=== PATIENT | female | born 1945 | race Caucasian/White ===

== ENCOUNTER 2017-06-26 12:32 | Inpatient (IN) | payer MEDICARE, MEDICAID ==
[2017-06-26 12:32] VITALS: BMI 23.3
--- NOTE | 2017-06-26 12:52 | C.PDOC ---
History Of Present Illness 72 year old female with PMHx of open heart surgery, arthritis, HTN, DM presents to the ED for evaluation of chest pain along with SOB that has been going on for the past 2-3 weeks. Patient reports she took aspirin last night for her CP but did not help and she was not able to sleep all night due to the pain. Patient looks pale and anemic but she denies any prior hx of anemia. Patient denies abdominal pain, diarrhea, blood in the stool, fever, chills, nausea, vomit, headache, weakness, numbness. Time Seen by Provider: 06/26/17 12:37 Chief Complaint (Nursing): Shortness Of Breath History Per: Patient History/Exam Limitations: no limitations Onset/Duration Of Symptoms: Days Current Symptoms Are (Timing): Still Present Quality: "Pain" Exacerbating Factor(s): Exertion Associated Symptoms: Chest Pain, Ankle/Leg Swelling Recent travel outside of the [place]: No Additional History Per: Patient, Family Past Medical History Reviewed: Historical Data, Nursing Documentation, Vital Signs Vital Signs: Last Vital Signs Temp 97.2 F L 06/26/17 16:36 Pulse 70 06/26/17 16:36 Resp 20 06/26/17 16:36 BP 157/97 H 06/26/17 16:36 Pulse Ox 98 06/26/17 16:36 - Medical History PMH: Anemia, Arthritis, Atrial Fibrillation, CAD, Cardia Arrhythmia, CHF, COPD, Dementia, Diabetes, HTN, Hypercholesterolemia, Osteoporosis, Rheumatoid Arthritis (on embril) Denies: Hepatitis, HIV, Chronic Kidney Disease, Seizures, Sexually Transmitted Disease Surgical History: Appendectomy, CABG, Coronary Stent Denies: Pacemaker - [facility] Procedures ASSISTANCE WITH RESPIRATORY VENTILATION, <24 HRS, CPAP (03/24/15) CORONAR ARTERIOGR-2 CATH (04/29/13) ESOPHAGOGASTRODUODENOSCOPY [EGD] W/CLOSED BIOPSY (11/01/14) EXCISION OF SMALL INTESTINE, ENDO, DIAGN (05/20/15) FLUOROSCOPY OF LEFT HEART USING LOW OSMOLAR CONTRAST (06/25/16) FLUOROSCOPY OF MULT COR A GRAFT USING L OSM CONTRAST (06/25/16) FLUOROSCOPY OF MULT COR ART USING L OSM CONTRAST (06/25/16) LEFT HEART CARDIAC CATH (04/29/13) LT HEART ANGIOCARDIOGRAM (04/29/13) MEASURE OF CARDIAC SAMPL & PRESSURE, L HEART, PERC APPROACH (06/25/16) PACKED CELL TRANSFUSION (11/01/14) PERCUTANEOUS TRANSLUMINAL CORONARY ANGIOPLASTY [PTCA] (04/29/13) PLAIN RADIOGRAPHY OF LEFT HEART USING OTHER CONTRAST (03/24/15) PLAIN RADIOGRAPHY OF MULT COR ART USING OTH CONTRAST (03/24/15) PROCEDURE ON SINGLE VESSEL (04/29/13) TRANSFUSE NONAUT RED BLOOD CELLS IN PERIPH VEIN, PERC (05/20/15) Family History: States: Unknown Family Hx - Social History Hx Tobacco Use: Yes Hx Alcohol Use: No Hx Substance Use: No - Immunization History Hx Tetanus Toxoid Vaccination: No Hx Influenza Vaccination: No Hx Pneumococcal Vaccination: No Review Of Systems Constitutional: Negative for: Fever, Chills Cardiovascular: Positive for: Chest Pain. Negative for: Palpitations Respiratory: Positive for: Shortness of Breath. Negative for: Cough Gastrointestinal: Negative for: Nausea, Vomiting, Abdominal Pain, Diarrhea Genitourinary: Negative for: Dysuria, Hematuria Skin: Negative for: Rash Neurological: Negative for: Weakness, Numbness, Headache, Dizziness Physical Exam - Physical Exam Appears: Non-toxic, No Acute Distress Skin: Warm, Dry, Pale (anemic looking) Head: Atraumatic, Normacephalic Eye(s): bilateral: Normal Inspection Nose: No Discharge, No Epistaxis Oral Mucosa: Moist Neck: Normal ROM, Supple Chest: Symmetrical, Other (right chest birthmark, midline scar) Cardiovascular: Rhythm Regular, No Murmur Respiratory: Normal Breath Sounds, No Rales, No Rhonchi, No Wheezing Gastrointestinal/Abdominal: Soft, No Tenderness, No Guarding, No Rebound, Hernia (ventral), Other (midline scar) Extremity: Normal ROM, No Pedal Edema, No Calf Tenderness, Capillary Refill (< 2 seconds), No Deformity, Swelling (B/L pitting edema L > R) Neurological/Psych: Oriented x3, Normal Speech, Normal Cognition ED Course And Treatment - Laboratory Results Result Diagrams: 06/26/17 13:21 06/26/17 13:21 O2 Sat by Pulse Oximetry: 99 (On RA) Pulse Ox Interpretation: Normal - Radiology CXR: Viewed By Me, Read By Radiologist CXR Interpretation: Yes: Other (Interval limited right pleural effusion is in question with borderline right basilar atelectasis or infiltrate. 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 There is borderline pulmonary venous congestion.) Medical Decision Making Medical Decision Making: Impression : Persistent CP for the past 2-3 weeks, along with SOB. Plan: * EKG * Labs * CXR * UA Dr. Cedeno was called multiple times pending call back, ultimately he called back. Spoke with him regarding the patient and accepted the patient to be admitted to his service. Disposition Counseled Patient/Family Regarding: Studies Performed - Disposition Disposition: HOSPITALIZED Disposition Time: 14:47 Condition: GUARDED - POA Present On Arrival: None - Clinical Impression Clinical Impression: ACS (acute coronary syndrome), SOB (shortness of breath) - Scribe Statement The provider has reviewed the documentation as recorded by the Scribe De Tomas All medical record entries made by the Scribe were at my direction and personally dictated by me. I have reviewed the chart and agree that the record accurately reflects my personal performance of the history, physical exam, medical decision making, and the department course for this patient. I have also personally directed, reviewed, and agree with the discharge instructions and disposition. Decision To Admit - Pt Status Changed To: Hospital Disposition Of: Inpatient - Admit Certification Admit to Inpatient:: After my assessment, the patient will require hospitalization for at least two midnights. This is because of the severity of symptoms shown, intensity of services needed, and/or the medical risk in this patient being treated as an outpatient. - InPatient: Physician Admission Certification: I certify that this patient requires 2 or more midnights of care for the following reason:: chest pain, sob, complicated - . Bed Request Type: Telemetry Patient Diagnosis: ACS (acute coronary syndrome), SOB (shortness of breath)
[2017-06-26 13:26] LABS: BASO # 0.1 K/uL (0.0-0.2); BASO % 2.6 % (0.0-2.0); EOS % 0.6 % (0.0-4.0); HEMOGLOBIN 10.7 g/dL (11.0-16.0); LYMPH # 0.3 K/uL (1.0-4.3); LYMPH % 7.7 % (20.0-40.0); MEAN CORPUSCULAR HEMOGLOBIN 28.5 pg (27.0-31.0); MEAN CORPUSCULAR HGB CONC 32.3 g/dL (33.0-37.0); MEAN PLATELET VOLUME 9.2 fL (7.2-11.7); MONO # 0.5 K/uL (0.0-0.8); MONO % 13.2 % (0.0-10.0); NEUT # 2.8 K/uL (1.8-7.0); NEUT % 75.9 % (50.0-75.0); NRBC % 0.1 % (0.0-2.0); PLATELET COUNT 171 K/uL (130-400); RBC 3.76 Mil/uL (3.80-5.20); RED CELL DISTRIBUTION WIDTH 19.4 % (11.5-14.5); WHITE BLOOD COUNT 3.7 K/uL (4.8-10.8)
[2017-06-26 13:27] LABS: MEAN CELL VOLUME 88.3 fL (81.0-99.0)
--- NOTE | 2017-06-26 13:49 | RAD ---
PROCEDURE: CHEST RADIOGRAPH, 1 VIEW HISTORY: chest pain COMPARISON: Portable chest 06/27/2016. FINDINGS: LUNGS: Borderline patchy atelectasis or infiltrate is questioned at the right base. None is seen at the left. PLEURA: No pneumothorax bilaterally. Minimal right pleural effusion is in question. No left pleural effusion. CARDIOVASCULAR: Using sternotomy is now identified as well as prosthetic cardiac valve. Cardiomegaly appears grossly stable. Element of pulmonary venous congestion is questioned. Further clinical correlation is advised. OSSEOUS STRUCTURES: No significant abnormalities. VISUALIZED UPPER ABDOMEN: Normal. OTHER FINDINGS: None. IMPRESSION: Interval limited right pleural effusion is in question with borderline right basilar atelectasis or infiltrate. 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 There is borderline pulmonary venous congestion.
[2017-06-26 13:51] LABS: ALB/GLOB RATIO 0.6 (1.0-2.1); ALBUMIN 3.4 g/dL (3.5-5.0); ALT/SGPT 31 U/L (9-52); AST/SGOT 56 U/L (14-36); BLOOD UREA NITROGEN 17 mg/dL (7-17); CALCIUM 7.8 mg/dl (8.6-10.4); GFR AFRICAN-AMERICAN > 60; GFR NON-AFRICAN AMERICAN > 60
[2017-06-26 13:55] LABS: ANISOCYTOSIS SLIGHT; BANDS 3 % (0-2); EOSINOPHIL 3 % (0-4); HYPOCHROMIC SLIGHT; LYMPHOCYTE 14 % (20-40); MONOCYTE 12 % (0-10); NEUTROPHIL 68 % (50-75); NUCLEATED RED BLOOD CELL 1 % (0-0); PLATELET ESTIMATE NORMAL (NORMAL); POIKILOCYTOSIS SLIGHT; TOTAL CELLS COUNTED 100
[2017-06-26 13:56] LABS: MICROCYTOSIS SLIGHT; OVALOCYTES SLIGHT
[2017-06-26 13:58] LABS: B-TYPE NATRIURETIC PEPTIDE 34600 pg/mL (0-900)
[2017-06-26 15:55] LABS: SQUAMOUS EPITHIAL 1 /hpf (0-5); URINE BACTERIA MANY (<OCC); URINE BILIRUBIN NEGATIVE (NEGATIVE); URINE BLOOD 2+ (NEGATIVE); URINE CLARITY Clear (Clear); URINE COLOR Amber (YELLOW); URINE GLUCOSE (UA) NORMAL (Normal); URINE LEUKOCYTE ESTERASE NEG Leu/uL (Negative); URINE NITRATE NEGATIVE (NEGATIVE); URINE PROTEIN 2+ mg/dL (NEGATIVE)
[2017-06-26] MEDS ORDERED: Home Med 1 UNIT (Potassium Chloride [Potassium Chloride] 20 MEQ) PO SCH (16:30)
[2017-06-26 17:39] LABS: INR 1.4; PROTHROMBIN TIME 15.8 SECONDS (9.7-12.2)
[2017-06-26] MEDS: Rosuvastatin Calcium 2.5 mg Tab PO SCH (22:11)
--- NOTE | 2017-06-26 23:20 | CP.PCM.HP ---
History of Present Illness - History of Present Illness History of Present Illness: 72 year old female with PMHx of open heart surgery, arthritis, HTN, DM presents to the ED for evaluation of chest pain along with SOB that has been going on for the past 2-3 weeks. Patient reports she took aspirin last night for her CP but did not help and she was not able to sleep all night due to the pain. Patient looks pale and anemic but she denies any prior hx of anemia. Patient denies abdominal pain, diarrhea, blood in the stool, fever, chills, nausea, vomit, headache, weakness, numbness. IN ER TNI NEG BNP IS UP 2017 HAD CABG , [facility] SINCE SURGERY FIRST EPISODE OF ADMISSION H/O T2DM ON INSULIN , LV EF IS 35% Present on Admission - Present on Admission Any Indicators Present on Admission: No Review of Systems - Constitutional Constitutional: Lethargy, Malaise. absent: As Per HPI, Anorexia, Chills, Daytime Sleepiness, Excessive Sweating, Fatigue, Fever, Frequent Falls, Headache , Increased Appetite, Night Sweats, Snoring, Sleep Apnea, Weight Gain, Weight Loss, Weakness, Other - EENT Eyes: absent: As Per HPI, Blind Spots, Blurred Vision, Change in Vision, Decreased Night Vision, Diplopia, Discharge, Dry Eye, Exophthalmos, Floaters, Irritation, Itchy Eyes, Loss of Peripheral Vision, Pain, Photophobia, Requires Corrective Lenses, Sees Flashes, Spots in Vision, Tunnel Vision, Other Visual Disturbances, Loss of Vision, Other Ears: absent: As Per HPI, Decreased Hearing, Ear Discharge, Ear Pain, Tinnitus, Abnormal Hearing, Disequilibrium, Dizziness, Other Nose/Mouth/Throat: absent: As Per HPI, Epistaxis, Nasal Congestion, Nasal Discharge, Nasal Obstruction, Nasal Trauma, Nose Pain, Post Nasal Drip, Sinus Pain, Sinus Pressure, Bleeding Gums, Change in Voice, Dental Pain, Dry Mouth, Dysphagia, Halitosis, Hoarsness, Lip Swelling, Mouth Lesions, Mouth Pain, Odynophagia, Sore Throat, Throat Swelling, Tongue Swelling, Facial Pain, Neck Pain, Neck Mass, Other - Breasts Breasts: absent: As Per HPI, Change in Shape, Mass, Pain, Nipple Discharge, Nipple Inversion, Skin Changes, Swelling, Other - Cardiovascular Cardiovascular: Dyspnea, Dyspnea on Exertion, Edema, Orthopnea, Palpitations, Pedal Edema. absent: As Per HPI, Acrocyanosis, Chest Pain, Chest Pain at Rest, Chest Pain with Activity, Claudication, Diaphoresis, Irregular Heart Rhythm, Pain Radiating to Arm/Neck/Jaw, Leg Edema, Leg Ulcers, Lightheadedness, Paroxysmal Nocturnal Dyspnea, Radiating Pain, Rapid Heart Rate, Slow Heart Rate , Syncope, Other - Respiratory Respiratory: absent: As Per HPI, Cough, Dyspnea, Hemoptysis, Dyspnea on Exertion , Wheezing, Snoring, Stridor, Pain on Inspiration, Chest Congestion, Excessive Mucous Production, Change in Mucous Color, Pain with Coughing, Other - Gastrointestinal Gastrointestinal: absent: As Per HPI, Abdominal Pain, Belching, Bloating, Change in Bowel Habits, Change in Stool Character, Coffee Ground Emesis, Constipation, Cramping, Diarrhea, Dyspepsia, Dysphagia, Early Satiety, Excessive Flatus, Fecal Incontinence, Heartburn, Hematemesis, Hematochezia, Loose Stools, Melena, Nausea, Odynophagia, Temesmus, Vomiting, Other - Musculoskeletal Musculoskeletal: Arthralgias, Deformity, Muscle Weakness. absent: As Per HPI, Abnormal Gait, Atrophy, Back Pain, Joint Swelling, Limited Range of Motion, Loss of Height, Muscle Cramps, Myalgias, Neck Pain, Numbness, Radiating Pain into Limb, Stiffness, Tingling, Other - Integumentary Integumentary: absent: As Per HPI, Acne, Alopecia, Bleeding Lesions, Change in Hair, Change in Nails, Change in Pigmentation, Changing Lesions, Dry Skin, Erythema, Furuncle, Hirsutism, Lesions, New Lesions, Non-Healing Lesions, Photosensitivity, Pruritus, Rash, Skin Pain, Skin Ulcer, Sores, Striae, Swelling , Unusual Bruising, Wounds, Jaundice, Other - Neurological Neurological: Abnormal Hearing, Weakness. absent: As Per HPI, Abnormal Gait, Abnormal Movements, Abnormal Speech, Behavioral Changes, Burning Sensations, Confusion, Convulsions, Disequilibrium, Dizziness, Numbness, Focal Weakness, Headaches, Lack of Coordination, Loss of Vision, Memory Loss, Paresthesias, Radicular Pain, Restless Legs, Sensory Deficit, Syncope, Tingling, Tremor, Vertigo, Other Visual Disturbances, Other - Psychiatric Psychiatric: Change in Appetite, Difficulty Concentrating, Memory Loss Past Patient History - Infectious Disease Hx of Infectious Diseases: None - Past Medical History & Family History Past Medical History?: Yes - Past Social History Smoking Status: Former Smoker - CARDIAC Hx Cardiac Disorders: Yes Hx Atrial Fibrillation: Yes Hx Cardia Arrhythmia: Yes Hx Congestive Heart Failure: Yes Hx Hypercholesterolemia: Yes Hx Hypertension: Yes Hx Pacemaker: No - PULMONARY Hx Respiratory Disorders: Yes Hx Chronic Obstructive Pulmonary Disease (COPD): Yes - NEUROLOGICAL Hx Neurological Disorder: Yes Hx Dementia: Yes Hx Seizures: No - HEENT Hx HEENT Problems: No - RENAL Hx Chronic Kidney Disease: No - ENDOCRINE/METABOLIC Hx Endocrine Disorders: Yes Hx Diabetes Mellitus Type 2: Yes - HEMATOLOGICAL/ONCOLOGICAL Hx Blood Disorders: Yes Hx Anemia: Yes Hx Human Immunodeficiency Virus (HIV): No - INTEGUMENTARY Hx Dermatological Problems: No - MUSCULOSKELETAL/RHEUMATOLOGICAL Hx Musculoskeletal Disorders: Yes Hx Arthritis: Yes Hx Falls: No Hx Osteoporosis: Yes Hx Rheumatoid Arthritis: Yes (on embril) - GASTROINTESTINAL Hx Gastrointestinal Disorders: Yes Hx Ulcer: Yes Other/Comment: appendectomy history of endoscopies. ventral hernia - GENITOURINARY/GYNECOLOGICAL Hx Genitourinary Disorders: No Hx Sexually Transmitted Disorders: No - PSYCHIATRIC Hx Psychophysiologic Disorder: No Hx Substance Use: No - SURGICAL HISTORY Hx Surgeries: Yes Hx Appendectomy: Yes Hx Coronary Artery Bypass Graft: Yes Hx Coronary Stent: Yes - ANESTHESIA Hx Anesthesia: Yes Hx Anesthesia Reactions: No Hx Malignant Hyperthermia: No Meds Allergies/Adverse Reactions: Allergies Allergy/AdvReac Type Severity Reaction Status Date / Time No Known Allergies Allergy Verified 06/26/17 12:41 Physical Exam - Head Exam Head Exam: ATRAUMATIC - Eye Exam Eye Exam: EOMI, Normal appearance, PERRL - Neck Exam Neck exam: Positive for: Normal Inspection - Respiratory Exam Respiratory Exam: Decreased Breath Sounds, Rhonchi - Cardiovascular Exam Cardiovascular Exam: REGULAR RHYTHM, +S1, +S2 - GI/Abdominal Exam GI & Abdominal Exam: Normal Bowel Sounds, Soft. absent: Tenderness - Extremities Exam Extremities exam: Positive for: calf tenderness, full ROM, joint swelling, normal capillary refill, normal inspection, pedal edema, tenderness, pedal pulses present - Neurological Exam Neurological exam: Alert, Altered, CN II-XII Intact, Motor Sensory Deficit, Normal Gait, Oriented x3, Reflexes Normal Results - Vital Signs Recent Vital Signs: Last Vital Signs Temp 97.3 F L 06/26/17 20:55 Pulse 65 06/26/17 22:17 Resp 18 06/26/17 20:55 BP 135/85 06/26/17 20:55 Pulse Ox 97 06/26/17 20:55 - Labs Result Diagrams: 06/27/17 06:13 06/27/17 06:13 Labs: Laboratory Results - last 24 hr 06/26/17 06/26/17 06/26/17 12:41 13:21 13:21 WBC 3.7 L RBC 3.76 L Hgb 10.7 L Hct 33.2 L MCV 88.3 D MCH 28.5 MCHC 32.3 L RDW 19.4 H Plt Count 171 MPV 9.2 Neut % (Auto) 75.9 H Lymph % (Auto) 7.7 L [place] % (Auto) 13.2 H Eos % (Auto) 0.6 Baso % (Auto) 2.6 H Neut # 2.8 Lymph # 0.3 L [place] # 0.5 Eos # 0.0 Baso # 0.1 Neutrophils % (Manual) 68 Band Neutrophils % 3 H Lymphocytes % (Manual) 14 L Monocytes % (Manual) 12 H Eosinophils % (Manual) 3 Nucleated RBC % 1 H Platelet Estimate Normal Hypochromasia (manual) Slight Poikilocytosis (manual Slight Anisocytosis (manual) Slight Microcytosis (manual) Slight Macrocytosis (manual) Slight Ovalocytes Slight PT INR APTT Sodium 123 L Potassium 5.3 H Chloride 92 L Carbon Dioxide 23 Anion Gap 14 BUN 17 Creatinine 0.9 Est GFR ( Amer) > 60 Est GFR (Non-Af Amer) > 60 POC Glucose (mg/dL) 117 H Random Glucose 114 H Calcium 7.8 L Total Bilirubin 1.5 H AST 56 H ALT 31 Alkaline Phosphatase 177 H Troponin I 0.0260 NT-Pro-B Natriuret Pep 19261 H Total Protein 8.9 H Albumin 3.4 L Globulin 5.5 H Albumin/Globulin Ratio 0.6 L Urine Color Urine Clarity Urine pH Ur Specific [place] Urine Protein Urine Glucose (UA) Urine Ketones Urine Blood Urine Nitrate Urine Bilirubin Urine Urobilinogen Ur Leukocyte Esterase Urine WBC (Auto) Urine RBC (Auto) Ur Squamous Epith Cells Urine Bacteria Hyaline Casts 06/26/17 06/26/17 15:43 17:12 WBC RBC Hgb Hct MCV MCH MCHC RDW Plt Count MPV Neut % (Auto) Lymph % (Auto) [place] % (Auto) Eos % (Auto) Baso % (Auto) Neut # Lymph # [place] # Eos # Baso # Neutrophils % (Manual) Band Neutrophils % Lymphocytes % (Manual) Monocytes % (Manual) Eosinophils % (Manual) Nucleated RBC % Platelet Estimate Hypochromasia (manual) Poikilocytosis (manual Anisocytosis (manual) Microcytosis (manual) Macrocytosis (manual) Ovalocytes PT 15.8 H INR 1.4 APTT 38 H Sodium Potassium Chloride Carbon Dioxide Anion Gap BUN Creatinine Est GFR ( Amer) Est GFR (Non-Af Amer) POC Glucose (mg/dL) Random Glucose Calcium Total Bilirubin AST ALT Alkaline Phosphatase Troponin I NT-Pro-B Natriuret Pep Total Protein Albumin Globulin Albumin/Globulin Ratio Urine Color Janie Urine Clarity Clear Urine pH 5.0 Ur Specific [place] 1.016 Urine Protein 2+ H Urine Glucose (UA) Normal Urine Ketones Negative Urine Blood 2+ H Urine Nitrate Negative Urine Bilirubin Negative Urine Urobilinogen 4.0 H Ur Leukocyte Esterase Neg Urine WBC (Auto) 2 Urine RBC (Auto) 6 H Ur Squamous Epith Cells 1 Urine Bacteria Many H Hyaline Casts 11-20 H Assessment & Plan (1) CAD (coronary artery disease) Status: Acute Comment: AYLIN. OBTAIN OPERATIVE REPORT OF CABG (2) T2DM (type 2 diabetes mellitus) Status: Chronic (3) CHF (congestive heart failure) Status: Acute Comment: IV LASIX. CHECK NA
--- NOTE | 2017-06-27 00:56 | CARD ---
APPROVED REPORT EKG Measurement Heart [id number] <Conclusion> Normal sinus rhythm Left axis deviation Left ventricular hypertrophy with repolarization abnormality Cannot rule out Septal infarct, age undetermined Abnormal ECG
[2017-06-27 06:45] LABS: BASO % 1.2 % (0.0-2.0); EOS # 0.2 K/uL (0.0-0.7); HEMOGLOBIN 9.7 g/dL (11.0-16.0); LYMPH # 0.5 K/uL (1.0-4.3); LYMPH % 15.3 % (20.0-40.0); MEAN CELL VOLUME 87.6 fL (81.0-99.0); MEAN CORPUSCULAR HEMOGLOBIN 27.6 pg (27.0-31.0); MEAN CORPUSCULAR HGB CONC 31.5 g/dL (33.0-37.0); MEAN PLATELET VOLUME 8.8 fL (7.2-11.7); MONO # 0.5 K/uL (0.0-0.8); MONO % 15.4 % (0.0-10.0); NEUT % 63.1 % (50.0-75.0); NRBC % 0.5 % (0.0-2.0); RBC 3.51 Mil/uL (3.80-5.20); WHITE BLOOD COUNT 3.1 K/uL (4.8-10.8)
[2017-06-27 07:52] LABS: B-TYPE NATRIURETIC PEPTIDE 26200 pg/mL (0-900)
[2017-06-27] MEDS: (Novolin R) Insulin Human Regular 100 units/ml vial SC SCH ×4 (08:09→22:36)
[2017-06-27 08:16] LABS: ALB/GLOB RATIO 0.6 (1.0-2.1); ALBUMIN 2.8 g/dL (3.5-5.0); ALT/SGPT 31 U/L (9-52); AST/SGOT 45 U/L (14-36); BLOOD UREA NITROGEN 17 mg/dL (7-17); CALCIUM 7.3 mg/dl (8.6-10.4); CK-MB 0.49 ng/mL (0.0-3.38); GFR AFRICAN-AMERICAN > 60; GFR NON-AFRICAN AMERICAN > 60
[2017-06-27] MEDS ORDERED: Potassium Chloride 20 mEq ER Tab PO ONE (10:00)
[2017-06-27] MEDS ORDERED: ETANERCEPT 50 MG SC SCH (10:00)
[2017-06-27] MEDS: Pantoprazole 40 mg EC Tab PO SCH (10:11)
[2017-06-27] MEDS: Enoxaparin 40 mg Syringe SC SCH (10:13)
[2017-06-27 12:37] LABS: HDL CHOLESTEROL 20 mg/dL (30-70)
[2017-06-27 12:47] LABS: LDL CHOLESTEROL 105 mg/dL (0-129)
--- NOTE | 2017-06-27 13:55 | CP.PCM.PN ---
Subjective - Date & Time of Evaluation Date of Evaluation: 06/27/17 Time of Evaluation: 13:50 - Subjective Subjective: CHIEF COMPLAINTS TODAY : SOB AND WEAKNESS ROS. HEENT : N. Resp : No cough, wheezing ,pleuritic CP ,or hemoptysis Cardio : No anginal CP, palpitation GI : No abd.pain, n/v ,diarrhea or GI bleeding . 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 Musculoskel : No joint swelling , Derm : No rash Psych : Normal affect. Ext : No swelling ,calf pain PE. Pt. is alert awake in no distress. V.S As noted in the chart Head ,ear nose,throat and eyes : Normal. Neck : Supple with normal carotids. Lungs: RONCHI/RALES Heart : S1 & S2 normal with S4. No murmur. Abd : Soft non tender with normal bowel sounds. Neuro : Moves all ext. with no localized deficit. Ext : No edema with intact pulses.Non tender calves Derm : No rashes or decubitus ulcer. LABS/RADIOLOGY: NA 122 ASSESSMENT/PLAN : CPT NEPHROLOGY, LOW NA , SEC LASIX Objective - Vital Signs/Intake and Output Vital Signs (last 24 hours): Temp Pulse Resp BP Pulse Ox 98.8 F 60 20 140/89 99 06/27/17 07:54 06/27/17 07:54 06/27/17 07:54 06/27/17 10:11 06/27/17 07:54 - Medications Medications: Current Medications Aspirin (Ecotrin) 81 mg PO DAILY [facility] Last Admin: 06/27/17 10:14 Dose: 81 mg Enoxaparin Sodium (Lovenox) 40 mg SC DAILY [facility] Last Admin: 06/27/17 10:13 Dose: 40 mg Escitalopram Oxalate (Lexapro) 20 mg PO DAILY [facility] Last Admin: 06/27/17 10:14 Dose: 20 mg Furosemide (Lasix) 40 mg IVP DAILY [facility] Last Admin: 06/27/17 10:11 Dose: 40 mg Insulin Human Regular (Novolin R) 0 unit SC [facility] PRN Reason: Protocol Last Admin: 06/27/17 12:02 Dose: Not Given Losartan Potassium (Cozaar) 25 mg PO DAILY [facility] Last Admin: 06/27/17 10:10 Dose: 25 mg Metformin HCl (Glucophage) 1,000 mg PO DAILY [facility] Last Admin: 06/27/17 10:24 Dose: Not Given Metoprolol Tartrate (Lopressor) 50 mg PO BID [facility] Last Admin: 06/27/17 10:10 Dose: 50 mg Pantoprazole Sodium (Protonix Ec Tab) 40 mg PO DAILY [facility] Last Admin: 06/27/17 10:11 Dose: 40 mg Pneumococcal Polyvalent Vaccine (Pneumovax 23 Vaccine) 0.5 ml IM .ONCE ONE Stop: 06/28/17 10:01 Rosuvastatin Calcium (Crestor) 2.5 mg PO HS [facility] Last Admin: 06/26/17 22:11 Dose: 2.5 mg Sitagliptin Phosphate (Januvia) 50 mg PO DAILY [facility] Last Admin: 06/27/17 10:24 Dose: Not Given Zolpidem Tartrate (Ambien) 5 mg PO HS [facility] Last Admin: 06/26/17 22:11 Dose: 5 mg - Labs Labs: 06/27/17 06:13 06/27/17 06:13 PT 15.8 SECONDS (9.7-12.2) H 06/26/17 17:12 INR 1.4 06/26/17 17:12 APTT 38 SECONDS (21-34) H 06/26/17 17:12 Assessment and Plan (1) CAD (coronary artery disease) Status: Acute (2) T2DM (type 2 diabetes mellitus) Status: Chronic (3) CHF (congestive heart failure) Status: Acute
--- NOTE | 2017-06-27 14:08 | CP.PCM.CON ---
History of Present Illness - History of Present Illness History of Present Illness: Initial Nephrology Consultation: Assessment: Stable Hypervolemic Hyponatremia likely due to CHF Hypokalemia diabetes Mellitus, hypertension, CAD s/p CABG, chronic systolic CHF (FE 30-35%) , dementia Plan Hypertension control with meds as ordered. Patient on ACEI/ARB as Losartan Monitor Input/Output, daily weights and serum Na no need for hypertonic saline at this time. avoid correction in serum Na >6-8 meq/24 hrs CHF optimization will add evening dose of lasix as well supplement electrolytes oral fluid restriction to 1000 mL/day Check urine sodium, osmol, pro/cr ratio. serum uric acid, TSH, serum osmol, lipid panel further work up depending upon above results Glycemic control Further work up/management as per primary team Thanks for allowing me to participate in care of your patient. Will follow patient with you. Please call if any Qs Dr Angel Benavidez Office: [phone] Chief Complaint; leg swelling Reason for consult: Hyponatremia HPI: Pt is a 72 F with hx of diabetes Mellitus (years), hypertension (years), CAD s/p CABG, chronic systolic CHF (FE 30-35%), dementia presented with complaints of chest pain and SOB. she is being managed for CHF exacerbation. renal consult for hyponatremia. her serum Na has been in 125-130s last year. pt not aware about electrolyte abnormality. Denies OTC/herbal meds or NSAIDs no thiazide diuretic or pscyh meds. pt denies excess water intake hx of Etoh and smoking in past ROS: bedside Cardiovascular: No chest pain now. Pulmonary: improved shortness of breath Gastrointestinal: denies abdominal pain No nausea. No vomiting. Genitourinary: No pain while urinating. Denies blood in urine. All other negative Physical Examination: General Appearance: Comfortable, in no acute respiratory distress, co-operative . Vitals reviewed and noted as below Head; Atraumatic, normocephalic ENT: no ulcers no thrush. Tongue is midline. Oropharynx: no rash or ulcers. EYES: Pupils are equal, round and reactive to light accommodation. Eye muscles and extraocular movement intact. Sclera is anicteric. Neck; supple no lymphadenopathy, no thyromegaly or bruit Lungs: Normal respiratory rate/effort. Breath sounds bilateral decreased at bases with crackles Heart: Normal rate. s1s2 normal. No rub or gallop. Extremities: 1-2+ edema. No varicose veins Neurological: Patient is alert, awake. No focal deficit. Strength bilateral appropriate and equal Skin: Warm and dry. Normal turgor. No rash. Palpitation: Normal elasticity for age Abdomen: Abdomen is soft. Bowel sounds +. There is no abdominal tenderness, no guarding/rigidity no organomegaly Psych: normal insight and normal affect/mood MSK: no joint tenderness or swelling. Digits and nails normal, no deformity : kidney or bladder not palpable Labs/imaging reviewed. Past medical history, past surgical history, family history, social history, allergy reviewed and noted as below Family hx: no hx of CKD. Rest non-contributory Past Patient History - Infectious Disease Hx of Infectious Diseases: None - Past Medical History & Family History Past Medical History?: Yes - Past Social History Smoking Status: Former Smoker - CARDIAC Hx Cardiac Disorders: Yes Hx Atrial Fibrillation: Yes Hx Cardia Arrhythmia: Yes Hx Congestive Heart Failure: Yes Hx Hypercholesterolemia: Yes Hx Hypertension: Yes Hx Pacemaker: No - PULMONARY Hx Respiratory Disorders: Yes Hx Chronic Obstructive Pulmonary Disease (COPD): Yes - NEUROLOGICAL Hx Neurological Disorder: Yes Hx Dementia: Yes Hx Seizures: No - HEENT Hx HEENT Problems: No - RENAL Hx Chronic Kidney Disease: No - ENDOCRINE/METABOLIC Hx Endocrine Disorders: Yes Hx Diabetes Mellitus Type 2: Yes - HEMATOLOGICAL/ONCOLOGICAL Hx Blood Disorders: Yes Hx Anemia: Yes Hx Human Immunodeficiency Virus (HIV): No - INTEGUMENTARY Hx Dermatological Problems: No - MUSCULOSKELETAL/RHEUMATOLOGICAL Hx Musculoskeletal Disorders: Yes Hx Arthritis: Yes Hx Falls: No Hx Osteoporosis: Yes Hx Rheumatoid Arthritis: Yes (on embril) - GASTROINTESTINAL Hx Gastrointestinal Disorders: Yes Hx Ulcer: Yes Other/Comment: appendectomy history of endoscopies. ventral hernia - GENITOURINARY/GYNECOLOGICAL Hx Genitourinary Disorders: No Hx Sexually Transmitted Disorders: No - PSYCHIATRIC Hx Psychophysiologic Disorder: No Hx Substance Use: No - SURGICAL HISTORY Hx Surgeries: Yes Hx Appendectomy: Yes Hx Coronary Artery Bypass Graft: Yes Hx Coronary Stent: Yes - ANESTHESIA Hx Anesthesia: Yes Hx Anesthesia Reactions: No Hx Malignant Hyperthermia: No Meds Allergies/Adverse Reactions: Allergies Allergy/AdvReac Type Severity Reaction Status Date / Time No Known Allergies Allergy Verified 06/26/17 12:41 - Medications Medications: Current Medications Aspirin (Ecotrin) 81 mg PO DAILY [facility] Last Admin: 06/27/17 10:14 Dose: 81 mg Enoxaparin Sodium (Lovenox) 40 mg SC DAILY [facility] Last Admin: 06/27/17 10:13 Dose: 40 mg Escitalopram Oxalate (Lexapro) 20 mg PO DAILY [facility] Last Admin: 06/27/17 10:14 Dose: 20 mg Furosemide (Lasix) 40 mg IVP DAILY [facility] Last Admin: 06/27/17 10:11 Dose: 40 mg Furosemide (Lasix) 20 mg IVP QPM [facility] Insulin Human Regular (Novolin R) 0 unit SC [facility] PRN Reason: Protocol Last Admin: 06/27/17 12:02 Dose: Not Given Losartan Potassium (Cozaar) 25 mg PO DAILY [facility] Last Admin: 06/27/17 10:10 Dose: 25 mg Metformin HCl (Glucophage) 1,000 mg PO DAILY [facility] Last Admin: 06/27/17 10:24 Dose: Not Given Metoprolol Tartrate (Lopressor) 50 mg PO BID [facility] Last Admin: 06/27/17 10:10 Dose: 50 mg Pantoprazole Sodium (Protonix Ec Tab) 40 mg PO DAILY [facility] Last Admin: 06/27/17 10:11 Dose: 40 mg Pneumococcal Polyvalent Vaccine (Pneumovax 23 Vaccine) 0.5 ml IM .ONCE ONE Stop: 06/28/17 10:01 Potassium Chloride (K-Dur 20 Meq Er Tab) 20 meq PO BID [facility] Stop: 06/30/17 18:01 Rosuvastatin Calcium (Crestor) 2.5 mg PO HS [facility] Last Admin: 06/26/17 22:11 Dose: 2.5 mg Sitagliptin Phosphate (Januvia) 50 mg PO DAILY [facility] Last Admin: 06/27/17 10:24 Dose: Not Given Zolpidem Tartrate (Ambien) 5 mg PO HS [facility] Last Admin: 06/26/17 22:11 Dose: 5 mg Results - Vital Signs Recent Vital Signs: Last Vital Signs Temp 98.8 F 06/27/17 07:54 Pulse 60 06/27/17 07:54 Resp 20 06/27/17 07:54 BP 140/89 06/27/17 10:11 Pulse Ox 99 06/27/17 07:54 - Labs Result Diagrams: 06/27/17 06:13 06/27/17 06:13 Labs: Laboratory Results - last 24 hr 06/26/17 06/26/17 06/26/17 13:21 15:43 17:12 WBC RBC Hgb Hct MCV MCH MCHC RDW Plt Count MPV Neut % (Auto) Lymph % (Auto) [place] % (Auto) Eos % (Auto) Baso % (Auto) Neut # Lymph # [place] # Eos # Baso # PT 15.8 H INR 1.4 APTT 38 H Sodium Potassium Chloride Carbon Dioxide Anion Gap BUN Creatinine Est GFR ( Amer) Est GFR (Non-Af Amer) POC Glucose (mg/dL) Random Glucose Serum Osmolality Uric Acid Calcium Total Bilirubin AST ALT Alkaline Phosphatase Total Creatine Kinase CK-MB (Mass) Troponin I 0.0260 NT-Pro-B Natriuret Pep Total Protein Albumin Globulin Albumin/Globulin Ratio Triglycerides Cholesterol LDL Cholesterol Direct HDL Cholesterol TSH 3rd Generation Urine Color Janie Urine Clarity Clear Urine pH 5.0 Ur Specific [place] 1.016 Urine Protein 2+ H Urine Glucose (UA) Normal Urine Ketones Negative Urine Blood 2+ H Urine Nitrate Negative Urine Bilirubin Negative Urine Urobilinogen 4.0 H Ur Leukocyte Esterase Neg Urine WBC (Auto) 2 Urine RBC (Auto) 6 H Ur Squamous Epith Cells 1 Urine Bacteria Many H Hyaline Casts 11-20 H 06/27/17 06/27/17 06/27/17 06:13 06:13 06:41 WBC 3.1 L RBC 3.51 L Hgb 9.7 L Hct 30.8 L MCV 87.6 MCH 27.6 MCHC 31.5 L RDW 19.0 H Plt Count 139 MPV 8.8 Neut % (Auto) 63.1 Lymph % (Auto) 15.3 L [place] % (Auto) 15.4 H Eos % (Auto) 5.0 H Baso % (Auto) 1.2 Neut # 2.0 Lymph # 0.5 L [place] # 0.5 Eos # 0.2 Baso # 0.0 PT INR APTT Sodium 122 L Potassium 3.3 L Chloride 93 L Carbon Dioxide 24 Anion Gap 8 L BUN 17 Creatinine 0.9 Est GFR ( Amer) > 60 Est GFR (Non-Af Amer) > 60 POC Glucose (mg/dL) 59 L Random Glucose 61 L Serum Osmolality Uric Acid 7.0 Calcium 7.3 L Total Bilirubin 0.9 AST 45 H ALT 31 Alkaline Phosphatase 147 H Total Creatine Kinase 27 L CK-MB (Mass) 0.49 Troponin I 0.0330 NT-Pro-B Natriuret Pep 88093 H Total Protein 7.2 Albumin 2.8 L Globulin 4.5 H Albumin/Globulin Ratio 0.6 L Triglycerides 74 Cholesterol 135 LDL Cholesterol Direct 105 HDL Cholesterol 20 L TSH 3rd Generation 4.75 H Urine Color Urine Clarity Urine pH Ur Specific [place] Urine Protein Urine Glucose (UA) Urine Ketones Urine Blood Urine Nitrate Urine Bilirubin Urine Urobilinogen Ur Leukocyte Esterase Urine WBC (Auto) Urine RBC (Auto) Ur Squamous Epith Cells Urine Bacteria Hyaline Casts 06/27/17 06/27/17 06/27/17 06:42 06:58 11:32 WBC RBC Hgb Hct MCV MCH MCHC RDW Plt Count MPV Neut % (Auto) Lymph % (Auto) [place] % (Auto) Eos % (Auto) Baso % (Auto) Neut # Lymph # [place] # Eos # Baso # PT INR APTT Sodium Potassium Chloride Carbon Dioxide Anion Gap BUN Creatinine Est GFR ( Amer) Est GFR (Non-Af Amer) POC Glucose (mg/dL) 56 L 70 Random Glucose Serum Osmolality 270 L Uric Acid Calcium Total Bilirubin AST ALT Alkaline Phosphatase Total Creatine Kinase CK-MB (Mass) Troponin I NT-Pro-B Natriuret Pep Total Protein Albumin Globulin Albumin/Globulin Ratio Triglycerides Cholesterol LDL Cholesterol Direct HDL Cholesterol TSH 3rd Generation Urine Color Urine Clarity Urine pH Ur Specific [place] Urine Protein Urine Glucose (UA) Urine Ketones Urine Blood Urine Nitrate Urine Bilirubin Urine Urobilinogen Ur Leukocyte Esterase Urine WBC (Auto) Urine RBC (Auto) Ur Squamous Epith Cells Urine Bacteria Hyaline Casts 06/27/17 11:54 WBC RBC Hgb Hct MCV MCH MCHC RDW Plt Count MPV Neut % (Auto) Lymph % (Auto) [place] % (Auto) Eos % (Auto) Baso % (Auto) Neut # Lymph # [place] # Eos # Baso # PT INR APTT Sodium Potassium Chloride Carbon Dioxide Anion Gap BUN Creatinine Est GFR ( Amer) Est GFR (Non-Af Amer) POC Glucose (mg/dL) 105 Random Glucose Serum Osmolality Uric Acid Calcium Total Bilirubin AST ALT Alkaline Phosphatase Total Creatine Kinase CK-MB (Mass) Troponin I NT-Pro-B Natriuret Pep Total Protein Albumin Globulin Albumin/Globulin Ratio Triglycerides Cholesterol LDL Cholesterol Direct HDL Cholesterol TSH 3rd Generation Urine Color Urine Clarity Urine pH Ur Specific [place] Urine Protein Urine Glucose (UA) Urine Ketones Urine Blood Urine Nitrate Urine Bilirubin Urine Urobilinogen Ur Leukocyte Esterase Urine WBC (Auto) Urine RBC (Auto) Ur Squamous Epith Cells Urine Bacteria Hyaline Casts
[2017-06-27 15:38] LABS: OSMOLALITY,URINE 287 mosm/kg (300-1000)
[2017-06-27] MEDS: Potassium Chloride 20 mEq ER Tab PO SCH (18:08)
[2017-06-27] MEDS: Rosuvastatin Calcium 2.5 mg Tab PO SCH (21:05)
[2017-06-28 07:41] LABS: HEMOGLOBIN 9.9 g/dL (11.0-16.0); MEAN CELL VOLUME 87.7 fL (81.0-99.0); MEAN CORPUSCULAR HEMOGLOBIN 28.5 pg (27.0-31.0); MEAN CORPUSCULAR HGB CONC 32.5 g/dL (33.0-37.0); RBC 3.46 Mil/uL (3.80-5.20); RED CELL DISTRIBUTION WIDTH 18.7 % (11.5-14.5); WHITE BLOOD COUNT 3.3 K/uL (4.8-10.8)
[2017-06-28] MEDS: (Novolin R) Insulin Human Regular 100 units/ml vial SC SCH ×4 (07:58→21:35)
[2017-06-28 08:33] LABS: ALB/GLOB RATIO 0.6 (1.0-2.1); ALT/SGPT 29 U/L (9-52); AST/SGOT 42 U/L (14-36); BLOOD UREA NITROGEN 15 mg/dL (7-17); CALCIUM 7.4 mg/dl (8.6-10.4); GFR AFRICAN-AMERICAN > 60; GFR NON-AFRICAN AMERICAN > 60
[2017-06-28] MEDS ORDERED: Pneumococcal 23-Valent Vaccine IM ONE (10:00)
[2017-06-28] MEDS ORDERED: Influenza Vaccine 60 mcg/0.5 mL SYR (4YR UP) IM ONE (10:00)
[2017-06-28] MEDS: Potassium Chloride 20 mEq ER Tab PO SCH ×2 (10:09→17:19)
[2017-06-28] MEDS: Pantoprazole 40 mg EC Tab PO SCH (10:11)
[2017-06-28] MEDS: Enoxaparin 40 mg Syringe SC SCH (10:12)
[2017-06-28 11:05] LABS: EOS # 0.2 K/uL (0.0-0.7); LYMPH # 0.6 K/uL (1.0-4.3); MONO # 0.1 K/uL (0.0-0.8); NEUT # 2.4 K/uL (1.8-7.0)
[2017-06-28] MEDS: Magnesium Oxide 400 mg Tab UD PO SCH ×2 (11:25→17:19)
[2017-06-28] MEDS: Magnesium Sulfate 1 gm in D5W 1 GM/100 ML BAG IVPB SCH ×2 (11:26→12:17)
[2017-06-28] MEDS ORDERED: Tolvaptan 15 MG TAB PO ONE (11:30)
--- NOTE | 2017-06-28 14:29 | CP.PCM.PN ---
Subjective - Date & Time of Evaluation Date of Evaluation: 06/28/17 Time of Evaluation: 14:27 - Subjective Subjective: CHIEF COMPLAINTS TODAY : SOB AND WEAKNESS LESS ROS. HEENT : N. Resp : No cough, wheezing ,pleuritic CP ,or hemoptysis Cardio : No anginal CP, palpitation GI : No abd.pain, n/v ,diarrhea or GI bleeding . 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 Musculoskel : No joint swelling , Derm : No rash Psych : Normal affect. Ext : No swelling ,calf pain PE. Pt. is alert awake in no distress. V.S As noted in the chart Head ,ear nose,throat and eyes : Normal. Neck : Supple with normal carotids. Lungs: RONCHI/RALES Heart : S1 & S2 normal with S4. No murmur. Abd : Soft non tender with normal bowel sounds. Neuro : Moves all ext. with no localized deficit. Ext : No edema with intact pulses.Non tender calves Derm : No rashes or decubitus ulcer. LABS/RADIOLOGY: NA [address] [facility] [facility] [place] [facility] [place] NOTED RINALDI TO LAD .SG TO OM AND PDA POST MV REPAIR WILL GET ECHO CONT LASIX Objective - Vital Signs/Intake and Output Vital Signs (last 24 hours): Temp Pulse Resp BP Pulse Ox 98.4 F 112 H 18 113/73 97 06/28/17 13:54 06/28/17 13:54 06/28/17 08:46 06/28/17 13:54 06/28/17 13:54 - Medications Medications: Current Medications Aspirin (Ecotrin) 81 mg PO DAILY [facility] Last Admin: 06/28/17 10:11 Dose: 81 mg Enoxaparin Sodium (Lovenox) 40 mg SC DAILY [facility] Last Admin: 06/28/17 10:12 Dose: 40 mg Escitalopram Oxalate (Lexapro) 20 mg PO DAILY [facility] Last Admin: 06/28/17 10:11 Dose: 20 mg Furosemide (Lasix) 40 mg IVP DAILY [facility] Last Admin: 06/28/17 10:11 Dose: 40 mg Insulin Human Regular (Novolin R) 0 unit SC [facility] PRN Reason: Protocol Last Admin: 06/28/17 12:21 Dose: Not Given Losartan Potassium (Cozaar) 25 mg PO DAILY [facility] Last Admin: 06/28/17 10:11 Dose: 25 mg Magnesium Oxide (Mag-Ox) 400 mg PO BID [facility] Last Admin: 06/28/17 11:25 Dose: 400 mg Metformin HCl (Glucophage) 1,000 mg PO DAILY [facility] Last Admin: 06/28/17 09:43 Dose: Not Given Metoprolol Tartrate (Lopressor) 50 mg PO BID [facility] Last Admin: 06/28/17 10:12 Dose: Not Given Pantoprazole Sodium (Protonix Ec Tab) 40 mg PO DAILY [facility] Last Admin: 06/28/17 10:11 Dose: 40 mg Potassium Chloride (K-Dur 20 Meq Er Tab) 20 meq PO BID [facility] Stop: 06/30/17 18:01 Last Admin: 06/28/17 10:09 Dose: 20 meq Rosuvastatin Calcium (Crestor) 2.5 mg PO [facility] Last Admin: 06/27/17 21:05 Dose: 2.5 mg Sitagliptin Phosphate (Januvia) 50 mg PO DAILY [facility] Last Admin: 06/28/17 09:43 Dose: Not Given Zolpidem Tartrate (Ambien) 5 mg PO [facility] Last Admin: 06/27/17 22:32 Dose: 5 mg - Labs Labs: 06/28/17 07:01 06/28/17 07:01 PT 15.8 SECONDS (9.7-12.2) H 06/26/17 17:12 INR 1.4 06/26/17 17:12 APTT 38 SECONDS (21-34) H 06/26/17 17:12 Assessment and Plan (1) CAD (coronary artery disease) Status: Acute (2) T2DM (type 2 diabetes mellitus) Status: Chronic (3) CHF (congestive heart failure) Status: Acute
--- NOTE | 2017-06-28 15:32 | CP.PCM.PN ---
Subjective - Date & Time of Evaluation Date of Evaluation: 06/28/17 Time of Evaluation: 15:29 - Subjective Subjective: Follow up Nephrology Consultation: Assessment: Stable Hypervolemic Hyponatremia likely due to CHF. high urine Na and osmol suggest elevated ADH ? some contribution from her neuro-psych meds Hypokalemia, hypomagnesemia diabetes Mellitus, hypertension, CAD s/p CABG, chronic systolic CHF (FE 30-35%) , dementia Plan Hypertension control with meds as ordered. Patient on ACEI/ARB as Losartan Monitor Input/Output, daily weights and serum Na no need for hypertonic saline at this time. avoid correction in serum Na >6-8 meq/24 hrs CHF optimization continue with lasix. will also dose of tolvaptan today. monitor serum Na q 6 hr supplement electrolytes as needed. oral fluid restriction to 1000 mL/day dose of Mag given Glycemic control Further work up/management as per primary team Thanks for allowing me to participate in care of your patient. Will follow patient with you. Please call if any Qs. d/w team Dr Angel Benavidez Office: [phone] Chief Complaint; leg swelling Reason for consult: Hyponatremia HPI: Pt is a 72 F with hx of diabetes Mellitus (years), hypertension (years), CAD s/p CABG, chronic systolic CHF (FE 30-35%), dementia presented with complaints of chest pain and SOB. she is being managed for CHF exacerbation. renal consult for hyponatremia. her serum Na has been in 125-130s last year. pt not aware about electrolyte abnormality. Denies OTC/herbal meds or NSAIDs no thiazide diuretic. on SSRI. pt denies excess water intake hx of Etoh and smoking in past ROS: Cardiovascular: No chest pain now. Pulmonary: improved shortness of breath Gastrointestinal: denies abdominal pain No nausea. No vomiting. Genitourinary: No pain while urinating. Denies blood in urine. All other negative Physical Examination: General Appearance: Comfortable, in no acute respiratory distress, co-operative . Vitals reviewed and noted as below Head; Atraumatic, normocephalic ENT: no ulcers no thrush. Tongue is midline. Oropharynx: no rash or ulcers. EYES: Pupils are equal, round and reactive to light accommodation. Eye muscles and extraocular movement intact. Sclera is anicteric. Neck; supple no lymphadenopathy, no thyromegaly or bruit Lungs: Normal respiratory rate/effort. Breath sounds bilateral decreased at bases with crackles Heart: Normal rate. s1s2 normal. No rub or gallop. Extremities: 2+ edema. No varicose veins Neurological: Patient is alert, awake. No focal deficit. Strength bilateral appropriate and equal Skin: Warm and dry. Normal turgor. No rash. Palpitation: Normal elasticity for age Abdomen: Abdomen is soft. Bowel sounds +. There is no abdominal tenderness, no guarding/rigidity no organomegaly Psych: normal insight and normal affect/mood MSK: no joint tenderness or swelling. Digits and nails normal, no deformity : kidney or bladder not palpable Labs/imaging reviewed. Past medical history, past surgical history, family history, social history, allergy reviewed and noted as below Family hx: no hx of CKD. Rest non-contributory Objective - Vital Signs/Intake and Output Vital Signs (last 24 hours): Temp Pulse Resp BP Pulse Ox 98.4 F 112 H 18 113/73 97 06/28/17 13:54 06/28/17 13:54 06/28/17 08:46 06/28/17 13:54 06/28/17 13:54 Intake and Output: 06/28/17 06/28/17 06:59 18:59 Intake Total 760 Output Total 200 Balance 560 - Medications Medications: Current Medications Aspirin (Ecotrin) 81 mg PO DAILY [facility] Last Admin: 06/28/17 10:11 Dose: 81 mg Enoxaparin Sodium (Lovenox) 40 mg SC DAILY [facility] Last Admin: 06/28/17 10:12 Dose: 40 mg Escitalopram Oxalate (Lexapro) 20 mg PO DAILY [facility] Last Admin: 06/28/17 10:11 Dose: 20 mg Furosemide (Lasix) 40 mg IVP DAILY [facility] Last Admin: 06/28/17 10:11 Dose: 40 mg Insulin Human Regular (Novolin R) 0 unit SC [facility] PRN Reason: Protocol Last Admin: 06/28/17 12:21 Dose: Not Given Losartan Potassium (Cozaar) 25 mg PO DAILY [facility] Last Admin: 06/28/17 10:11 Dose: 25 mg Magnesium Oxide (Mag-Ox) 400 mg PO BID [facility] Last Admin: 06/28/17 11:25 Dose: 400 mg Metformin HCl (Glucophage) 1,000 mg PO DAILY [facility] Last Admin: 06/28/17 09:43 Dose: Not Given Metoprolol Tartrate (Lopressor) 50 mg PO BID [facility] Last Admin: 06/28/17 10:12 Dose: Not Given Pantoprazole Sodium (Protonix Ec Tab) 40 mg PO DAILY [facility] Last Admin: 06/28/17 10:11 Dose: 40 mg Potassium Chloride (K-Dur 20 Meq Er Tab) 20 meq PO BID [facility] Stop: 06/30/17 18:01 Last Admin: 06/28/17 10:09 Dose: 20 meq Rosuvastatin Calcium (Crestor) 2.5 mg PO HS [facility] Last Admin: 06/27/17 21:05 Dose: 2.5 mg Sitagliptin Phosphate (Januvia) 50 mg PO DAILY [facility] Last Admin: 06/28/17 09:43 Dose: Not Given Zolpidem Tartrate (Ambien) 5 mg PO HS [facility] Last Admin: 06/27/17 22:32 Dose: 5 mg - Labs Labs: 06/28/17 07:01 06/28/17 07:01 PT 15.8 SECONDS (9.7-12.2) H 06/26/17 17:12 INR 1.4 06/26/17 17:12 APTT 38 SECONDS (21-34) H 06/26/17 17:12
[2017-06-28] MEDS: Rosuvastatin Calcium 2.5 mg Tab PO SCH (22:29)
[2017-06-29 02:17] VITALS: RESP 20
[2017-06-29 06:38] LABS: BLOOD UREA NITROGEN 15 mg/dL (7-17); CALCIUM 7.6 mg/dl (8.6-10.4); GFR AFRICAN-AMERICAN > 60; GFR NON-AFRICAN AMERICAN 55; MAGNESIUM 1.5 mg/dL (1.6-2.3)
[2017-06-29 07:28] LABS: MEAN CELL VOLUME 87.2 fL (81.0-99.0); MEAN CORPUSCULAR HEMOGLOBIN 29.2 pg (27.0-31.0); MEAN CORPUSCULAR HGB CONC 33.5 g/dL (33.0-37.0); MEAN PLATELET VOLUME 9.4 fL (7.2-11.7); RBC 3.42 Mil/uL (3.80-5.20); RED CELL DISTRIBUTION WIDTH 18.4 % (11.5-14.5)
[2017-06-29] MEDS: (Novolin R) Insulin Human Regular 100 units/ml vial SC SCH ×4 (07:41→22:36)
[2017-06-29] MEDS: Magnesium Oxide 400 mg Tab UD PO SCH ×2 (10:24→17:52)
[2017-06-29] MEDS: Pantoprazole 40 mg EC Tab PO SCH (10:25)
[2017-06-29] MEDS: Potassium Chloride 20 mEq ER Tab PO SCH ×2 (10:25→17:52)
[2017-06-29] MEDS: Enoxaparin 40 mg Syringe SC SCH (10:27)
[2017-06-29 11:58] LABS: EOS # 0.6 K/uL (0.0-0.7); LYMPH # 0.2 K/uL (1.0-4.3); MONO # 0.2 K/uL (0.0-0.8); NEUT # 2.3 K/uL (1.8-7.0)
--- NOTE | 2017-06-29 14:23 | CP.PCM.PN ---
Subjective - Date & Time of Evaluation Date of Evaluation: 06/29/17 Time of Evaluation: 14:20 - Subjective Subjective: CHIEF COMPLAINTS TODAY : SOB AND WEAKNESS LESS SWELLING LEGS ROS. HEENT : N. Resp : No cough, wheezing ,pleuritic CP ,or hemoptysis Cardio : No anginal CP, palpitation GI : No abd.pain, n/v ,diarrhea or GI bleeding . 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 Musculoskel : No joint swelling , Derm : No rash Psych : Normal affect. Ext : No swelling ,calf pain PE. Pt. is alert awake in no distress. V.S As noted in the chart Head ,ear nose,throat and eyes : Normal. Neck : Supple with normal carotids. Lungs: RONCHI/RALES Heart : S1 & S2 normal with S4. No murmur. Abd : Soft non tender with normal bowel sounds. Neuro : Moves all ext. with no localized deficit. Ext : POS edema with intact pulses.Non tender calves Derm : No rashes or decubitus ulcer. LABS/RADIOLOGY: NA 123, DOPPLER L EXT PENDING ECHO , LV EF 25-30%, MR.AR, MILD PHT MOD. 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 [place] PLAN [facility] [place] [facility] REPORT NOTED RINALDI TO LAD .SG TO OM AND PDA POST MV REPAIR CONT ISCHEMIC CARDIOMYOPATHY THERAPY MONITOR NA Objective - Vital Signs/Intake and Output Vital Signs (last 24 hours): Temp Pulse Resp BP Pulse Ox 97.4 F L 65 20 140/95 H 96 06/28/17 23:15 06/29/17 10:40 06/28/17 23:15 06/29/17 10:27 06/28/17 23:15 Intake and Output: 06/29/17 06/29/17 11:59 23:59 Intake Total 240 Balance 240 - Medications Medications: Current Medications Aspirin (Ecotrin) 81 mg PO DAILY [facility] Last Admin: 06/29/17 10:24 Dose: 81 mg Enoxaparin Sodium (Lovenox) 40 mg SC DAILY [facility] Last Admin: 06/29/17 10:27 Dose: 40 mg Escitalopram Oxalate (Lexapro) 20 mg PO DAILY [facility] Last Admin: 06/29/17 10:24 Dose: 20 mg Furosemide (Lasix) 40 mg IVP DAILY [facility] Last Admin: 06/29/17 10:27 Dose: 40 mg Insulin Human Regular (Novolin R) [address] [facility] PRN Reason: Protocol Last Admin: 06/29/17 11:41 Dose: Not Given Losartan Potassium (Cozaar) 25 mg PO DAILY [facility] Last Admin: 06/29/17 10:43 Dose: 25 mg Magnesium Oxide (Mag-Ox) 400 mg PO BID [facility] Last Admin: 06/29/17 10:24 Dose: 400 mg Metformin HCl (Glucophage) 1,000 mg PO DAILY [facility] Last Admin: 06/29/17 10:24 Dose: 1,000 mg Metoprolol Tartrate (Lopressor) 50 mg PO BID [facility] Last Admin: 06/29/17 10:39 Dose: 50 mg Pantoprazole Sodium (Protonix Ec Tab) 40 mg PO DAILY [facility] Last Admin: 06/29/17 10:25 Dose: 40 mg Potassium Chloride (K-Dur 20 Meq Er Tab) 20 meq PO BID [facility] Stop: 06/30/17 18:01 Last Admin: 06/29/17 10:25 Dose: 20 meq Rosuvastatin Calcium (Crestor) 2.5 mg PO HS [facility] Last Admin: 06/28/17 22:29 Dose: 2.5 mg Sitagliptin Phosphate (Januvia) 50 mg PO DAILY [facility] Last Admin: 06/29/17 10:24 Dose: 50 mg Zolpidem Tartrate (Ambien) 5 mg PO HS [facility] Last Admin: 06/28/17 22:29 Dose: 5 mg - Labs Labs: 06/29/17 06:12 06/29/17 06:12 PT 15.8 SECONDS (9.7-12.2) H 06/26/17 17:12 INR 1.4 06/26/17 17:12 APTT 38 SECONDS (21-34) H 06/26/17 17:12 Assessment and Plan (1) CAD (coronary artery disease) Status: Acute (2) T2DM (type 2 diabetes mellitus) Status: Chronic (3) CHF (congestive heart failure) Status: Acute
[2017-06-29] MEDS: Rosuvastatin Calcium 2.5 mg Tab PO SCH (21:53)
[2017-06-30 07:41] LABS: HEMOGLOBIN 9.9 g/dL (11.0-16.0); MEAN CELL VOLUME 87.8 fL (81.0-99.0); MEAN CORPUSCULAR HEMOGLOBIN 29.7 pg (27.0-31.0); MEAN CORPUSCULAR HGB CONC 33.8 g/dL (33.0-37.0); MEAN PLATELET VOLUME 9.2 fL (7.2-11.7); RBC 3.35 Mil/uL (3.80-5.20); RED CELL DISTRIBUTION WIDTH 18.8 % (11.5-14.5); WHITE BLOOD COUNT 2.6 K/uL (4.8-10.8)
[2017-06-30] MEDS: (Novolin R) Insulin Human Regular 100 units/ml vial SC SCH ×4 (07:41→22:14)
[2017-06-30 07:59] LABS: BLOOD UREA NITROGEN 16 mg/dL (7-17); CALCIUM 7.6 mg/dl (8.6-10.4); GFR AFRICAN-AMERICAN > 60; GFR NON-AFRICAN AMERICAN > 60
[2017-06-30] MEDS: Enoxaparin 40 mg Syringe SC SCH (09:28)
[2017-06-30] MEDS: Pantoprazole 40 mg EC Tab PO SCH (09:29)
[2017-06-30] MEDS: Magnesium Oxide 400 mg Tab UD PO SCH ×2 (09:30→17:26)
[2017-06-30] MEDS: Potassium Chloride 20 mEq ER Tab PO SCH ×2 (09:30→17:27)
--- NOTE | 2017-06-30 16:02 | CP.PCM.PN ---
Subjective - Date & Time of Evaluation Date of Evaluation: 06/30/17 Time of Evaluation: 16:01 - Subjective Subjective: CHIEF COMPLAINTS TODAY : SOB AND WEAKNESS LESS SWELLING LEGS ROS. HEENT : N. Resp : No cough, wheezing ,pleuritic CP ,or hemoptysis Cardio : No anginal CP, palpitation GI : No abd.pain, n/v ,diarrhea or GI bleeding . 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 Musculoskel : No joint swelling , Derm : No rash Psych : Normal affect. Ext : No swelling ,calf pain PE. Pt. is alert awake in no distress. V.S As noted in the chart Head ,ear nose,throat and eyes : Normal. Neck : Supple with normal carotids. Lungs: RONCHI/RALES Heart : S1 & S2 normal with S4. No murmur. Abd : Soft non tender with normal bowel sounds. Neuro : Moves all ext. with no localized deficit. Ext : POS edema with intact pulses.Non tender calves Derm : No rashes or decubitus ulcer. LABS/RADIOLOGY: NA 123, DOPPLER L EXT PENDING ECHO , LV EF 25-30%, MR.AR, MILD PHT MOD. 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 ,MVREPAIR [place] PLAN [facility] NOTED RINALDI TO LAD .SG TO OM AND PDA POST MV REPAIR CONT ISCHEMIC CARDIOMYOPATHY THERAPY MONITOR NA Objective - Vital Signs/Intake and Output Vital Signs (last 24 hours): Temp Pulse Resp BP Pulse Ox 98.3 F 59 L 20 115/75 97 06/30/17 07:30 06/30/17 07:30 06/30/17 07:30 06/30/17 09:27 06/30/17 07:30 Intake and Output: 06/30/17 06/30/17 11:59 23:59 Intake Total 240 600 Balance 240 600 - Medications Medications: Current Medications Aspirin (Ecotrin) 81 mg PO DAILY [facility] Last Admin: 06/30/17 09:30 Dose: 81 mg Enoxaparin Sodium (Lovenox) 40 mg SC DAILY [facility] Last Admin: 06/30/17 09:28 Dose: 40 mg Escitalopram Oxalate (Lexapro) 20 mg PO DAILY [facility] Last Admin: 06/30/17 09:28 Dose: 20 mg Furosemide (Lasix) 40 mg IVP DAILY [facility] Last Admin: 06/30/17 09:27 Dose: 40 mg Insulin Human Regular (Novolin R) 0 unit SC ACHS [facility] PRN Reason: Protocol Last Admin: 06/30/17 12:16 Dose: Not Given Losartan Potassium (Cozaar) 25 mg PO DAILY [facility] Last Admin: 06/30/17 09:30 Dose: 25 mg Magnesium Oxide (Mag-Ox) 400 mg PO BID [facility] Last Admin: 06/30/17 09:30 Dose: 400 mg Metformin HCl (Glucophage) 1,000 mg PO DAILY [facility] Last Admin: 06/30/17 09:31 Dose: Not Given Metoprolol Tartrate (Lopressor) 50 mg PO BID [facility] Last Admin: 06/30/17 09:31 Dose: Not Given Pantoprazole Sodium (Protonix Ec Tab) 40 mg PO DAILY [facility] Last Admin: 06/30/17 09:29 Dose: 40 mg Potassium Chloride (K-Dur 20 Meq Er Tab) 20 meq PO BID [facility] Stop: 06/30/17 18:01 Last Admin: 06/30/17 09:30 Dose: 20 meq Rosuvastatin Calcium (Crestor) 2.5 mg PO HS [facility] Last Admin: 06/29/17 21:53 Dose: 2.5 mg Sitagliptin Phosphate (Januvia) 50 mg PO DAILY [facility] Last Admin: 06/30/17 09:31 Dose: Not Given Tramadol HCl (Ultram) 50 mg PO Q8 PRN PRN Reason: Pain, moderate (4-7) Last Admin: 06/30/17 09:28 Dose: 50 mg Zolpidem Tartrate (Ambien) 5 mg PO HS [facility] Last Admin: 06/29/17 21:53 Dose: 5 mg - Labs Labs: 06/30/17 07:30 06/30/17 07:30 PT 15.8 SECONDS (9.7-12.2) H 06/26/17 17:12 INR 1.4 06/26/17 17:12 APTT 38 SECONDS (21-34) H 06/26/17 17:12 Assessment and Plan (1) CAD (coronary artery disease) Status: Acute (2) T2DM (type 2 diabetes mellitus) Status: Chronic (3) CHF (congestive heart failure) Status: Acute
--- NOTE | 2017-06-30 17:41 | CP.PCM.PN ---
Subjective - Date & Time of Evaluation Date of Evaluation: 06/30/17 Time of Evaluation: 17:41 - Subjective Subjective: renal follow up note Physical Examination: General Appearance: Comfortable, in no acute respiratory distress, co-operative . Head; Atraumatic, normocephalic ENT: no ulcers EYES: Sclera is anicteric. Neck; supple Lungs: Normal respiratory rate/effort. Breath sounds bilateral decreased at bases with crackles Heart: Normal rate. s1s2 normal. No rub or gallop. Extremities: 2+ edema. No varicose veins Neurological: Patient is alert, awake. No focal deficit. Skin: Warm and dry. Abdomen: Abdomen is soft. Bowel sounds +. There is no abdominal tenderness, no guarding/rigidity no organomegaly Psych: normal insight and normal affect/mood MSK: no joint tenderness or swelling. Assessment: Stable Hypervolemic Hyponatremia likely due to CHF. high urine Na and osmol suggest elevated ADH ? some contribution from her neuro-psych meds Hypokalemia, hypomagnesemia diabetes Mellitus, hypertension, CAD s/p CABG, chronic systolic CHF (FE 30-35%) , dementia Plan sodium stable at 125, can do free water restriction, if drops to less than 125 will give another dose of tolvaptan Monitor Input/Output, daily weights and serum Na CHF optimization continue with lasix. Objective - Vital Signs/Intake and Output Vital Signs (last 24 hours): Temp Pulse Resp BP Pulse Ox 98.3 F 57 L 20 136/73 98 06/30/17 15:04 06/30/17 16:00 06/30/17 15:04 06/30/17 15:04 06/30/17 15:04 Intake and Output: 06/30/17 06/30/17 06:59 18:59 Intake Total 560 600 Balance 560 600 - Medications Medications: Current Medications Aspirin (Ecotrin) 81 mg PO DAILY [facility] Last Admin: 06/30/17 09:30 Dose: 81 mg Enoxaparin Sodium (Lovenox) 40 mg SC DAILY [facility] Last Admin: 06/30/17 09:28 Dose: 40 mg Escitalopram Oxalate (Lexapro) 20 mg PO DAILY [facility] Last Admin: 06/30/17 09:28 Dose: 20 mg Furosemide (Lasix) 40 mg IVP DAILY [facility] Last Admin: 06/30/17 09:27 Dose: 40 mg Insulin Human Regular (Novolin R) 0 unit SC [facility] PRN Reason: Protocol Last Admin: 06/30/17 17:07 Dose: Not Given Losartan Potassium (Cozaar) 25 mg PO DAILY [facility] Last Admin: 06/30/17 09:30 Dose: 25 mg Magnesium Oxide (Mag-Ox) 400 mg PO BID [facility] Last Admin: 06/30/17 17:26 Dose: 400 mg Metformin HCl (Glucophage) 1,000 mg PO DAILY [facility] Last Admin: 06/30/17 09:31 Dose: Not Given Metoprolol Tartrate (Lopressor) 50 mg PO BID [facility] Last Admin: 06/30/17 17:27 Dose: Not Given Pantoprazole Sodium (Protonix Ec Tab) 40 mg PO DAILY [facility] Last Admin: 06/30/17 09:29 Dose: 40 mg Potassium Chloride (K-Dur 20 Meq Er Tab) 20 meq PO BID [facility] Stop: 06/30/17 18:01 Last Admin: 06/30/17 17:27 Dose: 20 meq Rosuvastatin Calcium (Crestor) 2.5 mg PO [facility] Last Admin: 06/29/17 21:53 Dose: 2.5 mg Sitagliptin Phosphate (Januvia) 50 mg PO DAILY [facility] Last Admin: 06/30/17 09:31 Dose: Not Given Tramadol HCl (Ultram) 50 mg PO Q8 PRN PRN Reason: Pain, moderate (4-7) Last Admin: 06/30/17 09:28 Dose: 50 mg Zolpidem Tartrate (Ambien) 5 mg PO HS [facility] Last Admin: 06/29/17 21:53 Dose: 5 mg - Labs Labs: 06/30/17 07:30 06/30/17 07:30 PT 15.8 SECONDS (9.7-12.2) H 06/26/17 17:12 INR 1.4 06/26/17 17:12 APTT 38 SECONDS (21-34) H 06/26/17 17:12
[2017-06-30] MEDS: Rosuvastatin Calcium 2.5 mg Tab PO SCH (21:28)
--- NOTE | 2017-07-01 00:30 | CARD ---
APPROVED REPORT EXAM: Two-dimensional and M-mode echocardiogram with Doppler and color Doppler. Other Information Quality : AverageRhythm : NSR INDICATION Fatigue Hypertension/HCVD CAD Chest Pain Surgery/Intervention Status/Post Mitral Valve Replacement: RISK FACTORS Hypertension Hyperlipidemia Diabetes M-Mode DIMENSIONS RVDd4.06 (2.1-3.2cm)Left Atrium (MM)4.84 (2.5-4.0cm) IVSd1.09 (0.7-1.1cm)Aortic Root3.87 (2.2-3.7cm) LVDd5.51 (4.0-5.6cm)Aortic Cusp Exc.1.91 (1.5-2.0cm) PWd1.09 (0.7-1.1cm)FS (%) 14 % LVDs4.72 (2.0-3.8cm)LVEF (%)30 (>50%) Aortic Valve AoV Peak Jzhihrga356.8cm/Luciano Peak GR.7mmHgAI P 1/2 [id number] Mitral Valve MV E Myfcqdco998.8cm/sMV A Kskutctv22.8cm/sMV [id number] E/A ratio2.2MVA (PHT)2.03cm2 TDI E/Lateral E'0.0E/Medial E'0.0 Tricuspid Valve TR Peak Urfixglt004fn/sTR Peak Gr.[id number] LEFT VENTRICLE The left ventricle is normal size. There is mild concentric left ventricular hypertrophy. The systolic function is severely impaired. Regional wall motion abnormalities noted. THE ANTERIOR AND SEPTAL GUTIERREZ REVEAL DYSKINESIS WITH WALL THINNING (INDICATIVE OF PRIOR TRANSMURAL [place]). THE INFERIOR WALL IS SEVERELY HYPOKINETIC THE LATERAL WALL IS MOD TO SEVERELY HYPOKINETIC There is a flattened septum consistent with right ventricle pressure overload. Transmitral Doppler flow pattern is Grade IV-fixed restrictive diastolic dysfunction. No left ventricle thrombus noted on this study. There is no ventricular septal defect visualized. RIGHT VENTRICLE The right ventricle is normal size. There is normal right ventricular wall thickness. The right ventricular systolic function is normal. ATRIA The left atrium is moderately dilated. The right atrium is moderately dilated. The interatrial septum is intact with no evidence for an atrial septal defect. AORTIC VALVE The aortic valve is mildly sclerotic. There is mild aortic regurgitation. There is no aortic valvular stenosis. There is no aortic valvular vegetation. MITRAL VALVE The mitral valve is calcified and displays decreased opening. There is no evidence of mitral valve prolapse. There is mild mitral valve stenosis. Mitral regurgitation is mild. TRICUSPID VALVE There is moderate tricuspid regurgitation. There is moderate tricuspid regurgitation. RAP > 20, PAP 50-60 PULMONIC VALVE The pulmonary valve is normal in structure. There is mild to moderate pulmonic valvular regurgitation. There is no pulmonic valvular stenosis. GREAT VESSELS The aortic root is normal in size. The ascending aorta is normal in size. There is mild pulmonary artery dilatation. Dilated IVC with poor inspiration collapse is consistent with elevated right atrial pressure. PERICARDIAL EFFUSION There is no pericardial effusion. There is no pleural effusion. <Conclusion> The systolic function is severely impaired. THE ANTERIOR AND SEPTAL GUTIERREZ REVEAL DYSKINESIS WITH WALL THINNING (INDICATIVE OF PRIOR TRANSMURAL TN). THE INFERIOR WALL IS SEVERELY HYPOKINETIC THE LATERAL WALL IS MOD TO SEVERELY HYPOKINETIC There is a flattened septum consistent with right ventricle pressure overload. Transmitral Doppler flow pattern is Grade IV-fixed restrictive diastolic dysfunction. The left atrium is moderately dilated. The right atrium is moderately dilated. There is mild concentric left ventricular hypertrophy. There is mild aortic regurgitation. The mitral valve is calcified and displays decreased opening. There is mild mitral valve stenosis. Mitral regurgitation is mild. There is moderate tricuspid regurgitation. RAP > 20, PAP 50-60 There is mild to moderate pulmonic valvular regurgitation. Dilated IVC with poor inspiration collapse is consistent with elevated right atrial pressure.
[2017-07-01] MEDS: (Novolin R) Insulin Human Regular 100 units/ml vial SC SCH ×4 (07:58→22:00)
[2017-07-01 08:00] LABS: HEMOGLOBIN 9.3 g/dL (11.0-16.0); MEAN CELL VOLUME 87.6 fL (81.0-99.0); MEAN CORPUSCULAR HEMOGLOBIN 29.3 pg (27.0-31.0); MEAN CORPUSCULAR HGB CONC 33.4 g/dL (33.0-37.0); MEAN PLATELET VOLUME 9.3 fL (7.2-11.7); RBC 3.18 Mil/uL (3.80-5.20); RED CELL DISTRIBUTION WIDTH 18.3 % (11.5-14.5)
--- NOTE | 2017-07-01 09:49 | VASCLAB ---
PROCEDURE: Lower Extremity Venous Duplex Exam. HISTORY: Lower extremity edema PRIORS: 06/25/216, normal. TECHNIQUE: Bilateral common femoral, femoral, popliteal and posterior tibial, peroneal and great saphenous veins were evaluated. Flow was assessed with color Doppler, compressibility, assessment of phasic flow and augmentation response. Report prepared by JEFFREY Mata FINDINGS: RIGHT: 1. Common Femoral Vein: 1.1. Compressibility - Fully compressible: Thrombus - None : Flow - Phasic: Augmentation -Normal: Reflux - None. 2. Femoral Vein: 2.1. Compressibility - Fully compressible: Thrombus - None : Flow - Phasic: Augmentation -Normal: Reflux - None. 3. Popliteal Vein: 3.1. Compressibility - Fully compressible: Thrombus - None : Flow - Phasic: Augmentation -Normal: Reflux - None. 4. Posterior Tibial Vein: 4.1. Compressibility - Fully compressible: Thrombus - None: Flow - Phasic: Augmentation -Normal: Reflux - None. 5. Peroneal Vein: 5.1. Compressibility - Fully compressible: Thrombus - None: Flow - Phasic: Augmentation -Normal: Reflux - None. 6. Great Saphenous Vein: 6.1. Compressibility - Fully compressible: Thrombus - None: Flow - Phasic: Augmentation - Normal: Reflux - None. LEFT: 1. Common Femoral Vein: 1.1. Compressibility - Fully compressible: Thrombus - None: Flow - Phasic: Augmentation -Normal: Reflux - None. 2. Femoral Vein: 2.1. Compressibility - Fully compressible: Thrombus - None: Flow - Phasic: Augmentation -Normal: Reflux - None. 3. Popliteal Vein: 3.1. Compressibility - Fully compressible: Thrombus - None : Flow - Phasic: Augmentation -Normal: Reflux - None. 4. Posterior Tibial Vein: 4.1. Compressibility - Fully compressible: Thrombus - None: Flow - Phasic: Augmentation -Normal: Reflux - None. 5. Peroneal Vein: 5.1. Compressibility - Fully compressible: Thrombus - None: Flow - Phasic: Augmentation -Normal: Reflux - None. 6. Great Saphenous Vein: 6.1. Previously harvested. OTHER FINDINGS: Right: None significant. Left: None significant. IMPRESSION: Right: No evidence of deep or superficial vein thrombosis of the right lower extremity. Pulsatile venous flow noted. Left: No evidence of deep or superficial vein thrombosis of the left lower extremity. Pulsatile venous flow noted.
[2017-07-01] MEDS: Pantoprazole 40 mg EC Tab PO SCH (11:03)
[2017-07-01] MEDS: Magnesium Oxide 400 mg Tab UD PO SCH ×2 (11:04→18:00)
[2017-07-01] MEDS: Enoxaparin 40 mg Syringe SC SCH (11:04)
[2017-07-01 11:38] LABS: BLOOD UREA NITROGEN 16 mg/dL (7-17); CALCIUM 7.7 mg/dl (8.6-10.4); GFR AFRICAN-AMERICAN > 60; GFR NON-AFRICAN AMERICAN > 60; MAGNESIUM 1.5 mg/dL (1.6-2.3)
[2017-07-01] MEDS: Magnesium Sulfate 1 gm in D5W 1 GM/100 ML BAG IVPB SCH ×2 (13:28→14:30)
[2017-07-01 13:35] LABS: SQUAMOUS EPITHIAL 2 /hpf (0-5); URINE BACTERIA MANY (<OCC); URINE BILIRUBIN NEGATIVE (NEGATIVE); URINE BLOOD 2+ (NEGATIVE); URINE CLARITY Hazy (Clear); URINE COLOR Amber (YELLOW); URINE GLUCOSE (UA) NORMAL (Normal); URINE HYALINE CAST 0-2 /lpf (0-2); URINE LEUKOCYTE ESTERASE 1+ Leu/uL (Negative); URINE NITRATE NEGATIVE (NEGATIVE); URINE PROTEIN 1+ mg/dL (NEGATIVE)
[2017-07-01 13:36] LABS: OSMOLALITY,URINE 539 mosm/kg (300-1000)
--- NOTE | 2017-07-01 13:43 | CP.PCM.DIS ---
Provider - Provider Date of Admission: 06/26/17 14:48 Attending physician: David Cedeno MD Time Spent in preparation of Discharge (in minutes): 35 Diagnosis - Discharge Diagnosis (1) CAD (coronary artery disease) Status: Acute (2) T2DM (type 2 diabetes mellitus) Status: Chronic (3) CHF (congestive heart failure) Status: Acute Hospital Course - Lab Results Lab Results: Most Recent Lab Values WBC 3.0 K/uL (4.8-10.8) L 07/01/17 07:21 RBC 3.18 Mil/uL (3.80-5.20) L 07/01/17 07:21 Hgb 9.3 g/dL (11.0-16.0) L 07/01/17 07:21 Hct 27.8 % (34.0-47.0) L 07/01/17 07:21 MCV 87.6 fL (81.0-99.0) 07/01/17 07:21 MCH 29.3 pg (27.0-31.0) 07/01/17 07:21 MCHC 33.4 g/dL (33.0-37.0) 07/01/17 07:21 RDW 18.3 % (11.5-14.5) H 07/01/17 07:21 Plt Count 142 K/uL (130-400) 07/01/17 07:21 MPV 9.3 fL (7.2-11.7) 07/01/17 07:21 Neut % (Auto) 75.0 % (50.0-75.0) 06/29/17 06:12 Lymph % (Auto) 15.0 % (20.0-40.0) L 06/29/17 06:12 [place] % (Auto) 8.0 % (0.0-10.0) 06/29/17 06:12 Eos % (Auto) 2.0 % (0.0-4.0) 06/29/17 06:12 Baso % (Auto) 0.0 % (0.0-2.0) 06/29/17 06:12 Neut # 2.3 K/uL (1.8-7.0) 06/29/17 06:12 Lymph # 0.2 K/uL (1.0-4.3) L 06/29/17 06:12 [place] # 0.2 K/uL (0.0-0.8) 06/29/17 06:12 Eos # 0.6 K/uL (0.0-0.7) 06/29/17 06:12 Baso # 0.0 K/uL (0.0-0.2) 06/29/17 06:12 Neutrophils % (Manual) 68 % (50-75) 06/26/17 13:21 Band Neutrophils % 3 % (0-2) H 06/26/17 13:21 Lymphocytes % (Manual) 14 % (20-40) L 06/26/17 13:21 Monocytes % (Manual) 12 % (0-10) H 06/26/17 13:21 Eosinophils % (Manual) 3 % (0-4) 06/26/17 13:21 Nucleated RBC % 1 % (0-0) H 06/26/17 13:21 Differential Comment Cancelled 07/01/17 07:21 Platelet Estimate Normal (NORMAL) 06/26/17 13:21 Hypochromasia (manual) Slight 06/26/17 13:21 Poikilocytosis (manual Slight 06/26/17 13:21 Anisocytosis (manual) Slight 06/26/17 13:21 Microcytosis (manual) Slight 06/26/17 13:21 Macrocytosis (manual) Slight 06/26/17 13:21 Ovalocytes Slight 06/26/17 13:21 PT 15.8 SECONDS (9.7-12.2) H 06/26/17 17:12 INR 1.4 06/26/17 17:12 APTT 38 SECONDS (21-34) H 06/26/17 17:12 Sodium 125 mmol/L (132-148) L 07/01/17 11:22 Potassium 4.1 mmol/L (3.6-5.2) 07/01/17 11:22 Chloride 89 mmol/L (98-107) L 07/01/17 11:22 Carbon Dioxide 32 mmol/L (22-30) H 07/01/17 11:22 Anion Gap 8 (10-20) L 07/01/17 11:22 BUN 16 mg/dL (7-17) 07/01/17 11:22 Creatinine 0.9 mg/dL (0.7-1.2) 07/01/17 11:22 Est GFR ( Amer) > 60 07/01/17 11:22 Est GFR (Non-Af Amer) > 60 07/01/17 11:22 POC Glucose (mg/dL) 130 mg/dL (65-110) H 07/01/17 11:23 Random Glucose 62 mg/dL (65-105) L 07/01/17 11:22 Serum Osmolality 270 mosm/kg (272-300) L 06/27/17 11:32 Uric Acid 7.0 mg/dL (2.2-7.5) 06/27/17 06:13 Calcium 7.7 mg/dl (8.6-10.4) L 07/01/17 11:22 Magnesium 1.5 mg/dL (1.6-2.3) L 07/01/17 11:22 Total Bilirubin 0.9 mg/dL (0.2-1.3) 06/28/17 07:01 AST 42 U/L (14-36) H 06/28/17 07:01 ALT 29 U/L (9-52) 06/28/17 07:01 Alkaline Phosphatase 139 U/L (38-126) H 06/28/17 07:01 Total Creatine Kinase 27 U/L (30-135) L 06/27/17 06:13 CK-MB (Mass) 0.49 ng/mL (0.0-3.38) 06/27/17 06:13 Troponin I 0.0330 ng/mL (0.00-0.120) 06/27/17 06:13 NT-Pro-B Natriuret Pep 91649 pg/mL (0-900) H 06/27/17 06:13 Total Protein 8.0 g/dL (6.3-8.3) 06/28/17 07:01 Albumin 3.0 g/dL (3.5-5.0) L 06/28/17 07:01 Globulin 5.0 gm/dL (2.2-3.9) H 06/28/17 07:01 Albumin/Globulin Ratio 0.6 (1.0-2.1) L 06/28/17 07:01 Triglycerides 74 mg/dL (0-149) 06/27/17 06:13 Cholesterol 135 mg/dL (0-199) 06/27/17 06:13 LDL Cholesterol Direct 105 mg/dL (0-129) 06/27/17 06:13 HDL Cholesterol 20 mg/dL (30-70) L 06/27/17 06:13 TSH 3rd Generation 4.75 mIU/L (0.46-4.68) H 06/27/17 06:13 Urine Color Janie (YELLOW) 07/01/17 13:05 Urine Clarity Hazy (Clear) 07/01/17 13:05 Urine pH 5.0 (5.0-8.0) 07/01/17 13:05 Ur Specific [place] 1.020 (1.003-1.030) 07/01/17 13:05 Urine Protein 1+ mg/dL (NEGATIVE) H 07/01/17 13:05 Urine Glucose (UA) Normal mg/dL (Normal) 07/01/17 13:05 Urine Ketones Negative mg/dL (NEGATIVE) 07/01/17 13:05 Urine Blood 2+ (NEGATIVE) H 07/01/17 13:05 Urine Nitrate Negative (NEGATIVE) 07/01/17 13:05 Urine Bilirubin Negative (NEGATIVE) 07/01/17 13:05 Urine Urobilinogen 2.0 mg/dL (0.2-1.0) H 07/01/17 13:05 Ur Leukocyte Esterase 1+ [place]/uL (Negative) H 07/01/17 13:05 Urine WBC (Auto) 22 /hpf (0-5) H 07/01/17 13:05 Urine RBC (Auto) 4 /hpf (0-3) H 07/01/17 13:05 Ur Squamous Epith Cells 2 /hpf (0-5) 07/01/17 13:05 Urine Bacteria Many (<OCC) H 07/01/17 13:05 Hyaline Casts 0-2 /lpf (0-2) 07/01/17 13:05 Urine Osmolality 539 mosm/kg (300-1000) 07/01/17 13:18 Ur Random Sodium 74 mmol/L 06/27/17 15:24 - Hospital Course Hospital Course: 72 year old female with PMHx of open heart surgery, arthritis, HTN, DM presents to the ED for evaluation of chest pain along with SOB that has been going on for the past 2-3 weeks. Patient reports she took aspirin last night for her CP but did not help and she was not able to sleep all night due to the pain. Patient looks pale and anemic but she denies any prior hx of anemia. Patient denies abdominal pain, diarrhea, blood in the stool, fever, chills, nausea, vomit, headache, weakness, numbness. IN ER TNI NEG BNP IS UP 2017 [place] CABG , [facility] [place] FIRST EPISODE OF ADMISSION H/O T2DM ON INSULIN , LV EF IS 35% PT. RESPONDED TO IV LASIX NA GOT LOW NEPH. CONSULTED ON FLUID RESTRICTION AND TOLVPTAN , NA NORMALISED TNI NEG ECHO EF 30% WITH MILD MR , [employer]IST PT STABLE FOR D/C CONT HOME MEDS PT HAS OWN PMD/CARD 07/02/2017 PT WAS KEPT ONE MORE DAY TO MONITOR NA PER NEPHROLOGY LAST NA 128 Discharge Exam - Head Exam Head Exam: ATRAUMATIC Discharge Plan - Follow Up Plan Condition: GUARDED Disposition: HOME/ ROUTINE
--- NOTE | 2017-07-01 15:06 | CP.PCM.PN ---
Subjective - Date & Time of Evaluation Date of Evaluation: 07/01/17 Time of Evaluation: 15:05 - Subjective Subjective: Follow up Nephrology Consultation: Assessment: Stable Hypervolemic Hyponatremia likely due to CHF. high urine Na and osmol suggest elevated ADH ? some contribution from her neuro-psych meds Hypokalemia, hypomagnesemia diabetes Mellitus, hypertension, CAD s/p CABG, chronic systolic CHF (FE 30-35%) , dementia Plan Hypertension control with meds as ordered. Patient on ACEI/ARB as Losartan Monitor Input/Output, daily weights and serum Na no need for hypertonic saline at this time. avoid correction in serum Na >6-8 meq/24 hrs CHF optimization continue with lasix. will also dose of tolvaptan today. monitor serum Na q 6 hr supplement electrolytes as needed. oral fluid restriction to 1000 mL/day dose of Mag given Glycemic control Further work up/management as per primary team Thanks for allowing me to participate in care of your patient. Will follow patient with you. Please call if any Qs. d/w team Dr Angel Benavidez Office: [phone] Chief Complaint; leg swelling Reason for consult: Hyponatremia HPI: Pt is a 72 F with hx of diabetes Mellitus (years), hypertension (years), CAD s/p CABG, chronic systolic CHF (FE 30-35%), dementia presented with complaints of chest pain and SOB. she is being managed for CHF exacerbation. renal consult for hyponatremia. her serum Na has been in 125-130s last year. pt not aware about electrolyte abnormality. Denies OTC/herbal meds or NSAIDs no thiazide diuretic. on SSRI. pt denies excess water intake hx of Etoh and smoking in past ROS: Cardiovascular: No chest pain now. Pulmonary: improved shortness of breath Gastrointestinal: denies abdominal pain No nausea. No vomiting. Genitourinary: No pain while urinating. Denies blood in urine. All other negative Physical Examination: General Appearance: Comfortable, in no acute respiratory distress, co-operative . Vitals reviewed and noted as below Head; Atraumatic, normocephalic ENT: no ulcers no thrush. Tongue is midline. Oropharynx: no rash or ulcers. EYES: Pupils are equal, round and reactive to light accommodation. Eye muscles and extraocular movement intact. Sclera is anicteric. Neck; supple no lymphadenopathy, no thyromegaly or bruit Lungs: Normal respiratory rate/effort. Breath sounds bilateral improved at bases although with bibasa; crackles Heart: Normal rate. s1s2 normal. No rub or gallop. Extremities: 1+ edema. No varicose veins Neurological: Patient is alert, awake. No focal deficit. Strength bilateral appropriate and equal Skin: Warm and dry. Normal turgor. No rash. Palpitation: Normal elasticity for age Abdomen: Abdomen is soft. Bowel sounds +. There is no abdominal tenderness, no guarding/rigidity no organomegaly Psych: normal insight and normal affect/mood MSK: no joint tenderness or swelling. Digits and nails normal, no deformity : kidney or bladder not palpable Labs/imaging reviewed. Past medical history, past surgical history, family history, social history, allergy reviewed and noted as below Family hx: no hx of CKD. Rest non-contributory Objective - Vital Signs/Intake and Output Vital Signs (last 24 hours): Temp Pulse Resp BP Pulse Ox 98.0 F 61 20 120/70 97 07/01/17 10:03 07/01/17 10:03 07/01/17 10:03 07/01/17 11:04 07/01/17 10:03 Intake and Output: 07/01/17 07/01/17 06:59 18:59 Intake Total 390 Balance 390 - Medications Medications: Current Medications Aspirin (Ecotrin) 81 mg PO DAILY [facility] Last Admin: 07/01/17 11:03 Dose: 81 mg Enoxaparin Sodium (Lovenox) 40 mg SC DAILY [facility] Last Admin: 07/01/17 11:04 Dose: 40 mg Escitalopram Oxalate (Lexapro) 20 mg PO DAILY [facility] Last Admin: 07/01/17 11:00 Dose: 20 mg Furosemide (Lasix) 40 mg IVP DAILY [facility] Last Admin: 07/01/17 11:04 Dose: 40 mg Insulin Human Regular (Novolin R) 0 unit SC ACHS [facility] PRN Reason: Protocol Last Admin: 07/01/17 07:58 Dose: Not Given Losartan Potassium (Cozaar) 25 mg PO DAILY [facility] Last Admin: 06/30/17 09:30 Dose: 25 mg Magnesium Oxide (Mag-Ox) 800 mg PO BID [facility] Metformin HCl (Glucophage) 1,000 mg PO DAILY [facility] Last Admin: 07/01/17 11:03 Dose: 1,000 mg Metoprolol Tartrate (Lopressor) 50 mg PO BID [facility] Last Admin: 07/01/17 11:03 Dose: 50 mg Pantoprazole Sodium (Protonix Ec Tab) 40 mg PO DAILY [facility] Last Admin: 07/01/17 11:03 Dose: 40 mg Rosuvastatin Calcium (Crestor) 2.5 mg PO HS [facility] Last Admin: 06/30/17 21:28 Dose: 2.5 mg Sitagliptin Phosphate (Januvia) 50 mg PO DAILY [facility] Last Admin: 07/01/17 11:03 Dose: 50 mg Tramadol HCl (Ultram) 50 mg PO Q8 PRN PRN Reason: Pain, moderate (4-7) Last Admin: 07/01/17 13:25 Dose: 50 mg Zolpidem Tartrate (Ambien) 5 mg PO HS [facility] Last Admin: 06/30/17 21:28 Dose: 5 mg - Labs Labs: 07/01/17 07:21 07/01/17 11:22 PT 15.8 SECONDS (9.7-12.2) H 06/26/17 17:12 INR 1.4 06/26/17 17:12 APTT 38 SECONDS (21-34) H 06/26/17 17:12
[2017-07-01] MEDS: Rosuvastatin Calcium 2.5 mg Tab PO SCH (22:58)
[2017-07-02 06:58] LABS: BLOOD UREA NITROGEN 19 mg/dL (7-17); GFR AFRICAN-AMERICAN > 60; GFR NON-AFRICAN AMERICAN > 60
[2017-07-02] MEDS: (Novolin R) Insulin Human Regular 100 units/ml vial SC SCH ×2 (07:45→12:30)
[2017-07-02 08:10] VITALS: PULSE 60; TEMP 98.6; O2SAT 97
[2017-07-02] MEDS: Magnesium Oxide 400 mg Tab UD PO SCH (10:09)
[2017-07-02] MEDS: Pantoprazole 40 mg EC Tab PO SCH (10:10)
[2017-07-02] MEDS: Enoxaparin 40 mg Syringe SC SCH (10:11)
[2017-07-02 10:15] VITALS: BP 110/70
--- NOTE | 2017-07-02 19:29 | CP.PCM.PN ---
Subjective - Date & Time of Evaluation Date of Evaluation: 07/02/17 Time of Evaluation: 11:00 - Subjective Subjective: Follow up Nephrology Consultation: Assessment: Stable Hypervolemic Hyponatremia likely due to CHF. high urine Na and osmol suggest elevated ADH ? some contribution from her neuro-psych meds Hypokalemia, hypomagnesemia diabetes Mellitus, hypertension, CAD s/p CABG, chronic systolic CHF (FE 30-35%) , dementia Plan Hypertension control with meds as ordered. Patient on ACEI/ARB as Losartan Monitor Input/Output, daily weights and serum Na no need for hypertonic saline at this time. avoid correction in serum Na >6-8 meq/24 hrs CHF optimization continue with lasix. supplement electrolytes as needed. oral fluid restriction to 1000 mL/day dose of Mag given Glycemic control Further work up/management as per primary team Thanks for allowing me to participate in care of your patient. pt planned for d/ c home. stable from renal perspective Please call if any Qs. d/w team. f/up in office 1-[address] Angel Benavidez Office: [phone] Chief Complaint; leg swelling Reason for consult: Hyponatremia HPI: Pt is a 72 F with hx of diabetes Mellitus (years), hypertension (years), CAD s/p CABG, chronic systolic CHF (FE 30-35%), dementia presented with complaints of chest pain and SOB. she is being managed for CHF exacerbation. renal consult for hyponatremia. her serum Na has been in 125-130s last year. pt not aware about electrolyte abnormality. Denies OTC/herbal meds or NSAIDs no thiazide diuretic. on SSRI. pt denies excess water intake hx of Etoh and smoking in past ROS: Cardiovascular: No chest pain now. Pulmonary: improved shortness of breath Gastrointestinal: denies abdominal pain No nausea. No vomiting. Genitourinary: No pain while urinating. Denies blood in urine. All other negative Physical Examination: General Appearance: Comfortable, in no acute respiratory distress, co-operative . Vitals reviewed and noted as below Head; Atraumatic, normocephalic ENT: no ulcers no thrush. Tongue is midline. Oropharynx: no rash or ulcers. EYES: Pupils are equal, round and reactive to light accommodation. Eye muscles and extraocular movement intact. Sclera is anicteric. Neck; supple no lymphadenopathy, no thyromegaly or bruit Lungs: Normal respiratory rate/effort. Breath sounds bilateral clear Heart: Normal rate. s1s2 normal. No rub or gallop. Extremities: 1+ edema. No varicose veins Neurological: Patient is alert, awake. No focal deficit. Strength bilateral appropriate and equal Skin: Warm and dry. Normal turgor. No rash. Palpitation: Normal elasticity for age Abdomen: Abdomen is soft. Bowel sounds +. There is no abdominal tenderness, no guarding/rigidity no organomegaly Psych: normal insight and normal affect/mood MSK: no joint tenderness or swelling. Digits and nails normal, no deformity : kidney or bladder not palpable Labs/imaging reviewed. Past medical history, past surgical history, family history, social history, allergy reviewed and noted as below Family hx: no hx of CKD. Rest non-contributory Objective - Vital Signs/Intake and Output Vital Signs (last 24 hours): Temp Pulse Resp BP Pulse Ox 98.6 F 60 20 110/70 97 07/02/17 08:09 07/02/17 08:09 07/02/17 08:09 07/02/17 10:13 07/02/17 08:09 - Labs Labs: 07/01/17 07:21 07/02/17 06:32 PT 15.8 SECONDS (9.7-12.2) H 06/26/17 17:12 INR 1.4 06/26/17 17:12 APTT 38 SECONDS (21-34) H 06/26/17 17:12
--- NOTE | 2017-07-03 08:05 | CP.PCM.PN ---
Subjective - Date & Time of Evaluation Date of Evaluation: 07/02/17 Time of Evaluation: 10:50 - Subjective Subjective: Patient seen today, awake, alert, denies any chest pain, sob, abdominal pain, dizziness , N/V/D , NA - improved - 128>124>123 No overnight events reported by RN Objective - Vital Signs/Intake and Output Vital Signs (last 24 hours): Temp Pulse Resp BP Pulse Ox 98.6 F 60 20 110/70 97 07/02/17 08:09 07/02/17 08:09 07/02/17 08:09 07/02/17 10:13 07/02/17 08:09 - Labs Labs: 07/01/17 07:21 07/02/17 06:32 PT 15.8 SECONDS (9.7-12.2) H 06/26/17 17:12 INR 1.4 06/26/17 17:12 APTT 38 SECONDS (21-34) H 06/26/17 17:12 - Constitutional Appears: Well, No Acute Distress - Respiratory Exam Respiratory Exam: Clear to Ausculation Bilateral, NORMAL BREATHING PATTERN - Cardiovascular Exam Cardiovascular Exam: REGULAR RHYTHM, +S1, +S2 - Neurological Exam Neurological Exam: Alert, Awake, Oriented x3 Assessment and Plan - Assessment and Plan (Free Text) Assessment: A/P 72 yr old female with hx of HTN, DM admitted for chest pain and SOB/ hyponatremia troponi x 3- negative Dr. Benavidez consulted for hyonatremia an d pt received samsca and NA improved D/W DR. Benavidez , stable from nephrology standpoint for discharge home and continue magnesium oxide and lasix and fluid restriction D/W Dr. Sood stable for discharge home today and f/u with PMD in 1 weeks Discharge plan discussed with patient via mastic worker , who understands and agrees with plan Patient instructed to returns to ED if symptoms returns
== END 2017-07-02 14:16 | disposition home or self-care (01) | DRG 303 ==
LOC: C.ER 12:32 → C.9E 14:48 → C.6T 19:00
PROVIDERS: ADMIT Internal Medicine Cardiovascular Disease; ATTEND Internal Medicine Cardiovascular Disease
DX: I25.110 Atherosclerotic heart disease of native coronary artery with unstable angina pectoris (principal); I11.0 Hypertensive heart disease with heart failure; I50.22 Chronic systolic (congestive) heart failure; E87.1 Hypo-osmolality and hyponatremia; I48.91 Unspecified atrial fibrillation; I24.9 Acute ischemic heart disease, unspecified; E83.42 Hypomagnesemia; E11.9 Type 2 diabetes mellitus without complications; J44.9 Chronic obstructive pulmonary disease, unspecified; M81.0 Age-related osteoporosis without current pathological fracture; E87.6 Hypokalemia; E78.00 Pure hypercholesterolemia, unspecified; M06.9 Rheumatoid arthritis, unspecified; D64.9 Anemia, unspecified; F03.90 Unspecified dementia, unspecified severity, without behavioral disturbance, psychotic disturbance, mood disturbance, and anxiety; Z95.1 Presence of aortocoronary bypass graft; Z79.4 Long term (current) use of insulin; Z87.891 Personal history of nicotine dependence; Z90.49 Acquired absence of other specified parts of digestive tract; Z95.5 Presence of coronary angioplasty implant and graft

== ENCOUNTER 2017-07-12 17:49 | Inpatient (IN) | payer MEDICARE, MEDICAID ==
[2017-07-12 17:49] VITALS: BMI 23.3
--- NOTE | 2017-07-12 18:39 | C.PDOC ---
History Of Present Illness 72 yr old female with PMHx of CHF, presents to the ER with complaints of left leg pain and swelling, worsening for the past few days. also reports dyspnea and "fluid in the lungs" Patient was recently admitted fro CHF. Denies fever, chest pain, SOB, nausea, vomiting, abdominal pain, weakness or numbness. no known trauma Time Seen by Provider: 07/12/17 18:35 Chief Complaint (Nursing): Lower Extremity Problem/Injury History Per: Patient History/Exam Limitations: no limitations Onset/Duration Of Symptoms: Days (worsening for the past few days) Past Medical History Reviewed: Historical Data, Nursing Documentation, Vital Signs Vital Signs: Last Vital Signs Temp 98.7 F 07/15/17 07:00 Pulse 64 07/15/17 07:00 Resp 18 07/15/17 07:00 BP 131/77 07/15/17 07:00 Pulse Ox 100 07/15/17 07:00 - Medical History PMH: Anemia, Arthritis, Atrial Fibrillation, CAD, Cardia Arrhythmia, CHF, COPD, Dementia, Diabetes, HTN, Hypercholesterolemia, Osteoporosis, Rheumatoid Arthritis Surgical History: Appendectomy, CABG, Coronary Stent - [facility] Procedures ASSISTANCE WITH RESPIRATORY VENTILATION, <24 HRS, CPAP (03/24/15) CORONAR ARTERIOGR-2 CATH (04/29/13) ESOPHAGOGASTRODUODENOSCOPY [EGD] W/CLOSED BIOPSY (11/01/14) EXCISION OF SMALL INTESTINE, ENDO, DIAGN (05/20/15) FLUOROSCOPY OF LEFT HEART USING LOW OSMOLAR CONTRAST (06/25/16) FLUOROSCOPY OF MULT COR A GRAFT USING L OSM CONTRAST (06/25/16) FLUOROSCOPY OF MULT COR ART USING L OSM CONTRAST (06/25/16) LEFT HEART CARDIAC CATH (04/29/13) LT HEART ANGIOCARDIOGRAM (04/29/13) MEASURE OF CARDIAC SAMPL & PRESSURE, L HEART, PERC APPROACH (06/25/16) PACKED CELL TRANSFUSION (11/01/14) PERCUTANEOUS TRANSLUMINAL CORONARY ANGIOPLASTY [PTCA] (04/29/13) PLAIN RADIOGRAPHY OF LEFT HEART USING OTHER CONTRAST (03/24/15) PLAIN RADIOGRAPHY OF MULT COR ART USING OTH CONTRAST (03/24/15) PROCEDURE ON SINGLE VESSEL (04/29/13) TRANSFUSE NONAUT RED BLOOD CELLS IN PERIPH VEIN, PERC (12/04/15) Family History: States: No Known Family Hx - Social History Hx Tobacco Use: Yes Hx Alcohol Use: No Hx Substance Use: No - Immunization History Hx Tetanus Toxoid Vaccination: No Hx Influenza Vaccination: No Hx Pneumococcal Vaccination: No Review Of Systems Except As Marked, All Systems Reviewed And Found Negative. Constitutional: Negative for: Fever Cardiovascular: Negative for: Chest Pain Respiratory: Positive for: Other ((+) dyspnea on exertion). Negative for: Shortness of Breath Gastrointestinal: Negative for: Nausea, Vomiting, Abdominal Pain Musculoskeletal: Positive for: Leg Pain (left leg), Other ((+) left leg swelling ) Neurological: Negative for: Weakness, Numbness Physical Exam - Physical Exam Appears: Non-toxic, No Acute Distress Skin: Warm, Dry, No Rash Oral Mucosa: Moist Throat: Normal, No Erythema, No Exudate, No Drooling Neck: Normal, Normal ROM, Supple Cardiovascular: Rhythm Regular, No Murmur Respiratory: Rales (at the bases), No Stridor, No Wheezing Gastrointestinal/Abdominal: Normal Exam, Soft, No Tenderness, No Guarding, No Rebound Extremity: Normal ROM, Swelling (left leg), Other ((+)pulses present) Neurological/Psych: Oriented x3, Normal Speech, Normal Motor ED Course And Treatment - Laboratory Results Result Diagrams: 07/15/17 07:34 07/12/17 19:18 ECG: Interpreted By Me, Viewed By Ms ECG Rhythm: Sinus Rhythm Interpretation Of ECG: LVH Rate From EC (BPM) O2 Sat by Pulse Oximetry: 99 (RA) Pulse Ox Interpretation: Normal - CT Scan/US CTA Chest Other Rad Studies (CT/US): Interpreted By Me, Read By Radiologist CT/US Interpretation: EXAM: CT Angiography Chest With Intravenous Contrast. EXAM DATE/TIME: 07/12/2017 8:36 PM. CLINICAL HISTORY: 72 years old, female; Signs and symptoms; Shortness of breath; Additional info: SOB elevated dimer. TECHNIQUE: Axial computed tomographic angiography images of the chest with intravenous contrast using. pulmonary embolism protocol. All CT scans at this facility use one or more dose reduction. techniques, viz.: automated exposure control; ma/kV adjustment per patient size (including targeted. exams where dose is matched to indication; i.e. head); or iterative reconstruction technique. MIP reconstructed images were created and reviewed. Coronal and sagittal reformatted images were created and reviewed. CONTRAST: 100 mL of VISIPAQUE 320 administered intravenously. COMPARISON: CR - CHEST ONE VIEW 2014 16:42. FINDINGS: Heart, aorta and Pulmonary arteries: The heart is enlarged. There are coronary artery calcifications. There is prosthetic mitral valve. Ascending aorta is dilated, 4.2 cm in maximal diameter. There is. tapering at the arch.There are vascular calcifications.Distal thoracic aorta is mildly ectatic. There is. reflux of contrast into the inferior vena cava and hepatic veins Main pulmonary artery is mildly dilated. 3.5 cm in diameter. There is prominence of the left and right pulmonary arteries.There are no. pulmonary emboli. Lungs and pleural spaces: Trachea and main bronchi are patent. There is a moderately large right. pleural effusion. The there is a small left pleural effusion. There is partial atelectasis of both lower. lobes. There is compressive atelectasis in the right upper lobe. There is asymmetric groundglass. opacities in the aerated lung zones bilaterally. Mediastinum: The esophagus is unremarkable. There are mildly prominent mediastinal nodes. There are no pathologically enlarged hilar nodes. Thyroid: Thyroid is not optimally demonstrated. Bones/joints: There are postsurgical changes of median sternotomy. There is mild compression. deformity at T11. Soft tissues: unremarkable. Upper abdomen: There are no acute abnormalities in the visualized portion of the abdomen.There. are degenerative changes in the osseus structures. IMPRESSION: Cardiomegaly atherosclerotic disease, 4.2 cm ascending aortic aneurysm; prior. median sternotomy and mitral valve replacement; dilated main pulmonary artery and reflux into the. inferior vena cava suggests pulmonary hypertension, no pulmonary emboli; moderately large right. pleural effusion and small left effusion; atelectatic changes greatest at the lung bases right greater. than left; bilateral asymmetric groundglass opacities atelectasis versus infiltrate Medical Decision Making Medical Decision Making: ro dvt chf, PLAN: * X-Ray - Left Leg, Left Hip w/ Pelvis * CXR * EKG * Troponin * D-Dimer * CBC * CMP * BNP pt seen by dr jordan bedside accepts for admission. request dr bang consult. lasix dosed. pain med dosed. lovenox ordered until am dvt study. Disposition - Disposition Disposition: HOSPITALIZED Disposition Time: 22:58 Condition: GUARDED - Clinical Impression Clinical Impression: CHF (congestive heart failure), Leg pain, Elevated d-dimer - Scribe Statement The provider has reviewed the documentation as recorded by the Ginetteibe Sara Ramirez Decision To Admit - Pt Status Changed To: Hospital Disposition Of: Inpatient - Admit Certification Admit to Inpatient:: After my assessment, the patient will require hospitalization for at least two midnights. This is because of the severity of symptoms shown, intensity of services needed, and/or the medical risk in this patient being treated as an outpatient. - InPatient: Physician Admission Certification: I certify that this patient requires 2 or more midnights of care for the following reason:: needs iv diuresisi - . Bed Request Type: Telemetry Admitting Physician: Kallie Jordan Patient Diagnosis: CHF (congestive heart failure), Leg pain, Elevated d-dimer
[2017-07-12 19:22] LABS: BASO # 0.1 K/uL (0.0-0.2); BASO % 1.1 % (0.0-2.0); EOS % 0.8 % (0.0-4.0); HEMOGLOBIN 9.8 g/dL (11.0-16.0); LYMPH # 0.4 K/uL (1.0-4.3); LYMPH % 7.6 % (20.0-40.0); MEAN CELL VOLUME 87.4 fL (81.0-99.0); MEAN CORPUSCULAR HEMOGLOBIN 29.6 pg (27.0-31.0); MEAN CORPUSCULAR HGB CONC 33.9 g/dL (33.0-37.0); MEAN PLATELET VOLUME 8.8 fL (7.2-11.7); MONO # 0.4 K/uL (0.0-0.8); MONO % 7.6 % (0.0-10.0); NEUT # 4.6 K/uL (1.8-7.0); NEUT % 82.9 % (50.0-75.0); NRBC % 0.1 % (0.0-2.0); PLATELET COUNT 252 K/uL (130-400); RED CELL DISTRIBUTION WIDTH 17.1 % (11.5-14.5); WHITE BLOOD COUNT 5.6 K/uL (4.8-10.8)
[2017-07-12 19:32] LABS: INR 1.3; PARTIAL THROMBOPLASTIN TIME 41 SECONDS (21-34); PROTHROMBIN TIME 14.2 SECONDS (9.7-12.2)
[2017-07-12 19:39] LABS: ALB/GLOB RATIO 0.6 (1.0-2.1); ALBUMIN 2.8 g/dL (3.5-5.0); ALT/SGPT 23 U/L (9-52); AST/SGOT 34 U/L (14-36); BLOOD UREA NITROGEN 27 mg/dL (7-17); CALCIUM 8.3 mg/dl (8.6-10.4); GFR AFRICAN-AMERICAN > 60; GFR NON-AFRICAN AMERICAN > 60
[2017-07-12 20:08] LABS: B-TYPE NATRIURETIC PEPTIDE 48500 pg/mL (0-900)
[2017-07-12 20:31] LABS: D DIMER > 5250 ng/mlDDU (0-243)
[2017-07-12 20:57] LABS: ANISOCYTOSIS SLIGHT; EOSINOPHIL 2 % (0-4); LYMPHOCYTE 8 % (20-40); MONOCYTE 10 % (0-10); NEUTROPHIL 80 % (50-75); TOTAL CELLS COUNTED 100
[2017-07-12 20:58] LABS: PLATELET ESTIMATE NORMAL (NORMAL)
[2017-07-12] MEDS ORDERED: Iodixanol 320 MG/ML 100 ML BOTTLE IV ONE (21:08)
[2017-07-12] MEDS ORDERED: Morphine 4 MG/ML VIAL ONE (22:21)
--- NOTE | 2017-07-12 22:49 | CT ---
EXAM: CT Angiography Chest With Intravenous Contrast EXAM DATE/TIME: 07/12/2017 8:36 PM CLINICAL HISTORY: 72 years old, female; Signs and symptoms; Shortness of breath; Additional info: SOB elevated dimer TECHNIQUE: Axial computed tomographic angiography images of the chest with intravenous contrast using pulmonary embolism protocol. All CT scans at this facility use one or more dose reduction techniques, viz.: automated exposure control; ma/kV adjustment per patient size (including targeted exams where dose is matched to indication; i.e. head); or iterative reconstruction technique. MIP reconstructed images were created and reviewed. Coronal and sagittal reformatted images were created and reviewed. CONTRAST: 100 mL of VISIPAQUE 320 administered intravenously. COMPARISON: CR - CHEST ONE VIEW 2015-05-20 16:42 FINDINGS: Heart, aorta and Pulmonary arteries: The heart is enlarged. There are coronary artery calcifications. There is prosthetic mitral valve. Ascending aorta is dilated, 4.2 cm in maximal diameter. There is tapering at the arch.There are vascular calcifications.Distal thoracic aorta is mildly ectatic. There is reflux of contrast into the inferior vena cava and hepatic veins Main pulmonary artery is mildly dilated 3.5 cm in diameter. There is prominence of the left and right pulmonary arteries.There are no pulmonary emboli. Lungs and pleural spaces: Trachea and main bronchi are patent. There is a moderately large right pleural effusion. The there is a small left pleural effusion. There is partial atelectasis of both lower lobes. There is compressive atelectasis in the right upper lobe. There is asymmetric groundglass opacities in the aerated lung zones bilaterally. Mediastinum: The esophagus is unremarkable. There are mildly prominent mediastinal nodes. There are no pathologically enlarged hilar nodes. Thyroid: Thyroid is not optimally demonstrated. Bones/joints: There are postsurgical changes of median sternotomy. There is mild compression deformity at T11 Soft tissues: unremarkable Upper abdomen: There are no acute abnormalities in the visualized portion of the abdomen.There are degenerative changes in the osseus structures. IMPRESSION: Cardiomegaly atherosclerotic disease, 4.2 cm ascending aortic aneurysm; prior median sternotomy and mitral valve replacement; dilated main pulmonary artery and reflux into the inferior vena cava suggests pulmonary hypertension, no pulmonary emboli; moderately large right pleural effusion and small left effusion; atelectatic changes greatest at the lung bases right greater than left; bilateral asymmetric groundglass opacities atelectasis versus infiltrate
[2017-07-12] MEDS ORDERED: Enoxaparin 150 mg Syringe SC STA (22:51)
--- NOTE | 2017-07-13 06:37 | RAD ---
Chest x-ray single frontal view History: Chest pain. Comparison: 06/26/2017 Findings: Prominent diffuse increased interstitial lung markings. Biapical pleural thickening with upper lobe granulomatous changes. Bibasilar airspace opacities. Enlarged ectatic aorta. Suggestion of possible hiatal hernia. Clinical correlation. Correlation with lateral view and or upper GI series may be helpful if clinically indicated. Cardiomegaly. Status post median sternotomy CABG. Impression: Prominent diffuse increased interstitial lung markings. Biapical pleural thickening with upper lobe granulomatous changes. Bibasilar airspace opacities. Enlarged ectatic aorta. Suggestion of possible hiatal hernia. Clinical correlation. Correlation with lateral view and or upper GI series may be helpful if clinically indicated. Cardiomegaly.
--- NOTE | 2017-07-13 07:08 | RAD ---
Left hip two views History: Hip pain. Comparison: None available. Findings: Left hip: Moderate narrowing of the left hip joint space with subchondral sclerosis. No evidence of acute displaced fracture or dislocation of the left hip. Evaluation of the remainder of the bony pelvis demonstrates some productive change and or mild cortical irregularity at the superior aspect of the pubic symphysis which may represent an osteitis pubis. Clinical correlation. Severe degenerative changes of the right hip joint space with joint space narrowing and subchondral sclerosis. Prominent degenerative changes in the lower lumbar spine. Sacrum is obscured by overlying bowel gas. Vascular calcifications noted. Impression: Moderate narrowing of the left hip joint space with subchondral sclerosis. Evaluation of the remainder of the bony pelvis demonstrates some productive change and or mild cortical irregularity at the superior aspect of the pubic symphysis which may represent an osteitis pubis. Clinical correlation. Severe degenerative changes of the right hip joint space with joint space narrowing and subchondral sclerosis. Prominent degenerative changes in the lower lumbar spine. If pain persists, consider MRI.
--- NOTE | 2017-07-13 07:13 | RAD ---
Left knee three views History: Pain. Comparison: None available. Findings: Large left knee joint effusion. Moderate narrowing of the medial compartment of the femorotibial joint space. Mild narrowing of the patellofemoral compartment. Vascular calcifications. Surgical clips noted. Curvilinear sclerosis seen in the medial proximal tibia extending to the midline. This is of uncertain clinical etiology; however, osseous injury cannot entirely be excluded on the basis of these images. Soft tissue swelling seen within the medial soft tissues. Impression: Large left knee joint effusion. Curvilinear sclerosis seen in the medial proximal tibia extending to the midline. This is of uncertain clinical etiology; however, osseous injury cannot entirely be excluded on the basis of these images. If pain persists, correlation with MRI may be helpful. Moderate narrowing of the medial compartment of the femorotibial joint space. Mild narrowing of the patellofemoral compartment. Vascular calcifications. Surgical clips noted. Soft tissue swelling seen within the medial soft tissues.
[2017-07-13] MEDS: (Novolog) Insulin Aspart, Recombinant 100 u/ml 10 ml vial SC SCH ×4 (07:48→22:52)
--- NOTE | 2017-07-13 09:34 | CP.PCM.PCO ---
Physician Communication Note - Physician Communication Note Physician Communication Note: Consultation changed to Software Engineering Supervisor!
[2017-07-13] MEDS ORDERED: Home Med 1 UNIT (Sitagliptin Phos/Metformin Hcl [Janumet 50-1,000 Mg Tablet] 1 EACH) PO SCH (10:00)
[2017-07-13] MEDS ORDERED: Home Med 1 UNIT (Potassium Chloride [Potassium Chloride] 20 MEQ) PO SCH (10:00)
[2017-07-13] MEDS ORDERED: MEMANTINE HCL 28 MG PO SCH (10:00)
[2017-07-13] MEDS ORDERED: ETANERCEPT 50 MG SC SCH (10:00)
[2017-07-13] MEDS ORDERED: Home Med 1 UNIT (Simvastatin [Simvastatin] 10 MG) PO SCH (10:00)
[2017-07-13] MEDS ORDERED: Home Med 1 UNIT (Omeprazole [Omeprazole] 40 MG) PO SCH (10:00)
[2017-07-13] MEDS: Nitroglycerin 0.2 mg/hr Top Patch TD SCH (10:04)
[2017-07-13] MEDS: Enoxaparin 60 mg Syringe SC SCH (12:30)
--- NOTE | 2017-07-13 13:31 | CP.PCM.CON ---
History of Present Illness - History of Present Illness History of Present Illness: I was asked to evaluate patient for mgmt of CHF. Patient has a history of ischemic cardiomyopathy s/p CABG MVR who presents with dyspnea. The patient states symptoms occurred at rest. She has lower extremity edema. She denies active chest pain. Review of Systems - Constitutional Constitutional: absent: As Per HPI, Anorexia, Chills, Daytime Sleepiness, Excessive Sweating, Fatigue, Fever, Frequent Falls, Headache, Increased Appetite , Lethargy, Malaise, Night Sweats, Snoring, Sleep Apnea, Weight Gain, Weight Loss, Weakness, Other - EENT Eyes: absent: As Per HPI, Blind Spots, Blurred Vision, Change in Vision, Decreased Night Vision, Diplopia, Discharge, Dry Eye, Exophthalmos, Floaters, Irritation, Itchy Eyes, Loss of Peripheral Vision, Pain, Photophobia, Requires Corrective Lenses, Sees Flashes, Spots in Vision, Tunnel Vision, Other Visual Disturbances, Loss of Vision, Other Ears: absent: As Per HPI, Decreased Hearing, Ear Discharge, Ear Pain, Tinnitus, Abnormal Hearing, Disequilibrium, Dizziness, Other Nose/Mouth/Throat: absent: As Per HPI, Epistaxis, Nasal Congestion, Nasal Discharge, Nasal Obstruction, Nasal Trauma, Nose Pain, Post Nasal Drip, Sinus Pain, Sinus Pressure, Bleeding Gums, Change in Voice, Dental Pain, Dry Mouth, Dysphagia, Halitosis, Hoarsness, Lip Swelling, Mouth Lesions, Mouth Pain, Odynophagia, Sore Throat, Throat Swelling, Tongue Swelling, Facial Pain, Neck Pain, Neck Mass, Other - Breasts Breasts: absent: As Per HPI, Change in Shape, Mass, Pain, Nipple Discharge, Nipple Inversion, Skin Changes, Swelling, Other - Cardiovascular Cardiovascular: Dyspnea, Leg Edema - Respiratory Respiratory: Dyspnea - Gastrointestinal Gastrointestinal: absent: As Per HPI, Abdominal Pain, Belching, Bloating, Change in Bowel Habits, Change in Stool Character, Coffee Ground Emesis, Constipation, Cramping, Diarrhea, Dyspepsia, Dysphagia, Early Satiety, Excessive Flatus, Fecal Incontinence, Heartburn, Hematemesis, Hematochezia, Loose Stools, Melena, Nausea, Odynophagia, Temesmus, Vomiting, Other - Genitourinary Genitourinary: absent: As Per HPI, Change in Urinary Stream, Difficulty Urinating, Dysuria, Flank Pain, Hematuria, Pyuria, Nocturia, Urinary Incontinence, Urinary Frequency, Urinary Hesitance, Urinary Urgency, Voiding Freq/Small Amts, Freq UTI, Hx Renal/Bladder Calculi, Hx /Renal Surgery, Bladder Distension, Other - Musculoskeletal Musculoskeletal: absent: As Per HPI, Abnormal Gait, Arthralgias, Atrophy, Back Pain, Deformity, Joint Swelling, Limited Range of Motion, Loss of Height, Muscle Cramps, Muscle Weakness, Myalgias, Neck Pain, Numbness, Radiating Pain into Limb, Stiffness, Tingling, Other - Integumentary Integumentary: absent: As Per HPI, Acne, Alopecia, Bleeding Lesions, Change in Hair, Change in Nails, Change in Pigmentation, Changing Lesions, Dry Skin, Erythema, Furuncle, Hirsutism, Lesions, New Lesions, Non-Healing Lesions, Photosensitivity, Pruritus, Rash, Skin Pain, Skin Ulcer, Sores, Striae, Swelling , Unusual Bruising, Wounds, Jaundice, Other - Neurological Neurological: absent: As Per HPI, Abnormal Gait, Abnormal Hearing, Abnormal Movements, Abnormal Speech, Behavioral Changes, Burning Sensations, Confusion, Convulsions, Disequilibrium, Dizziness, Numbness, Focal Weakness, Frequent Falls , Headaches, Lack of Coordination, Loss of Vision, Memory Loss, Paresthesias, Radicular Pain, Restless Legs, Sensory Deficit, Syncope, Tingling, Tremor, Vertigo, Weakness, Other Visual Disturbances, Other - Psychiatric Psychiatric: absent: As Per HPI, Abnormal Sleep Pattern, Anhedonia, Anxiety, Auditory Hallucinations, Behavioral Changes, Change in Appetite, Change in Libido, Confusion, Depression, Difficulty Concentrating, Hallucinations, Homicidal Ideation, Hopelessness, Irritability, Memory Loss, Mood Swings, Panic Attacks, Paranoia, Suicidal Ideation, Visual Hallucinations, Tactile Hallucinations, Other - Endocrine Endocrine: absent: As Per HPI, Change in Body Appearance, Change in Libido, Cold Intolorance, Deepening of Voice, Excessive Sweating, Fatigue, Flushing, Heat Intolorance, Increase in Ring/Shoe/Hat Size, Palpitations, Polydipsia, Polyphagia, Polyuria, Other - Hematologic/Lymphatic Hematologic: absent: As Per HPI, Easy Bleeding, Easy Bruising, Lymphadenopathy, Other Past Patient History - Infectious Disease Hx of Infectious Diseases: None - Past Medical History & Family History Past Medical History?: Yes - Past Social History Smoking Status: Former Smoker - CARDIAC Hx Atrial Fibrillation: Yes Hx Cardia Arrhythmia: Yes Hx Congestive Heart Failure: Yes Hx Hypercholesterolemia: Yes Hx Hypertension: Yes - PULMONARY Hx Chronic Obstructive Pulmonary Disease (COPD): Yes - NEUROLOGICAL Hx Dementia: Yes - HEENT Hx HEENT Problems: No - RENAL Hx Chronic Kidney Disease: No - ENDOCRINE/METABOLIC Hx Endocrine Disorders: Yes Hx Diabetes Mellitus Type 2: Yes - HEMATOLOGICAL/ONCOLOGICAL Hx Anemia: Yes - INTEGUMENTARY Hx Dermatological Problems: No - MUSCULOSKELETAL/RHEUMATOLOGICAL Hx Arthritis: Yes Hx Osteoporosis: Yes Hx Rheumatoid Arthritis: Yes - GASTROINTESTINAL Hx Gastrointestinal Disorders: Yes Hx Ulcer: Yes Other/Comment: appendectomy history of endoscopies. ventral hernia - GENITOURINARY/GYNECOLOGICAL Hx Sexually Transmitted Disorders: No - PSYCHIATRIC Hx Substance Use: No - SURGICAL HISTORY Hx Appendectomy: Yes Hx Coronary Artery Bypass Graft: Yes Hx Coronary Stent: Yes - ANESTHESIA Hx Anesthesia: Yes Hx Anesthesia Reactions: No Hx Malignant Hyperthermia: No Meds Allergies/Adverse Reactions: Allergies Allergy/AdvReac Type Severity Reaction Status Date / Time No Known Allergies Allergy Verified 07/12/17 18:07 - Medications Medications: Current Medications Enoxaparin Sodium (Lovenox) 69 mg SC DAILY [facility] Escitalopram Oxalate (Lexapro) 20 mg PO DAILY [facility] Last Admin: 07/13/17 10:03 Dose: 20 mg Furosemide (Lasix) 40 mg IVP DAILY [facility] Last Admin: 07/13/17 10:14 Dose: 40 mg Home Med (Etanercept [Enbrel]) 50 mg SC QWK [facility] Last Admin: 07/13/17 10:42 Dose: Not Given Home Med (Memantine Hcl [Namenda Xr]) 28 mg PO DAILY [facility] Last Admin: 07/13/17 10:42 Dose: Not Given Home Med (Omeprazole [Omeprazole]) 40 mg PO DAILY [facility] Last Admin: 07/13/17 10:42 Dose: Not Given Home Med (Potassium Chloride [Potassium Chloride]) 20 meq PO DAILY [facility] Last Admin: 07/13/17 10:41 Dose: Not Given Home Med (Simvastatin [Simvastatin]) 10 mg PO DAILY [facility] Last Admin: 07/13/17 10:41 Dose: Not Given Home Med (Sitagliptin Phos/Metformin Hcl [Janumet 50-1,000 Mg Tablet]) 1 each PO DAILY [facility] Last Admin: 07/13/17 10:41 Dose: Not Given Insulin Aspart (Novolog) 0 unit SC ACHS [facility] PRN Reason: Protocol Last Admin: 07/13/17 12:03 Dose: Not Given Losartan Potassium (Cozaar) 25 mg PO DAILY [facility] Last Admin: 07/13/17 10:01 Dose: 25 mg Metoprolol Succinate (Toprol Xl) 50 mg PO DAILY [facility] Nitroglycerin (Nitrostat Sl Tab) 0.4 mg SL PRN PRN PRN Reason: Pain, moderate (4-7) Nitroglycerin (Nitro-Dur 0.2 Mg/Hr Patch) 1 patch TD DAILY [facility] Last Admin: 07/13/17 10:04 Dose: 1 patch Physical Exam - Constitutional Appears: Non-toxic - Head Exam Head Exam: NORMAL INSPECTION - Eye Exam Eye Exam: Normal appearance - ENT Exam ENT Exam: Mucous Membranes Moist - Neck Exam Neck exam: Positive for: Full Rom - Respiratory Exam Respiratory Exam: Decreased Breath Sounds - Cardiovascular Exam Cardiovascular Exam: REGULAR RHYTHM - GI/Abdominal Exam GI & Abdominal Exam: Normal Bowel Sounds - Rectal Exam Rectal Exam: Deferred - Extremities Exam Extremities exam: Positive for: pedal edema - Back Exam Back exam: NORMAL INSPECTION - Neurological Exam Neurological exam: Alert, Oriented x3 - Psychiatric Exam Psychiatric exam: Normal Affect - Skin Skin Exam: Normal Color Results - Vital Signs Recent Vital Signs: Last Vital Signs Temp 98.5 F 07/13/17 08:00 Pulse 77 07/13/17 10:00 Resp 22 07/13/17 10:00 BP 150/81 07/13/17 10:14 Pulse Ox 99 07/13/17 10:00 - Labs Result Diagrams: 07/12/17 19:18 07/12/17 19:18 Labs: Laboratory Results - last 24 hr 07/12/17 07/12/17 07/12/17 19:18 19:18 19:18 WBC 5.6 D RBC 3.30 L Hgb 9.8 L Hct 28.8 L MCV 87.4 MCH 29.6 MCHC 33.9 RDW 17.1 H Plt Count 252 D MPV 8.8 Neut % (Auto) 82.9 H Lymph % (Auto) 7.6 L Jones % (Auto) 7.6 Eos % (Auto) 0.8 Baso % (Auto) 1.1 Neut # 4.6 Lymph # 0.4 L Jones # 0.4 Eos # 0.0 Baso # 0.1 Neutrophils % (Manual) 80 H Lymphocytes % (Manual) 8 L Monocytes % (Manual) 10 Eosinophils % (Manual) 2 Platelet Estimate Normal Anisocytosis (manual) Slight PT 14.2 H INR 1.3 APTT 41 H D-Dimer, Quantitative > 5250 H Sodium 123 L Potassium 3.8 Chloride 84 L Carbon Dioxide 38 H Anion Gap 5 L BUN 27 H Creatinine 0.7 Est GFR ( Amer) > 60 Est GFR (Non-Af Amer) > 60 POC Glucose (mg/dL) Random Glucose 114 H Calcium 8.3 L Total Bilirubin 0.9 AST 34 ALT 23 Alkaline Phosphatase 148 H Troponin I 0.0340 NT-Pro-B Natriuret Pep 88385 H Total Protein 7.5 Albumin 2.8 L Globulin 4.7 H Albumin/Globulin Ratio 0.6 L 07/13/17 07/13/17 07:48 11:49 WBC RBC Hgb Hct MCV MCH MCHC RDW Plt Count MPV Neut % (Auto) Lymph % (Auto) Jones % (Auto) Eos % (Auto) Baso % (Auto) Neut # Lymph # Jones # Eos # Baso # Neutrophils % (Manual) Lymphocytes % (Manual) Monocytes % (Manual) Eosinophils % (Manual) Platelet Estimate Anisocytosis (manual) PT INR APTT D-Dimer, Quantitative Sodium Potassium Chloride Carbon Dioxide Anion Gap BUN Creatinine Est GFR ( Amer) Est GFR (Non-Af Amer) POC Glucose (mg/dL) 83 149 H Random Glucose Calcium Total Bilirubin AST ALT Alkaline Phosphatase Troponin I NT-Pro-B Natriuret Pep Total Protein Albumin Globulin Albumin/Globulin Ratio - EKG Data EKG Interpreted by: Myself EKG shows normal: Sinus rhythm Assessment & Plan (1) Systolic dysfunction with acute on chronic heart failure Assessment and Plan: severe LV dsyfunction on previus echocardiogram. will start Metoprolol Succinate. diuresis Likely will need Lifevest Status: Acute (2) CAD (coronary artery disease) Assessment and Plan: antiplatelet therapy Status: Acute (3) Hypertension Assessment and Plan: aggressive blood pressure control Status: Chronic
[2017-07-13] MEDS: Metoprolol Succinate 50 mg XL Tab PO SCH (14:39)
[2017-07-13] MEDS: Rosuvastatin Calcium 2.5 mg Tab PO SCH (22:07)
--- NOTE | 2017-07-14 02:40 | PN ---
DATE: 07/13/2017 SUBJECTIVE: Patient was seen and examined at the bedside on 07/13/2017. Looking a little bit comfortable. Still complaining about back pain and knee pain. No nausea, vomiting, or diarrhea. No hematuria, no hematochezia. No headache, no dizziness. No chest pain, no palpitation. PHYSICAL EXAMINATION: VITAL SIGNS: Temperature 97.7, pulse 69, blood pressure 121/77, respiratory rate 20. HEENT: Head: Normocephalic, atraumatic. Eyes: PERRLA. Extraocular movements are intact. Conjunctivae clear. Nose patent. Mucous membranes are moist. NECK: Supple. No carotid bruit. No JVD or thyromegaly. CHEST: Bilaterally symmetrical. HEART: S1, S2 positive. LUNGS: Clear to auscultation. ABDOMEN: Soft. Bowel sounds are present. No organomegaly. EXTREMITIES: Trace edema of the left leg. No cyanosis. NEUROLOGICAL: Patient is awake, alert. Moving all four extremities. No focal deficit. MEDICATIONS: Cozaar, Crestor, Glucophage, Januvia, K-Dur, Lasix, Lexapro, Namenda, Tylenol, Toprol, Protonix, NovoLog, Nitrostat. LABORATORY DATA: We do not have labs today, but I reviewed old labs. We have glucose 99, 149, 83. ASSESSMENT AND PLAN: Ms. Alcira Mobley is a 72-year-old lady with hyponatremia, hypochloremia, renal insufficiency, diabetes mellitus, hyperglycemia, hypocalcemia, congestive heart failure, BNP is very high at 48,500, anemia, seen by Dr. Shilo Rowan, patient's bilingual speech language pathologist. Chest CT reviewed by me. Patient has systolic dysfunction with [id number] heart failure, coronary artery disease, hypertension. Patient has cardiomegaly, atherosclerotic disease, 4.2-cm ascending aortic aneurysm, paramedian sternotomy and the mitral valve replacement, dilated main pulmonary artery reflux into the inferior vena cava suggestive of pulmonary hypertension, pleural effusion, small left effusion, bilateral asymmetrical ground glass opacities, atelectasis versus infiltrates. Concrete Swimming Pool Installer is on the case. Gastrointestinal and deep venous thrombosis prophylaxis. Repeat labs. We will follow. Kallie Jordan MD [facility] # [id number]
[2017-07-14] MEDS: (Novolog) Insulin Aspart, Recombinant 100 u/ml 10 ml vial SC SCH ×4 (08:27→23:00)
[2017-07-14] MEDS: Nitroglycerin 0.2 mg/hr Top Patch TD SCH (09:51)
[2017-07-14] MEDS: Potassium Chloride 20 mEq ER Tab PO SCH (09:51)
[2017-07-14] MEDS: Pantoprazole 40 mg EC Tab PO SCH (09:52)
[2017-07-14] MEDS: Enoxaparin 60 mg Syringe SC SCH (09:56)
[2017-07-14] MEDS ORDERED: Rosuvastatin Calcium 2.5 mg Tab PO SCH (10:00)
[2017-07-14] MEDS: Metoprolol Succinate 50 mg XL Tab PO SCH (10:02)
--- NOTE | 2017-07-14 14:16 | CP.PCM.PN ---
Subjective - Date & Time of Evaluation Date of Evaluation: 07/14/17 Time of Evaluation: 14:10 - Subjective Subjective: patient has no current chest pain or dyspnea. Objective - Vital Signs/Intake and Output Vital Signs (last 24 hours): Temp Pulse Resp BP Pulse Ox 97.5 F L 58 L 20 123/72 95 07/14/17 09:16 07/14/17 09:16 07/14/17 09:16 07/14/17 12:03 07/14/17 09:16 Intake and Output: 07/14/17 07/14/17 06:59 18:59 Intake Total 500 Balance 500 - Medications Medications: Current Medications Acetaminophen (Tylenol 325mg Tab) 650 mg PO Q8H PRN PRN Reason: Pain, Mild (1-3) Last Admin: 07/14/17 13:04 Dose: 650 mg Enoxaparin Sodium (Lovenox) 69 mg SC DAILY [facility] Last Admin: 07/14/17 09:56 Dose: 69 mg Escitalopram Oxalate (Lexapro) 20 mg PO DAILY [facility] Last Admin: 07/14/17 09:57 Dose: 20 mg Furosemide (Lasix) 40 mg IVP DAILY [facility] Last Admin: 07/14/17 12:03 Dose: 40 mg Home Med (Etanercept [Enbrel]) 50 mg SC QWK [facility] Insulin Aspart (Novolog) 0 unit SC ACHS [facility] PRN Reason: Protocol Last Admin: 07/14/17 12:14 Dose: Not Given Losartan Potassium (Cozaar) 25 mg PO DAILY [facility] Last Admin: 07/14/17 10:01 Dose: 25 mg Memantine (Namenda) 10 mg PO BID [facility] Last Admin: 07/14/17 09:51 Dose: 10 mg Metformin HCl (Glucophage) 1,000 mg PO DAILY [facility] Last Admin: 07/14/17 09:51 Dose: 1,000 mg Metoprolol Succinate (Toprol Xl) 50 mg PO DAILY [facility] Last Admin: 07/14/17 10:02 Dose: 50 mg Nitroglycerin (Nitro-Dur 0.2 Mg/Hr Patch) 1 patch TD DAILY [facility] Last Admin: 07/14/17 09:51 Dose: 1 patch Nitroglycerin (Nitrostat Sl Tab) 0.4 mg SL Q5M PRN PRN Reason: chest pain Pantoprazole Sodium (Protonix Ec Tab) 40 mg PO DAILY [facility] Last Admin: 07/14/17 09:52 Dose: 40 mg Potassium Chloride (K-Dur 20 Meq Er Tab) 20 meq PO DAILY [facility] Last Admin: 07/14/17 09:51 Dose: 20 meq Rosuvastatin Calcium (Crestor) 2.5 mg PO HS [facility] Last Admin: 07/13/17 22:07 Dose: 2.5 mg Sitagliptin Phosphate (Januvia) 50 mg PO DAILY [facility] Last Admin: 07/14/17 09:52 Dose: 50 mg - Labs Labs: 07/12/17 19:18 07/12/17 19:18 PT 14.2 SECONDS (9.7-12.2) H 07/12/17 19:18 INR 1.3 07/12/17 19:18 APTT 41 SECONDS (21-34) H 07/12/17 19:18 - Constitutional Appears: Non-toxic - Head Exam Head Exam: NORMAL INSPECTION - Eye Exam Eye Exam: Normal appearance - ENT Exam ENT Exam: Mucous Membranes Moist - Neck Exam Neck Exam: Full ROM - Respiratory Exam Respiratory Exam: Decreased Breath Sounds - Cardiovascular Exam Cardiovascular Exam: REGULAR RHYTHM - GI/Abdominal Exam GI & Abdominal Exam: Normal Bowel Sounds - Rectal Exam Rectal Exam: Deferred - Extremities Exam Extremities Exam: absent: Pedal Edema - Back Exam Back Exam: NORMAL INSPECTION - Neurological Exam Neurological Exam: Alert - Psychiatric Exam Psychiatric exam: Normal Affect - Skin Skin Exam: Normal Color Assessment and Plan (1) Systolic dysfunction with acute on chronic heart failure Assessment & Plan: improved volume status. will continue lasix. on appropriate medical therapy Status: Acute (2) CAD (coronary artery disease) Assessment & Plan: s/p CABG. no ischemia Status: Acute (3) Hypertension Assessment & Plan: better controlled today Status: Chronic
--- NOTE | 2017-07-14 19:33 | CP.PCM.CON ---
History of Present Illness - History of Present Illness History of Present Illness: reason for consultation: shortness of breath and pleural effusion 72 year old female with history of ischemic cardiomyopathy s/p CABG MVR who presented with left leg swelling and dyspnea. CAT scan of the chest consistent with large right pleural effusion. Patient lying comfortably in no distress. No fever chills, no chest pain Review of Systems - Review of Systems All systems: reviewed and no additional remarkable complaints except (shortness of breath) Past Patient History - Infectious Disease Hx of Infectious Diseases: None - Past Medical History & Family History Past Medical History?: Yes - Past Social History Smoking Status: Never Smoked - CARDIAC Hx Atrial Fibrillation: Yes Hx Cardia Arrhythmia: Yes Hx Congestive Heart Failure: Yes Hx Hypercholesterolemia: Yes Hx Hypertension: Yes - PULMONARY Hx Chronic Obstructive Pulmonary Disease (COPD): Yes - NEUROLOGICAL Hx Dementia: Yes - HEENT Hx HEENT Problems: No - RENAL Hx Chronic Kidney Disease: No - ENDOCRINE/METABOLIC Hx Endocrine Disorders: Yes Hx Diabetes Mellitus Type 2: Yes - HEMATOLOGICAL/ONCOLOGICAL Hx Anemia: Yes - INTEGUMENTARY Hx Dermatological Problems: No - MUSCULOSKELETAL/RHEUMATOLOGICAL Hx Arthritis: Yes Hx Falls: No Hx Osteoporosis: Yes Hx Rheumatoid Arthritis: Yes - GASTROINTESTINAL Hx Gastrointestinal Disorders: Yes Hx Ulcer: Yes Other/Comment: appendectomy history of endoscopies. ventral hernia - GENITOURINARY/GYNECOLOGICAL Hx Sexually Transmitted Disorders: No - PSYCHIATRIC Hx Substance Use: No - SURGICAL HISTORY Hx Appendectomy: Yes Hx Coronary Artery Bypass Graft: Yes Hx Coronary Stent: Yes - ANESTHESIA Hx Anesthesia: Yes Hx Anesthesia Reactions: No Hx Malignant Hyperthermia: No Meds Allergies/Adverse Reactions: Allergies Allergy/AdvReac Type Severity Reaction Status Date / Time No Known Allergies Allergy Verified 07/12/17 18:07 - Medications Medications: Current Medications Acetaminophen (Tylenol 325mg Tab) 650 mg PO Q8H PRN PRN Reason: Pain, Mild (1-3) Last Admin: 07/14/17 13:04 Dose: 650 mg Enoxaparin Sodium (Lovenox) 69 mg SC DAILY [facility] Last Admin: 07/14/17 09:56 Dose: 69 mg Escitalopram Oxalate (Lexapro) 20 mg PO DAILY [facility] Last Admin: 07/14/17 09:57 Dose: 20 mg Furosemide (Lasix) 40 mg IVP DAILY [facility] Last Admin: 07/14/17 12:03 Dose: 40 mg Home Med (Etanercept [Enbrel]) 50 mg SC QWK [facility] Insulin Aspart (Novolog) 0 unit SC ACHS [facility] PRN Reason: Protocol Last Admin: 07/14/17 17:46 Dose: Not Given Losartan Potassium (Cozaar) 25 mg PO DAILY [facility] Last Admin: 07/14/17 10:01 Dose: 25 mg Memantine (Namenda) 10 mg PO BID [facility] Last Admin: 07/14/17 17:53 Dose: 10 mg Metformin HCl (Glucophage) 1,000 mg PO DAILY [facility] Last Admin: 07/14/17 09:51 Dose: 1,000 mg Metoprolol Succinate (Toprol Xl) 50 mg PO DAILY [facility] Last Admin: 07/14/17 10:02 Dose: 50 mg Nitroglycerin (Nitro-Dur 0.2 Mg/Hr Patch) 1 patch TD DAILY [facility] Last Admin: 07/14/17 09:51 Dose: 1 patch Nitroglycerin (Nitrostat Sl Tab) 0.4 mg SL Q5M PRN PRN Reason: chest pain Pantoprazole Sodium (Protonix Ec Tab) 40 mg PO DAILY [facility] Last Admin: 07/14/17 09:52 Dose: 40 mg Potassium Chloride (K-Dur 20 Meq Er Tab) 20 meq PO DAILY [facility] Last Admin: 07/14/17 09:51 Dose: 20 meq Rosuvastatin Calcium (Crestor) 2.5 mg PO HS [facility] Last Admin: 07/13/17 22:07 Dose: 2.5 mg Sitagliptin Phosphate (Januvia) 50 mg PO DAILY [facility] Last Admin: 07/14/17 09:52 Dose: 50 mg Tramadol HCl (Ultram) 50 mg PO Q8H PRN PRN Reason: Pain, moderate (4-7) Last Admin: 07/14/17 16:33 Dose: 50 mg Physical Exam - Head Exam Head Exam: ATRAUMATIC, NORMOCEPHALIC - Eye Exam Eye Exam: Normal appearance - ENT Exam ENT Exam: Mucous Membranes Moist - Neck Exam Neck exam: Positive for: Normal Inspection - Respiratory Exam Respiratory Exam: Decreased Breath Sounds - Cardiovascular Exam Cardiovascular Exam: REGULAR RHYTHM Results - Vital Signs Recent Vital Signs: Last Vital Signs Temp 97.5 F L 07/14/17 16:00 Pulse 61 07/14/17 16:00 Resp 20 07/14/17 16:00 BP 135/69 07/14/17 16:00 Pulse Ox 96 01/28/18 16:00 - Labs Result Diagrams: 07/12/17 19:18 07/12/17 19:18 Labs: Laboratory Results - last 24 hr 07/13/17 07/14/17 07/14/17 22:48 07:07 11:30 POC Glucose (mg/dL) 89 82 102 07/14/17 17:42 POC Glucose (mg/dL) 87 Assessment & Plan (1) Pleural effusion Status: Acute Comment: secondary to CHF. Possible thoracentesis. Elevated d-dimer was negative CAT scan for pulmonary embolism. Diuretics. ABG (2) CHF (congestive heart failure) Status: Acute
[2017-07-14] MEDS: Rosuvastatin Calcium 2.5 mg Tab PO SCH (21:21)
--- NOTE | 2017-07-15 05:02 | PN ---
DATE: SUBJECTIVE: Patient is a 72-year-old female. Patient was seen and examined on the bedside. was sitting on the bedside also, having pain in the left knee. Left knee is still swollen, still having shortness of breath with exertion and no nausea, vomiting or diarrhea. No hematuria, no hematochezia. No headache, no dizziness. PHYSICAL EXAMINATION: VITAL SIGNS: Temperature 97.5, pulse 61, blood pressure 135/69, respiratory rate 20. HEENT: Head: Normocephalic, atraumatic. Eyes: PERRLA. Extraocular movements are intact. Conjunctivae clear. Nose patent. Mucous membranes are moist. NECK: Supple. No carotid bruit. No JVD or thyromegaly. CHEST: Bilaterally symmetrical. HEART: S1, S2 positive. LUNGS: Clear to auscultation. ABDOMEN: Soft. Bowel sounds present. No organomegaly. EXTREMITIES: Left knee swollen, otherwise both upper extremities, no edema, no cyanosis. NEUROLOGIC: Patient is awake, alert. Moving all four extremities. No focal deficit. Oriented x3. MEDICATIONS: Cozaar, Crestor, Glucophage, Januvia, K-Dur, Lasix, Lexapro, Lovenox, Namenda, nitroglycerin, NovoLog, Protonix, Tylenol, tramadol. LABORATORY DATA: White blood cells 5.6, hemoglobin 9.8, hematocrit 28.8, platelets 252. Sodium 123, potassium 3.8, BUN 27, creatinine 0.7, glucose 149. ASSESSMENT AND PLAN: Ms. Alcira Mobley is a 72-year-old lady with anemia, hyponatremia, hypochloremia, renal insufficiency, diabetes mellitus, hypocalcemia, congestive heart failure, seen by Dr. Shilo Rowan, patient's carpenter's helper. Reviewed Dr. Shilo Rowan' notes. Patient has systolic dysfunction with [id number] heart failure, we will continue Lasix; coronary artery disease status post coronary artery bypass graft, no ischemia now; hypertension, better controlled today as per carpenter's helper. Seen by Immanuel Alvarez for dyspnea. Patient has ischemic cardiomyopathy. CAT scan of the chest shows large right pleural effusion, may be secondary to congestive heart failure, possible thoracentesis, elevated D-dimer, was negative CAT scan for pulmonary embolism. Dr. Alvarez suggesting ABG. Call Orthopedic consult for left knee swelling. Give pain medication. Lower extremity ultrasound done. Gastrointestinal and deep venous thrombosis prophylaxis. Patient is getting Lovenox. We will follow. Kallie Jordan MD
[2017-07-15] MEDS: (Novolog) Insulin Aspart, Recombinant 100 u/ml 10 ml vial SC SCH ×4 (07:19→21:50)
[2017-07-15 08:05] LABS: HEMOGLOBIN 9.4 g/dL (11.0-16.0); MEAN CELL VOLUME 88.1 fL (81.0-99.0); MEAN CORPUSCULAR HEMOGLOBIN 29.5 pg (27.0-31.0); MEAN CORPUSCULAR HGB CONC 33.5 g/dL (33.0-37.0); MEAN PLATELET VOLUME 9.2 fL (7.2-11.7); RBC 3.18 Mil/uL (3.80-5.20); RED CELL DISTRIBUTION WIDTH 16.6 % (11.5-14.5); WHITE BLOOD COUNT 5.5 K/uL (4.8-10.8)
--- NOTE | 2017-07-15 08:11 | HP ---
CHIEF COMPLAINT: Left leg pain and swelling. The patient was seen and examined on the bedside in the emergency room on 07/12/2017. CHIEF COMPLAINT: :Left leg pain and swelling. HISTORY OF PRESENT ILLNESS: Ms. Alcira Mobley is a 72-year-old lady with a past medical history of congestive heart failure, came to emergency room with complaining of left leg pain and swelling, worsening for the past few days, also reports dyspnea and fluid in the lungs. The patient was recently admitted for congestive heart failure. Denies nausea, vomiting, diarrhea, chest pain, shortness of breath or fatigue. No known trauma. No history of long journey, no history of sick contact. PAST MEDICAL HISTORY: Anemia, arthritis, atrial fibrillation, coronary artery disease, cardiac arrhythmia, congestive heart failure, COPD, dementia, diabetes mellitus, hypertension, hypercholesteremia, osteoporosis, rheumatoid arthritis. PAST SURGICAL HISTORY: Appendectomy, CABG, coronary artery stent. FAMILY HISTORY: Father and mother noncontributory. HABITS: Tobacco yes, alcohol no, substance no. ALLERGIES: THE PATIENT IS NOT ALLERGIC TO ANY MEDICATIONS. HOME MEDICATIONS: Lopressor, Januvia, potassium, omeprazole, nitroglycerine, Namenda, Cozaar, Lasix. REVIEW OF SYSTEMS: The patient is seen and examined at the bedside, looking comfortable. No nausea, vomiting, or diarrhea. No hematuria or hematochezia. No headache or dizziness. No fever, no chills, no shortness of breath. PHYSICAL EXAMINATION: VITAL SIGNS: Temperature 98, pulse 56, respiratory rate 21, blood pressure 142/71. HEENT: Head normocephalic, atraumatic. Eyes, PERRLA. Extraocular movements intact. Conjunctivae clear. Nose patent. Mucous membranes moist. NECK: Supple. No carotid bruits, JVD, or thyromegaly. CHEST: Bilaterally symmetrical. LUNGS: Rales at the bases and no stridor, no wheezing. ABDOMEN: Soft. Bowel sounds are present. No organomegaly. EXTREMITIES: Normal range of motion and left leg swelling, plus pulse is present. NEUROLOGIC: The patient is oriented x3. Normal speech, obeys simple orders. LABORATORY DATA: White blood cell is 5.6, hemoglobin 9.8, hematocrit 28.8, platelet 252. Sodium 123, potassium 3.8, BUN 27, creatinine 0.7, glucose 114. ASSESSMENT AND PLAN: Ms. Alcira Mobley is a 72-year-old lady with anemia, hyponatremia, hypochloremia, renal insufficiency, hyperglycemia, came in with swelling of the legs, exacerbation of congestive heart failure, elevated D-dimer. Chest x-ray done, reviewed by me. X-ray of hip and pelvis done, moderate narrowing of the left hip joint space with subchondral sclerosis, severe degenerative changes of the right hip joint space with joint space narrowing and subchondral sclerosis, permanent degenerative changes in the lower lumbar spine. X-ray of the knee done showed large left knee joint effusion. We will call Orthopedic consult. Doppler of the extremities done, results are pending. The patient has history of ischemic cardiomyopathy, status post coronary artery bypass graft, mitral valve replacement, has dyspnea, systolic dysfunction with acute chronic heart failure. Dr. Shilo Rowan started metoprolol, diuresis, hypertension, excessive blood pressure control. The patient has history of atrial fibrillation, chronic obstructive pulmonary disease, dementia, diabetes mellitus, hypertension, hypercholesterolemia, osteoporosis, rheumatoid arthritis. The patient is seen by the project associate, Dr. Shilo Rowan. We will follow Orthopedic consult. Continue present treatment. Repeat labs. We will follow. Kallie Jordan MD
--- NOTE | 2017-07-15 08:22 | CP.PCM.PN ---
Subjective - Date & Time of Evaluation Date of Evaluation: 07/15/17 Time of Evaluation: 08:10 - Subjective Subjective: william has no new complaints. seen by Dr Alvaerz. Objective - Vital Signs/Intake and Output Vital Signs (last 24 hours): Temp Pulse Resp BP Pulse Ox 98.7 F 64 18 131/77 100 07/15/17 07:00 07/15/17 07:00 07/15/17 07:00 07/15/17 07:00 07/15/17 07:00 Intake and Output: 07/15/17 07/15/17 06:59 18:59 Intake Total 400 Balance 400 - Medications Medications: Current Medications Acetaminophen (Tylenol 325mg Tab) 650 mg PO Q8H PRN PRN Reason: Pain, Mild (1-3) Last Admin: 07/14/17 13:04 Dose: 650 mg Enoxaparin Sodium (Lovenox) 69 mg SC DAILY [facility] Last Admin: 07/14/17 09:56 Dose: 69 mg Escitalopram Oxalate (Lexapro) 20 mg PO DAILY [facility] Last Admin: 07/14/17 09:57 Dose: 20 mg Furosemide (Lasix) 40 mg IVP DAILY [facility] Last Admin: 07/14/17 12:03 Dose: 40 mg Home Med (Etanercept [Enbrel]) 50 mg SC QWK [facility] Insulin Aspart (Novolog) 0 unit SC ACHS [facility] PRN Reason: Protocol Last Admin: 07/15/17 07:19 Dose: Not Given Losartan Potassium (Cozaar) 25 mg PO DAILY [facility] Last Admin: 07/14/17 10:01 Dose: 25 mg Memantine (Namenda) 10 mg PO BID [facility] Last Admin: 07/14/17 17:53 Dose: 10 mg Metformin HCl (Glucophage) 1,000 mg PO DAILY [facility] Last Admin: 07/14/17 09:51 Dose: 1,000 mg Metoprolol Succinate (Toprol Xl) 50 mg PO DAILY [facility] Last Admin: 07/14/17 10:02 Dose: 50 mg Nitroglycerin (Nitro-Dur 0.2 Mg/Hr Patch) 1 patch TD DAILY [facility] Last Admin: 07/14/17 09:51 Dose: 1 patch Nitroglycerin (Nitrostat Sl Tab) 0.4 mg SL Q5M PRN PRN Reason: chest pain Pantoprazole Sodium (Protonix Ec Tab) 40 mg PO DAILY [facility] Last Admin: 07/14/17 09:52 Dose: 40 mg Potassium Chloride (K-Dur 20 Meq Er Tab) 20 meq PO DAILY [facility] Last Admin: 07/14/17 09:51 Dose: 20 meq Rosuvastatin Calcium (Crestor) 2.5 mg PO HS [facility] Last Admin: 07/14/17 21:21 Dose: 2.5 mg Sitagliptin Phosphate (Januvia) 50 mg PO DAILY [facility] Last Admin: 07/14/17 09:52 Dose: 50 mg Tramadol HCl (Ultram) 50 mg PO Q8H PRN PRN Reason: Pain, moderate (4-7) Last Admin: 07/14/17 16:33 Dose: 50 mg - Labs Labs: 07/15/17 07:34 07/12/17 19:18 PT 14.2 SECONDS (9.7-12.2) H 07/12/17 19:18 INR 1.3 07/12/17 19:18 APTT 41 SECONDS (21-34) H 07/12/17 19:18 - Constitutional Appears: Non-toxic - Head Exam Head Exam: NORMAL INSPECTION - Eye Exam Eye Exam: Normal appearance - Neck Exam Neck Exam: Full ROM - Respiratory Exam Respiratory Exam: Decreased Breath Sounds - Cardiovascular Exam Cardiovascular Exam: REGULAR RHYTHM - GI/Abdominal Exam GI & Abdominal Exam: Normal Bowel Sounds - Rectal Exam Rectal Exam: Deferred - Extremities Exam Extremities Exam: absent: Pedal Edema - Back Exam Back Exam: NORMAL INSPECTION - Neurological Exam Neurological Exam: Alert - Psychiatric Exam Psychiatric exam: Normal Affect - Skin Skin Exam: Normal Color Assessment and Plan (1) Systolic dysfunction with acute on chronic heart failure Assessment & Plan: imporved volums status. medical therapy. outpatient evaluation for possible AICD Status: Acute (2) CAD (coronary artery disease) Assessment & Plan: no current angina Status: Acute (3) Hypertension Assessment & Plan: blood pressure control Status: Chronic
[2017-07-15 08:44] LABS: BLOOD UREA NITROGEN 18 mg/dL (7-17); CALCIUM 7.9 mg/dl (8.6-10.4); GFR AFRICAN-AMERICAN > 60; GFR NON-AFRICAN AMERICAN > 60
[2017-07-15 09:19] LABS: ABG ALLEN TEST POS; ARTERIAL BLOOD GAS HCO3 36.6 mmol/L (21-28); ARTERIAL BLOOD GAS HEMOGLOBIN 9.5 g/dL (11.7-17.4); ARTERIAL BLOOD GAS O2 SAT 100.4 % (95-98); ARTERIAL BLOOD GAS PCO2 47 mm/Hg (35-45); ARTERIAL BLOOD GAS PH 7.53 (7.35-7.45); ARTERIAL BLOOD GAS PO2 182 mm/Hg (80-100); ARTERIAL BLOOD GAS TCO2 40.7 mmol/L (22-28)
[2017-07-15] MEDS: Nitroglycerin 0.2 mg/hr Top Patch TD SCH (10:00)
[2017-07-15] MEDS ORDERED: Potassium Chloride 20 mEq ER Tab PO ONE ×2 (10:00)
[2017-07-15] MEDS: Pantoprazole 40 mg EC Tab PO SCH (10:01)
[2017-07-15] MEDS: Potassium Chloride 20 mEq ER Tab PO SCH (10:02)
[2017-07-15] MEDS: Metoprolol Succinate 50 mg XL Tab PO SCH (10:02)
[2017-07-15] MEDS: Enoxaparin 60 mg Syringe SC SCH (10:05)
[2017-07-15 13:07] LABS: FLUID TYPE SYNOVIAL FLUID
--- NOTE | 2017-07-15 13:26 | CP.PCM.CON ---
History of Present Illness - History of Present Illness History of Present Illness: ORthopedic consultation Dr. Olivia 72F complains of 2-3 weeks of left knee pain and swelling. History is from patient's by phone, as patient nods but is not answering questions. denies any recent trauma or falls. Denies known history of gout. He says that since she had open heart she gets swelling in her legs, but she takes the water pill and it improved. Explained that there is swelling inside the knee joint and asked if she ever had injection or aspiration, and denies. states she has history of gout. Knee arthrocentesis: Risks, benefits, alternatives of knee arthrocentesis and aspiration were explained in detail to , as is unable to consent, and verbally consented to procedure with commanding officer motorized squad. The patient's left knee was prepped in the usual sterile fashion with betadyne and chloroprep. A 21 -gauge 1.5 inch needle was inserted into the knee joint from a superior lateral approach. Through this needle 85 cc of sl cloudy yellow synovial fluid was aspirated, and sent for stat cell count, crystals, gram stain, culture and sensitivity. The needle was removed, and sterile dressing, arden bandage, and ice were applied to knee. Patient tolerated the procedure well. There were no complications. Review of Systems - Review of Systems Systems not reviewed;Unavailable: Altered Mental Status Past Patient History - Infectious Disease Hx of Infectious Diseases: None - Past Medical History & Family History Past Medical History?: Yes Past Family History: Reviewed and not pertinent - Past Social History Smoking Status: Never Smoked - CARDIAC Hx Atrial Fibrillation: Yes Hx Cardia Arrhythmia: Yes Hx Congestive Heart Failure: Yes Hx Hypercholesterolemia: Yes Hx Hypertension: Yes - PULMONARY Hx Chronic Obstructive Pulmonary Disease (COPD): Yes - NEUROLOGICAL Hx Dementia: Yes - HEENT Hx HEENT Problems: No - RENAL Hx Chronic Kidney Disease: No - ENDOCRINE/METABOLIC Hx Endocrine Disorders: Yes Hx Diabetes Mellitus Type 2: Yes - HEMATOLOGICAL/ONCOLOGICAL Hx Anemia: Yes - INTEGUMENTARY Hx Dermatological Problems: No - MUSCULOSKELETAL/RHEUMATOLOGICAL Hx Arthritis: Yes Hx Osteoporosis: Yes Hx Rheumatoid Arthritis: Yes - GASTROINTESTINAL Hx Gastrointestinal Disorders: Yes Hx Ulcer: Yes Other/Comment: appendectomy history of endoscopies. ventral hernia - GENITOURINARY/GYNECOLOGICAL Hx Sexually Transmitted Disorders: No - PSYCHIATRIC Hx Substance Use: No - SURGICAL HISTORY Hx Appendectomy: Yes Hx Coronary Artery Bypass Graft: Yes Hx Coronary Stent: Yes - ANESTHESIA Hx Anesthesia: Yes Hx Anesthesia Reactions: No Hx Malignant Hyperthermia: No Meds Allergies/Adverse Reactions: Allergies Allergy/AdvReac Type Severity Reaction Status Date / Time No Known Allergies Allergy Verified 07/12/17 18:07 - Medications Medications: Current Medications Acetaminophen (Tylenol 325mg Tab) 650 mg PO Q8H PRN PRN Reason: Pain, Mild (1-3) Last Admin: 07/14/17 13:04 Dose: 650 mg Enoxaparin Sodium (Lovenox) 69 mg SC DAILY [facility] Last Admin: 07/15/17 10:05 Dose: 69 mg Escitalopram Oxalate (Lexapro) 20 mg PO DAILY [facility] Last Admin: 07/15/17 10:06 Dose: Not Given Home Med (Etanercept [Enbrel]) 50 mg SC QWK [facility] Insulin Aspart (Novolog) 0 unit SC ACHS [facility] PRN Reason: Protocol Last Admin: 07/15/17 12:32 Dose: Not Given Losartan Potassium (Cozaar) 25 mg PO DAILY [facility] Last Admin: 07/15/17 10:02 Dose: 25 mg Memantine (Namenda) 10 mg PO BID [facility] Last Admin: 07/15/17 10:02 Dose: 10 mg Metformin HCl (Glucophage) 1,000 mg PO DAILY [facility] Last Admin: 07/15/17 10:03 Dose: Not Given Metoprolol Succinate (Toprol Xl) 50 mg PO DAILY [facility] Last Admin: 07/15/17 10:02 Dose: 50 mg Nitroglycerin (Nitro-Dur 0.2 Mg/Hr Patch) 1 patch TD DAILY [facility] Last Admin: 07/15/17 10:00 Dose: 1 patch Nitroglycerin (Nitrostat Sl Tab) 0.4 mg SL Q5M PRN PRN Reason: chest pain Pantoprazole Sodium (Protonix Ec Tab) 40 mg PO DAILY [facility] Last Admin: 07/15/17 10:01 Dose: 40 mg Potassium Chloride (K-Dur 20 Meq Er Tab) 20 meq PO DAILY [facility] Last Admin: 07/15/17 10:02 Dose: 20 meq Rosuvastatin Calcium (Crestor) 2.5 mg PO HS [facility] Last Admin: 07/14/17 21:21 Dose: 2.5 mg Sitagliptin Phosphate (Januvia) 50 mg PO DAILY [facility] Last Admin: 07/15/17 10:04 Dose: Not Given Tramadol HCl (Ultram) 50 mg PO Q8H PRN PRN Reason: Pain, moderate (4-7) Last Admin: 07/14/17 16:33 Dose: 50 mg Physical Exam - Constitutional Appears: Well, No Acute Distress - Head Exam Head Exam: ATRAUMATIC - Expanded Lower Extremities Exam Left Hip exam: full ROM, normal inspection Knee exam: effusion (large joint effusion, mildly warm, no erythema, c/o pain with knee ROM, minimal peripheral edema) Neuro vacular tendon exam: no vascular compromise (calves soft NT neg homans) - Neurological Exam Additional comments: sleeping, but easily aroused. nods but does not verbalize answers - Psychiatric Exam Psychiatric exam: Normal Affect, Normal Mood - Skin Skin Exam: Dry, Intact (no erythema to knee), Normal Color, Warm Results - Vital Signs Recent Vital Signs: Last Vital Signs Temp 98.7 F 07/15/17 07:00 Pulse 62 07/15/17 09:59 Resp 18 07/15/17 07:00 BP 134/78 07/15/17 10:04 Pulse Ox 99 07/15/17 08:25 - Labs Result Diagrams: 07/15/17 07:34 07/15/17 07:34 Labs: Laboratory Results - last 24 hr 07/14/17 07/14/17 07/15/17 17:42 21:54 06:52 WBC RBC Hgb Hct MCV MCH MCHC RDW Plt Count MPV Puncture Site pCO2 pO2 HCO3 ABG pH ABG Total CO2 ABG O2 Saturation ABG Base Excess ABG Hemoglobin ABG Carboxyhemoglobin POC ABG HHb (Measured) ABG Methemoglobin Reji Test A-a O2 Difference Respiratory Index Hgb O2 Saturation Liter Flow FiO2 Sodium Potassium Chloride Carbon Dioxide Anion Gap BUN Creatinine Est GFR ( Amer) Est GFR (Non-Af Amer) POC Glucose (mg/dL) 87 74 69 Random Glucose Calcium Fluid Type 07/15/17 07/15/17 07/15/17 06:53 07:25 07:34 WBC 5.5 RBC 3.18 L Hgb 9.4 L Hct 28.0 L MCV 88.1 MCH 29.5 MCHC 33.5 RDW 16.6 H Plt Count 251 MPV 9.2 Puncture Site pCO2 pO2 HCO3 ABG pH ABG Total CO2 ABG O2 Saturation ABG Base Excess ABG Hemoglobin ABG Carboxyhemoglobin POC ABG HHb (Measured) ABG Methemoglobin Reji Test A-a O2 Difference Respiratory Index Hgb O2 Saturation Liter Flow FiO2 Sodium Potassium Chloride Carbon Dioxide Anion Gap BUN Creatinine Est GFR ( Amer) Est GFR (Non-Af Amer) POC Glucose (mg/dL) 64 L 77 Random Glucose Calcium Fluid Type 07/15/17 07/15/17 07/15/17 07:34 08:20 09:16 WBC RBC Hgb Hct MCV MCH MCHC RDW Plt Count MPV Puncture Site Rra pCO2 47 H pO2 182 H HCO3 36.6 H ABG pH 7.53 H ABG Total CO2 40.7 H ABG O2 Saturation 100.4 H ABG Base Excess 15.0 H ABG Hemoglobin 9.5 L ABG Carboxyhemoglobin 2.4 H POC ABG HHb (Measured) -0.4 L ABG Methemoglobin 1.9 Reji Test Pos A-a O2 Difference -13.0 Respiratory Index -0.1 Hgb O2 Saturation 96.2 Liter Flow 3.0 FiO2 32.0 Sodium 124 L Potassium 3.3 L Chloride 84 L Carbon Dioxide 35 H Anion Gap 9 L BUN 18 H Creatinine 0.7 Est GFR ( Amer) > 60 Est GFR (Non-Af Amer) > 60 POC Glucose (mg/dL) 91 Random Glucose 74 Calcium 7.9 L Fluid Type 07/15/17 07/15/17 07/15/17 09:23 11:33 13:05 WBC RBC Hgb Hct MCV MCH MCHC RDW Plt Count MPV Puncture Site pCO2 pO2 HCO3 ABG pH ABG Total CO2 ABG O2 Saturation ABG Base Excess ABG Hemoglobin ABG Carboxyhemoglobin POC ABG HHb (Measured) ABG Methemoglobin Reji Test A-a O2 Difference Respiratory Index Hgb O2 Saturation Liter Flow FiO2 Sodium Potassium Chloride Carbon Dioxide Anion Gap BUN Creatinine Est GFR ( Amer) Est GFR (Non-Af Amer) POC Glucose (mg/dL) 95 131 H Random Glucose Calcium Fluid Type Synovial fluid Assessment & Plan (1) Effusion, left knee Assessment and Plan: s/p aspiration r/o gout, r/o septic arthritis 85cc slightly cloudy yellow fluid aspirated for cx/gram stain, fluid cell count , crystals d/w Dr. Olivia, will follow up results Addendum 4:30pm +CPPD wbc 15k consistent with pseudogout not consistent with septic arthritis medical mgmt PT/OT WBAT doppers neg DVT d/w Dr. Olivia, agrees with abvoe Status: Acute (2) Degenerative joint disease of knee, left Status: Chronic Radiology Interpretation - Radiology Interpretation #2 Interpretation: Patient Name / ID : KAIDEN SAENZ / [id number] Exam Date : 07/12/2017 18:44:05 ( Approved ) Study Comment : Sex / Age : F / 72Y Creator : Scott Rudolph MD Dictator : Scott Rudolph MD Personal Health Coach : Sales Representative [employer] : Scott Rudolph MD Approver2 : Report Date : 07/13/2017 07:11:31 My Comment : Left knee three views History: Pain. Comparison: None available. Findings: Large left knee joint effusion. Moderate narrowing of the medial compartment of the femorotibial joint space. Mild narrowing of the patellofemoral compartment. Vascular calcifications. Surgical clips noted. Curvilinear sclerosis seen in the medial proximal tibia extending to the midline. This is of uncertain clinical etiology; however, osseous injury cannot entirely be excluded on the basis of these images. Soft tissue swelling seen within the medial soft tissues. Impression: Large left knee joint effusion. Curvilinear sclerosis seen in the medial proximal tibia extending to the midline. This is of uncertain clinical etiology; however, osseous injury cannot entirely be excluded on the basis of these images. If pain persists, correlation with MRI may be helpful. Moderate narrowing of the medial compartment of the femorotibial joint space. Mild narrowing of the patellofemoral compartment. Vascular calcifications. Surgical clips noted. Soft tissue swelling seen within the medial soft tissues. Patient Name / ID : KAIDEN SAENZ / [id number] Exam Date : 07/12/2017 18:43:52 ( Approved ) Study Comment : Sex / Age : F / 72Y Creator : Scott Rudolph MD Dictator : Scott Rudolph MD Personal Health Coach : Sales Representative [employer] : Scott Rudolph MD Approver2 : Report Date : 07/13/2017 07:06:22 My Comment : Left hip two views History: Hip pain. Comparison: None available. Findings: Left hip: Moderate narrowing of the left hip joint space with subchondral sclerosis. No evidence of acute displaced fracture or dislocation of the left hip. Evaluation of the remainder of the bony pelvis demonstrates some productive change and or mild cortical irregularity at the superior aspect of the pubic symphysis which may represent an osteitis pubis. Clinical correlation. Severe degenerative changes of the right hip joint space with joint space narrowing and subchondral sclerosis. Prominent degenerative changes in the lower lumbar spine. Sacrum is obscured by overlying bowel gas. Vascular calcifications noted. Impression: Moderate narrowing of the left hip joint space with subchondral sclerosis. Evaluation of the remainder of the bony pelvis demonstrates some productive change and or mild cortical irregularity at the superior aspect of the pubic symphysis which may represent an osteitis pubis. Clinical correlation. Severe degenerative changes of the right hip joint space with joint space narrowing and subchondral sclerosis. Prominent degenerative changes in the lower lumbar spine. If pain persists, consider MRI.
[2017-07-15 14:42] LABS: FLUID CRYSTALS POSITIVE (NEGATIVE)
[2017-07-15 14:44] LABS: CRYSTAL TYPE CalciumPyrophosphate
[2017-07-15 14:52] LABS: SF GROSS APPEARANCE CLOUDY (CLEAR)
[2017-07-15 14:53] LABS: SYNOVIAL FLUID MONO/MACROPHAGE 1 % (0-0)
--- NOTE | 2017-07-15 15:20 | VASCLAB ---
PROCEDURE: Left Lower Extremity Venous Duplex Exam. HISTORY: swelling and pain to left leg PRIORS: None. TECHNIQUE: Left common femoral, femoral, popliteal and posterior tibial, peroneal and great saphenous veins were evaluated. Flow was assessed with color Doppler, compressibility, assessment of phasic flow and augmentation response. Report prepared by AMERICA Flynn, RVT FINDINGS: LEFT: 1. Common Femoral Vein: 1.1. Compressibility - Fully compressible: Thrombus - None : Flow - Phasic: Augmentation -Normal: Reflux - None. 2. Femoral Vein: 2.1. Compressibility - Fully compressible: Thrombus - None: Flow - Phasic: Augmentation -Normal: Reflux - None. 3. Popliteal Vein: 3.1. Compressibility - Fully compressible: Thrombus - None: Flow - Phasic: Augmentation -Normal: Reflux - None. 4. Posterior Tibial Vein: 4.1. Compressibility - Fully compressible: Thrombus - None: Flow - Phasic: Augmentation -Normal: Reflux - None. 5. Peroneal Vein: 5.1. Compressibility - Fully compressible: Thrombus - None: Flow - Phasic: Augmentation -Normal: Reflux - None. OTHER FINDINGS: IMPRESSION: No evidence of deep vein thrombosis of the left lower extremity with excellent venous flow. Normal valve function noted of the left side. Left great saphenous vein has been removed. Normal venous flow noted in the right common femoral vein.
--- NOTE | 2017-07-15 16:34 | CP.PCM.PN ---
Subjective - Date & Time of Evaluation Date of Evaluation: 07/15/17 Time of Evaluation: 08:30 - Subjective Subjective: Patient was seen and examined at bedside today, consulted for shortness of breath and pleural effusion. Patient lying in bed, very lethargic and not responding to verbal questions. As per nursing staff, she did not sleep well last night but has been able to fall asleep this morning. Patient seem dehydrated. Objective - Vital Signs/Intake and Output Vital Signs (last 24 hours): Temp Pulse Resp BP Pulse Ox 98.6 F 74 18 128/77 100 07/15/17 15:03 07/15/17 15:03 07/15/17 15:03 07/15/17 15:03 07/15/17 15:03 Intake and Output: 07/15/17 07/15/17 06:59 18:59 Intake Total 400 270 Output Total 200 Balance 400 70 - Medications Medications: Current Medications Acetaminophen (Tylenol 325mg Tab) 650 mg PO Q8H PRN PRN Reason: Pain, Mild (1-3) Last Admin: 07/14/17 13:04 Dose: 650 mg Enoxaparin Sodium (Lovenox) 69 mg SC DAILY [facility] Home Med (Etanercept [Enbrel]) 50 mg SC QWK [facility] Insulin Aspart (Novolog) 0 unit SC ACHS [facility] PRN Reason: Protocol Last Admin: 07/15/17 12:32 Dose: Not Given Losartan Potassium (Cozaar) 25 mg PO DAILY [facility] Last Admin: 07/15/17 10:02 Dose: 25 mg Memantine (Namenda) 10 mg PO BID [facility] Last Admin: 07/15/17 10:02 Dose: 10 mg Metformin HCl (Glucophage) 1,000 mg PO DAILY [facility] Last Admin: 07/15/17 10:03 Dose: Not Given Metoprolol Succinate (Toprol Xl) 50 mg PO DAILY [facility] Last Admin: 07/15/17 10:02 Dose: 50 mg Nitroglycerin (Nitro-Dur 0.2 Mg/Hr Patch) 1 patch TD DAILY [facility] Last Admin: 07/15/17 10:00 Dose: 1 patch Nitroglycerin (Nitrostat Sl Tab) 0.4 mg SL Q5M PRN PRN Reason: chest pain Pantoprazole Sodium (Protonix Ec Tab) 40 mg PO DAILY [facility] Last Admin: 01/29/18 10:01 Dose: 40 mg Potassium Chloride (K-Dur 20 Meq Er Tab) 20 meq PO DAILY [facility] Last Admin: 07/15/17 10:02 Dose: 20 meq Rosuvastatin Calcium (Crestor) 2.5 mg PO HS [facility] Last Admin: 07/14/17 21:21 Dose: 2.5 mg Sitagliptin Phosphate (Januvia) 50 mg PO DAILY [facility] Last Admin: 07/15/17 10:04 Dose: Not Given Tramadol HCl (Ultram) 50 mg PO Q8H PRN PRN Reason: Pain, moderate (4-7) Last Admin: 07/15/17 16:01 Dose: 50 mg - Labs Labs: 07/15/17 07:34 07/15/17 07:34 PT 14.2 SECONDS (9.7-12.2) H 07/12/17 19:18 INR 1.3 07/12/17 19:18 APTT 41 SECONDS (21-34) H 07/12/17 19:18 - Head Exam Head Exam: ATRAUMATIC, NORMOCEPHALIC - ENT Exam ENT Exam: Mucous Membranes Moist - Respiratory Exam Respiratory Exam: Decreased Breath Sounds - Cardiovascular Exam Cardiovascular Exam: REGULAR RHYTHM - GI/Abdominal Exam GI & Abdominal Exam: Soft, Normal Bowel Sounds Assessment and Plan (1) Pleural effusion Assessment & Plan: Thoracentesis by BON Ortega for metabolic alkalosis Status: Acute (2) CHF (congestive heart failure) Status: Acute
--- NOTE | 2017-07-15 18:54 | PN ---
DATE: SUBJECTIVE: The patient is a 72-year-old female. The patient was seen and examined at the bedside. Lethargic, arousable. Actually, according to nursing staff, the patient cannot sleep last night. The patient slept early in the morning and early in the morning, she was lethargic that they were almost calling rapid response, but later on she woke up. No complaint. No fever. No chills. No headache or dizziness. The patient is not a very good historian. PHYSICAL EXAMINATION: VITAL SIGNS: Temperature 98.6, pulse 74, respiratory rate 18 and blood pressure 120/77, pulse oximetry 100. HEENT: Head normocephalic, atraumatic. Eyes PERRLA. Extraocular muscles intact. Conjunctivae clear. Nose patent. Mucous membrane moist. NECK: Supple. No carotid bruit. No JVD or thyromegaly. CHEST: Bilaterally symmetrical. HEART: S1 and S2 positive. LUNGS: Clear to auscultation. ABDOMEN: Soft. Bowel sounds positive. No organomegaly. EXTREMITIES: No edema. No cyanosis. NEUROLOGICAL: The patient is sleepy, arousable. Moving all 4 extremities. No focal deficits. LABORATORY DATA: Sodium 125, potassium 3.3, BUN 18, creatinine 0.7, glucose 74, chloride 84, carbon dioxide 35. MEDICATIONS: Acetaminophen, Lovenox, Novolog, Cozaar, Namenda, Glucophage, Toprol, potassium, nitroglycerin, Protonix, K-Dur, Januvia, Tramadol. ASSESSMENT AND PLAN: Ms. Alcira Mobley, 72-year-old lady with hyponatremia, hypokalemia, hypochloremia, renal insufficiency, looks dehydrated, pleural effusion, thoracentesis by Interventional Radiology. Hold Lasix for metabolic alkalosis and for dehydration and congestive heart failure. Reviewed Dr. Jayesh Gonzalez's notes. Shortness of breath is better. Still has pleural effusion. Orthopedics saw the patient and a knee arthrocentesis done by Dr. Olivia. Seen by Dr. Shilo Rowan. Gastrointestinal and deep venous thrombosis prophylaxis. Diabetes mellitus. The patient has systolic dysfunction with acute on chronic heart failure. Plan was to continue Lasix, but due to dehydration, hold the Lasix. Coronary artery disease, coronary artery bypass graft, nonischemic cardiomyopathy, hypertension. Dyspnea is improving, though slowly. We will follow up. Kallie Jordan MD
[2017-07-15] MEDS: Rosuvastatin Calcium 2.5 mg Tab PO SCH (21:24)
[2017-07-16] MEDS: (Novolog) Insulin Aspart, Recombinant 100 u/ml 10 ml vial SC SCH ×4 (08:06→22:04)
[2017-07-16 09:36] LABS: HEMOGLOBIN 9.6 g/dL (11.0-16.0); MEAN CORPUSCULAR HGB CONC 33.3 g/dL (33.0-37.0); NRBC % 0.1 % (0.0-2.0)
[2017-07-16 09:40] LABS: ALB/GLOB RATIO 0.6 (1.0-2.1); ALBUMIN 2.6 g/dL (3.5-5.0); ALT/SGPT 17 U/L (9-52); AST/SGOT 33 U/L (14-36); BLOOD UREA NITROGEN 17 mg/dL (7-17); GFR AFRICAN-AMERICAN > 60; GFR NON-AFRICAN AMERICAN > 60
[2017-07-16 09:41] LABS: INR 1.2; PROTHROMBIN TIME 13.1 SECONDS (9.7-12.2)
[2017-07-16 09:44] LABS: BASO % 0.4 % (0.0-2.0); EOS # 0.1 K/uL (0.0-0.7); EOS % 1.3 % (0.0-4.0); LYMPH # 0.4 K/uL (1.0-4.3); LYMPH % 8.8 % (20.0-40.0); MEAN CELL VOLUME 88.1 fL (81.0-99.0); MEAN CORPUSCULAR HEMOGLOBIN 29.4 pg (27.0-31.0); MONO # 0.6 K/uL (0.0-0.8); MONO % 12.6 % (0.0-10.0); NEUT # 3.5 K/uL (1.8-7.0); NEUT % 76.9 % (50.0-75.0); PLATELET COUNT 226 K/uL (130-400); RBC 3.27 Mil/uL (3.80-5.20); RED CELL DISTRIBUTION WIDTH 16.7 % (11.5-14.5); WHITE BLOOD COUNT 4.5 K/uL (4.8-10.8)
[2017-07-16] MEDS: Potassium Chloride 20 mEq ER Tab PO SCH (10:00)
[2017-07-16] MEDS: Enoxaparin 80 mg Syringe SC SCH (10:00)
[2017-07-16] MEDS: Metoprolol Succinate 50 mg XL Tab PO SCH (10:00)
[2017-07-16] MEDS: Nitroglycerin 0.2 mg/hr Top Patch TD SCH (10:00)
[2017-07-16] MEDS: Pantoprazole 40 mg EC Tab PO SCH (10:00)
[2017-07-16 10:34] LABS: EOSINOPHIL 1 % (0-4); LYMPHOCYTE 7 % (20-40); MONOCYTE 7 % (0-10); NEUTROPHIL 85 % (50-75); PLATELET ESTIMATE NORMAL (NORMAL); TOTAL CELLS COUNTED 100
[2017-07-16 10:35] LABS: ANISOCYTOSIS SLIGHT; HYPOCHROMIC SLIGHT; POLYCHROMIC SLIGHT; TARGET CELLS SLIGHT
--- NOTE | 2017-07-16 12:52 | PCM.SURG1 ---
Surgeon's Initial Post Op Note - Surgeon's Notes Surgeon: Jose Martin John MD Rv Body Mechanic: NONE Type of Anesthesia: Local Pre-Operative Diagnosis: Right pleura effusion Operative Findings: US showed a small right effusion Post-Operative Diagnosis: Right pleural effusion Operation Performed: US guided right thoracentesis Specimen/Specimens Removed: 500 cc of straw colored fluid Estimated Blood Loss: EBL {In ML}: 0 Blood Products Given: N/A Drains Used: No Drains Post-Op Condition: Fair Date of Surgery/Procedure: 07/16/17 Time of Surgery/Procedure: 12:45
--- NOTE | 2017-07-16 13:00 | US ---
PROCEDURE: Date of procedure: 07/16/2017 Procedure: 1. Ultrasound-guided Right thoracentesis, CPT 33646 Medications: 6cc 1% Lidocaine HISTORY: Right pleural effusion, shortness of breath TECHNIQUE: Following informed consent ,the Patients' right chest was marked. Procedure time-out was called, and the patient was placed in the sitting position and limited ultrasound showed a large right effusion. The patient's right back was prepped and draped in the usual sterile fashion. After the skin was anesthetized with lidocaine, a drainage catheter was advanced under ultrasound guidance into the pleural space. Ultrasound-guided thoracentesis was performed. A total of 500 cubic centimeters of straw-colored fluid removed without complication. A Xeroform dressing was applied. IMPRESSION: Ultrasound guided Right thoracentesis. There were no immediate complications.
[2017-07-16] MEDS: Lidocaine 5% Patch TD SCH (13:44)
[2017-07-16 14:34] LABS: BODY FLUID TYPE PLEURAL
[2017-07-16 15:21] LABS: BF GROSS APPEARANCE SL CLOUDY (CLEAR); BODY FLUID MONO/MACROPHAGE 6 % (0-0)
--- NOTE | 2017-07-16 16:24 | CP.PCM.PN ---
Subjective - Date & Time of Evaluation Date of Evaluation: 07/16/17 Time of Evaluation: 16:21 - Subjective Subjective: Patient much more awake and alert today. She is answering questions and gives history. She says this is the first time her knee is hurting and swollen like this. Denies swelling in her big toes. She says the jame in knee is severe. Objective - Vital Signs/Intake and Output Vital Signs (last 24 hours): Temp Pulse Resp BP Pulse Ox 98.0 F 60 20 126/77 100 07/16/17 08:14 07/16/17 12:04 07/16/17 08:14 07/16/17 08:14 07/16/17 12:04 Intake and Output: 07/16/17 07/16/17 06:59 18:59 Intake Total 400 Balance 400 - Medications Medications: Current Medications Acetaminophen (Tylenol 325mg Tab) 650 mg PO Q8H PRN PRN Reason: Pain, Mild (1-3) Last Admin: 07/16/17 16:05 Dose: 650 mg Enoxaparin Sodium (Lovenox) 69 mg SC DAILY [facility] Last Admin: 07/16/17 10:00 Dose: 69 mg Home Med (Etanercept [Enbrel]) 50 mg SC QWK [facility] Vancomycin/Sodium Chloride (Vancomycin 1 Gm/Ns 200 Ml) 1 gm in 200 mls @ 133.333 mls/hr IVPB Q12H [facility] Stop: 07/21/17 18:01 Insulin Aspart (Novolog) 0 unit SC ACHS [facility] PRN Reason: Protocol Last Admin: 07/16/17 12:18 Dose: Not Given Ketorolac Tromethamine (Toradol) 30 mg IVP STAT STA Stop: 07/16/17 16:20 Lidocaine (Lidoderm) 1 ea TD DAILY [facility] Last Admin: 07/16/17 13:44 Dose: 1 ea Losartan Potassium (Cozaar) 25 mg PO DAILY [facility] Last Admin: 07/16/17 10:00 Dose: 25 mg Memantine (Namenda) 10 mg PO BID [facility] Last Admin: 07/16/17 10:00 Dose: 10 mg Metformin HCl (Glucophage) 1,000 mg PO DAILY [facility] Last Admin: 07/16/17 09:59 Dose: 1,000 mg Metoprolol Succinate (Toprol Xl) 50 mg PO DAILY [facility] Last Admin: 07/16/17 10:00 Dose: 50 mg Nitroglycerin (Nitro-Dur 0.2 Mg/Hr Patch) 1 patch TD DAILY [facility] Last Admin: 07/16/17 10:00 Dose: 1 patch Nitroglycerin (Nitrostat Sl Tab) 0.4 mg SL Q5M PRN PRN Reason: chest pain Pantoprazole Sodium (Protonix Ec Tab) 40 mg PO DAILY [facility] Last Admin: 07/16/17 10:00 Dose: 40 mg Potassium Chloride (K-Dur 20 Meq Er Tab) 20 meq PO DAILY [facility] Last Admin: 07/16/17 10:00 Dose: 20 meq Rosuvastatin Calcium (Crestor) 2.5 mg PO HS [facility] Last Admin: 07/15/17 21:24 Dose: 2.5 mg Sitagliptin Phosphate (Januvia) 50 mg PO DAILY [facility] Last Admin: 07/16/17 09:59 Dose: 50 mg Tramadol HCl (Ultram) 50 mg PO Q8H PRN PRN Reason: Pain, moderate (4-7) Last Admin: 07/16/17 09:56 Dose: 50 mg - Labs Labs: 07/16/17 09:14 07/16/17 09:14 PT 13.1 SECONDS (9.7-12.2) H 07/16/17 09:14 INR 1.2 07/16/17 09:14 APTT 26 SECONDS (21-34) 07/16/17 09:14 - Extremities Exam Additional comments: Left knee: increased swelling since aspiration yesterday. Still warm, no erythema. Patient cries in pain with any attempts at moving knee (yesterday, she was much more lethargic and only complained of pain at end of aspiration) calves soft NT neg homans. +DP/PT pulses, no foot/ankle or right knee swelling noted Assessment and Plan (1) Pseudogout of left knee Assessment & Plan: case d/w Dr. Olivia, incl physical exam findings today +CPPD today, culture x 1 +S. aureus fluid analysis WBC gout 15k consistent with gout, not consistent with septic arthritis, afeb, no leukocytosis possible contaminant per Dr. Olivia, possible septic arthritis ID consult pending, pt now on vanco recommend NSAIDs, one dose toradol given now as pain not controlled will follow Status: Acute (2) Degenerative joint disease of knee, left Status: Chronic
--- NOTE | 2017-07-16 16:51 | CP.PCM.PN ---
Subjective - Date & Time of Evaluation Date of Evaluation: 07/16/17 Time of Evaluation: 15:00 - Subjective Subjective: Patient is a 72 year old female who was seen and examined at the bedside today. She is awake and alert; her mentation is much more improved from yesterday. She denies shortness of breath, but complains of left knee pain, status post arthrocentesis. She is on ultram for pain control. No fever, no chills, no headache, no dizziness. Patient status post thoracentesis 500 mL of straw-colored fluid removed Objective - Vital Signs/Intake and Output Vital Signs (last 24 hours): Temp Pulse Resp BP Pulse Ox 98.0 F 60 20 119/65 100 07/16/17 08:14 07/16/17 12:04 07/16/17 08:14 07/16/17 09:55 07/16/17 12:04 Intake and Output: 07/16/17 07/16/17 06:59 18:59 Intake Total 400 670 Balance 400 670 - Medications Medications: Current Medications Acetaminophen (Tylenol 325mg Tab) 650 mg PO Q8H PRN PRN Reason: Pain, Mild (1-3) Last Admin: 07/16/17 16:05 Dose: 650 mg Enoxaparin Sodium (Lovenox) 69 mg SC DAILY [facility] Last Admin: 07/16/17 10:00 Dose: 69 mg Home Med (Etanercept [Enbrel]) 50 mg SC QWK [facility] Vancomycin/Sodium Chloride (Vancomycin 1 Gm/Ns 200 Ml) 1 gm in 200 mls @ 133.333 mls/hr IVPB Q12H [facility] Stop: 07/21/17 18:01 Insulin Aspart (Novolog) 0 unit SC ACHS [facility] PRN Reason: Protocol Last Admin: 07/16/17 12:18 Dose: Not Given Lidocaine (Lidoderm) 1 ea TD DAILY [facility] Last Admin: 07/16/17 13:44 Dose: 1 ea Losartan Potassium (Cozaar) 25 mg PO DAILY [facility] Last Admin: 07/16/17 10:00 Dose: 25 mg Memantine (Namenda) 10 mg PO BID [facility] Last Admin: 07/16/17 10:00 Dose: 10 mg Metformin HCl (Glucophage) 1,000 mg PO DAILY [facility] Last Admin: 07/16/17 09:59 Dose: 1,000 mg Metoprolol Succinate (Toprol Xl) 50 mg PO DAILY [facility] Last Admin: 07/16/17 10:00 Dose: 50 mg Nitroglycerin (Nitro-Dur 0.2 Mg/Hr Patch) 1 patch TD DAILY [facility] Last Admin: 07/16/17 10:00 Dose: 1 patch Nitroglycerin (Nitrostat Sl Tab) 0.4 mg SL Q5M PRN PRN Reason: chest pain Pantoprazole Sodium (Protonix Ec Tab) 40 mg PO DAILY [facility] Last Admin: 07/16/17 10:00 Dose: 40 mg Potassium Chloride (K-Dur 20 Meq Er Tab) 20 meq PO DAILY [facility] Last Admin: 07/16/17 10:00 Dose: 20 meq Rosuvastatin Calcium (Crestor) 2.5 mg PO HS [facility] Last Admin: 07/15/17 21:24 Dose: 2.5 mg Sitagliptin Phosphate (Januvia) 50 mg PO DAILY [facility] Last Admin: 07/16/17 09:59 Dose: 50 mg Tramadol HCl (Ultram) 50 mg PO Q8H PRN PRN Reason: Pain, moderate (4-7) Last Admin: 07/16/17 09:56 Dose: 50 mg - Labs Labs: 07/16/17 09:14 07/16/17 09:14 PT 13.1 SECONDS (9.7-12.2) H 07/16/17 09:14 INR 1.2 07/16/17 09:14 APTT 26 SECONDS (21-34) 07/16/17 09:14 - Head Exam Head Exam: ATRAUMATIC, NORMOCEPHALIC - ENT Exam ENT Exam: Mucous Membranes Moist - Neck Exam Neck Exam: Normal Inspection - Respiratory Exam Respiratory Exam: Decreased Breath Sounds - Cardiovascular Exam Cardiovascular Exam: REGULAR RHYTHM - GI/Abdominal Exam GI & Abdominal Exam: Soft, Normal Bowel Sounds Assessment and Plan (1) Pleural effusion Assessment & Plan: status post thoracentesis 500 mL off fluid removed Fluid analysis Continue present treatmen Status: Acute (2) CHF (congestive heart failure) Status: Acute
[2017-07-16] MEDS: Vancomycin 1 gm/NS 200 ml 1 GM/200 ML BAG IVPB SCH (17:05)
--- NOTE | 2017-07-16 19:22 | CP.PCM.CON ---
History of Present Illness - History of Present Illness History of Present Illness: INFECTIOUS DISEASE CONSULTATION; PATIENT SEEN AND CHART REVIEWED. CONSULT DICTATED;07/16/17 DICTATION NUMBER# [id number]. . IMPRESSION; SEPTIC ARTHRITIS LEFT KNEE/WITH PSEUDOGOUT (STAPH.AUREUS +VE+CPPD ) R/O SBE. HX OF CABG /MVR. cONGESTIVE HEART FAILURE. S/P THORACENTESIS. lYMPHOCYTIC EFFUSION aTRIAL FIBRILLATION. DM-2 RHEUMATOID ARTHRITIS/OSTEOPOROSIS BY HISTORY. PLAN PANCULTURES. ESR CRP. START iv VANCOMYCIN 1 G EVERY 12 HOURLY WHILE AWAITING CULTURES PATIENT HAS HISTORY OF MITRAL VALVE REPLACEMENT. NEED TO CHECK 2-d ECHO RULE OUT VEGETATIONS. AWAIT CULTURES AND ADJUST ANTIBIOTICS. TREATMENT OF PSEUDOGOUT PER ORTHOPEDIC. CASE DISCUSSED WITH THE STAFF. Past Patient History - Infectious Disease Hx of Infectious Diseases: None - Past Medical History & Family History Past Medical History?: Yes - Past Social History Smoking Status: Never Smoked - CARDIAC Hx Atrial Fibrillation: Yes Hx Cardia Arrhythmia: Yes Hx Congestive Heart Failure: Yes Hx Hypercholesterolemia: Yes Hx Hypertension: Yes - PULMONARY Hx Chronic Obstructive Pulmonary Disease (COPD): Yes - NEUROLOGICAL Hx Dementia: Yes - HEENT Hx HEENT Problems: No - RENAL Hx Chronic Kidney Disease: No - ENDOCRINE/METABOLIC Hx Endocrine Disorders: Yes Hx Diabetes Mellitus Type 2: Yes - HEMATOLOGICAL/ONCOLOGICAL Hx Anemia: Yes - INTEGUMENTARY Hx Dermatological Problems: No - MUSCULOSKELETAL/RHEUMATOLOGICAL Hx Arthritis: Yes Hx Falls: No Hx Osteoporosis: Yes Hx Rheumatoid Arthritis: Yes - GASTROINTESTINAL Hx Gastrointestinal Disorders: Yes Hx Ulcer: Yes Other/Comment: appendectomy history of endoscopies. ventral hernia - GENITOURINARY/GYNECOLOGICAL Hx Sexually Transmitted Disorders: No - PSYCHIATRIC Hx Substance Use: No - SURGICAL HISTORY Hx Appendectomy: Yes Hx Coronary Artery Bypass Graft: Yes Hx Coronary Stent: Yes - ANESTHESIA Hx Anesthesia: Yes Hx Anesthesia Reactions: No Hx Malignant Hyperthermia: No Meds Allergies/Adverse Reactions: Allergies Allergy/AdvReac Type Severity Reaction Status Date / Time No Known Allergies Allergy Verified 07/12/17 18:07 - Medications Medications: Current Medications Acetaminophen (Tylenol 325mg Tab) 650 mg PO Q8H PRN PRN Reason: Pain, Mild (1-3) Last Admin: 07/16/17 16:05 Dose: 650 mg Enoxaparin Sodium (Lovenox) 69 mg SC DAILY [facility] Last Admin: 07/16/17 10:00 Dose: 69 mg Home Med (Etanercept [Enbrel]) 50 mg SC QWK [facility] Vancomycin/Sodium Chloride (Vancomycin 1 Gm/Ns 200 Ml) 1 gm in 200 mls @ 133.333 mls/hr IVPB Q12H [facility] Stop: 07/21/17 18:01 Last Admin: 07/16/17 17:05 Dose: 133.333 mls/hr Insulin Aspart (Novolog) 0 unit SC ACHS [facility] PRN Reason: Protocol Last Admin: 07/16/17 17:10 Dose: Not Given Lidocaine (Lidoderm) 1 ea TD DAILY [facility] Last Admin: 07/16/17 13:44 Dose: 1 ea Losartan Potassium (Cozaar) 25 mg PO DAILY [facility] Last Admin: 07/16/17 10:00 Dose: 25 mg Memantine (Namenda) 10 mg PO BID [facility] Last Admin: 07/16/17 17:05 Dose: 10 mg Metformin HCl (Glucophage) 1,000 mg PO DAILY [facility] Last Admin: 07/16/17 09:59 Dose: 1,000 mg Metoprolol Succinate (Toprol Xl) 50 mg PO DAILY [facility] Last Admin: 07/16/17 10:00 Dose: 50 mg Nitroglycerin (Nitro-Dur 0.2 Mg/Hr Patch) 1 patch TD DAILY [facility] Last Admin: 07/16/17 10:00 Dose: 1 patch Nitroglycerin (Nitrostat Sl Tab) 0.4 mg SL Q5M PRN PRN Reason: chest pain Pantoprazole Sodium (Protonix Ec Tab) 40 mg PO DAILY [facility] Last Admin: 07/16/17 10:00 Dose: 40 mg Potassium Chloride (K-Dur 20 Meq Er Tab) 20 meq PO DAILY [facility] Last Admin: 07/16/17 10:00 Dose: 20 meq Rosuvastatin Calcium (Crestor) 2.5 mg PO HS [facility] Last Admin: 07/15/17 21:24 Dose: 2.5 mg Sitagliptin Phosphate (Januvia) 50 mg PO DAILY [facility] Last Admin: 07/16/17 09:59 Dose: 50 mg Tramadol HCl (Ultram) 50 mg PO Q8H PRN PRN Reason: Pain, moderate (4-7) Last Admin: 07/16/17 09:56 Dose: 50 mg Results - Vital Signs Recent Vital Signs: Last Vital Signs Temp 97.8 F 07/16/17 16:00 Pulse 69 07/16/17 16:20 Resp 20 07/16/17 16:00 BP 122/77 07/16/17 16:00 Pulse Ox 96 07/16/17 16:00 - Labs Result Diagrams: 07/16/17 09:14 07/16/17 09:14 Labs: Laboratory Results - last 24 hr 07/15/17 07/16/17 07/16/17 21:40 06:36 09:14 WBC 4.5 L RBC 3.27 L Hgb 9.6 L Hct 28.8 L MCV 88.1 MCH 29.4 MCHC 33.3 RDW 16.7 H Plt Count 226 MPV 9.0 Neut % (Auto) 76.9 H Lymph % (Auto) 8.8 L [place] % (Auto) 12.6 H Eos % (Auto) 1.3 Baso % (Auto) 0.4 Neut # 3.5 Lymph # 0.4 L [place] # 0.6 Eos # 0.1 Baso # 0.0 Neutrophils % (Manual) 85 H Lymphocytes % (Manual) 7 L Monocytes % (Manual) 7 Eosinophils % (Manual) 1 Platelet Estimate Normal Polychromasia Slight Hypochromasia (manual) Slight Anisocytosis (manual) Slight Target Cells Slight PT INR APTT Sodium Potassium Chloride Carbon Dioxide Anion Gap BUN Creatinine Est GFR ( Amer) Est GFR (Non-Af Amer) POC Glucose (mg/dL) 101 83 Random Glucose Calcium Total Bilirubin AST ALT Alkaline Phosphatase Total Protein Albumin Globulin Albumin/Globulin Ratio Fluid Source Fluid Appearance Fluid WBC Fluid RBC Fluid Tot Cell Count Fluid Neutrophils Fluid Lymphocytes Fld Monocyte/Macrophag Fluid Comment 07/16/17 07/16/17 07/16/17 09:14 09:14 11:27 WBC RBC Hgb Hct MCV MCH MCHC RDW Plt Count MPV Neut % (Auto) Lymph % (Auto) [place] % (Auto) Eos % (Auto) Baso % (Auto) Neut # Lymph # [place] # Eos # Baso # Neutrophils % (Manual) Lymphocytes % (Manual) Monocytes % (Manual) Eosinophils % (Manual) Platelet Estimate Polychromasia Hypochromasia (manual) Anisocytosis (manual) Target Cells PT 13.1 H INR 1.2 APTT 26 Sodium 124 L Potassium 3.9 Chloride 82 L Carbon Dioxide 38 H Anion Gap 7 L BUN 17 Creatinine 0.6 L Est GFR ( Amer) > 60 Est GFR (Non-Af Amer) > 60 POC Glucose (mg/dL) 93 Random Glucose 83 Calcium 8.0 L Total Bilirubin 0.8 AST 33 ALT 17 Alkaline Phosphatase 121 Total Protein 7.4 Albumin 2.6 L Globulin 4.7 H Albumin/Globulin Ratio 0.6 L Fluid Source Fluid Appearance Fluid WBC Fluid RBC Fluid Tot Cell Count Fluid Neutrophils Fluid Lymphocytes Fld Monocyte/Macrophag Fluid Comment 07/16/17 07/16/17 07/16/17 14:30 16:31 16:33 WBC RBC Hgb Hct MCV MCH MCHC RDW Plt Count MPV Neut % (Auto) Lymph % (Auto) [place] % (Auto) Eos % (Auto) Baso % (Auto) Neut # Lymph # [place] # Eos # Baso # Neutrophils % (Manual) Lymphocytes % (Manual) Monocytes % (Manual) Eosinophils % (Manual) Platelet Estimate Polychromasia Hypochromasia (manual) Anisocytosis (manual) Target Cells PT INR APTT Sodium Potassium Chloride Carbon Dioxide Anion Gap BUN Creatinine Est GFR ( Amer) Est GFR (Non-Af Amer) POC Glucose (mg/dL) 64 L 69 Random Glucose Calcium Total Bilirubin AST ALT Alkaline Phosphatase Total Protein Albumin Globulin Albumin/Globulin Ratio Fluid Source Pleural Fluid Appearance Sl cloudy Fluid WBC 532.0 H Fluid RBC 465.0 H Fluid Tot Cell Count TEST NOT PERFORMED Fluid Neutrophils 7.0 H Fluid Lymphocytes 87.0 H Fld Monocyte/Macrophag 6 H Fluid Comment 07/16/17 07/16/17 16:53 17:37 WBC RBC Hgb Hct MCV MCH MCHC RDW Plt Count MPV Neut % (Auto) Lymph % (Auto) [place] % (Auto) Eos % (Auto) Baso % (Auto) Neut # Lymph # [place] # Eos # Baso # Neutrophils % (Manual) Lymphocytes % (Manual) Monocytes % (Manual) Eosinophils % (Manual) Platelet Estimate Polychromasia Hypochromasia (manual) Anisocytosis (manual) Target Cells PT INR APTT Sodium Potassium Chloride Carbon Dioxide Anion Gap BUN Creatinine Est GFR ( Amer) Est GFR (Non-Af Amer) POC Glucose (mg/dL) 66 94 Random Glucose Calcium Total Bilirubin AST ALT Alkaline Phosphatase Total Protein Albumin Globulin Albumin/Globulin Ratio Fluid Source Fluid Appearance Fluid WBC Fluid RBC Fluid Tot Cell Count Fluid Neutrophils Fluid Lymphocytes Fld Monocyte/Macrophag Fluid Comment
[2017-07-16] MEDS: Rosuvastatin Calcium 2.5 mg Tab PO SCH (21:22)
--- NOTE | 2017-07-17 02:50 | PN ---
DATE: SUBJECTIVE: Patient is 72-year-old female. Patient is seen and examined on bedside. Looking comfortable, much awake and alert as compared to previous days. Shortness of breath is better, no chest pain. But complaining about left knee pain status post thoracentesis, getting pain medication. Shortness of breath is better after thoracentesis. No fever, no chills, no hematuria, no hematochezia. PHYSICAL EXAMINATION: VITAL SIGNS: Temperature 98, pulse 60, respiratory rate 20, blood pressure 119/65, pulse oximetry 100. HEENT: Head: Normocephalic, atraumatic. Eyes: PERRLA. Extraocular movements are intact. Conjunctivae clear. Nose patent. Mucous membrane moist. NECK: Supple. No carotid bruit. No JVD or thyromegaly. CHEST: Bilaterally symmetrical. HEART: S1, S2 positive. LUNGS: Clear to auscultation. ABDOMEN: Soft. Bowel sounds are present. No organomegaly. EXTREMITIES: No edema, no cyanosis except that left knee is tender. NEUROLOGICAL: Patient is more awake and alert. Moving all four extremities. MEDICATIONS: Tylenol, Lovenox, insulin, Lidoderm, Namenda, Glucophage, metoprolol, nitroglycerin, Protonix, K-Dur, Crestor, Januvia, tramadol. LABORATORY DATA: White blood cells 4.5, hemoglobin 9.6, hematocrit 28.8, platelet 236. Sodium 124, potassium 3.6, BUN 17, creatinine 0.6, glucose 83. ASSESSMENT AND PLAN: Ms. Alcira Mobley is a 72-year-old lady with leukopenia, anemia, hyponatremia, hypochloremia, status post thoracentesis, 500 mL of straw-colored fluid removed, status post arthrocentesis, congestive heart failure. Seen by Dr. Immanuel Alvarez - Director [employer], and Dr. Mejia Avina; but I do not know the planning of Dr. Mejia Avina; I tried to see her consultation, but there is no plan. Seen by Dr. Leander Velasquez. Pseudogout of the left knee. Patient's orthopedist is Dr. Olivia. Calcium pyrophosphate dihydrate deposition is positive. Staphylococcus aureus positive. Looks like patient has gouty arthritis, more consistent with a septic arthritis, possibly contamination as per Dr. Corwin, possibly septic arthritis. Waiting for Infectious Disease input. Started nonsteroidal antiinflammatory drug, one dose of Toradol given by the orthopedist. Patient was seen by Dr. Shilo Rowan for congestive heart failure. Physical therapy, out of bed. We will follow. Kallie Jordan MD
[2017-07-17] MEDS: Vancomycin 1 gm/NS 200 ml 1 GM/200 ML BAG IVPB SCH (05:41)
[2017-07-17] MEDS: (Novolog) Insulin Aspart, Recombinant 100 u/ml 10 ml vial SC SCH ×4 (07:51→21:23)
[2017-07-17 08:29] LABS: BASO % 0.8 % (0.0-2.0); EOS # 0.1 K/uL (0.0-0.7); EOS % 1.9 % (0.0-4.0); HEMOGLOBIN 9.5 g/dL (11.0-16.0); LYMPH # 0.2 K/uL (1.0-4.3); LYMPH % 4.6 % (20.0-40.0); MEAN CELL VOLUME 89.6 fL (81.0-99.0); MEAN CORPUSCULAR HEMOGLOBIN 29.7 pg (27.0-31.0); MEAN CORPUSCULAR HGB CONC 33.2 g/dL (33.0-37.0); MEAN PLATELET VOLUME 9.6 fL (7.2-11.7); MONO # 0.4 K/uL (0.0-0.8); MONO % 10.3 % (0.0-10.0); NEUT # 3.6 K/uL (1.8-7.0); NEUT % 82.4 % (50.0-75.0); PLATELET COUNT 218 K/uL (130-400); RBC 3.21 Mil/uL (3.80-5.20); WHITE BLOOD COUNT 4.3 K/uL (4.8-10.8)
[2017-07-17 09:01] LABS: ALB/GLOB RATIO 0.6 (1.0-2.1); ALBUMIN 2.6 g/dL (3.5-5.0); ALT/SGPT 17 U/L (9-52); AST/SGOT 33 U/L (14-36); BLOOD UREA NITROGEN 23 mg/dL (7-17); CALCIUM 7.9 mg/dl (8.6-10.4); GFR AFRICAN-AMERICAN > 60; GFR NON-AFRICAN AMERICAN 55
--- NOTE | 2017-07-17 09:52 | CON ---
DATE: INFECTIOUS DISEASE CONSULTATION LOCATION: The patient is in room 558. REQUESTED BY: Dr. Jordan. DICTATION DONE BY: Mejia Avina MD. REASON FOR CONSULTATION: Positive cultures of the left knee for Staph aureus and septic arthritis with history of CHF, leg pain and elevated D-dimer. HISTORY OF PRESENT ILLNESS: The patient is a 72-year-old female with past medical history of multiple medical problems including CHF; ischemic cardiomyopathy, status post CABG with history of mitral valve replacement, COPD, diabetes mellitus, hypertension, hypercholesterolemia, rheumatoid arthritis, osteoporosis who was admitted on 07/12/2017 with complaints of left leg pain and swelling, worsening for the past few days prior to admission. Also, reported dyspnea and fluid in the lungs. The patient was recently admitted for CHF. The patient presently denies any fever or chills and denies any nausea or vomiting, abdominal pain or weakness. The patient had right thoracentesis performed because of fluid on the right side consistent with lymphocytic effusion, consistent mostly for CHF. The patient also had orthopedic consult for swelling and pain of the left knee. The knee was aspirated and synovial fluid showed 15,816 WBCs with 3800 RBCs, 97% neutrophils, also it was positive for calcium pyrophosphate crystals consistent with pseudogout. Today, cultures of the fluid aspirate from the knee was positive for Staph aureus. Infectious disease consultation, therefore, requested by Dr. Jordan. History obtained mainly from the chart as well as from the staff as the patient is unable to give much details. The patient is able to answer yes and no to simple questions. PAST MEDICAL HISTORY: As above, history of ischemic cardiomyopathy, CHF, cardiac arrhythmias, COPD, diabetes mellitus, hypertension, hypercholesterolemia, osteoporosis, rheumatoid arthritis. PAST SURGICAL HISTORY: Consists of appendicectomy, CABG, history of coronary stent, and history of mitral valve replacement as noted per chart. FAMILY HISTORY: Unremarkable. SOCIAL HISTORY: History of smoking, but the patient unable to give details. Denies history of alcohol use or substance abuse. IMMUNIZATIONS: As noted. The patient is not up to date on influenza or pneumococcal vaccination. REVIEW OF SYSTEMS: As per history and physical. Presently, just complains of left knee pain. Also, complains of some shortness of breath on exertion, but presently comfortably lying in the bed. GI and is unremarkable. INDEXER, difficult to evaluate, the patient forgetful and possibly early dementia. PHYSICAL EXAMINATION GENERAL: The patient is awake, but confused. VITAL SIGNS: Presently afebrile, blood pressure 131/77, respirations 18, pulse of 64, pulse ox was 100% on room air, temperature 98.7. HEENT: Pupils equal, reactive to light and accommodation. Extraocular movements are full. Fundus not well visualized. Sclerae nonicteric. Conjunctivae normal. JVP not elevated. NECK: Appears to be supple. LUNGS: Some diminished breath sounds at the bases, a few rales at the left base. CARDIOVASCULAR SYSTEM: S1, S2. Regular rhythm. No murmur or gallop. ABDOMEN: Soft. Ventral hernia present, reducible; scar of previous surgery noted in mid abdomen. EXTREMITIES: Left knee swollen with normal range of motion. Pulses are present. Left knee with a dressing in place. Warm to touch. Positive effusion. LABORATORY DATA: WBC is 4.5, H&H is 9.6 and 28.8, platelets 226,000, creatinine of 0.6, BUN of 17. Sodium 124. Liver function test normal. Albumin is 2.6. Pleural fluid cloudy. WBC 532, RBC 465, 87% lymphs, 7% neutrophils. Cultures are pending. Synovial fluid as reported; 01993 WBCs, 3800 RBCs, 97% neutrophils, positive crystals for CPDD. Positive for pseudogout. IMPRESSION 1. Pseudogout ,left knee with possible septic arthritis with Staph aureus. Final cultures are pending. 2. History of coronary artery bypass graft and mitral valve replacement with stents. 3. Congestive heart failure and ischemic cardiomyopathy, status post right thoracentesis. Pleural fluid consistent with congestive heart failure. 4. Atrial fibrillation. 6. Ventral hernia. 7. Diabetes mellitus type 2. 8. History of rheumatoid arthritis and osteoporosis. PLAN: Pancultures, start IV vancomycin 1 g q. 12 hourly for now. Did get vancomycin trough levels prior to the fourth dose. Follow up cultures. To adjust antibiotics. Treatment of pseudogout with nonsteroidals and questionably colchicine as per Orthopedics. We will check 2D echo to rule out any vegetations. The patient has history of mitral valve replacement and also stents in place. We will follow the cultures and made recommendations as needed. Thank you very much for allowing me to participate in the care of your patient. We will follow along with you. Mejia Avina MD [facility] # [phone]
[2017-07-17] MEDS: Lidocaine 5% Patch TD SCH (10:13)
[2017-07-17] MEDS: Pantoprazole 40 mg EC Tab PO SCH (10:16)
[2017-07-17] MEDS: Potassium Chloride 20 mEq ER Tab PO SCH (10:16)
[2017-07-17] MEDS: Metoprolol Succinate 50 mg XL Tab PO SCH (10:16)
[2017-07-17] MEDS: Enoxaparin 80 mg Syringe SC SCH (10:17)
[2017-07-17] MEDS: Nitroglycerin 0.2 mg/hr Top Patch TD SCH (10:17)
[2017-07-17 11:04] LABS: BANDS 2 % (0-2); EOSINOPHIL 1 % (0-4); LYMPHOCYTE 8 % (20-40); MONOCYTE 9 % (0-10); MYELOCYTE 2 % (0-0); NEUTROPHIL 78 % (50-75); TOTAL CELLS COUNTED 100
[2017-07-17 11:05] LABS: ANISOCYTOSIS SLIGHT; LARGE PLATELETS PRESENT; PLATELET ESTIMATE NORMAL (NORMAL)
--- NOTE | 2017-07-17 13:24 | CP.PCM.PN ---
Subjective - Date & Time of Evaluation Date of Evaluation: 07/17/17 Time of Evaluation: 13:24 - Subjective Subjective: CHIEF COMPLAINTS TODAY : afebrile, Awake and alert c/o pain left knee ROS. HEENT : N. Resp : No SOB wheezing, cough Cardio : No CP, PND orthopnea GI : No abd. 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 Musculoskel : LEFT KNEE SWOLLEN AND WARM, WITH EFFUSION. Ext. : Pedal pulses intact, no edema or calf pain Derm : N Psych : N. PE. Pt. is alert awake in no distress. V.S As noted in the chart Head ,ear nose,throat and eyes : Normal. Neck : Supple with normal carotids. Lungs: Clear air entry. Heart : S1 & S2 normal . . No murmur. S4 + Abd : Soft non tender with normal bowel sounds. Neuro : Moves all ext. with no localized deficit. Ext : intact pulses. Neg. calf tenderness LEFT KNEE SWOLLEN AND WARM, WITH EFFUSION. TENDERNESS ON PALPATION. Derm : No rashes or decubitus ulcer. Radiology/Labs LEFT KNEE ASPIRATE +VE MSSA.+VE CPPD CRYSTALS.. ESR 127 ,CRP >15 CREAT 1.0/bun 23 LFTS N Asssessment : IMPRESSION; SEPTIC ARTHRITIS LEFT KNEE/WITH PSEUDOGOUT (STAPH.AUREUS +VE+CPPD ) R/O SBE. HX OF CABG /MVR. cONGESTIVE HEART FAILURE. S/P THORACENTESIS. lYMPHOCYTIC EFFUSION aTRIAL FIBRILLATION. DM-2 RHEUMATOID ARTHRITIS/OSTEOPOROSIS BY HISTORY. PLAN DC iv VANCOMYCIN PATIENT ASPIRATES MSSA. sTART iv aNCEF 2 G iv PIGGYBACK EVERY 8 HOURLY. PATIENT HAS HISTORY OF MITRAL VALVE REPLACEMENT. 2-D ECHO RULE OUT VEGETATIONS.- PENDING TREATMENT OF PSEUDOGOUT PER ORTHOPEDIC. Objective - Vital Signs/Intake and Output Vital Signs (last 24 hours): Temp Pulse Resp BP Pulse Ox 97.7 F 57 L 20 105/70 96 07/17/17 08:41 07/17/17 08:41 07/17/17 08:41 07/17/17 08:41 07/17/17 08:41 Intake and Output: 07/17/17 07/17/17 06:59 18:59 Intake Total 850 Balance 850 - Medications Medications: Current Medications Acetaminophen (Tylenol 325mg Tab) 650 mg PO Q8H PRN PRN Reason: Pain, Mild (1-3) Last Admin: 07/17/17 00:55 Dose: 650 mg Enoxaparin Sodium (Lovenox) 69 mg SC DAILY [facility] Last Admin: 07/17/17 10:17 Dose: 69 mg Home Med (Etanercept [Enbrel]) 50 mg SC QWK [facility] Vancomycin/Sodium Chloride (Vancomycin 1 Gm/Ns 200 Ml) 1 gm in 200 mls @ 133.333 mls/hr IVPB Q12H [facility] Stop: 07/21/17 18:01 Last Admin: 07/17/17 05:41 Dose: 133.333 mls/hr Insulin Aspart (Novolog) 0 unit SC ACHS [facility] PRN Reason: Protocol Last Admin: 07/17/17 12:30 Dose: Not Given Lidocaine (Lidoderm) 1 ea TD DAILY [facility] Last Admin: 07/17/17 10:13 Dose: 1 ea Losartan Potassium (Cozaar) 25 mg PO DAILY [facility] Last Admin: 07/17/17 10:16 Dose: 25 mg Memantine (Namenda) 10 mg PO BID [facility] Last Admin: 07/17/17 10:16 Dose: 10 mg Metformin HCl (Glucophage) 1,000 mg PO DAILY [facility] Last Admin: 07/17/17 10:16 Dose: 1,000 mg Metoprolol Succinate (Toprol Xl) 50 mg PO DAILY [facility] Last Admin: 07/17/17 10:16 Dose: 50 mg Nitroglycerin (Nitro-Dur 0.2 Mg/Hr Patch) 1 patch TD DAILY [facility] Last Admin: 07/17/17 10:17 Dose: 1 patch Nitroglycerin (Nitrostat Sl Tab) 0.4 mg SL Q5M PRN PRN Reason: chest pain Pantoprazole Sodium (Protonix Ec Tab) 40 mg PO DAILY [facility] Last Admin: 07/17/17 10:16 Dose: 40 mg Potassium Chloride (K-Dur 20 Meq Er Tab) 20 meq PO DAILY [facility] Last Admin: 07/16/17 10:00 Dose: 20 meq Rosuvastatin Calcium (Crestor) 2.5 mg PO HS [facility] Last Admin: 07/16/17 21:22 Dose: 2.5 mg Sitagliptin Phosphate (Januvia) 50 mg PO DAILY [facility] Last Admin: 07/17/17 10:16 Dose: 50 mg Tramadol HCl (Ultram) 50 mg PO Q8H PRN PRN Reason: Pain, moderate (4-7) Last Admin: 07/17/17 10:13 Dose: 50 mg - Labs Labs: 07/17/17 08:09 07/17/17 08:09 PT 13.1 SECONDS (9.7-12.2) H 07/16/17 09:14 INR 1.2 07/16/17 09:14 APTT 26 SECONDS (21-34) 07/16/17 09:14
[2017-07-17] MEDS ORDERED: ceFAZolin 2 GM in Sodium Chloride 0.9% 100 ML IVPB SCH (14:00)
[2017-07-17] MEDS: ceFAZolin IV 2 gm in Dextrose 2 GM/50 ML BAG IVPB SCH ×2 (14:19→22:08)
[2017-07-17 15:13] LABS: FLUID TYPE SYNOVIAL FLUID
--- NOTE | 2017-07-17 15:53 | CARD ---
APPROVED REPORT EKG Measurement Heart [id number] <Conclusion> Normal sinus rhythm Left axis deviation Left ventricular hypertrophy with repolarization abnormality Anteroseptal infarct, age undetermined Abnormal ECG
--- NOTE | 2017-07-17 16:08 | CP.PCM.PN ---
Subjective - Date & Time of Evaluation Date of Evaluation: 07/17/17 Time of Evaluation: 16:06 - Subjective Subjective: Patient currently comfortable. Per RN, this am patient was in severe pain with her knee. Translation device used. Patient states she has knee swelling at times but this is more painful. Knee arthrocentesis: Risks, benefits, alternatives of knee arthrocentesis and aspiration were explained in detail, patient verbalized understanding and consented to procedure. The patients left knee was prepped in the usual sterile fashion with betadine and chloroprep. A 21-gauge 1.5 inch needle was inserted into the knee joint from a superior lateral approach. Through this needle 45 cc of cloudy red tinged fluid was aspirated, and sent for stat cell count, gram stain, culture and sensitivity x [address] Olivia. The needle was removed, and sterile dressing, arden bandage, and ice were applied to knee. Patient tolerated the procedure well. There were no complications. Objective - Vital Signs/Intake and Output Vital Signs (last 24 hours): Temp Pulse Resp BP Pulse Ox 97.7 F 65 20 105/70 96 07/17/17 08:41 07/17/17 12:00 07/17/17 08:41 07/17/17 08:41 07/17/17 08:41 Intake and Output: 07/17/17 07/17/17 06:59 18:59 Intake Total 850 410 Balance 850 410 - Medications Medications: Current Medications Acetaminophen (Tylenol 325mg Tab) 650 mg PO Q8H PRN PRN Reason: Pain, Mild (1-3) Last Admin: 07/17/17 14:18 Dose: 650 mg Enoxaparin Sodium (Lovenox) 69 mg SC DAILY [facility] Last Admin: 07/17/17 10:17 Dose: 69 mg Home Med (Etanercept [Enbrel]) 50 mg SC QWK [facility] Cefazolin Sodium/Dextrose (Ancef Iv 2 Gm Duplex) 2 gm in 50 mls @ 100 mls/hr IVPB Q8H [facility] Last Admin: 07/17/17 14:19 Dose: 100 mls/hr Insulin Aspart (Novolog) 0 unit SC ACHS [facility] PRN Reason: Protocol Last Admin: 07/17/17 12:30 Dose: Not Given Lidocaine (Lidoderm) 1 ea TD DAILY [facility] Last Admin: 07/17/17 10:13 Dose: 1 ea Losartan Potassium (Cozaar) 25 mg PO DAILY [facility] Last Admin: 07/17/17 10:16 Dose: 25 mg Memantine (Namenda) 10 mg PO BID [facility] Last Admin: 07/17/17 10:16 Dose: 10 mg Metformin HCl (Glucophage) 1,000 mg PO DAILY [facility] Last Admin: 07/17/17 10:16 Dose: 1,000 mg Metoprolol Succinate (Toprol Xl) 50 mg PO DAILY [facility] Last Admin: 07/17/17 10:16 Dose: 50 mg Nitroglycerin (Nitro-Dur 0.2 Mg/Hr Patch) 1 patch TD DAILY [facility] Last Admin: 07/17/17 10:17 Dose: 1 patch Nitroglycerin (Nitrostat Sl Tab) 0.4 mg SL Q5M PRN PRN Reason: chest pain Pantoprazole Sodium (Protonix Ec Tab) 40 mg PO DAILY [facility] Last Admin: 07/17/17 10:16 Dose: 40 mg Potassium Chloride (K-Dur 20 Meq Er Tab) 20 meq PO DAILY [facility] Last Admin: 07/16/17 10:00 Dose: 20 meq Rosuvastatin Calcium (Crestor) 2.5 mg PO HS [facility] Last Admin: 07/16/17 21:22 Dose: 2.5 mg Sitagliptin Phosphate (Januvia) 50 mg PO DAILY [facility] Last Admin: 07/17/17 10:16 Dose: 50 mg Tramadol HCl (Ultram) 50 mg PO Q8H PRN PRN Reason: Pain, moderate (4-7) Last Admin: 07/17/17 10:13 Dose: 50 mg - Labs Labs: 07/17/17 08:09 07/17/17 08:09 PT 13.1 SECONDS (9.7-12.2) H 07/16/17 09:14 INR 1.2 07/16/17 09:14 APTT 26 SECONDS (21-34) 07/16/17 09:14 - Constitutional Appears: Well, No Acute Distress - Head Exam Head Exam: ATRAUMATIC - Extremities Exam Additional comments: patient more comfortable today, doesn't actively move knee due to pain, complains of pain with attempts at passive motion but tolerated much better today. Noted reaccumulation of left knee joint effusion since aspiration. no erythema, same warmth. +ROM ankle/toes, sensation intact +DP/PT pulses - Neurological Exam Neurological Exam: Alert, Awake, Oriented x3 - Psychiatric Exam Psychiatric exam: Normal Affect, Normal Mood - Skin Skin Exam: Dry, Intact, Normal Color, Warm Additional comments: no erythema, knee still warm, no change Assessment and Plan (1) Pseudogout of left knee Assessment & Plan: r/o septic arthritis superinfection per DR. Olivia, possible contamination and requested repeat aspiration with c&S x 3, completed today with patient's consent fluid also sent for repeat cell count again ID consult appreciated antibiotics per ID recommend NSAIDs, patient in pain now after aspiration had good relief with toradol will given another single dose f/u results d/w Dr. Olivia, aware of repeat aspiration fluid, will f/u results Status: Acute (2) Degenerative joint disease of knee, left Status: Chronic
[2017-07-17 16:30] LABS: SF GROSS APPEARANCE CLOUDY (CLEAR); SYNOVIAL FLUID MONO/MACROPHAGE 6 % (0-0)
--- NOTE | 2017-07-17 16:50 | CP.PCM.PN ---
Subjective - Date & Time of Evaluation Date of Evaluation: 07/17/17 Time of Evaluation: 14:35 - Subjective Subjective: Patient seen and examined today while in bed. Patient states she is doing well status post right-sided thoracentesis yesterday, with removal of 500 cc straw- colored fluid. Patient denies any pain at thoracentesis site. Patient is in obvious distress about knee pain due to her arthrocentesis and is requesting IV pain medications. Per nursing, she received 1 dose of 30 mg IVP Toradol yesterday which alleviated her pain. She states ultram and tylenol are not providing sufficient relief. Patient denies shortness of breath, chest pain, palpitations. Objective - Vital Signs/Intake and Output Vital Signs (last 24 hours): Temp Pulse Resp BP Pulse Ox 97.7 F 65 20 105/70 96 07/17/17 08:41 07/17/17 12:00 07/17/17 08:41 07/17/17 08:41 07/17/17 08:41 Intake and Output: 07/17/17 07/17/17 06:59 18:59 Intake Total 850 410 Balance 850 410 - Medications Medications: Current Medications Acetaminophen (Tylenol 325mg Tab) 650 mg PO Q8H PRN PRN Reason: Pain, Mild (1-3) Last Admin: 07/17/17 14:18 Dose: 650 mg Enoxaparin Sodium (Lovenox) 69 mg SC DAILY [facility] Last Admin: 07/17/17 10:17 Dose: 69 mg Home Med (Etanercept [Enbrel]) 50 mg SC QWK [facility] Cefazolin Sodium/Dextrose (Ancef Iv 2 Gm Duplex) 2 gm in 50 mls @ 100 mls/hr IVPB Q8H [facility] Last Admin: 07/17/17 14:19 Dose: 100 mls/hr Insulin Aspart (Novolog) 0 unit SC ACHS [facility] PRN Reason: Protocol Last Admin: 07/17/17 16:45 Dose: Not Given Lidocaine (Lidoderm) 1 ea TD DAILY [facility] Last Admin: 07/17/17 10:13 Dose: 1 ea Losartan Potassium (Cozaar) 25 mg PO DAILY [facility] Last Admin: 07/17/17 10:16 Dose: 25 mg Memantine (Namenda) 10 mg PO BID [facility] Last Admin: 07/17/17 10:16 Dose: 10 mg Metformin HCl (Glucophage) 1,000 mg PO DAILY [facility] Last Admin: 07/17/17 10:16 Dose: 1,000 mg Metoprolol Succinate (Toprol Xl) 50 mg PO DAILY [facility] Last Admin: 07/17/17 10:16 Dose: 50 mg Nitroglycerin (Nitro-Dur 0.2 Mg/Hr Patch) 1 patch TD DAILY [facility] Last Admin: 07/17/17 10:17 Dose: 1 patch Nitroglycerin (Nitrostat Sl Tab) 0.4 mg SL Q5M PRN PRN Reason: chest pain Pantoprazole Sodium (Protonix Ec Tab) 40 mg PO DAILY [facility] Last Admin: 07/17/17 10:16 Dose: 40 mg Potassium Chloride (K-Dur 20 Meq Er Tab) 20 meq PO DAILY [facility] Last Admin: 07/16/17 10:00 Dose: 20 meq Rosuvastatin Calcium (Crestor) 2.5 mg PO HS [facility] Last Admin: 07/16/17 21:22 Dose: 2.5 mg Sitagliptin Phosphate (Januvia) 50 mg PO DAILY [facility] Last Admin: 07/17/17 10:16 Dose: 50 mg Tramadol HCl (Ultram) 50 mg PO Q8H PRN PRN Reason: Pain, moderate (4-7) Last Admin: 07/17/17 10:13 Dose: 50 mg - Labs Labs: 07/17/17 08:09 07/17/17 08:09 PT 13.1 SECONDS (9.7-12.2) H 07/16/17 09:14 INR 1.2 07/16/17 09:14 APTT 26 SECONDS (21-34) 07/16/17 09:14 Assessment and Plan (1) Pleural effusion Assessment & Plan: status post thoracentesis Awaiting fluid analysis Continue present treatment Status: Acute (2) CHF (congestive heart failure) Status: Acute
[2017-07-17] MEDS: Rosuvastatin Calcium 2.5 mg Tab PO SCH (22:09)
--- NOTE | 2017-07-18 03:45 | PN ---
DATE: SUBJECTIVE: The patient is a 72-year-old female. The patient is seen and examined at the bedside. Looking comfortable. No nausea, vomiting or diarrhea. No hematuria, no hematochezia. No swelling of the leg. No chest pain. No palpitations. No fever,. No chills. PHYSICAL EXAMINATION: VITAL SIGNS: Temperature 97.7, pulse 65, respiratory rate 20, blood pressure 105/70, pulse oximetry of 96. HEENT: Head: Normocephalic and atraumatic. Eyes: PERRLA. Extraocular muscles intact. Conjunctivae clear. Nose patent. Mucous membranes moist. NECK: Supple. No carotid bruits, JVD or thyromegaly. CHEST: Bilaterally symmetrical. HEART: S1 and S2, positive. LUNGS: Clear to auscultation. ABDOMEN: Soft. Bowel sounds present. No organomegaly. EXTREMITIES: No edema. No cyanosis. NEUROLOGIC: The patient is awake and alert. Moving all four extremities. No focal deficits. MEDICATIONS: Tylenol, Lovenox, cefazolin, insulin, Lidoderm, Cozaar, Namenda, Glucophage, Toprol, Protonix, potassium, Crestor, Januvia, tramadol. LABORATORY DATA: White blood cells 12.3, hemoglobin 9.5, hematocrit 28.7, platelets 218. Sodium 121, potassium 4.5, BUN 23, creatinine 1.0, glucose 84. ASSESSMENT AND PLAN: Ms. Itz Eli is 72-year-old lady with leukopenia, anemia, hyponatremia, increased BUN, has pseudogout of the left knee, rule out septic arthritis with superinfection, as per Dr. Zapien possibly contamination and requested a repeat aspiration with culture and sensitivity x3. Completed today the patient's 2.18 . Infectious Disease is on the case. Continue antibiotics as per ID, recommended NSAIDs. Degenerative joint disease as per Orthopedic, status post arthrocentesis. Seen by Dr. Immanuel Alvarez, barrel racer, status post thoracentesis, removal of 500 mL of straw-colored fluid. No chest pain after thoracentesis. Left knee pain. Congestive heart failure. Seen by Dr. Mejia Avina, Infectious Disease. History of atrial fibrillation, diabetes mellitus, rheumatoid arthritis/osteoarthritis. Discontinue vancomycin as the patient's aspirate is MSSA; started on Ancef 2 g IV every 8 hours. The patient has history of mitral valve replacement. 2D echo to rule out vegetation. Gastrointestinal and deep venous thrombosis prophylaxis. Discussion done with Infectious Disease. We will call cardiology consult. We will follow. Kallie Jordan MD MTDD
[2017-07-18] MEDS: ceFAZolin IV 2 gm in Dextrose 2 GM/50 ML BAG IVPB SCH ×3 (05:25→21:35)
[2017-07-18 07:40] LABS: BASO % 0.7 % (0.0-2.0); EOS # 0.1 K/uL (0.0-0.7); EOS % 2.8 % (0.0-4.0); LYMPH # 0.2 K/uL (1.0-4.3); LYMPH % 4.8 % (20.0-40.0); MEAN CELL VOLUME 88.1 fL (81.0-99.0); MEAN CORPUSCULAR HEMOGLOBIN 29.6 pg (27.0-31.0); MEAN CORPUSCULAR HGB CONC 33.6 g/dL (33.0-37.0); MEAN PLATELET VOLUME 9.2 fL (7.2-11.7); MONO # 0.4 K/uL (0.0-0.8); MONO % 9.4 % (0.0-10.0); NEUT # 3.7 K/uL (1.8-7.0); NEUT % 82.3 % (50.0-75.0); PLATELET COUNT 239 K/uL (130-400); RBC 3.38 Mil/uL (3.80-5.20); RED CELL DISTRIBUTION WIDTH 16.9 % (11.5-14.5); WHITE BLOOD COUNT 4.5 K/uL (4.8-10.8)
[2017-07-18] MEDS: (Novolog) Insulin Aspart, Recombinant 100 u/ml 10 ml vial SC SCH ×4 (08:10→21:36)
[2017-07-18 08:29] LABS: BLOOD UREA NITROGEN 27 mg/dL (7-17); CALCIUM 7.8 mg/dl (8.6-10.4); GFR AFRICAN-AMERICAN > 60; GFR NON-AFRICAN AMERICAN 55
[2017-07-18 08:31] LABS: GLUCOSE PLEURAL FLUID 96 mg/dL; LDH PLEURAL FLUID 103 U/L; TOTAL PROTEIN PLEURAL FLUID <3.0 g/dL
[2017-07-18] MEDS: Pantoprazole 40 mg EC Tab PO SCH (11:11)
[2017-07-18] MEDS: Enoxaparin 80 mg Syringe SC SCH (11:11)
[2017-07-18] MEDS: Metoprolol Succinate 50 mg XL Tab PO SCH (11:11)
[2017-07-18] MEDS: Nitroglycerin 0.2 mg/hr Top Patch TD SCH (11:12)
[2017-07-18] MEDS: Lidocaine 5% Patch TD SCH (11:12)
[2017-07-18] MEDS: Potassium Chloride 20 mEq ER Tab PO SCH (11:13)
[2017-07-18 11:38] LABS: BANDS 2 % (0-2); EOSINOPHIL 4 % (0-4); LYMPHOCYTE 7 % (20-40); MONOCYTE 12 % (0-10); NEUTROPHIL 75 % (50-75); PLATELET ESTIMATE NORMAL (NORMAL); TOTAL CELLS COUNTED 100
[2017-07-18 11:39] LABS: ANISOCYTOSIS SLIGHT; LARGE PLATELETS PRESENT; OVALOCYTES SLIGHT; TARGET CELLS SLIGHT
--- NOTE | 2017-07-18 12:13 | CP.PCM.PN ---
Subjective - Date & Time of Evaluation Date of Evaluation: 07/18/17 Time of Evaluation: 12:00 - Subjective Subjective: patient has no chest pain or dyspnea. Objective - Vital Signs/Intake and Output Vital Signs (last 24 hours): Temp Pulse Resp BP Pulse Ox 97.4 F L 59 L 20 119/77 96 07/18/17 08:00 07/18/17 08:00 07/18/17 08:00 07/18/17 08:00 07/18/17 08:00 Intake and Output: 07/18/17 07/18/17 06:59 18:59 Intake Total 350 Balance 350 - Medications Medications: Current Medications Acetaminophen (Tylenol 325mg Tab) 650 mg PO Q8H PRN PRN Reason: Pain, Mild (1-3) Last Admin: 07/17/17 14:18 Dose: 650 mg Enoxaparin Sodium (Lovenox) 69 mg SC DAILY [facility] Last Admin: 07/18/17 11:11 Dose: 69 mg Home Med (Etanercept [Enbrel]) 50 mg SC QWK [facility] Cefazolin Sodium/Dextrose (Ancef Iv 2 Gm Duplex) 2 gm in 50 mls @ 100 mls/hr IVPB Q8H [facility] Last Admin: 07/18/17 05:25 Dose: 100 mls/hr Insulin Aspart (Novolog) 0 unit SC ACHS [facility] PRN Reason: Protocol Last Admin: 07/18/17 08:10 Dose: Not Given Lidocaine (Lidoderm) 1 ea TD DAILY [facility] Last Admin: 07/18/17 11:12 Dose: 1 ea Losartan Potassium (Cozaar) 25 mg PO DAILY [facility] Last Admin: 07/18/17 11:10 Dose: 25 mg Memantine (Namenda) 10 mg PO BID [facility] Last Admin: 07/18/17 11:11 Dose: 10 mg Metformin HCl (Glucophage) 1,000 mg PO DAILY [facility] Last Admin: 07/18/17 11:12 Dose: Not Given Metoprolol Succinate (Toprol Xl) 50 mg PO DAILY [facility] Last Admin: 07/18/17 11:11 Dose: 50 mg Nitroglycerin (Nitro-Dur 0.2 Mg/Hr Patch) 1 patch TD DAILY [facility] Last Admin: 07/18/17 11:12 Dose: 1 patch Nitroglycerin (Nitrostat Sl Tab) 0.4 mg SL Q5M PRN PRN Reason: chest pain Pantoprazole Sodium (Protonix Ec Tab) 40 mg PO DAILY [facility] Last Admin: 07/18/17 11:11 Dose: 40 mg Potassium Chloride (K-Dur 20 Meq Er Tab) 20 meq PO DAILY [facility] Last Admin: 07/18/17 11:13 Dose: Not Given Rosuvastatin Calcium (Crestor) 2.5 mg PO HS [facility] Last Admin: 07/17/17 22:09 Dose: 2.5 mg Sitagliptin Phosphate (Januvia) 50 mg PO DAILY [facility] Last Admin: 07/18/17 11:12 Dose: Not Given Tramadol HCl (Ultram) 50 mg PO Q8H PRN PRN Reason: Pain, moderate (4-7) Last Admin: 07/18/17 00:23 Dose: 50 mg - Labs Labs: 07/18/17 07:00 07/18/17 07:00 PT 13.1 SECONDS (9.7-12.2) H 07/16/17 09:14 INR 1.2 07/16/17 09:14 APTT 26 SECONDS (21-34) 07/16/17 09:14 - Constitutional Appears: Chronically Ill - Head Exam Head Exam: NORMAL INSPECTION - Eye Exam Eye Exam: Normal appearance - ENT Exam ENT Exam: Mucous Membranes Moist - Neck Exam Neck Exam: Full ROM - Respiratory Exam Respiratory Exam: Decreased Breath Sounds - Cardiovascular Exam Cardiovascular Exam: REGULAR RHYTHM - GI/Abdominal Exam GI & Abdominal Exam: Normal Bowel Sounds - Rectal Exam Rectal Exam: Deferred - Extremities Exam Extremities Exam: Pedal Edema - Back Exam Back Exam: NORMAL INSPECTION - Neurological Exam Neurological Exam: Alert - Psychiatric Exam Psychiatric exam: Normal Affect - Skin Skin Exam: Normal Color Assessment and Plan (1) Systolic dysfunction with acute on chronic heart failure Assessment & Plan: improved volume status. medical management Status: Acute (2) CAD (coronary artery disease) Assessment & Plan: stable no current angina Status: Acute (3) Hypertension Assessment & Plan: blood pressure mgmt Status: Chronic
[2017-07-18 12:17] LABS: SQUAMOUS EPITHIAL 4 /hpf (0-5); URINE BACTERIA OCC (<OCC)
[2017-07-18 12:27] LABS: URINE BILIRUBIN SMALL (NEGATIVE); URINE BLOOD NEGATIVE (NEGATIVE); URINE CLARITY CLOUDY (Clear); URINE COLOR YELLOW (YELLOW); URINE GLUCOSE (UA) NEGATIVE (Normal); URINE LEUKOCYTE ESTERASE 1+ Leu/uL (Negative); URINE NITRATE NEGATIVE (NEGATIVE); URINE PROTEIN 30 mg/dL (NEGATIVE); URINE UROBILINOGEN 0.2 mg/dL (0.2-1.0)
[2017-07-18 12:30] LABS: CREATININE, RANDOM URINE 146.3 mg/dL
--- NOTE | 2017-07-18 12:38 | CP.PCM.PN ---
Subjective - Date & Time of Evaluation Date of Evaluation: 07/18/17 Time of Evaluation: 12:30 - Subjective Subjective: Patient with left knee pain. Objective - Vital Signs/Intake and Output Vital Signs (last 24 hours): Temp Pulse Resp BP Pulse Ox 97.4 F L 59 L 20 119/77 96 07/18/17 08:00 07/18/17 08:00 07/18/17 08:00 07/18/17 08:00 07/18/17 08:00 Intake and Output: 07/18/17 07/18/17 06:59 18:59 Intake Total 350 Balance 350 - Medications Medications: Current Medications Acetaminophen (Tylenol 325mg Tab) 650 mg PO Q8H PRN PRN Reason: Pain, Mild (1-3) Last Admin: 07/17/17 14:18 Dose: 650 mg Enoxaparin Sodium (Lovenox) 69 mg SC DAILY [facility] Last Admin: 07/18/17 11:11 Dose: 69 mg Home Med (Etanercept [Enbrel]) 50 mg SC QWK [facility] Cefazolin Sodium/Dextrose (Ancef Iv 2 Gm Duplex) 2 gm in 50 mls @ 100 mls/hr IVPB Q8H [facility] Last Admin: 07/18/17 05:25 Dose: 100 mls/hr Insulin Aspart (Novolog) 0 unit SC ACHS [facility] PRN Reason: Protocol Last Admin: 07/18/17 12:13 Dose: Not Given Lidocaine (Lidoderm) 1 ea TD DAILY [facility] Last Admin: 07/18/17 11:12 Dose: 1 ea Losartan Potassium (Cozaar) 25 mg PO DAILY [facility] Last Admin: 07/18/17 11:10 Dose: 25 mg Memantine (Namenda) 10 mg PO BID [facility] Last Admin: 07/18/17 11:11 Dose: 10 mg Metformin HCl (Glucophage) 1,000 mg PO DAILY [facility] Last Admin: 07/18/17 11:12 Dose: Not Given Metoprolol Succinate (Toprol Xl) 50 mg PO DAILY [facility] Last Admin: 07/18/17 11:11 Dose: 50 mg Nitroglycerin (Nitro-Dur 0.2 Mg/Hr Patch) 1 patch TD DAILY [facility] Last Admin: 07/18/17 11:12 Dose: 1 patch Nitroglycerin (Nitrostat Sl Tab) 0.4 mg SL Q5M PRN PRN Reason: chest pain Pantoprazole Sodium (Protonix Ec Tab) 40 mg PO DAILY [facility] Last Admin: 07/18/17 11:11 Dose: 40 mg Potassium Chloride (K-Dur 20 Meq Er Tab) 20 meq PO DAILY [facility] Last Admin: 07/18/17 11:13 Dose: Not Given Rosuvastatin Calcium (Crestor) 2.5 mg PO HS [facility] Last Admin: 07/17/17 22:09 Dose: 2.5 mg Sitagliptin Phosphate (Januvia) 50 mg PO DAILY [facility] Last Admin: 07/18/17 11:12 Dose: Not Given Tramadol HCl (Ultram) 50 mg PO Q8H PRN PRN Reason: Pain, moderate (4-7) Last Admin: 07/18/17 00:23 Dose: 50 mg - Labs Labs: 07/18/17 07:00 07/18/17 07:00 PT 13.1 SECONDS (9.7-12.2) H 07/16/17 09:14 INR 1.2 07/16/17 09:14 APTT 26 SECONDS (21-34) 07/16/17 09:14 - Extremities Exam Additional comments: left knee effusion. +ROM ankle/toes, sesnation inact, calves soft NT neg homans Assessment and Plan (1) Septic arthritis of knee, left Assessment & Plan: Dr. Olivia notified of repeat aspiration at time of aspiration, and notified of repeat cell count and gram stain results this am repeat cell count WBC >200,000, gram + cocci on gram stain repeat d/w Dr. Olivia, will transfer care to Dr. Mcmillan per Dr. Olivia NPO for arthroscopic I&D tomorrow need medical optimization, NA 120 renal consultation pending Status: Acute (2) Pseudogout of left knee Status: Acute (3) Degenerative joint disease of knee, left Status: Chronic
[2017-07-18] MEDS ORDERED: Albumin Human 5% (12.5 gm/250 ml) IV ONE (13:30)
--- NOTE | 2017-07-18 16:23 | CP.PCM.PN ---
Subjective - Date & Time of Evaluation Date of Evaluation: 07/18/17 Time of Evaluation: 10:40 - Subjective Subjective: Patient seen and examined in bed today. Patient asleep and not waking to verbal or physical stimuli. Patient seems to be respiring well. Awaiting thoracentesis culture results. Objective - Vital Signs/Intake and Output Vital Signs (last 24 hours): Temp Pulse Resp BP Pulse Ox 97.4 F L 59 L 20 119/77 96 07/18/17 08:00 07/18/17 08:00 07/18/17 08:00 07/18/17 08:00 07/18/17 08:00 Intake and Output: 07/18/17 07/18/17 06:59 18:59 Intake Total 350 Balance 350 - Medications Medications: Current Medications Acetaminophen (Tylenol 325mg Tab) 650 mg PO Q8H PRN PRN Reason: Pain, Mild (1-3) Last Admin: 07/17/17 14:18 Dose: 650 mg Enoxaparin Sodium (Lovenox) 69 mg SC DAILY [facility] Last Admin: 07/18/17 11:11 Dose: 69 mg Home Med (Etanercept [Enbrel]) 50 mg SC QWK [facility] Cefazolin Sodium/Dextrose (Ancef Iv 2 Gm Duplex) 2 gm in 50 mls @ 100 mls/hr IVPB Q8H [facility] Last Admin: 07/18/17 14:30 Dose: 100 mls/hr Insulin Aspart (Novolog) 0 unit SC ACHS [facility] PRN Reason: Protocol Last Admin: 07/18/17 12:13 Dose: Not Given Lidocaine (Lidoderm) 1 ea TD DAILY [facility] Last Admin: 07/18/17 11:12 Dose: 1 ea Losartan Potassium (Cozaar) 25 mg PO DAILY [facility] Last Admin: 07/18/17 11:10 Dose: 25 mg Memantine (Namenda) 10 mg PO BID [facility] Last Admin: 07/18/17 11:11 Dose: 10 mg Metformin HCl (Glucophage) 1,000 mg PO DAILY [facility] Last Admin: 07/18/17 11:12 Dose: Not Given Metoprolol Succinate (Toprol Xl) 50 mg PO DAILY [facility] Last Admin: 07/18/17 11:11 Dose: 50 mg Nitroglycerin (Nitro-Dur 0.2 Mg/Hr Patch) 1 patch TD DAILY [facility] Last Admin: 07/18/17 11:12 Dose: 1 patch Nitroglycerin (Nitrostat Sl Tab) 0.4 mg SL Q5M PRN PRN Reason: chest pain Pantoprazole Sodium (Protonix Ec Tab) 40 mg PO DAILY [facility] Last Admin: 07/18/17 11:11 Dose: 40 mg Potassium Chloride (K-Dur 20 Meq Er Tab) 20 meq PO DAILY [facility] Last Admin: 07/18/17 11:13 Dose: Not Given Rosuvastatin Calcium (Crestor) 2.5 mg PO HS [facility] Last Admin: 07/17/17 22:09 Dose: 2.5 mg Sitagliptin Phosphate (Januvia) 50 mg PO DAILY [facility] Last Admin: 07/18/17 11:12 Dose: Not Given Tramadol HCl (Ultram) 50 mg PO Q8H PRN PRN Reason: Pain, moderate (4-7) Last Admin: 07/18/17 15:03 Dose: 50 mg - Labs Labs: 07/18/17 07:00 07/18/17 07:00 PT 13.1 SECONDS (9.7-12.2) H 07/16/17 09:14 INR 1.2 07/16/17 09:14 APTT 26 SECONDS (21-34) 07/16/17 09:14 - Head Exam Head Exam: ATRAUMATIC, NORMOCEPHALIC - Eye Exam Eye Exam: Normal appearance - ENT Exam ENT Exam: Mucous Membranes Moist - Respiratory Exam Respiratory Exam: Clear to Ausculation Bilateral - Cardiovascular Exam Cardiovascular Exam: REGULAR RHYTHM Assessment and Plan (1) Pleural effusion Assessment & Plan: 1. Pleural effusion - status-post right-sided thoracentesis. Awaiting fluid culture results. Continue present treatment. Status: Acute (2) CHF (congestive heart failure) Status: Acute
--- NOTE | 2017-07-18 18:17 | CP.PCM.PN ---
Subjective - Date & Time of Evaluation Date of Evaluation: 07/18/17 Time of Evaluation: 18:16 - Subjective Subjective: CHIEF COMPLAINTS TODAY : afebrile, Awake and alert c/o much pain left knee s/p aspiration x 2 by ortho for cultures ROS. HEENT : N. Resp : No SOB wheezing, cough Cardio : No CP, PND orthopnea GI : No abd. Pain, n/v [employer]MENT [employer] SPECIALIST : No headache , focal deficit. Musculoskel : LEFT KNEE SWOLLEN AND WARM, WITH EFFUSION. Ext. : Pedal pulses intact, no edema or calf pain Derm : N Psych : N. PE. Pt. is alert awake in no distress. V.S As noted in the chart Head ,ear nose,throat and eyes : Normal. Neck : Supple with normal carotids. Lungs: Clear air entry. Heart : S1 & S2 normal . . No murmur. S4 + Abd : Soft non tender with normal bowel sounds. Neuro : Moves all ext. with no localized deficit. Ext : intact pulses. Neg. calf tenderness LEFT KNEE SWOLLEN AND WARM, WITH EFFUSION. TENDERNESS ON PALPATION. Derm : No rashes or decubitus ulcer. Radiology/Labs . REPEAT LT.KNEE ASPIRATE 07/17/17 +VE GP COCCI LEFT KNEE ASPIRATE +VE MSSA.+VE CPPD CRYSTALS.. ESR 127 ,CRP >15 CREAT 1.0/bun 23 LFTS N Asssessment : IMPRESSION; SEPTIC ARTHRITIS LEFT KNEE/WITH PSEUDOGOUT (STAPH.AUREUS +VE+CPPD ) R/O SBE. HX OF CABG /MVR. cONGESTIVE HEART FAILURE. S/P THORACENTESIS. lYMPHOCYTIC EFFUSION aTRIAL FIBRILLATION. DM-2 RHEUMATOID ARTHRITIS/OSTEOPOROSIS BY HISTORY. PLAN ADD iv cLEOCIN 300 MG iv PIGGYBACK EVERY 6 HOURLY X 3DAYS.07/18/17. Continue iv ANCEF 2 G iv PIGGYBACK EVERY 8 HOURLY. PATIENT HAS HISTORY OF MITRAL VALVE REPLACEMENT. 2-D ECHO RULE OUT VEGETATIONS.- PENDING TREATMENT OF PSEUDOGOUT PER ORTHOPEDIC. Objective - Vital Signs/Intake and Output Vital Signs (last 24 hours): Temp Pulse Resp BP Pulse Ox 97.8 F 58 L 20 116/71 100 07/18/17 15:10 07/18/17 15:10 07/18/17 15:10 07/18/17 15:10 07/18/17 15:10 Intake and Output: 07/18/17 07/18/17 06:59 18:59 Intake Total 350 650 Output Total 130 Balance 350 520 - Medications Medications: Current Medications Acetaminophen (Tylenol 325mg Tab) 650 mg PO Q8H PRN PRN Reason: Pain, Mild (1-3) Last Admin: 07/17/17 14:18 Dose: 650 mg Enoxaparin Sodium (Lovenox) 69 mg SC DAILY [facility] Last Admin: 07/18/17 11:11 Dose: 69 mg Home Med (Etanercept [Enbrel]) 50 mg SC QWK [facility] Cefazolin Sodium/Dextrose (Ancef Iv 2 Gm Duplex) 2 gm in 50 mls @ 100 mls/hr IVPB Q8H [facility] Last Admin: 07/18/17 14:30 Dose: 100 mls/hr Insulin Aspart (Novolog) 0 unit SC ACHS [facility] PRN Reason: Protocol Last Admin: 07/18/17 17:20 Dose: Not Given Lidocaine (Lidoderm) 1 ea TD DAILY [facility] Last Admin: 07/18/17 11:12 Dose: 1 ea Losartan Potassium (Cozaar) 25 mg PO DAILY [facility] Last Admin: 07/18/17 11:10 Dose: 25 mg Memantine (Namenda) 10 mg PO BID [facility] Last Admin: 07/18/17 17:50 Dose: 10 mg Metformin HCl (Glucophage) 1,000 mg PO DAILY [facility] Last Admin: 07/18/17 11:12 Dose: Not Given Metoprolol Succinate (Toprol Xl) 50 mg PO DAILY [facility] Last Admin: 07/18/17 11:11 Dose: 50 mg Nitroglycerin (Nitro-Dur 0.2 Mg/Hr Patch) 1 patch TD DAILY [facility] Last Admin: 07/18/17 11:12 Dose: 1 patch Nitroglycerin (Nitrostat Sl Tab) 0.4 mg SL Q5M PRN PRN Reason: chest pain Pantoprazole Sodium (Protonix Ec Tab) 40 mg PO DAILY [facility] Last Admin: 07/18/17 11:11 Dose: 40 mg Potassium Chloride (K-Dur 20 Meq Er Tab) 20 meq PO DAILY [facility] Last Admin: 07/18/17 11:13 Dose: Not Given Rosuvastatin Calcium (Crestor) 2.5 mg PO HS [facility] Last Admin: 07/17/17 22:09 Dose: 2.5 mg Sitagliptin Phosphate (Januvia) 50 mg PO DAILY [facility] Last Admin: 07/18/17 11:12 Dose: Not Given Tramadol HCl (Ultram) 50 mg PO Q8H PRN PRN Reason: Pain, moderate (4-7) Last Admin: 07/18/17 15:03 Dose: 50 mg - Labs Labs: 07/18/17 07:00 07/18/17 07:00 PT 13.1 SECONDS (9.7-12.2) H 07/16/17 09:14 INR 1.2 07/16/17 09:14 APTT 26 SECONDS (21-34) 07/16/17 09:14
[2017-07-18 20:09] LABS: BLOOD UREA NITROGEN 25 mg/dL (7-17); CALCIUM 7.7 mg/dl (8.6-10.4); GFR AFRICAN-AMERICAN > 60; GFR NON-AFRICAN AMERICAN > 60
[2017-07-18] MEDS: Tolvaptan 15 MG TAB PO STA (20:34)
--- NOTE | 2017-07-18 20:51 | CP.PCM.PCO ---
Physician Communication Note - Physician Communication Note Physician Communication Note: Na 118, tolvaptan just given, checking BMP@12am; consult dictated earlier
[2017-07-18] MEDS: Rosuvastatin Calcium 2.5 mg Tab PO SCH (21:35)
[2017-07-18] MEDS ORDERED: Clindamycin 300 MG in Sodium Chloride 0.9% 50 ML IVPB SCH (22:30)
[2017-07-18] MEDS: Clindamycin 300 MG in Sodium Chloride 0.9% 100 ML IVPB SCH (22:50)
[2017-07-19 00:49] LABS: BLOOD UREA NITROGEN 22 mg/dL (7-17); CALCIUM 7.9 mg/dl (8.6-10.4); GFR AFRICAN-AMERICAN > 60; GFR NON-AFRICAN AMERICAN > 60
--- NOTE | 2017-07-19 00:53 | CON ---
NEPHROLOGY CONSULTATION HISTORY OF PRESENT ILLNESS: The patient is a 72-year-old female with past medical history of hypertension; diabetes; CHF with severe systolic dysfunction; status post mitral valve replacement; atrial fibrillation; CAD, status post recent stent; COPD; rheumatoid arthritis, who presented to ED last week with left leg pain and worsening dyspnea; found to have septic arthritis; Nephrology is now being consulted for hyponatremia. The patient is status post arthrocentesis of left knee with cultures growing MSSA; the patient subsequently has been on antibiotics, most recently on cefazolin 2 gm q.8 hours. The patient had been on diuretics with Lasix 40 mg IV daily for her CHF with last dose being received on 07/15/2017. The patient currently denies any shortness of breath, chest pain or palpitations. She says her leg swelling is overall much improved. Denies any issues with urination, no frequent urination, has not been getting up at night to urinate. The patient reports her appetite is well and she is eating well; denies drinking excessive amounts of water; the patient otherwise reports her pain has been well controlled lately; has been getting intermittent ketorolac, last received yesterday. PAST MEDICAL HISTORY: As above, recent admission for CHF exacerbation with echo done at the beginning of the month showing severe systolic dysfunction with multiple areas of hypokinesis/dyskinesis; also with significant diastolic dysfunction; also showing flattened septum consistent with RV pressure overload and pulmonary artery pressure estimated at 50 mmHg to 60 mmHg. REVIEW OF SYSTEMS: CONSTITUTIONAL: No fevers or chills. Reports appetite well. HEENT: Vision has been impaired chronically for several years. Denies any difficulty swallowing. No sore throat. RESPIRATORY: Denies any difficulty breathing. Occasional cough. CARDIOVASCULAR: No chest pain or palpitations currently, but does get them intermittently. At baseline, reports being able to walk around without dyspnea, able to do her daily chores without dyspnea. GASTROINTESTINAL: Denies nausea, vomiting, or diarrhea. GENITOURINARY: As per HPI. MUSCULOSKELETAL: As per HPI. Occasional back pain, not currently. EXTREMITIES: Denies any significant edema currently. PSYCHIATRIC: Has been sleeping well. SKIN: Occasional pruritus, not currently. NEUROLOGIC: Denies any numbness in feet, occasional headaches. PHYSICAL EXAMINATION: VITAL SIGNS: This morning, blood pressure 119/77, heart rate 59, respirations 20, temperature 97.4, and O2 saturation 96% on room air. GENERAL: No distress, lying comfortably in bed, able to communicate in full sentences. HEENT: Moist mucous membranes, nonicteric, no cervical lymphadenopathy. RESPIRATORY: Bilateral basilar rales present. No wheezes, no rhonchi. CARDIOVASCULAR: Heart sounds S1 and S2 normal. No murmurs, no gallops, no rubs. GASTROINTESTINAL: Abdomen is soft, nontender, nondistended. Ventral hernia present. GENITOURINARY: No bladder distention. EXTREMITIES: Mild left lower leg edema. NEUROLOGIC: No numbness in feet, not oriented to date. SKIN: Warm. No cyanosis. PSYCHIATRIC: Normal mood, normal affect. LABORATORY DATA: Labs this morning, CBC: WBC 4.5, hemoglobin 10.0, hematocrit 29.8, and platelets 239. Chemistry panel: Sodium 120, down from 123 on admission; potassium 4.5; chloride 81; bicarbonate 33; BUN 27; creatinine 1.0; glucose 74; calcium 7.8. More labs from yesterday, albumin 2.6. Urine studies done today. UA specific gravity 1.015, urine protein 30 mg/dL, 19 wbc's per high power field, 5 rbc's per high power field. Urine chemistry, urine OSM 517, urine sodium 31, potassium 66.3, creatinine 146.3. Chest x-ray directly visualized done on 07/12/2017, not showing any significant pulmonary vascular congestion. ASSESSMENT AND PLAN: 1. Hyponatremia in the setting of severe systolic dysfunction and the patient having been on IV Lasix previously, suspect a component of hypovolemic hyponatremia; should ideally challenge with volume repletion; however, concern for precipitating congestive heart failure exacerbation in light of the patient's severe systolic dysfunction. Therefore, we will for now just give IV albumin 12.5 gm in 250 mL NS to run over 4 hours with a purpose of correcting intravascular volume contraction which is evident by her significant metabolic alkalosis. We will give a dose of tolvaptan 15 mg once. Checking BMP in 5 hours. Goal is to correct serum sodium by no more than 8 to 10 mEq/L over the next 24 hours to avoid BOX MAKER complications. 2. Congestive heart failure with severe systolic dysfunction as mentioned above. We would like to avoid precipitating congestive heart failure exacerbation and so we will give volume repletion very gently. 3. Metabolic alkalosis primary disorder as evident by high bicarb on chemistry panel, pH 7.53 on ABG done on 07/15/2017, needs chloride containing IV fluids to correct this; giving IV volume repletion as mentioned above. 4. Volume contraction, high bicarb and high BUN to creatinine ratio is consistent with volume contraction, giving IV fluids as above. 5. Proteinuria seen on urinalysis with 1+ proteinuria. We will check urine protein to creatinine ratio for evidence of diabetic nephropathy. Thank you for this consult. We will be following up closely. Eugene Eddy MD
[2017-07-19] MEDS: Clindamycin 300 MG in Sodium Chloride 0.9% 100 ML IVPB SCH ×4 (04:45→22:09)
--- NOTE | 2017-07-19 04:51 | PN ---
SUBJECTIVE: The patient is seen and examined at the bedside, awake and alert, still complaining of pain in the left knee. No fever. No chills. No nausea, vomiting, or diarrhea. No hematuria. No hematochezia. No headache. No dizziness. Has aspiration x2 by Ortho and sent for cultures. No shortness of breath. No dizziness. No chest pain. No abdominal pain. No headache. No focal deficit. PHYSICAL EXAMINATION: VITAL SIGNS: Temperature 97.8, pulse 58, respiratory 20, blood pressure is 115/71, and pulse oximetry is 100% HEENT: Head normocephalic, atraumatic. Eyes: PERRLA. Extraocular muscles intact. Conjunctivae clear. Nose patent. Mucous membranes moist. NECK: Supple. No carotid bruits, JVD or thyromegaly. CHEST: Bilaterally symmetrical. HEART: S1 and S2 positive. LUNGS: Clear to auscultation. ABDOMEN: Soft. Bowel sounds present. No organomegaly. EXTREMITIES: No edema, no cyanosis, left knee hurts. NEUROLOGIC: Awake and alert. Moving all four extremities. Obeying simple order. MEDICATIONS: Tylenol, Lovenox, cefazolin, insulin, lidocaine, losartan, Namenda, Glucophage, Toprol, nitro, Protonix, potassium, and Crestor. ASSESSMENT AND PLAN: Ms. Alcira Mobley is a 72-year-old lady with leukopenia, anemia, hyponatremia, hypochloremia, seen by Infectious Disease, Dr. Mejia Avina, has a septic arthritis of left knee with pseudogout, Staph aureus plus calcium pyrophosphate dihydrate deposition, rule out endocarditis, history of coronary artery bypass graft, mitral valve replacement, congestive heart failure, status post thoracentesis, atrial fibrillation, diabetes mellitus type 2, rheumatoid arthritis, osteoporosis. The patient is getting IV piggyback, continue Ancef. The patient has history of mitral valve replacement, 2D echo to rule out vegetation pending, recent surgery Dr. Shilo Huber that is the patient's reagent tender helper. Because her sodium was low, Dr. Eddy's consult called, cellars supervisor. He gave tolvaptan, seen by Dr. Jayesh Gonzalez also. We will continue present treatment, out of bed, physical therapy. We will follow. Kallie Jordan MD MTDJere
[2017-07-19] MEDS: ceFAZolin IV 2 gm in Dextrose 2 GM/50 ML BAG IVPB SCH ×3 (06:18→22:00)
[2017-07-19 07:53] LABS: ALB/GLOB RATIO 0.6 (1.0-2.1); ALBUMIN 2.5 g/dL (3.5-5.0); ALT/SGPT 13 U/L (9-52); AST/SGOT 35 U/L (14-36); BLOOD UREA NITROGEN 19 mg/dL (7-17); GFR AFRICAN-AMERICAN > 60; GFR NON-AFRICAN AMERICAN > 60
[2017-07-19] MEDS: (Novolog) Insulin Aspart, Recombinant 100 u/ml 10 ml vial SC SCH ×4 (07:55→21:26)
[2017-07-19 08:26] LABS: HEMOGLOBIN 9.8 g/dL (11.0-16.0); MEAN CELL VOLUME 87.8 fL (81.0-99.0); MEAN CORPUSCULAR HGB CONC 34.1 g/dL (33.0-37.0); MEAN PLATELET VOLUME 8.8 fL (7.2-11.7); RBC 3.26 Mil/uL (3.80-5.20); RED CELL DISTRIBUTION WIDTH 16.7 % (11.5-14.5); WHITE BLOOD COUNT 3.8 K/uL (4.8-10.8)
[2017-07-19 10:36] LABS: INR 1.2; PROTHROMBIN TIME 13.8 SECONDS (9.7-12.2)
[2017-07-19] MEDS: Nitroglycerin 0.2 mg/hr Top Patch TD SCH (10:39)
[2017-07-19] MEDS: Pantoprazole 40 mg EC Tab PO SCH (10:40)
[2017-07-19] MEDS: Lactobacillus Acidophilus 500 MU Cap PO SCH ×2 (10:40→18:02)
[2017-07-19] MEDS: Metoprolol Succinate 50 mg XL Tab PO SCH (10:40)
[2017-07-19] MEDS: Lidocaine 5% Patch TD SCH (10:40)
[2017-07-19] MEDS: Potassium Chloride 20 mEq ER Tab PO SCH (10:42)
[2017-07-19 11:38] LABS: BASO % 0.2 % (0.0-2.0); EOS # 0.1 K/uL (0.0-0.7); EOS % 1.3 % (0.0-4.0); LYMPH # 0.4 K/uL (1.0-4.3); LYMPH % 10.6 % (20.0-40.0); MONO # 0.5 K/uL (0.0-0.8); MONO % 12.3 % (0.0-10.0); NEUT # 2.9 K/uL (1.8-7.0); NEUT % 75.6 % (50.0-75.0); NRBC % 0.2 % (0.0-2.0)
[2017-07-19] MEDS ORDERED: Etomidate 20 mg/10ml Inj IV ONE (12:12)
[2017-07-19] MEDS ORDERED: Succinylcholine Chloride 20 mg/ml Syr (5 ml) IV ONE (12:24)
[2017-07-19] MEDS ORDERED: EPINEPHrine 1:1000 Nasal Sol(30mL) ONE (12:31)
--- NOTE | 2017-07-19 13:53 | PCM.SURG1 ---
Surgeon's Initial Post Op Note - Surgeon's Notes Surgeon: Bladimir Mcmillan MD Vehicle Mechanic: Miguel Restrepo PA-C Type of Anesthesia: General Endo, [facility] Pre-Operative Diagnosis: Left knee #1 septic arthritis. #2 inflammatory synovitis. #3 crystal arthropathy/ pseudogout Operative Findings: Left knee #1 septic arthritis. #2 inflammatory synovitis. #3 crystal arthropathy/ pseudogout. #4 deg/complex medial meniscal tear. #5 deg/ complex lateral meniscal tear. #6 chondromalacia trochlea/MFC/LFC, early DJD patella Post-Operative Diagnosis: Left knee #1 septic arthritis. #2 inflammatory synovitis. #3 crystal arthropathy/ pseudogout. #4 deg/complex medial meniscal tear. #5 deg/ complex lateral meniscal tear. #6 chondromalacia trochlea/MFC/ LFC, early DJD patella Operation Performed: Left knee arthroscopic. #1 I&D. #2 extensive synovectomy. #3 synovial biopsy and culture acquisition. #4 partial medial and lateral menisectomies. #5 chondroplasty trochlea Specimen/Specimens Removed: specimen= #1 synovial fluid cultures x4( 3x stat gram stain & culture/ 1x AFB & fungal) to micro lab. #2 synovial biopsy to path. tourniquet time= 29min. implants= none. complications= none Estimated Blood Loss: EBL {In ML}: 3 Blood Products Given: N/A Drains Used: No Drains Post-Op Condition: Good Date of Surgery/Procedure: 07/19/17 Time of Surgery/Procedure: 13:55
[2017-07-19] MEDS ORDERED: Neostigmine Methylsulfate 3mg/3ml Syringe IV ONE (13:56)
--- NOTE | 2017-07-19 14:29 | CP.PCM.CON ---
History of Present Illness - History of Present Illness History of Present Illness: 72 yo female w/ PMH= CHF, ischemic cardiomyopathy s/p CABG & MVR Cardiac arrhythmia, CHF, CAD, hypercholesterolemia, diabetes, HTN, early dementia, COPD presented to the ER at [facility] on 07/12/17 with L knee pain and swelling for a few days. She was admitted to the medical service under Dr. Jordan. Orthopedic consultation was placed,Dr. Kurt Olivia was consulted initially. Under his supervision, the Ortho PA did L knee aspiration and sent specimen for cell count/cx/gram stain/crystal identification on 07/15/17. Aspiration results= + pseudogout crystals, 15k WBC, Cx (+) staph A In the interim, she was also being treated for possible infected MVR with IV abx as well. Once the Cx came back (+) in the setting of + crystals and (-) cell count, repeat aspiration was conducted on 07/17/17= WBC 225K, 3 specimen (+) Staph A. At that point in time, Dr. Olivia was away and the case was confirmed to be septic knee. I was asked to take over tx of the pt 07/18/17 and take her to OR 07/19/17. Review of x-rays: L knee: + sclerotic area at proximal tibia metadiaphysis, no fracture/dx, + early deg changes and medial joint narrowing MRI not done yet. Past Patient History - Infectious Disease Hx of Infectious Diseases: None - Past Medical History & Family History Past Medical History?: Yes - Past Social History Smoking Status: Never Smoked - CARDIAC Hx Atrial Fibrillation: Yes Hx Cardia Arrhythmia: Yes Hx Congestive Heart Failure: Yes Hx Hypercholesterolemia: Yes Hx Hypertension: Yes - PULMONARY Hx Chronic Obstructive Pulmonary Disease (COPD): Yes - NEUROLOGICAL Hx Dementia: Yes - HEENT Hx HEENT Problems: No - RENAL Hx Chronic Kidney Disease: No - ENDOCRINE/METABOLIC Hx Endocrine Disorders: Yes Hx Diabetes Mellitus Type 2: Yes - HEMATOLOGICAL/ONCOLOGICAL Hx Anemia: Yes - INTEGUMENTARY Hx Dermatological Problems: No - MUSCULOSKELETAL/RHEUMATOLOGICAL Hx Arthritis: Yes Hx Falls: No Hx Osteoporosis: Yes Hx Rheumatoid Arthritis: Yes - GASTROINTESTINAL Hx Gastrointestinal Disorders: Yes Hx Ulcer: Yes Other/Comment: appendectomy history of endoscopies. ventral hernia - GENITOURINARY/GYNECOLOGICAL Hx Sexually Transmitted Disorders: No - PSYCHIATRIC Hx Substance Use: No - SURGICAL HISTORY Hx Appendectomy: Yes Hx Coronary Artery Bypass Graft: Yes Hx Coronary Stent: Yes - ANESTHESIA Hx Anesthesia: Yes Hx Anesthesia Reactions: No Hx Malignant Hyperthermia: No Meds Allergies/Adverse Reactions: Allergies Allergy/AdvReac Type Severity Reaction Status Date / Time No Known Allergies Allergy Verified 07/12/17 18:07 - Medications Medications: Current Medications Acetaminophen (Tylenol 325mg Tab) 650 mg PO Q8H PRN PRN Reason: Pain, Mild (1-3) Last Admin: 07/17/17 14:18 Dose: 650 mg Enoxaparin Sodium (Lovenox) 69 mg SC DAILY [facility] Last Admin: 07/18/17 11:11 Dose: 69 mg Home Med (Etanercept [Enbrel]) 50 mg SC QWK [facility] Hydromorphone HCl (Dilaudid) 0.3 mg IVP Q10M PRN PRN Reason: Pain, moderate (4-7) Stop: 07/19/17 15:46 Cefazolin Sodium/Dextrose (Ancef Iv 2 Gm Duplex) 2 gm in 50 mls @ 100 mls/hr IVPB Q8H [facility] Last Admin: 07/19/17 06:18 Dose: 100 mls/hr Clindamycin Phosphate 300 mg/ (Sodium Chloride) 102 mls @ 104 mls/hr IVPB Q6H [facility] Last Admin: 07/19/17 10:40 Dose: 104 mls/hr Insulin Aspart (Novolog) 0 unit SC ACHS [facility] PRN Reason: Protocol Last Admin: 07/19/17 11:11 Dose: Not Given Lactobacillus Acidophilus (Bacid Acidophilus) 1 cap PO BID [facility] Last Admin: 07/19/17 10:40 Dose: 1 cap Lidocaine (Lidoderm) 1 ea TD DAILY [facility] Last Admin: 07/19/17 10:40 Dose: 1 ea Losartan Potassium (Cozaar) 25 mg PO DAILY [facility] Last Admin: 07/19/17 10:40 Dose: 25 mg Memantine (Namenda) 10 mg PO BID [facility] Last Admin: 07/19/17 10:40 Dose: 10 mg Metformin HCl (Glucophage) 1,000 mg PO DAILY [facility] Last Admin: 07/19/17 10:40 Dose: Not Given Metoprolol Succinate (Toprol Xl) 50 mg PO DAILY [facility] Last Admin: 07/19/17 10:40 Dose: 50 mg Nitroglycerin (Nitro-Dur 0.2 Mg/Hr Patch) 1 patch TD DAILY [facility] Last Admin: 07/19/17 10:39 Dose: 1 patch Nitroglycerin (Nitrostat Sl Tab) 0.4 mg SL Q5M PRN PRN Reason: chest pain Ondansetron HCl (Zofran Inj) 4 mg IVP ONCE PRN PRN Reason: Nausea/Vomiting Oxycodone/Acetaminophen (Percocet 5/325 Mg Tab) 2 tab PO Q4H PRN PRN Reason: Pain, severe (8-10) Stop: 07/22/17 13:42 Pantoprazole Sodium (Protonix Ec Tab) 40 mg PO DAILY [facility] Last Admin: 07/19/17 10:40 Dose: 40 mg Potassium Chloride (K-Dur 20 Meq Er Tab) 20 meq PO DAILY [facility] Last Admin: 07/19/17 10:42 Dose: 20 meq Rosuvastatin Calcium (Crestor) 2.5 mg PO HS [facility] Last Admin: 07/18/17 21:35 Dose: 2.5 mg Sitagliptin Phosphate (Januvia) 50 mg PO DAILY [facility] Last Admin: 07/19/17 10:40 Dose: Not Given Tramadol HCl (Ultram) 50 mg PO Q8H PRN PRN Reason: Pain, moderate (4-7) Last Admin: 07/19/17 07:38 Dose: 50 mg Physical Exam - Extremities Exam Additional comments: Right Lower Extremity: -ttp, - swelling/warmth/redness, skin intact, full range of motion at all joints without pain,no instability +5/5 motor strength hip flexion/extension, knee flexion/extension, ankle dorsiflexion/plantar flexion, toes up and down Sensory intact L2-S1, DPN/TN/SPN 2+ dorsalis pedis pulse, brisk cap refill all toes Left lower extremity: + + Global TTP at knee, knee has 2+ swelling with warmth and redness, not able to tolerate any range of motion at the knee, skin intact +5/5 motor strength hip flexion/extension, ankle dorsiflexion/plantarflexion, toes up and down not able to exhibit any motor/active range of motion at knee due to pain Sensory intact L2-S1, DPN/TN/SPN 2+ dorsalis pedis pulse, brisk cap refill all toes Results - Vital Signs Recent Vital Signs: Last Vital Signs Temp 98 F 07/19/17 08:32 Pulse 60 07/19/17 08:42 Resp 20 07/19/17 08:32 BP 128/85 07/19/17 08:32 Pulse Ox 100 07/19/17 08:32 - Labs Result Diagrams: 07/24/17 07:18 07/24/17 07:18 Labs: Laboratory Results - last 24 hr 07/18/17 07/18/17 07/18/17 16:48 19:47 20:59 WBC RBC Hgb Hct MCV MCH MCHC RDW Plt Count MPV Neut % (Auto) Lymph % (Auto) [place] % (Auto) Eos % (Auto) Baso % (Auto) Neut # (Auto) Lymph # (Auto) [place] # (Auto) Eos # (Auto) Baso # (Auto) PT INR Sodium 118 L* Potassium 4.6 Chloride 80 L Carbon Dioxide 31 H Anion Gap 12 BUN 25 H Creatinine 0.8 Est GFR ( Amer) > 60 Est GFR (Non-Af Amer) > 60 POC Glucose (mg/dL) 80 97 Random Glucose 81 Calcium 7.7 L Total Bilirubin AST ALT Alkaline Phosphatase Total Protein Albumin Globulin Albumin/Globulin Ratio 07/19/17 07/19/17 07/19/17 00:36 06:37 07:12 WBC 3.8 L RBC 3.26 L Hgb 9.8 L Hct 28.6 L MCV 87.8 MCH 30.0 MCHC 34.1 RDW 16.7 H Plt Count 270 MPV 8.8 Neut % (Auto) 75.6 H Lymph % (Auto) 10.6 L [place] % (Auto) 12.3 H Eos % (Auto) 1.3 Baso % (Auto) 0.2 Neut # (Auto) 2.9 Lymph # (Auto) 0.4 L [place] # (Auto) 0.5 Eos # (Auto) 0.1 Baso # (Auto) 0.0 PT INR Sodium 121 L Potassium 3.9 Chloride 82 L Carbon Dioxide 32 H Anion Gap 10 BUN 22 H Creatinine 0.8 Est GFR ( Amer) > 60 Est GFR (Non-Af Amer) > 60 POC Glucose (mg/dL) 80 Random Glucose 75 Calcium 7.9 L Total Bilirubin AST ALT Alkaline Phosphatase Total Protein Albumin Globulin Albumin/Globulin Ratio 07/19/17 07/19/17 07/19/17 07:12 10:25 11:11 WBC RBC Hgb Hct MCV MCH MCHC RDW Plt Count MPV Neut % (Auto) Lymph % (Auto) [place] % (Auto) Eos % (Auto) Baso % (Auto) Neut # (Auto) Lymph # (Auto) [place] # (Auto) Eos # (Auto) Baso # (Auto) PT 13.8 H INR 1.2 Sodium 126 L Potassium 3.8 Chloride 86 L Carbon Dioxide 34 H Anion Gap 9 L BUN 19 H Creatinine 0.8 Est GFR ( Amer) > 60 Est GFR (Non-Af Amer) > 60 POC Glucose (mg/dL) 92 Random Glucose 79 Calcium 8.0 L Total Bilirubin 0.6 AST 35 ALT 13 Alkaline Phosphatase 117 Total Protein 6.9 Albumin 2.5 L Globulin 4.4 H Albumin/Globulin Ratio 0.6 L Assessment & Plan (1) Septic arthritis of knee, left Assessment and Plan: 72 yo Female w/ multiple PMH presented to ER at w/ L knee pain, aspirated by Ortho PA, aspirate + crystals / pseudogout, grew Satph, aspirated 2nd time, all 3 specimen cultures + Staph, WBC > 225,000 in cell count Dx= L knee #1 septic arthritis #2 inflammatory crystal arthropathy & synovitis/ pseudogout #3 early DJD changes s/p aspiration 07/15/17 (-) cell count, + pseudogout crystals, 1 specimen (+) culture/ Staph A s/p repeat aspiration 07/17/17 yielding 3x (+) cultures staph, + cell count/WBC 250,000 PLAN: L knee: -clinically, at this point, she has developed septic knee -Dr. Olivia who was the original orthopedic surgeon on consult is away and I am taking over care -indicated for arthroscopic I&D, extensive synovectomy, synovial biopsy, and all related indicated procedures including partial menisectomies -there is no MRI done during this admission or recently to identify other inra- articular pathology that would benefit from arthroscopic surgery aside from the septic joint and synovitis/ pseudogout -therefore, while under anesthesia for the emergent procedure, we will consider all indicated arthroscopic procedures as well as long as the pt is stable under anesthesia and there is no significant delay in surgical time -she has multiple medical problems including low EF / cardiac risk and she understands this going into the procedure -with the use of a Portuguese speaking associate programmer analyst, the risks, benefits, alternatives to the surgery d/w pt at length, after all questions answered, she accepts the risks and wishes to proceed with surgery, she is also requesting that we do as much as possible to treat all the pathology in the knee within reason -I personally spoke with the PCP on the admission, Dr. Jordan, she is aware is has provided medical clearance for the surgery as an emergent surgery to treat septic knee -we will send specimen for repeat cultures and biopsy as well -initial x-rays done on admission show questionable proximal tibia sclerotic area, recommend MRI with contrast to r/o osteomyelitis post-op -follow ID recs -pain control -hold DVT proph -NPO after MN -placed on schedule for surgery to follow my elective cases in OR tomorrow morning. -please contact me with any questions, concerns, updates at [phone] Thank you for allowing me to contribute to the care of your pt. Bladimir Mcmillan MD Orthopedic Surgery Status: Acute
[2017-07-19 17:06] LABS: ALB/GLOB RATIO 0.6 (1.0-2.1); ALBUMIN 2.5 g/dL (3.5-5.0); ALT/SGPT 14 U/L (9-52); AST/SGOT 29 U/L (14-36); BLOOD UREA NITROGEN 16 mg/dL (7-17); GFR AFRICAN-AMERICAN > 60; GFR NON-AFRICAN AMERICAN > 60
--- NOTE | 2017-07-19 19:19 | CP.PCM.PN ---
Subjective - Date & Time of Evaluation Date of Evaluation: 07/19/17 Time of Evaluation: 12:00 - Subjective Subjective: Unable to see patient as she went to OR; labs reviewed, hyponatremia improved after giving stat dose of tolvaptan late last night in prep for OR: obtaining another bmp after patient comes back from OR; Objective - Vital Signs/Intake and Output Vital Signs (last 24 hours): Temp Pulse Resp BP Pulse Ox 97.5 F L 58 L 20 116/67 100 07/19/17 15:00 07/19/17 16:00 07/19/17 15:00 07/19/17 15:00 07/19/17 15:00 Intake and Output: 07/19/17 07/20/17 18:59 06:59 Intake Total 452 Output Total 400 Balance 52 - Medications Medications: Current Medications Acetaminophen (Tylenol 325mg Tab) 650 mg PO Q8H PRN PRN Reason: Pain, Mild (1-3) Last Admin: 07/17/17 14:18 Dose: 650 mg Enoxaparin Sodium (Lovenox) 69 mg SC DAILY [facility] Last Admin: 07/18/17 11:11 Dose: 69 mg Home Med (Etanercept [Enbrel]) 50 mg SC QWK [facility] Cefazolin Sodium/Dextrose (Ancef Iv 2 Gm Duplex) 2 gm in 50 mls @ 100 mls/hr IVPB Q8H [facility] Last Admin: 07/19/17 06:18 Dose: 100 mls/hr Clindamycin Phosphate 300 mg/ (Sodium Chloride) 102 mls @ 104 mls/hr IVPB Q6H [facility] Last Admin: 07/19/17 17:00 Dose: 104 mls/hr Insulin Aspart (Novolog) 0 unit SC ACHS [facility] PRN Reason: Protocol Last Admin: 07/19/17 17:32 Dose: Not Given Lactobacillus Acidophilus (Bacid Acidophilus) 1 cap PO BID [facility] Last Admin: 07/19/17 18:02 Dose: Not Given Lidocaine (Lidoderm) 1 ea TD DAILY [facility] Last Admin: 07/19/17 10:40 Dose: 1 ea Losartan Potassium (Cozaar) 25 mg PO DAILY [facility] Last Admin: 07/19/17 10:40 Dose: 25 mg Memantine (Namenda) 10 mg PO BID [facility] Last Admin: 07/19/17 18:02 Dose: Not Given Metformin HCl (Glucophage) 1,000 mg PO DAILY [facility] Last Admin: 07/19/17 10:40 Dose: Not Given Metoprolol Succinate (Toprol Xl) 50 mg PO DAILY [facility] Last Admin: 07/19/17 10:40 Dose: 50 mg Nitroglycerin (Nitro-Dur 0.2 Mg/Hr Patch) 1 patch TD DAILY [facility] Last Admin: 07/19/17 10:39 Dose: 1 patch Nitroglycerin (Nitrostat Sl Tab) 0.4 mg SL Q5M PRN PRN Reason: chest pain Ondansetron HCl (Zofran Inj) 4 mg IVP ONCE PRN PRN Reason: Nausea/Vomiting Oxycodone/Acetaminophen (Percocet 5/325 Mg Tab) 2 tab PO Q4H PRN PRN Reason: Pain, severe (8-10) Stop: 07/22/17 13:42 Pantoprazole Sodium (Protonix Ec Tab) 40 mg PO DAILY [facility] Last Admin: 07/19/17 10:40 Dose: 40 mg Potassium Chloride (K-Dur 20 Meq Er Tab) 20 meq PO DAILY [facility] Last Admin: 07/19/17 10:42 Dose: 20 meq Rosuvastatin Calcium (Crestor) 2.5 mg PO HS [facility] Last Admin: 07/18/17 21:35 Dose: 2.5 mg Sitagliptin Phosphate (Januvia) 50 mg PO DAILY [facility] Last Admin: 07/19/17 10:40 Dose: Not Given Tramadol HCl (Ultram) 50 mg PO Q8H PRN PRN Reason: Pain, moderate (4-7) Last Admin: 07/19/17 07:38 Dose: 50 mg - Labs Labs: 07/19/17 07:12 07/19/17 16:41 PT 13.8 SECONDS (9.7-12.2) H 07/19/17 10:25 INR 1.2 07/19/17 10:25 APTT 26 SECONDS (21-34) 07/16/17 09:14 Assessment and Plan (1) Hyponatremia Assessment & Plan: Serum Na increased as desired following tolvpatan dose last night; need to keep on PO 1L fluid restriction; Status: Acute (2) Metabolic alkalosis Assessment & Plan: Due to volume contraction, minimally improved following small amount of saline administration; will benefit from being on aldactone once serum Na stabilizes; Status: Acute (3) CHF (congestive heart failure) Assessment & Plan: Severe systolic dysfunction; will benefit from being on lasix and aldactone combo, can start tomorrow; Status: Acute (4) Septic arthritis of knee, left Assessment & Plan: With severe knee pain at times; should avoid NSAIDS (ketorolac) as it can worsen hyponatremia; Status: Acute
--- NOTE | 2017-07-19 20:03 | CP.PCM.PN ---
Subjective - Date & Time of Evaluation Date of Evaluation: 07/19/17 Time of Evaluation: 20:03 - Subjective Subjective: pt seen post -operativly 07/18/17 VSS C/O PAIN S/P LEFT KNEE ARTHROSCOPY AND EXTENSIVE SYNOVECTOMY AND BIOPSY AND CULTURES LABS; REVIEWED. SODIUM 130 LEFT KNEE ASPIRATE REPEAT 07/17/17 X2 -+VE FOR STAPHYLOCOCCAL AUREUS. Objective - Vital Signs/Intake and Output Vital Signs (last 24 hours): Temp Pulse Resp BP Pulse Ox 97.5 F L 58 L 20 116/67 100 07/19/17 15:00 07/19/17 16:00 07/19/17 15:00 07/19/17 15:00 07/19/17 15:00 Intake and Output: 07/19/17 07/20/17 18:59 06:59 Intake Total 452 Output Total 400 Balance 52 - Medications Medications: Current Medications Acetaminophen (Tylenol 325mg Tab) 650 mg PO Q8H PRN PRN Reason: Pain, Mild (1-3) Last Admin: 07/17/17 14:18 Dose: 650 mg Enoxaparin Sodium (Lovenox) 69 mg SC DAILY [facility] Last Admin: 07/18/17 11:11 Dose: 69 mg Home Med (Etanercept [Enbrel]) 50 mg SC QWK [facility] Cefazolin Sodium/Dextrose (Ancef Iv 2 Gm Duplex) 2 gm in 50 mls @ 100 mls/hr IVPB Q8H [facility] Last Admin: 07/19/17 06:18 Dose: 100 mls/hr Clindamycin Phosphate 300 mg/ (Sodium Chloride) 102 mls @ 104 mls/hr IVPB Q6H [facility] Last Admin: 07/19/17 17:00 Dose: 104 mls/hr Insulin Aspart (Novolog) 0 unit SC ACHS [facility] PRN Reason: Protocol Last Admin: 07/19/17 17:32 Dose: Not Given Lactobacillus Acidophilus (Bacid Acidophilus) 1 cap PO BID [facility] Last Admin: 07/19/17 18:02 Dose: Not Given Lidocaine (Lidoderm) 1 ea TD DAILY [facility] Last Admin: 07/19/17 10:40 Dose: 1 ea Losartan Potassium (Cozaar) 25 mg PO DAILY [facility] Last Admin: 07/19/17 10:40 Dose: 25 mg Memantine (Namenda) 10 mg PO BID [facility] Last Admin: 07/19/17 18:02 Dose: Not Given Metformin HCl (Glucophage) 1,000 mg PO DAILY [facility] Last Admin: 07/19/17 10:40 Dose: Not Given Metoprolol Succinate (Toprol Xl) 50 mg PO DAILY [facility] Last Admin: 07/19/17 10:40 Dose: 50 mg Nitroglycerin (Nitro-Dur 0.2 Mg/Hr Patch) 1 patch TD DAILY [facility] Last Admin: 07/19/17 10:39 Dose: 1 patch Nitroglycerin (Nitrostat Sl Tab) 0.4 mg SL Q5M PRN PRN Reason: chest pain Ondansetron HCl (Zofran Inj) 4 mg IVP ONCE PRN PRN Reason: Nausea/Vomiting Oxycodone/Acetaminophen (Percocet 5/325 Mg Tab) 2 tab PO Q4H PRN PRN Reason: Pain, severe (8-10) Stop: 07/22/17 13:42 Pantoprazole Sodium (Protonix Ec Tab) 40 mg PO DAILY [facility] Last Admin: 07/19/17 10:40 Dose: 40 mg Potassium Chloride (K-Dur 20 Meq Er Tab) 20 meq PO DAILY [facility] Last Admin: 07/19/17 10:42 Dose: 20 meq Rosuvastatin Calcium (Crestor) 2.5 mg PO HS [facility] Last Admin: 07/18/17 21:35 Dose: 2.5 mg Sitagliptin Phosphate (Januvia) 50 mg PO DAILY [facility] Last Admin: 07/19/17 10:40 Dose: Not Given Tramadol HCl (Ultram) 50 mg PO Q8H PRN PRN Reason: Pain, moderate (4-7) Last Admin: 07/19/17 07:38 Dose: 50 mg - Labs Labs: 07/19/17 07:12 07/19/17 16:41 PT 13.8 SECONDS (9.7-12.2) H 07/19/17 10:25 INR 1.2 07/19/17 10:25 APTT 26 SECONDS (21-34) 07/16/17 09:14 - Constitutional Appears: No Acute Distress - Head Exam Head Exam: NORMAL INSPECTION - Eye Exam Eye Exam: EOMI, PERRL - ENT Exam ENT Exam: Mucous Membranes Dry - Neck Exam Neck Exam: Normal Inspection - Respiratory Exam Respiratory Exam: Clear to Ausculation Bilateral - Cardiovascular Exam Cardiovascular Exam: Tachycardia, +S1, +S2 - GI/Abdominal Exam GI & Abdominal Exam: Soft, Normal Bowel Sounds - Extremities Exam Extremities Exam: absent: Calf Tenderness (LEFT KNEE-POST ARTHROSCOPY.) - Neurological Exam Neurological Exam: Awake - Skin Skin Exam: Normal Color, Warm Assessment and Plan - Assessment and Plan (Free Text) Assessment: IMPRESSION; S/P LEFT KNEE ARTHROSCOPY AND SYNOVECTOMY & BX/CULTURES SEPTIC ARTHRITIS LEFT KNEE/WITH PSEUDOGOUT (STAPH.AUREUS +VE+CPPD ) R/O SBE. HX OF CABG /MVR. cONGESTIVE HEART FAILURE. S/P THORACENTESIS. lYMPHOCYTIC EFFUSION aTRIAL FIBRILLATION. DM-2 RHEUMATOID ARTHRITIS/OSTEOPOROSIS BY HISTORY. PLAN CONTINUE iv CLEOCIN 300 MG iv PIGGYBACK EVERY 6 HOURLY X 3 DAYS.07/18/17. Continue iv ANCEF 2 G iv PIGGYBACK EVERY 8 HOURLY. PATIENT HAS HISTORY OF MITRAL VALVE REPLACEMENT. 2-D ECHO RULE OUT VEGETATIONS.- PENDING F/U CULTURES AND BX. ANALGESICSAS PER ORTHO.
[2017-07-19] MEDS ORDERED: Enoxaparin 40 mg Syringe SC SCH (21:16)
[2017-07-19] MEDS: Rosuvastatin Calcium 2.5 mg Tab PO SCH ×2 (21:26→22:09)
[2017-07-19] MEDS: Oxycodone/Acetaminophen 5/325 mg Tab PO PRN (22:07)
--- NOTE | 2017-07-20 01:30 | PN ---
DATE: SUBJECTIVE: The patient was seen and examined on the bedside, early in the morning, sleepy, arousable, moving his all extremities, but left knee is tender. No fever. No chills. No hematuria. No hematochezia. No headache. No dizziness. No chest pain. No palpitation. PHYSICAL EXAMINATION: VITAL SIGNS: Temperature 97.5, pulse 58, blood pressure 116/67, and respiratory rate 20. HEENT: Head, normocephalic and atraumatic. Eyes: PERRLA. Extraocular movements intact. Conjunctivae clear. Nose patent. Mucous membranes moist. NECK: Supple. No carotid bruits, JVD, or thyromegaly. CHEST: Bilaterally symmetrical. HEART: S1 and S2 positive. LUNGS: Clear to auscultation. ABDOMEN: Soft. Bowel sounds positive. No organomegaly. EXTREMITIES: Left knee is tender, otherwise no edema, no cyanosis. NEUROLOGIC: The patient is awake, alert, moving all four extremities. No focal deficit. Obeying simple orders. MEDICATIONS: Ancef, Lactobacillus, clindamycin, Cozaar, Crestor, Glucophage, Januvia, potassium, Lidoderm, Lovenox, Namenda, Nitrostat, NovoLog, Percocet, Protonix, metoprolol, tramadol, and Zofran. LABORATORY DATA: White blood cells 8.8, hemoglobin 9.8, hematocrit 28.6, platelets 270. Sodium 130, potassium 3.8, BUN 16, creatinine 0.7, calcium 8.0. INR 1.2. PT 13.8. ASSESSMENT AND PLAN: Ms. Itz Eli is 72 years old lady with leukopenia, anemia, hyponatremia, hypochloremia, hypocalcemia, has pain in the left knee. Today, went for procedure from Dr. Bladimir Mcmillan, Orthopedic, went for arthroscopic incision and drainage of left knee, actual procedure was arthroscopic irrigation and debridement left knee primary, arthroscopic partial medial and partial lateral meniscectomy, extensive synovectomy, chondroplasty trochlea. Procedures went very well. Lots of time decision done with Dr. Bladimir Mcmillan. The patient has septic arthritis. ID is on the case getting antibiotics. History of a pseudogout, rule out endocarditis, coronary artery disease, mitral valve replacement, congestive heart failure, status post thoracentesis due to pleural effusion, atrial fibrillation, diabetes mellitus, rheumatoid arthritis, osteoporosis. We will continue antibiotics, renal insufficiency, hyponatremia, Dr. Eugene Eddy is on the case. We will follow. Kallie Jordan MD
[2017-07-20] MEDS: Clindamycin 300 MG in Sodium Chloride 0.9% 100 ML IVPB SCH ×4 (05:33→21:29)
[2017-07-20] MEDS: ceFAZolin IV 2 gm in Dextrose 2 GM/50 ML BAG IVPB SCH ×3 (05:34→21:26)
[2017-07-20 07:15] LABS: HEMOGLOBIN 9.4 g/dL (11.0-16.0); MEAN CELL VOLUME 89.1 fL (81.0-99.0); MEAN CORPUSCULAR HEMOGLOBIN 29.5 pg (27.0-31.0); MEAN CORPUSCULAR HGB CONC 33.1 g/dL (33.0-37.0); MEAN PLATELET VOLUME 8.9 fL (7.2-11.7); RBC 3.19 Mil/uL (3.80-5.20); RED CELL DISTRIBUTION WIDTH 16.9 % (11.5-14.5); WHITE BLOOD COUNT 4.1 K/uL (4.8-10.8)
[2017-07-20] MEDS: (Novolog) Insulin Aspart, Recombinant 100 u/ml 10 ml vial SC SCH ×4 (08:15→22:29)
[2017-07-20 08:33] LABS: ALB/GLOB RATIO 0.6 (1.0-2.1); ALBUMIN 2.5 g/dL (3.5-5.0); ALT/SGPT 11 U/L (9-52); AST/SGOT 26 U/L (14-36); BLOOD UREA NITROGEN 13 mg/dL (7-17); CALCIUM 7.9 mg/dl (8.6-10.4); GFR AFRICAN-AMERICAN > 60; GFR NON-AFRICAN AMERICAN > 60
[2017-07-20] MEDS ORDERED: ETANERCEPT 50 MG SC SCH (10:00)
[2017-07-20] MEDS: Potassium Chloride 20 mEq ER Tab PO SCH (10:20)
[2017-07-20] MEDS: Metoprolol Succinate 50 mg XL Tab PO SCH (10:20)
[2017-07-20] MEDS: Lactobacillus Acidophilus 500 MU Cap PO SCH ×2 (10:20→17:21)
[2017-07-20] MEDS: Pantoprazole 40 mg EC Tab PO SCH (10:20)
[2017-07-20] MEDS: Nitroglycerin 0.2 mg/hr Top Patch TD SCH (10:20)
[2017-07-20] MEDS: Lidocaine 5% Patch TD SCH (10:22)
[2017-07-20 10:28] LABS: LYMPH # 0.5 K/uL (1.0-4.3); MONO # 0.5 K/uL (0.0-0.8); NEUT # 3.1 K/uL (1.8-7.0)
[2017-07-20 10:40] LABS: OSMOLALITY,URINE 268 mosm/kg (300-1000)
[2017-07-20] MEDS: Oxycodone/Acetaminophen 5/325 mg Tab PO PRN (13:24)
--- NOTE | 2017-07-20 13:32 | CP.PCM.PN ---
Subjective - Date & Time of Evaluation Date of Evaluation: 07/20/17 Time of Evaluation: 12:00 - Subjective Subjective: the patient seen and examined Lying comfortably in no acute distress Denies any shortness of breath or pain Awaiting pleural fluid analysis Continue present treatment Objective - Vital Signs/Intake and Output Vital Signs (last 24 hours): Temp Pulse Resp BP Pulse Ox 97.8 F 55 L 20 115/73 98 07/20/17 08:00 07/20/17 08:08 07/20/17 08:00 07/20/17 08:00 07/20/17 08:00 Intake and Output: 07/20/17 07/20/17 06:59 18:59 Intake Total 300 260 Output Total 500 Balance 300 -240 - Medications Medications: Current Medications Acetaminophen (Tylenol 325mg Tab) 650 mg PO Q8H PRN PRN Reason: Pain, Mild (1-3) Last Admin: 07/17/17 14:18 Dose: 650 mg Enoxaparin Sodium (Lovenox) 40 mg SC DAILY [facility] Home Med (Etanercept [Enbrel]) 50 mg SC QWK [facility] Cefazolin Sodium/Dextrose (Ancef Iv 2 Gm Duplex) 2 gm in 50 mls @ 100 mls/hr IVPB Q8H [facility] Last Admin: 07/20/17 05:34 Dose: 100 mls/hr Clindamycin Phosphate 300 mg/ (Sodium Chloride) 102 mls @ 104 mls/hr IVPB Q6H [facility] Last Admin: 07/20/17 10:19 Dose: 104 mls/hr Insulin Aspart (Novolog) 0 unit SC ACHS [facility] PRN Reason: Protocol Last Admin: 07/20/17 11:52 Dose: Not Given Lactobacillus Acidophilus (Bacid Acidophilus) 1 cap PO BID [facility] Last Admin: 07/20/17 10:20 Dose: 1 cap Lidocaine (Lidoderm) 1 ea TD DAILY [facility] Last Admin: 07/20/17 10:22 Dose: 1 ea Losartan Potassium (Cozaar) 25 mg PO DAILY [facility] Last Admin: 07/20/17 10:20 Dose: 25 mg Memantine (Namenda) 10 mg PO BID [facility] Last Admin: 07/20/17 10:20 Dose: 10 mg Metformin HCl (Glucophage) 1,000 mg PO DAILY [facility] Last Admin: 07/20/17 10:19 Dose: 1,000 mg Metoprolol Succinate (Toprol Xl) 50 mg PO DAILY [facility] Last Admin: 07/20/17 10:20 Dose: 50 mg Nitroglycerin (Nitro-Dur 0.2 Mg/Hr Patch) 1 patch TD DAILY [facility] Last Admin: 07/20/17 10:20 Dose: 1 patch Nitroglycerin (Nitrostat Sl Tab) 0.4 mg SL Q5M PRN PRN Reason: chest pain Ondansetron HCl (Zofran Inj) 4 mg IVP ONCE PRN PRN Reason: Nausea/Vomiting Oxycodone/Acetaminophen (Percocet 5/325 Mg Tab) 2 tab PO Q4H PRN PRN Reason: Pain, severe (8-10) Stop: 07/22/17 13:42 Last Admin: 07/20/17 13:24 Dose: 2 tab Pantoprazole Sodium (Protonix Ec Tab) 40 mg PO DAILY [facility] Last Admin: 07/20/17 10:20 Dose: 40 mg Potassium Chloride (K-Dur 20 Meq Er Tab) 20 meq PO DAILY [facility] Last Admin: 07/20/17 10:20 Dose: 20 meq Rosuvastatin Calcium (Crestor) 2.5 mg PO HS [facility] Last Admin: 07/19/17 22:09 Dose: 2.5 mg Sitagliptin Phosphate (Januvia) 50 mg PO DAILY [facility] Last Admin: 07/20/17 10:19 Dose: 50 mg Tramadol HCl (Ultram) 50 mg PO Q8H PRN PRN Reason: Pain, moderate (4-7) Last Admin: 07/20/17 08:44 Dose: 50 mg - Labs Labs: 07/20/17 06:39 07/20/17 06:39 PT 13.8 SECONDS (9.7-12.2) H 07/19/17 10:25 INR 1.2 07/19/17 10:25 APTT 26 SECONDS (21-34) 07/16/17 09:14 Assessment and Plan (1) Pleural effusion Status: Acute (2) CHF (congestive heart failure) Status: Acute
--- NOTE | 2017-07-20 20:48 | CP.PCM.PN ---
Subjective - Date & Time of Evaluation Date of Evaluation: 07/20/17 Time of Evaluation: 20:48 - Subjective Subjective: afebrile, c/o pain left knee post operative. denies SOB. DENIES CHEST PAIN LABS REVIEWED. ON IV ABX Objective - Vital Signs/Intake and Output Vital Signs (last 24 hours): Temp Pulse Resp BP Pulse Ox 98.0 F 60 20 112/60 98 07/20/17 15:00 07/20/17 15:00 07/20/17 15:00 07/20/17 17:20 07/20/17 15:00 Intake and Output: 07/20/17 07/21/17 18:59 06:59 Intake Total 260 Output Total 750 Balance -490 - Medications Medications: Current Medications Acetaminophen (Tylenol 325mg Tab) 650 mg PO Q8H PRN PRN Reason: Pain, Mild (1-3) Last Admin: 07/17/17 14:18 Dose: 650 mg Enoxaparin Sodium (Lovenox) 40 mg SC DAILY [facility] Furosemide (Lasix) 20 mg PO BID [facility] Last Admin: 07/20/17 17:20 Dose: 20 mg Home Med (Etanercept [Enbrel]) 50 mg SC QWK [facility] Last Admin: 07/20/17 14:20 Dose: Not Given Cefazolin Sodium/Dextrose (Ancef Iv 2 Gm Duplex) 2 gm in 50 mls @ 100 mls/hr IVPB Q8H [facility] Last Admin: 07/20/17 13:23 Dose: 100 mls/hr Clindamycin Phosphate 300 mg/ (Sodium Chloride) 102 mls @ 104 mls/hr IVPB Q6H [facility] Last Admin: 07/20/17 17:22 Dose: 104 mls/hr Insulin Aspart (Novolog) 0 unit SC ACHS [facility] PRN Reason: Protocol Last Admin: 07/20/17 17:17 Dose: Not Given Lactobacillus Acidophilus (Bacid Acidophilus) 1 cap PO BID [facility] Last Admin: 07/20/17 17:21 Dose: 1 cap Lidocaine (Lidoderm) 1 ea TD DAILY [facility] Last Admin: 07/20/17 10:22 Dose: 1 ea Losartan Potassium (Cozaar) 25 mg PO DAILY [facility] Last Admin: 07/20/17 10:20 Dose: 25 mg Memantine (Namenda) 10 mg PO BID [facility] Last Admin: 07/20/17 17:21 Dose: 10 mg Metformin HCl (Glucophage) 1,000 mg PO DAILY [facility] Last Admin: 07/20/17 10:19 Dose: 1,000 mg Metoprolol Succinate (Toprol Xl) 50 mg PO DAILY [facility] Last Admin: 07/20/17 10:20 Dose: 50 mg Nitroglycerin (Nitro-Dur 0.2 Mg/Hr Patch) 1 patch TD DAILY [facility] Last Admin: 07/20/17 10:20 Dose: 1 patch Nitroglycerin (Nitrostat Sl Tab) 0.4 mg SL Q5M PRN PRN Reason: chest pain Ondansetron HCl (Zofran Inj) 4 mg IVP ONCE PRN PRN Reason: Nausea/Vomiting Oxycodone/Acetaminophen (Percocet 5/325 Mg Tab) 2 tab PO Q4H PRN PRN Reason: Pain, severe (8-10) Stop: 07/22/17 13:42 Last Admin: 07/20/17 13:24 Dose: 2 tab Pantoprazole Sodium (Protonix Ec Tab) 40 mg PO DAILY [facility] Last Admin: 07/20/17 10:20 Dose: 40 mg Potassium Chloride (K-Dur 20 Meq Er Tab) 20 meq PO DAILY [facility] Last Admin: 07/20/17 10:20 Dose: 20 meq Rosuvastatin Calcium (Crestor) 2.5 mg PO HS [facility] Last Admin: 07/19/17 22:09 Dose: 2.5 mg Sitagliptin Phosphate (Januvia) 50 mg PO DAILY [facility] Last Admin: 07/20/17 10:19 Dose: 50 mg Spironolactone (Aldactone) 12.5 mg PO BID [facility] Last Admin: 07/20/17 17:21 Dose: 12.5 mg Tramadol HCl (Ultram) 50 mg PO Q8H PRN PRN Reason: Pain, moderate (4-7) Last Admin: 07/20/17 08:44 Dose: 50 mg - Labs Labs: 07/20/17 06:39 07/20/17 06:39 PT 13.8 SECONDS (9.7-12.2) H 07/19/17 10:25 INR 1.2 07/19/17 10:25 APTT 26 SECONDS (21-34) 07/16/17 09:14 - Constitutional Appears: No Acute Distress - Head Exam Head Exam: NORMAL INSPECTION - Eye Exam Eye Exam: EOMI, PERRL - ENT Exam ENT Exam: Normal Oropharynx - Neck Exam Neck Exam: Normal Inspection - Respiratory Exam Respiratory Exam: Decreased Breath Sounds - Cardiovascular Exam Cardiovascular Exam: REGULAR RHYTHM, +S1, +S2 - GI/Abdominal Exam GI & Abdominal Exam: Soft, Normal Bowel Sounds (+VE VEBTRAL HERNIA) - Extremities Exam Extremities Exam: Pedal Edema (LEFT KNEE POST OPERATIVE.), Tenderness. 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 HX OF CABG /MVR. cONGESTIVE HEART FAILURE. S/P THORACENTESIS. lYMPHOCYTIC EFFUSION aTRIAL FIBRILLATION. HYPONATREMIA- IMPROVED . DM-2 RHEUMATOID ARTHRITIS/OSTEOPOROSIS BY HISTORY. PLAN CONTINUE iv CLEOCIN 300 MG iv PIGGYBACK EVERY 6 HOURLY X 3 DAYS.07/18/17. Continue iv ANCEF 2 G iv PIGGYBACK EVERY 8 HOURLY. PATIENT HAS HISTORY OF MITRAL VALVE REPLACEMENT. 2-D ECHO RULE OUT VEGETATIONS.- PENDING. WILL DISCUSS W CARDIOLOGY. F/U CULTURES AND BX. ANALGESICSAS PER ORTHO.
[2017-07-20] MEDS: Rosuvastatin Calcium 2.5 mg Tab PO SCH (21:26)
--- NOTE | 2017-07-20 23:39 | CP.PCM.PN ---
Subjective - Date & Time of Evaluation Date of Evaluation: 07/20/17 Time of Evaluation: 14:00 - Subjective Subjective: Patient reports feeling well, L knee pain improved, no shortness of breath, tolerating diet; Objective - Vital Signs/Intake and Output Vital Signs (last 24 hours): Temp Pulse Resp BP Pulse Ox 98.0 F 60 20 101/60 97 07/20/17 23:06 07/20/17 23:06 07/20/17 23:06 07/20/17 23:06 07/20/17 23:06 Intake and Output: 07/20/17 07/21/17 18:59 06:59 Intake Total 260 300 Output Total 750 Balance -490 300 - Medications Medications: Current Medications Acetaminophen (Tylenol 325mg Tab) 650 mg PO Q8H PRN PRN Reason: Pain, Mild (1-3) Last Admin: 07/17/17 14:18 Dose: 650 mg Enoxaparin Sodium (Lovenox) 40 mg SC DAILY [facility] Furosemide (Lasix) 20 mg PO BID [facility] Last Admin: 07/20/17 17:20 Dose: 20 mg Home Med (Etanercept [Enbrel]) 50 mg SC QWK [facility] Last Admin: 07/20/17 14:20 Dose: Not Given Cefazolin Sodium/Dextrose (Ancef Iv 2 Gm Duplex) 2 gm in 50 mls @ 100 mls/hr IVPB Q8H [facility] Last Admin: 07/20/17 21:26 Dose: 100 mls/hr Clindamycin Phosphate 300 mg/ (Sodium Chloride) 102 mls @ 104 mls/hr IVPB Q6H [facility] Last Admin: 07/20/17 21:29 Dose: 104 mls/hr Insulin Aspart (Novolog) 0 unit SC ACHS [facility] PRN Reason: Protocol Last Admin: 07/20/17 22:29 Dose: Not Given Lactobacillus Acidophilus (Bacid Acidophilus) 1 cap PO BID [facility] Last Admin: 07/20/17 17:21 Dose: 1 cap Lidocaine (Lidoderm) 1 ea TD DAILY [facility] Last Admin: 07/20/17 10:22 Dose: 1 ea Losartan Potassium (Cozaar) 25 mg PO DAILY [facility] Last Admin: 07/20/17 10:20 Dose: 25 mg Memantine (Namenda) 10 mg PO BID [facility] Last Admin: 07/20/17 17:21 Dose: 10 mg Metformin HCl (Glucophage) 1,000 mg PO DAILY [facility] Last Admin: 07/20/17 10:19 Dose: 1,000 mg Metoprolol Succinate (Toprol Xl) 50 mg PO DAILY [facility] Last Admin: 07/20/17 10:20 Dose: 50 mg Nitroglycerin (Nitro-Dur 0.2 Mg/Hr Patch) 1 patch TD DAILY [facility] Last Admin: 07/20/17 10:20 Dose: 1 patch Nitroglycerin (Nitrostat Sl Tab) 0.4 mg SL Q5M PRN PRN Reason: chest pain Ondansetron HCl (Zofran Inj) 4 mg IVP ONCE PRN PRN Reason: Nausea/Vomiting Oxycodone/Acetaminophen (Percocet 5/325 Mg Tab) 2 tab PO Q4H PRN PRN Reason: Pain, severe (8-10) Stop: 07/22/17 13:42 Last Admin: 07/20/17 13:24 Dose: 2 tab Pantoprazole Sodium (Protonix Ec Tab) 40 mg PO DAILY [facility] Last Admin: 07/20/17 10:20 Dose: 40 mg Potassium Chloride (K-Dur 20 Meq Er Tab) 20 meq PO DAILY [facility] Last Admin: 07/20/17 10:20 Dose: 20 meq Rosuvastatin Calcium (Crestor) 2.5 mg PO HS [facility] Last Admin: 07/20/17 21:26 Dose: 2.5 mg Sitagliptin Phosphate (Januvia) 50 mg PO DAILY [facility] Last Admin: 07/20/17 10:19 Dose: 50 mg Spironolactone (Aldactone) 12.5 mg PO BID [facility] Last Admin: 07/20/17 17:21 Dose: 12.5 mg Tramadol HCl (Ultram) 50 mg PO Q8H PRN PRN Reason: Pain, moderate (4-7) Last Admin: 07/20/17 08:44 Dose: 50 mg - Labs Labs: 07/20/17 06:39 07/20/17 06:39 PT 13.8 SECONDS (9.7-12.2) H 07/19/17 10:25 INR 1.2 07/19/17 10:25 APTT 26 SECONDS (21-34) 07/16/17 09:14 - Constitutional Appears: Non-toxic, No Acute Distress - Eye Exam Eye Exam: Normal appearance. absent: Scleral icterus - ENT Exam ENT Exam: Mucous Membranes Moist - Respiratory Exam Respiratory Exam: Clear to Ausculation Bilateral. absent: Respiratory Distress - Cardiovascular Exam Cardiovascular Exam: RRR, +S1, +S2 - GI/Abdominal Exam GI & Abdominal Exam: Soft. absent: Distended (\), Tenderness - Extremities Exam Additional comments: edema in dependent areas; - Neurological Exam Neurological Exam: Alert, Awake - Psychiatric Exam Psychiatric exam: Normal Affect, Normal Mood. absent: Agitated - Skin Skin Exam: Warm. absent: Cyanosis Assessment and Plan (1) Hyponatremia Assessment & Plan: Stable; continue to monitor; continue 1L daily PO fluid restriction; lasix will help also; Status: Acute (2) Metabolic alkalosis Assessment & Plan: Mild, will benefit from aldactone; Status: Acute (3) CHF (congestive heart failure) Assessment & Plan: With severe systolic dysfunction but currently asymptomatic and with no evidence of volume excess on exam; will keep on small dose of PO lasix (20 mg bid) and aldactone (12.5 mg bid); Status: Acute (4) Septic arthritis of knee, left Status: Acute
[2017-07-21 00:48] LABS: OSMOLALITY,URINE 248 mosm/kg (300-1000)
[2017-07-21] MEDS: Clindamycin 300 MG in Sodium Chloride 0.9% 100 ML IVPB SCH ×4 (05:04→21:39)
[2017-07-21] MEDS: ceFAZolin IV 2 gm in Dextrose 2 GM/50 ML BAG IVPB SCH ×3 (05:56→21:36)
[2017-07-21] MEDS: (Novolog) Insulin Aspart, Recombinant 100 u/ml 10 ml vial SC SCH ×4 (07:02→21:28)
[2017-07-21] MEDS: Pantoprazole 40 mg EC Tab PO SCH (09:49)
[2017-07-21] MEDS: Lactobacillus Acidophilus 500 MU Cap PO SCH ×2 (09:49→17:42)
[2017-07-21] MEDS: Nitroglycerin 0.2 mg/hr Top Patch TD SCH (09:49)
[2017-07-21] MEDS: Potassium Chloride 20 mEq ER Tab PO SCH (09:49)
[2017-07-21] MEDS: Lidocaine 5% Patch TD SCH (09:49)
[2017-07-21] MEDS: Metoprolol Succinate 50 mg XL Tab PO SCH (09:50)
[2017-07-21] MEDS: Oxycodone/Acetaminophen 5/325 mg Tab PO PRN ×2 (10:54→22:47)
[2017-07-21 12:04] LABS: HEMOGLOBIN 10.3 g/dL (11.0-16.0); MEAN CELL VOLUME 89.5 fL (81.0-99.0); MEAN CORPUSCULAR HEMOGLOBIN 29.4 pg (27.0-31.0); MEAN CORPUSCULAR HGB CONC 32.9 g/dL (33.0-37.0); MEAN PLATELET VOLUME 8.9 fL (7.2-11.7); RBC 3.51 Mil/uL (3.80-5.20); RED CELL DISTRIBUTION WIDTH 17.3 % (11.5-14.5); WHITE BLOOD COUNT 4.5 K/uL (4.8-10.8)
[2017-07-21 12:12] LABS: ALB/GLOB RATIO 0.6 (1.0-2.1); ALBUMIN 2.8 g/dL (3.5-5.0); ALT/SGPT < 6 U/L (9-52); AST/SGOT 35 U/L (14-36); BLOOD UREA NITROGEN 13 mg/dL (7-17); CALCIUM 8.3 mg/dl (8.6-10.4); GFR AFRICAN-AMERICAN > 60; GFR NON-AFRICAN AMERICAN > 60; MAGNESIUM 1.4 mg/dL (1.6-2.3)
[2017-07-21 12:36] LABS: LYMPH # 0.6 K/uL (1.0-4.3); MONO # 0.4 K/uL (0.0-0.8); NEUT # 3.4 K/uL (1.8-7.0)
[2017-07-21 12:37] LABS: EOS # 0.1 K/uL (0.0-0.7)
[2017-07-21 16:33] LABS: OSMOLALITY,URINE 255 mosm/kg (300-1000)
[2017-07-21] MEDS: Rosuvastatin Calcium 2.5 mg Tab PO SCH (21:34)
--- NOTE | 2017-07-21 22:39 | CP.PCM.PN ---
Subjective - Date & Time of Evaluation Date of Evaluation: 07/21/17 Time of Evaluation: 12:30 - Subjective Subjective: Patient reports tolerating diet; no sob; adhering to fliud restriction; Objective - Vital Signs/Intake and Output Vital Signs (last 24 hours): Temp Pulse Resp BP Pulse Ox 97.7 F 53 L 20 96/55 L 97 07/21/17 15:44 07/21/17 15:44 07/21/17 15:44 07/21/17 15:44 07/21/17 15:44 Intake and Output: 07/21/17 07/22/17 18:59 06:59 Intake Total 552 200 Output Total 400 Balance 152 200 - Medications Medications: Current Medications Acetaminophen (Tylenol 325mg Tab) 650 mg PO Q8H PRN PRN Reason: Pain, Mild (1-3) Last Admin: 07/17/17 14:18 Dose: 650 mg Enoxaparin Sodium (Lovenox) 40 mg SC DAILY [facility] Furosemide (Lasix) 20 mg PO BID [facility] Last Admin: 07/21/17 17:37 Dose: Not Given Home Med (Etanercept [Enbrel]) 50 mg SC QWK [facility] Last Admin: 07/20/17 14:20 Dose: Not Given Cefazolin Sodium/Dextrose (Ancef Iv 2 Gm Duplex) 2 gm in 50 mls @ 100 mls/hr IVPB Q8H [facility] Last Admin: 07/21/17 21:36 Dose: 100 mls/hr Clindamycin Phosphate 300 mg/ (Sodium Chloride) 102 mls @ 104 mls/hr IVPB Q6H [facility] Last Admin: 07/21/17 21:39 Dose: 104 mls/hr Insulin Aspart (Novolog) 0 unit SC ACHS [facility] PRN Reason: Protocol Last Admin: 07/21/17 21:28 Dose: Not Given Lactobacillus Acidophilus (Bacid Acidophilus) 1 cap PO BID [facility] Last Admin: 07/21/17 17:42 Dose: 1 cap Lidocaine (Lidoderm) 1 ea TD DAILY [facility] Last Admin: 07/21/17 09:49 Dose: 1 ea Losartan Potassium (Cozaar) 25 mg PO DAILY [facility] Last Admin: 07/21/17 09:49 Dose: 25 mg Memantine (Namenda) 10 mg PO BID [facility] Last Admin: 07/21/17 17:42 Dose: 10 mg Metformin HCl (Glucophage) 1,000 mg PO DAILY [facility] Last Admin: 07/21/17 09:53 Dose: Not Given Metoprolol Succinate (Toprol Xl) 50 mg PO DAILY [facility] Last Admin: 07/21/17 09:50 Dose: 50 mg Nitroglycerin (Nitro-Dur 0.2 Mg/Hr Patch) 1 patch TD DAILY [facility] Last Admin: 07/21/17 09:49 Dose: 1 patch Nitroglycerin (Nitrostat Sl Tab) 0.4 mg SL Q5M PRN PRN Reason: chest pain Ondansetron HCl (Zofran Inj) 4 mg IVP ONCE PRN PRN Reason: Nausea/Vomiting Oxycodone/Acetaminophen (Percocet 5/325 Mg Tab) 2 tab PO Q4H PRN PRN Reason: Pain, severe (8-10) Stop: 07/22/17 13:42 Last Admin: 07/21/17 10:54 Dose: 2 tab Pantoprazole Sodium (Protonix Ec Tab) 40 mg PO DAILY [facility] Last Admin: 07/21/17 09:49 Dose: 40 mg Potassium Chloride (K-Dur 20 Meq Er Tab) 20 meq PO DAILY [facility] Last Admin: 07/21/17 09:49 Dose: 20 meq Rosuvastatin Calcium (Crestor) 2.5 mg PO HS [facility] Last Admin: 07/21/17 21:34 Dose: 2.5 mg Sitagliptin Phosphate (Januvia) 50 mg PO DAILY [facility] Last Admin: 07/21/17 09:49 Dose: 50 mg Tramadol HCl (Ultram) 50 mg PO Q8H PRN PRN Reason: Pain, moderate (4-7) Last Admin: 07/20/17 08:44 Dose: 50 mg - Labs Labs: 07/21/17 11:38 07/21/17 11:38 PT 13.8 SECONDS (9.7-12.2) H 07/19/17 10:25 INR 1.2 07/19/17 10:25 APTT 26 SECONDS (21-34) 07/16/17 09:14 - Constitutional Appears: Non-toxic, No Acute Distress - Eye Exam Eye Exam: Normal appearance. absent: Scleral icterus - ENT Exam ENT Exam: Mucous Membranes Moist - Respiratory Exam Respiratory Exam: Clear to Ausculation Bilateral. absent: Respiratory Distress - Cardiovascular Exam Cardiovascular Exam: RRR, +S1, +S2 - GI/Abdominal Exam GI & Abdominal Exam: Soft. absent: Distended, Tenderness - Extremities Exam Additional comments: edema of dependent areas; - Neurological Exam Neurological Exam: Alert, Awake - Psychiatric Exam Psychiatric exam: Normal Affect, Normal Mood. absent: Agitated - Skin Skin Exam: Warm. absent: Cyanosis Assessment and Plan (1) Hyponatremia Assessment & Plan: Slightly worsened; will stop aldactone; continue with lasix 20 mg bid and PO fluid restriction <1L daily; Status: Acute (2) Metabolic alkalosis Assessment & Plan: Slightly improved with aldactone but have to hold as above; Status: Acute (3) CHF (congestive heart failure) Assessment & Plan: Clinically appears euvolemic but keeping on low dose lasix to prevent exacerbation; Status: Acute (4) Septic arthritis of knee, left Status: Acute
--- NOTE | 2017-07-22 01:57 | PN ---
DATE: 07/21/2017 SUBJECTIVE: The patient was seen and examined on the bedside, looking comfortable early in the morning, having breakfast. Her was siting on the bedside also. Still having pain in the left knee; otherwise no nausea, vomiting, or diarrhea. No hematuria, no hematochezia. Tolerating food very well. No headache. No dizziness. No fever. No chills. PHYSICAL EXAMINATION: VITAL SIGNS: Temperature 97.7, pulse 53, respiratory rate 20, blood pressure 97/55, pulse oximetry 97. HEENT: Head normocephalic and atraumatic. Eyes, PERRLA. Extraocular muscles intact. Conjunctivae clear. Nose patent. Mucous membranes moist. NECK: Supple. No carotid bruits. No JVD or thyromegaly. CHEST: Bilaterally symmetrical. HEART: S1 and S2 positive. LUNGS: Clear to auscultation. ABDOMEN: Soft. Bowel sounds positive. No organomegaly. EXTREMITIES: Left knee has dressing and soft cast. Other three extremities, no edema, no cyanosis. MEDICATIONS: Tylenol, Lovenox, Lasix, Enbrel, dextrose, clindamycin, Novolog, Lactobacillus, Lidoderm, Cozaar, Namenda, Glucophage, Toprol, nitro, Zofran, Percocet, Protonix, K-Dur, Crestor, Januvia, tramadol. LABORATORY DATA: White blood cells 4.5, hemoglobin 10.3, hematocrit 31.4, platelets 257. Sodium 127, potassium 4.5, BUN 13, creatinine 0.7, glucose 77. ASSESSMENT AND PLAN: Ms. Alcira Mobley is 72 years lady with hyponatremia, marketing community liaison is on the case, hypochloremia, anemia, metabolic acidosis, congestive heart failure, septic arthritis of the left knee, leukopenia, seen by the marketing community liaison for electrolyte imbalance, getting antibiotics as per Dr. Mejia Avina. History of chronic obstructive pulmonary disease. Status post left knee arthroscopy and synovectomy and biopsy cultures, septic arthritic left knee with pseudogout, Staphylococcus aureus plus calcium pyrophosphate dihydrate deposition, rule out subacute bacterial endocarditis, history of coronary artery bypass graft/mitral valve replacement. Waiting from the patient's distribution collection operator about endocarditis. Rheumatoid arthritis, osteoporosis by history. Continue Ancef. The patient has a history of mitral valve placement, 2D echocardiogram rule out vegetations. Echocardiogram ordered may be they will do on Saturday. We will follow up. Kallie Jordan MD [facility]
[2017-07-22] MEDS: Clindamycin 300 MG in Sodium Chloride 0.9% 100 ML IVPB SCH ×4 (04:29→22:00)
[2017-07-22] MEDS: ceFAZolin IV 2 gm in Dextrose 2 GM/50 ML BAG IVPB SCH ×2 (06:07→15:44)
[2017-07-22] MEDS: (Novolog) Insulin Aspart, Recombinant 100 u/ml 10 ml vial SC SCH ×4 (08:22→22:01)
[2017-07-22] MEDS: Lidocaine 5% Patch TD SCH (09:11)
[2017-07-22] MEDS: Potassium Chloride 20 mEq ER Tab PO SCH (09:11)
[2017-07-22] MEDS: Lactobacillus Acidophilus 500 MU Cap PO SCH ×2 (09:11→17:26)
[2017-07-22] MEDS: Pantoprazole 40 mg EC Tab PO SCH (09:11)
[2017-07-22] MEDS: Metoprolol Succinate 50 mg XL Tab PO SCH (09:11)
[2017-07-22] MEDS: Nitroglycerin 0.2 mg/hr Top Patch TD SCH (09:11)
--- NOTE | 2017-07-22 09:58 | PN ---
DATE: 07/20/2017 SUBJECTIVE: The patient was seen and examined on the bedside, looking comfortable. No nausea, vomiting, or diarrhea. Tolerating food very well. No dysuria. No dyspnea. Still having pain in the left knee. Not in acute distress. No shortness of breath. Wants to go home. Went for procedure yesterday by the Orthopedic. PHYSICAL EXAMINATION: VITAL SIGNS: Temperature 97.8, pulse 55, respiratory 20, blood pressure 150/73, pulse oximetry of 98. HEENT: Head normocephalic and atraumatic. Eyes, PERRLA. Extraocular muscles intact. Conjunctivae clear. Nose patent. Mucous membranes moist.. NECK: Supple. No carotid bruits. No JVD or thyromegaly. CHEST: Bilaterally symmetrical. HEART: S1 and S2 positive. LUNGS: Clear to auscultation. ABDOMEN: Soft. Bowel sounds present. No organomegaly. EXTREMITIES: No edema. No cyanosis. NEUROLOGIC: The patient is awake and alert. Moving all four extremities. No focal deficits. MEDICATIONS: Tylenol, Lovenox, Enbrel, Ancef, clindamycin, NovoLog, lactobacillus acidophilus, Lidoderm, Cozaar, Namenda, Glucophage, Toprol, nitro, Aspirin, Zofran, Percocet, Protonix, K-Dur, Crestor, Januvia, tramadol. LABORATORY DATA: White blood cells 4.1, hemoglobin 9.4, hematocrit 28.4, platelet 279. Sodium 129, potassium 4.1, BUN 30, creatinine 0.3, glucose 98. ASSESSMENT AND PLAN: Ms. Mobley is 72 years old lady with leukopenia, anemia, hyponatremia. Balloon Seller is on the case. Hypokalemia, has pleural effusion, thoracentesis done, still waiting for the pathology. Congestive heart failure, heel wheeler, Dr. Shilo Rowan is on the case. Patient's infectious doctor is Dr. Mejia Avina. Continue antibiotics as per her. Has left knee arthroscopy and extensive synovectomy and cultures. Patient has positive , for Staphylococcus aureus. History of chronic obstructive pulmonary disease, rule out subacute bacterial endocarditis. History of coronary artery bypass graft, mitral valve replacement. The patient has history of mitral valve replacement, 2D echo, rule out vegetative pending. Analgesia. Out of bed, physical therapy. We will follow. Kallie Jordan MD [facility]
[2017-07-22 12:27] LABS: CALCIUM 8.1 mg/dl (8.6-10.4); GFR AFRICAN-AMERICAN > 60; GFR NON-AFRICAN AMERICAN > 60
[2017-07-22 12:34] LABS: ALB/GLOB RATIO 0.5 (1.0-2.1); ALBUMIN 2.6 g/dL (3.5-5.0); ALT/SGPT < 6 U/L (9-52); AST/SGOT 37 U/L (14-36); BLOOD UREA NITROGEN 14 mg/dL (7-17)
[2017-07-22] MEDS ORDERED: Gadodiamide 287 MG/ML VIAL (15ML) IV ONE (13:44)
--- NOTE | 2017-07-22 14:08 | CP.PCM.PN ---
Subjective - Date & Time of Evaluation Date of Evaluation: 07/22/17 Time of Evaluation: 14:08 - Subjective Subjective: CHIEF COMPLAINTS TODAY : AFEBRILE, VSS. S/P OR TODAY 07/22/17 S/P arthroscopic irrigation and debridement left knee. Arthroscopic patellar medial lateral meniscectomy. Extensive synovectomy/ chondroplasty trochlea ROS. HEENT : N. Resp : No SOB wheezing, cough Cardio : No CP, PND orthopnea GI : No abd. Pain, n/v HEAD OF ENGLISH : No headache , focal deficit. Musculoskel : N Ext. : LT.KNEE,LE IN A SUPPORTIVE CAST/AND DRESSING Derm : N Psych : N. PE. Pt. POSTOP, DROWSY V.S As noted in the chart Head ,ear nose,throat and eyes : Normal. Neck : Supple with normal carotids. Lungs: Clear air entry. Heart : S1 & S2 normal . . No murmur. S4 + Abd : Soft non tender with normal bowel sounds. Neuro : Moves all ext. with no localized deficit. Ext : LT.KNEE,LE IN A SUPPORTIVE CAST/AND DRESSING Derm : No rashes or decubitus ulcer. Radiology/Labs . MRI LT KNEE/LE 07/22/17- NOTED.-Large suprapatellar joint effusion?infectious versus inflammatory. ? Acute osteomyelitis-lateral femoral condyle/lateral proximal tibia. ? Avascular necrosis (see full report ) Objective - Vital Signs/Intake and Output Vital Signs (last 24 hours): Temp Pulse Resp BP Pulse Ox 98.2 F 63 20 121/79 98 07/22/17 07:00 07/22/17 07:00 07/22/17 07:00 07/22/17 09:11 07/22/17 07:00 Intake and Output: 07/22/17 07/22/17 06:59 18:59 Intake Total 200 Output Total 500 Balance -300 - Medications Medications: Current Medications Acetaminophen (Tylenol 325mg Tab) 650 mg PO Q8H PRN PRN Reason: Pain, Mild (1-3) Last Admin: 07/17/17 14:18 Dose: 650 mg Enoxaparin Sodium (Lovenox) 40 mg SC DAILY [facility] Furosemide (Lasix) 20 mg PO BID [facility] Last Admin: 07/22/17 09:11 Dose: 20 mg Home Med (Etanercept [Enbrel]) 50 mg SC QWK [facility] Last Admin: 07/20/17 14:20 Dose: Not Given Cefazolin Sodium/Dextrose (Ancef Iv 2 Gm Duplex) 2 gm in 50 mls @ 100 mls/hr IVPB Q8H [facility] Last Admin: 07/22/17 06:07 Dose: 100 mls/hr Clindamycin Phosphate 300 mg/ (Sodium Chloride) 102 mls @ 104 mls/hr IVPB Q6H [facility] Last Admin: 07/22/17 04:29 Dose: 104 mls/hr Insulin Aspart (Novolog) 0 unit SC ACHS [facility] PRN Reason: Protocol Last Admin: 07/22/17 08:22 Dose: Not Given Lactobacillus Acidophilus (Bacid Acidophilus) 1 cap PO BID [facility] Last Admin: 07/22/17 09:11 Dose: 1 cap Lidocaine (Lidoderm) 1 ea TD DAILY [facility] Last Admin: 07/22/17 09:11 Dose: 1 ea Losartan Potassium (Cozaar) 25 mg PO DAILY [facility] Last Admin: 07/22/17 09:11 Dose: 25 mg Memantine (Namenda) 10 mg PO BID [facility] Last Admin: 07/22/17 09:11 Dose: 10 mg Metformin HCl (Glucophage) 1,000 mg PO DAILY [facility] Last Admin: 07/22/17 09:11 Dose: 1,000 mg Metoprolol Succinate (Toprol Xl) 50 mg PO DAILY [facility] Last Admin: 07/22/17 09:11 Dose: 50 mg Nitroglycerin (Nitro-Dur 0.2 Mg/Hr Patch) 1 patch TD DAILY [facility] Last Admin: 07/22/17 09:11 Dose: 1 patch Nitroglycerin (Nitrostat Sl Tab) 0.4 mg SL Q5M PRN PRN Reason: chest pain Ondansetron HCl (Zofran Inj) 4 mg IVP ONCE PRN PRN Reason: Nausea/Vomiting Pantoprazole Sodium (Protonix Ec Tab) 40 mg PO DAILY [facility] Last Admin: 07/22/17 09:11 Dose: 40 mg Potassium Chloride (K-Dur 20 Meq Er Tab) 20 meq PO DAILY [facility] Last Admin: 07/22/17 09:11 Dose: 20 meq Rosuvastatin Calcium (Crestor) 2.5 mg PO HS [facility] Last Admin: 07/21/17 21:34 Dose: 2.5 mg Sitagliptin Phosphate (Januvia) 50 mg PO DAILY [facility] Last Admin: 07/22/17 09:11 Dose: 50 mg Tramadol HCl (Ultram) 50 mg PO Q8H PRN PRN Reason: Pain, moderate (4-7) Last Admin: 07/22/17 00:58 Dose: 50 mg - Labs Labs: 07/21/17 11:38 07/22/17 11:37 PT 13.8 SECONDS (9.7-12.2) H 07/19/17 10:25 INR 1.2 07/19/17 10:25 APTT 26 SECONDS (21-34) 07/16/17 09:14 Assessment and Plan - Assessment and Plan (Free Text) Assessment: IMPRESSION; -S/P ARTHROSCOPIC IRRIGATION/DEBRIDEMENT, LEFT KNEE ARTHROSCOPIC PATELLAR MEDIAL /LATERAL MENISCECTOMY AND EXTENSIVE SYNOVECTOMY/CHONDROPLASTY TROCHLEA 07/22/17 -S/P LEFT KNEE ARTHROSCOPY AND SYNOVECTOMY & BX/CULTURES -SEPTIC ARTHRITIS LEFT KNEE/WITH PSEUDOGOUT /? OSTEOMYLITIS /?AVASCULAR NECROSIS (STAPH.AUREUS(MSSA ) +VE+CPPD ) R/O SBE. -HX OF CABG /MVR. -CONGESTIVE HEART FAILURE. -S/P THORACENTESIS. lYMPHOCYTIC EFFUSION -aTRIAL FIBRILLATION. -HYPONATREMIA- IMPROVING. -DM-2 -RHEUMATOID ARTHRITIS/OSTEOPOROSIS BY HISTORY. PLAN CONTINUE iv CLEOCIN 300 MG iv PIGGYBACK EVERY 6 HOURLY.07/18/17. Continue iv ANCEF 2 G iv PIGGYBACK EVERY 8 HOURLY. ADD IV DAPTOMYCIN 4 MG/KG EVERY 24 HOURLY .07/22/17 while awaiting cultures. PATIENT HAS HISTORY OF MITRAL VALVE REPLACEMENT. 2-D ECHO RULE OUT VEGETATIONS.- PENDING. WILL DISCUSS W CARDIOLOGY. F/U CULTURES ANALGESICSAS PER ORTHO.
--- NOTE | 2017-07-22 14:53 | MRI ---
MRI left knee History: Incision and drainage for septic arthritis. Comparison: X-ray dated 07/12/2017 Technique: Multi-echo multiplanar sequences were performed through the left knee without and with the use of intravenous contrast. Findings: Large enhancing suprapatellar joint effusion which may represent an underlying infectious and or inflammatory joint effusion. Clinical correlation. Prominent signal abnormality seen in the mid to posterior lateral femoral condyle at the articular surface as well as the corresponding adjacent lateral aspect of the lateral proximal tibia demonstrating prominent decreased T1 signal and increased STIR signal with associated postcontrast enhancement concerning for an acute osteomyelitis. Milder signal abnormality seen at the posterior aspect of the medial femoral condyle at the articular surface demonstrating some mild patchy decreased T1 signal with increased STIR signal and mild patchy post-contrast enhancement which may represent developing osteochondral change versus additional etiology. Subtle acute and or early acute infectious and or inflammatory changes cannot entirely be excluded. Some mild patchy increased STIR signal and minimal patchy post-contrast enhancement without gross corresponding T1 signal abnormality seen within the inferior bony patella which may represent some reactive edema and or mild early acute infectious and or inflammatory changes. Clinical correlation. Prominent focal area of bone infarction and or avascular necrosis measuring 3.1 x 2.4 x 3.6 centimeters seen within the medial proximal tibia at the articular surface extending to the proximal medullary cavity. At the articular surface, there is additional signal abnormality demonstrating decreased T1 signal and increased STIR signal which may represent some osteochondral change and or mild subchondral flattening. Thinning and attenuation of the visualized anterior cruciate ligament suggestive for partial tearing and or moderate grade sprain. Thickening with increased signal seen at the proximal attachment of the posterior cruciate ligament suggestive for a moderate to high-grade sprain and or partial tear. Globular increased signal seen within the posterior horn of the medial meniscus extending to the superior articular surface suggestive for a tear. Linear increased signal seen within the posterior horn of the lateral meniscus extending to the articular surface suggestive for a tear. High-grade sprain and or partial tearing of the medial collateral ligament. Prominent partial tearing and or high grade sprain of the proximal attachment of the fibular collateral ligament. Reactive edema seen within the popliteus muscle and distal tendon insertion suggestive for a myositis and tendinopathy. Quadriceps tendon is preserved. Patellar tendon is preserved. Focal cartilage thinning and loss overlying the lateral patellar facet as well as the medial and lateral compartments of the femorotibial joint space. Impression: 1. Large enhancing suprapatellar joint effusion which may represent an underlying infectious and or inflammatory joint effusion. Clinical correlation. 2. Prominent signal abnormality seen in the mid to posterior lateral femoral condyle at the articular surface as well as the corresponding adjacent lateral aspect of the lateral proximal tibia demonstrating prominent decreased T1 signal and increased STIR signal with associated postcontrast enhancement concerning for an acute osteomyelitis. Clinical correlation. 3. Milder signal abnormality seen at the posterior aspect of the medial femoral condyle at the articular surface demonstrating some mild patchy decreased T1 signal with increased STIR signal and mild patchy post-contrast enhancement which may represent developing osteochondral change versus additional etiology. Subtle acute and or early acute infectious and or inflammatory changes cannot entirely be excluded. 4. Some mild patchy increased STIR signal and minimal patchy post-contrast enhancement without gross corresponding T1 signal abnormality seen within the inferior bony patella which may represent some reactive edema and or mild early acute infectious and or inflammatory changes. Clinical correlation. 5. Prominent focal area of bone infarction and or avascular necrosis measuring 3.1 x 2.4 x 3.6 centimeters seen within the medial proximal tibia at the articular surface extending to the proximal medullary cavity. At the articular surface, there is additional signal abnormality demonstrating decreased T1 signal and increased STIR signal which may represent some osteochondral change and or mild subchondral flattening. 6. Thinning and attenuation of the visualized anterior cruciate ligament suggestive for partial tearing and or moderate grade sprain. 7. Thickening with increased signal seen at the proximal attachment of the posterior cruciate ligament suggestive for a moderate to high-grade sprain and or partial tear. 8. Globular increased signal seen within the posterior horn of the medial meniscus extending to the superior articular surface suggestive for a tear. 9. Linear increased signal seen within the posterior horn of the lateral meniscus extending to the articular surface suggestive for a tear. 10. High-grade sprain and or partial tearing of the medial collateral ligament. 11. Prominent partial tearing and or high grade sprain of the proximal attachment of the fibular collateral ligament. 12. Reactive edema seen within the popliteus muscle and distal tendon insertion suggestive for a myositis and tendinopathy. 13. Focal cartilage thinning and loss overlying the lateral patellar facet as well as the medial and lateral compartments of the femorotibial joint space.
[2017-07-22] MEDS ORDERED: Dextrose 50% VIAL Inj (50 ml) IV ONE (17:22)
--- NOTE | 2017-07-22 19:56 | CP.PCM.PN ---
Subjective - Date & Time of Evaluation Date of Evaluation: 07/22/17 Time of Evaluation: 13:00 - Subjective Subjective: Patient reportedly with very little PO intake; Objective - Vital Signs/Intake and Output Vital Signs (last 24 hours): Temp Pulse Resp BP Pulse Ox 97.9 F 61 20 115/77 94 L 07/22/17 15:00 07/22/17 16:00 07/22/17 15:00 07/22/17 15:00 07/22/17 15:00 - Medications Medications: Current Medications Acetaminophen (Tylenol 325mg Tab) 650 mg PO Q8H PRN PRN Reason: Pain, Mild (1-3) Last Admin: 07/17/17 14:18 Dose: 650 mg Enoxaparin Sodium (Lovenox) 40 mg SC DAILY [facility] Furosemide (Lasix) 20 mg PO BID [facility] Last Admin: 07/22/17 09:11 Dose: 20 mg Home Med (Etanercept [Enbrel]) 50 mg SC QWK [facility] Last Admin: 07/20/17 14:20 Dose: Not Given Cefazolin Sodium/Dextrose (Ancef Iv 2 Gm Duplex) 2 gm in 50 mls @ 100 mls/hr IVPB Q8H [facility] Last Admin: 07/22/17 15:44 Dose: 100 mls/hr Clindamycin Phosphate 300 mg/ (Sodium Chloride) 102 mls @ 104 mls/hr IVPB Q6H [facility] Last Admin: 07/22/17 17:25 Dose: 104 mls/hr Insulin Aspart (Novolog) 0 unit SC ACHS [facility] PRN Reason: Protocol Last Admin: 07/22/17 17:09 Dose: Not Given Lactobacillus Acidophilus (Bacid Acidophilus) 1 cap PO BID [facility] Last Admin: 07/22/17 17:26 Dose: 1 cap Lidocaine (Lidoderm) 1 ea TD DAILY [facility] Last Admin: 07/22/17 09:11 Dose: 1 ea Losartan Potassium (Cozaar) 25 mg PO DAILY [facility] Last Admin: 07/22/17 09:11 Dose: 25 mg Memantine (Namenda) 10 mg PO BID [facility] Last Admin: 07/22/17 17:26 Dose: 10 mg Metformin HCl (Glucophage) 1,000 mg PO DAILY [facility] Last Admin: 07/22/17 09:11 Dose: 1,000 mg Metoprolol Succinate (Toprol Xl) 50 mg PO DAILY [facility] Last Admin: 07/22/17 09:11 Dose: 50 mg Nitroglycerin (Nitro-Dur 0.2 Mg/Hr Patch) 1 patch TD DAILY [facility] Last Admin: 07/22/17 09:11 Dose: 1 patch Nitroglycerin (Nitrostat Sl Tab) 0.4 mg SL Q5M PRN PRN Reason: chest pain Ondansetron HCl (Zofran Inj) 4 mg IVP ONCE PRN PRN Reason: Nausea/Vomiting Pantoprazole Sodium (Protonix Ec Tab) 40 mg PO DAILY [facility] Last Admin: 07/22/17 09:11 Dose: 40 mg Potassium Chloride (K-Dur 20 Meq Er Tab) 20 meq PO DAILY [facility] Last Admin: 07/22/17 09:11 Dose: 20 meq Rosuvastatin Calcium (Crestor) 2.5 mg PO HS [facility] Last Admin: 07/21/17 21:34 Dose: 2.5 mg Sitagliptin Phosphate (Januvia) 50 mg PO DAILY [facility] Last Admin: 07/22/17 09:11 Dose: 50 mg Tramadol HCl (Ultram) 50 mg PO Q8H PRN PRN Reason: Pain, moderate (4-7) Last Admin: 07/22/17 00:58 Dose: 50 mg - Labs Labs: 07/21/17 11:38 07/22/17 11:37 PT 13.8 SECONDS (9.7-12.2) H 07/19/17 10:25 INR 1.2 07/19/17 10:25 APTT 26 SECONDS (21-34) 07/16/17 09:14 - Constitutional Appears: Non-toxic, No Acute Distress - Respiratory Exam Respiratory Exam: Clear to Ausculation Bilateral. absent: Respiratory Distress - Cardiovascular Exam Cardiovascular Exam: RRR, +S1, +S2 - Extremities Exam Additional comments: edema of dependent areas; - Psychiatric Exam Psychiatric exam: absent: Agitated - Skin Skin Exam: Warm. absent: Cyanosis Assessment and Plan (1) Hyponatremia Assessment & Plan: Again with dropping serum Na; concern for volume depletion in the setting of inadequate PO intake; -holding lasix; will re-check urine lytes to determine if IVF are warranted v giving another dose of tolvaptan; -changing cefazolin to be given in NS rather than D5W (discussed with pharmacy) Status: Acute (2) Metabolic alkalosis Assessment & Plan: Had improved with aldactone, currently held due to worsening hyponatremia and possible volume depletion; Status: Acute (3) CHF (congestive heart failure) Assessment & Plan: Currently appears euvolemic; holding lasix as above; continue with coreg/ losartan to optimize cardiac status; Status: Acute (4) Septic arthritis of knee, left Status: Acute
--- NOTE | 2017-07-22 20:30 | CARD ---
APPROVED REPORT EXAM: Two-dimensional and M-mode echocardiogram with Doppler and color Doppler. Other Information Quality : LimitedRhythm : INDICATION LIMITED ECHO R/O ENDOCARDITIS Mitral Valve E/A ratio0.0 TDI E/Lateral E'0.0E/Medial E'0.0 <Conclusion> LIMITED STUDY VEGETATION ON MV CAN NOT BE EXCLUDED REC. ASTRID TO DEFINE MV/CALCIFIED MITRAL RING
[2017-07-22] MEDS: ceFAZolin 2 GM in Sodium Chloride 0.9% 100 ML IVPB SCH (21:58)
[2017-07-22] MEDS: Rosuvastatin Calcium 2.5 mg Tab PO SCH (22:01)
[2017-07-22] MEDS ORDERED: DAPTOmycin 500 mg Inj (Cubicin) IV SCH (23:45)
--- NOTE | 2017-07-23 02:10 | PN ---
DATE: SUBJECTIVE: The patient is seen and examined on the bedside, looking comfortable. Still having pain in the left knee. Appetite is not appropriate. No hematuria or hematochezia. No headache, no dizziness. No chest pain, no palpitations. No fever, no chills. PHYSICAL EXAMINATION: VITAL SIGNS: Temperature 97.9, pulse 61, respiratory rate 20, blood pressure 115/77, and pulse oximetry 94%. HEENT: Head is normocephalic and atraumatic. Eyes, PERRLA. Extraocular muscles intact. Conjunctivae clear. Nose patent. NECK: Supple. No carotid bruits, JVD, or thyromegaly. CHEST: Bilaterally symmetrical. HEART: S1 and S2 positive. LUNGS: Clear to auscultation. ABDOMEN: Soft, bowel sounds present. No organomegaly. EXTREMITIES: No edema, no cyanosis, except the left knee has bandage. NEUROLOGIC: Awake, alert, follows simple commands. LABORATORY DATA: White blood cell is 4.5, hemoglobin 10.3, hematocrit 31.4, and platelets 257. Sodium 127, potassium 5.2, BUN 40, creatinine 0.7 and glucose 73. MEDICATIONS: Tylenol, Lovenox, Lasix, Enbrel, cefazolin, clindamycin, insulin, Bacid acidophilus, Cozaar, Namenda, Glucophage, Toprol, nitro, Zofran, Protonix, Crestor, Januvia and Ultram. ASSESSMENT AND PLAN: Ms. Alcira Mobley is a 72 years old female with leukopenia, anemia, hyponatremia, hypochloremia, metabolic alkalosis, congestive heart failure. For hyponatremia, according to Nephrology, dropping of sodium is due to volume depletion in the setting of the inadequate p.o. intake. Holding Lasix, we will recheck urine electrolytes to determine if IV fluids are warranted, giving her another dose of Tolvaptan, changing cefazolin to be given in normal saline rather than D5W. Nephrology talked to the pharmacy. Metabolic alkalosis has improved with Aldactone, now hold due to worsening of hyponatremia and possibly volume depletion. Continue Coreg and losartan to optimize cardiac status. Septic arthritis of the left knee. Getting antibiotics as per Infectious Disease Dr. Mejia Avina. Lower extremity MRI done reviewed by me. Discussion with nurse practitioner. Seen by the viscera washer, Dr. Jayesh Gonzalez. The patient has pleural effusion, improved. We will repeat labs and we will follow. Kallie Jordan MD
[2017-07-23] MEDS: Clindamycin 300 MG in Sodium Chloride 0.9% 100 ML IVPB SCH ×4 (03:40→22:44)
[2017-07-23] MEDS: ceFAZolin 2 GM in Sodium Chloride 0.9% 100 ML IVPB SCH ×3 (06:26→21:34)
[2017-07-23 07:13] LABS: BASO % 0.4 % (0.0-2.0); EOS # 0.1 K/uL (0.0-0.7); EOS % 1.3 % (0.0-4.0); HEMOGLOBIN 9.6 g/dL (11.0-16.0); LYMPH # 0.6 K/uL (1.0-4.3); MEAN CELL VOLUME 87.6 fL (81.0-99.0); MEAN CORPUSCULAR HEMOGLOBIN 29.4 pg (27.0-31.0); MEAN CORPUSCULAR HGB CONC 33.5 g/dL (33.0-37.0); MEAN PLATELET VOLUME 8.3 fL (7.2-11.7); MONO # 0.6 K/uL (0.0-0.8); MONO % 13.5 % (0.0-10.0); NEUT # 3.1 K/uL (1.8-7.0); NEUT % 70.8 % (50.0-75.0); NRBC % 0.1 % (0.0-2.0); RBC 3.28 Mil/uL (3.80-5.20); RED CELL DISTRIBUTION WIDTH 16.9 % (11.5-14.5); WHITE BLOOD COUNT 4.3 K/uL (4.8-10.8)
[2017-07-23] MEDS: (Novolog) Insulin Aspart, Recombinant 100 u/ml 10 ml vial SC SCH ×4 (07:43→21:44)
[2017-07-23 08:24] LABS: ALB/GLOB RATIO 0.6 (1.0-2.1); ALBUMIN 2.6 g/dL (3.5-5.0); ALT/SGPT 14 U/L (9-52); AST/SGOT 26 U/L (14-36); BLOOD UREA NITROGEN 12 mg/dL (7-17); CALCIUM 8.1 mg/dl (8.6-10.4); GFR AFRICAN-AMERICAN > 60; GFR NON-AFRICAN AMERICAN > 60
[2017-07-23] MEDS ORDERED: Tolvaptan 15 MG TAB PO ONE (08:53)
[2017-07-23] MEDS: Nitroglycerin 0.2 mg/hr Top Patch TD SCH (10:46)
[2017-07-23] MEDS: Pantoprazole 40 mg EC Tab PO SCH (10:46)
[2017-07-23] MEDS: Lactobacillus Acidophilus 500 MU Cap PO SCH ×2 (10:46→17:15)
[2017-07-23] MEDS: Potassium Chloride 20 mEq ER Tab PO SCH (10:46)
[2017-07-23] MEDS: Lidocaine 5% Patch TD SCH (10:47)
[2017-07-23] MEDS: Metoprolol Succinate 50 mg XL Tab PO SCH (10:47)
[2017-07-23] MEDS ORDERED: Dextrose 50% VIAL Inj (50 ml) IV ONE (11:59)
[2017-07-23] MEDS ORDERED: Dextrose 50% VIAL Inj (50 ml) IV STA (12:00)
--- NOTE | 2017-07-23 17:24 | CP.PCM.PN ---
Subjective - Date & Time of Evaluation Date of Evaluation: 07/23/17 Time of Evaluation: 17:19 - Subjective Subjective: PATIENT AAO X3 PLAN IS TO PLACE A PICC FOR NURSING HOME ABX PER DR CABALLERO BASE ON THE ECHO (LIMITIED STUDY RECOMMENDATION WAS ASTRID TO R/O VEGETATION OF MV) CALL PLACE TO DR GRANADO PATIENT WILL BE HIGH RISK FOR ASTRID DUE TO HER RESP STATUS; WILL TREAT HER WITH SIX WEEK ABX BLLOD CULTURE X 2 SET SENT PENDING FOR RESULT DR CABALLERO AND DR HUNTER WERE NOTIFIED Objective - Vital Signs/Intake and Output Vital Signs (last 24 hours): Temp Pulse Resp BP Pulse Ox 97.4 F L 65 20 110/64 96 07/23/17 15:00 07/23/17 15:00 07/23/17 15:00 07/23/17 15:00 07/23/17 15:00 Intake and Output: 07/23/17 07/23/17 06:59 18:59 Intake Total 1380 Output Total 250 Balance 1130 - Medications Medications: Current Medications Acetaminophen (Tylenol 325mg Tab) 650 mg PO Q8H PRN PRN Reason: Pain, Mild (1-3) Last Admin: 07/23/17 14:24 Dose: 650 mg Enoxaparin Sodium (Lovenox) 40 mg SC DAILY [facility] Furosemide (Lasix) 20 mg PO BID [facility] Last Admin: 07/22/17 09:11 Dose: 20 mg Home Med (Etanercept [Enbrel]) 50 mg SC QWK [facility] Last Admin: 07/20/17 14:20 Dose: Not Given Clindamycin Phosphate 300 mg/ (Sodium Chloride) 102 mls @ 104 mls/hr IVPB Q6H [facility] Last Admin: 07/23/17 16:44 Dose: 104 mls/hr Cefazolin Sodium 2 gm/ Sodium (Chloride) 100 mls @ 100 mls/hr IVPB Q8 [facility] Last Admin: 07/23/17 13:46 Dose: 100 mls/hr Daptomycin 280 mg/ Sodium (Chloride) 100 mls @ 100 mls/hr IV Q24H [facility] Stop: 07/28/17 00:16 Last Admin: 07/23/17 00:59 Dose: 100 mls/hr Insulin Aspart (Novolog) 0 unit SC ACHS [facility] PRN Reason: Protocol Last Admin: 07/23/17 12:20 Dose: Not Given Lactobacillus Acidophilus (Bacid Acidophilus) 1 cap PO BID [facility] Last Admin: 07/23/17 17:15 Dose: 1 cap Lidocaine (Lidoderm) 1 ea TD DAILY [facility] Last Admin: 07/23/17 10:47 Dose: 1 ea Losartan Potassium (Cozaar) 25 mg PO DAILY [facility] Last Admin: 07/23/17 10:47 Dose: 25 mg Memantine (Namenda) 10 mg PO BID [facility] Last Admin: 07/23/17 17:15 Dose: 10 mg Metformin HCl (Glucophage) 1,000 mg PO DAILY [facility] Last Admin: 07/23/17 11:00 Dose: Not Given Metoprolol Succinate (Toprol Xl) 50 mg PO DAILY [facility] Last Admin: 07/23/17 10:47 Dose: 50 mg Nitroglycerin (Nitro-Dur 0.2 Mg/Hr Patch) 1 patch TD DAILY [facility] Last Admin: 07/23/17 10:46 Dose: 1 patch Nitroglycerin (Nitrostat Sl Tab) 0.4 mg SL Q5M PRN PRN Reason: chest pain Ondansetron HCl (Zofran Inj) 4 mg IVP ONCE PRN PRN Reason: Nausea/Vomiting Pantoprazole Sodium (Protonix Ec Tab) 40 mg PO DAILY [facility] Last Admin: 07/23/17 10:46 Dose: 40 mg Potassium Chloride (K-Dur 20 Meq Er Tab) 20 meq PO DAILY [facility] Last Admin: 07/23/17 10:46 Dose: 20 meq Rosuvastatin Calcium (Crestor) 2.5 mg PO HS [facility] Last Admin: 07/22/17 22:01 Dose: 2.5 mg Sitagliptin Phosphate (Januvia) 50 mg PO DAILY [facility] Last Admin: 07/23/17 11:00 Dose: Not Given Tramadol HCl (Ultram) 50 mg PO Q8H PRN PRN Reason: Pain, moderate (4-7) Last Admin: 07/23/17 10:46 Dose: 50 mg - Labs Labs: 07/23/17 06:52 07/23/17 06:52 PT 13.8 SECONDS (9.7-12.2) H 07/19/17 10:25 INR 1.2 07/19/17 10:25 APTT 26 SECONDS (21-34) 07/16/17 09:14
--- NOTE | 2017-07-23 18:04 | CP.PCM.PN ---
Subjective - Date & Time of Evaluation Date of Evaluation: 07/23/17 Time of Evaluation: 16:00 - Subjective Subjective: Patient seen and examined. Working with PT status-post left knee I&D for septic arthritis. Patient denies shortness of breath, chest pain, cough, wheezing. As per pathology, pleural fluid was never received for culture and analysis. Objective - Vital Signs/Intake and Output Vital Signs (last 24 hours): Temp Pulse Resp BP Pulse Ox 97.4 F L 65 20 110/64 96 07/23/17 15:00 07/23/17 15:00 07/23/17 15:00 07/23/17 15:00 07/23/17 15:00 Intake and Output: 07/23/17 07/23/17 06:59 18:59 Intake Total 1380 Output Total 250 Balance 1130 - Medications Medications: Current Medications Acetaminophen (Tylenol 325mg Tab) 650 mg PO Q8H PRN PRN Reason: Pain, Mild (1-3) Last Admin: 07/23/17 14:24 Dose: 650 mg Enoxaparin Sodium (Lovenox) 40 mg SC DAILY [facility] Furosemide (Lasix) 20 mg PO BID [facility] Last Admin: 07/22/17 09:11 Dose: 20 mg Home Med (Etanercept [Enbrel]) 50 mg SC QWK [facility] Last Admin: 07/20/17 14:20 Dose: Not Given Clindamycin Phosphate 300 mg/ (Sodium Chloride) 102 mls @ 104 mls/hr IVPB Q6H [facility] Last Admin: 07/23/17 16:44 Dose: 104 mls/hr Cefazolin Sodium 2 gm/ Sodium (Chloride) 100 mls @ 100 mls/hr IVPB Q8 [facility] Last Admin: 07/23/17 13:46 Dose: 100 mls/hr Daptomycin 280 mg/ Sodium (Chloride) 100 mls @ 100 mls/hr IV Q24H [facility] Stop: 07/28/17 00:16 Last Admin: 07/23/17 00:59 Dose: 100 mls/hr Insulin Aspart (Novolog) 0 unit SC ACHS [facility] PRN Reason: Protocol Last Admin: 07/23/17 12:20 Dose: Not Given Lactobacillus Acidophilus (Bacid Acidophilus) 1 cap PO BID [facility] Last Admin: 07/23/17 17:15 Dose: 1 cap Lidocaine (Lidoderm) 1 ea TD DAILY [facility] Last Admin: 07/23/17 10:47 Dose: 1 ea Losartan Potassium (Cozaar) 25 mg PO DAILY [facility] Last Admin: 07/23/17 10:47 Dose: 25 mg Memantine (Namenda) 10 mg PO BID [facility] Last Admin: 07/23/17 17:15 Dose: 10 mg Metformin HCl (Glucophage) 1,000 mg PO DAILY [facility] Last Admin: 07/23/17 11:00 Dose: Not Given Metoprolol Succinate (Toprol Xl) 50 mg PO DAILY [facility] Last Admin: 07/23/17 10:47 Dose: 50 mg Nitroglycerin (Nitro-Dur 0.2 Mg/Hr Patch) 1 patch TD DAILY [facility] Last Admin: 07/23/17 10:46 Dose: 1 patch Nitroglycerin (Nitrostat Sl Tab) 0.4 mg SL Q5M PRN PRN Reason: chest pain Ondansetron HCl (Zofran Inj) 4 mg IVP ONCE PRN PRN Reason: Nausea/Vomiting Pantoprazole Sodium (Protonix Ec Tab) 40 mg PO DAILY [facility] Last Admin: 07/23/17 10:46 Dose: 40 mg Potassium Chloride (K-Dur 20 Meq Er Tab) 20 meq PO DAILY [facility] Last Admin: 07/23/17 10:46 Dose: 20 meq Rosuvastatin Calcium (Crestor) 2.5 mg PO HS [facility] Last Admin: 07/22/17 22:01 Dose: 2.5 mg Sitagliptin Phosphate (Januvia) 50 mg PO DAILY [facility] Last Admin: 07/23/17 11:00 Dose: Not Given Tramadol HCl (Ultram) 50 mg PO Q8H PRN PRN Reason: Pain, moderate (4-7) Last Admin: 07/23/17 10:46 Dose: 50 mg - Labs Labs: 07/23/17 06:52 07/23/17 06:52 PT 13.8 SECONDS (9.7-12.2) H 07/19/17 10:25 INR 1.2 07/19/17 10:25 APTT 26 SECONDS (21-34) 07/16/17 09:14 Assessment and Plan (1) Pleural effusion Status: Acute (2) CHF (congestive heart failure) Status: Acute
--- NOTE | 2017-07-23 18:04 | CP.PCM.PN ---
Subjective - Date & Time of Evaluation Date of Evaluation: 07/23/17 Time of Evaluation: 18:00 - Subjective Subjective: events noted. echocardiogram reviewed. patient has mitral valve prosthesis. Therefore ASTRID would not add to clinical management as she will require 6 weeks af antibiotic therapy as a precaution regardless of what ASTRID shows. Recommend jail antibiotic therapy Objective - Vital Signs/Intake and Output Vital Signs (last 24 hours): Temp Pulse Resp BP Pulse Ox 97.4 F L 65 20 110/64 96 07/23/17 15:00 07/23/17 15:00 07/23/17 15:00 07/23/17 15:00 07/23/17 15:00 Intake and Output: 07/23/17 07/23/17 06:59 18:59 Intake Total 1380 Output Total 250 Balance 1130 - Medications Medications: Current Medications Acetaminophen (Tylenol 325mg Tab) 650 mg PO Q8H PRN PRN Reason: Pain, Mild (1-3) Last Admin: 07/23/17 14:24 Dose: 650 mg Enoxaparin Sodium (Lovenox) 40 mg SC DAILY [facility] Furosemide (Lasix) 20 mg PO BID [facility] Last Admin: 07/22/17 09:11 Dose: 20 mg Home Med (Etanercept [Enbrel]) 50 mg SC QWK [facility] Last Admin: 07/20/17 14:20 Dose: Not Given Clindamycin Phosphate 300 mg/ (Sodium Chloride) 102 mls @ 104 mls/hr IVPB Q6H [facility] Last Admin: 07/23/17 16:44 Dose: 104 mls/hr Cefazolin Sodium 2 gm/ Sodium (Chloride) 100 mls @ 100 mls/hr IVPB Q8 [facility] Last Admin: 07/23/17 13:46 Dose: 100 mls/hr Daptomycin 280 mg/ Sodium (Chloride) 100 mls @ 100 mls/hr IV Q24H [facility] Stop: 07/28/17 00:16 Last Admin: 07/23/17 00:59 Dose: 100 mls/hr Insulin Aspart (Novolog) 0 unit SC ACHS [facility] PRN Reason: Protocol Last Admin: 07/23/17 12:20 Dose: Not Given Lactobacillus Acidophilus (Bacid Acidophilus) 1 cap PO BID [facility] Last Admin: 07/23/17 17:15 Dose: 1 cap Lidocaine (Lidoderm) 1 ea TD DAILY [facility] Last Admin: 07/23/17 10:47 Dose: 1 ea Losartan Potassium (Cozaar) 25 mg PO DAILY [facility] Last Admin: 07/23/17 10:47 Dose: 25 mg Memantine (Namenda) 10 mg PO BID [facility] Last Admin: 07/23/17 17:15 Dose: 10 mg Metformin HCl (Glucophage) 1,000 mg PO DAILY [facility] Last Admin: 07/23/17 11:00 Dose: Not Given Metoprolol Succinate (Toprol Xl) 50 mg PO DAILY [facility] Last Admin: 07/23/17 10:47 Dose: 50 mg Nitroglycerin (Nitro-Dur 0.2 Mg/Hr Patch) 1 patch TD DAILY [facility] Last Admin: 07/23/17 10:46 Dose: 1 patch Nitroglycerin (Nitrostat Sl Tab) 0.4 mg SL Q5M PRN PRN Reason: chest pain Ondansetron HCl (Zofran Inj) 4 mg IVP ONCE PRN PRN Reason: Nausea/Vomiting Pantoprazole Sodium (Protonix Ec Tab) 40 mg PO DAILY [facility] Last Admin: 07/23/17 10:46 Dose: 40 mg Potassium Chloride (K-Dur 20 Meq Er Tab) 20 meq PO DAILY [facility] Last Admin: 07/23/17 10:46 Dose: 20 meq Rosuvastatin Calcium (Crestor) 2.5 mg PO HS [facility] Last Admin: 07/22/17 22:01 Dose: 2.5 mg Sitagliptin Phosphate (Januvia) 50 mg PO DAILY [facility] Last Admin: 07/23/17 11:00 Dose: Not Given Tramadol HCl (Ultram) 50 mg PO Q8H PRN PRN Reason: Pain, moderate (4-7) Last Admin: 07/23/17 10:46 Dose: 50 mg - Labs Labs: 07/23/17 06:52 07/23/17 06:52 PT 13.8 SECONDS (9.7-12.2) H 07/19/17 10:25 INR 1.2 07/19/17 10:25 APTT 26 SECONDS (21-34) 07/16/17 09:14 Assessment and Plan (1) Systolic dysfunction with acute on chronic heart failure Status: Acute (2) CAD (coronary artery disease) Status: Acute (3) Hypertension Status: Chronic
--- NOTE | 2017-07-23 19:21 | CP.PCM.PN ---
Subjective - Date & Time of Evaluation Date of Evaluation: 07/23/17 Time of Evaluation: 19:21 - Subjective Subjective: CHIEF COMPLAINTS TODAY : POD # 1 AFEBRILE, VSS. CONFUSED AT TIMES S/P OR 07/22/17 S/P arthroscopic irrigation and debridement left knee. Arthroscopic patellar medial lateral meniscectomy. Extensive synovectomy/ chondroplasty trochlea 2D-ECHO FINDINGS NOTED ?MV-VEGETATIONS ?ASTRID CARDIOLOGY FOLLOW-UP NOTED. PATIENT WITH MITRAL VALVE PROSTHESIS TREAT ENDOCARDITIS PER CARDIOLOGY. NO NEED FOR ASTRID. ROS. HEENT : N. Resp : No SOB wheezing, cough Cardio : No CP, PND orthopnea GI : No abd. Pain, n/v STAGE DRIVER : No headache , focal deficit. Musculoskel : N Ext. : LT.KNEE,LE IN A SUPPORTIVE CAST/AND DRESSING Derm : N Psych : N. PE. Pt. POSTOP, DROWSY V.S As noted in the chart Head ,ear nose,throat and eyes : Normal. Neck : Supple with normal carotids. Lungs: Clear air entry. Heart : S1 & S2 normal . . No murmur. S4 + Abd : Soft non tender with normal bowel sounds. Neuro : Moves all ext. with no localized deficit. Ext : LT.KNEE,LE IN A SUPPORTIVE CAST/AND DRESSING Derm : No rashes or decubitus ulcer. Radiology/Labs . MRI LT KNEE/LE 07/22/17- NOTED.-Large suprapatellar joint effusion?infectious versus inflammatory. ? Acute osteomyelitis-lateral femoral condyle/lateral proximal tibia. ? Avascular necrosis (see full report ) Objective - Vital Signs/Intake and Output Vital Signs (last 24 hours): Temp Pulse Resp BP Pulse Ox 97.4 F L 65 20 110/64 96 07/23/17 15:00 07/23/17 15:00 07/23/17 15:00 07/23/17 15:00 07/23/17 15:00 - Medications Medications: Current Medications Acetaminophen (Tylenol 325mg Tab) 650 mg PO Q8H PRN PRN Reason: Pain, Mild (1-3) Last Admin: 07/23/17 14:24 Dose: 650 mg Enoxaparin Sodium (Lovenox) 40 mg SC DAILY [facility] Furosemide (Lasix) 20 mg PO BID [facility] Last Admin: 07/22/17 09:11 Dose: 20 mg Home Med (Etanercept [Enbrel]) 50 mg SC QWK [facility] Last Admin: 07/20/17 14:20 Dose: Not Given Clindamycin Phosphate 300 mg/ (Sodium Chloride) 102 mls @ 104 mls/hr IVPB Q6H [facility] Last Admin: 07/23/17 16:44 Dose: 104 mls/hr Cefazolin Sodium 2 gm/ Sodium (Chloride) 100 mls @ 100 mls/hr IVPB Q8 [facility] Last Admin: 07/23/17 13:46 Dose: 100 mls/hr Daptomycin 280 mg/ Sodium (Chloride) 100 mls @ 100 mls/hr IV Q24H [facility] Stop: 07/28/17 00:16 Last Admin: 07/23/17 00:59 Dose: 100 mls/hr Insulin Aspart (Novolog) 0 unit SC ACHS [facility] PRN Reason: Protocol Last Admin: 07/23/17 12:20 Dose: Not Given Lactobacillus Acidophilus (Bacid Acidophilus) 1 cap PO BID [facility] Last Admin: 07/23/17 17:15 Dose: 1 cap Lidocaine (Lidoderm) 1 ea TD DAILY [facility] Last Admin: 07/23/17 10:47 Dose: 1 ea Losartan Potassium (Cozaar) 25 mg PO DAILY [facility] Last Admin: 07/23/17 10:47 Dose: 25 mg Memantine (Namenda) 10 mg PO BID [facility] Last Admin: 07/23/17 17:15 Dose: 10 mg Metformin HCl (Glucophage) 1,000 mg PO DAILY [facility] Last Admin: 07/23/17 11:00 Dose: Not Given Metoprolol Succinate (Toprol Xl) 50 mg PO DAILY [facility] Last Admin: 07/23/17 10:47 Dose: 50 mg Nitroglycerin (Nitro-Dur 0.2 Mg/Hr Patch) 1 patch TD DAILY [facility] Last Admin: 07/23/17 10:46 Dose: 1 patch Nitroglycerin (Nitrostat Sl Tab) 0.4 mg SL Q5M PRN PRN Reason: chest pain Ondansetron HCl (Zofran Inj) 4 mg IVP ONCE PRN PRN Reason: Nausea/Vomiting Pantoprazole Sodium (Protonix Ec Tab) 40 mg PO DAILY [facility] Last Admin: 07/23/17 10:46 Dose: 40 mg Potassium Chloride (K-Dur 20 Meq Er Tab) 20 meq PO DAILY [facility] Last Admin: 07/23/17 10:46 Dose: 20 meq Rosuvastatin Calcium (Crestor) 2.5 mg PO HS [facility] Last Admin: 07/22/17 22:01 Dose: 2.5 mg Sitagliptin Phosphate (Januvia) 50 mg PO DAILY [facility] Last Admin: 07/23/17 11:00 Dose: Not Given Tramadol HCl (Ultram) 50 mg PO Q8H PRN PRN Reason: Pain, moderate (4-7) Last Admin: 07/23/17 10:46 Dose: 50 mg - Labs Labs: 07/23/17 06:52 07/23/17 06:52 PT 13.8 SECONDS (9.7-12.2) H 07/19/17 10:25 INR 1.2 07/19/17 10:25 APTT 26 SECONDS (21-34) 07/16/17 09:14 - Constitutional Appears: No Acute Distress - Head Exam Head Exam: NORMAL INSPECTION - Eye Exam Eye Exam: EOMI, PERRL - ENT Exam ENT Exam: Normal Oropharynx - Neck Exam Neck Exam: Normal Inspection - Respiratory Exam Respiratory Exam: Decreased Breath Sounds - Cardiovascular Exam Cardiovascular Exam: REGULAR RHYTHM, +S1, +S2 - GI/Abdominal Exam GI & Abdominal Exam: Soft, Normal Bowel Sounds. absent: Organomegaly - Extremities Exam Extremities Exam: Tenderness (LEFT KNEE on palpation.). absent: Calf Tenderness (LT KNEE AND LEG IN DRESSING.) - Neurological Exam Neurological Exam: Awake, CN II-XII Intact - Psychiatric Exam Psychiatric exam: Normal Mood - Skin Skin Exam: Normal Color, Warm Assessment and Plan - Assessment and Plan (Free Text) Assessment: IMPRESSION; -S/P ARTHROSCOPIC IRRIGATION/DEBRIDEMENT, LEFT KNEE ARTHROSCOPIC PATELLAR MEDIAL /LATERAL MENISCECTOMY AND EXTENSIVE SYNOVECTOMY/CHONDROPLASTY TROCHLEA 07/22/17 -S/P LEFT KNEE ARTHROSCOPY AND SYNOVECTOMY & BX/CULTURES -SEPTIC ARTHRITIS LEFT KNEE/WITH PSEUDOGOUT /? OSTEOMYLITIS /?AVASCULAR NECROSIS (STAPH.AUREUS(MSSA ) +VE+CPPD ) - MITRAL VALVE ENDOCARDITIS.(+VE VEGETATIONS could NOT BE RULED OUT ON 2-d ECHO ). -HX OF CABG /MVR. -CONGESTIVE HEART FAILURE. -S/P THORACENTESIS. lYMPHOCYTIC EFFUSION -aTRIAL FIBRILLATION. -HYPONATREMIA- IMPROVING. -DM-2 -RHEUMATOID ARTHRITIS/OSTEOPOROSIS BY HISTORY. PLAN PATIENT WILL NEED PROLONGED ANTIBIOTICS 6-8 WEEKS. REPEAT BLOOD CULTURES 2 SETS TODAY. PICC LINE CONTINUE iv CLEOCIN 300 MG iv PIGGYBACK EVERY 6 HOURLY.07/18/17. Continue iv ANCEF 2 G iv PIGGYBACK EVERY 8 HOURLY.07/18/17 ADD IV DAPTOMYCIN 4 MG/KG EVERY 24 HOURLY 07/22/17 while awaiting cultures POSTOPERATIVELY DURING SYNOVECTOMY 07/22/17 WILL ADJUST ANTIBIOTICS AFTER CULTURES OF FLUID AND TISSUE OBTAINED. PATIENT HAS HISTORY OF MITRAL VALVE REPLACEMENT. iv FLUIDS PER NEPHROLOGY AND CORRECTION OF HYPONATREMIA. CASE DISCUSSED WITH STAFF/BENCH PRESS OPERATOR MR REBEKA Chacon.
--- NOTE | 2017-07-23 21:25 | CP.PCM.PN ---
Subjective - Date & Time of Evaluation Date of Evaluation: 07/23/17 Time of Evaluation: 11:30 - Subjective Subjective: Reportedly with decreased PO intake lately but drinking lot of water; Objective - Vital Signs/Intake and Output Vital Signs (last 24 hours): Temp Pulse Resp BP Pulse Ox 97.4 F L 68 20 110/64 96 07/23/17 15:00 07/23/17 20:53 07/23/17 15:00 07/23/17 15:00 07/23/17 15:00 - Medications Medications: Current Medications Acetaminophen (Tylenol 325mg Tab) 650 mg PO Q8H PRN PRN Reason: Pain, Mild (1-3) Last Admin: 07/23/17 14:24 Dose: 650 mg Enoxaparin Sodium (Lovenox) 40 mg SC DAILY [facility] Furosemide (Lasix) 20 mg PO BID [facility] Last Admin: 07/22/17 09:11 Dose: 20 mg Home Med (Etanercept [Enbrel]) 50 mg SC QWK [facility] Last Admin: 07/20/17 14:20 Dose: Not Given Clindamycin Phosphate 300 mg/ (Sodium Chloride) 102 mls @ 104 mls/hr IVPB Q6H [facility] Last Admin: 07/23/17 16:44 Dose: 104 mls/hr Cefazolin Sodium 2 gm/ Sodium (Chloride) 100 mls @ 100 mls/hr IVPB Q8 [facility] Last Admin: 07/23/17 13:46 Dose: 100 mls/hr Daptomycin 280 mg/ Sodium (Chloride) 100 mls @ 100 mls/hr IV Q24H [facility] Stop: 07/28/17 00:16 Last Admin: 07/23/17 00:59 Dose: 100 mls/hr Insulin Aspart (Novolog) 0 unit SC ACHS [facility] PRN Reason: Protocol Last Admin: 07/23/17 17:00 Dose: Not Given Lactobacillus Acidophilus (Bacid Acidophilus) 1 cap PO BID [facility] Last Admin: 07/23/17 17:15 Dose: 1 cap Lidocaine (Lidoderm) 1 ea TD DAILY [facility] Last Admin: 07/23/17 10:47 Dose: 1 ea Losartan Potassium (Cozaar) 25 mg PO DAILY [facility] Last Admin: 07/23/17 10:47 Dose: 25 mg Memantine (Namenda) 10 mg PO BID [facility] Last Admin: 07/23/17 17:15 Dose: 10 mg Metformin HCl (Glucophage) 1,000 mg PO DAILY [facility] Last Admin: 07/23/17 11:00 Dose: Not Given Metoprolol Succinate (Toprol Xl) 50 mg PO DAILY [facility] Last Admin: 07/23/17 10:47 Dose: 50 mg Nitroglycerin (Nitro-Dur 0.2 Mg/Hr Patch) 1 patch TD DAILY [facility] Last Admin: 07/23/17 10:46 Dose: 1 patch Nitroglycerin (Nitrostat Sl Tab) 0.4 mg SL Q5M PRN PRN Reason: chest pain Ondansetron HCl (Zofran Inj) 4 mg IVP ONCE PRN PRN Reason: Nausea/Vomiting Pantoprazole Sodium (Protonix Ec Tab) 40 mg PO DAILY [facility] Last Admin: 07/23/17 10:46 Dose: 40 mg Potassium Chloride (K-Dur 20 Meq Er Tab) 20 meq PO DAILY [facility] Last Admin: 07/23/17 10:46 Dose: 20 meq Rosuvastatin Calcium (Crestor) 2.5 mg PO HS [facility] Last Admin: 07/22/17 22:01 Dose: 2.5 mg Sitagliptin Phosphate (Januvia) 50 mg PO DAILY [facility] Last Admin: 07/23/17 11:00 Dose: Not Given Tramadol HCl (Ultram) 50 mg PO Q8H PRN PRN Reason: Pain, moderate (4-7) Last Admin: 07/23/17 20:11 Dose: 50 mg - Labs Labs: 07/23/17 06:52 07/23/17 06:52 PT 13.8 SECONDS (9.7-12.2) H 07/19/17 10:25 INR 1.2 07/19/17 10:25 APTT 26 SECONDS (21-34) 07/16/17 09:14 - Constitutional Appears: Non-toxic, No Acute Distress - Eye Exam Eye Exam: Normal appearance. absent: Scleral icterus - Respiratory Exam Respiratory Exam: Clear to Ausculation Bilateral. absent: Respiratory Distress - Cardiovascular Exam Cardiovascular Exam: RRR, +S1, +S2 - GI/Abdominal Exam GI & Abdominal Exam: Soft. absent: Distended, Tenderness - Extremities Exam Additional comments: edema of dependent areas; - Neurological Exam Neurological Exam: Alert, Awake - Psychiatric Exam Psychiatric exam: Normal Affect, Normal Mood. absent: Agitated - Skin Skin Exam: Normal Color, Warm. absent: Cyanosis Assessment and Plan (1) Hyponatremia Assessment & Plan: Serum Na still low; likely has an element of volume depletion but have to be cautious to give IVF in setting of severe systolic dysfunction; dose of tolvaptan 15 mg given early today, will re-assess daily; Status: Acute (2) Metabolic alkalosis Assessment & Plan: Stable off diuretics, monitor bmp; Status: Acute (3) CHF (congestive heart failure) Assessment & Plan: Stable but with decreased PO intake; holding diuretics for now; Status: Acute (4) Septic arthritis of knee, left Assessment & Plan: Abx coverage broadened today; no renal dose adjustments needed; Status: Acute
[2017-07-23] MEDS: Rosuvastatin Calcium 2.5 mg Tab PO SCH (21:35)
--- NOTE | 2017-07-23 23:13 | PN ---
DATE: SUBJECTIVE: Patient is seen and examined at the bedside, looking comfortable. No shortness of breath. Cough is better. No nausea, vomiting or diarrhea. Left leg pain is getting better. No hematuria or hematochezia. No headache, no dizziness. No shortness of breath. PHYSICAL EXAMINATION: VITAL SIGNS: Temperature 97.4, pulse 65, respiratory rate 20, blood pressure 110/64, pulse oximetry 96%. HEENT: Head is normocephalic and atraumatic. Eyes, PERRLA. Extraocular muscles intact. Conjunctivae clear. Nose patent. Mucous membrane moist. NECK: Supple. No carotid bruits, JVD or thyromegaly. CHEST: Bilaterally symmetrical. HEART: S1 and S2 positive. LUNGS: Clear to auscultation. ABDOMEN: Soft, bowel sounds present. No organomegaly. EXTREMITIES: No edema. No cyanosis. NEUROLOGIC: The patient is awake, alert, moving all four extremities. No focal deficits. MEDICATIONS: Tylenol, Lovenox, Enbrel, cefazolin, daptomycin, NovoLog, Bacid, Lidoderm, Cozaar, Namenda, Glucophage, Toprol, nitro, Protonix, K-Dur, Crestor, Januvia, tramadol. LABORATORY DATA: White blood cells 4.3, hemoglobin 9.6, hematocrit 28.8, platelets 279. Sodium 125, potassium 4.2, BUN 12, creatinine 0.8, glucose 74. ASSESSMENT AND PLAN: Ms. Alcira Mobley is a 72 years old female with leukopenia, anemia, hyponatremia, has pleural effusion, thoracentesis was done, has congestive heart failure. [employer] Floor Supervisor is on the case. Seen by Dr. Mejia Avina, Infectious Disease. Patient has septic arthritis, getting antibiotics. According to Dr. Mejia Avina, patient need echocardiography, but according to Dr. Shilo Rowan, he said event noted, echocardiograph reviewed, the patient has mitral valve prosthesis; therefore, transesophageal echocardiography would not add to clinical management as she will require 6 weeks of antibiotics therapy as precaution regardless of what transesophageal echocardiography shows. Patient's nurse practitioner, Froylan Almodovar, spoke to Dr. Shilo Rowan and Dr. Shilo Rowan told that patient is high risk for transesophageal echocardiography due to her pulmonary condition. Meanwhile, we will continue antibiotics, out of bed, will arrange peripherally inserted central catheter line and we will arrange rehab for long-term use of antibiotics. Patient went for MRI, reviewed by me. Currently was in treatment. Gastrointestinal and deep venous thrombosis prophylaxis. Repeat labs. Kallie Jordan MD
[2017-07-24] MEDS: Clindamycin 300 MG in Sodium Chloride 0.9% 100 ML IVPB SCH ×3 (04:15→17:12)
[2017-07-24] MEDS: ceFAZolin 2 GM in Sodium Chloride 0.9% 100 ML IVPB SCH ×2 (06:16→16:05)
[2017-07-24 07:51] LABS: BASO # 0.1 K/uL (0.0-0.2); BASO % 1.8 % (0.0-2.0); EOS # 0.1 K/uL (0.0-0.7); EOS % 2.1 % (0.0-4.0); HEMOGLOBIN 9.3 g/dL (11.0-16.0); LYMPH # 0.5 K/uL (1.0-4.3); LYMPH % 14.4 % (20.0-40.0); MEAN CELL VOLUME 87.8 fL (81.0-99.0); MEAN CORPUSCULAR HEMOGLOBIN 28.9 pg (27.0-31.0); MEAN CORPUSCULAR HGB CONC 32.9 g/dL (33.0-37.0); MEAN PLATELET VOLUME 8.5 fL (7.2-11.7); MONO # 0.5 K/uL (0.0-0.8); MONO % 15.2 % (0.0-10.0); NEUT # 2.2 K/uL (1.8-7.0); NEUT % 66.5 % (50.0-75.0); RBC 3.22 Mil/uL (3.80-5.20); RED CELL DISTRIBUTION WIDTH 16.9 % (11.5-14.5); WHITE BLOOD COUNT 3.3 K/uL (4.8-10.8)
[2017-07-24 08:10] LABS: ALB/GLOB RATIO 0.5 (1.0-2.1); ALBUMIN 2.4 g/dL (3.5-5.0); ALT/SGPT 14 U/L (9-52); AST/SGOT 26 U/L (14-36); BLOOD UREA NITROGEN 13 mg/dL (7-17); CALCIUM 7.7 mg/dl (8.6-10.4); GFR AFRICAN-AMERICAN > 60; GFR NON-AFRICAN AMERICAN > 60
--- NOTE | 2017-07-24 08:21 | CP.PCM.PN ---
Subjective - Date & Time of Evaluation Date of Evaluation: 07/24/17 Time of Evaluation: 08:00 - Subjective Subjective: patient has no current chest pain. knee has improved Objective - Vital Signs/Intake and Output Vital Signs (last 24 hours): Temp Pulse Resp BP Pulse Ox 97.4 F L 65 20 99/66 L 97 07/24/17 08:14 07/24/17 08:14 07/24/17 08:14 07/24/17 08:14 07/24/17 08:14 Intake and Output: 07/24/17 07/24/17 06:59 18:59 Intake Total 800 Output Total 450 Balance 350 - Medications Medications: Current Medications Acetaminophen (Tylenol 325mg Tab) 650 mg PO Q8H PRN PRN Reason: Pain, Mild (1-3) Last Admin: 07/24/17 00:53 Dose: 650 mg Enoxaparin Sodium (Lovenox) 40 mg SC DAILY [facility] Furosemide (Lasix) 20 mg PO BID [facility] Last Admin: 07/22/17 09:11 Dose: 20 mg Home Med (Etanercept [Enbrel]) 50 mg SC QWK [facility] Last Admin: 07/20/17 14:20 Dose: Not Given Clindamycin Phosphate 300 mg/ (Sodium Chloride) 102 mls @ 104 mls/hr IVPB Q6H [facility] Last Admin: 07/24/17 04:15 Dose: 104 mls/hr Cefazolin Sodium 2 gm/ Sodium (Chloride) 100 mls @ 100 mls/hr IVPB Q8 [facility] Last Admin: 07/24/17 06:16 Dose: 100 mls/hr Daptomycin 280 mg/ Sodium (Chloride) 100 mls @ 100 mls/hr IV Q24H [facility] Stop: 07/28/17 00:16 Last Admin: 07/23/17 23:57 Dose: 100 mls/hr Insulin Aspart (Novolog) 0 unit SC ACHS [facility] PRN Reason: Protocol Last Admin: 07/23/17 21:44 Dose: Not Given Lactobacillus Acidophilus (Bacid Acidophilus) 1 cap PO BID [facility] Last Admin: 07/23/17 17:15 Dose: 1 cap Lidocaine (Lidoderm) 1 ea TD DAILY [facility] Last Admin: 07/23/17 10:47 Dose: 1 ea Losartan Potassium (Cozaar) 25 mg PO DAILY [facility] Last Admin: 07/23/17 10:47 Dose: 25 mg Memantine (Namenda) 10 mg PO BID [facility] Last Admin: 07/23/17 17:15 Dose: 10 mg Metformin HCl (Glucophage) 1,000 mg PO DAILY [facility] Last Admin: 07/23/17 11:00 Dose: Not Given Metoprolol Succinate (Toprol Xl) 50 mg PO DAILY [facility] Last Admin: 07/23/17 10:47 Dose: 50 mg Nitroglycerin (Nitro-Dur 0.2 Mg/Hr Patch) 1 patch TD DAILY [facility] Last Admin: 07/23/17 10:46 Dose: 1 patch Nitroglycerin (Nitrostat Sl Tab) 0.4 mg SL Q5M PRN PRN Reason: chest pain Ondansetron HCl (Zofran Inj) 4 mg IVP ONCE PRN PRN Reason: Nausea/Vomiting Pantoprazole Sodium (Protonix Ec Tab) 40 mg PO DAILY [facility] Last Admin: 07/23/17 10:46 Dose: 40 mg Potassium Chloride (K-Dur 20 Meq Er Tab) 20 meq PO DAILY [facility] Last Admin: 07/23/17 10:46 Dose: 20 meq Rosuvastatin Calcium (Crestor) 2.5 mg PO HS [facility] Last Admin: 07/23/17 21:35 Dose: 2.5 mg Sitagliptin Phosphate (Januvia) 50 mg PO DAILY [facility] Last Admin: 07/23/17 11:00 Dose: Not Given Tramadol HCl (Ultram) 50 mg PO Q8H PRN PRN Reason: Pain, moderate (4-7) Last Admin: 07/24/17 04:24 Dose: 50 mg - Labs Labs: 07/24/17 07:18 07/24/17 07:18 PT 13.8 SECONDS (9.7-12.2) H 07/19/17 10:25 INR 1.2 07/19/17 10:25 APTT 26 SECONDS (21-34) 07/16/17 09:14 - Constitutional Appears: Non-toxic - Head Exam Head Exam: NORMAL INSPECTION - Eye Exam Eye Exam: Normal appearance - ENT Exam ENT Exam: Mucous Membranes Moist - Neck Exam Neck Exam: Full ROM - Respiratory Exam Respiratory Exam: Decreased Breath Sounds - Cardiovascular Exam Cardiovascular Exam: REGULAR RHYTHM - GI/Abdominal Exam GI & Abdominal Exam: Normal Bowel Sounds - Rectal Exam Rectal Exam: Deferred - Extremities Exam Extremities Exam: Pedal Edema - Back Exam Back Exam: NORMAL INSPECTION - Neurological Exam Neurological Exam: Alert - Psychiatric Exam Psychiatric exam: Normal Affect - Skin Skin Exam: Normal Color Assessment and Plan (1) Systolic dysfunction with acute on chronic heart failure Assessment & Plan: medically stable. no CHF Status: Acute (2) CAD (coronary artery disease) Assessment & Plan: no angina Status: Acute (3) Hypertension Assessment & Plan: blood pressure controlled Status: Chronic (4) Endocarditis and heart valve disorders in diseases classified elsewhere Assessment & Plan: Givne prosthetic valve, recommend 6 weeks of antibiotic therapy Status: Acute
[2017-07-24] MEDS: (Novolog) Insulin Aspart, Recombinant 100 u/ml 10 ml vial SC SCH ×4 (08:30→22:36)
--- NOTE | 2017-07-24 10:11 | CP.PCM.PN ---
Subjective - Date & Time of Evaluation Date of Evaluation: 07/24/17 Time of Evaluation: 11:22 - Subjective Subjective: Patient states she still has a little pain in her left knee, but that it is better after the surgery to clean it. Denies CP/SOB. Objective - Vital Signs/Intake and Output Vital Signs (last 24 hours): Temp Pulse Resp BP Pulse Ox 97.4 F L 66 20 99/66 L 97 07/24/17 08:14 07/24/17 08:53 07/24/17 08:14 07/24/17 08:14 07/24/17 08:14 Intake and Output: 07/24/17 07/24/17 06:59 18:59 Intake Total 800 Output Total 450 Balance 350 - Medications Medications: Current Medications Acetaminophen (Tylenol 325mg Tab) 650 mg PO Q8H PRN PRN Reason: Pain, Mild (1-3) Last Admin: 07/24/17 00:53 Dose: 650 mg Enoxaparin Sodium (Lovenox) 40 mg SC DAILY [facility] Furosemide (Lasix) 20 mg PO BID [facility] Last Admin: 07/22/17 09:11 Dose: 20 mg Home Med (Etanercept [Enbrel]) 50 mg SC QWK [facility] Last Admin: 07/20/17 14:20 Dose: Not Given Clindamycin Phosphate 300 mg/ (Sodium Chloride) 102 mls @ 104 mls/hr IVPB Q6H [facility] Last Admin: 07/24/17 04:15 Dose: 104 mls/hr Cefazolin Sodium 2 gm/ Sodium (Chloride) 100 mls @ 100 mls/hr IVPB Q8 [facility] Last Admin: 07/24/17 06:16 Dose: 100 mls/hr Daptomycin 280 mg/ Sodium (Chloride) 100 mls @ 100 mls/hr IV Q24H [facility] Stop: 07/28/17 00:16 Last Admin: 07/23/17 23:57 Dose: 100 mls/hr Insulin Aspart (Novolog) 0 unit SC ACHS [facility] PRN Reason: Protocol Last Admin: 07/23/17 21:44 Dose: Not Given Lactobacillus Acidophilus (Bacid Acidophilus) 1 cap PO BID [facility] Last Admin: 07/23/17 17:15 Dose: 1 cap Lidocaine (Lidoderm) 1 ea TD DAILY [facility] Last Admin: 07/23/17 10:47 Dose: 1 ea Losartan Potassium (Cozaar) 25 mg PO DAILY [facility] Last Admin: 07/23/17 10:47 Dose: 25 mg Memantine (Namenda) 10 mg PO BID [facility] Last Admin: 07/23/17 17:15 Dose: 10 mg Metformin HCl (Glucophage) 1,000 mg PO DAILY [facility] Last Admin: 07/23/17 11:00 Dose: Not Given Metoprolol Succinate (Toprol Xl) 50 mg PO DAILY [facility] Last Admin: 07/23/17 10:47 Dose: 50 mg Nitroglycerin (Nitro-Dur 0.2 Mg/Hr Patch) 1 patch TD DAILY [facility] Last Admin: 07/23/17 10:46 Dose: 1 patch Nitroglycerin (Nitrostat Sl Tab) 0.4 mg SL Q5M PRN PRN Reason: chest pain Ondansetron HCl (Zofran Inj) 4 mg IVP ONCE PRN PRN Reason: Nausea/Vomiting Pantoprazole Sodium (Protonix Ec Tab) 40 mg PO DAILY [facility] Last Admin: 07/23/17 10:46 Dose: 40 mg Potassium Chloride (K-Dur 20 Meq Er Tab) 20 meq PO DAILY [facility] Last Admin: 07/23/17 10:46 Dose: 20 meq Rosuvastatin Calcium (Crestor) 2.5 mg PO HS [facility] Last Admin: 07/23/17 21:35 Dose: 2.5 mg Sitagliptin Phosphate (Januvia) 50 mg PO DAILY [facility] Last Admin: 07/23/17 11:00 Dose: Not Given Tramadol HCl (Ultram) 50 mg PO Q8H PRN PRN Reason: Pain, moderate (4-7) Last Admin: 07/24/17 04:24 Dose: 50 mg - Labs Labs: 07/24/17 07:18 07/24/17 07:18 PT 13.8 SECONDS (9.7-12.2) H 07/19/17 10:25 INR 1.2 07/19/17 10:25 APTT 26 SECONDS (21-34) 07/16/17 09:14 - Extremities Exam Additional comments: +ROM ankle/toes +DP/PT pulses calves soft NT neg homans incisions intact, no drainage (dermabond) moderate effusion not warm, no erythema comfortable during dressing change (improvement) PROM 0-50, complains of pain but allows flexion Assessment and Plan (1) Septic arthritis of knee, left Assessment & Plan: POD#5 s/p left knee I&D clinically improving since last exam monitor for reaccumulation, need for further wash out, no repeat I&D indicated at this time IV antibtiotics as per ID x 6 weeks osteomyelitis also noted on MRI will initiate ROM as per Dr. Mcmillan direction Status: Acute (2) Osteomyelitis of left knee region Status: Acute (3) Pseudogout of left knee Status: Acute (4) Degenerative joint disease of knee, left Status: Chronic
[2017-07-24] MEDS: Potassium Chloride 20 mEq ER Tab PO SCH (10:52)
[2017-07-24] MEDS: Pantoprazole 40 mg EC Tab PO SCH (10:52)
[2017-07-24] MEDS: Metoprolol Succinate 50 mg XL Tab PO SCH (10:52)
[2017-07-24] MEDS: Lactobacillus Acidophilus 500 MU Cap PO SCH ×2 (10:52→19:12)
[2017-07-24] MEDS: Nitroglycerin 0.2 mg/hr Top Patch TD SCH (10:52)
[2017-07-24] MEDS: Lidocaine 5% Patch TD SCH (10:52)
--- NOTE | 2017-07-24 16:11 | RAD ---
HISTORY: verify right PICC COMPARISON: 07/12/2017 FINDINGS: The right PICC line terminates in the SVC. LUNGS: There is severe pulmonary venous congestion. No consolidation. PLEURA: No significant pleural effusion identified, no pneumothorax apparent. CARDIOVASCULAR: Again seen is severe cardiomegaly. Status post CABG. OSSEOUS STRUCTURES: No significant abnormalities. VISUALIZED UPPER ABDOMEN: Normal. OTHER FINDINGS: None. IMPRESSION: Right PICC line terminates in the SVC. Severe cardiomegaly and pulmonary venous congestion.
[2017-07-24] MEDS ORDERED: Tolvaptan 15 MG TAB PO ONE (19:00)
--- NOTE | 2017-07-24 19:04 | CP.PCM.PN ---
Subjective - Date & Time of Evaluation Date of Evaluation: 07/24/17 Time of Evaluation: 12:00 - Subjective Subjective: Patient not consuming much PO intake; otherwise denies sob; reports adhering to fluid restriction; Objective - Vital Signs/Intake and Output Vital Signs (last 24 hours): Temp Pulse Resp BP Pulse Ox 97.5 F L 70 20 125/79 95 07/24/17 15:30 07/24/17 16:30 07/24/17 15:30 07/24/17 15:30 07/24/17 15:30 Intake and Output: 07/24/17 07/25/17 18:59 06:59 Intake Total 462 Output Total 400 Balance 62 - Medications Medications: Current Medications Acetaminophen (Tylenol 325mg Tab) 650 mg PO Q8H PRN PRN Reason: Pain, Mild (1-3) Last Admin: 07/24/17 00:53 Dose: 650 mg Enoxaparin Sodium (Lovenox) 40 mg SC DAILY [facility] Furosemide (Lasix) 20 mg PO BID [facility] Last Admin: 07/22/17 09:11 Dose: 20 mg Home Med (Etanercept [Enbrel]) 50 mg SC QWK [facility] Last Admin: 07/20/17 14:20 Dose: Not Given Clindamycin Phosphate 300 mg/ (Sodium Chloride) 102 mls @ 104 mls/hr IVPB Q6H [facility] Last Admin: 07/24/17 17:12 Dose: 104 mls/hr Daptomycin 280 mg/ Sodium (Chloride) 100 mls @ 100 mls/hr IV Q24H [facility] Stop: 07/28/17 00:16 Last Admin: 07/23/17 23:57 Dose: 100 mls/hr Cefazolin Sodium/Dextrose (Ancef Iv 2 Gm Duplex) 2 gm in 50 mls @ 100 mls/hr IVPB Q8 [facility] Insulin Aspart (Novolog) 0 unit SC ACHS [facility] PRN Reason: Protocol Last Admin: 07/24/17 17:18 Dose: Not Given Lactobacillus Acidophilus (Bacid Acidophilus) 1 cap PO BID [facility] Last Admin: 07/24/17 10:52 Dose: 1 cap Lidocaine (Lidoderm) 1 ea TD DAILY [facility] Last Admin: 07/24/17 10:52 Dose: 1 ea Losartan Potassium (Cozaar) 25 mg PO DAILY [facility] Last Admin: 02/07/18 10:52 Dose: 25 mg Memantine (Namenda) 10 mg PO BID [facility] Last Admin: 07/24/17 17:13 Dose: 10 mg Metformin HCl (Glucophage) 1,000 mg PO DAILY [facility] Last Admin: 07/24/17 10:50 Dose: Not Given Metoprolol Succinate (Toprol Xl) 50 mg PO DAILY [facility] Last Admin: 07/24/17 10:52 Dose: 50 mg Nitroglycerin (Nitro-Dur 0.2 Mg/Hr Patch) 1 patch TD DAILY [facility] Last Admin: 07/24/17 10:52 Dose: 1 patch Nitroglycerin (Nitrostat Sl Tab) 0.4 mg SL Q5M PRN PRN Reason: chest pain Ondansetron HCl (Zofran Inj) 4 mg IVP ONCE PRN PRN Reason: Nausea/Vomiting Pantoprazole Sodium (Protonix Ec Tab) 40 mg PO DAILY [facility] Last Admin: 07/24/17 10:52 Dose: 40 mg Potassium Chloride (K-Dur 20 Meq Er Tab) 20 meq PO DAILY [facility] Last Admin: 07/24/17 10:52 Dose: 20 meq Rosuvastatin Calcium (Crestor) 2.5 mg PO HS [facility] Last Admin: 07/23/17 21:35 Dose: 2.5 mg Sitagliptin Phosphate (Januvia) 50 mg PO DAILY [facility] Last Admin: 07/24/17 10:50 Dose: Not Given Tramadol HCl (Ultram) 50 mg PO Q8H PRN PRN Reason: Pain, moderate (4-7) Last Admin: 07/24/17 13:50 Dose: 50 mg - Labs Labs: 07/24/17 07:18 07/24/17 07:18 PT 13.8 SECONDS (9.7-12.2) H 07/19/17 10:25 INR 1.2 07/19/17 10:25 APTT 26 SECONDS (21-34) 07/16/17 09:14 - Constitutional Appears: Non-toxic, No Acute Distress - Eye Exam Eye Exam: absent: Scleral icterus - ENT Exam ENT Exam: Mucous Membranes Moist - Respiratory Exam Respiratory Exam: Clear to Ausculation Bilateral. absent: Rales, Respiratory Distress - Cardiovascular Exam Cardiovascular Exam: RRR, +S1, +S2 - GI/Abdominal Exam GI & Abdominal Exam: Soft. absent: Distended, Tenderness - Extremities Exam Additional comments: edema of dependent areas; - Neurological Exam Neurological Exam: Alert, Awake - Psychiatric Exam Psychiatric exam: Normal Affect, Normal Mood. absent: Agitated - Skin Skin Exam: Warm. absent: Cyanosis Assessment and Plan (1) Hyponatremia Assessment & Plan: Not improved with tolvaptan given yesterday evening; urine osm still very high; CXR indicative of volume overload but considering severe systolic dysfunction, may have decreased renal perfusion; giving another dose of tolvaptan 15 mg today ; Status: Acute (2) Metabolic alkalosis Status: Acute (3) CHF (congestive heart failure) Assessment & Plan: Severe systolic dysfunction w/ CXR today showing pulm vascular congestion; however, clinically appears stable; will hold loop diuretics for now; Status: Acute (4) Septic arthritis of knee, left Assessment & Plan: Patient with OM of L knee; will need 6 weeks abx; no renal dose adjustment needed for now; Status: Acute
--- NOTE | 2017-07-24 20:56 | CP.PCM.PN ---
Subjective - Date & Time of Evaluation Date of Evaluation: 07/24/17 Time of Evaluation: 20:55 - Subjective Subjective: CHIEF COMPLAINTS TODAY : POD # 5 AFEBRILE, VSS. AWAKE, C/O MILD DISCOMFORT LT KNEE. CASE DISCUSSED WITH DR. ROBERT RAYGOZA. ORTHOPEDIC reports patient was taken to the OR only once on 07/19/17 S/P arthroscopic irrigation and debridement left knee. 07/19/17 Arthroscopic patellar medial lateral meniscectomy. Extensive synovectomy/ chondroplasty trochlea ROS. HEENT : N. Resp : No SOB wheezing, cough Cardio : No CP, PND orthopnea GI : No abd. Pain, n/v [employer] : No headache , focal deficit. Musculoskel : N Ext. : LT.KNEE,LE IN A SUPPORTIVE CAST/AND DRESSING Derm : N Psych : N. PE. Pt. POSTOP, DROWSY V.S As noted in the chart Head ,ear nose,throat and eyes : Normal. Neck : Supple with normal carotids. Lungs: Clear air entry. Heart : S1 & S2 normal . . No murmur. S4 + Abd : Soft non tender with normal bowel sounds. Neuro : Moves all ext. with no localized deficit. Ext : LT.KNEE,LE IN A SUPPORTIVE CAST/AND DRESSING Derm : No rashes or decubitus ulcer. Radiology/Labs . MRI LT KNEE/LE 07/22/17- NOTED.-Large suprapatellar joint effusion?infectious versus inflammatory. ? Acute osteomyelitis-lateral femoral condyle/lateral proximal tibia. ? Avascular necrosis (see full report ) Objective - Vital Signs/Intake and Output Vital Signs (last 24 hours): Temp Pulse Resp BP Pulse Ox 97.5 F L 70 20 125/79 95 07/24/17 15:30 07/24/17 16:30 07/24/17 15:30 07/24/17 15:30 07/24/17 15:30 Intake and Output: 07/24/17 07/25/17 18:59 06:59 Intake Total 462 Output Total 400 Balance 62 - Medications Medications: Current Medications Acetaminophen (Tylenol 325mg Tab) 650 mg PO Q8H PRN PRN Reason: Pain, Mild (1-3) Last Admin: 07/24/17 00:53 Dose: 650 mg Enoxaparin Sodium (Lovenox) 40 mg SC DAILY [facility] Furosemide (Lasix) 20 mg PO BID [facility] Last Admin: 07/22/17 09:11 Dose: 20 mg Home Med (Etanercept [Enbrel]) 50 mg SC QWK [facility] Last Admin: 07/20/17 14:20 Dose: Not Given Clindamycin Phosphate 300 mg/ (Sodium Chloride) 102 mls @ 104 mls/hr IVPB Q6H [facility] Last Admin: 07/24/17 17:12 Dose: 104 mls/hr Daptomycin 280 mg/ Sodium (Chloride) 100 mls @ 100 mls/hr IV Q24H [facility] Stop: 07/28/17 00:16 Last Admin: 07/23/17 23:57 Dose: 100 mls/hr Cefazolin Sodium/Dextrose (Ancef Iv 2 Gm Duplex) 2 gm in 50 mls @ 100 mls/hr IVPB Q8 [facility] Insulin Aspart (Novolog) 0 unit SC ACHS [facility] PRN Reason: Protocol Last Admin: 07/24/17 17:18 Dose: Not Given Lactobacillus Acidophilus (Bacid Acidophilus) 1 cap PO BID [facility] Last Admin: 07/24/17 19:12 Dose: 1 cap Lidocaine (Lidoderm) 1 ea TD DAILY [facility] Last Admin: 07/24/17 10:52 Dose: 1 ea Losartan Potassium (Cozaar) 25 mg PO DAILY [facility] Last Admin: 07/24/17 10:52 Dose: 25 mg Memantine (Namenda) 10 mg PO BID [facility] Last Admin: 07/24/17 17:13 Dose: 10 mg Metformin HCl (Glucophage) 1,000 mg PO DAILY [facility] Last Admin: 07/24/17 10:50 Dose: Not Given Metoprolol Succinate (Toprol Xl) 50 mg PO DAILY [facility] Last Admin: 07/24/17 10:52 Dose: 50 mg Nitroglycerin (Nitro-Dur 0.2 Mg/Hr Patch) 1 patch TD DAILY [facility] Last Admin: 07/24/17 10:52 Dose: 1 patch Nitroglycerin (Nitrostat Sl Tab) 0.4 mg SL Q5M PRN PRN Reason: chest pain Ondansetron HCl (Zofran Inj) 4 mg IVP ONCE PRN PRN Reason: Nausea/Vomiting Pantoprazole Sodium (Protonix Ec Tab) 40 mg PO DAILY [facility] Last Admin: 07/24/17 10:52 Dose: 40 mg Potassium Chloride (K-Dur 20 Meq Er Tab) 20 meq PO DAILY [facility] Last Admin: 07/24/17 10:52 Dose: 20 meq Rosuvastatin Calcium (Crestor) 2.5 mg PO HS [facility] Last Admin: 07/23/17 21:35 Dose: 2.5 mg Sitagliptin Phosphate (Januvia) 50 mg PO DAILY [facility] Last Admin: 07/24/17 10:50 Dose: Not Given Tramadol HCl (Ultram) 50 mg PO Q8H PRN PRN Reason: Pain, moderate (4-7) Last Admin: 07/24/17 13:50 Dose: 50 mg - Labs Labs: 07/24/17 07:18 07/24/17 07:18 PT 13.8 SECONDS (9.7-12.2) H 07/19/17 10:25 INR 1.2 07/19/17 10:25 APTT 26 SECONDS (21-34) 07/16/17 09:14 Assessment and Plan - Assessment and Plan (Free Text) Assessment: IMPRESSION; -S/P ARTHROSCOPIC IRRIGATION/DEBRIDEMENT, LEFT KNEE ARTHROSCOPIC PATELLAR MEDIAL /LATERAL MENISCECTOMY AND EXTENSIVE SYNOVECTOMY/CHONDROPLASTY TROCHLEA 07/19/17 -S/P LEFT KNEE ARTHROSCOPY AND SYNOVECTOMY & BX/CULTURES -SEPTIC ARTHRITIS LEFT KNEE/WITH PSEUDOGOUT /? 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 -HX OF CABG /MVR. -CONGESTIVE HEART FAILURE. -S/P THORACENTESIS. lYMPHOCYTIC EFFUSION -aTRIAL FIBRILLATION. -HYPONATREMIA- IMPROVING. -DM-2 -RHEUMATOID ARTHRITIS/OSTEOPOROSIS BY HISTORY. PLAN PATIENT WILL NEED PROLONGED ANTIBIOTICS 6-8 WEEKS. REPEAT BLOOD CULTURES -negative so far. PICC LINE in place DC IV DAPTOMYCIN 4 MG/KG EVERY 24 HOURLY 07/22/17 DC iv CLEOCIN 300 MG iv PIGGYBACK EVERY 6 HOURLY.07/18/17 07/24/17 DISCHARGE PLAN TO REHAB. CASE DISCUSSED WITH THE RN TRANSPORT [facility]. 1-Continue iv ANCEF 2 G iv PIGGYBACK EVERY 8 HOURLY.07/18/17 x 6wks. 2-ADD IV GENTAMICIN 100 MG IVPB LD TODAY.07/24/17. F/U BY IV GENTAMICIN 70 MILLIGRAMS iv PIGGYBACK ONCE A DAY DAILY X 2WKS.07/24/17 TILL 08/07/17 3-ADD PO RIFAMPIN 300MG PO TID X 6WKS. F/U LFTS WEEKLY. F/U RENAL FUNCTION WEEKLY. . PATIENT PATIENT'S URINE COLOR WILL BE ORANGE, TO INFORM THE PATIENT. CASE DISCUSSED WITH ORTHOPEDIC DR ATKINS../DR HUNTER PMD. WILL FOLLOW THE PATIENT WHILE IN THE HOSPITAL.
[2017-07-24] MEDS: ceFAZolin IV 2 gm in Dextrose 2 GM/50 ML BAG IVPB SCH (22:29)
[2017-07-24] MEDS: Rosuvastatin Calcium 2.5 mg Tab PO SCH (22:29)
--- NOTE | 2017-07-25 04:40 | PN ---
DATE: SUBJECTIVE: The patient is seen and examined at the bedside early in the morning, looking comfortable, afebrile, and awake. Still has pain in the left knee. No nausea, vomiting, or diarrhea. No hematuria or hematochezia. No swelling of the upper extremity. No headache or dizziness. PHYSICAL EXAMINATION: VITAL SIGNS: Temperature 97.5, pulse 70, blood pressure 120/79, and respiratory rate 20. HEENT: Head is normocephalic and atraumatic. Eyes, PERRLA. Extraocular muscles intact. Conjunctivae clear. Nose patent. Mucous membrane moist. NECK: Supple. No carotid bruits, No JVD or thyromegaly. CHEST: Bilaterally symmetrical. HEART: S1 and S2 positive. LUNGS: Clear to auscultation. ABDOMEN: Soft, bowel sounds present. No organomegaly. EXTREMITIES: No edema. No cyanosis. NEUROLOGIC: The patient is awake, alert, moving all four extremities. No focal deficits. MEDICATIONS: Lovenox, Lasix, Enbrel, clindamycin, daptomycin, Ancef, insulin, Bacid acidophilus, Lidoderm, Cozaar, Namenda, Glucophage, Toprol, Nitrostat, Zofran, Protonix, potassium, Crestor, and tramadol. LABORATORY DATA: White blood cells 3.3, hemoglobin 9.3, hematocrit 28.2, and platelets 261. Sodium 125, potassium 4.3, BUN 13, creatinine 0.7, and glucose 111. ASSESSMENT AND PLAN: Ms. Alcira Mobley is a 72-year-old female with leukopenia, anemia, hyponatremia, hyperglycemia, status post arthroscopic irrigation, and debridement of left knee arthroscopic patellar, medial lateral meniscectomy as per Orthopedic, extensive synovectomy, and chondroplasty on 07/19/2017, as well as knee arthroscopy, septic arthritis of left knee with pseudogout/osteomyelitis/avascular necrosis. Staph aureus is positive, positive VE, positive CPPD, prosthetic mitral valve, rule out valve endocarditis, positive vegetation, could not be ruled out on 2D echocardiogram, history of coronary artery bypass grafting, mitral valve regurgitation, congestive heart failure, status post thoracentesis, history of pleural effusion, atrial fibrillation, electrolyte imbalance, and rheumatoid arthritis. Just I had length of time discussion done with Dr. Mejia Avina. The patient need prolonged antibiotics at least 8 weeks, repeat blood cultures are negative so far percutaneous insertion of central line catheter in place, discontinue intravenous daptomycin. Discontinue intravenous . Plan is discharge the patient to rehabilitation with intravenous antibiotics. Continue Ancef, add gentamicin, add p.o. rifampin 300 mg p.o. t.i.d. for six weeks, follow up liver function test weekly, follow up renal function test weekly, gastrointestinal prophylaxis, repeat labs. We discussion with nurse practitioner and Dr. Mejia Avina and we will follow up. Kallie Jordan MD MTDD
[2017-07-25] MEDS: ceFAZolin IV 2 gm in Dextrose 2 GM/50 ML BAG IVPB SCH ×3 (05:00→22:06)
--- NOTE | 2017-07-25 05:37 | OP ---
PROCEDURE DATE: 07/19/2017 07/19/2017 PREOPERATIVE DIAGNOSES: LEFT KNEE: 1. Septic arthritis. 2. Inflammatory/crystal arthropathy synovitis/pseudogout. POSTOPERATIVE DIAGNOSES: LEFT KNEE: 1. Septic arthritis. 2. 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 3. Degenerative/complex medial meniscal tear. 4. Degenerative/complex lateral meniscal tear. 5. Chondromalacia, trochlea/medial femoral condyle/lateral femoral condyle. 6. Degenerative joint disease, patella. PROCEDURES: Left knee arthroscopic: 1. Irrigation and debridement. 2. Extensive synovectomy. 3. Synovial biopsy and culture acquisition. 4. Partial medial and lateral meniscectomies. 5. Chondroplasty, trochlea/medial femoral condyle/lateral femoral condyle/patella. SURGEON: Bladimir Mcmillan MD LIQUID CENTER ASSEMBLER: Miguel Restrepo PA-C. JUSTIFICATION FOR LIQUID CENTER ASSEMBLER: Miguel Restrepo is a certified physician medical assistant secretary whose skilled surgical service was an absolute necessity for successful completion of the procedure, as he provided skilled surgical assistance with positioning of the patient, positioning of extremity, management of surgical field, retraction of the neurovascular structures, handling of orthoscopic equipment, facilitating chondroplasty, and irrigation and debridement as well as extensive synovectomy, wound closure, placement in knee immobilizer and fitting. Miguel Restrepo's presence for the entire case was an absolute necessity for successful completion of the procedure as an medical assistant secretary. TYPE OF ANESTHESIA: General endotracheal anesthesia with a postop regional nerve block placed by anesthesia staff in PACU. SPECIMENS: 1. Synovial fluid cultures, 4 specimen in total (3 specimens sent for stat Gram-stain and culture, one specimen sent for AFB and fungal analysis) to microbiology lab. 2. Synovial biopsy sent to Pathology. TOURNIQUET TIME: 29 minutes at 300 mmHg. IMPLANTS: None. COMPLICATIONS: None. ESTIMATED BLOOD LOSS: 3 mL. DRAINS: None. DISPOSITION: The patient was extubated and transferred to PACU in stable condition and tolerated procedure well. INDICATIONS FOR SURGERY: The patient is a 72-year-old female with a past medical history significant for CHF, ischemic cardiomyopathy, status post CABG and mitral valve replacement, cardiac arrhythmia, coronary artery disease, status post stents, hypercholesteremia, diabetes, hypertension, early dementia, COPD, who presented to the emergency room at [facility] on 07/12/2017 with left knee pain and swelling for a few days and difficulty weightbearing. After evaluation by ER staff and review of imaging, she was diagnosed with left knee cellulitis and possible septic knee and admitted to the medical service under Dr. Kallie Jordan. Orthopedic consultation was placed and Dr. Kurt Olivia was consulted initially. Under his supervision, the orthopedic PA did a left knee aspiration and sent the specimen for cell count/culture/Gram stain/crystal identification on 07/06/2017. The aspiration results: Positive for pseudogout crystals, cell count was negative for infection with white blood cells yielding 15,000 in the cell count, one culture specimen was sent to microbiology lab which grew Staphylococcus aureus after 2 days. In the interim, she was also being treated for possible infected mitral valve replacement with IV antibiotics as well. When the one culture specimen came back as positive in the setting of positive crystals and a negative cell count, repeat aspiration was conducted on 07/17/2017, yielding a more septic picture with a white blood cell count of 225,000 in the cell count, and 3 specimens yielding positive cultures in microbiology with Staphylococcus aureus methicillin susceptible/MSSA. At that point in time, Dr. Olivia was away, out of the state, and the case was confirmed to a septic knee. I was asked to take over treatment of the patient on 07/18/2017 and saw her as an initial consultation and took her to the OR on 07/19/2017 in the a.m. Review of imaging: Left knee x-rays done on admission, 07/12/2017, showed no fracture or dislocation with early degenerative changes and medial joint space narrowing/early DJD/chondromalacia with an area of sclerotic signal/sclerotic area at the proximal tibia metadiaphysis, read as possible AVN versus other bony pathology. MRI had not been done yet. I confirmed the above history and examined the patient yielding an exam consistent with septic arthritis of the left knee. She was deemed to be high risk by Cardiology and had received a dose of Lovenox, high dosing/therapeutic dosing, early in the a.m. on 07/18/2017. She was made n.p.o. after midnight and future DVT prophylaxis dosing held the next day to atleast give us 24 hours without Lovenox on board. The risks, benefits, and alternatives to the procedure were discussed at length with the patient with the use of a [place] speaking supervisor telephone information with the risks including, but not limited to, infection, neurovascular damage, need for further surgery including repeat I and D, chondrolysis, and accelerated degenerative wear, development of chronic pain and disability, development of blood clots including DVT and PE, stiffness and inability to return to pre-infection level of activity. She was indicative for left knee arthroscopic I and D, extensive synovectomy, synovial biopsy, and all related indicative procedures that can be done within a reasonable quick amount of time while the patient is stable under anesthesia. I spent a long time with the patient explaining the risks, benefits, and alternatives of the procedure with the use of the [place] speaking supervisor telephone information and after answering all of the questions stated that she understood the risks and wished to proceed with surgery. She had a good understanding of what her diagnosis was as well as the procedure to be done. She was deemed to be optimized by her primary care physician on the service as well the extrusion machine operator and as stated before was deemed to be high risk, but this was an emergent procedure as this was a septic knee. PROCEDURE IN DETAIL: The patient was identified in the preoperative holding area and the left knee was marked for surgery. Once again, as described above, the risks, benefits, and alternatives to the procedure were discussed at length with the patient with the use of a [place]-speaking supervisor telephone information and an informed consent was obtained. After a brief discussion with the anesthesia staff, the patient was taken to the operating room and placed in a well-padded operating room table with all bony prominences and superficial neurovascular structures well-padded. An initial time-out was done with the surgeon, anesthesia staff, OR staff, all in agreement with the patient, procedure being done, and extremity being operated on. General anesthesia was administered without difficulty or complication. Examination under anesthesia was then carried out. The left knee with significant effusion/swelling, significant warmth, significant redness along the anterior aspect of the knee, full range of motion compared to contralateral knee, significant crepitance throughout range of motion, no evidence of instability with negative anterior draw, negative posterior draw, negative Wes, negative reverse Wes, negative pivot shift, negative reverse pivot shift, negative opening to medial or lateral joint line at 0 to 30 degrees varus or valgus stress, patella with normal tracking but significant crepitus throughout range of motion. There was a reproducible plica band engaging on the medial aspect of the patella as well throughout range of motion. CONTINUATION OF PROCEDURE: A final time-out was done with the surgeon, anesthesia staff, and OR staff, all in agreement with the patient, procedure being done, and the extremity being operated on. The limb was held elevated about the level of her heart and the tourniquet was inflated without exsanguination for a total tourniquet time of 29 minutes of 300 mmHg. Left lower extremity was prepped and draped in the standard sterile fashion. Anterolateral portal was created with stab incision through the skin down to subcutaneous tissues, down to level of the capsule. Immediately expressed from the portal was a copious amount of pus, synovial fluid. The specimens were obtained decompressing the knee with approximately 50 mL of pus/synovial fluid. This fluid would be later sent to microbiology as 4 specimens in total, one specimen for AFB and fungal identification, 3 specimens for stat Gram stain and cultures. Arthroscopic blunt trocar and cannula were inserted into the anterolateral portal into the suprapatellar pouch. Insufflation with arthroscopic fluid was begun and the arthroscopic camera was inserted. With the use of spinal needle localization, anteromedial portal was created with stab incision through skin down subcutaneous tissue down to the level of capsule. An accessory cannula was inserted and the knee joint was copiously irrigated for better visualization and removal of synovial debris and pus. Once better visualization was established, with the use of an arthroscopic probe, a diagnostic arthroscopic was then carried out. Attention was first turned towards the suprapatellar pouch where there was no evidence of adhesions, but there was significant inflamed synovium and inflammatory synovial changes as well as chondrocalcinosis/pseudogout crystal arthropathy throughout the entire 3 compartments of the joint and the entire synovial membrane surrounding the knee joint. Attention was then turned towards the patellofemoral joint, where the patella exhibited full thickness cartilage loss and degenerative changes consistent with early DJD with the trochlea exhibiting grade 2 to 3 chondromalacia and fibrillated cartilage. Attention was then turned towards the medial compartment where all along the medial femoral condyle was crystal arthropathy covering the entire medial femoral condyle articulate surface with underlying significant chondromalacia and grade 3 to 4 cartilage loss globally at the medial femoral condyle and medial tibial plateau, the medial meniscus exhibited complex degenerative tearing with chondrocalcinosis throughout. The intercondylar notch showed intact ACL and PCL with significant hypertrophic and inflamed synovitis throughout, lateral compartment exhibited the same as the medial compartment with chondromalacia to a much less degree, more of a grade 1 picture globally to grade 2, lateral meniscus also exhibited degenerative complex tearing and chondrocalcinosis throughout. First step: With the use of arthroscopic shaver and radiofrequency ablation was an extensive synovectomy resecting all the chondrocalcinosis and hypertropic inflammatory synovitis throughout the entire knee joints. Once this was done to satisfaction, removing all the inflamed tissue and infected tissue while maintaining good hemostasis, attention was then turned towards the medial compartments. The complex degenerative medial meniscus tear underwent a partial medial meniscotomy establishing a smooth rim, removing approximately 20% of the medial meniscus with the use of arthroscopic meniscal biters, arthroscopic shaver, and radiofrequency ablation, done quickly establishing a smooth contour to the medial meniscus. The same was done for the lateral meniscus performing a partial lateral meniscotomy, removing approximately 20% of the lateral meniscus, establishing a smooth rim with the use of arthroscopic shaver, meniscal biters, radiofrequency ablation while maintaining good hemostasis. In the suprapatellar pouch, there was still some remnant inflamed synovium and a synovial biopsy was taken and sent to Pathology. All-in-all, approximately 6000 mL of normal saline fluid were used to irrigate the knee joint. With the use of arthroscopic shaver and radiofrequency ablation, the extensive synovectomy was carried out and final arthroscopic images were taken showing that the chondrocalcinosis had been debrided and resected as well as the inflammatory synovitis and septic arthritis synovitis as well. Once we had resected back to healthy and normal-looking intraarticular tissue and 6000 mL of normal saline fluid was used to irrigate the knee joints, and there was no remnant disease tissue seen. The procedure was completed. All arthroscopic fluid and debris were removed from the knee joints. The arthroscopic portals were then reapproximated with 2-0 Vicryl suture for deep tissue followed by 3-0 Monocryl suture for skin. Sterile dressings were applied followed by a layer of sterile cast padding from the toes up to the superior thigh followed by a layer of compressive Denis wrap from the toes up to the superior thigh. The knee was then placed in a knee immobilizer fitted for the patient. The patient was then extubated and transferred to PACU in stable condition having tolerated the procedure well. The tourniquet had been deflated after 29 minutes at the end of the procedure and good hemostasis was confirmed under direct visualization and established with arthroscopic radiofrequency ablation. DISPOSITION: The patient was transferred to PACU in stable condition having tolerated the procedure well. She has already an inpatient and will continue her IV antibiotic regimen. Perioperative IV antibiotics were held initially until the initial cultures were obtained and then we continued her dosing of clindamycin on her schedule. She will continue IV antibiotics under the recommendations of infectious disease consult. She will start physical therapy and be weightbearing as tolerated with no restrictions, postoperative day #1. She will be restarted on DVT prophylaxis at the discretion of the primary care physician starting postoperative day #1. Bladimir Mcmillan MD
[2017-07-25 07:50] LABS: ALB/GLOB RATIO 0.5 (1.0-2.1); ALBUMIN 2.5 g/dL (3.5-5.0); ALT/SGPT 12 U/L (9-52); AST/SGOT 24 U/L (14-36); BLOOD UREA NITROGEN 13 mg/dL (7-17); CALCIUM 8.1 mg/dl (8.6-10.4); GFR AFRICAN-AMERICAN > 60; GFR NON-AFRICAN AMERICAN > 60
[2017-07-25] MEDS: (Novolog) Insulin Aspart, Recombinant 100 u/ml 10 ml vial SC SCH ×3 (08:18→16:59)
[2017-07-25 08:49] LABS: BASO % 0.9 % (0.0-2.0); EOS # 0.1 K/uL (0.0-0.7); EOS % 1.5 % (0.0-4.0); LYMPH # 0.6 K/uL (1.0-4.3); LYMPH % 13.4 % (20.0-40.0); MEAN CELL VOLUME 88.2 fL (81.0-99.0); MEAN CORPUSCULAR HEMOGLOBIN 29.4 pg (27.0-31.0); MEAN CORPUSCULAR HGB CONC 33.3 g/dL (33.0-37.0); MEAN PLATELET VOLUME 8.3 fL (7.2-11.7); MONO # 0.6 K/uL (0.0-0.8); MONO % 14.6 % (0.0-10.0); NEUT # 3.1 K/uL (1.8-7.0); NEUT % 69.6 % (50.0-75.0); NRBC % 0.1 % (0.0-2.0); RBC 3.07 Mil/uL (3.80-5.20); RED CELL DISTRIBUTION WIDTH 16.8 % (11.5-14.5); WHITE BLOOD COUNT 4.4 K/uL (4.8-10.8)
[2017-07-25] MEDS: Lactobacillus Acidophilus 500 MU Cap PO SCH ×2 (10:47→17:53)
[2017-07-25] MEDS: Potassium Chloride 20 mEq ER Tab PO SCH (10:47)
[2017-07-25] MEDS: Metoprolol Succinate 50 mg XL Tab PO SCH (10:48)
[2017-07-25] MEDS: Pantoprazole 40 mg EC Tab PO SCH (10:48)
[2017-07-25] MEDS: Nitroglycerin 0.2 mg/hr Top Patch TD SCH (10:48)
[2017-07-25] MEDS: Lidocaine 5% Patch TD SCH (10:48)
[2017-07-25 17:40] LABS: OSMOLALITY,URINE 222 mosm/kg (300-1000)
[2017-07-25] MEDS: Rosuvastatin Calcium 2.5 mg Tab PO SCH (22:07)
--- NOTE | 2017-07-25 22:07 | CP.PCM.PN ---
Subjective - Date & Time of Evaluation Date of Evaluation: 07/25/17 Time of Evaluation: 21:30 - Subjective Subjective: Patient denies shortness of breath; eating half of her meals; Objective - Vital Signs/Intake and Output Vital Signs (last 24 hours): Temp Pulse Resp BP Pulse Ox 97.7 F 74 18 160/80 H 96 07/25/17 15:45 07/25/17 16:00 07/25/17 15:45 07/25/17 15:45 07/25/17 15:45 Intake and Output: 07/25/17 07/26/17 18:59 06:59 Intake Total 410 Output Total 630 900 Balance -220 -900 - Medications Medications: Current Medications Acetaminophen (Tylenol 325mg Tab) 650 mg PO Q8H PRN PRN Reason: Pain, Mild (1-3) Last Admin: 07/24/17 22:35 Dose: 650 mg Docusate Sodium (Colace) 100 mg PO TID [facility] Last Admin: 07/25/17 17:18 Dose: 100 mg Enoxaparin Sodium (Lovenox) 40 mg SC DAILY [facility] Furosemide (Lasix) 20 mg PO BID [facility] Last Admin: 07/22/17 09:11 Dose: 20 mg Home Med (Etanercept [Enbrel]) 50 mg SC QWK [facility] Last Admin: 07/20/17 14:20 Dose: Not Given Cefazolin Sodium/Dextrose (Ancef Iv 2 Gm Duplex) 2 gm in 50 mls @ 100 mls/hr IVPB Q8 [facility] Last Admin: 07/25/17 22:06 Dose: 100 mls/hr Gentamicin Sulfate 70 mg/ (Sodium Chloride) 101.75 mls @ 100 mls/hr IVPB Q24H [facility] Stop: 08/07/17 00:02 Insulin Aspart (Novolog) 0 unit SC ACHS [facility] PRN Reason: Protocol Last Admin: 07/25/17 16:59 Dose: Not Given Lactobacillus Acidophilus (Bacid Acidophilus) 1 cap PO BID [facility] Last Admin: 07/25/17 17:53 Dose: 1 cap Lidocaine (Lidoderm) 1 ea TD DAILY [facility] Last Admin: 07/25/17 10:48 Dose: 1 ea Losartan Potassium (Cozaar) 25 mg PO DAILY [facility] Last Admin: 07/25/17 10:47 Dose: 25 mg Memantine (Namenda) 10 mg PO BID [facility] Last Admin: 07/25/17 17:20 Dose: 10 mg Metformin HCl (Glucophage) 1,000 mg PO DAILY [facility] Last Admin: 07/25/17 10:47 Dose: Not Given Metoprolol Succinate (Toprol Xl) 50 mg PO DAILY [facility] Last Admin: 07/25/17 10:48 Dose: 50 mg Nitroglycerin (Nitro-Dur 0.2 Mg/Hr Patch) 1 patch TD DAILY [facility] Last Admin: 07/25/17 10:48 Dose: 1 patch Nitroglycerin (Nitrostat Sl Tab) 0.4 mg SL Q5M PRN PRN Reason: chest pain Ondansetron HCl (Zofran Inj) 4 mg IVP ONCE PRN PRN Reason: Nausea/Vomiting Pantoprazole Sodium (Protonix Ec Tab) 40 mg PO DAILY [facility] Last Admin: 07/25/17 10:48 Dose: 40 mg Potassium Chloride (K-Dur 20 Meq Er Tab) 20 meq PO DAILY [facility] Last Admin: 07/25/17 10:47 Dose: 20 meq Rifampin (Rifampin Cap) 300 mg PO TID [facility] Last Admin: 07/25/17 17:20 Dose: 300 mg Rosuvastatin Calcium (Crestor) 2.5 mg PO HS [facility] Last Admin: 07/25/17 22:07 Dose: 2.5 mg Sitagliptin Phosphate (Januvia) 50 mg PO DAILY [facility] Last Admin: 07/25/17 10:47 Dose: Not Given Tramadol HCl (Ultram) 50 mg PO Q8H PRN PRN Reason: Pain, moderate (4-7) Last Admin: 07/25/17 17:18 Dose: 50 mg - Labs Labs: 07/25/17 07:13 07/25/17 07:13 PT 13.8 SECONDS (9.7-12.2) H 07/19/17 10:25 INR 1.2 07/19/17 10:25 APTT 26 SECONDS (21-34) 07/16/17 09:14 - Constitutional Appears: Non-toxic, No Acute Distress - Eye Exam Eye Exam: absent: Scleral icterus - ENT Exam ENT Exam: Mucous Membranes Moist - Respiratory Exam Respiratory Exam: Clear to Ausculation Bilateral. absent: Respiratory Distress - Cardiovascular Exam Cardiovascular Exam: RRR, +S1, +S2 - GI/Abdominal Exam GI & Abdominal Exam: Soft. absent: Distended, Tenderness - Exam Exam: absent: Bladder Distension - Neurological Exam Neurological Exam: Alert, Awake - Psychiatric Exam Psychiatric exam: Normal Affect, Normal Mood. absent: Agitated - Skin Skin Exam: Cyanosis. absent: Warm Assessment and Plan (1) Hyponatremia Assessment & Plan: Urine osm decreasing today with higher dose of tolvaptan so should expect improvement in hyponatremia by tomorrow; will monitor closely; Status: Acute (2) Metabolic alkalosis Assessment & Plan: Stable, nursing home will benefit from being on aldactone (once hyponatremia stabilized); Status: Acute (3) CHF (congestive heart failure) Assessment & Plan: Severe systolic dysfunction; is asymptomatic due to lack movement; restart lasix after hyponatremia stabilized from tolvaptan; Status: Acute (4) Septic arthritis of knee, left Assessment & Plan: Started on gent today; check trough level before 3rd dose to avoid nephrotoxicity; Status: Acute
--- NOTE | 2017-07-25 22:27 | CP.PCM.PN ---
Subjective - Date & Time of Evaluation Date of Evaluation: 07/25/17 Time of Evaluation: 22:27 - Subjective Subjective: CHIEF COMPLAINTS TODAY : POD # 6 AFEBRILE, VSS. AWAKE, FEELING BETTER C/O MILD DISCOMFORT LT KNEE. CASE DISCUSSED WITH DR. ROBERT RAYGOZA. ORTHOPEDIC reports patient was taken to the OR only once on 07/19/17 S/P arthroscopic irrigation and debridement left knee. 07/19/17 Arthroscopic patellar medial lateral meniscectomy. Extensive synovectomy/ chondroplasty trochlea ROS. HEENT : N. Resp : No SOB wheezing, cough Cardio : No CP, PND orthopnea GI : No abd. 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 Musculoskel : N Ext. : LT.KNEE,LE IN A SUPPORTIVE CAST/AND DRESSING Derm : N Psych : N. PE. Pt. POSTOP, DROWSY V.S As noted in the chart Head ,ear nose,throat and eyes : Normal. Neck : Supple with normal carotids. Lungs: Clear air entry. Heart : S1 & S2 normal . . No murmur. S4 + Abd : Soft non tender with normal bowel sounds. Neuro : Moves all ext. with no localized deficit. Ext : LT.KNEE,LE IN A SUPPORTIVE DRESSING Derm : No rashes or decubitus ulcer. Radiology/Labs . MRI LT KNEE/LE 07/22/17- NOTED.-Large suprapatellar joint effusion?infectious versus inflammatory. ? Acute osteomyelitis-lateral femoral condyle/lateral proximal tibia. ? Avascular necrosis (see full report ) Objective - Vital Signs/Intake and Output Vital Signs (last 24 hours): Temp Pulse Resp BP Pulse Ox 97.7 F 74 18 160/80 H 96 07/25/17 15:45 07/25/17 16:00 07/25/17 15:45 07/25/17 15:45 07/25/17 15:45 Intake and Output: 07/25/17 07/26/17 18:59 06:59 Intake Total 410 Output Total 630 900 Balance -220 -900 - Medications Medications: Current Medications Acetaminophen (Tylenol 325mg Tab) 650 mg PO Q8H PRN PRN Reason: Pain, Mild (1-3) Last Admin: 07/24/17 22:35 Dose: 650 mg Docusate Sodium (Colace) 100 mg PO TID [facility] Last Admin: 07/25/17 17:18 Dose: 100 mg Enoxaparin Sodium (Lovenox) 40 mg SC DAILY [facility] Furosemide (Lasix) 20 mg PO BID [facility] Last Admin: 07/22/17 09:11 Dose: 20 mg Home Med (Etanercept [Enbrel]) 50 mg SC QWK [facility] Last Admin: 07/20/17 14:20 Dose: Not Given Cefazolin Sodium/Dextrose (Ancef Iv 2 Gm Duplex) 2 gm in 50 mls @ 100 mls/hr IVPB Q8 [facility] Last Admin: 07/25/17 22:06 Dose: 100 mls/hr Gentamicin Sulfate 70 mg/ (Sodium Chloride) 101.75 mls @ 100 mls/hr IVPB Q24H [facility] Stop: 08/07/17 00:02 Insulin Aspart (Novolog) 0 unit SC ACHS [facility] PRN Reason: Protocol Last Admin: 07/25/17 16:59 Dose: Not Given Lactobacillus Acidophilus (Bacid Acidophilus) 1 cap PO BID [facility] Last Admin: 07/25/17 17:53 Dose: 1 cap Lidocaine (Lidoderm) 1 ea TD DAILY [facility] Last Admin: 07/25/17 10:48 Dose: 1 ea Losartan Potassium (Cozaar) 25 mg PO DAILY [facility] Last Admin: 07/25/17 10:47 Dose: 25 mg Memantine (Namenda) 10 mg PO BID [facility] Last Admin: 07/25/17 17:20 Dose: 10 mg Metformin HCl (Glucophage) 1,000 mg PO DAILY [facility] Last Admin: 07/25/17 10:47 Dose: Not Given Metoprolol Succinate (Toprol Xl) 50 mg PO DAILY [facility] Last Admin: 07/25/17 10:48 Dose: 50 mg Nitroglycerin (Nitro-Dur 0.2 Mg/Hr Patch) 1 patch TD DAILY [facility] Last Admin: 07/25/17 10:48 Dose: 1 patch Nitroglycerin (Nitrostat Sl Tab) 0.4 mg SL Q5M PRN PRN Reason: chest pain Ondansetron HCl (Zofran Inj) 4 mg IVP ONCE PRN PRN Reason: Nausea/Vomiting Pantoprazole Sodium (Protonix Ec Tab) 40 mg PO DAILY [facility] Last Admin: 07/25/17 10:48 Dose: 40 mg Potassium Chloride (K-Dur 20 Meq Er Tab) 20 meq PO DAILY [facility] Last Admin: 07/25/17 10:47 Dose: 20 meq Rifampin (Rifampin Cap) 300 mg PO TID [facility] Last Admin: 07/25/17 17:20 Dose: 300 mg Rosuvastatin Calcium (Crestor) 2.5 mg PO HS [facility] Last Admin: 07/25/17 22:07 Dose: 2.5 mg Sitagliptin Phosphate (Januvia) 50 mg PO DAILY [facility] Last Admin: 07/25/17 10:47 Dose: Not Given Tramadol HCl (Ultram) 50 mg PO Q8H PRN PRN Reason: Pain, moderate (4-7) Last Admin: 07/25/17 17:18 Dose: 50 mg - Labs Labs: 07/25/17 07:13 07/25/17 07:13 PT 13.8 SECONDS (9.7-12.2) H 07/19/17 10:25 INR 1.2 07/19/17 10:25 APTT 26 SECONDS (21-34) 07/16/17 09:14 Assessment and Plan - Assessment and Plan (Free Text) Assessment: IMPRESSION; - PROSTHETIC MITRAL- VALVE ENDOCARDITIS.(+VE VEGETATIONS could NOT BE RULED OUT ON 2-d ECHO ). -HX OF CABG /MVR. - MSSA SEPTIC ARTHRITIS LEFT KNEE/WITH PSEUDOGOUT /? OSTEOMYLITIS -S/P ARTHROSCOPIC IRRIGATION/DEBRIDEMENT, LEFT KNEE ARTHROSCOPIC PATELLAR MEDIAL /LATERAL MENISCECTOMY AND EXTENSIVE SYNOVECTOMY/CHONDROPLASTY TROCHLEA 07/19/17 -CONGESTIVE HEART FAILURE. -S/P THORACENTESIS. lYMPHOCYTIC EFFUSION -ATRIAL FIBRILLATION. -HYPONATREMIA- IMPROVING. -DM-2 -RHEUMATOID ARTHRITIS/OSTEOPOROSIS BY HISTORY. PLAN PATIENT WILL NEED PROLONGED ANTIBIOTICS 6-8 WEEKS. REPEAT BLOOD CULTURES -negative so far. PICC LINE in place DISCHARGE PLAN TO REHAB. CASE DISCUSSED WITH THE RESEARCH TECH MS HEIKE HILTON. 1-Continue iv ANCEF 2 G iv PIGGYBACK EVERY 8 HOURLY.07/18/17 x 6wks. 2-ADD IV GENTAMICIN 100 MG IVPB LD TODAY.07/24/17. F/U BY IV GENTAMICIN 70 MILLIGRAMS iv PIGGYBACK ONCE A DAY DAILY X 2WKS.07/24/17 TILL 08/07/17 3-ADD PO RIFAMPIN 300MG PO TID X 6WKS. F/U LFTS WEEKLY. F/U RENAL FUNCTION WEEKLY.
[2017-07-25] MEDS ORDERED: Gentamicin 70 MG in Sodium Chloride 0.9% 100 ML IVPB SCH (23:00)
--- NOTE | 2017-07-26 02:12 | PN ---
SUBJECTIVE: The patient seen and examined at the bedside in the morning, looking comfortable. Leg pain is getting better, tolerating food very well. No nausea, vomiting, or diarrhea. No hematuria or hematochezia. No headache. No dizziness. No chest pain. No palpitations. No fever. No chills. PHYSICAL EXAMINATION: VITAL SIGNS: Temperature 97.7, pulse 68, blood pressure 160/80, and respiratory rate is 18. HEENT: Head is normocephalic and atraumatic. Eyes, PERRLA. Extraocular muscles intact. Conjunctivae clear. Nose patent. Mucous membrane moist. NECK: Supple. No carotid bruits, JVD, or thyromegaly. CHEST: Bilaterally symmetrical. HEART: S1, S2 positive. LUNGS: Clear to auscultation. ABDOMEN: Soft. Bowel sounds positive. No organomegaly. EXTREMITIES: No edema. No cyanosis. NEUROLOGICAL: The patient is awake and alert, moving all 4 extremities. No focal deficit except that left leg has dressing. Follows simple commands. MEDICATIONS: Cefazolin, Bacid acidophilus, Colace, Cozaar, Crestor, gentamicin, metformin, Januvia, potassium, Lasix, Lovenox, Namenda, nitroglycerin, Novolin, Protonix, rifampin, Toprol, and tramadol. LABORATORY DATA: White blood cell 4.4, hemoglobin 9.0, hematocrit 27.1, and platelets 231. Sodium 125, potassium 4.5, BUN 30, creatinine 0.7, glucose 123, and calcium 8.1. ASSESSMENT AND PLAN: Ms. Itz Eli is a 72-year-old lady with leukopenia, anemia, hyponatremia, hypochloremia, hyperglycemia, hypocalcemia, has multiple medical problems, today is POD 5 for surgery of the knee by Dr. Mcmillan, Orthopedic. Left knee discomfort is getting better. 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 The patient is on prolonged antibiotics, maybe, for two months. Repeat blood cultures are negative. A PICC line is placed, need his daptomycin. Discharge plan is to rehabilitation. Case discussed with the social media project manager, bottle caser, and patient's nurse. Continue Ancef, add gentamicin, and add p.o. rifampin for six weeks. Followup liver function test weekly. The patient's urine color will be orange, informed the patient. I reviewed Dr. Avina's note. She had discussion done with Hipolito. Continue current treatment, gastrointestinal and deep venous thrombosis prophylaxis, and repeat labs. Kallie Jordan MD MTDD
[2017-07-26] MEDS: ceFAZolin IV 2 gm in Dextrose 2 GM/50 ML BAG IVPB SCH ×2 (05:33→13:48)
[2017-07-26 08:00] LABS: MEAN CORPUSCULAR HEMOGLOBIN 29.2 pg (27.0-31.0); MEAN CORPUSCULAR HGB CONC 33.3 g/dL (33.0-37.0); MEAN PLATELET VOLUME 8.1 fL (7.2-11.7); PLATELET COUNT 212 K/uL (130-400); RBC 3.09 Mil/uL (3.80-5.20); WHITE BLOOD COUNT 3.7 K/uL (4.8-10.8)
[2017-07-26] MEDS: (Novolog) Insulin Aspart, Recombinant 100 u/ml 10 ml vial SC SCH ×2 (08:03→12:03)
[2017-07-26 08:06] VITALS: RESP 20
[2017-07-26 08:37] LABS: ALB/GLOB RATIO 0.5 (1.0-2.1); ALBUMIN 2.4 g/dL (3.5-5.0); ALT/SGPT 16 U/L (9-52); AST/SGOT 24 U/L (14-36); BLOOD UREA NITROGEN 11 mg/dL (7-17); CALCIUM 8.3 mg/dl (8.6-10.4); GFR AFRICAN-AMERICAN > 60; GFR NON-AFRICAN AMERICAN > 60
[2017-07-26] MEDS: Metoprolol Succinate 50 mg XL Tab PO SCH (09:07)
[2017-07-26] MEDS: Lactobacillus Acidophilus 500 MU Cap PO SCH (09:07)
[2017-07-26] MEDS: Pantoprazole 40 mg EC Tab PO SCH (09:07)
[2017-07-26] MEDS: Potassium Chloride 20 mEq ER Tab PO SCH (09:07)
[2017-07-26] MEDS: Nitroglycerin 0.2 mg/hr Top Patch TD SCH (09:07)
[2017-07-26] MEDS: Lidocaine 5% Patch TD SCH (09:07)
[2017-07-26 10:27] LABS: EOS # 0.1 K/uL (0.0-0.7); LYMPH # 0.2 K/uL (1.0-4.3); MONO # 0.2 K/uL (0.0-0.8); NEUT # 3.2 K/uL (1.8-7.0)
[2017-07-26 10:28] LABS: ANISOCYTOSIS SLIGHT; EOSINOPHIL 1 % (0-4); HYPOCHROMIC SLIGHT; LYMPHOCYTE 8 % (20-40); MONOCYTE 6 % (0-10); NEUTROPHIL 85 % (50-75); PLATELET ESTIMATE NORMAL (NORMAL); POIKILOCYTOSIS SLIGHT; TOTAL CELLS COUNTED 100
[2017-07-26 10:29] LABS: LARGE PLATELETS PRESENT; OVALOCYTES SLIGHT; TARGET CELLS SLIGHT
[2017-07-26] MEDS ORDERED: Oxycodone/Acetaminophen 5/325 mg Tab PO ONE (11:45)
[2017-07-26 15:33] VITALS: BP 126/81; PULSE 70; TEMP 97.9; O2SAT 98
[2017-07-26 16:54] LABS: OSMOLALITY,URINE 194 mosm/kg (300-1000)
--- NOTE | 2017-07-26 17:56 | PCM.HF ---
Heart Failure Core Measure - Heart Failure Ejection Fraction: 40 % or Greater REENA Inhibitor Prescribed: No Contraindication/Reason for not providing: arb Beta-Trini Prescribed: Metoprolol Succinate Angiotensin II Receptor Trini Prescribed: Yes AnticoagulationTherapy for Atrial Fibrillation/Atrialflutter: No Contraindication/Reason for not providing: no hx afib Aldosterone Antagonist Prescribed: No Contraindication/Reason for not providing: PER CARDIOLAOGIST CHOICE Hydralazine Nitrate Prescribed: No Contraindication/Reason for not providing: PER CARDIOLAOGIST CHOICE Implantable Cardioverter Defibrillator Therapy: No Contraindication/Reason for not providing: out patient eval for poss aicd Cardiac Resynchronization Therapy Prescribed: No Contraindication/Reason for not providing: out patient eval for poss aicd - Follow up Will be discharged to: [facility] ([facility]) Follow Up Date (must be within 7 days from discharge): 07/31/17 Follow Up Time: 09:00
== END 2017-07-26 16:27 | DRG 488 ==
LOC: C.ER 17:49 → C.9E 22:54 → C.5S 07-13 17:41
PROVIDERS: ADMIT Internal Medicine; ATTEND Internal Medicine
PROC: 0SBD4ZZ Excision of Left Knee Joint, Percutaneous Endoscopic Approach (ICD-10-PCS; 2017-07-19)
PROC: 0SBD4ZZ Excision of Left Knee Joint, Percutaneous Endoscopic Approach (ICD-10-PCS; 2017-07-19)
PROC: 0SBD4ZZ Excision of Left Knee Joint, Percutaneous Endoscopic Approach (ICD-10-PCS; 2017-07-19)
PROC: 0W993ZZ Drainage of Right Pleural Cavity, Percutaneous Approach (ICD-10-PCS; principal; 2017-07-19 12:07)
DX: M00.9 Pyogenic arthritis, unspecified (principal); L03.116 Cellulitis of left lower limb; E11.65 Type 2 diabetes mellitus with hyperglycemia; I48.91 Unspecified atrial fibrillation; I50.42 Chronic combined systolic (congestive) and diastolic (congestive) heart failure; I11.0 Hypertensive heart disease with heart failure; E87.1 Hypo-osmolality and hyponatremia; E86.0 Dehydration; M87.9 Osteonecrosis, unspecified; I25.5 Ischemic cardiomyopathy; M06.9 Rheumatoid arthritis, unspecified; M10.9 Gout, unspecified; M11.9 Crystal arthropathy, unspecified; M65.9 Synovitis and tenosynovitis, unspecified; M94.20 Chondromalacia, unspecified site; Z87.891 Personal history of nicotine dependence; Z95.1 Presence of aortocoronary bypass graft; Z95.2 Presence of prosthetic heart valve; M47.816 Spondylosis without myelopathy or radiculopathy, lumbar region; J44.9 Chronic obstructive pulmonary disease, unspecified; D72.819 Decreased white blood cell count, unspecified; E87.6 Hypokalemia; I25.10 Atherosclerotic heart disease of native coronary artery without angina pectoris; M23.201 Derangement of unspecified lateral meniscus due to old tear or injury, left knee; M23.204 Derangement of unspecified medial meniscus due to old tear or injury, left knee

== ENCOUNTER 2017-08-01 18:54 | Inpatient (IN) | payer MEDICARE, MEDICAID ==
[2017-08-01 19:02] VITALS: BMI 27.4
[2017-08-01] MEDS ORDERED: Iodixanol 320 mg/ml 150 ml Bottle IV ONE (19:18)
--- NOTE | 2017-08-01 19:24 | C.PDOC ---
History Of Present Illness 72 year old female is brought to the ED by ALS for evaluation of seizure like activity that was witness by ALS. Patient was given 2 mg of Ativan BELT MAKER HELPER. Per , patient was talking normally approximately an hour ago and after he noticed she started shaking. Patient is currently unresponsive only groaning and does not respond to external rub. Patient has a GS of 4. Further history is unable to be obtained due to patients clinical condition. Patient's also reports patient had fluids taken out of her left knee a procedure done at [facility] and was told by her doctor she had an infection on her knee. Chief Complaint (Nursing): Altered Mental Status History Per: EMS, Family History/Exam Limitations: Clinical Condition Onset/Duration Of Symptoms: Hrs Onset Of Symptoms: <3 Hours Current Symptoms Are (Timing): Still Present Usual Baseline: Non-responsive Exacerbating Factor(s): Unknown Use Of Anticoag/Antiplatelets: Unknown Speech Is: Other (Groaning) Decreased Ability To: Stand, Walk, Sit Recent travel outside of the [place]: No Additional History Per: EMS, Family Past Medical History Reviewed: Historical Data, Nursing Documentation, Vital Signs Vital Signs: Last Vital Signs Temp 98.7 F 08/02/17 01:00 Pulse 87 08/02/17 01:00 Resp 28 H 08/02/17 01:00 BP 156/84 H 08/02/17 00:07 Pulse Ox 100 08/02/17 01:00 - Medical History PMH: Anemia, Arthritis, Atrial Fibrillation, CAD, Cardia Arrhythmia, CHF, COPD, Dementia, Diabetes, HTN, Hypercholesterolemia, Osteoporosis, Rheumatoid Arthritis Denies: Hepatitis, HIV, Chronic Kidney Disease, Seizures, Sexually Transmitted Disease Surgical History: Appendectomy, CABG, Coronary Stent Denies: Pacemaker - [facility] Procedures ASSISTANCE WITH RESPIRATORY VENTILATION, <24 HRS, CPAP (03/24/15) CORONAR ARTERIOGR-2 CATH (04/29/13) DRAINAGE OF RIGHT PLEURAL CAVITY, PERCUTANEOUS APPROACH (07/12/17) ESOPHAGOGASTRODUODENOSCOPY [EGD] W/CLOSED BIOPSY (11/01/14) EXCISION OF LEFT KNEE JOINT, PERC ENDO APPROACH (07/12/17) EXCISION OF SMALL INTESTINE, ENDO, DIAGN (05/20/15) FLUOROSCOPY OF LEFT HEART USING LOW OSMOLAR CONTRAST (06/25/16) FLUOROSCOPY OF MULT COR A GRAFT USING L OSM CONTRAST (06/25/16) FLUOROSCOPY OF MULT COR ART USING L OSM CONTRAST (06/25/16) LEFT HEART CARDIAC CATH (04/29/13) LT HEART ANGIOCARDIOGRAM (04/29/13) MEASURE OF CARDIAC SAMPL & PRESSURE, L HEART, PERC APPROACH (06/25/16) PACKED CELL TRANSFUSION (11/01/14) PERCUTANEOUS TRANSLUMINAL CORONARY ANGIOPLASTY [PTCA] (04/29/13) PLAIN RADIOGRAPHY OF LEFT HEART USING OTHER CONTRAST (03/24/15) PLAIN RADIOGRAPHY OF MULT COR ART USING OTH CONTRAST (03/24/15) PROCEDURE ON SINGLE VESSEL (04/29/13) TRANSFUSE NONAUT RED BLOOD CELLS IN PERIPH VEIN, PERC (05/20/15) Family History: States: Unknown Family Hx - Social History Hx Tobacco Use: Yes Hx Alcohol Use: No Hx Substance Use: No - Immunization History Hx Tetanus Toxoid Vaccination: No Hx Influenza Vaccination: No Hx Pneumococcal Vaccination: No Review Of Systems Review Of Systems: ROS cannot be obtained secondary to pt's inabilty to answer questions. Physical Exam - Physical Exam Appears: Non-toxic, Other (Unresponsive, groaning ) Skin: Normal Color, Warm, Dry Head: Atraumatic, Normacephalic Eye(s): bilateral: Other (Pupils dialated 7 mm) Nose: No Discharge, No Deformity Oral Mucosa: Moist Neck: Supple Chest: Symmetrical Cardiovascular: Rhythm Regular, No Murmur Respiratory: Normal Breath Sounds, No Rales, No Rhonchi, No Wheezing Gastrointestinal/Abdominal: Soft, No Tenderness Extremity: No Swelling, Other (Left knee surgical scars) Neurological/Psych: Inappropriate Response To Command ED Course And Treatment - Laboratory Results Result Diagrams: 08/01/17 19:55 08/02/17 01:25 ECG: Interpreted By Me, Viewed By Me ECG Rhythm: Sinus Tachycardia, R BBB (incomplete) Interpretation Of ECG: Left axis deviation, incomplete RBBB, left ventricular hyperthophy Rate From EC O2 Sat by Pulse Oximetry: 100 - CT Scan/US CT head Other Rad Studies (CT/US): Read By Radiologist, Radiology Report Reviewed CT/US Interpretation: EXAM: CT Head Without Intravenous Contrast. CLINICAL HISTORY: 72 years old, female; Signs and symptoms; Altered mental status/ memory loss; Additional info: Code. stroke. TECHNIQUE: Axial computed tomography images of the head/brain without intravenous contrast. All CT scans at. this facility use one or more dose reduction techniques, viz.: automated exposure control; ma/kV. adjustment per patient size (including targeted exams where dose is matched to indication; i.e. head);. or iterative reconstruction technique. Coronal and sagittal reformatted images were created and reviewed. COMPARISON: No relevant prior studies available. FINDINGS: Brain: Moderate atrophy. No intracranial hemorrhage. No mass. Few scattered foci of decreased. attenuation within periventricular/subcortical white matter. Probable chronic lacunar infarcts within. basal ganglia. No definite edema. Ventricles: No hydrocephalus. Bones/joints: No acute fracture. Soft tissues: Unremarkable. Vasculature: Atherosclerotic disease of intracranial arteries. Sinuses: No acute sinusitis. Mastoid air cells: No mastoid effusion. Orbits: Unremarkable as visualized. IMPRESSION: 1. Nonspecific white matter changes. Acute infarction may be CT occult within first 24 hours. If a. focal deficit persists , consider followup CT or MRI for further evaluation. 2. Incidental/non-acute findings are described above CTA head neck Other Rad Studies (CT/US): Read By Radiologist, Radiology Report Reviewed CT/US Interpretation: EXAM: CT Angiography Head With Intravenous Contrast. CLINICAL HISTORY: 72 years old, female; Signs and symptoms; Weakness; Additional info: Cp. TECHNIQUE: 100 mL of VISIPAQUE 320 administered intravenously. COMPARISON: CT - HEAD W/O (CODE STROKE) 2017-08-01 19:25. FINDINGS: VASCULATURE: Right common carotid artery: No significant stenosis. No dissection or occlusion. Right internal carotid artery: Extracranial segment is patent with no significant stenosis. No. dissection or occlusion. Right external carotid artery: No occlusion. Right vertebral artery: No significant stenosis. No dissection or occlusion. Left common carotid artery: No significant stenosis. No dissection or occlusion. Left internal carotid artery: Extracranial segment is patent with no significant stenosis. No. dissection or occlusion. Left external carotid artery: No occlusion. Left vertebral artery: No significant stenosis. No dissection or occlusion. NECK: Bones/joints: No acute fracture. No dislocation. Soft tissues: Unremarkable as visualized. No mass. Thyroid: Right thyroid lobe calcification. Lung apices: Small right pleural effusion. Tubes, lines and devices: Catheter tip in superior vena cava. CAROTID STENOSIS REFERENCE USING NASCET CRITERIA: % ICA stenosis = (1 - narrowest ICA diameter/diameter of distal cervical ICA) x 100. Mild - <50% stenosis. Moderate - 50-69% stenosis. Severe - 70-94% stenosis. Near occlusion - 95-99% stenosis. Occluded - 100% stenosis. IMPRESSION: 1. No flow limiting cervical carotid artery stenosis or vessel occlusion. 2. Patent vertebral arteries. Axial computed tomographic angiography images of the head with intravenous contrast using CT. angiography protocol. All CT scans at this facility use one or more dose reduction techniques, viz.: automated exposure control; ma/kV adjustment per patient size (including targeted exams where. dose is matched to indication; i.e. head); or iterative reconstruction technique. MIP reconstructed images were created and reviewed. Coronal and sagittal reformatted images were created and reviewed. CONTRAST: 100 mL of VISIPAQUE 320 administered intravenously. COMPARISON: No relevant prior studies available. FINDINGS: Right internal carotid artery: No acute findings. Intracranial segment is patent with no significant. stenosis. No aneurysm. Right anterior cerebral artery: No occlusion or significant stenosis. No aneurysm. Right middle cerebral artery: No occlusion or significant stenosis. No aneurysm. Right posterior cerebral artery: No occlusion or significant stenosis. No aneurysm. Right vertebral artery: Unremarkable as visualized. Left internal carotid artery: No acute findings. Intracranial segment is patent with no significant. stenosis. No aneurysm. Left anterior cerebral artery: No occlusion or significant stenosis. No aneurysm. Left middle cerebral artery: No occlusion or significant stenosis. No aneurysm. Left posterior cerebral artery: No occlusion or significant stenosis. No aneurysm. Left vertebral artery: Unremarkable as visualized. Basilar artery: Unremarkable. No occlusion or significant stenosis. No aneurysm. IMPRESSION: Unremarkable intracranial arteries. . EXAM: CT Angiography Neck With Intravenous Contrast. CLINICAL HISTORY: 72 years old, female; Signs and symptoms; Weakness ; Additional info: Cp. TECHNIQUE: Axial computed tomographic angiography images of the neck with intravenous contrast using CT. angiography protocol. All CT scans at this facility use one or more dose reduction techniques, viz.: automated exposure control; ma/kV adjustment per patient size (including targeted exams where. dose is matched to indication; i.e. head); or iterative reconstruction technique. MIP reconstructed images were created and reviewed. CONTRAST: NIHSS Stroke Scale - Date/Time Evaluation Performed Date Performed: 08/01/17 Time Performed: 19:15 When Was NIHSS Performed: Baseline - How Severe is the Stoke Level of Consciousness: 3=Unresponsive LOC to Questions: 2=Neither correct LOC to commands: 2=Neither correct Best Gaze: 1=Partial gaze palsy Visual: 0=No visual loss Facial: 1=Minor asymmetry Motor Arm - Left: 4=No movement Motor Arm - Right: 4=No movement Motor Leg - Left: 4=No movement Motor Leg - Right: 4=No movement Limb Ataxia: 0=Absent Sensory: 0=Normal Best Language: 0=No aphasia Dysarthia: 2=Severe, near unintelligible or worse Extinction & Inattention (Neglect): 2=Profound neglect(does not recognize own hand or orients to one side) Score: 29 Severity Of Stroke: 21-42= Severe Stroke Medical Decision Making Medical Decision Making: Impression: Seizure vs CVA Plan: * CT head * CT neck * Labs * CXR * Code stroke called * Spoke with Dr. Chantal matias CT return patient remained comatose, will try reversal oif Ativan given in the field if no improvement shown patient will be intubated for airway protection. Patient will receive 2 mg of Flumazenil stil, awaiting reading of head CT by neurologist. Patient was intubated successfully and was given Etomidate. CXR showe ET tube looks good with good placement, no active pulmonary disease Disposition - Disposition Disposition: HOSPITALIZED Disposition Time: 04:38 Condition: SERIOUS - Clinical Impression Clinical Impression: Hyponatremia, Seizure - Scribe Statement The provider has reviewed the documentation as recorded by the Scribray Tomas All medical record entries made by the Ginetteibray were at my direction and personally dictated by me. I have reviewed the chart and agree that the record accurately reflects my personal performance of the history, physical exam, medical decision making, and the department course for this patient. I have also personally directed, reviewed, and agree with the discharge instructions and disposition.
--- NOTE | 2017-08-01 19:42 | CT ---
EXAM: CT Head Without Intravenous Contrast CLINICAL HISTORY: 72 years old, female; Signs and symptoms; Altered mental status/memory loss; Additional info: Code stroke TECHNIQUE: Axial computed tomography images of the head/brain without intravenous contrast. All CT scans at this facility use one or more dose reduction techniques, viz.: automated exposure control; ma/kV adjustment per patient size (including targeted exams where dose is matched to indication; i.e. head); or iterative reconstruction technique. Coronal and sagittal reformatted images were created and reviewed. COMPARISON: No relevant prior studies available. FINDINGS: Brain: Moderate atrophy. No intracranial hemorrhage. No mass. Few scattered foci of decreased attenuation within periventricular/subcortical white matter. Probable chronic lacunar infarcts within basal ganglia. No definite edema. Ventricles: No hydrocephalus. Bones/joints: No acute fracture. Soft tissues: Unremarkable. Vasculature: Atherosclerotic disease of intracranial arteries. Sinuses: No acute sinusitis. Mastoid air cells: No mastoid effusion. Orbits: Unremarkable as visualized. IMPRESSION: 1. Nonspecific white matter changes. Acute infarction may be CT occult within first 24 hours. If a focal deficit persists, consider followup CT or MRI for further evaluation. 2. Incidental/non-acute findings are described above.
[2017-08-01] MEDS ORDERED: Flumazenil 0.1 mg/ml Inj (5ml) IVP STA ×2 (19:47→19:48)
[2017-08-01] MEDS ORDERED: Flumazenil 0.1 mg/ml Inj (5ml) IVP ONE (19:57)
[2017-08-01 20:01] LABS: BASO % 0.2 % (0.0-2.0); EOS # 0.1 K/uL (0.0-0.7); EOS % 0.6 % (0.0-4.0); HEMOGLOBIN 9.8 g/dL (11.0-16.0); LYMPH # 1.7 K/uL (1.0-4.3); LYMPH % 16.8 % (20.0-40.0); MEAN CELL VOLUME 87.7 fL (81.0-99.0); MEAN CORPUSCULAR HGB CONC 33.1 g/dL (33.0-37.0); MEAN PLATELET VOLUME 8.5 fL (7.2-11.7); MONO # 0.3 K/uL (0.0-0.8); MONO % 2.8 % (0.0-10.0); NEUT # 8.1 K/uL (1.8-7.0); NEUT % 79.6 % (50.0-75.0); RBC 3.38 Mil/uL (3.80-5.20); RED CELL DISTRIBUTION WIDTH 17.2 % (11.5-14.5)
[2017-08-01 20:11] LABS: WHITE BLOOD COUNT 10.2 K/uL (4.8-10.8)
[2017-08-01 20:13] LABS: INR 1.3; PROTHROMBIN TIME 14.6 SECONDS (9.7-12.2)
[2017-08-01 20:15] LABS: ALB/GLOB RATIO 0.6 (1.0-2.1); ALBUMIN 2.6 g/dL (3.5-5.0); ALT/SGPT 10 U/L (9-52); AST/SGOT 36 U/L (14-36); BLOOD UREA NITROGEN 11 mg/dL (7-17); CALCIUM 8.1 mg/dl (8.6-10.4); GFR AFRICAN-AMERICAN > 60; GFR NON-AFRICAN AMERICAN > 60; HDL CHOLESTEROL 20 mg/dL (30-70)
[2017-08-01 20:23] LABS: LDL CHOLESTEROL 117 mg/dL (0-129)
[2017-08-01] MEDS ORDERED: Sodium Chloride 0.9% 1,000 ML IV ONE (20:41)
--- NOTE | 2017-08-01 20:43 | CT ---
EXAM: CT Angiography Head With Intravenous Contrast CLINICAL HISTORY: 72 years old, female; Signs and symptoms; Weakness; Additional info: Cp TECHNIQUE: Axial computed tomographic angiography images of the head with intravenous contrast using CT angiography protocol. All CT scans at this facility use one or more dose reduction techniques, viz.: automated exposure control; ma/kV adjustment per patient size (including targeted exams where dose is matched to indication; i.e. head); or iterative reconstruction technique. MIP reconstructed images were created and reviewed. Coronal and sagittal reformatted images were created and reviewed. CONTRAST: 100 mL of VISIPAQUE 320 administered intravenously. COMPARISON: No relevant prior studies available. FINDINGS: Right internal carotid artery: No acute findings. Intracranial segment is patent with no significant stenosis. No aneurysm. Right anterior cerebral artery: No occlusion or significant stenosis. No aneurysm. Right middle cerebral artery: No occlusion or significant stenosis. No aneurysm. Right posterior cerebral artery: No occlusion or significant stenosis. No aneurysm. Right vertebral artery: Unremarkable as visualized. Left internal carotid artery: No acute findings. Intracranial segment is patent with no significant stenosis. No aneurysm. Left anterior cerebral artery: No occlusion or significant stenosis. No aneurysm. Left middle cerebral artery: No occlusion or significant stenosis. No aneurysm. Left posterior cerebral artery: No occlusion or significant stenosis. No aneurysm. Left vertebral artery: Unremarkable as visualized. Basilar artery: Unremarkable. No occlusion or significant stenosis. No aneurysm. IMPRESSION: Unremarkable intracranial arteries. EXAM: CT Angiography Neck With Intravenous Contrast CLINICAL HISTORY: 72 years old, female; Signs and symptoms; Weakness; Additional info: Cp TECHNIQUE: Axial computed tomographic angiography images of the neck with intravenous contrast using CT angiography protocol. All CT scans at this facility use one or more dose reduction techniques, viz.: automated exposure control; ma/kV adjustment per patient size (including targeted exams where dose is matched to indication; i.e. head); or iterative reconstruction technique. MIP reconstructed images were created and reviewed. CONTRAST: 100 mL of VISIPAQUE 320 administered intravenously. COMPARISON: CT - HEAD W/O (CODE STROKE) 2017-08-01 19:25 FINDINGS: VASCULATURE: Right common carotid artery: No significant stenosis. No dissection or occlusion. Right internal carotid artery: Extracranial segment is patent with no significant stenosis. No dissection or occlusion. Right external carotid artery: No occlusion. Right vertebral artery: No significant stenosis. No dissection or occlusion. Left common carotid artery: No significant stenosis. No dissection or occlusion. Left internal carotid artery: Extracranial segment is patent with no significant stenosis. No dissection or occlusion. Left external carotid artery: No occlusion. Left vertebral artery: No significant stenosis. No dissection or occlusion. NECK: Bones/joints: No acute fracture. No dislocation. Soft tissues: Unremarkable as visualized. No mass. Thyroid: Right thyroid lobe calcification. Lung apices: Small right pleural effusion. Tubes, lines and devices: Catheter tip in superior vena cava. CAROTID STENOSIS REFERENCE USING NASCET CRITERIA: % ICA stenosis = (1 - narrowest ICA diameter/diameter of distal cervical ICA) x 100. Mild - <50% stenosis. Moderate - 50-69% stenosis. Severe - 70-94% stenosis. Near occlusion - 95-99% stenosis. Occluded - 100% stenosis. IMPRESSION: 1. No flow limiting cervical carotid artery stenosis or vessel occlusion. 2. Patent vertebral arteries.
[2017-08-01 21:42] LABS: BARBITURATES, UR NEGATIVE (NEGATIVE); BENZODIAZEPINES, UR NEGATIVE (NEGATIVE); PHENCYCLIDINE, UR NEGATIVE (NEGATIVE)
[2017-08-01 21:44] LABS: OPIATES, UR POSITIVE (NEGATIVE)
[2017-08-01 22:21] LABS: ABG ALLEN TEST POS; ARTERIAL BLOOD GAS HCO3 30.3 mmol/L (21-28); ARTERIAL BLOOD GAS HEMOGLOBIN 9.9 g/dL (11.7-17.4); ARTERIAL BLOOD GAS O2 SAT 100.9 % (95-98); ARTERIAL BLOOD GAS PCO2 38 mm/Hg (35-45); ARTERIAL BLOOD GAS PH 7.51 (7.35-7.45); ARTERIAL BLOOD GAS PO2 402 mm/Hg (80-100); ARTERIAL BLOOD GAS TCO2 31.5 mmol/L (22-28)
[2017-08-01] MEDS ORDERED: Gentamicin 80 mg/2mL Inj. IVPB SCH (23:00)
[2017-08-01] MEDS ORDERED: Gentamicin 70 MG in Sodium Chloride 0.9% 100 ML IVPB SCH (23:15)
[2017-08-02] MEDS ORDERED: ceFAZolin IV 2 gm in Dextrose 2 GM/50 ML BAG IVPB SCH
[2017-08-02] MEDS ORDERED: ceFAZolin 2 GM in Sodium Chloride 0.9% 100 ML IVPB SCH
[2017-08-02 01:37] LABS: CREATININE, RANDOM URINE 21.4 mg/dL
[2017-08-02 01:40] LABS: ALB/GLOB RATIO 0.6 (1.0-2.1); ALBUMIN 2.7 g/dL (3.5-5.0); ALT/SGPT < 6 U/L (9-52); AST/SGOT 38 U/L (14-36); BLOOD UREA NITROGEN 11 mg/dL (7-17); CALCIUM 8.2 mg/dl (8.6-10.4); GFR AFRICAN-AMERICAN > 60; GFR NON-AFRICAN AMERICAN > 60; MAGNESIUM 1.2 mg/dL (1.6-2.3)
[2017-08-02] MEDS ORDERED: Potassium Chloride 20 mEq/15 ml LIQ UD PO STA (02:14)
[2017-08-02] MEDS ORDERED: Propofol 10 mg/ml 1,000 MG/100 ML VIAL IV PRN (02:43)
[2017-08-02] MEDS ORDERED: Propofol 10 mg/ml Inj (100 ml) IV SCH (02:45)
[2017-08-02] MEDS: Magnesium Sulfate 1 gm in D5W 1 GM/100 ML BAG IVPB SCH ×2 (02:47→03:08)
[2017-08-02 05:30] LABS: ABG ALLEN TEST POS; ARTERIAL BLOOD GAS HCO3 31.1 mmol/L (21-28); ARTERIAL BLOOD GAS HEMOGLOBIN 12.8 g/dL (11.7-17.4); ARTERIAL BLOOD GAS PCO2 23 mm/Hg (35-45); ARTERIAL BLOOD GAS PH 7.68 (7.35-7.45); ARTERIAL BLOOD GAS PO2 173 mm/Hg (80-100); ARTERIAL BLOOD GAS TCO2 27.8 mmol/L (22-28)
[2017-08-02] MEDS ORDERED: Metoprolol 1 mg/ml Inj IVP ONE (05:55)
[2017-08-02 06:53] LABS: ALB/GLOB RATIO 0.5 (1.0-2.1); ALBUMIN 2.8 g/dL (3.5-5.0); ALT/SGPT < 6 U/L (9-52); AST/SGOT 35 U/L (14-36); BLOOD UREA NITROGEN 10 mg/dL (7-17); GFR AFRICAN-AMERICAN > 60; GFR NON-AFRICAN AMERICAN > 60; HDL CHOLESTEROL 23 mg/dL (30-70); MAGNESIUM 1.7 mg/dL (1.6-2.3)
[2017-08-02 06:56] LABS: BASO % 0.3 % (0.0-2.0); HEMOGLOBIN 9.6 g/dL (11.0-16.0); LYMPH # 1.1 K/uL (1.0-4.3); LYMPH % 15.1 % (20.0-40.0); MEAN CELL VOLUME 85.6 fL (81.0-99.0); MEAN CORPUSCULAR HEMOGLOBIN 28.9 pg (27.0-31.0); MEAN CORPUSCULAR HGB CONC 33.7 g/dL (33.0-37.0); MEAN PLATELET VOLUME 8.6 fL (7.2-11.7); MONO % 13.7 % (0.0-10.0); NEUT % 70.9 % (50.0-75.0); NRBC % 0.1 % (0.0-2.0); RBC 3.34 Mil/uL (3.80-5.20); RED CELL DISTRIBUTION WIDTH 16.4 % (11.5-14.5)
[2017-08-02 07:03] LABS: LDL CHOLESTEROL 128 mg/dL (0-129)
--- NOTE | 2017-08-02 08:13 | CP.PCM.CON ---
History of Present Illness - History of Present Illness History of Present Illness: 72 F with h/o ischemic cardiomyopthy low ef, dm, siadh, mssa left knee septic arthritis, s/p drainage, htn, RA, not on anticoagulation was in rehab, had 3 seizure episodes, and received ativan at the rehab. In ER patient was completely unresponsive, CT brain didn't show any acute changes, patient was intubated in ER for airway protection. Patient in short time started to respond appropriately and later in ICU need some sedation. Hyponatremia 123 noticed in with hypokalemia, and hypomagnesimia, patient had leg edema with skin wrinkles suggesting prior increased edema. Patient was on genta, cefazolin and refampin for MSSA septic arthritis. PMH as above PSH as above Allergies nkda Social history Meds noticed including tramadol for pain Review of Systems - Review of Systems All systems: reviewed and no additional remarkable complaints except (HPI) Past Patient History - Infectious Disease Hx of Infectious Diseases: None - Past Medical History & Family History Past Medical History?: Yes - Past Social History Smoking Status: Never Smoked - CARDIAC Hx Atrial Fibrillation: Yes Hx Cardia Arrhythmia: Yes Hx Congestive Heart Failure: Yes Hx Hypercholesterolemia: Yes Hx Hypertension: Yes Hx Pacemaker: No - PULMONARY Hx Chronic Obstructive Pulmonary Disease (COPD): Yes - NEUROLOGICAL Hx Dementia: Yes Hx Seizures: No - HEENT Hx HEENT Problems: No - RENAL Hx Chronic Kidney Disease: No - ENDOCRINE/METABOLIC Hx Endocrine Disorders: Yes Hx Diabetes Mellitus Type 2: Yes - HEMATOLOGICAL/ONCOLOGICAL Hx Anemia: Yes Hx Human Immunodeficiency Virus (HIV): No - INTEGUMENTARY Hx Dermatological Problems: No - MUSCULOSKELETAL/RHEUMATOLOGICAL Hx Arthritis: Yes Hx Osteoporosis: Yes Hx Rheumatoid Arthritis: Yes - GASTROINTESTINAL Hx Gastrointestinal Disorders: Yes Hx Ulcer: Yes Other/Comment: appendectomy history of endoscopies. ventral hernia - GENITOURINARY/GYNECOLOGICAL Hx Sexually Transmitted Disorders: No - PSYCHIATRIC Hx Substance Use: No - SURGICAL HISTORY Hx Appendectomy: Yes Hx Coronary Artery Bypass Graft: Yes Hx Coronary Stent: Yes - ANESTHESIA Hx Anesthesia: Yes Hx Anesthesia Reactions: No Hx Malignant Hyperthermia: No Meds Allergies/Adverse Reactions: Allergies Allergy/AdvReac Type Severity Reaction Status Date / Time No Known Allergies Allergy Verified 08/01/17 19:02 - Medications Medications: Current Medications Heparin Sodium (Porcine) (Heparin) 5,000 units SC Q12 [facility] Gentamicin Sulfate 70 mg/ (Sodium Chloride) 101.75 mls @ 100 mls/hr IVPB Q24H [facility] Last Admin: 08/01/17 23:46 Dose: 100 mls/hr Cefazolin Sodium/Dextrose (Ancef Iv 2 Gm Duplex) 2 gm in 50 mls @ 100 mls/hr IVPB Q8H [facility] Lactobacillus Acidophilus (Bacid Acidophilus) 1 cap PO BID [facility] Losartan Potassium (Cozaar) 25 mg PO DAILY [facility] Metoprolol Tartrate (Lopressor) 50 mg PO BID [facility] Nitroglycerin (Nitro-Dur 0.2 Mg/Hr Patch) 1 patch TD DAILY [facility] Pantoprazole Sodium (Protonix Ec Tab) 40 mg PO DAILY [facility] Rifampin (Rifampin Cap) 300 mg PO TID [facility] Rosuvastatin Calcium (Crestor) 2.5 mg PO HS [facility] Physical Exam - Additional Findings Additional findings: * HEENT KENNY * Neck Supple * Chest Clear * CVS regular, midline scar, * Ext 2+ edema but wrinkle present, left knee sutures * TILE [employer]IC gradual improvement in responsiveness, currently appropriate * Skin warm Results - Vital Signs Recent Vital Signs: Last Vital Signs Temp 98 F 08/01/17 23:39 Pulse 82 08/01/17 23:39 Resp 14 08/01/17 23:39 BP 159/84 H 08/01/17 23:39 Pulse Ox 100 08/01/17 23:39 - Labs Result Diagrams: 08/02/17 06:32 08/02/17 06:30 Labs: Laboratory Results - last 24 hr 08/01/17 08/01/17 08/01/17 19:07 19:55 19:55 WBC 10.2 D RBC 3.38 L Hgb 9.8 L Hct 29.7 L MCV 87.7 MCH 29.0 MCHC 33.1 RDW 17.2 H Plt Count 221 MPV 8.5 Neut % (Auto) 79.6 H Lymph % (Auto) 16.8 L Mcminn % (Auto) 2.8 Eos % (Auto) 0.6 Baso % (Auto) 0.2 Neut # (Auto) 8.1 H Lymph # (Auto) 1.7 Mcminn # (Auto) 0.3 Eos # (Auto) 0.1 Baso # (Auto) 0.0 PT 14.6 H INR 1.3 APTT 47 H Puncture Site pCO2 pO2 HCO3 ABG pH ABG Total CO2 ABG O2 Saturation ABG Base Excess ABG Hemoglobin ABG Carboxyhemoglobin POC ABG HHb (Measured) ABG Methemoglobin Reji Test A-a O2 Difference Respiratory Index Hgb O2 Saturation Vent Mode Mechanical Rate FiO2 Tidal Volume PEEP Sodium Potassium Chloride Carbon Dioxide Anion Gap BUN Creatinine Est GFR ( Amer) Est GFR (Non-Af Amer) POC Glucose (mg/dL) 221 H Random Glucose Hemoglobin A1c Calcium Total Bilirubin AST ALT Alkaline Phosphatase Troponin I Total Protein Albumin Globulin Albumin/Globulin Ratio Triglycerides Cholesterol LDL Cholesterol Direct HDL Cholesterol Ur Random Sodium Urine Opiates Screen Urine Methadone Screen Ur Barbiturates Screen Ur Phencyclidine Scrn Ur Amphetamines Screen U Benzodiazepines Scrn U Oth Cocaine Metabols U Cannabinoids Screen 08/01/17 08/01/17 08/01/17 19:55 19:55 21:18 WBC RBC Hgb Hct MCV MCH MCHC RDW Plt Count MPV Neut % (Auto) Lymph % (Auto) Mcminn % (Auto) Eos % (Auto) Baso % (Auto) Neut # (Auto) Lymph # (Auto) Mcminn # (Auto) Eos # (Auto) Baso # (Auto) PT INR APTT Puncture Site pCO2 pO2 HCO3 ABG pH ABG Total CO2 ABG O2 Saturation ABG Base Excess ABG Hemoglobin ABG Carboxyhemoglobin POC ABG HHb (Measured) ABG Methemoglobin Reji Test A-a O2 Difference Respiratory Index Hgb O2 Saturation Vent Mode Mechanical Rate FiO2 Tidal Volume PEEP Sodium 121 L Potassium 3.0 L Chloride 83 L Carbon Dioxide 31 H Anion Gap 11 BUN 11 Creatinine 0.6 L Est GFR ( Amer) > 60 Est GFR (Non-Af Amer) > 60 POC Glucose (mg/dL) Random Glucose 205 H Hemoglobin A1c 5.1 Calcium 8.1 L Total Bilirubin 0.4 AST 36 D ALT 10 Alkaline Phosphatase 139 H Troponin I 0.0190 Total Protein 7.3 Albumin 2.6 L Globulin 4.7 H Albumin/Globulin Ratio 0.6 L Triglycerides 94 D Cholesterol 143 LDL Cholesterol Direct 117 HDL Cholesterol 20 L Ur Random Sodium 103 Urine Opiates Screen Positive H Urine Methadone Screen Negative Ur Barbiturates Screen Negative Ur Phencyclidine Scrn Negative Ur Amphetamines Screen Negative U Benzodiazepines Scrn Negative U Oth Cocaine Metabols Negative U Cannabinoids Screen Negative 08/01/17 22:17 WBC RBC Hgb Hct MCV MCH MCHC RDW Plt Count MPV Neut % (Auto) Lymph % (Auto) Mcminn % (Auto) Eos % (Auto) Baso % (Auto) Neut # (Auto) Lymph # (Auto) Mcminn # (Auto) Eos # (Auto) Baso # (Auto) PT INR APTT Puncture Site Rra pCO2 38 pO2 402 H HCO3 30.3 H ABG pH 7.51 H ABG Total CO2 31.5 H ABG O2 Saturation 100.9 H ABG Base Excess 6.8 H ABG Hemoglobin 9.9 L ABG Carboxyhemoglobin 1.8 H POC ABG HHb (Measured) -0.9 L ABG Methemoglobin 1.8 Reji Test Pos A-a O2 Difference 264.0 Respiratory Index 0.7 Hgb O2 Saturation 97.3 Vent Mode Prvc Mechanical Rate 12 FiO2 100.0 Tidal Volume 500 PEEP 5 Sodium Potassium Chloride Carbon Dioxide Anion Gap BUN Creatinine Est GFR ( Amer) Est GFR (Non-Af Amer) POC Glucose (mg/dL) Random Glucose Hemoglobin A1c Calcium Total Bilirubin AST ALT Alkaline Phosphatase Troponin I Total Protein Albumin Globulin Albumin/Globulin Ratio Triglycerides Cholesterol LDL Cholesterol Direct HDL Cholesterol Ur Random Sodium Urine Opiates Screen Urine Methadone Screen Ur Barbiturates Screen Ur Phencyclidine Scrn Ur Amphetamines Screen U Benzodiazepines Scrn U Oth Cocaine Metabols U Cannabinoids Screen Assessment & Plan - Assessment and Plan (Free Text) Assessment: * New onset seizure with precipitating factors being hypokalemia, hyponatremia from siadh, hypomagnesimia, meds like tramadol, with prolonged post ictal phase , negative ct unlikely metastatic/embolic disease. * On treatment of MSSA, septic arthritis * Ischemic cardiomyopathy low ef, s/p MVR patient is not on anticoagulation will d/w primary team. * SIADH etio unclear * Low potassium, will contribute to low sodium, but low mag and low k from lasix * Episodes of aflutter noted on the monitor * DM Plan: * Continue abx * Replace K and mag * Tolvaptan to correct hyponatremia * GI/DVT prophylaxis * Possible anticoagulation for aflutter episodes if no contraindication has to be checked with PMD * Resp alkalosis, vt reduced, patient likely could be extubated today. * See orders for detail.
--- NOTE | 2017-08-02 08:43 | RAD ---
HISTORY: Code Stroke COMPARISON: 07/24/2017 FINDINGS: LUNGS: No active pulmonary disease. PLEURA: No significant pleural effusion identified, no pneumothorax apparent. CARDIOVASCULAR: ET tube appropriately positioned, approximately 4.1 cm above the tracheal darell. Right PICC catheter unchanged. Normal heart size. Mitral valve replacement. Sternotomy wires. CABG. OSSEOUS STRUCTURES: No significant abnormalities. VISUALIZED UPPER ABDOMEN: Normal. OTHER FINDINGS: None. IMPRESSION: No acute infiltrate. ET tube appropriately positioned.
[2017-08-02] MEDS ORDERED: Potassium Phosphate 15 MMOLE in Sodium Chloride 0.9% 250 ML IVPB ONE (09:00)
[2017-08-02] MEDS ORDERED: FOSPHENYTOIN IV ONE (09:00)
[2017-08-02] MEDS ORDERED: SODIUM CHLORIDE 0.9% IV ONE (09:00)
--- NOTE | 2017-08-02 09:12 | RAD ---
HISTORY: pt intubated COMPARISON: 08/01/2017 FINDINGS: LUNGS: Opacity at right base partially artifactual due to overlying equipment. No abnormal opacity elsewhere. PLEURA: No significant pleural effusion identified, no pneumothorax apparent. CARDIOVASCULAR: Normal heart size. CABG. ET tube and right PICC catheter unchanged. New nasogastric tube extends to upper abdomen. OSSEOUS STRUCTURES: No significant abnormalities. VISUALIZED UPPER ABDOMEN: Normal. OTHER FINDINGS: None. IMPRESSION: New opacity at right base, partially artifactual. Follow-up advised. New nasogastric tube. Otherwise no change. .
[2017-08-02] MEDS: Lactobacillus Acidophilus 500 MU Cap PO SCH ×2 (09:46→18:47)
[2017-08-02] MEDS ORDERED: Nitroglycerin 0.2 mg/hr Top Patch TD SCH (10:00)
[2017-08-02] MEDS ORDERED: Tolvaptan 15 MG TAB PO SCH (10:00)
[2017-08-02] MEDS ORDERED: Pantoprazole 40 mg EC Tab PO SCH (10:00)
[2017-08-02] MEDS ORDERED: levETIRAcetam 500 MG in Sodium Chloride 0.9% 100 ML IVPB ONE (10:00)
[2017-08-02 10:18] LABS: B-TYPE NATRIURETIC PEPTIDE 44900 pg/mL (0-900)
[2017-08-02] MEDS: Piperacill/Tazo 3.375gm in Dex 3.375 GM/50 ML BAG IVPB SCH ×3 (10:44→22:00)
--- NOTE | 2017-08-02 11:10 | CP.PCM.CON ---
History of Present Illness - History of Present Illness History of Present Illness: PGY 2 consult note for neurology, Dr Cornejo 72 year old female with past medical history of ischemic cardiomyopathy with severe systolic dysfunction, CAD s/p CABG, SAIDH, HTN, RA, left knee septic arthritis with MSSA, dementia, hyponatremia was admitted to hospital after experiencing a witnessed seizure and AMS. Neurology consulted for seizures. Patient was brought in overnight by ambulance after experiencing seizure. Patient was talking 1 hour before episode of seizure prior to arrival. En route , patient was given 2 mg of Ativan. While in the ED, patient had Wendy coma scale of 4 and was given Flumazenil for reversal of Ativan. Patient still remained comatose and was intubated and admitted to ICU. Overnight patient had an episode of atrial flutter which returned spontaneously to sinus rhythm. Pt is intubated and history is obtained from chart. Patient was in rehab facility for IV ABx for septic knee joint (+ for MSSA). Patient had arthroscopic irrigation and debridement of left knee on 07/19/17. Currently ROS unobtainable due to intubation. PMHx: stated above Sx: left knee arthroscopy, CABG 2016 Review of Systems - Review of Systems Systems not reviewed;Unavailable: Altered Mental Status Past Patient History - Infectious Disease Hx of Infectious Diseases: None - Past Medical History & Family History Past Medical History?: Yes - Past Social History Smoking Status: Never Smoked - CARDIAC Hx Atrial Fibrillation: Yes Hx Cardia Arrhythmia: Yes Hx Congestive Heart Failure: Yes Hx Hypercholesterolemia: Yes Hx Hypertension: Yes Hx Pacemaker: No - PULMONARY Hx Chronic Obstructive Pulmonary Disease (COPD): Yes - NEUROLOGICAL Hx Dementia: Yes Hx Seizures: No - HEENT Hx HEENT Problems: No - RENAL Hx Chronic Kidney Disease: No - ENDOCRINE/METABOLIC Hx Endocrine Disorders: Yes Hx Diabetes Mellitus Type 2: Yes - HEMATOLOGICAL/ONCOLOGICAL Hx Anemia: Yes Hx Human Immunodeficiency Virus (HIV): No - INTEGUMENTARY Hx Dermatological Problems: No - MUSCULOSKELETAL/RHEUMATOLOGICAL Hx Arthritis: Yes Hx Osteoporosis: Yes Hx Rheumatoid Arthritis: Yes - GASTROINTESTINAL Hx Gastrointestinal Disorders: Yes Hx Ulcer: Yes Other/Comment: appendectomy history of endoscopies. ventral hernia - GENITOURINARY/GYNECOLOGICAL Hx Sexually Transmitted Disorders: No - PSYCHIATRIC Hx Substance Use: No - SURGICAL HISTORY Hx Appendectomy: Yes Hx Coronary Artery Bypass Graft: Yes Hx Coronary Stent: Yes - ANESTHESIA Hx Anesthesia: Yes Hx Anesthesia Reactions: No Hx Malignant Hyperthermia: No Meds Allergies/Adverse Reactions: Allergies Allergy/AdvReac Type Severity Reaction Status Date / Time No Known Allergies Allergy Verified 08/01/17 19:02 - Medications Medications: Current Medications Albuterol/Ipratropium (Duoneb 3 Mg/0.5 Mg (3 Ml) Ud) 3 ml INH RQ6 [facility] Fosphenytoin Sodium (Cerebyx) 100 mg IV Q8 [facility] Heparin Sodium (Porcine) (Heparin) 5,000 units SC Q12 [facility] Last Admin: 08/02/17 10:41 Dose: 5,000 units Gentamicin Sulfate 70 mg/ (Sodium Chloride) 101.75 mls @ 100 mls/hr IVPB Q24H [facility] Last Admin: 08/01/17 23:46 Dose: 100 mls/hr Propofol (Diprivan) 1,000 mg in 100 mls @ 1.86 mls/hr IV .Q24H PRN; Protocol; 5 MCG/KG/MIN PRN Reason: TITRATE PER MD ORDER Last Titration: 08/02/17 06:00 Dose: 15 mcg/kg/min, 5.58 mls/hr Potassium Phosphate 15 mmole/ (Sodium Chloride) 255 mls @ 42.5 mls/hr IVPB ONCE ONE Stop: 08/02/17 14:59 Last Admin: 08/02/17 10:45 Dose: 42.5 mls/hr Piperacillin Sod/Tazobactam Sod (Zosyn 3.375 Gm Iv Premix) 3.375 gm in 50 mls @ 100 mls/hr IVPB Q6H [facility] Last Admin: 08/02/17 10:44 Dose: 100 mls/hr Lactobacillus Acidophilus (Bacid Acidophilus) 1 cap PO BID [facility] Losartan Potassium (Cozaar) 25 mg PO DAILY [facility] Last Admin: 08/02/17 10:41 Dose: 25 mg Metoprolol Tartrate (Lopressor) 50 mg PO BID [facility] Last Admin: 08/02/17 10:41 Dose: 50 mg Nitroglycerin (Nitro-Dur 0.2 Mg/Hr Patch) 1 patch TD DAILY [facility] Last Admin: 08/02/17 10:41 Dose: 1 patch Pantoprazole Sodium (Protonix Susp) 40 mg PO 0600 [facility] Pneumococcal Polyvalent Vaccine (Pneumovax 23 Vaccine) 0.5 ml SC .ONCE ONE Stop: 08/04/17 10:01 Rifampin (Rifampin Cap) 300 mg PO TID [facility] Rosuvastatin Calcium (Crestor) 2.5 mg PO HS [facility] Tolvaptan (Samsca) 15 mg PO DAILY [facility] Stop: 08/04/17 07:16 Physical Exam - Constitutional Appears: Non-toxic, No Acute Distress - Head Exam Head Exam: ATRAUMATIC - Eye Exam Pupil Exam: PERRL - ENT Exam ENT Exam: Mucous Membranes Moist - Respiratory Exam Respiratory Exam: Clear to Auscultation Bilateral. absent: Accessory Muscle Use , Rhonchi, Wheezes, Respiratory Distress Additional comments: intubated on CPAP - Cardiovascular Exam Cardiovascular Exam: Tachycardia, REGULAR RHYTHM, +S1, +S2. absent: Diastolic murmur, Systolic Murmur - GI/Abdominal Exam GI & Abdominal Exam: Normal Bowel Sounds, Soft. absent: Distended, Firm, Guarding, Rigid, Tenderness - Extremities Exam Extremities exam: Positive for: pedal edema (B/L to knees). Negative for: tenderness Additional comments: left knee surgery scar noted, no erythema or swelling noted on knee - Neurological Exam Neurological exam: Alert, Oriented x3 - Psychiatric Exam Psychiatric exam: Normal Affect, Normal Mood - Skin Skin Exam: Dry, Intact, Normal Color, Warm Results - Vital Signs Recent Vital Signs: Last Vital Signs Temp 99 F 08/02/17 04:00 Pulse 100 H 08/02/17 04:57 Resp 26 H 08/02/17 04:57 BP 141/74 08/02/17 04:57 Pulse Ox 100 08/02/17 04:57 - Labs Result Diagrams: 08/02/17 06:32 08/02/17 06:30 Labs: Laboratory Results - last 24 hr 08/01/17 08/01/17 08/01/17 19:07 19:55 19:55 WBC 10.2 D RBC 3.38 L Hgb 9.8 L Hct 29.7 L MCV 87.7 MCH 29.0 MCHC 33.1 RDW 17.2 H Plt Count 221 MPV 8.5 Neut % (Auto) 79.6 H Lymph % (Auto) 16.8 L [place] % (Auto) 2.8 Eos % (Auto) 0.6 Baso % (Auto) 0.2 Neut # (Auto) 8.1 H Lymph # (Auto) 1.7 [place] # (Auto) 0.3 Eos # (Auto) 0.1 Baso # (Auto) 0.0 PT 14.6 H INR 1.3 APTT 47 H Puncture Site pCO2 pO2 HCO3 ABG pH ABG Total CO2 ABG O2 Saturation ABG Base Excess ABG Hemoglobin ABG Carboxyhemoglobin POC ABG HHb (Measured) ABG Methemoglobin Reji Test A-a O2 Difference Respiratory Index Hgb O2 Saturation Vent Mode Mechanical Rate FiO2 Tidal Volume PEEP Crit Value Called To Crit Value Called By Crit Value Read Back Blood Gas Notified Time Sodium Potassium Chloride Carbon Dioxide Anion Gap BUN Creatinine Est GFR ( Amer) Est GFR (Non-Af Amer) POC Glucose (mg/dL) 221 H Random Glucose Hemoglobin A1c Calcium Phosphorus Magnesium Total Bilirubin AST ALT Alkaline Phosphatase Troponin I NT-Pro-B Natriuret Pep Total Protein Albumin Globulin Albumin/Globulin Ratio Triglycerides Cholesterol LDL Cholesterol Direct HDL Cholesterol Urine Osmolality Ur Random Creatinine Ur Random Sodium Urine Opiates Screen Urine Methadone Screen Ur Barbiturates Screen Ur Phencyclidine Scrn Ur Amphetamines Screen U Benzodiazepines Scrn U Oth Cocaine Metabols U Cannabinoids Screen Influenza Typ A,B (EIA) Blood Type Antibody Screen Antibody Identification 08/01/17 08/01/17 08/01/17 19:55 19:55 21:18 WBC RBC Hgb Hct MCV MCH MCHC RDW Plt Count MPV Neut % (Auto) Lymph % (Auto) [place] % (Auto) Eos % (Auto) Baso % (Auto) Neut # (Auto) Lymph # (Auto) [place] # (Auto) Eos # (Auto) Baso # (Auto) PT INR APTT Puncture Site pCO2 pO2 HCO3 ABG pH ABG Total CO2 ABG O2 Saturation ABG Base Excess ABG Hemoglobin ABG Carboxyhemoglobin POC ABG HHb (Measured) ABG Methemoglobin Reji Test A-a O2 Difference Respiratory Index Hgb O2 Saturation Vent Mode Mechanical Rate FiO2 Tidal Volume PEEP Crit Value Called To Crit Value Called By Crit Value Read Back Blood Gas Notified Time Sodium 121 L Potassium 3.0 L Chloride 83 L Carbon Dioxide 31 H Anion Gap 11 BUN 11 Creatinine 0.6 L Est GFR ( Amer) > 60 Est GFR (Non-Af Amer) > 60 POC Glucose (mg/dL) Random Glucose 205 H Hemoglobin A1c 5.1 Calcium 8.1 L Phosphorus Magnesium Total Bilirubin 0.4 AST 36 D ALT 10 Alkaline Phosphatase 139 H Troponin I 0.0190 NT-Pro-B Natriuret Pep Total Protein 7.3 Albumin 2.6 L Globulin 4.7 H Albumin/Globulin Ratio 0.6 L Triglycerides 94 D Cholesterol 143 LDL Cholesterol Direct 117 HDL Cholesterol 20 L Urine Osmolality Ur Random Creatinine Ur Random Sodium 103 Urine Opiates Screen Positive H Urine Methadone Screen Negative Ur Barbiturates Screen Negative Ur Phencyclidine Scrn Negative Ur Amphetamines Screen Negative U Benzodiazepines Scrn Negative U Oth Cocaine Metabols Negative U Cannabinoids Screen Negative Influenza Typ A,B (EIA) Blood Type Antibody Screen Antibody Identification 08/01/17 08/02/17 08/02/17 22:17 00:46 01:25 WBC RBC Hgb Hct MCV MCH MCHC RDW Plt Count MPV Neut % (Auto) Lymph % (Auto) [place] % (Auto) Eos % (Auto) Baso % (Auto) Neut # (Auto) Lymph # (Auto) [place] # (Auto) Eos # (Auto) Baso # (Auto) PT INR APTT Puncture Site Rra pCO2 38 pO2 402 H HCO3 30.3 H ABG pH 7.51 H ABG Total CO2 31.5 H ABG O2 Saturation 100.9 H ABG Base Excess 6.8 H ABG Hemoglobin 9.9 L ABG Carboxyhemoglobin 1.8 H POC ABG HHb (Measured) -0.9 L ABG Methemoglobin 1.8 Reji Test Pos A-a O2 Difference 264.0 Respiratory Index 0.7 Hgb O2 Saturation 97.3 Vent Mode Prvc Mechanical Rate 12 FiO2 100.0 Tidal Volume 500 PEEP 5 Crit Value Called To Crit Value Called By Crit Value Read Back Blood Gas Notified Time Sodium 123 L Potassium 3.1 L Chloride 82 L Carbon Dioxide 31 H Anion Gap 13 BUN 11 Creatinine 0.6 L Est GFR ( Amer) > 60 Est GFR (Non-Af Amer) > 60 POC Glucose (mg/dL) Random Glucose 155 H Hemoglobin A1c Calcium 8.2 L Phosphorus Magnesium 1.2 L Total Bilirubin 0.5 AST 38 H ALT < 6 L D Alkaline Phosphatase 130 H Troponin I NT-Pro-B Natriuret Pep Total Protein 7.5 Albumin 2.7 L Globulin 4.8 H Albumin/Globulin Ratio 0.6 L Triglycerides Cholesterol LDL Cholesterol Direct HDL Cholesterol Urine Osmolality Ur Random Creatinine Ur Random Sodium Urine Opiates Screen Urine Methadone Screen Ur Barbiturates Screen Ur Phencyclidine Scrn Ur Amphetamines Screen U Benzodiazepines Scrn U Oth Cocaine Metabols U Cannabinoids Screen Influenza Typ A,B (EIA) Blood Type A POSITIVE Antibody Screen Positive Antibody Identification Anti E 08/02/17 08/02/17 08/02/17 01:25 05:14 06:30 WBC RBC Hgb Hct MCV MCH MCHC RDW Plt Count MPV Neut % (Auto) Lymph % (Auto) [place] % (Auto) Eos % (Auto) Baso % (Auto) Neut # (Auto) Lymph # (Auto) [place] # (Auto) Eos # (Auto) Baso # (Auto) PT INR APTT Puncture Site Rr pCO2 23 L pO2 173 H HCO3 31.1 H ABG pH 7.68 H* ABG Total CO2 27.8 ABG O2 Saturation 100.0 H ABG Base Excess 7.9 H ABG Hemoglobin 12.8 ABG Carboxyhemoglobin 1.5 POC ABG HHb (Measured) 0.0 ABG Methemoglobin 1.2 Reji Test Pos A-a O2 Difference 83.0 Respiratory Index 0.5 Hgb O2 Saturation 97.3 Vent Mode Prvc Mechanical Rate 12 FiO2 40.0 Tidal Volume 500 PEEP 5 Crit Value Called To Souleymane rn Crit Value Called By Linnea hub cutter apprentice Crit Value Read Back Y Blood Gas Notified Time 530 Sodium 121 L Potassium 3.6 Chloride 82 L Carbon Dioxide 27 Anion Gap 15 BUN 10 Creatinine 0.6 L Est GFR ( Amer) > 60 Est GFR (Non-Af Amer) > 60 POC Glucose (mg/dL) Random Glucose 108 H Hemoglobin A1c Calcium 8.0 L Phosphorus 2.3 L Magnesium 1.7 Total Bilirubin 0.6 AST 35 ALT < 6 L Alkaline Phosphatase 144 H Troponin I NT-Pro-B Natriuret Pep 59538 H Total Protein 7.9 Albumin 2.8 L Globulin 5.1 H Albumin/Globulin Ratio 0.5 L Triglycerides 116 D Cholesterol 162 LDL Cholesterol Direct 128 HDL Cholesterol 23 L Urine Osmolality 404 Ur Random Creatinine 21.4 Ur Random Sodium 118 Urine Opiates Screen Urine Methadone Screen Ur Barbiturates Screen Ur Phencyclidine Scrn Ur Amphetamines Screen U Benzodiazepines Scrn U Oth Cocaine Metabols U Cannabinoids Screen Influenza Typ A,B (EIA) Blood Type Antibody Screen Antibody Identification 08/02/17 08/02/17 06:32 08:55 WBC 7.0 RBC 3.34 L Hgb 9.6 L Hct 28.6 L MCV 85.6 D MCH 28.9 MCHC 33.7 RDW 16.4 H Plt Count 211 MPV 8.6 Neut % (Auto) 70.9 Lymph % (Auto) 15.1 L [place] % (Auto) 13.7 H Eos % (Auto) 0.0 Baso % (Auto) 0.3 Neut # (Auto) 5.0 Lymph # (Auto) 1.1 [place] # (Auto) 1.0 H Eos # (Auto) 0.0 Baso # (Auto) 0.0 PT INR APTT Puncture Site pCO2 pO2 HCO3 ABG pH ABG Total CO2 ABG O2 Saturation ABG Base Excess ABG Hemoglobin ABG Carboxyhemoglobin POC ABG HHb (Measured) ABG Methemoglobin Reji Test A-a O2 Difference Respiratory Index Hgb O2 Saturation Vent Mode Mechanical Rate FiO2 Tidal Volume PEEP Crit Value Called To Crit Value Called By Crit Value Read Back Blood Gas Notified Time Sodium Potassium Chloride Carbon Dioxide Anion Gap BUN Creatinine Est GFR ( Amer) Est GFR (Non-Af Amer) POC Glucose (mg/dL) Random Glucose Hemoglobin A1c Calcium Phosphorus Magnesium Total Bilirubin AST ALT Alkaline Phosphatase Troponin I NT-Pro-B Natriuret Pep Total Protein Albumin Globulin Albumin/Globulin Ratio Triglycerides Cholesterol LDL Cholesterol Direct HDL Cholesterol Urine Osmolality Ur Random Creatinine Ur Random Sodium Urine Opiates Screen Urine Methadone Screen Ur Barbiturates Screen Ur Phencyclidine Scrn Ur Amphetamines Screen U Benzodiazepines Scrn U Oth Cocaine Metabols U Cannabinoids Screen Influenza Typ A,B (EIA) Negative for flu a/b Blood Type Antibody Screen Antibody Identification Assessment & Plan - Assessment and Plan (Free Text) Assessment: 72 year old male with past medical history of ischemic cardiomyopathy with severe systolic dysfunction, CAD s/p CABG, SAIDH, HTN, RA, left knee septic arthritis with MSSA, dementia, hyponatremia is admitted for seizures and AMS. CT of head on admission was negative for acute changes. CTA of head and neck was also negative. Patient was noted to have Na of 123 on admission. Patient is reexamined with Dr. gill amaya the day. She is somnolent and not moving her right extremities. Patient is responding to painful stimuli Seizures vs. CVA - Patient is not moving right extremities. This can be due to Tod's Palsy vs. CVA. - Will check CT of head - Will have to rule out medication induced seizures vs. hyponatremia induced seizures. Patient was on Gentamicin, Ancef and Rifampin for septic arthiritis at the rehab. Both Ancef and gentamicin can cause seizures. - Will get stat EEG - Will d/c Cerebryx and Keppra (causes hyponatremia). Will start pt on Vimpat 100 mg po q12 - Avoid medications that decrease seizure threshold (zosyn) AMS - 2/2 seizure vs CVA Hyponatremia - Pt is currently on Tolvaptan 15 mg po qd - Continue to monitor. Case will be discussed with attending, Dr. Cornejo - Date & Time Date: 08/02/17 Time: 11:12
[2017-08-02] MEDS ORDERED: Tolvaptan 15 MG TAB PO ONE ×2 (12:45→23:13)
--- NOTE | 2017-08-02 13:09 | CARD ---
APPROVED REPORT EKG Measurement Heart [id number] <Conclusion> Sinus rhythm with occasional premature ventricular complexes Left axis deviation ST & T wave abnormality, consider lateral ischemia Prolonged QT Abnormal ECG
--- NOTE | 2017-08-02 13:11 | CP.CCUPN ---
<Scottie Nogueira - Last Filed: 08/02/17 13:12> CCU Subjective - Physician Review Subjective (Free Text): Patient seen and examined. ROS unobtainable due to intubation. CCU Objective - Vital Signs / Intake & Output Intake and Output (Last 8hrs): Intake & Output 08/01/17 08/02/17 08/02/17 22:59 06:59 14:59 Intake Total 416.82 Output Total 400 Balance 16.82 Weight 151 lb 136 lb 10.986 oz Intake: IV 10.82 Intake, IV Amount 316.0 R PICC line 16.0 Right PICC 300 Other 90 Output: Urine 400 Urethral (Castañeda) 400 Other: Voiding Method Indwelling Catheter - Medications Active Medications: Active Medications Generic Name Dose Route Start Last Admin Trade Name Freq PRN Reason Stop Dose Admin Albuterol/Ipratropium 3 ml 08/02/17 08:00 Duoneb 3 Mg/0.5 Mg (3 Ml) Ud INH RQ6 KODAK Fosphenytoin Sodium 100 mg 08/02/17 14:00 Cerebyx IV Q8 KODAK Heparin Sodium (Porcine) 5,000 units 08/02/17 10:00 08/02/17 10:41 Heparin SC 5,000 units Q12 KODAK Administration Potassium Phosphate 15 mmole/ 255 mls @ 42.5 mls/hr 08/02/17 09:00 08/02/17 10:45 Sodium Chloride IVPB 08/02/17 14:59 42.5 mls/hr ONCE ONE Administration Piperacillin Sod/Tazobactam Sod 3.375 gm in 50 mls @ 100 mls/hr 08/02/17 10: 00 08/02/17 10:44 Zosyn 3.375 Gm Iv Premix IVPB 100 mls/hr Q6H KODAK Administration Lactobacillus Acidophilus 1 cap 08/02/17 10:00 Bacid Acidophilus PO BID KODAK Losartan Potassium 25 mg 08/02/17 10:00 08/02/17 10:41 Cozaar PO 25 mg DAILY KODAK Administration Metoprolol Tartrate 50 mg 08/02/17 10:00 08/02/17 10:41 Lopressor PO 50 mg BID KODAK Administration Nitroglycerin 1 patch 08/02/17 10:00 08/02/17 10:41 Nitro-Dur 0.2 Mg/Hr Patch TD 1 patch DAILY KODAK Administration Pantoprazole Sodium 40 mg 08/03/17 06:00 Protonix Susp PO 0600 [facility] Pneumococcal Polyvalent Vaccine 0.5 ml 08/04/17 10:00 Pneumovax 23 Vaccine SC 08/04/17 10:01 .ONCE ONE Rifampin 300 mg 08/02/17 10:00 Rifampin Cap PO TID [facility] Rosuvastatin Calcium 2.5 mg 08/02/17 22:00 Crestor PO HS KODAK - Patient Studies Lab Studies: Lab Studies 08/02/17 08/02/17 08/02/17 Range/Units 11:45 09:05 08:55 WBC (4.8-10.8) K/uL RBC (3.80-5.20) Mil/uL Hgb (11.0-16.0) g/dL Hct (34.0-47.0) % MCV (81.0-99.0) fL MCH (27.0-31.0) pg MCHC (33.0-37.0) g/dL RDW (11.5-14.5) % Plt Count (130-400) K/uL MPV (7.2-11.7) fL Neut % (Auto) (50.0-75.0) % Lymph % (Auto) (20.0-40.0) % [place] % (Auto) (0.0-10.0) % Eos % (Auto) (0.0-4.0) % Baso % (Auto) (0.0-2.0) % Neut # (Auto) (1.8-7.0) K/uL Lymph # (Auto) (1.0-4.3) K/uL [place] # (Auto) (0.0-0.8) K/uL Eos # (Auto) (0.0-0.7) K/uL Baso # (Auto) (0.0-0.2) K/uL PT (9.7-12.2) SECONDS INR APTT (21-34) SECONDS Puncture Site pCO2 (35-45) mm/Hg pO2 (80-100) mm/Hg HCO3 (21-28) mmol/L ABG pH (7.35-7.45) ABG Total CO2 (22-28) mmol/L ABG O2 Saturation (95-98) % ABG Base Excess (-2.0-3.0) mmol/L ABG Hemoglobin (11.7-17.4) g/dL ABG Carboxyhemoglobin (0.5-1.5) % POC ABG HHb (Measured) (0.0-5.0) % ABG Methemoglobin (0.0-3.0) % Reji Test A-a O2 Difference mm/Hg Respiratory Index Hgb O2 Saturation (95.0-98.0) % Vent Mode Mechanical Rate FiO2 % Tidal Volume PEEP Crit Value Called To Crit Value Called By Crit Value Read Back Blood Gas Notified Time Sodium (132-148) mmol/L Potassium (3.6-5.2) mmol/L Chloride (98-107) mmol/L Carbon Dioxide (22-30) mmol/L Anion Gap (10-20) BUN (7-17) mg/dL Creatinine (0.7-1.2) mg/dL Est GFR ( Amer) Est GFR (Non-Af Amer) POC Glucose (mg/dL) 133 H 108 (65-110) mg/dL Random Glucose (65-105) mg/dL Hemoglobin A1c (4.2-6.5) % Calcium (8.6-10.4) mg/dl Phosphorus (2.5-4.5) mg/dL Magnesium (1.6-2.3) mg/dL Total Bilirubin (0.2-1.3) mg/dL AST (14-36) U/L ALT (9-52) U/L Alkaline Phosphatase (38-126) U/L Troponin I (0.00-0.120) ng/mL NT-Pro-B Natriuret Pep (0-900) pg/mL Total Protein (6.3-8.3) g/dL Albumin (3.5-5.0) g/dL Globulin (2.2-3.9) gm/dL Albumin/Globulin Ratio (1.0-2.1) Triglycerides (0-149) mg/dL Cholesterol (0-199) mg/dL LDL Cholesterol Direct (0-129) mg/dL HDL Cholesterol (30-70) mg/dL Urine Osmolality (300-1000) mosm/kg Ur Random Creatinine mg/dL Ur Random Sodium mmol/L Urine Opiates Screen (NEGATIVE) Urine Methadone Screen (NEGATIVE) Ur Barbiturates Screen (NEGATIVE) Ur Phencyclidine Scrn (NEGATIVE) Ur Amphetamines Screen (NEGATIVE) U Benzodiazepines Scrn (NEGATIVE) U Oth Cocaine Metabols (NEGATIVE) U Cannabinoids Screen (NEGATIVE) Influenza Typ A,B (EIA) Negative for flu a/b (NEGATIVE) Blood Type Antibody Screen Antibody Identification 08/02/17 08/02/17 08/02/17 Range/Units 06:32 06:30 05:14 WBC 7.0 (4.8-10.8) K/uL RBC 3.34 L (3.80-5.20) Mil/uL Hgb 9.6 L (11.0-16.0) g/dL Hct 28.6 L (34.0-47.0) % MCV 85.6 D (81.0-99.0) fL MCH 28.9 (27.0-31.0) pg MCHC 33.7 (33.0-37.0) g/dL RDW 16.4 H (11.5-14.5) % Plt Count 211 (130-400) K/uL MPV 8.6 (7.2-11.7) fL Neut % (Auto) 70.9 (50.0-75.0) % Lymph % (Auto) 15.1 L (20.0-40.0) % [place] % (Auto) 13.7 H (0.0-10.0) % Eos % (Auto) 0.0 (0.0-4.0) % Baso % (Auto) 0.3 (0.0-2.0) % Neut # (Auto) 5.0 (1.8-7.0) K/uL Lymph # (Auto) 1.1 (1.0-4.3) K/uL [place] # (Auto) 1.0 H (0.0-0.8) K/uL Eos # (Auto) 0.0 (0.0-0.7) K/uL Baso # (Auto) 0.0 (0.0-0.2) K/uL PT (9.7-12.2) SECONDS INR APTT (21-34) SECONDS Puncture Site Rr pCO2 23 L (35-45) mm/Hg pO2 173 H (80-100) mm/Hg HCO3 31.1 H (21-28) mmol/L ABG pH 7.68 H* (7.35-7.45) ABG Total CO2 27.8 (22-28) mmol/L ABG O2 Saturation 100.0 H (95-98) % ABG Base Excess 7.9 H (-2.0-3.0) mmol/L ABG Hemoglobin 12.8 (11.7-17.4) g/dL ABG Carboxyhemoglobin 1.5 (0.5-1.5) % POC ABG HHb (Measured) 0.0 (0.0-5.0) % ABG Methemoglobin 1.2 (0.0-3.0) % Reji Test Pos A-a O2 Difference 83.0 mm/Hg Respiratory Index 0.5 Hgb O2 Saturation 97.3 (95.0-98.0) % Vent Mode Prvc Mechanical Rate 12 FiO2 40.0 % Tidal Volume 500 PEEP 5 Crit Value Called To Souleymane rn Crit Value Called By Linnea ground water technician Crit Value Read Back Y Blood Gas Notified Time 530 Sodium 121 L (132-148) mmol/L Potassium 3.6 (3.6-5.2) mmol/L Chloride 82 L (98-107) mmol/L Carbon Dioxide 27 (22-30) mmol/L Anion Gap 15 (10-20) BUN 10 (7-17) mg/dL Creatinine 0.6 L (0.7-1.2) mg/dL Est GFR ( Amer) > 60 Est GFR (Non-Af Amer) > 60 POC Glucose (mg/dL) (65-110) mg/dL Random Glucose 108 H (65-105) mg/dL Hemoglobin A1c (4.2-6.5) % Calcium 8.0 L (8.6-10.4) mg/dl Phosphorus 2.3 L (2.5-4.5) mg/dL Magnesium 1.7 (1.6-2.3) mg/dL Total Bilirubin 0.6 (0.2-1.3) mg/dL AST 35 (14-36) U/L ALT < 6 L (9-52) U/L Alkaline Phosphatase 144 H (38-126) U/L Troponin I (0.00-0.120) ng/mL NT-Pro-B Natriuret Pep 22869 H (0-900) pg/mL Total Protein 7.9 (6.3-8.3) g/dL Albumin 2.8 L (3.5-5.0) g/dL Globulin 5.1 H (2.2-3.9) gm/dL Albumin/Globulin Ratio 0.5 L (1.0-2.1) Triglycerides 116 D (0-149) mg/dL Cholesterol 162 (0-199) mg/dL LDL Cholesterol Direct 128 (0-129) mg/dL HDL Cholesterol 23 L (30-70) mg/dL Urine Osmolality (300-1000) mosm/kg Ur Random Creatinine mg/dL Ur Random Sodium mmol/L Urine Opiates Screen (NEGATIVE) Urine Methadone Screen (NEGATIVE) Ur Barbiturates Screen (NEGATIVE) Ur Phencyclidine Scrn (NEGATIVE) Ur Amphetamines Screen (NEGATIVE) U Benzodiazepines Scrn (NEGATIVE) U Oth Cocaine Metabols (NEGATIVE) U Cannabinoids Screen (NEGATIVE) Influenza Typ A,B (EIA) (NEGATIVE) Blood Type Antibody Screen Antibody Identification 08/02/17 08/02/17 08/02/17 Range/Units 01:25 01:25 00:46 WBC (4.8-10.8) K/uL RBC (3.80-5.20) Mil/uL Hgb (11.0-16.0) g/dL Hct (34.0-47.0) % MCV (81.0-99.0) fL MCH (27.0-31.0) pg MCHC (33.0-37.0) g/dL RDW (11.5-14.5) % Plt Count (130-400) K/uL MPV (7.2-11.7) fL Neut % (Auto) (50.0-75.0) % Lymph % (Auto) (20.0-40.0) % [place] % (Auto) (0.0-10.0) % Eos % (Auto) (0.0-4.0) % Baso % (Auto) (0.0-2.0) % Neut # (Auto) (1.8-7.0) K/uL Lymph # (Auto) (1.0-4.3) K/uL [place] # (Auto) (0.0-0.8) K/uL Eos # (Auto) (0.0-0.7) K/uL Baso # (Auto) (0.0-0.2) K/uL PT (9.7-12.2) SECONDS INR APTT (21-34) SECONDS Puncture Site pCO2 (35-45) mm/Hg pO2 (80-100) mm/Hg HCO3 (21-28) mmol/L ABG pH (7.35-7.45) ABG Total CO2 (22-28) mmol/L ABG O2 Saturation (95-98) % ABG Base Excess (-2.0-3.0) mmol/L ABG Hemoglobin (11.7-17.4) g/dL ABG Carboxyhemoglobin (0.5-1.5) % POC ABG HHb (Measured) (0.0-5.0) % ABG Methemoglobin (0.0-3.0) % Reji Test A-a O2 Difference mm/Hg Respiratory Index Hgb O2 Saturation (95.0-98.0) % Vent Mode Mechanical Rate FiO2 % Tidal Volume PEEP Crit Value Called To Crit Value Called By Crit Value Read Back Blood Gas Notified Time Sodium 123 L (132-148) mmol/L Potassium 3.1 L (3.6-5.2) mmol/L Chloride 82 L (98-107) mmol/L Carbon Dioxide 31 H (22-30) mmol/L Anion Gap 13 (10-20) BUN 11 (7-17) mg/dL Creatinine 0.6 L (0.7-1.2) mg/dL Est GFR ( Amer) > 60 Est GFR (Non-Af Amer) > 60 POC Glucose (mg/dL) (65-110) mg/dL Random Glucose 155 H (65-105) mg/dL Hemoglobin A1c (4.2-6.5) % Calcium 8.2 L (8.6-10.4) mg/dl Phosphorus (2.5-4.5) mg/dL Magnesium 1.2 L (1.6-2.3) mg/dL Total Bilirubin 0.5 (0.2-1.3) mg/dL AST 38 H (14-36) U/L ALT < 6 L D (9-52) U/L Alkaline Phosphatase 130 H (38-126) U/L Troponin I (0.00-0.120) ng/mL NT-Pro-B Natriuret Pep (0-900) pg/mL Total Protein 7.5 (6.3-8.3) g/dL Albumin 2.7 L (3.5-5.0) g/dL Globulin 4.8 H (2.2-3.9) gm/dL Albumin/Globulin Ratio 0.6 L (1.0-2.1) Triglycerides (0-149) mg/dL Cholesterol (0-199) mg/dL LDL Cholesterol Direct (0-129) mg/dL HDL Cholesterol (30-70) mg/dL Urine Osmolality 404 (300-1000) mosm/kg Ur Random Creatinine 21.4 mg/dL Ur Random Sodium 118 mmol/L Urine Opiates Screen (NEGATIVE) Urine Methadone Screen (NEGATIVE) Ur Barbiturates Screen (NEGATIVE) Ur Phencyclidine Scrn (NEGATIVE) Ur Amphetamines Screen (NEGATIVE) U Benzodiazepines Scrn (NEGATIVE) U Oth Cocaine Metabols (NEGATIVE) U Cannabinoids Screen (NEGATIVE) Influenza Typ A,B (EIA) (NEGATIVE) Blood Type A POSITIVE Antibody Screen Positive Antibody Identification Anti E 08/01/17 08/01/17 08/01/17 Range/Units 22:17 21:18 19:55 WBC (4.8-10.8) K/uL RBC (3.80-5.20) Mil/uL Hgb (11.0-16.0) g/dL Hct (34.0-47.0) % MCV (81.0-99.0) fL MCH (27.0-31.0) pg MCHC (33.0-37.0) g/dL RDW (11.5-14.5) % Plt Count (130-400) K/uL MPV (7.2-11.7) fL Neut % (Auto) (50.0-75.0) % Lymph % (Auto) (20.0-40.0) % [place] % (Auto) (0.0-10.0) % Eos % (Auto) (0.0-4.0) % Baso % (Auto) (0.0-2.0) % Neut # (Auto) (1.8-7.0) K/uL Lymph # (Auto) (1.0-4.3) K/uL [place] # (Auto) (0.0-0.8) K/uL Eos # (Auto) (0.0-0.7) K/uL Baso # (Auto) (0.0-0.2) K/uL PT (9.7-12.2) SECONDS INR APTT (21-34) SECONDS Puncture Site Rra pCO2 38 (35-45) mm/Hg pO2 402 H (80-100) mm/Hg HCO3 30.3 H (21-28) mmol/L ABG pH 7.51 H (7.35-7.45) ABG Total CO2 31.5 H (22-28) mmol/L ABG O2 Saturation 100.9 H (95-98) % ABG Base Excess 6.8 H (-2.0-3.0) mmol/L ABG Hemoglobin 9.9 L (11.7-17.4) g/dL ABG Carboxyhemoglobin 1.8 H (0.5-1.5) % POC ABG HHb (Measured) -0.9 L (0.0-5.0) % ABG Methemoglobin 1.8 (0.0-3.0) % Reji Test Pos A-a O2 Difference 264.0 mm/Hg Respiratory Index 0.7 Hgb O2 Saturation 97.3 (95.0-98.0) % Vent Mode Prvc Mechanical Rate 12 FiO2 100.0 % Tidal Volume 500 PEEP 5 Crit Value Called To Crit Value Called By Crit Value Read Back Blood Gas Notified Time Sodium (132-148) mmol/L Potassium (3.6-5.2) mmol/L Chloride (98-107) mmol/L Carbon Dioxide (22-30) mmol/L Anion Gap (10-20) BUN (7-17) mg/dL Creatinine (0.7-1.2) mg/dL Est GFR ( Amer) Est GFR (Non-Af Amer) POC Glucose (mg/dL) (65-110) mg/dL Random Glucose (65-105) mg/dL Hemoglobin A1c 5.1 (4.2-6.5) % Calcium (8.6-10.4) mg/dl Phosphorus (2.5-4.5) mg/dL Magnesium (1.6-2.3) mg/dL Total Bilirubin (0.2-1.3) mg/dL AST (14-36) U/L ALT (9-52) U/L Alkaline Phosphatase (38-126) U/L Troponin I (0.00-0.120) ng/mL NT-Pro-B Natriuret Pep (0-900) pg/mL Total Protein (6.3-8.3) g/dL Albumin (3.5-5.0) g/dL Globulin (2.2-3.9) gm/dL Albumin/Globulin Ratio (1.0-2.1) Triglycerides (0-149) mg/dL Cholesterol (0-199) mg/dL LDL Cholesterol Direct (0-129) mg/dL HDL Cholesterol (30-70) mg/dL Urine Osmolality (300-1000) mosm/kg Ur Random Creatinine mg/dL Ur Random Sodium 103 mmol/L Urine Opiates Screen Positive H (NEGATIVE) Urine Methadone Screen Negative (NEGATIVE) Ur Barbiturates Screen Negative (NEGATIVE) Ur Phencyclidine Scrn Negative (NEGATIVE) Ur Amphetamines Screen Negative (NEGATIVE) U Benzodiazepines Scrn Negative (NEGATIVE) U Oth Cocaine Metabols Negative (NEGATIVE) U Cannabinoids Screen Negative (NEGATIVE) Influenza Typ A,B (EIA) (NEGATIVE) Blood Type Antibody Screen Antibody Identification 08/01/17 08/01/17 08/01/17 Range/Units 19:55 19:55 19:55 WBC 10.2 D (4.8-10.8) K/uL RBC 3.38 L (3.80-5.20) Mil/uL Hgb 9.8 L (11.0-16.0) g/dL Hct 29.7 L (34.0-47.0) % MCV 87.7 (81.0-99.0) fL MCH 29.0 (27.0-31.0) pg MCHC 33.1 (33.0-37.0) g/dL RDW 17.2 H (11.5-14.5) % Plt Count 221 (130-400) K/uL MPV 8.5 (7.2-11.7) fL Neut % (Auto) 79.6 H (50.0-75.0) % Lymph % (Auto) 16.8 L (20.0-40.0) % [place] % (Auto) 2.8 (0.0-10.0) % Eos % (Auto) 0.6 (0.0-4.0) % Baso % (Auto) 0.2 (0.0-2.0) % Neut # (Auto) 8.1 H (1.8-7.0) K/uL Lymph # (Auto) 1.7 (1.0-4.3) K/uL [place] # (Auto) 0.3 (0.0-0.8) K/uL Eos # (Auto) 0.1 (0.0-0.7) K/uL Baso # (Auto) 0.0 (0.0-0.2) K/uL PT 14.6 H (9.7-12.2) SECONDS INR 1.3 APTT 47 H (21-34) SECONDS Puncture Site pCO2 (35-45) mm/Hg pO2 (80-100) mm/Hg HCO3 (21-28) mmol/L ABG pH (7.35-7.45) ABG Total CO2 (22-28) mmol/L ABG O2 Saturation (95-98) % ABG Base Excess (-2.0-3.0) mmol/L ABG Hemoglobin (11.7-17.4) g/dL ABG Carboxyhemoglobin (0.5-1.5) % POC ABG HHb (Measured) (0.0-5.0) % ABG Methemoglobin (0.0-3.0) % Reji Test A-a O2 Difference mm/Hg Respiratory Index Hgb O2 Saturation (95.0-98.0) % Vent Mode Mechanical Rate FiO2 % Tidal Volume PEEP Crit Value Called To Crit Value Called By Crit Value Read Back Blood Gas Notified Time Sodium 121 L (132-148) mmol/L Potassium 3.0 L (3.6-5.2) mmol/L Chloride 83 L (98-107) mmol/L Carbon Dioxide 31 H (22-30) mmol/L Anion Gap 11 (10-20) BUN 11 (7-17) mg/dL Creatinine 0.6 L (0.7-1.2) mg/dL Est GFR ( Amer) > 60 Est GFR (Non-Af Amer) > 60 POC Glucose (mg/dL) (65-110) mg/dL Random Glucose 205 H (65-105) mg/dL Hemoglobin A1c (4.2-6.5) % Calcium 8.1 L (8.6-10.4) mg/dl Phosphorus (2.5-4.5) mg/dL Magnesium (1.6-2.3) mg/dL Total Bilirubin 0.4 (0.2-1.3) mg/dL AST 36 D (14-36) U/L ALT 10 (9-52) U/L Alkaline Phosphatase 139 H (38-126) U/L Troponin I 0.0190 (0.00-0.120) ng/mL NT-Pro-B Natriuret Pep (0-900) pg/mL Total Protein 7.3 (6.3-8.3) g/dL Albumin 2.6 L (3.5-5.0) g/dL Globulin 4.7 H (2.2-3.9) gm/dL Albumin/Globulin Ratio 0.6 L (1.0-2.1) Triglycerides 94 D (0-149) mg/dL Cholesterol 143 (0-199) mg/dL LDL Cholesterol Direct 117 (0-129) mg/dL HDL Cholesterol 20 L (30-70) mg/dL Urine Osmolality (300-1000) mosm/kg Ur Random Creatinine mg/dL Ur Random Sodium mmol/L Urine Opiates Screen (NEGATIVE) Urine Methadone Screen (NEGATIVE) Ur Barbiturates Screen (NEGATIVE) Ur Phencyclidine Scrn (NEGATIVE) Ur Amphetamines Screen (NEGATIVE) U Benzodiazepines Scrn (NEGATIVE) U Oth Cocaine Metabols (NEGATIVE) U Cannabinoids Screen (NEGATIVE) Influenza Typ A,B (EIA) (NEGATIVE) Blood Type Antibody Screen Antibody Identification 08/01/17 Range/Units 19:07 WBC (4.8-10.8) K/uL RBC (3.80-5.20) Mil/uL Hgb (11.0-16.0) g/dL Hct (34.0-47.0) % MCV (81.0-99.0) fL MCH (27.0-31.0) pg MCHC (33.0-37.0) g/dL RDW (11.5-14.5) % Plt Count (130-400) K/uL MPV (7.2-11.7) fL Neut % (Auto) (50.0-75.0) % Lymph % (Auto) (20.0-40.0) % [place] % (Auto) (0.0-10.0) % Eos % (Auto) (0.0-4.0) % Baso % (Auto) (0.0-2.0) % Neut # (Auto) (1.8-7.0) K/uL Lymph # (Auto) (1.0-4.3) K/uL [place] # (Auto) (0.0-0.8) K/uL Eos # (Auto) (0.0-0.7) K/uL Baso # (Auto) (0.0-0.2) K/uL PT (9.7-12.2) SECONDS INR APTT (21-34) SECONDS Puncture Site pCO2 (35-45) mm/Hg pO2 (80-100) mm/Hg HCO3 (21-28) mmol/L ABG pH (7.35-7.45) ABG Total CO2 (22-28) mmol/L ABG O2 Saturation (95-98) % ABG Base Excess (-2.0-3.0) mmol/L ABG Hemoglobin (11.7-17.4) g/dL ABG Carboxyhemoglobin (0.5-1.5) % POC ABG HHb (Measured) (0.0-5.0) % ABG Methemoglobin (0.0-3.0) % Reji Test A-a O2 Difference mm/Hg Respiratory Index Hgb O2 Saturation (95.0-98.0) % Vent Mode Mechanical Rate FiO2 % Tidal Volume PEEP Crit Value Called To Crit Value Called By Crit Value Read Back Blood Gas Notified Time Sodium (132-148) mmol/L Potassium (3.6-5.2) mmol/L Chloride (98-107) mmol/L Carbon Dioxide (22-30) mmol/L Anion Gap (10-20) BUN (7-17) mg/dL Creatinine (0.7-1.2) mg/dL Est GFR ( Amer) Est GFR (Non-Af Amer) POC Glucose (mg/dL) 221 H (65-110) mg/dL Random Glucose (65-105) mg/dL Hemoglobin A1c (4.2-6.5) % Calcium (8.6-10.4) mg/dl Phosphorus (2.5-4.5) mg/dL Magnesium (1.6-2.3) mg/dL Total Bilirubin (0.2-1.3) mg/dL AST (14-36) U/L ALT (9-52) U/L Alkaline Phosphatase (38-126) U/L Troponin I (0.00-0.120) ng/mL NT-Pro-B Natriuret Pep (0-900) pg/mL Total Protein (6.3-8.3) g/dL Albumin (3.5-5.0) g/dL Globulin (2.2-3.9) gm/dL Albumin/Globulin Ratio (1.0-2.1) Triglycerides (0-149) mg/dL Cholesterol (0-199) mg/dL LDL Cholesterol Direct (0-129) mg/dL HDL Cholesterol (30-70) mg/dL Urine Osmolality (300-1000) mosm/kg Ur Random Creatinine mg/dL Ur Random Sodium mmol/L Urine Opiates Screen (NEGATIVE) Urine Methadone Screen (NEGATIVE) Ur Barbiturates Screen (NEGATIVE) Ur Phencyclidine Scrn (NEGATIVE) Ur Amphetamines Screen (NEGATIVE) U Benzodiazepines Scrn (NEGATIVE) U Oth Cocaine Metabols (NEGATIVE) U Cannabinoids Screen (NEGATIVE) Influenza Typ A,B (EIA) (NEGATIVE) Blood Type Antibody Screen Antibody Identification Laboratory Results - last 24 hr 08/01/17 08/01/17 08/01/17 19:07 19:55 19:55 WBC 10.2 D RBC 3.38 L Hgb 9.8 L Hct 29.7 L MCV 87.7 MCH 29.0 MCHC 33.1 RDW 17.2 H Plt Count 221 MPV 8.5 Neut % (Auto) 79.6 H Lymph % (Auto) 16.8 L [place] % (Auto) 2.8 Eos % (Auto) 0.6 Baso % (Auto) 0.2 Neut # (Auto) 8.1 H Lymph # (Auto) 1.7 [place] # (Auto) 0.3 Eos # (Auto) 0.1 Baso # (Auto) 0.0 PT 14.6 H INR 1.3 APTT 47 H Puncture Site pCO2 pO2 HCO3 ABG pH ABG Total CO2 ABG O2 Saturation ABG Base Excess ABG Hemoglobin ABG Carboxyhemoglobin POC ABG HHb (Measured) ABG Methemoglobin Reji Test A-a O2 Difference Respiratory Index Hgb O2 Saturation Vent Mode Mechanical Rate FiO2 Tidal Volume PEEP Crit Value Called To Crit Value Called By Crit Value Read Back Blood Gas Notified Time Sodium Potassium Chloride Carbon Dioxide Anion Gap BUN Creatinine Est GFR ( Amer) Est GFR (Non-Af Amer) POC Glucose (mg/dL) 221 H Random Glucose Hemoglobin A1c Calcium Phosphorus Magnesium Total Bilirubin AST ALT Alkaline Phosphatase Troponin I NT-Pro-B Natriuret Pep Total Protein Albumin Globulin Albumin/Globulin Ratio Triglycerides Cholesterol LDL Cholesterol Direct HDL Cholesterol Urine Osmolality Ur Random Creatinine Ur Random Sodium Urine Opiates Screen Urine Methadone Screen Ur Barbiturates Screen Ur Phencyclidine Scrn Ur Amphetamines Screen U Benzodiazepines Scrn U Oth Cocaine Metabols U Cannabinoids Screen Influenza Typ A,B (EIA) Blood Type Antibody Screen Antibody Identification 08/01/17 08/01/17 08/01/17 19:55 19:55 21:18 WBC RBC Hgb Hct MCV MCH MCHC RDW Plt Count MPV Neut % (Auto) Lymph % (Auto) [place] % (Auto) Eos % (Auto) Baso % (Auto) Neut # (Auto) Lymph # (Auto) [place] # (Auto) Eos # (Auto) Baso # (Auto) PT INR APTT Puncture Site pCO2 pO2 HCO3 ABG pH ABG Total CO2 ABG O2 Saturation ABG Base Excess ABG Hemoglobin ABG Carboxyhemoglobin POC ABG HHb (Measured) ABG Methemoglobin Reji Test A-a O2 Difference Respiratory Index Hgb O2 Saturation Vent Mode Mechanical Rate FiO2 Tidal Volume PEEP Crit Value Called To Crit Value Called By Crit Value Read Back Blood Gas Notified Time Sodium 121 L Potassium 3.0 L Chloride 83 L Carbon Dioxide 31 H Anion Gap 11 BUN 11 Creatinine 0.6 L Est GFR ( Amer) > 60 Est GFR (Non-Af Amer) > 60 POC Glucose (mg/dL) Random Glucose 205 H Hemoglobin A1c 5.1 Calcium 8.1 L Phosphorus Magnesium Total Bilirubin 0.4 AST 36 D ALT 10 Alkaline Phosphatase 139 H Troponin I 0.0190 NT-Pro-B Natriuret Pep Total Protein 7.3 Albumin 2.6 L Globulin 4.7 H Albumin/Globulin Ratio 0.6 L Triglycerides 94 D Cholesterol 143 LDL Cholesterol Direct 117 HDL Cholesterol 20 L Urine Osmolality Ur Random Creatinine Ur Random Sodium 103 Urine Opiates Screen Positive H Urine Methadone Screen Negative Ur Barbiturates Screen Negative Ur Phencyclidine Scrn Negative Ur Amphetamines Screen Negative U Benzodiazepines Scrn Negative U Oth Cocaine Metabols Negative U Cannabinoids Screen Negative Influenza Typ A,B (EIA) Blood Type Antibody Screen Antibody Identification 08/01/17 08/02/17 08/02/17 22:17 00:46 01:25 WBC RBC Hgb Hct MCV MCH MCHC RDW Plt Count MPV Neut % (Auto) Lymph % (Auto) [place] % (Auto) Eos % (Auto) Baso % (Auto) Neut # (Auto) Lymph # (Auto) [place] # (Auto) Eos # (Auto) Baso # (Auto) PT INR APTT Puncture Site Rra pCO2 38 pO2 402 H HCO3 30.3 H ABG pH 7.51 H ABG Total CO2 31.5 H ABG O2 Saturation 100.9 H ABG Base Excess 6.8 H ABG Hemoglobin 9.9 L ABG Carboxyhemoglobin 1.8 H POC ABG HHb (Measured) -0.9 L ABG Methemoglobin 1.8 Reji Test Pos A-a O2 Difference 264.0 Respiratory Index 0.7 Hgb O2 Saturation 97.3 Vent Mode Prvc Mechanical Rate 12 FiO2 100.0 Tidal Volume 500 PEEP 5 Crit Value Called To Crit Value Called By Crit Value Read Back Blood Gas Notified Time Sodium 123 L Potassium 3.1 L Chloride 82 L Carbon Dioxide 31 H Anion Gap 13 BUN 11 Creatinine 0.6 L Est GFR ( Amer) > 60 Est GFR (Non-Af Amer) > 60 POC Glucose (mg/dL) Random Glucose 155 H Hemoglobin A1c Calcium 8.2 L Phosphorus Magnesium 1.2 L Total Bilirubin 0.5 AST 38 H ALT < 6 L D Alkaline Phosphatase 130 H Troponin I NT-Pro-B Natriuret Pep Total Protein 7.5 Albumin 2.7 L Globulin 4.8 H Albumin/Globulin Ratio 0.6 L Triglycerides Cholesterol LDL Cholesterol Direct HDL Cholesterol Urine Osmolality Ur Random Creatinine Ur Random Sodium Urine Opiates Screen Urine Methadone Screen Ur Barbiturates Screen Ur Phencyclidine Scrn Ur Amphetamines Screen U Benzodiazepines Scrn U Oth Cocaine Metabols U Cannabinoids Screen Influenza Typ A,B (EIA) Blood Type A POSITIVE Antibody Screen Positive Antibody Identification Anti E 08/02/17 08/02/17 08/02/17 01:25 05:14 06:30 WBC RBC Hgb Hct MCV MCH MCHC RDW Plt Count MPV Neut % (Auto) Lymph % (Auto) [place] % (Auto) Eos % (Auto) Baso % (Auto) Neut # (Auto) Lymph # (Auto) [place] # (Auto) Eos # (Auto) Baso # (Auto) PT INR APTT Puncture Site Rr pCO2 23 L pO2 173 H HCO3 31.1 H ABG pH 7.68 H* ABG Total CO2 27.8 ABG O2 Saturation 100.0 H ABG Base Excess 7.9 H ABG Hemoglobin 12.8 ABG Carboxyhemoglobin 1.5 POC ABG HHb (Measured) 0.0 ABG Methemoglobin 1.2 Reji Test Pos A-a O2 Difference 83.0 Respiratory Index 0.5 Hgb O2 Saturation 97.3 Vent Mode Prvc Mechanical Rate 12 FiO2 40.0 Tidal Volume 500 PEEP 5 Crit Value Called To Souleymane rn Crit Value Called By Linnea ground water technician Crit Value Read Back Y Blood Gas Notified Time 530 Sodium 121 L Potassium 3.6 Chloride 82 L Carbon Dioxide 27 Anion Gap 15 BUN 10 Creatinine 0.6 L Est GFR ( Amer) > 60 Est GFR (Non-Af Amer) > 60 POC Glucose (mg/dL) Random Glucose 108 H Hemoglobin A1c Calcium 8.0 L Phosphorus 2.3 L Magnesium 1.7 Total Bilirubin 0.6 AST 35 ALT < 6 L Alkaline Phosphatase 144 H Troponin I NT-Pro-B Natriuret Pep 22397 H Total Protein 7.9 Albumin 2.8 L Globulin 5.1 H Albumin/Globulin Ratio 0.5 L Triglycerides 116 D Cholesterol 162 LDL Cholesterol Direct 128 HDL Cholesterol 23 L Urine Osmolality 404 Ur Random Creatinine 21.4 Ur Random Sodium 118 Urine Opiates Screen Urine Methadone Screen Ur Barbiturates Screen Ur Phencyclidine Scrn Ur Amphetamines Screen U Benzodiazepines Scrn U Oth Cocaine Metabols U Cannabinoids Screen Influenza Typ A,B (EIA) Blood Type Antibody Screen Antibody Identification 08/02/17 08/02/17 08/02/17 06:32 08:55 09:05 WBC 7.0 RBC 3.34 L Hgb 9.6 L Hct 28.6 L MCV 85.6 D MCH 28.9 MCHC 33.7 RDW 16.4 H Plt Count 211 MPV 8.6 Neut % (Auto) 70.9 Lymph % (Auto) 15.1 L [place] % (Auto) 13.7 H Eos % (Auto) 0.0 Baso % (Auto) 0.3 Neut # (Auto) 5.0 Lymph # (Auto) 1.1 [place] # (Auto) 1.0 H Eos # (Auto) 0.0 Baso # (Auto) 0.0 PT INR APTT Puncture Site pCO2 pO2 HCO3 ABG pH ABG Total CO2 ABG O2 Saturation ABG Base Excess ABG Hemoglobin ABG Carboxyhemoglobin POC ABG HHb (Measured) ABG Methemoglobin Reji Test A-a O2 Difference Respiratory Index Hgb O2 Saturation Vent Mode Mechanical Rate FiO2 Tidal Volume PEEP Crit Value Called To Crit Value Called By Crit Value Read Back Blood Gas Notified Time Sodium Potassium Chloride Carbon Dioxide Anion Gap BUN Creatinine Est GFR ( Amer) Est GFR (Non-Af Amer) POC Glucose (mg/dL) 108 Random Glucose Hemoglobin A1c Calcium Phosphorus Magnesium Total Bilirubin AST ALT Alkaline Phosphatase Troponin I NT-Pro-B Natriuret Pep Total Protein Albumin Globulin Albumin/Globulin Ratio Triglycerides Cholesterol LDL Cholesterol Direct HDL Cholesterol Urine Osmolality Ur Random Creatinine Ur Random Sodium Urine Opiates Screen Urine Methadone Screen Ur Barbiturates Screen Ur Phencyclidine Scrn Ur Amphetamines Screen U Benzodiazepines Scrn U Oth Cocaine Metabols U Cannabinoids Screen Influenza Typ A,B (EIA) Negative for flu a/b Blood Type Antibody Screen Antibody Identification 08/02/17 11:45 WBC RBC Hgb Hct MCV MCH MCHC RDW Plt Count MPV Neut % (Auto) Lymph % (Auto) [place] % (Auto) Eos % (Auto) Baso % (Auto) Neut # (Auto) Lymph # (Auto) [place] # (Auto) Eos # (Auto) Baso # (Auto) PT INR APTT Puncture Site pCO2 pO2 HCO3 ABG pH ABG Total CO2 ABG O2 Saturation ABG Base Excess ABG Hemoglobin ABG Carboxyhemoglobin POC ABG HHb (Measured) ABG Methemoglobin Reji Test A-a O2 Difference Respiratory Index Hgb O2 Saturation Vent Mode Mechanical Rate FiO2 Tidal Volume PEEP Crit Value Called To Crit Value Called By Crit Value Read Back Blood Gas Notified Time Sodium Potassium Chloride Carbon Dioxide Anion Gap BUN Creatinine Est GFR ( Amer) Est GFR (Non-Af Amer) POC Glucose (mg/dL) 133 H Random Glucose Hemoglobin A1c Calcium Phosphorus Magnesium Total Bilirubin AST ALT Alkaline Phosphatase Troponin I NT-Pro-B Natriuret Pep Total Protein Albumin Globulin Albumin/Globulin Ratio Triglycerides Cholesterol LDL Cholesterol Direct HDL Cholesterol Urine Osmolality Ur Random Creatinine Ur Random Sodium Urine Opiates Screen Urine Methadone Screen Ur Barbiturates Screen Ur Phencyclidine Scrn Ur Amphetamines Screen U Benzodiazepines Scrn U Oth Cocaine Metabols U Cannabinoids Screen Influenza Typ A,B (EIA) Blood Type Antibody Screen Antibody Identification EKG/Cardiology Studies: Cardiology / EKG Studies 08/01/17 19:12 ELECTROCARDIOGRAM Stat Comment: Mode Of Transportation: BED Reason For Exam: code stroke 08/02/17 03:19 EKG [ELECTROCARDIOGRAM] Stat Comment: Mode Of Transportation: Reason For Exam: arrhythmia Fingerstick Blood Sugar Results: 221 - Procedures Procedures (Free Text): - Constitutional Appears: Non-toxic, No Acute Distress - Head Exam Head Exam: ATRAUMATIC - Eye Exam Pupil Exam: PERRL - ENT Exam ENT Exam: Mucous Membranes Moist - Respiratory Exam Respiratory Exam: Clear to Auscultation Bilateral. absent: Accessory Muscle Use , Rhonchi, Wheezes, Respiratory Distress Additional comments: intubated on CPAP - Cardiovascular Exam Cardiovascular Exam: Tachycardia, REGULAR RHYTHM, +S1, +S2. absent: Diastolic murmur, Systolic Murmur - GI/Abdominal Exam GI & Abdominal Exam: Normal Bowel Sounds, Soft. absent: Distended, Firm, Guarding, Rigid, Tenderness - Extremities Exam Extremities exam: Positive for: pedal edema (B/L to knees). Negative for: tenderness Additional comments: left knee surgery scar noted, no erythema or swelling noted on knee - Neurological Exam Neurological exam: Alert, Oriented x3 - Psychiatric Exam Psychiatric exam: Normal Affect, Normal Mood - Skin Skin Exam: Dry, Intact, Normal Color, Warm Review of Systems - Review of Systems Systems not reviewed;Unavailable: Intubated Assessment/Plan - Assessment and Plan (Free Text) Assessment: Pt is a 72F here from rehab facility with new onset seizures: Neuro: New onset serizure, hx of dementia Neurologist Dr Cornejo on board Keppra 1gm loading dose Fosphenytoin 100mg IV Q8 * F/U phenytoin level decrease diprivan CT Head negative for acute changes CTA Head/Neck shows no flow limiting cervical carotid stenosis or vessel occlusion, also patent vertebral arteries Flumazenil given in ED for reversal of Ativan ID: MSSA Septic Arthirtis Stop Gentamicin Zosyn 3.375g IV QID rifampin 300mg PO TID s/p arthroscopic irrigation and debridement of left knee on 07/19/17 NEGATIVE for flu Endo: SIADH (etiology unclear), DM Lasix 20mg IVP x1 dose tolvaptan 15mg PO x1 dose * Nephrology consult, Dr Eddy, to order tolvaptan Cardio: Ischemic cardiomyopathy with low EF, HTN, epidoses of AFlutter noted on monitor Probnp [id number] Cozaar 25mg PO QD cardizem 10mg IVP Lopressor 50mg PO BID Crestor 2.5mg PO HS Nitroglycerin 1 patch TD QD Follow-up echo w/ bubble study Lipid Profile NORMAL Pulm: Intubation, hx of COPD duoneb 3ml INH QID CPAP trials ordered Chest PT Electrolytes: hypokalemia Replete with Kdur 15mEq Ppx: Heparin 5,000 units protonix 40mg oral suspension QD <Iraj Stokes M - Last Filed: 08/02/17 17:07> CCU Subjective - Physician Review Critical Care Time Spent (in minutes): 40 CCU Objective - Vital Signs / Intake & Output Intake and Output (Last 8hrs): Intake & Output 08/02/17 08/02/17 08/02/17 06:59 14:59 22:59 Intake Total 416.82 Output Total 400 Balance 16.82 Weight 136 lb 10.986 oz Intake: IV 10.82 Intake, IV Amount 316.0 R PICC line 16.0 Right PICC 300 Other 90 Output: Urine 400 Urethral (Castañeda) 400 Other: Voiding Method Indwelling Catheter - Medications Active Medications: Active Medications Generic Name Dose Route Start Last Admin Trade Name Freq PRN Reason Stop Dose Admin Albuterol/Ipratropium 3 ml 08/02/17 08:00 08/02/17 13:29 Duoneb 3 Mg/0.5 Mg (3 Ml) Ud INH 3 ml RQ6 KODAK Administration Heparin Sodium (Porcine) 5,000 units 08/02/17 10:00 08/02/17 10:41 Heparin SC 5,000 units Q12 KODAK Administration Piperacillin Sod/Tazobactam Sod 3.375 gm in 50 mls @ 100 mls/hr 08/02/17 10: 00 08/02/17 10:44 Zosyn 3.375 Gm Iv Premix IVPB 100 mls/hr Q6H KODAK Administration Lacosamide 100 mg 08/02/17 18:00 Vimpat PO BID KODAK Lactobacillus Acidophilus 1 cap 08/02/17 10:00 Bacid Acidophilus PO BID KODAK Losartan Potassium 25 mg 08/02/17 10:00 08/02/17 10:41 Cozaar PO 25 mg DAILY KODAK Administration Metoprolol Tartrate 50 mg 08/02/17 10:00 08/02/17 10:41 Lopressor PO 50 mg BID KODAK Administration Nitroglycerin 1 patch 08/02/17 10:00 08/02/17 10:41 Nitro-Dur 0.2 Mg/Hr Patch TD 1 patch DAILY KODAK Administration Pantoprazole Sodium 40 mg 08/03/17 06:00 Protonix Susp PO 0600 [facility] Pneumococcal Polyvalent Vaccine 0.5 ml 08/04/17 10:00 Pneumovax 23 Vaccine SC 08/04/17 10:01 .ONCE ONE Rifampin 300 mg 08/02/17 10:00 Rifampin Cap PO TID [facility] Rosuvastatin Calcium 2.5 mg 08/02/17 22:00 Crestor PO HS [facility] - Patient Studies Lab Studies: Lab Studies 08/02/17 08/02/17 08/02/17 Range/Units 11:45 09:05 08:55 WBC (4.8-10.8) K/uL RBC (3.80-5.20) Mil/uL Hgb (11.0-16.0) g/dL Hct (34.0-47.0) % MCV (81.0-99.0) fL MCH (27.0-31.0) pg MCHC (33.0-37.0) g/dL RDW (11.5-14.5) % Plt Count (130-400) K/uL MPV (7.2-11.7) fL Neut % (Auto) (50.0-75.0) % Lymph % (Auto) (20.0-40.0) % [place] % (Auto) (0.0-10.0) % Eos % (Auto) (0.0-4.0) % Baso % (Auto) (0.0-2.0) % Neut # (Auto) (1.8-7.0) K/uL Lymph # (Auto) (1.0-4.3) K/uL [place] # (Auto) (0.0-0.8) K/uL Eos # (Auto) (0.0-0.7) K/uL Baso # (Auto) (0.0-0.2) K/uL PT (9.7-12.2) SECONDS INR APTT (21-34) SECONDS Puncture Site pCO2 (35-45) mm/Hg pO2 (80-100) mm/Hg HCO3 (21-28) mmol/L ABG pH (7.35-7.45) ABG Total CO2 (22-28) mmol/L ABG O2 Saturation (95-98) % ABG Base Excess (-2.0-3.0) mmol/L ABG Hemoglobin (11.7-17.4) g/dL ABG Carboxyhemoglobin (0.5-1.5) % POC ABG HHb (Measured) (0.0-5.0) % ABG Methemoglobin (0.0-3.0) % Reji Test A-a O2 Difference mm/Hg Respiratory Index Hgb O2 Saturation (95.0-98.0) % Vent Mode Mechanical Rate FiO2 % Tidal Volume PEEP Crit Value Called To Crit Value Called By Crit Value Read Back Blood Gas Notified Time Sodium (132-148) mmol/L Potassium (3.6-5.2) mmol/L Chloride (98-107) mmol/L Carbon Dioxide (22-30) mmol/L Anion Gap (10-20) BUN (7-17) mg/dL Creatinine (0.7-1.2) mg/dL Est GFR ( Amer) Est GFR (Non-Af Amer) POC Glucose (mg/dL) 133 H 108 (65-110) mg/dL Random Glucose (65-105) mg/dL Hemoglobin A1c (4.2-6.5) % Calcium (8.6-10.4) mg/dl Phosphorus (2.5-4.5) mg/dL Magnesium (1.6-2.3) mg/dL Total Bilirubin (0.2-1.3) mg/dL AST (14-36) U/L ALT (9-52) U/L Alkaline Phosphatase (38-126) U/L Troponin I (0.00-0.120) ng/mL NT-Pro-B Natriuret Pep (0-900) pg/mL Total Protein (6.3-8.3) g/dL Albumin (3.5-5.0) g/dL Globulin (2.2-3.9) gm/dL Albumin/Globulin Ratio (1.0-2.1) Triglycerides (0-149) mg/dL Cholesterol (0-199) mg/dL LDL Cholesterol Direct (0-129) mg/dL HDL Cholesterol (30-70) mg/dL Urine Osmolality (300-1000) mosm/kg Ur Random Creatinine mg/dL Ur Random Sodium mmol/L Urine Opiates Screen (NEGATIVE) Urine Methadone Screen (NEGATIVE) Ur Barbiturates Screen (NEGATIVE) Ur Phencyclidine Scrn (NEGATIVE) Ur Amphetamines Screen (NEGATIVE) U Benzodiazepines Scrn (NEGATIVE) U Oth Cocaine Metabols (NEGATIVE) U Cannabinoids Screen (NEGATIVE) Influenza Typ A,B (EIA) Negative for flu a/b (NEGATIVE) Blood Type Antibody Screen Antibody Identification 08/02/17 08/02/17 08/02/17 Range/Units 06:32 06:30 05:14 WBC 7.0 (4.8-10.8) K/uL RBC 3.34 L (3.80-5.20) Mil/uL Hgb 9.6 L (11.0-16.0) g/dL Hct 28.6 L (34.0-47.0) % MCV 85.6 D (81.0-99.0) fL MCH 28.9 (27.0-31.0) pg MCHC 33.7 (33.0-37.0) g/dL RDW 16.4 H (11.5-14.5) % Plt Count 211 (130-400) K/uL MPV 8.6 (7.2-11.7) fL Neut % (Auto) 70.9 (50.0-75.0) % Lymph % (Auto) 15.1 L (20.0-40.0) % [place] % (Auto) 13.7 H (0.0-10.0) % Eos % (Auto) 0.0 (0.0-4.0) % Baso % (Auto) 0.3 (0.0-2.0) % Neut # (Auto) 5.0 (1.8-7.0) K/uL Lymph # (Auto) 1.1 (1.0-4.3) K/uL [place] # (Auto) 1.0 H (0.0-0.8) K/uL Eos # (Auto) 0.0 (0.0-0.7) K/uL Baso # (Auto) 0.0 (0.0-0.2) K/uL PT (9.7-12.2) SECONDS INR APTT (21-34) SECONDS Puncture Site Rr pCO2 23 L (35-45) mm/Hg pO2 173 H (80-100) mm/Hg HCO3 31.1 H (21-28) mmol/L ABG pH 7.68 H* (7.35-7.45) ABG Total CO2 27.8 (22-28) mmol/L ABG O2 Saturation 100.0 H (95-98) % ABG Base Excess 7.9 H (-2.0-3.0) mmol/L ABG Hemoglobin 12.8 (11.7-17.4) g/dL ABG Carboxyhemoglobin 1.5 (0.5-1.5) % POC ABG HHb (Measured) 0.0 (0.0-5.0) % ABG Methemoglobin 1.2 (0.0-3.0) % Reji Test Pos A-a O2 Difference 83.0 mm/Hg Respiratory Index 0.5 Hgb O2 Saturation 97.3 (95.0-98.0) % Vent Mode Prvc Mechanical Rate 12 FiO2 40.0 % Tidal Volume 500 PEEP 5 Crit Value Called To Souleymane rn Crit Value Called By Linnea ground water technician Crit Value Read Back Y Blood Gas Notified Time 530 Sodium 121 L (132-148) mmol/L Potassium 3.6 (3.6-5.2) mmol/L Chloride 82 L (98-107) mmol/L Carbon Dioxide 27 (22-30) mmol/L Anion Gap 15 (10-20) BUN 10 (7-17) mg/dL Creatinine 0.6 L (0.7-1.2) mg/dL Est GFR ( Amer) > 60 Est GFR (Non-Af Amer) > 60 POC Glucose (mg/dL) (65-110) mg/dL Random Glucose 108 H (65-105) mg/dL Hemoglobin A1c (4.2-6.5) % Calcium 8.0 L (8.6-10.4) mg/dl Phosphorus 2.3 L (2.5-4.5) mg/dL Magnesium 1.7 (1.6-2.3) mg/dL Total Bilirubin 0.6 (0.2-1.3) mg/dL AST 35 (14-36) U/L ALT < 6 L (9-52) U/L Alkaline Phosphatase 144 H (38-126) U/L Troponin I (0.00-0.120) ng/mL NT-Pro-B Natriuret Pep 99306 H (0-900) pg/mL Total Protein 7.9 (6.3-8.3) g/dL Albumin 2.8 L (3.5-5.0) g/dL Globulin 5.1 H (2.2-3.9) gm/dL Albumin/Globulin Ratio 0.5 L (1.0-2.1) Triglycerides 116 D (0-149) mg/dL Cholesterol 162 (0-199) mg/dL LDL Cholesterol Direct 128 (0-129) mg/dL HDL Cholesterol 23 L (30-70) mg/dL Urine Osmolality (300-1000) mosm/kg Ur Random Creatinine mg/dL Ur Random Sodium mmol/L Urine Opiates Screen (NEGATIVE) Urine Methadone Screen (NEGATIVE) Ur Barbiturates Screen (NEGATIVE) Ur Phencyclidine Scrn (NEGATIVE) Ur Amphetamines Screen (NEGATIVE) U Benzodiazepines Scrn (NEGATIVE) U Oth Cocaine Metabols (NEGATIVE) U Cannabinoids Screen (NEGATIVE) Influenza Typ A,B (EIA) (NEGATIVE) Blood Type Antibody Screen Antibody Identification 08/02/17 08/02/17 08/02/17 Range/Units 01:25 01:25 00:46 WBC (4.8-10.8) K/uL RBC (3.80-5.20) Mil/uL Hgb (11.0-16.0) g/dL Hct (34.0-47.0) % MCV (81.0-99.0) fL MCH (27.0-31.0) pg MCHC (33.0-37.0) g/dL RDW (11.5-14.5) % Plt Count (130-400) K/uL MPV (7.2-11.7) fL Neut % (Auto) (50.0-75.0) % Lymph % (Auto) (20.0-40.0) % [place] % (Auto) (0.0-10.0) % Eos % (Auto) (0.0-4.0) % Baso % (Auto) (0.0-2.0) % Neut # (Auto) (1.8-7.0) K/uL Lymph # (Auto) (1.0-4.3) K/uL [place] # (Auto) (0.0-0.8) K/uL Eos # (Auto) (0.0-0.7) K/uL Baso # (Auto) (0.0-0.2) K/uL PT (9.7-12.2) SECONDS INR APTT (21-34) SECONDS Puncture Site pCO2 (35-45) mm/Hg pO2 (80-100) mm/Hg HCO3 (21-28) mmol/L ABG pH (7.35-7.45) ABG Total CO2 (22-28) mmol/L ABG O2 Saturation (95-98) % ABG Base Excess (-2.0-3.0) mmol/L ABG Hemoglobin (11.7-17.4) g/dL ABG Carboxyhemoglobin (0.5-1.5) % POC ABG HHb (Measured) (0.0-5.0) % ABG Methemoglobin (0.0-3.0) % Reji Test A-a O2 Difference mm/Hg Respiratory Index Hgb O2 Saturation (95.0-98.0) % Vent Mode Mechanical Rate FiO2 % Tidal Volume PEEP Crit Value Called To Crit Value Called By Crit Value Read Back Blood Gas Notified Time Sodium 123 L (132-148) mmol/L Potassium 3.1 L (3.6-5.2) mmol/L Chloride 82 L (98-107) mmol/L Carbon Dioxide 31 H (22-30) mmol/L Anion Gap 13 (10-20) BUN 11 (7-17) mg/dL Creatinine 0.6 L (0.7-1.2) mg/dL Est GFR ( Amer) > 60 Est GFR (Non-Af Amer) > 60 POC Glucose (mg/dL) (65-110) mg/dL Random Glucose 155 H (65-105) mg/dL Hemoglobin A1c (4.2-6.5) % Calcium 8.2 L (8.6-10.4) mg/dl Phosphorus (2.5-4.5) mg/dL Magnesium 1.2 L (1.6-2.3) mg/dL Total Bilirubin 0.5 (0.2-1.3) mg/dL AST 38 H (14-36) U/L ALT < 6 L D (9-52) U/L Alkaline Phosphatase 130 H (38-126) U/L Troponin I (0.00-0.120) ng/mL NT-Pro-B Natriuret Pep (0-900) pg/mL Total Protein 7.5 (6.3-8.3) g/dL Albumin 2.7 L (3.5-5.0) g/dL Globulin 4.8 H (2.2-3.9) gm/dL Albumin/Globulin Ratio 0.6 L (1.0-2.1) Triglycerides (0-149) mg/dL Cholesterol (0-199) mg/dL LDL Cholesterol Direct (0-129) mg/dL HDL Cholesterol (30-70) mg/dL Urine Osmolality 404 (300-1000) mosm/kg Ur Random Creatinine 21.4 mg/dL Ur Random Sodium 118 mmol/L Urine Opiates Screen (NEGATIVE) Urine Methadone Screen (NEGATIVE) Ur Barbiturates Screen (NEGATIVE) Ur Phencyclidine Scrn (NEGATIVE) Ur Amphetamines Screen (NEGATIVE) U Benzodiazepines Scrn (NEGATIVE) U Oth Cocaine Metabols (NEGATIVE) U Cannabinoids Screen (NEGATIVE) Influenza Typ A,B (EIA) (NEGATIVE) Blood Type A POSITIVE Antibody Screen Positive Antibody Identification Anti E 08/01/17 08/01/17 08/01/17 Range/Units 22:17 21:18 19:55 WBC (4.8-10.8) K/uL RBC (3.80-5.20) Mil/uL Hgb (11.0-16.0) g/dL Hct (34.0-47.0) % MCV (81.0-99.0) fL MCH (27.0-31.0) pg MCHC (33.0-37.0) g/dL RDW (11.5-14.5) % Plt Count (130-400) K/uL MPV (7.2-11.7) fL Neut % (Auto) (50.0-75.0) % Lymph % (Auto) (20.0-40.0) % [place] % (Auto) (0.0-10.0) % Eos % (Auto) (0.0-4.0) % Baso % (Auto) (0.0-2.0) % Neut # (Auto) (1.8-7.0) K/uL Lymph # (Auto) (1.0-4.3) K/uL [place] # (Auto) (0.0-0.8) K/uL Eos # (Auto) (0.0-0.7) K/uL Baso # (Auto) (0.0-0.2) K/uL PT (9.7-12.2) SECONDS INR APTT (21-34) SECONDS Puncture Site Rra pCO2 38 (35-45) mm/Hg pO2 402 H (80-100) mm/Hg HCO3 30.3 H (21-28) mmol/L ABG pH 7.51 H (7.35-7.45) ABG Total CO2 31.5 H (22-28) mmol/L ABG O2 Saturation 100.9 H (95-98) % ABG Base Excess 6.8 H (-2.0-3.0) mmol/L ABG Hemoglobin 9.9 L (11.7-17.4) g/dL ABG Carboxyhemoglobin 1.8 H (0.5-1.5) % POC ABG HHb (Measured) -0.9 L (0.0-5.0) % ABG Methemoglobin 1.8 (0.0-3.0) % Reji Test Pos A-a O2 Difference 264.0 mm/Hg Respiratory Index 0.7 Hgb O2 Saturation 97.3 (95.0-98.0) % Vent Mode Prvc Mechanical Rate 12 FiO2 100.0 % Tidal Volume 500 PEEP 5 Crit Value Called To Crit Value Called By Crit Value Read Back Blood Gas Notified Time Sodium (132-148) mmol/L Potassium (3.6-5.2) mmol/L Chloride (98-107) mmol/L Carbon Dioxide (22-30) mmol/L Anion Gap (10-20) BUN (7-17) mg/dL Creatinine (0.7-1.2) mg/dL Est GFR ( Amer) Est GFR (Non-Af Amer) POC Glucose (mg/dL) (65-110) mg/dL Random Glucose (65-105) mg/dL Hemoglobin A1c 5.1 (4.2-6.5) % Calcium (8.6-10.4) mg/dl Phosphorus (2.5-4.5) mg/dL Magnesium (1.6-2.3) mg/dL Total Bilirubin (0.2-1.3) mg/dL AST (14-36) U/L ALT (9-52) U/L Alkaline Phosphatase (38-126) U/L Troponin I (0.00-0.120) ng/mL NT-Pro-B Natriuret Pep (0-900) pg/mL Total Protein (6.3-8.3) g/dL Albumin (3.5-5.0) g/dL Globulin (2.2-3.9) gm/dL Albumin/Globulin Ratio (1.0-2.1) Triglycerides (0-149) mg/dL Cholesterol (0-199) mg/dL LDL Cholesterol Direct (0-129) mg/dL HDL Cholesterol (30-70) mg/dL Urine Osmolality (300-1000) mosm/kg Ur Random Creatinine mg/dL Ur Random Sodium 103 mmol/L Urine Opiates Screen Positive H (NEGATIVE) Urine Methadone Screen Negative (NEGATIVE) Ur Barbiturates Screen Negative (NEGATIVE) Ur Phencyclidine Scrn Negative (NEGATIVE) Ur Amphetamines Screen Negative (NEGATIVE) U Benzodiazepines Scrn Negative (NEGATIVE) U Oth Cocaine Metabols Negative (NEGATIVE) U Cannabinoids Screen Negative (NEGATIVE) Influenza Typ A,B (EIA) (NEGATIVE) Blood Type Antibody Screen Antibody Identification 08/01/17 08/01/17 08/01/17 Range/Units 19:55 19:55 19:55 WBC 10.2 D (4.8-10.8) K/uL RBC 3.38 L (3.80-5.20) Mil/uL Hgb 9.8 L (11.0-16.0) g/dL Hct 29.7 L (34.0-47.0) % MCV 87.7 (81.0-99.0) fL MCH 29.0 (27.0-31.0) pg MCHC 33.1 (33.0-37.0) g/dL RDW 17.2 H (11.5-14.5) % Plt Count 221 (130-400) K/uL MPV 8.5 (7.2-11.7) fL Neut % (Auto) 79.6 H (50.0-75.0) % Lymph % (Auto) 16.8 L (20.0-40.0) % [place] % (Auto) 2.8 (0.0-10.0) % Eos % (Auto) 0.6 (0.0-4.0) % Baso % (Auto) 0.2 (0.0-2.0) % Neut # (Auto) 8.1 H (1.8-7.0) K/uL Lymph # (Auto) 1.7 (1.0-4.3) K/uL [place] # (Auto) 0.3 (0.0-0.8) K/uL Eos # (Auto) 0.1 (0.0-0.7) K/uL Baso # (Auto) 0.0 (0.0-0.2) K/uL PT 14.6 H (9.7-12.2) SECONDS INR 1.3 APTT 47 H (21-34) SECONDS Puncture Site pCO2 (35-45) mm/Hg pO2 (80-100) mm/Hg HCO3 (21-28) mmol/L ABG pH (7.35-7.45) ABG Total CO2 (22-28) mmol/L ABG O2 Saturation (95-98) % ABG Base Excess (-2.0-3.0) mmol/L ABG Hemoglobin (11.7-17.4) g/dL ABG Carboxyhemoglobin (0.5-1.5) % POC ABG HHb (Measured) (0.0-5.0) % ABG Methemoglobin (0.0-3.0) % Reji Test A-a O2 Difference mm/Hg Respiratory Index Hgb O2 Saturation (95.0-98.0) % Vent Mode Mechanical Rate FiO2 % Tidal Volume PEEP Crit Value Called To Crit Value Called By Crit Value Read Back Blood Gas Notified Time Sodium 121 L (132-148) mmol/L Potassium 3.0 L (3.6-5.2) mmol/L Chloride 83 L (98-107) mmol/L Carbon Dioxide 31 H (22-30) mmol/L Anion Gap 11 (10-20) BUN 11 (7-17) mg/dL Creatinine 0.6 L (0.7-1.2) mg/dL Est GFR ( Amer) > 60 Est GFR (Non-Af Amer) > 60 POC Glucose (mg/dL) (65-110) mg/dL Random Glucose 205 H (65-105) mg/dL Hemoglobin A1c (4.2-6.5) % Calcium 8.1 L (8.6-10.4) mg/dl Phosphorus (2.5-4.5) mg/dL Magnesium (1.6-2.3) mg/dL Total Bilirubin 0.4 (0.2-1.3) mg/dL AST 36 D (14-36) U/L ALT 10 (9-52) U/L Alkaline Phosphatase 139 H (38-126) U/L Troponin I 0.0190 (0.00-0.120) ng/mL NT-Pro-B Natriuret Pep (0-900) pg/mL Total Protein 7.3 (6.3-8.3) g/dL Albumin 2.6 L (3.5-5.0) g/dL Globulin 4.7 H (2.2-3.9) gm/dL Albumin/Globulin Ratio 0.6 L (1.0-2.1) Triglycerides 94 D (0-149) mg/dL Cholesterol 143 (0-199) mg/dL LDL Cholesterol Direct 117 (0-129) mg/dL HDL Cholesterol 20 L (30-70) mg/dL Urine Osmolality (300-1000) mosm/kg Ur Random Creatinine mg/dL Ur Random Sodium mmol/L Urine Opiates Screen (NEGATIVE) Urine Methadone Screen (NEGATIVE) Ur Barbiturates Screen (NEGATIVE) Ur Phencyclidine Scrn (NEGATIVE) Ur Amphetamines Screen (NEGATIVE) U Benzodiazepines Scrn (NEGATIVE) U Oth Cocaine Metabols (NEGATIVE) U Cannabinoids Screen (NEGATIVE) Influenza Typ A,B (EIA) (NEGATIVE) Blood Type Antibody Screen Antibody Identification 08/01/17 Range/Units 19:07 WBC (4.8-10.8) K/uL RBC (3.80-5.20) Mil/uL Hgb (11.0-16.0) g/dL Hct (34.0-47.0) % MCV (81.0-99.0) fL MCH (27.0-31.0) pg MCHC (33.0-37.0) g/dL RDW (11.5-14.5) % Plt Count (130-400) K/uL MPV (7.2-11.7) fL Neut % (Auto) (50.0-75.0) % Lymph % (Auto) (20.0-40.0) % [place] % (Auto) (0.0-10.0) % Eos % (Auto) (0.0-4.0) % Baso % (Auto) (0.0-2.0) % Neut # (Auto) (1.8-7.0) K/uL Lymph # (Auto) (1.0-4.3) K/uL [place] # (Auto) (0.0-0.8) K/uL Eos # (Auto) (0.0-0.7) K/uL Baso # (Auto) (0.0-0.2) K/uL PT (9.7-12.2) SECONDS INR APTT (21-34) SECONDS Puncture Site pCO2 (35-45) mm/Hg pO2 (80-100) mm/Hg HCO3 (21-28) mmol/L ABG pH (7.35-7.45) ABG Total CO2 (22-28) mmol/L ABG O2 Saturation (95-98) % ABG Base Excess (-2.0-3.0) mmol/L ABG Hemoglobin (11.7-17.4) g/dL ABG Carboxyhemoglobin (0.5-1.5) % POC ABG HHb (Measured) (0.0-5.0) % ABG Methemoglobin (0.0-3.0) % Reji Test A-a O2 Difference mm/Hg Respiratory Index Hgb O2 Saturation (95.0-98.0) % Vent Mode Mechanical Rate FiO2 % Tidal Volume PEEP Crit Value Called To Crit Value Called By Crit Value Read Back Blood Gas Notified Time Sodium (132-148) mmol/L Potassium (3.6-5.2) mmol/L Chloride (98-107) mmol/L Carbon Dioxide (22-30) mmol/L Anion Gap (10-20) BUN (7-17) mg/dL Creatinine (0.7-1.2) mg/dL Est GFR ( Amer) Est GFR (Non-Af Amer) POC Glucose (mg/dL) 221 H (65-110) mg/dL Random Glucose (65-105) mg/dL Hemoglobin A1c (4.2-6.5) % Calcium (8.6-10.4) mg/dl Phosphorus (2.5-4.5) mg/dL Magnesium (1.6-2.3) mg/dL Total Bilirubin (0.2-1.3) mg/dL AST (14-36) U/L ALT (9-52) U/L Alkaline Phosphatase (38-126) U/L Troponin I (0.00-0.120) ng/mL NT-Pro-B Natriuret Pep (0-900) pg/mL Total Protein (6.3-8.3) g/dL Albumin (3.5-5.0) g/dL Globulin (2.2-3.9) gm/dL Albumin/Globulin Ratio (1.0-2.1) Triglycerides (0-149) mg/dL Cholesterol (0-199) mg/dL LDL Cholesterol Direct (0-129) mg/dL HDL Cholesterol (30-70) mg/dL Urine Osmolality (300-1000) mosm/kg Ur Random Creatinine mg/dL Ur Random Sodium mmol/L Urine Opiates Screen (NEGATIVE) Urine Methadone Screen (NEGATIVE) Ur Barbiturates Screen (NEGATIVE) Ur Phencyclidine Scrn (NEGATIVE) Ur Amphetamines Screen (NEGATIVE) U Benzodiazepines Scrn (NEGATIVE) U Oth Cocaine Metabols (NEGATIVE) U Cannabinoids Screen (NEGATIVE) Influenza Typ A,B (EIA) (NEGATIVE) Blood Type Antibody Screen Antibody Identification Laboratory Results - last 24 hr 08/01/17 08/01/17 08/01/17 19:07 19:55 19:55 WBC 10.2 D RBC 3.38 L Hgb 9.8 L Hct 29.7 L MCV 87.7 MCH 29.0 MCHC 33.1 RDW 17.2 H Plt Count 221 MPV 8.5 Neut % (Auto) 79.6 H Lymph % (Auto) 16.8 L [place] % (Auto) 2.8 Eos % (Auto) 0.6 Baso % (Auto) 0.2 Neut # (Auto) 8.1 H Lymph # (Auto) 1.7 [place] # (Auto) 0.3 Eos # (Auto) 0.1 Baso # (Auto) 0.0 PT 14.6 H INR 1.3 APTT 47 H Puncture Site pCO2 pO2 HCO3 ABG pH ABG Total CO2 ABG O2 Saturation ABG Base Excess ABG Hemoglobin ABG Carboxyhemoglobin POC ABG HHb (Measured) ABG Methemoglobin Reji Test A-a O2 Difference Respiratory Index Hgb O2 Saturation Vent Mode Mechanical Rate FiO2 Tidal Volume PEEP Crit Value Called To Crit Value Called By Crit Value Read Back Blood Gas Notified Time Sodium Potassium Chloride Carbon Dioxide Anion Gap BUN Creatinine Est GFR ( Amer) Est GFR (Non-Af Amer) POC Glucose (mg/dL) 221 H Random Glucose Hemoglobin A1c Calcium Phosphorus Magnesium Total Bilirubin AST ALT Alkaline Phosphatase Troponin I NT-Pro-B Natriuret Pep Total Protein Albumin Globulin Albumin/Globulin Ratio Triglycerides Cholesterol LDL Cholesterol Direct HDL Cholesterol Urine Osmolality Ur Random Creatinine Ur Random Sodium Urine Opiates Screen Urine Methadone Screen Ur Barbiturates Screen Ur Phencyclidine Scrn Ur Amphetamines Screen U Benzodiazepines Scrn U Oth Cocaine Metabols U Cannabinoids Screen Influenza Typ A,B (EIA) Blood Type Antibody Screen Antibody Identification 08/01/17 08/01/17 08/01/17 19:55 19:55 21:18 WBC RBC Hgb Hct MCV MCH MCHC RDW Plt Count MPV Neut % (Auto) Lymph % (Auto) [place] % (Auto) Eos % (Auto) Baso % (Auto) Neut # (Auto) Lymph # (Auto) [place] # (Auto) Eos # (Auto) Baso # (Auto) PT INR APTT Puncture Site pCO2 pO2 HCO3 ABG pH ABG Total CO2 ABG O2 Saturation ABG Base Excess ABG Hemoglobin ABG Carboxyhemoglobin POC ABG HHb (Measured) ABG Methemoglobin Reji Test A-a O2 Difference Respiratory Index Hgb O2 Saturation Vent Mode Mechanical Rate FiO2 Tidal Volume PEEP Crit Value Called To Crit Value Called By Crit Value Read Back Blood Gas Notified Time Sodium 121 L Potassium 3.0 L Chloride 83 L Carbon Dioxide 31 H Anion Gap 11 BUN 11 Creatinine 0.6 L Est GFR ( Amer) > 60 Est GFR (Non-Af Amer) > 60 POC Glucose (mg/dL) Random Glucose 205 H Hemoglobin A1c 5.1 Calcium 8.1 L Phosphorus Magnesium Total Bilirubin 0.4 AST 36 D ALT 10 Alkaline Phosphatase 139 H Troponin I 0.0190 NT-Pro-B Natriuret Pep Total Protein 7.3 Albumin 2.6 L Globulin 4.7 H Albumin/Globulin Ratio 0.6 L Triglycerides 94 D Cholesterol 143 LDL Cholesterol Direct 117 HDL Cholesterol 20 L Urine Osmolality Ur Random Creatinine Ur Random Sodium 103 Urine Opiates Screen Positive H Urine Methadone Screen Negative Ur Barbiturates Screen Negative Ur Phencyclidine Scrn Negative Ur Amphetamines Screen Negative U Benzodiazepines Scrn Negative U Oth Cocaine Metabols Negative U Cannabinoids Screen Negative Influenza Typ A,B (EIA) Blood Type Antibody Screen Antibody Identification 08/01/17 08/02/17 08/02/17 22:17 00:46 01:25 WBC RBC Hgb Hct MCV MCH MCHC RDW Plt Count MPV Neut % (Auto) Lymph % (Auto) [place] % (Auto) Eos % (Auto) Baso % (Auto) Neut # (Auto) Lymph # (Auto) [place] # (Auto) Eos # (Auto) Baso # (Auto) PT INR APTT Puncture Site Rra pCO2 38 pO2 402 H HCO3 30.3 H ABG pH 7.51 H ABG Total CO2 31.5 H ABG O2 Saturation 100.9 H ABG Base Excess 6.8 H ABG Hemoglobin 9.9 L ABG Carboxyhemoglobin 1.8 H POC ABG HHb (Measured) -0.9 L ABG Methemoglobin 1.8 Rjei Test Pos A-a O2 Difference 264.0 Respiratory Index 0.7 Hgb O2 Saturation 97.3 Vent Mode Prvc Mechanical Rate 12 FiO2 100.0 Tidal Volume 500 PEEP 5 Crit Value Called To Crit Value Called By Crit Value Read Back Blood Gas Notified Time Sodium 123 L Potassium 3.1 L Chloride 82 L Carbon Dioxide 31 H Anion Gap 13 BUN 11 Creatinine 0.6 L Est GFR ( Amer) > 60 Est GFR (Non-Af Amer) > 60 POC Glucose (mg/dL) Random Glucose 155 H Hemoglobin A1c Calcium 8.2 L Phosphorus Magnesium 1.2 L Total Bilirubin 0.5 AST 38 H ALT < 6 L D Alkaline Phosphatase 130 H Troponin I NT-Pro-B Natriuret Pep Total Protein 7.5 Albumin 2.7 L Globulin 4.8 H Albumin/Globulin Ratio 0.6 L Triglycerides Cholesterol LDL Cholesterol Direct HDL Cholesterol Urine Osmolality Ur Random Creatinine Ur Random Sodium Urine Opiates Screen Urine Methadone Screen Ur Barbiturates Screen Ur Phencyclidine Scrn Ur Amphetamines Screen U Benzodiazepines Scrn U Oth Cocaine Metabols U Cannabinoids Screen Influenza Typ A,B (EIA) Blood Type A POSITIVE Antibody Screen Positive Antibody Identification Anti E 08/02/17 08/02/17 08/02/17 01:25 05:14 06:30 WBC RBC Hgb Hct MCV MCH MCHC RDW Plt Count MPV Neut % (Auto) Lymph % (Auto) [place] % (Auto) Eos % (Auto) Baso % (Auto) Neut # (Auto) Lymph # (Auto) [place] # (Auto) Eos # (Auto) Baso # (Auto) PT INR APTT Puncture Site Rr pCO2 23 L pO2 173 H HCO3 31.1 H ABG pH 7.68 H* ABG Total CO2 27.8 ABG O2 Saturation 100.0 H ABG Base Excess 7.9 H ABG Hemoglobin 12.8 ABG Carboxyhemoglobin 1.5 POC ABG HHb (Measured) 0.0 ABG Methemoglobin 1.2 Reji Test Pos A-a O2 Difference 83.0 Respiratory Index 0.5 Hgb O2 Saturation 97.3 Vent Mode Prvc Mechanical Rate 12 FiO2 40.0 Tidal Volume 500 PEEP 5 Crit Value Called To Souleymane rn Crit Value Called By Linnea ground water technician Crit Value Read Back Y Blood Gas Notified Time 530 Sodium 121 L Potassium 3.6 Chloride 82 L Carbon Dioxide 27 Anion Gap 15 BUN 10 Creatinine 0.6 L Est GFR ( Amer) > 60 Est GFR (Non-Af Amer) > 60 POC Glucose (mg/dL) Random Glucose 108 H Hemoglobin A1c Calcium 8.0 L Phosphorus 2.3 L Magnesium 1.7 Total Bilirubin 0.6 AST 35 ALT < 6 L Alkaline Phosphatase 144 H Troponin I NT-Pro-B Natriuret Pep 17591 H Total Protein 7.9 Albumin 2.8 L Globulin 5.1 H Albumin/Globulin Ratio 0.5 L Triglycerides 116 D Cholesterol 162 LDL Cholesterol Direct 128 HDL Cholesterol 23 L Urine Osmolality 404 Ur Random Creatinine 21.4 Ur Random Sodium 118 Urine Opiates Screen Urine Methadone Screen Ur Barbiturates Screen Ur Phencyclidine Scrn Ur Amphetamines Screen U Benzodiazepines Scrn U Oth Cocaine Metabols U Cannabinoids Screen Influenza Typ A,B (EIA) Blood Type Antibody Screen Antibody Identification 08/02/17 08/02/17 08/02/17 06:32 08:55 09:05 WBC 7.0 RBC 3.34 L Hgb 9.6 L Hct 28.6 L MCV 85.6 D MCH 28.9 MCHC 33.7 RDW 16.4 H Plt Count 211 MPV 8.6 Neut % (Auto) 70.9 Lymph % (Auto) 15.1 L [place] % (Auto) 13.7 H Eos % (Auto) 0.0 Baso % (Auto) 0.3 Neut # (Auto) 5.0 Lymph # (Auto) 1.1 [place] # (Auto) 1.0 H Eos # (Auto) 0.0 Baso # (Auto) 0.0 PT INR APTT Puncture Site pCO2 pO2 HCO3 ABG pH ABG Total CO2 ABG O2 Saturation ABG Base Excess ABG Hemoglobin ABG Carboxyhemoglobin POC ABG HHb (Measured) ABG Methemoglobin Reji Test A-a O2 Difference Respiratory Index Hgb O2 Saturation Vent Mode Mechanical Rate FiO2 Tidal Volume PEEP Crit Value Called To Crit Value Called By Crit Value Read Back Blood Gas Notified Time Sodium Potassium Chloride Carbon Dioxide Anion Gap BUN Creatinine Est GFR ( Amer) Est GFR (Non-Af Amer) POC Glucose (mg/dL) 108 Random Glucose Hemoglobin A1c Calcium Phosphorus Magnesium Total Bilirubin AST ALT Alkaline Phosphatase Troponin I NT-Pro-B Natriuret Pep Total Protein Albumin Globulin Albumin/Globulin Ratio Triglycerides Cholesterol LDL Cholesterol Direct HDL Cholesterol Urine Osmolality Ur Random Creatinine Ur Random Sodium Urine Opiates Screen Urine Methadone Screen Ur Barbiturates Screen Ur Phencyclidine Scrn Ur Amphetamines Screen U Benzodiazepines Scrn U Oth Cocaine Metabols U Cannabinoids Screen Influenza Typ A,B (EIA) Negative for flu a/b Blood Type Antibody Screen Antibody Identification 08/02/17 11:45 WBC RBC Hgb Hct MCV MCH MCHC RDW Plt Count MPV Neut % (Auto) Lymph % (Auto) [place] % (Auto) Eos % (Auto) Baso % (Auto) Neut # (Auto) Lymph # (Auto) [place] # (Auto) Eos # (Auto) Baso # (Auto) PT INR APTT Puncture Site pCO2 pO2 HCO3 ABG pH ABG Total CO2 ABG O2 Saturation ABG Base Excess ABG Hemoglobin ABG Carboxyhemoglobin POC ABG HHb (Measured) ABG Methemoglobin Reji Test A-a O2 Difference Respiratory Index Hgb O2 Saturation Vent Mode Mechanical Rate FiO2 Tidal Volume PEEP Crit Value Called To Crit Value Called By Crit Value Read Back Blood Gas Notified Time Sodium Potassium Chloride Carbon Dioxide Anion Gap BUN Creatinine Est GFR ( Amer) Est GFR (Non-Af Amer) POC Glucose (mg/dL) 133 H Random Glucose Hemoglobin A1c Calcium Phosphorus Magnesium Total Bilirubin AST ALT Alkaline Phosphatase Troponin I NT-Pro-B Natriuret Pep Total Protein Albumin Globulin Albumin/Globulin Ratio Triglycerides Cholesterol LDL Cholesterol Direct HDL Cholesterol Urine Osmolality Ur Random Creatinine Ur Random Sodium Urine Opiates Screen Urine Methadone Screen Ur Barbiturates Screen Ur Phencyclidine Scrn Ur Amphetamines Screen U Benzodiazepines Scrn U Oth Cocaine Metabols U Cannabinoids Screen Influenza Typ A,B (EIA) Blood Type Antibody Screen Antibody Identification EKG/Cardiology Studies: Cardiology / EKG Studies 08/01/17 19:12 ELECTROCARDIOGRAM Stat Comment: Mode Of Transportation: BED Reason For Exam: code stroke 08/02/17 03:19 EKG [ELECTROCARDIOGRAM] Stat Comment: Mode Of Transportation: Reason For Exam: arrhythmia Assessment/Plan - Assessment and Plan (Free Text) Plan: Patient admitted to ICU for seizures and is intubated. Patient seen and examined at bedside. Patient awake, however not able to move right upper arm and right lower leg. --Seizures; etiology unknown; AED started, neurology eval, EEG eval, ct head neg -systolic Heart failure:continue asa, statin, acei, obtain echo to r/o PFO -P. A-fib: will benefit from AC (cardiology input) echo pending -avoid sedation after infusing of AED -Paralysis of right side: ?abhijeet's paralysis repeat CT head -continue ng tubefeeds -BGm q6hrs, ISS aspart -continue dvt/pud ppx - Date & Time Date: 08/02/17 Time: 12:00
[2017-08-02] MEDS: Albuterol-Ipratrop 3 mg / 0.5 (3 ml) UD INH SCH ×2 (13:29→19:40)
[2017-08-02] MEDS ORDERED: Fosphenytoin 100 mg/2 ml Inj IV SCH (14:00)
[2017-08-02] MEDS ORDERED: Fosphenytoin 100 MG in Dextrose 5% In Water 50 ML IV SCH (14:00)
--- NOTE | 2017-08-02 16:31 | CT ---
PROCEDURE: CT HEAD WITHOUT CONTRAST. HISTORY: rule out CVA COMPARISON: None available. TECHNIQUE: Axial computed tomography images were obtained through the head/brain without intravenous contrast. Radiation dose: Total exam DLP = 1297.35 mGy-cm. This CT exam was performed using one or more of the following dose reduction techniques: Automated exposure control, adjustment of the mA and/or kV according to patient size, and/or use of iterative reconstruction technique. FINDINGS: HEMORRHAGE: No intracranial hemorrhage. BRAIN: No mass effect or edema. No significant atrophy. Mild periventricular white matter lucency with patchy foci of deep and subcortical white matter lucency, consistent with age related microvascular ischemic change. No evidence of acute infarct. VENTRICLES: Unremarkable. No hydrocephalus. CALVARIUM: Unremarkable. PARANASAL SINUSES: Unremarkable as visualized. No significant inflammatory changes. MASTOID AIR CELLS: Unremarkable as visualized. No inflammatory changes. OTHER FINDINGS: Heydi tracheal tube noted. IMPRESSION: No evidence of acute infarct. Chronic microvascular white matter ischemic change. Otherwise unremarkable.
--- NOTE | 2017-08-02 16:45 | CT ---
PROCEDURE: CT Chest without contrast HISTORY: opacities seen on cxr COMPARISON: 07/12/2017 TECHNIQUE: Contiguous axial images were obtained through the chest without intravenous contrast enhancement. Sagittal and coronal reconstructions were performed. Radiation dose (DLP): 536.57 mGy-cm. This CT exam was performed using one or more of the following dose reduction techniques: Automated exposure control, adjustment of the mA and/or kV according to patient size, and/or use of iterative reconstruction technique. FINDINGS: LUNGS: Right lower lobe subsegmental atelectasis. No pulmonary infiltrate. 4 mm nodule in anterior segment right upper lobe. Calcified granuloma in the right middle lobe, lateral segment. MEDIASTINUM: Unremarkable thoracic aorta. No aneurysm. Cardiomegaly. CABG. Valvular replacement. Sternotomy wires. Dilated main pulmonary artery up to 3.7 cm diameter. Correlate with possible pulmonary arterial hypertension. No lymphadenopathy. Endotracheal tube and nasogastric tube noted. PLEURA: Small right pleural effusion decreased in size from prior CT. No left pleural effusion. No pneumothorax. BONES: No fracture. No destructive lesion. UPPER ABDOMEN: Grossly unremarkable. OTHER FINDINGS: None. IMPRESSION: Small right pleural effusion and right lower lobe subsegmental atelectasis. Opacity seen at right lung base on earlier chest radiograph of the same date was likely artifactual due to overlying medical equipment. .
[2017-08-02] MEDS ORDERED: Sodium Chloride 0.9% 1,000 ML IV ONE (17:45)
[2017-08-02] MEDS ORDERED: Lacosamide 100 MG Tab PO SCH (18:00)
[2017-08-02] MEDS: Sodium Chloride 0.9% 1,000 ML IV SCH (18:38)
[2017-08-02 19:18] LABS: BLOOD UREA NITROGEN 11 mg/dL (7-17); CALCIUM 7.5 mg/dl (8.6-10.4); GFR AFRICAN-AMERICAN > 60; GFR NON-AFRICAN AMERICAN > 60
[2017-08-02 19:20] LABS: OSMOLALITY,URINE 497 mosm/kg (300-1000)
[2017-08-02] MEDS ORDERED: Rosuvastatin Calcium 2.5 mg Tab PO SCH (22:00)
--- NOTE | 2017-08-02 22:57 | CARD ---
APPROVED REPORT EXAM: LIMITED Two-dimensional echocardiogram with saline bubble. INDICATION CVA/TIA Echo Enhancing Agent Indication: Rule Out Septal Defect Agent/Amount Used: Agitated Saline <Conclusion> No ASD seen.
--- NOTE | 2017-08-02 23:10 | CARD ---
APPROVED REPORT EKG Measurement Heart [id number] <Conclusion> Sinus tachycardia Left axis deviation Incomplete right bundle branch block Left ventricular hypertrophy with repolarization abnormality Abnormal ECG
--- NOTE | 2017-08-02 23:35 | CP.PCM.HP ---
<Cassandra Lynne - Last Filed: 08/02/17 23:33> History of Present Illness - History of Present Illness History of Present Illness: Medicine Note for Hospitalist Service 72 F with h/o ischemic cardiomyopthy low ef, dm, siadh, mssa left knee septic arthritis, s/p drainage, htn, RA, not on anticoagulation was in rehab, had 3 seizure episodes, and received ativan at the rehab. In ER patient was completely unresponsive, CT brain didn't show any acute changes, patient was intubated in ER for airway protection. Patient in short time started to respond appropriately and later in ICU need some sedation. Hyponatremia 123 noticed in with hypokalemia, and hypomagnesimia, patient had leg edema with skin wrinkles suggesting prior increased edema. Patient was on genta, cefazolin and refampin for MSSA septic arthritis. PMH as above PSH as above Allergies nkda Social history Meds noticed including tramadol for pain Present on Admission - Present on Admission Any Indicators Present on Admission: No Past Patient History - Infectious Disease Hx of Infectious Diseases: None - Past Medical History & Family History Past Medical History?: Yes - Past Social History Smoking Status: Never Smoked - CARDIAC Hx Atrial Fibrillation: Yes Hx Cardia Arrhythmia: Yes Hx Congestive Heart Failure: Yes Hx Hypercholesterolemia: Yes Hx Hypertension: Yes Hx Pacemaker: No - PULMONARY Hx Chronic Obstructive Pulmonary Disease (COPD): Yes - NEUROLOGICAL Hx Dementia: Yes Hx Seizures: No - HEENT Hx HEENT Problems: No - RENAL Hx Chronic Kidney Disease: No - ENDOCRINE/METABOLIC Hx Endocrine Disorders: Yes Hx Diabetes Mellitus Type 2: Yes - HEMATOLOGICAL/ONCOLOGICAL Hx Anemia: Yes Hx Human Immunodeficiency Virus (HIV): No - INTEGUMENTARY Hx Dermatological Problems: No - MUSCULOSKELETAL/RHEUMATOLOGICAL Hx Arthritis: Yes Hx Osteoporosis: Yes Hx Rheumatoid Arthritis: Yes - GASTROINTESTINAL Hx Gastrointestinal Disorders: Yes Hx Ulcer: Yes Other/Comment: appendectomy history of endoscopies. ventral hernia - GENITOURINARY/GYNECOLOGICAL Hx Sexually Transmitted Disorders: No - PSYCHIATRIC Hx Substance Use: No - SURGICAL HISTORY Hx Appendectomy: Yes Hx Coronary Artery Bypass Graft: Yes Hx Coronary Stent: Yes - ANESTHESIA Hx Anesthesia: Yes Hx Anesthesia Reactions: No Hx Malignant Hyperthermia: No Meds Allergies/Adverse Reactions: Allergies Allergy/AdvReac Type Severity Reaction Status Date / Time No Known Allergies Allergy Verified 02/15/18 19:02 Physical Exam - Constitutional Appears: No Acute Distress - Head Exam Head Exam: NORMAL INSPECTION, NORMOCEPHALIC - Eye Exam Eye Exam: EOMI, Normal appearance, PERRL Pupil Exam: NORMAL ACCOMODATION - ENT Exam ENT Exam: Mucous Membranes Moist, Normal Exam - Respiratory Exam Respiratory Exam: Clear to Auscultation Bilateral, NORMAL BREATHING PATTERN. absent: Wheezes - Cardiovascular Exam Cardiovascular Exam: REGULAR RHYTHM, RRR - GI/Abdominal Exam GI & Abdominal Exam: Normal Bowel Sounds, Soft - Rectal Exam Rectal Exam: Deferred - Extremities Exam Extremities exam: Positive for: normal inspection, pedal pulses present. Negative for: pedal edema, tenderness - Back Exam Back exam: NORMAL INSPECTION - Neurological Exam Neurological exam: Alert, Oriented x3 - Psychiatric Exam Psychiatric exam: Normal Affect, Normal Mood - Skin Skin Exam: Dry, Intact, Normal Color, Warm Results - Vital Signs Recent Vital Signs: Last Vital Signs Temp 98.5 F 08/02/17 20:00 Pulse 75 08/02/17 22:07 Resp 12 08/02/17 22:07 BP 95/49 L 08/02/17 22:07 Pulse Ox 100 08/02/17 22:07 - Labs Result Diagrams: 08/02/17 06:32 08/02/17 19:02 Labs: Laboratory Results - last 24 hr 08/02/17 08/02/17 08/02/17 00:46 01:25 01:25 WBC RBC Hgb Hct MCV MCH MCHC RDW Plt Count MPV Neut % (Auto) Lymph % (Auto) [place] % (Auto) Eos % (Auto) Baso % (Auto) Neut # (Auto) Lymph # (Auto) [place] # (Auto) Eos # (Auto) Baso # (Auto) Puncture Site pCO2 pO2 HCO3 ABG pH ABG Total CO2 ABG O2 Saturation ABG Base Excess ABG Hemoglobin ABG Carboxyhemoglobin POC ABG HHb (Measured) ABG Methemoglobin Reji Test A-a O2 Difference Respiratory Index Hgb O2 Saturation Vent Mode Mechanical Rate FiO2 Tidal Volume PEEP Crit Value Called To Crit Value Called By Crit Value Read Back Blood Gas Notified Time Sodium 123 L Potassium 3.1 L Chloride 82 L Carbon Dioxide 31 H Anion Gap 13 BUN 11 Creatinine 0.6 L Est GFR ( Amer) > 60 Est GFR (Non-Af Amer) > 60 POC Glucose (mg/dL) Random Glucose 155 H Calcium 8.2 L Phosphorus Magnesium 1.2 L Total Bilirubin 0.5 AST 38 H ALT < 6 L D Alkaline Phosphatase 130 H NT-Pro-B Natriuret Pep Total Protein 7.5 Albumin 2.7 L Globulin 4.8 H Albumin/Globulin Ratio 0.6 L Triglycerides Cholesterol LDL Cholesterol Direct HDL Cholesterol Urine Osmolality 404 Ur Random Creatinine 21.4 Ur Random Sodium 118 Influenza Typ A,B (EIA) Blood Type A POSITIVE Antibody Screen Positive Antibody Identification Anti E 08/02/17 08/02/17 08/02/17 05:14 06:30 06:32 WBC 7.0 RBC 3.34 L Hgb 9.6 L Hct 28.6 L MCV 85.6 D MCH 28.9 MCHC 33.7 RDW 16.4 H Plt Count 211 MPV 8.6 Neut % (Auto) 70.9 Lymph % (Auto) 15.1 L [place] % (Auto) 13.7 H Eos % (Auto) 0.0 Baso % (Auto) 0.3 Neut # (Auto) 5.0 Lymph # (Auto) 1.1 [place] # (Auto) 1.0 H Eos # (Auto) 0.0 Baso # (Auto) 0.0 Puncture Site Rr pCO2 23 L pO2 173 H HCO3 31.1 H ABG pH 7.68 H* ABG Total CO2 27.8 ABG O2 Saturation 100.0 H ABG Base Excess 7.9 H ABG Hemoglobin 12.8 ABG Carboxyhemoglobin 1.5 POC ABG HHb (Measured) 0.0 ABG Methemoglobin 1.2 Reji Test Pos A-a O2 Difference 83.0 Respiratory Index 0.5 Hgb O2 Saturation 97.3 Vent Mode Prvc Mechanical Rate 12 FiO2 40.0 Tidal Volume 500 PEEP 5 Crit Value Called To Souleymane rn Crit Value Called By Linnea boom truck driver Crit Value Read Back Y Blood Gas Notified Time 530 Sodium 121 L Potassium 3.6 Chloride 82 L Carbon Dioxide 27 Anion Gap 15 BUN 10 Creatinine 0.6 L Est GFR ( Amer) > 60 Est GFR (Non-Af Amer) > 60 POC Glucose (mg/dL) Random Glucose 108 H Calcium 8.0 L Phosphorus 2.3 L Magnesium 1.7 Total Bilirubin 0.6 AST 35 ALT < 6 L Alkaline Phosphatase 144 H NT-Pro-B Natriuret Pep 96862 H Total Protein 7.9 Albumin 2.8 L Globulin 5.1 H Albumin/Globulin Ratio 0.5 L Triglycerides 116 D Cholesterol 162 LDL Cholesterol Direct 128 HDL Cholesterol 23 L Urine Osmolality Ur Random Creatinine Ur Random Sodium Influenza Typ A,B (EIA) Blood Type Antibody Screen Antibody Identification 08/02/17 08/02/17 08/02/17 08:55 09:05 11:45 WBC RBC Hgb Hct MCV MCH MCHC RDW Plt Count MPV Neut % (Auto) Lymph % (Auto) [place] % (Auto) Eos % (Auto) Baso % (Auto) Neut # (Auto) Lymph # (Auto) [place] # (Auto) Eos # (Auto) Baso # (Auto) Puncture Site pCO2 pO2 HCO3 ABG pH ABG Total CO2 ABG O2 Saturation ABG Base Excess ABG Hemoglobin ABG Carboxyhemoglobin POC ABG HHb (Measured) ABG Methemoglobin Reji Test A-a O2 Difference Respiratory Index Hgb O2 Saturation Vent Mode Mechanical Rate FiO2 Tidal Volume PEEP Crit Value Called To Crit Value Called By Crit Value Read Back Blood Gas Notified Time Sodium Potassium Chloride Carbon Dioxide Anion Gap BUN Creatinine Est GFR ( Amer) Est GFR (Non-Af Amer) POC Glucose (mg/dL) 108 133 H Random Glucose Calcium Phosphorus Magnesium Total Bilirubin AST ALT Alkaline Phosphatase NT-Pro-B Natriuret Pep Total Protein Albumin Globulin Albumin/Globulin Ratio Triglycerides Cholesterol LDL Cholesterol Direct HDL Cholesterol Urine Osmolality Ur Random Creatinine Ur Random Sodium Influenza Typ A,B (EIA) Negative for flu a/b Blood Type Antibody Screen Antibody Identification 08/02/17 08/02/17 19:02 19:02 WBC RBC Hgb Hct MCV MCH MCHC RDW Plt Count MPV Neut % (Auto) Lymph % (Auto) [place] % (Auto) Eos % (Auto) Baso % (Auto) Neut # (Auto) Lymph # (Auto) [place] # (Auto) Eos # (Auto) Baso # (Auto) Puncture Site pCO2 pO2 HCO3 ABG pH ABG Total CO2 ABG O2 Saturation ABG Base Excess ABG Hemoglobin ABG Carboxyhemoglobin POC ABG HHb (Measured) ABG Methemoglobin Reji Test A-a O2 Difference Respiratory Index Hgb O2 Saturation Vent Mode Mechanical Rate FiO2 Tidal Volume PEEP Crit Value Called To Crit Value Called By Crit Value Read Back Blood Gas Notified Time Sodium 122 L Potassium 3.6 Chloride 85 L Carbon Dioxide 30 Anion Gap 10 BUN 11 Creatinine 0.8 Est GFR ( Amer) > 60 Est GFR (Non-Af Amer) > 60 POC Glucose (mg/dL) Random Glucose 90 Calcium 7.5 L Phosphorus Magnesium Total Bilirubin AST ALT Alkaline Phosphatase NT-Pro-B Natriuret Pep Total Protein Albumin Globulin Albumin/Globulin Ratio Triglycerides Cholesterol LDL Cholesterol Direct HDL Cholesterol Urine Osmolality 497 Ur Random Creatinine Ur Random Sodium 15 Influenza Typ A,B (EIA) Blood Type Antibody Screen Antibody Identification Assessment & Plan - Assessment and Plan (Free Text) Plan: New onset seizure with precipitating factors being hypokalemia, hyponatremia from siadh, hypomagnesimia, meds like tramadol, with prolonged post ictal phase , negative ct unlikely metastatic/embolic disease. * On treatment of MSSA, septic arthritis * Ischemic cardiomyopathy low ef, s/p MVR patient is not on anticoagulation will d/w primary team. * SIADH etio unclear * Low potassium, will contribute to low sodium, but low mag and low k from lasix * Episodes of aflutter noted on the monitor * DM Plan: * Continue abx * Replace K and mag * Tolvaptan to correct hyponatremia * GI/DVT prophylaxis * Possible anticoagulation for aflutter episodes if no contraindication has to be checked with PMD * Resp alkalosis, vt reduced, patient likely could be extubated today. * See orders for detail. ISIDRO Alva <Luisito Alva P - Last Filed: 08/14/17 00:17> Results - Vital Signs Recent Vital Signs: Last Vital Signs Temp 98.3 F 08/13/17 16:47 Pulse 69 08/13/17 16:47 Resp 20 08/13/17 16:47 BP 116/70 08/13/17 16:47 Pulse Ox 100 08/13/17 16:47 - Labs Result Diagrams: 08/13/17 06:42 08/13/17 06:42 Labs: Laboratory Results - last 24 hr 08/08/17 08/08/17 08/08/17 16:16 16:16 16:16 WBC RBC Hgb Hct MCV MCH MCHC RDW Plt Count MPV Neut % (Auto) Lymph % (Auto) [place] % (Auto) Eos % (Auto) Baso % (Auto) Neut # (Auto) Lymph # (Auto) [place] # (Auto) Eos # (Auto) Baso # (Auto) Sodium Potassium Chloride Carbon Dioxide Anion Gap BUN Creatinine Est GFR ( Amer) Est GFR (Non-Af Amer) POC Glucose (mg/dL) Random Glucose Calcium Phosphorus Magnesium Total Bilirubin AST ALT Alkaline Phosphatase Total Protein Albumin Globulin Albumin/Globulin Ratio CSF Lyme Disease DNA Not detected CSF West Nile IgG Ab 0.67 Absolute Lymphs (Flow) % CD4 Cells Absolute CD4 Count T-Help/Suppress Ratio % CD8 Cells Absolute CD8 Count Lyme Specimen Source Csf Anti-NMDA Rec Method See note Anti-NMDA Technical Res See note Anti-NMDA Rec Interp See note Anti-NMDA Rec Comment See note Anti-NMDA Rec Reference See note 08/11/17 08/13/17 08/13/17 07:59 00:28 05:53 WBC RBC Hgb Hct MCV MCH MCHC RDW Plt Count MPV Neut % (Auto) Lymph % (Auto) [place] % (Auto) Eos % (Auto) Baso % (Auto) Neut # (Auto) Lymph # (Auto) [place] # (Auto) Eos # (Auto) Baso # (Auto) Sodium Potassium Chloride Carbon Dioxide Anion Gap BUN Creatinine Est GFR ( Amer) Est GFR (Non-Af Amer) POC Glucose (mg/dL) 122 H 147 H Random Glucose Calcium Phosphorus Magnesium Total Bilirubin AST ALT Alkaline Phosphatase Total Protein Albumin Globulin Albumin/Globulin Ratio CSF Lyme Disease DNA CSF West Nile IgG Ab Absolute Lymphs (Flow) 1048 % CD4 Cells 28 L Absolute CD4 Count 294 L T-Help/Suppress Ratio 0.45 L % CD8 Cells 62 H Absolute CD8 Count 649 Lyme Specimen Source Anti-NMDA Rec Method Anti-NMDA Technical Res Anti-NMDA Rec Interp Anti-NMDA Rec Comment Anti-NMDA Rec Reference 08/13/17 08/13/17 08/13/17 06:42 06:42 07:21 WBC 5.1 RBC 2.84 L Hgb 8.4 L Hct 25.0 L MCV 88.1 MCH 29.4 MCHC 33.4 RDW 17.1 H Plt Count 270 MPV 8.5 Neut % (Auto) 68.1 Lymph % (Auto) 27.0 [place] % (Auto) 4.5 Eos % (Auto) 0.1 Baso % (Auto) 0.3 Neut # (Auto) 3.5 Lymph # (Auto) 1.4 [place] # (Auto) 0.2 Eos # (Auto) 0.0 Baso # (Auto) 0.0 Sodium 138 Potassium 3.8 Chloride 96 L Carbon Dioxide 36 H Anion Gap 10 BUN 26 H Creatinine 1.1 Est GFR ( Amer) 59 Est GFR (Non-Af Amer) 49 POC Glucose (mg/dL) 153 H Random Glucose 152 H Calcium 8.5 L Phosphorus 3.6 Magnesium 1.7 Total Bilirubin 0.3 AST 31 ALT 16 Alkaline Phosphatase 73 Total Protein 6.8 Albumin 2.3 L Globulin 4.5 H Albumin/Globulin Ratio 0.5 L CSF Lyme Disease DNA CSF West Nile IgG Ab Absolute Lymphs (Flow) % CD4 Cells Absolute CD4 Count T-Help/Suppress Ratio % CD8 Cells Absolute CD8 Count Lyme Specimen Source Anti-NMDA Rec Method Anti-NMDA Technical Res Anti-NMDA Rec Interp Anti-NMDA Rec Comment Anti-NMDA Rec Reference 08/13/17 08/13/17 11:26 21:29 WBC RBC Hgb Hct MCV MCH MCHC RDW Plt Count MPV Neut % (Auto) Lymph % (Auto) [place] % (Auto) Eos % (Auto) Baso % (Auto) Neut # (Auto) Lymph # (Auto) [place] # (Auto) Eos # (Auto) Baso # (Auto) Sodium Potassium Chloride Carbon Dioxide Anion Gap BUN Creatinine Est GFR ( Amer) Est GFR (Non-Af Amer) POC Glucose (mg/dL) 95 118 H Random Glucose Calcium Phosphorus Magnesium Total Bilirubin AST ALT Alkaline Phosphatase Total Protein Albumin Globulin Albumin/Globulin Ratio CSF Lyme Disease DNA CSF West Nile IgG Ab Absolute Lymphs (Flow) % CD4 Cells Absolute CD4 Count T-Help/Suppress Ratio % CD8 Cells Absolute CD8 Count Lyme Specimen Source Anti-NMDA Rec Method Anti-NMDA Technical Res Anti-NMDA Rec Interp Anti-NMDA Rec Comment Anti-NMDA Rec Reference Attending/Attestation - Attestation I have personally seen and examined this patient.: Yes I have fully participated in the care of the patient.: Yes I have reviewed all pertinent clinical information: Yes Notes (Text): 08/14/17 00:16 Patient seen during ICU consultation.
[2017-08-03] MEDS: Albuterol-Ipratrop 3 mg / 0.5 (3 ml) UD INH SCH ×4 (01:23→21:04)
--- NOTE | 2017-08-03 02:10 | CON ---
NEPHROLOGY CONSULTATION DATE: HISTORY OF PRESENT ILLNESS: A 72-year-old female with past medical history of hypertension, diabetes, CHF with severe systolic dysfunction, status post mitral valve replacement, AFib, CAD, status post recent stent, COPD, rheumatoid arthritis, and recent admission for left knee septic arthritis; presented to ED after having 3 seizure episodes in rehab; Nephrology being consulted for hyponatremia. History taken mainly from medical record as the patient is currently intubated and nonverbal. The patient was reportedly completely unresponsive in ED and was intubated for airway protection. The patient reportedly has been having fluctuations in mental status. The patient was given 1 L normal saline bolus in ED. Not given ____ hospital course complicated by an episode of atrial flutter, which returned spontaneously to sinus rhythm. The patient also noted for not moving her right extremities. The patient was on gentamicin, Ancef, and rifampin while at rehab facility for her septic arthritis. All of those currently been discontinued and the patient started on Zosyn. PAST MEDICAL HISTORY: As above. The patient underwent washout and debridement of affected knee earlier this month. Also found to have osteomyelitis affecting knee. The patient also had recent admission for CHF exacerbation with echo done recently showing severe systolic dysfunction with multiple areas of hypokinesis/dyskinesis. Also with significant diastolic dysfunction. Also showing flattened septum consistent with RV pressure overload and pulmonary artery pressure estimated at 50 to 60 mmHg. FAMILY HISTORY: Unobtainable. SOCIAL HISTORY: Unobtainable. REVIEW OF SYSTEMS: Unobtainable except what is in medical record. PHYSICAL EXAMINATION: VITAL SIGNS: This evening, blood pressure 89/51, heart rate 87, respirations 19, temperature 99.1, T-Max 102.4. O2 saturation 100% on ventilator. GENERAL: The patient opening eyes spontaneously with spontaneous movements and reacting to pain, however, not responding to verbal stimuli. HEENT: Moist mucous membranes. No icterus. No cervical lymphadenopathy. RESPIRATORY: Mild left basilar rales, otherwise clear to auscultation on right. No respiratory distress. Not tachypneic. CARDIOVASCULAR: Heart sounds S1 and S2 normal. No murmurs. No gallops. No rubs. PMI displaced laterally to axilla. GASTROINTESTINAL: Abdomen soft, nontender, nondistended. GENITOURINARY: Castañeda in place, otherwise bladder nondistended. EXTREMITIES: Moderate edema of dependent areas. MUSCULOSKELETAL: Left knee swollen and warm compared to right, also tender when moved. SKIN: Warm. No cyanosis. PSYCHIATRIC: Not agitated. LABORATORY DATA: Labs this morning CBC: WBC 7.0, hemoglobin 9.6, hematocrit 28.6, platelets 211. Chemistry panel: Sodium 121, potassium 3.6, chloride 82, bicarb 27, BUN 10, creatinine 0.6, glucose 108, calcium 8.0, phosphorus 2.3, magnesium 1.7. ProBNP 63521. Albumin 2.8. Urine studies, urine sodium 118, urine creatinine 21.4. Osmolality 404. Blood gas from this morning, pH 7.68, pCO2 of 23, pO2 of 173. IMAGING: Chest x-ray directly visualized showing increased pulmonary vascular congestion. ASSESSMENT AND PLAN: 1. Hyponatremia in the setting of severe systolic dysfunction, etiology is likely due to decreased effective arterial blood volume with ensuing increased antidiuretic hormone, cannot rule out a component of syndrome of inappropriate secretion of antidiuretic hormone either. For now, the most effective therapy to improve hyponatremia will be to block activity of anti-diuretic hormone with tolvaptan. We will give 1 dose of tolvaptan 15 mg and reassess this evening. The patient is on rifampin, which can decrease the levels of tolvaptan, so may need to be given higher dose. Goal is for increase of serum sodium not more than 8 mEq in 24 hour period. 2. Congestive heart failure exacerbation. The patient is likely with chronic volume overload, will eventually benefit from sustained diuresis once blood pressures are stable. We would start IV Lasix 20 mg q.8 to 12 hours, will also help correct hyponatremia. 3. Metabolic alkalosis seen on initial arterial blood gas, likely due to being on loop diuretic, would benefit from being on Aldactone, however, this can worsen hyponatremia, so should hold off for now. Thank you for this referral. We will be following closely. Eugene Eddy MD
[2017-08-03] MEDS: Piperacill/Tazo 3.375gm in Dex 3.375 GM/50 ML BAG IVPB SCH ×2 (03:04→10:24)
[2017-08-03] MEDS ORDERED: Pantoprazole 40 mg Susp UD PO SCH (06:00)
[2017-08-03 06:28] LABS: BASO % 0.6 % (0.0-2.0); EOS % 0.2 % (0.0-4.0); HEMOGLOBIN 8.3 g/dL (11.0-16.0); LYMPH % 37.9 % (20.0-40.0); MEAN CELL VOLUME 86.9 fL (81.0-99.0); MEAN CORPUSCULAR HEMOGLOBIN 29.8 pg (27.0-31.0); MEAN CORPUSCULAR HGB CONC 34.3 g/dL (33.0-37.0); MEAN PLATELET VOLUME 8.3 fL (7.2-11.7); MONO # 0.5 K/uL (0.0-0.8); NEUT # 2.8 K/uL (1.8-7.0); NEUT % 52.3 % (50.0-75.0); RBC 2.8 Mil/uL (3.80-5.20); WHITE BLOOD COUNT 5.3 K/uL (4.8-10.8)
[2017-08-03] MEDS ORDERED: Dextrose 50% SYRINGE Inj (50 ml) IV STA (06:31)
[2017-08-03] MEDS ORDERED: Dextrose 50% SYRINGE Inj (50 ml) ONE (06:33)
[2017-08-03 06:56] LABS: ALB/GLOB RATIO 0.6 (1.0-2.1); ALBUMIN 2.4 g/dL (3.5-5.0); ALT/SGPT 13 U/L (9-52); AST/SGOT 37 U/L (14-36); BLOOD UREA NITROGEN 11 mg/dL (7-17); CALCIUM 7.5 mg/dl (8.6-10.4); GFR AFRICAN-AMERICAN > 60; GFR NON-AFRICAN AMERICAN > 60; MAGNESIUM 1.6 mg/dL (1.6-2.3)
[2017-08-03 07:10] LABS: ABG ALLEN TEST POS; ARTERIAL BLOOD GAS HCO3 28.1 mmol/L (21-28); ARTERIAL BLOOD GAS HEMOGLOBIN 12.8 g/dL (11.7-17.4); ARTERIAL BLOOD GAS O2 SAT 99.9 % (95-98); ARTERIAL BLOOD GAS PCO2 36 mm/Hg (35-45); ARTERIAL BLOOD GAS PH 7.49 (7.35-7.45); ARTERIAL BLOOD GAS PO2 163 mm/Hg (80-100); ARTERIAL BLOOD GAS TCO2 28.5 mmol/L (22-28)
--- NOTE | 2017-08-03 07:49 | CP.PCM.PN ---
Subjective - Date & Time of Evaluation Date of Evaluation: 08/03/17 Time of Evaluation: 07:45 - Subjective Subjective: Medical Attending Note: Patient seen and examined at bedside. Patient is off sedation. Patient is intubated on vent. Patient has mittens and prevalon boots. patient is gesturing towards her tube to remove it. Unable to ROS secondary to clinical condition. Objective - Vital Signs/Intake and Output Vital Signs (last 24 hours): Temp Pulse Resp BP Pulse Ox 98.5 F 75 12 95/49 L 100 08/02/17 20:00 08/02/17 22:07 08/02/17 22:07 08/02/17 22:07 08/02/17 22:07 Intake and Output: 08/03/17 08/03/17 06:59 18:59 Intake Total 562 Output Total 580 Balance -18 - Medications Medications: Current Medications Albuterol/Ipratropium (Duoneb 3 Mg/0.5 Mg (3 Ml) Ud) 3 ml INH RQ6 [facility] Last Admin: 08/03/17 01:23 Dose: 3 ml Heparin Sodium (Porcine) (Heparin) 5,000 units SC Q12 [facility] Last Admin: 08/02/17 22:28 Dose: 5,000 units Piperacillin Sod/Tazobactam Sod (Zosyn 3.375 Gm Iv Premix) 3.375 gm in 50 mls @ 100 mls/hr IVPB Q6H [facility] Last Admin: 08/03/17 03:04 Dose: 100 mls/hr Sodium Chloride (Sodium Chloride 0.9%) 1,000 mls @ 42 mls/hr IV .[id number] [facility] Last Admin: 08/02/17 18:38 Dose: 42 mls/hr Lacosamide (Vimpat) 100 mg PO BID [facility] Last Admin: 08/02/17 18:39 Dose: 100 mg Lactobacillus Acidophilus (Bacid Acidophilus) 1 cap PO BID [facility] Last Admin: 08/02/17 18:47 Dose: 1 cap Losartan Potassium (Cozaar) 25 mg PO DAILY [facility] Last Admin: 08/02/17 10:41 Dose: 25 mg Metoprolol Tartrate (Lopressor) 50 mg PO BID [facility] Last Admin: 08/02/17 18:48 Dose: Not Given Pantoprazole Sodium (Protonix Susp) 40 mg PO 0600 [facility] Last Admin: 08/03/17 06:14 Dose: 40 mg Pneumococcal Polyvalent Vaccine (Pneumovax 23 Vaccine) 0.5 ml SC .ONCE ONE Stop: 08/04/17 10:01 Rifampin (Rifampin Cap) 300 mg PO TID [facility] Last Admin: 08/02/17 18:48 Dose: 300 mg Rosuvastatin Calcium (Crestor) 2.5 mg PO HS [facility] Last Admin: 08/02/17 22:28 Dose: 2.5 mg - Labs Labs: 08/03/17 06:21 08/03/17 06:22 PT 14.6 SECONDS (9.7-12.2) H 08/01/17 19:55 INR 1.3 08/01/17 19:55 APTT 47 SECONDS (21-34) H 08/01/17 19:55 - Constitutional Appears: Chronically Ill - Head Exam Head Exam: NORMAL INSPECTION - Eye Exam Eye Exam: EOMI, Normal appearance, PERRL. absent: Nystagmus, Scleral icterus Pupil Exam: PERRL - ENT Exam ENT Exam: Mucous Membranes Moist - Respiratory Exam Respiratory Exam: Decreased Breath Sounds, Rhonchi (+left base). absent: Wheezes, Respiratory Distress Additional comments: intubated on vent - Cardiovascular Exam Cardiovascular Exam: REGULAR RHYTHM, +S1, +S2 Additional comments: healed sterntomy scar - GI/Abdominal Exam GI & Abdominal Exam: Distended, Soft, Normal Bowel Sounds. absent: Firm, Guarding, Rigid, Tenderness, Rebound - Extremities Exam Extremities Exam: absent: Pedal Edema, Tenderness Additional comments: right knee: no ecchymoses, no bolottement Left knee: swelling noted around the patella, has two stitches, patient appears to wince in pain - Neurological Exam Neurological Exam: Alert, Awake Additional comments: negative babinski bilateral Patient is able to move both upper extremities and started to move her lower extremities Patient is able to turn her head side to side No apparent facial droop - Skin Skin Exam: Dry, Normal Color, Warm Assessment and Plan (1) New onset seizure Assessment & Plan: 08/01: per review of ED triage note: Via [facility] from [facility], prior notification of resident experiencing ''jerky movements few secs for a total of 3 episodes''; seizure-like activity witnessed by ALS, treated with ATIVAN 2MG IV GIVEN VIA PICC LINE TO RT ARM PER REPORT GIVEN; on NRB 100%, EAH=[id number] 08/01: Per review of ED note: In ambulance, given Ativan 2mg on route, NIHSS: 29 (noted for dysarthria and profound neglect does not recognize own hand or oreitns to one side. Code stroke 08/01/17 GCS: 4 ED attempted to reverse with Flumazenil given patient appeared comatose Intubated in the ED for airway protection with etomidate Factors for seizure activity: * Precipitating factors: hyponatremia, hypokalemia, hypomagnesium * Antibiotic side effect: gentamicin (seizure, confusion, lethargy per uptodate) , rifampin (fatigue, drowsiness, confusion), Cefazolin (seizure) * pain medication: tramadol Imaging: CT head (08/01/17): nonspecific white matter changes. Acute infarction may be CT occult within first 24 hours. If a focal deficit persists, consider for further evaulation. Atherosclerotic disease of intracranial arteries. probable chronic lacunar infarcts within basal ganglia CT Head and neck (08/01/17): no flow limiting cervical cartoid artery stenosis or vessel occlusion. Patent vertebral arteries CT Head (08/02/17): no evidence of acute infarct. Chronic microvascular white matter ischemic change. otherwise unremarkable. Neurology (Dr. Cornejo) on board-->help appreciated * F/u EEG * D/c Cerebryx and Keppra secondary to worsening hyponatremia--Start Vimpat 100mg PO Q12H Nephrology (Dr. Eddy) on board-->help appreciated * Seen patient last admission * Note: SIADH PICC line (had been placed 07/24/17) per EMR Status: Acute (2) Hypokalemia Assessment & Plan: Low potassium will need to be replete today Status: Acute (3) Hyponatremia Assessment & Plan: Nephrology (Dr. Eddy) on the case-->help appreciated * SIADH * Na+: 121-->123-->121-->122-->124 * 08/02 Urine Osmolality: 497, Urine random sodium:15 Imaging: * CT head (08/01/17): nonspecific white matter changes. Acute infarction may be CT occult within first 24 hours. If a focal deficit persists, consider for further evaulation. Atherosclerotic disease of intracranial arteries. probable chronic lacunar infarcts within basal ganglia * CT Head and neck (08/01/17): no flow limiting cervical cartoid artery stenosis or vessel occlusion. Patent vertebral arteries * CT Head (08/02/17): no evidence of acute infarct. Chronic microvascular white matter ischemic change. otherwise unremarkable. 08/02 (12:45): Samsca 15mg PO X1 08/02 (00:19): Samsca 15mg PO X1 Status: Acute (4) SIADH (syndrome of inappropriate ADH production) Assessment & Plan: Nephrology (Dr. Eddy) on the case-->help appreciated * SIADH * Na+: 121-->123-->121-->122-->124 * 08/02 Urine Osmolality: 497, Urine random sodium:15 * Check TSH, Prolactin Imaging: * CT head (08/01/17): nonspecific white matter changes. Acute infarction may be CT occult within first 24 hours. If a focal deficit persists, consider for further evaulation. Atherosclerotic disease of intracranial arteries. probable chronic lacunar infarcts within basal ganglia * CT Head and neck (08/01/17): no flow limiting cervical cartoid artery stenosis or vessel occlusion. Patent vertebral arteries * CT Head (08/02/17): no evidence of acute infarct. Chronic microvascular white matter ischemic change. otherwise unremarkable. * CT Chest (08/02/17): small right pleural effusion and right lower lobe subsegmental atelectasis. Opacity seen at right lung base on earlier chest radiograph of the same date was likely artifactual due to overlying medical equipmen 08/02 (12:45): Samsca 15mg PO X1 08/02 (00:19): Samsca 15mg PO X1 Status: Acute (5) Septic arthritis Assessment & Plan: From last admission: on 07/19/17: Left knee arthroscopic. #1 I&D. #2 extensive synovectomy. #3 synovial biopsy and culture acquisition. #4 partial medial and lateral menisectomies. #5 chondroplasty trochlea Post-Operative Diagnoses: Left knee #1 septic arthritis. #2 inflammatory synovitis. #3 crystal arthropathy/ pseudogout. #4 deg/complex medial meniscal tear. #5 deg/ complex lateral meniscal tear. #6 chondromalacia trochlea/MFC/ LFC, early DJD patella 07/19/17: MSSA in Left knee and left Synovial sample 07/16/17: Blood culture: no growth after 5 days 07/23/17: Blood culture: no growth after 5 days patient was discharged on Ancef, Rifampin, and gentamicin. MICS available. This admission: D/C: Ancef and Gentamicin given seizures Zosyn 3.375 I V Q6H (Active since 08/02/17) Rifampin 300mg PO TID (active since 08/02/17) Status: Chronic (6) H/O mitral valve replacement Assessment & Plan: * Echocardiogram (08/02/17): No ASD seen. * Echocardiogram (07/22/17): limited study, vegetation on MV cannot be excluded. Rec. Ubaldo to define MV/Calcifed mitral ring * Echocardiogram (07/01/17): systolic function is severely impaired. Anterior and septa; aldridge reveal dyskinesis with wall thinning. (indicative of prior transmural NC), inferior wall is severely hypokinestic, lateral wall is mod to severely hypokinetic, Left atrium is moderately dilated, right atrium is moderately dilated, mild concentric left ventricular hypertrophy, mild mitral valve stenosis, * Cardiac cath: severe multivessel coronary artery disease, severe left ventricular systolic dysfunction (2017) * S/p CABG * Prosthetic valve Status: Chronic (7) Diabetes mellitus Assessment & Plan: [id number]: 5.1 Controlled Accuchecks Q6H Status: Chronic (8) Hypertension Assessment & Plan: Lopressor 50mg PO BID Crestor 2.5mg POqHS Cozaar 25mg PO daily Status: Chronic (9) Coronary artery disease Status: Chronic (10) Severe systolic congestive heart failure Assessment & Plan: On beta-meredith, arb, statin On last admission recommends for outpatient AICD by Dr Rowan Status: Chronic (11) Atelectasis Assessment & Plan: CT Chest (08/02/17): small right pleural effusion and right lower lobe subsegmental atelectasis. Opacity seen at right lung base on earlier chest radiograph of the same date was likely artifactual due to overlying medical equipment Status: Acute (12) Prophylactic measure Assessment & Plan: Heparin 5000 units [id number] protonix 40mg PO daily Bacid 1 cap PO BID Please note if need additional consults: Dr. Vandana Rowan (clinical aide) has done stress, cath, and saw patient last admission Dr. Jannie Avina (ID) was managing septic MSSA arthritis Status: Acute
[2017-08-03] MEDS ORDERED: Potassium Chloride 20 mEq/15 ml LIQ UD PO ONE (09:15)
[2017-08-03] MEDS ORDERED: Metoprolol 1 mg/ml Inj IVP ONE (09:19)
--- NOTE | 2017-08-03 09:23 | CP.CCUPN ---
CCU Subjective - Physician Review Subjective (Free Text): Events overnight reviewed 08/03/17 09:20 Critical Care Time Spent (in minutes): 35 CCU Objective - Vital Signs / Intake & Output Intake and Output (Last 8hrs): Intake & Output 08/02/17 08/03/17 08/03/17 22:59 06:59 14:59 Intake Total 1197 365 Output Total 985 450 Balance 212 -85 Weight 135 lb 0.8 oz Intake: Intake, IV Amount 1197 365 R PICC line 1197 365 Output: Urine 985 450 Urethral (Castañeda) 985 450 - Physical Exam Head: Positive for: Atraumatic, Normocephalic Mouth: Positive for: Moist Mucous Membranes Neck: Positive for: Normal Range of Motion Respiratory/Chest: Positive for: Clear to Auscultation, Good Air Exchange Cardiovascular: Positive for: Normal S1, S2 Abdomen: Positive for: Normal Bowel Sounds. Negative for: Tenderness, Distention Upper Extremity: Positive for: Normal Inspection Lower Extremity: Positive for: Normal Inspection - Medications Active Medications: Active Medications Generic Name Dose Route Start Last Admin Trade Name Freq PRN Reason Stop Dose Admin Albuterol/Ipratropium 3 ml 08/02/17 08:00 08/03/17 08:10 Duoneb 3 Mg/0.5 Mg (3 Ml) Ud INH 3 ml RQ6 KODAK Administration Furosemide 20 mg 08/03/17 09:19 Lasix IVP 08/03/17 09:20 STAT STA Heparin Sodium (Porcine) 5,000 units 08/02/17 10:00 08/02/17 22:28 Heparin SC 5,000 units Q12 KODAK Administration Piperacillin Sod/Tazobactam Sod 3.375 gm in 50 mls @ 100 mls/hr 08/02/17 10: 00 08/03/17 03:04 Zosyn 3.375 Gm Iv Premix IVPB 100 mls/hr Q6H KODAK Administration Sodium Chloride 1,000 mls @ 42 mls/hr 08/02/17 18:00 08/02/17 18:38 Sodium Chloride 0.9% IV 42 mls/hr .[id number] KODAK Administration Potassium Chloride 10 meq in 100 mls @ 100 mls/hr 08/03/17 09:30 Potassium Chloride 10 Meq/100 Ml IVPB 08/03/17 13:29 Q1H KODAK Lacosamide 100 mg 08/02/17 18:00 08/02/17 18:39 Vimpat PO 100 mg BID KODAK Administration Lactobacillus Acidophilus 1 cap 08/02/17 10:00 08/02/17 18:47 Bacid Acidophilus PO 1 cap BID KODAK Administration Losartan Potassium 25 mg 08/02/17 10:00 08/02/17 10:41 Cozaar PO 25 mg DAILY KODAK Administration Metoprolol Tartrate 50 mg 08/02/17 10:00 08/02/17 18:48 Lopressor PO Not Given BID [facility] Metoprolol Tartrate 5 mg 08/03/17 09:15 Lopressor IVP Q6H KODAK Pantoprazole Sodium 40 mg 08/03/17 10:00 Protonix Inj IVP Q12 [facility] Pneumococcal Polyvalent Vaccine 0.5 ml 08/04/17 10:00 Pneumovax 23 Vaccine SC 08/04/17 10:01 .ONCE ONE Potassium Chloride 40 meq 08/03/17 09:15 Potassium Chloride Oral Soln PO 08/03/17 09:16 ONCE ONE Rifampin 300 mg 08/02/17 10:00 08/02/17 18:48 Rifampin Cap PO 300 mg TID KODAK Administration Rosuvastatin Calcium 40 mg 08/03/17 08:34 Crestor PO HS [facility] - Patient Studies Lab Studies: Lab Studies 08/03/17 08/03/17 08/03/17 Range/Units 07:25 07:00 06:24 WBC (4.8-10.8) K/uL RBC (3.80-5.20) Mil/uL Hgb (11.0-16.0) g/dL Hct (34.0-47.0) % MCV (81.0-99.0) fL MCH (27.0-31.0) pg MCHC (33.0-37.0) g/dL RDW (11.5-14.5) % Plt Count (130-400) K/uL MPV (7.2-11.7) fL Neut % (Auto) (50.0-75.0) % Lymph % (Auto) (20.0-40.0) % Hinds % (Auto) (0.0-10.0) % Eos % (Auto) (0.0-4.0) % Baso % (Auto) (0.0-2.0) % Neut # (Auto) (1.8-7.0) K/uL Lymph # (Auto) (1.0-4.3) K/uL Hinds # (Auto) (0.0-0.8) K/uL Eos # (Auto) (0.0-0.7) K/uL Baso # (Auto) (0.0-0.2) K/uL Puncture Site Rr pCO2 36 (35-45) mm/Hg pO2 163 H (80-100) mm/Hg HCO3 28.1 H (21-28) mmol/L ABG pH 7.49 H (7.35-7.45) ABG Total CO2 28.5 H (22-28) mmol/L ABG O2 Saturation 99.9 H (95-98) % ABG Base Excess 4.1 H (-2.0-3.0) mmol/L ABG Hemoglobin 12.8 (11.7-17.4) g/dL ABG Carboxyhemoglobin 2.2 H (0.5-1.5) % POC ABG HHb (Measured) 0.1 (0.0-5.0) % ABG Methemoglobin 1.5 (0.0-3.0) % Reji Test Pos A-a O2 Difference 6.0 mm/Hg Respiratory Index 0 Hgb O2 Saturation 96.2 (95.0-98.0) % Vent Mode Prvc Mechanical Rate 12 FiO2 30.0 % Tidal Volume 500 PEEP 5 Sodium (132-148) mmol/L Potassium (3.6-5.2) mmol/L Chloride (98-107) mmol/L Carbon Dioxide (22-30) mmol/L Anion Gap (10-20) BUN (7-17) mg/dL Creatinine (0.7-1.2) mg/dL Est GFR ( Amer) Est GFR (Non-Af Amer) POC Glucose (mg/dL) 114 H 56 L (65-110) mg/dL Random Glucose (65-105) mg/dL Calcium (8.6-10.4) mg/dl Phosphorus (2.5-4.5) mg/dL Magnesium (1.6-2.3) mg/dL Total Bilirubin (0.2-1.3) mg/dL AST (14-36) U/L ALT (9-52) U/L Alkaline Phosphatase (38-126) U/L NT-Pro-B Natriuret Pep (0-900) pg/mL Total Protein (6.3-8.3) g/dL Albumin (3.5-5.0) g/dL Globulin (2.2-3.9) gm/dL Albumin/Globulin Ratio (1.0-2.1) Triglycerides (0-149) mg/dL Cholesterol (0-199) mg/dL LDL Cholesterol Direct (0-129) mg/dL HDL Cholesterol (30-70) mg/dL Urine Osmolality (300-1000) mosm/kg Ur Random Sodium mmol/L Phenytoin (10-20) ug/mL Influenza Typ A,B (EIA) (NEGATIVE) 08/03/17 08/03/17 08/03/17 Range/Units 06:22 06:22 06:22 WBC (4.8-10.8) K/uL RBC (3.80-5.20) Mil/uL Hgb (11.0-16.0) g/dL Hct (34.0-47.0) % MCV (81.0-99.0) fL MCH (27.0-31.0) pg MCHC (33.0-37.0) g/dL RDW (11.5-14.5) % Plt Count (130-400) K/uL MPV (7.2-11.7) fL Neut % (Auto) (50.0-75.0) % Lymph % (Auto) (20.0-40.0) % Hinds % (Auto) (0.0-10.0) % Eos % (Auto) (0.0-4.0) % Baso % (Auto) (0.0-2.0) % Neut # (Auto) (1.8-7.0) K/uL Lymph # (Auto) (1.0-4.3) K/uL Hinds # (Auto) (0.0-0.8) K/uL Eos # (Auto) (0.0-0.7) K/uL Baso # (Auto) (0.0-0.2) K/uL Puncture Site pCO2 (35-45) mm/Hg pO2 (80-100) mm/Hg HCO3 (21-28) mmol/L ABG pH (7.35-7.45) ABG Total CO2 (22-28) mmol/L ABG O2 Saturation (95-98) % ABG Base Excess (-2.0-3.0) mmol/L ABG Hemoglobin (11.7-17.4) g/dL ABG Carboxyhemoglobin (0.5-1.5) % POC ABG HHb (Measured) (0.0-5.0) % ABG Methemoglobin (0.0-3.0) % Reji Test A-a O2 Difference mm/Hg Respiratory Index Hgb O2 Saturation (95.0-98.0) % Vent Mode Mechanical Rate FiO2 % Tidal Volume PEEP Sodium 124 L (132-148) mmol/L Potassium 3.3 L (3.6-5.2) mmol/L Chloride 88 L (98-107) mmol/L Carbon Dioxide 31 H (22-30) mmol/L Anion Gap 9 L (10-20) BUN 11 (7-17) mg/dL Creatinine 0.8 (0.7-1.2) mg/dL Est GFR ( Amer) > 60 Est GFR (Non-Af Amer) > 60 POC Glucose (mg/dL) 65 (65-110) mg/dL Random Glucose 69 (65-105) mg/dL Calcium 7.5 L (8.6-10.4) mg/dl Phosphorus 3.2 (2.5-4.5) mg/dL Magnesium 1.6 (1.6-2.3) mg/dL Total Bilirubin 0.5 (0.2-1.3) mg/dL AST 37 H (14-36) U/L ALT 13 (9-52) U/L Alkaline Phosphatase 97 (38-126) U/L NT-Pro-B Natriuret Pep (0-900) pg/mL Total Protein 6.8 (6.3-8.3) g/dL Albumin 2.4 L (3.5-5.0) g/dL Globulin 4.4 H (2.2-3.9) gm/dL Albumin/Globulin Ratio 0.6 L (1.0-2.1) Triglycerides (0-149) mg/dL Cholesterol (0-199) mg/dL LDL Cholesterol Direct (0-129) mg/dL HDL Cholesterol (30-70) mg/dL Urine Osmolality (300-1000) mosm/kg Ur Random Sodium mmol/L Phenytoin < 3.0 L (10-20) ug/mL Influenza Typ A,B (EIA) (NEGATIVE) 08/03/17 08/02/17 08/02/17 Range/Units 06:21 23:41 19:02 WBC 5.3 (4.8-10.8) K/uL RBC 2.80 L (3.80-5.20) Mil/uL Hgb 8.3 L (11.0-16.0) g/dL Hct 24.3 L (34.0-47.0) % MCV 86.9 (81.0-99.0) fL MCH 29.8 (27.0-31.0) pg MCHC 34.3 (33.0-37.0) g/dL RDW 17.0 H (11.5-14.5) % Plt Count 178 (130-400) K/uL MPV 8.3 (7.2-11.7) fL Neut % (Auto) 52.3 (50.0-75.0) % Lymph % (Auto) 37.9 (20.0-40.0) % Hinds % (Auto) 9.0 (0.0-10.0) % Eos % (Auto) 0.2 (0.0-4.0) % Baso % (Auto) 0.6 (0.0-2.0) % Neut # (Auto) 2.8 (1.8-7.0) K/uL Lymph # (Auto) 2.0 (1.0-4.3) K/uL Hinds # (Auto) 0.5 (0.0-0.8) K/uL Eos # (Auto) 0.0 (0.0-0.7) K/uL Baso # (Auto) 0.0 (0.0-0.2) K/uL Puncture Site pCO2 (35-45) mm/Hg pO2 (80-100) mm/Hg HCO3 (21-28) mmol/L ABG pH (7.35-7.45) ABG Total CO2 (22-28) mmol/L ABG O2 Saturation (95-98) % ABG Base Excess (-2.0-3.0) mmol/L ABG Hemoglobin (11.7-17.4) g/dL ABG Carboxyhemoglobin (0.5-1.5) % POC ABG HHb (Measured) (0.0-5.0) % ABG Methemoglobin (0.0-3.0) % Reji Test A-a O2 Difference mm/Hg Respiratory Index Hgb O2 Saturation (95.0-98.0) % Vent Mode Mechanical Rate FiO2 % Tidal Volume PEEP Sodium 122 L (132-148) mmol/L Potassium 3.6 (3.6-5.2) mmol/L Chloride 85 L (98-107) mmol/L Carbon Dioxide 30 (22-30) mmol/L Anion Gap 10 (10-20) BUN 11 (7-17) mg/dL Creatinine 0.8 (0.7-1.2) mg/dL Est GFR ( Amer) > 60 Est GFR (Non-Af Amer) > 60 POC Glucose (mg/dL) 72 (65-110) mg/dL Random Glucose 90 (65-105) mg/dL Calcium 7.5 L (8.6-10.4) mg/dl Phosphorus (2.5-4.5) mg/dL Magnesium (1.6-2.3) mg/dL Total Bilirubin (0.2-1.3) mg/dL AST (14-36) U/L ALT (9-52) U/L Alkaline Phosphatase (38-126) U/L NT-Pro-B Natriuret Pep (0-900) pg/mL Total Protein (6.3-8.3) g/dL Albumin (3.5-5.0) g/dL Globulin (2.2-3.9) gm/dL Albumin/Globulin Ratio (1.0-2.1) Triglycerides (0-149) mg/dL Cholesterol (0-199) mg/dL LDL Cholesterol Direct (0-129) mg/dL HDL Cholesterol (30-70) mg/dL Urine Osmolality (300-1000) mosm/kg Ur Random Sodium mmol/L Phenytoin (10-20) ug/mL Influenza Typ A,B (EIA) (NEGATIVE) 08/02/17 08/02/17 08/02/17 Range/Units 19:02 18:49 11:45 WBC (4.8-10.8) K/uL RBC (3.80-5.20) Mil/uL Hgb (11.0-16.0) g/dL Hct (34.0-47.0) % MCV (81.0-99.0) fL MCH (27.0-31.0) pg MCHC (33.0-37.0) g/dL RDW (11.5-14.5) % Plt Count (130-400) K/uL MPV (7.2-11.7) fL Neut % (Auto) (50.0-75.0) % Lymph % (Auto) (20.0-40.0) % Hinds % (Auto) (0.0-10.0) % Eos % (Auto) (0.0-4.0) % Baso % (Auto) (0.0-2.0) % Neut # (Auto) (1.8-7.0) K/uL Lymph # (Auto) (1.0-4.3) K/uL Hinds # (Auto) (0.0-0.8) K/uL Eos # (Auto) (0.0-0.7) K/uL Baso # (Auto) (0.0-0.2) K/uL Puncture Site pCO2 (35-45) mm/Hg pO2 (80-100) mm/Hg HCO3 (21-28) mmol/L ABG pH (7.35-7.45) ABG Total CO2 (22-28) mmol/L ABG O2 Saturation (95-98) % ABG Base Excess (-2.0-3.0) mmol/L ABG Hemoglobin (11.7-17.4) g/dL ABG Carboxyhemoglobin (0.5-1.5) % POC ABG HHb (Measured) (0.0-5.0) % ABG Methemoglobin (0.0-3.0) % Reji Test A-a O2 Difference mm/Hg Respiratory Index Hgb O2 Saturation (95.0-98.0) % Vent Mode Mechanical Rate FiO2 % Tidal Volume PEEP Sodium (132-148) mmol/L Potassium (3.6-5.2) mmol/L Chloride (98-107) mmol/L Carbon Dioxide (22-30) mmol/L Anion Gap (10-20) BUN (7-17) mg/dL Creatinine (0.7-1.2) mg/dL Est GFR ( Amer) Est GFR (Non-Af Amer) POC Glucose (mg/dL) 95 133 H (65-110) mg/dL Random Glucose (65-105) mg/dL Calcium (8.6-10.4) mg/dl Phosphorus (2.5-4.5) mg/dL Magnesium (1.6-2.3) mg/dL Total Bilirubin (0.2-1.3) mg/dL AST (14-36) U/L ALT (9-52) U/L Alkaline Phosphatase (38-126) U/L NT-Pro-B Natriuret Pep (0-900) pg/mL Total Protein (6.3-8.3) g/dL Albumin (3.5-5.0) g/dL Globulin (2.2-3.9) gm/dL Albumin/Globulin Ratio (1.0-2.1) Triglycerides (0-149) mg/dL Cholesterol (0-199) mg/dL LDL Cholesterol Direct (0-129) mg/dL HDL Cholesterol (30-70) mg/dL Urine Osmolality 497 (300-1000) mosm/kg Ur Random Sodium 15 mmol/L Phenytoin (10-20) ug/mL Influenza Typ A,B (EIA) (NEGATIVE) 08/02/17 08/02/17 08/02/17 Range/Units 09:05 08:55 06:30 WBC (4.8-10.8) K/uL RBC (3.80-5.20) Mil/uL Hgb (11.0-16.0) g/dL Hct (34.0-47.0) % MCV (81.0-99.0) fL MCH (27.0-31.0) pg MCHC (33.0-37.0) g/dL RDW (11.5-14.5) % Plt Count (130-400) K/uL MPV (7.2-11.7) fL Neut % (Auto) (50.0-75.0) % Lymph % (Auto) (20.0-40.0) % Hinds % (Auto) (0.0-10.0) % Eos % (Auto) (0.0-4.0) % Baso % (Auto) (0.0-2.0) % Neut # (Auto) (1.8-7.0) K/uL Lymph # (Auto) (1.0-4.3) K/uL Hinds # (Auto) (0.0-0.8) K/uL Eos # (Auto) (0.0-0.7) K/uL Baso # (Auto) (0.0-0.2) K/uL Puncture Site pCO2 (35-45) mm/Hg pO2 (80-100) mm/Hg HCO3 (21-28) mmol/L ABG pH (7.35-7.45) ABG Total CO2 (22-28) mmol/L ABG O2 Saturation (95-98) % ABG Base Excess (-2.0-3.0) mmol/L ABG Hemoglobin (11.7-17.4) g/dL ABG Carboxyhemoglobin (0.5-1.5) % POC ABG HHb (Measured) (0.0-5.0) % ABG Methemoglobin (0.0-3.0) % Reji Test A-a O2 Difference mm/Hg Respiratory Index Hgb O2 Saturation (95.0-98.0) % Vent Mode Mechanical Rate FiO2 % Tidal Volume PEEP Sodium 121 L (132-148) mmol/L Potassium 3.6 (3.6-5.2) mmol/L Chloride 82 L (98-107) mmol/L Carbon Dioxide 27 (22-30) mmol/L Anion Gap 15 (10-20) BUN 10 (7-17) mg/dL Creatinine 0.6 L (0.7-1.2) mg/dL Est GFR ( Amer) > 60 Est GFR (Non-Af Amer) > 60 POC Glucose (mg/dL) 108 (65-110) mg/dL Random Glucose 108 H (65-105) mg/dL Calcium 8.0 L (8.6-10.4) mg/dl Phosphorus 2.3 L (2.5-4.5) mg/dL Magnesium 1.7 (1.6-2.3) mg/dL Total Bilirubin 0.6 (0.2-1.3) mg/dL AST 35 (14-36) U/L ALT < 6 L (9-52) U/L Alkaline Phosphatase 144 H (38-126) U/L NT-Pro-B Natriuret Pep 12164 H (0-900) pg/mL Total Protein 7.9 (6.3-8.3) g/dL Albumin 2.8 L (3.5-5.0) g/dL Globulin 5.1 H (2.2-3.9) gm/dL Albumin/Globulin Ratio 0.5 L (1.0-2.1) Triglycerides 116 D (0-149) mg/dL Cholesterol 162 (0-199) mg/dL LDL Cholesterol Direct 128 (0-129) mg/dL HDL Cholesterol 23 L (30-70) mg/dL Urine Osmolality (300-1000) mosm/kg Ur Random Sodium mmol/L Phenytoin (10-20) ug/mL Influenza Typ A,B (EIA) Negative for flu a/b (NEGATIVE) Laboratory Results - last 24 hr 08/02/17 08/02/17 08/02/17 06:30 08:55 09:05 WBC RBC Hgb Hct MCV MCH MCHC RDW Plt Count MPV Neut % (Auto) Lymph % (Auto) Hinds % (Auto) Eos % (Auto) Baso % (Auto) Neut # (Auto) Lymph # (Auto) Hinds # (Auto) Eos # (Auto) Baso # (Auto) Puncture Site pCO2 pO2 HCO3 ABG pH ABG Total CO2 ABG O2 Saturation ABG Base Excess ABG Hemoglobin ABG Carboxyhemoglobin POC ABG HHb (Measured) ABG Methemoglobin Reji Test A-a O2 Difference Respiratory Index Hgb O2 Saturation Vent Mode Mechanical Rate FiO2 Tidal Volume PEEP Sodium 121 L Potassium 3.6 Chloride 82 L Carbon Dioxide 27 Anion Gap 15 BUN 10 Creatinine 0.6 L Est GFR ( Amer) > 60 Est GFR (Non-Af Amer) > 60 POC Glucose (mg/dL) 108 Random Glucose 108 H Calcium 8.0 L Phosphorus 2.3 L Magnesium 1.7 Total Bilirubin 0.6 AST 35 ALT < 6 L Alkaline Phosphatase 144 H NT-Pro-B Natriuret Pep 02122 H Total Protein 7.9 Albumin 2.8 L Globulin 5.1 H Albumin/Globulin Ratio 0.5 L Triglycerides 116 D Cholesterol 162 LDL Cholesterol Direct 128 HDL Cholesterol 23 L Urine Osmolality Ur Random Sodium Phenytoin Influenza Typ A,B (EIA) Negative for flu a/b 08/02/17 08/02/17 08/02/17 11:45 18:49 19:02 WBC RBC Hgb Hct MCV MCH MCHC RDW Plt Count MPV Neut % (Auto) Lymph % (Auto) Hinds % (Auto) Eos % (Auto) Baso % (Auto) Neut # (Auto) Lymph # (Auto) Hinds # (Auto) Eos # (Auto) Baso # (Auto) Puncture Site pCO2 pO2 HCO3 ABG pH ABG Total CO2 ABG O2 Saturation ABG Base Excess ABG Hemoglobin ABG Carboxyhemoglobin POC ABG HHb (Measured) ABG Methemoglobin Reji Test A-a O2 Difference Respiratory Index Hgb O2 Saturation Vent Mode Mechanical Rate FiO2 Tidal Volume PEEP Sodium Potassium Chloride Carbon Dioxide Anion Gap BUN Creatinine Est GFR ( Amer) Est GFR (Non-Af Amer) POC Glucose (mg/dL) 133 H 95 Random Glucose Calcium Phosphorus Magnesium Total Bilirubin AST ALT Alkaline Phosphatase NT-Pro-B Natriuret Pep Total Protein Albumin Globulin Albumin/Globulin Ratio Triglycerides Cholesterol LDL Cholesterol Direct HDL Cholesterol Urine Osmolality 497 Ur Random Sodium 15 Phenytoin Influenza Typ A,B (EIA) 08/02/17 08/02/17 08/03/17 19:02 23:41 06:21 WBC 5.3 RBC 2.80 L Hgb 8.3 L Hct 24.3 L MCV 86.9 MCH 29.8 MCHC 34.3 RDW 17.0 H Plt Count 178 MPV 8.3 Neut % (Auto) 52.3 Lymph % (Auto) 37.9 Hinds % (Auto) 9.0 Eos % (Auto) 0.2 Baso % (Auto) 0.6 Neut # (Auto) 2.8 Lymph # (Auto) 2.0 Hinds # (Auto) 0.5 Eos # (Auto) 0.0 Baso # (Auto) 0.0 Puncture Site pCO2 pO2 HCO3 ABG pH ABG Total CO2 ABG O2 Saturation ABG Base Excess ABG Hemoglobin ABG Carboxyhemoglobin POC ABG HHb (Measured) ABG Methemoglobin Reji Test A-a O2 Difference Respiratory Index Hgb O2 Saturation Vent Mode Mechanical Rate FiO2 Tidal Volume PEEP Sodium 122 L Potassium 3.6 Chloride 85 L Carbon Dioxide 30 Anion Gap 10 BUN 11 Creatinine 0.8 Est GFR ( Amer) > 60 Est GFR (Non-Af Amer) > 60 POC Glucose (mg/dL) 72 Random Glucose 90 Calcium 7.5 L Phosphorus Magnesium Total Bilirubin AST ALT Alkaline Phosphatase NT-Pro-B Natriuret Pep Total Protein Albumin Globulin Albumin/Globulin Ratio Triglycerides Cholesterol LDL Cholesterol Direct HDL Cholesterol Urine Osmolality Ur Random Sodium Phenytoin Influenza Typ A,B (EIA) 08/03/17 08/03/17 08/03/17 06:22 06:22 06:22 WBC RBC Hgb Hct MCV MCH MCHC RDW Plt Count MPV Neut % (Auto) Lymph % (Auto) Hinds % (Auto) Eos % (Auto) Baso % (Auto) Neut # (Auto) Lymph # (Auto) Hinds # (Auto) Eos # (Auto) Baso # (Auto) Puncture Site pCO2 pO2 HCO3 ABG pH ABG Total CO2 ABG O2 Saturation ABG Base Excess ABG Hemoglobin ABG Carboxyhemoglobin POC ABG HHb (Measured) ABG Methemoglobin Reji Test A-a O2 Difference Respiratory Index Hgb O2 Saturation Vent Mode Mechanical Rate FiO2 Tidal Volume PEEP Sodium 124 L Potassium 3.3 L Chloride 88 L Carbon Dioxide 31 H Anion Gap 9 L BUN 11 Creatinine 0.8 Est GFR ( Amer) > 60 Est GFR (Non-Af Amer) > 60 POC Glucose (mg/dL) 65 Random Glucose 69 Calcium 7.5 L Phosphorus 3.2 Magnesium 1.6 Total Bilirubin 0.5 AST 37 H ALT 13 Alkaline Phosphatase 97 NT-Pro-B Natriuret Pep Total Protein 6.8 Albumin 2.4 L Globulin 4.4 H Albumin/Globulin Ratio 0.6 L Triglycerides Cholesterol LDL Cholesterol Direct HDL Cholesterol Urine Osmolality Ur Random Sodium Phenytoin < 3.0 L Influenza Typ A,B (EIA) 08/03/17 08/03/17 08/03/17 06:24 07:00 07:25 WBC RBC Hgb Hct MCV MCH MCHC RDW Plt Count MPV Neut % (Auto) Lymph % (Auto) Hinds % (Auto) Eos % (Auto) Baso % (Auto) Neut # (Auto) Lymph # (Auto) Hinds # (Auto) Eos # (Auto) Baso # (Auto) Puncture Site Rr pCO2 36 pO2 163 H HCO3 28.1 H ABG pH 7.49 H ABG Total CO2 28.5 H ABG O2 Saturation 99.9 H ABG Base Excess 4.1 H ABG Hemoglobin 12.8 ABG Carboxyhemoglobin 2.2 H POC ABG HHb (Measured) 0.1 ABG Methemoglobin 1.5 Reji Test Pos A-a O2 Difference 6.0 Respiratory Index 0 Hgb O2 Saturation 96.2 Vent Mode Prvc Mechanical Rate 12 FiO2 30.0 Tidal Volume 500 PEEP 5 Sodium Potassium Chloride Carbon Dioxide Anion Gap BUN Creatinine Est GFR ( Amer) Est GFR (Non-Af Amer) POC Glucose (mg/dL) 56 L 114 H Random Glucose Calcium Phosphorus Magnesium Total Bilirubin AST ALT Alkaline Phosphatase NT-Pro-B Natriuret Pep Total Protein Albumin Globulin Albumin/Globulin Ratio Triglycerides Cholesterol LDL Cholesterol Direct HDL Cholesterol Urine Osmolality Ur Random Sodium Phenytoin Influenza Typ A,B (EIA) Fingerstick Blood Sugar Results: 221 Assessment/Plan - Assessment and Plan (Free Text) Plan: Patient admitted to ICU for seizures and is intubated. Patient seen and examined at bedside. Patient awake, however not able to move right upper arm and right lower leg. --Seizures; etiology unknown; AED continued, no seizures over last 24 hours -systolic Heart failure:continue asa, statin, acei, obtain echo to r/o PFO, lasix today -P. A-fib: will benefit from AC (cardiology input) echo pending -Paralysis of right side: resolved, (likely abhijeet's paralysis -hypoxic respiratory failure: tolerated CPAP, and was weaning parameters good, will extubate -BGm q6hrs, ISS aspart -continue dvt/pud ppx cc time 35 minutes - Date & Time Date: 08/03/17 Time: 09:23
[2017-08-03 10:13] LABS: ARTERIAL BLOOD GAS HCO3 28.2 mmol/L (21-28); ARTERIAL BLOOD GAS O2 SAT 99.3 % (95-98); ARTERIAL BLOOD GAS PCO2 44 mm/Hg (35-45); ARTERIAL BLOOD GAS PH 7.43 (7.35-7.45); ARTERIAL BLOOD GAS PO2 111 mm/Hg (80-100); ARTERIAL BLOOD GAS TCO2 30.6 mmol/L (22-28)
[2017-08-03] MEDS: Metoprolol 1 mg/ml Inj IVP SCH ×3 (10:13→21:23)
[2017-08-03] MEDS: Lactobacillus Acidophilus 500 MU Cap PO SCH ×2 (10:18→17:05)
[2017-08-03] MEDS ORDERED: Vancomycin 1 gm/NS 200 ml 1 GM/200 ML BAG IVPB STA (11:45)
[2017-08-03] MEDS ORDERED: Lacosamide 200mg/20ml Inj IV SCH (14:37)
[2017-08-03 16:48] LABS: OSMOLALITY,URINE 437 mosm/kg (300-1000)
[2017-08-03] MEDS ORDERED: Dextrose 50% SYRINGE Inj (50 ml) IV PRN (17:06)
--- NOTE | 2017-08-03 17:06 | CP.PCM.CON ---
History of Present Illness - History of Present Illness History of Present Illness: PT ADMITTED WITH NEW ONSET SEIZURES. WHILE IN ICU PT DEVELOPED PAF. NO RUNS OVER 24 HOURS. CURRENTLY PT CONTROLLED IN SR ON BB'S METOPROLOL 50 Q12. PT HAS A HX OF CABG AND MVR BIO. PT HAS A HX OF GIB (MULTIPLE). PT CURRENTLY NOT ON ASA OR ANY ANTIPLT. DURING PAF PTS K WAS 3.0. Past Patient History - Infectious Disease Hx of Infectious Diseases: None - Past Medical History & Family History Past Medical History?: Yes - Past Social History Smoking Status: Never Smoked - CARDIAC Hx Atrial Fibrillation: Yes Hx Cardia Arrhythmia: Yes Hx Congestive Heart Failure: Yes Hx Hypercholesterolemia: Yes Hx Hypertension: Yes Hx Pacemaker: No - PULMONARY Hx Chronic Obstructive Pulmonary Disease (COPD): Yes - NEUROLOGICAL Hx Dementia: Yes Hx Seizures: No - HEENT Hx HEENT Problems: No - RENAL Hx Chronic Kidney Disease: No - ENDOCRINE/METABOLIC Hx Endocrine Disorders: Yes Hx Diabetes Mellitus Type 2: Yes - HEMATOLOGICAL/ONCOLOGICAL Hx Anemia: Yes Hx Human Immunodeficiency Virus (HIV): No - INTEGUMENTARY Hx Dermatological Problems: No - MUSCULOSKELETAL/RHEUMATOLOGICAL Hx Arthritis: Yes Hx Osteoporosis: Yes Hx Rheumatoid Arthritis: Yes - GASTROINTESTINAL Hx Gastrointestinal Disorders: Yes Hx Ulcer: Yes Other/Comment: appendectomy history of endoscopies. ventral hernia - GENITOURINARY/GYNECOLOGICAL Hx Sexually Transmitted Disorders: No - PSYCHIATRIC Hx Substance Use: No - SURGICAL HISTORY Hx Appendectomy: Yes Hx Coronary Artery Bypass Graft: Yes Hx Coronary Stent: Yes - ANESTHESIA Hx Anesthesia: Yes Hx Anesthesia Reactions: No Hx Malignant Hyperthermia: No Meds Allergies/Adverse Reactions: Allergies Allergy/AdvReac Type Severity Reaction Status Date / Time No Known Allergies Allergy Verified 08/01/17 19:02 - Medications Medications: Current Medications Albuterol/Ipratropium (Duoneb 3 Mg/0.5 Mg (3 Ml) Ud) 3 ml INH RQ6 [facility] Last Admin: 08/03/17 13:53 Dose: 3 ml Heparin Sodium (Porcine) (Heparin) 5,000 units SC Q12 [facility] Last Admin: 08/03/17 10:13 Dose: 5,000 units Sodium Chloride (Sodium Chloride 0.9%) 1,000 mls @ 42 mls/hr IV .[id number] [facility] Last Admin: 08/02/17 18:38 Dose: 42 mls/hr Vancomycin HCl 750 mg/ Sodium (Chloride) 250 mls @ 166.6 mls/hr IVPB Q12H [facility] Lacosamide (Vimpat 200mg/20ml) 100 mg IV Q12 [facility] Lactobacillus Acidophilus (Bacid Acidophilus) 1 cap PO BID [facility] Last Admin: 08/03/17 10:18 Dose: Not Given Losartan Potassium (Cozaar) 25 mg PO DAILY [facility] Last Admin: 08/03/17 10:18 Dose: Not Given Metoprolol Tartrate (Lopressor) 50 mg PO BID [facility] Last Admin: 08/03/17 10:18 Dose: Not Given Metoprolol Tartrate (Lopressor) 5 mg IVP Q6H [facility] Last Admin: 08/03/17 10:13 Dose: 5 mg Pantoprazole Sodium (Protonix Inj) 40 mg IVP Q12 [facility] Last Admin: 08/03/17 10:13 Dose: 40 mg Pneumococcal Polyvalent Vaccine (Pneumovax 23 Vaccine) 0.5 ml SC .ONCE ONE Stop: 08/04/17 10:01 Rifampin (Rifampin Cap) 300 mg PO TID [facility] Last Admin: 08/03/17 10:13 Dose: 300 mg Rosuvastatin Calcium (Crestor) 40 mg PO [facility] Results - Vital Signs Recent Vital Signs: Last Vital Signs Temp 98.1 F 08/03/17 16:00 Pulse 94 H 08/03/17 16:07 Resp 12 08/03/17 16:07 BP 100/67 08/03/17 16:07 Pulse Ox 99 08/03/17 16:07 - Labs Result Diagrams: 08/03/17 06:21 08/03/17 06:22 Labs: Laboratory Results - last 24 hr 08/02/17 08/02/17 08/02/17 18:49 19:02 19:02 WBC RBC Hgb Hct MCV MCH MCHC RDW Plt Count MPV Neut % (Auto) Lymph % (Auto) [place] % (Auto) Eos % (Auto) Baso % (Auto) Neut # (Auto) Lymph # (Auto) [place] # (Auto) Eos # (Auto) Baso # (Auto) Puncture Site pCO2 pO2 HCO3 ABG pH ABG Total CO2 ABG O2 Saturation ABG Base Excess ABG Hemoglobin ABG Carboxyhemoglobin POC ABG HHb (Measured) ABG Methemoglobin Reji Test ABG Potassium A-a O2 Difference Respiratory Index Hgb O2 Saturation Glucose Lactate Vent Mode Mechanical Rate FiO2 Tidal Volume PEEP Sodium 122 L Potassium 3.6 Chloride 85 L Carbon Dioxide 30 Anion Gap 10 BUN 11 Creatinine 0.8 Est GFR ( Amer) > 60 Est GFR (Non-Af Amer) > 60 POC Glucose (mg/dL) 95 Random Glucose 90 Calcium 7.5 L Phosphorus Magnesium Total Bilirubin AST ALT Alkaline Phosphatase Total Protein Albumin Globulin Albumin/Globulin Ratio Arterial Blood Potassium Urine Osmolality 497 Ur Random Sodium 15 Phenytoin 08/02/17 08/03/17 08/03/17 23:41 06:21 06:22 WBC 5.3 RBC 2.80 L Hgb 8.3 L Hct 24.3 L MCV 86.9 MCH 29.8 MCHC 34.3 RDW 17.0 H Plt Count 178 MPV 8.3 Neut % (Auto) 52.3 Lymph % (Auto) 37.9 [place] % (Auto) 9.0 Eos % (Auto) 0.2 Baso % (Auto) 0.6 Neut # (Auto) 2.8 Lymph # (Auto) 2.0 [place] # (Auto) 0.5 Eos # (Auto) 0.0 Baso # (Auto) 0.0 Puncture Site pCO2 pO2 HCO3 ABG pH ABG Total CO2 ABG O2 Saturation ABG Base Excess ABG Hemoglobin ABG Carboxyhemoglobin POC ABG HHb (Measured) ABG Methemoglobin Reji Test ABG Potassium A-a O2 Difference Respiratory Index Hgb O2 Saturation Glucose Lactate Vent Mode Mechanical Rate FiO2 Tidal Volume PEEP Sodium Potassium Chloride Carbon Dioxide Anion Gap BUN Creatinine Est GFR ( Amer) Est GFR (Non-Af Amer) POC Glucose (mg/dL) 72 Random Glucose Calcium Phosphorus Magnesium Total Bilirubin AST ALT Alkaline Phosphatase Total Protein Albumin Globulin Albumin/Globulin Ratio Arterial Blood Potassium Urine Osmolality Ur Random Sodium Phenytoin < 3.0 L 08/03/17 08/03/17 08/03/17 06:22 06:22 06:24 WBC RBC Hgb Hct MCV MCH MCHC RDW Plt Count MPV Neut % (Auto) Lymph % (Auto) [place] % (Auto) Eos % (Auto) Baso % (Auto) Neut # (Auto) Lymph # (Auto) [place] # (Auto) Eos # (Auto) Baso # (Auto) Puncture Site pCO2 pO2 HCO3 ABG pH ABG Total CO2 ABG O2 Saturation ABG Base Excess ABG Hemoglobin ABG Carboxyhemoglobin POC ABG HHb (Measured) ABG Methemoglobin Reji Test ABG Potassium A-a O2 Difference Respiratory Index Hgb O2 Saturation Glucose Lactate Vent Mode Mechanical Rate FiO2 Tidal Volume PEEP Sodium 124 L Potassium 3.3 L Chloride 88 L Carbon Dioxide 31 H Anion Gap 9 L BUN 11 Creatinine 0.8 Est GFR ( Amer) > 60 Est GFR (Non-Af Amer) > 60 POC Glucose (mg/dL) 65 56 L Random Glucose 69 Calcium 7.5 L Phosphorus 3.2 Magnesium 1.6 Total Bilirubin 0.5 AST 37 H ALT 13 Alkaline Phosphatase 97 Total Protein 6.8 Albumin 2.4 L Globulin 4.4 H Albumin/Globulin Ratio 0.6 L Arterial Blood Potassium Urine Osmolality Ur Random Sodium Phenytoin 08/03/17 08/03/17 08/03/17 07:00 07:25 10:09 WBC RBC Hgb Hct MCV MCH MCHC RDW Plt Count MPV Neut % (Auto) Lymph % (Auto) [place] % (Auto) Eos % (Auto) Baso % (Auto) Neut # (Auto) Lymph # (Auto) [place] # (Auto) Eos # (Auto) Baso # (Auto) Puncture Site Rr Rba pCO2 36 44 pO2 163 H 111 H HCO3 28.1 H 28.2 H ABG pH 7.49 H 7.43 ABG Total CO2 28.5 H 30.6 H ABG O2 Saturation 99.9 H 99.3 H ABG Base Excess 4.1 H 4.2 H ABG Hemoglobin 12.8 ABG Carboxyhemoglobin 2.2 H POC ABG HHb (Measured) 0.1 ABG Methemoglobin 1.5 Reji Test Pos Na ABG Potassium 2.8 L A-a O2 Difference 6.0 48.0 Respiratory Index 0 0.4 Hgb O2 Saturation 96.2 Glucose 84 Lactate 0.6 L Vent Mode Prvc Mechanical Rate 12 FiO2 30.0 30.0 Tidal Volume 500 PEEP 5 Sodium 128.0 L Potassium Chloride 93.0 L Carbon Dioxide Anion Gap BUN Creatinine Est GFR ( Amer) Est GFR (Non-Af Amer) POC Glucose (mg/dL) 114 H Random Glucose Calcium Phosphorus Magnesium Total Bilirubin AST ALT Alkaline Phosphatase Total Protein Albumin Globulin Albumin/Globulin Ratio Arterial Blood Potassium 2.8 L Urine Osmolality Ur Random Sodium Phenytoin 08/03/17 08/03/17 12:29 16:10 WBC RBC Hgb Hct MCV MCH MCHC RDW Plt Count MPV Neut % (Auto) Lymph % (Auto) [place] % (Auto) Eos % (Auto) Baso % (Auto) Neut # (Auto) Lymph # (Auto) [place] # (Auto) Eos # (Auto) Baso # (Auto) Puncture Site pCO2 pO2 HCO3 ABG pH ABG Total CO2 ABG O2 Saturation ABG Base Excess ABG Hemoglobin ABG Carboxyhemoglobin POC ABG HHb (Measured) ABG Methemoglobin Reji Test ABG Potassium A-a O2 Difference Respiratory Index Hgb O2 Saturation Glucose Lactate Vent Mode Mechanical Rate FiO2 Tidal Volume PEEP Sodium Potassium Chloride Carbon Dioxide Anion Gap BUN Creatinine Est GFR ( Amer) Est GFR (Non-Af Amer) POC Glucose (mg/dL) 76 Random Glucose Calcium Phosphorus Magnesium Total Bilirubin AST ALT Alkaline Phosphatase Total Protein Albumin Globulin Albumin/Globulin Ratio Arterial Blood Potassium Urine Osmolality 437 Ur Random Sodium 95 Phenytoin Assessment & Plan (1) PAF (paroxysmal atrial fibrillation) Status: Acute (2) Hypokalemia Status: Acute (3) New onset seizure Status: Acute (4) SIADH (syndrome of inappropriate ADH production) Status: Acute (5) H/O mitral valve replacement Status: Chronic (6) CAD (coronary artery disease) Status: Chronic - Assessment and Plan (Free Text) Plan: CONT BB NO ANTICOAG GIVEN RISK OF GIB AWAIT MRI TO EVAL FOR INTRACRANIAL PATHOLOGY. D/W ICU STAFF AND HOSPITALIST.
[2017-08-03] MEDS: Sodium Chloride 0.9% 1,000 ML IV SCH (18:46)
--- NOTE | 2017-08-03 19:18 | CP.PCM.PN ---
Subjective - Date & Time of Evaluation Date of Evaluation: 08/03/17 Time of Evaluation: 14:00 - Subjective Subjective: Patient extubated today; more alert and having some purposeful movement of b/l arms but still not following commands per nursing staff; Objective - Vital Signs/Intake and Output Vital Signs (last 24 hours): Temp Pulse Resp BP Pulse Ox 98.1 F 94 H 12 100/67 99 08/03/17 16:00 08/03/17 16:07 08/03/17 16:07 08/03/17 16:07 08/03/17 16:07 Intake and Output: 08/03/17 08/04/17 18:59 06:59 Intake Total 845 Output Total 680 Balance 165 - Medications Medications: Current Medications Albuterol/Ipratropium (Duoneb 3 Mg/0.5 Mg (3 Ml) Ud) 3 ml INH RQ6 [facility] Last Admin: 08/03/17 13:53 Dose: 3 ml Dextrose (Dextrose 50% Inj) 0 ml IV STAT PRN; Protocol PRN Reason: Hypoglycemia Protocol Last Admin: 08/03/17 17:55 Dose: 50 ml Heparin Sodium (Porcine) (Heparin) 5,000 units SC Q12 [facility] Last Admin: 08/03/17 10:13 Dose: 5,000 units Sodium Chloride (Sodium Chloride 0.9%) 1,000 mls @ 42 mls/hr IV .[id number] [facility] Last Admin: 08/03/17 18:46 Dose: 42 mls/hr Vancomycin HCl 750 mg/ Sodium (Chloride) 250 mls @ 166.6 mls/hr IVPB Q12H [facility] Lacosamide (Vimpat 200mg/20ml) 100 mg IV Q12 [facility] Last Admin: 08/03/17 15:52 Dose: 100 mg Lactobacillus Acidophilus (Bacid Acidophilus) 1 cap PO BID [facility] Last Admin: 08/03/17 17:05 Dose: Not Given Losartan Potassium (Cozaar) 25 mg PO DAILY [facility] Last Admin: 08/03/17 10:18 Dose: Not Given Metoprolol Tartrate (Lopressor) 50 mg PO BID [facility] Last Admin: 08/03/17 17:05 Dose: Not Given Metoprolol Tartrate (Lopressor) 5 mg IVP Q6H [facility] Last Admin: 08/03/17 17:05 Dose: Not Given Pantoprazole Sodium (Protonix Inj) 40 mg IVP Q12 [facility] Last Admin: 08/03/17 10:13 Dose: 40 mg Pneumococcal Polyvalent Vaccine (Pneumovax 23 Vaccine) 0.5 ml SC .ONCE ONE Stop: 08/04/17 10:01 Rifampin (Rifampin Cap) 300 mg PO TID [facility] Last Admin: 08/03/17 18:45 Dose: 300 mg Rosuvastatin Calcium (Crestor) 40 mg PO HS [facility] - Labs Labs: 08/03/17 06:21 08/03/17 06:22 PT 14.6 SECONDS (9.7-12.2) H 08/01/17 19:55 INR 1.3 08/01/17 19:55 APTT 47 SECONDS (21-34) H 08/01/17 19:55 - Constitutional Appears: Non-toxic, No Acute Distress - Eye Exam Eye Exam: Normal appearance. absent: Scleral icterus - ENT Exam ENT Exam: Mucous Membranes Moist - Respiratory Exam Respiratory Exam: Clear to Ausculation Bilateral. absent: Respiratory Distress - Cardiovascular Exam Cardiovascular Exam: RRR, +S1, +S2 - GI/Abdominal Exam GI & Abdominal Exam: Soft. absent: Distended, Tenderness - Exam Exam: absent: Bladder Distension - Extremities Exam Additional comments: mild edema of legs (improved); - Neurological Exam Neurological Exam: Alert, Awake Additional comments: not following commands; - Psychiatric Exam Psychiatric exam: absent: Agitated - Skin Skin Exam: Warm. absent: Cyanosis Assessment and Plan (1) Hyponatremia Assessment & Plan: Slightly improved with tolvaptan, extra 15 mg dose being given last night; rifampin likely causing lower blood levels of the drug; giving 30 mg tolvaptan dose today; IV lasix and aggressive correction of hypokalemia should help as well; Status: Acute (2) CHF (congestive heart failure) Assessment & Plan: Severe systolic dysfunction; not acutely decompensated but needs to restart PO BB/ARB; will benefit from aldactone once hyponatremia stabilized; Status: Chronic (3) Septic arthritis Assessment & Plan: Abx changed to vanco and gent, need to check trough levels before 3rd dose to avoid NICOLE; Status: Chronic
--- NOTE | 2017-08-03 19:35 | CP.PCM.CON ---
History of Present Illness - History of Present Illness History of Present Illness: INFECTIOUS DISEASE CONSULT; HPI 72 F with h/o ischemic cardiomyopthy low ef, dm, siadh, mssa left knee septic arthritis, s/p drainage, htn, RA, not on anticoagulation was in rehab, had 3 seizure episodes, and received ativan at the rehab. In ER patient was completely unresponsive, CT brain didn't show any acute changes, patient was intubated in ER for airway protection. Patient in short time started to respond appropriately and later in ICU need some sedation. Hyponatremia 123 noticed in with hypokalemia, and hypomagnesimia, patient had leg edema with skin wrinkles suggesting prior increased edema. Patient was on genta, cefazolin and rIfampin for MSSA septic arthritis. PATIENT WAS RECENTLY DISCHARGED FROM [facility] ON 07/26/17 TO SUBACUTE REHABILITATION FOR IV ANTIBIOTICS FOR 6 WEEKS. INFECTIOUS DISEASE CONSULTATION REQUESTED BY HOSPITALIST DR. BREEN IN VIEW OF SEIZURES /AMS FOR REEVALUATION OF iv ANTIBIOTICS. PATIENT PRESENTLY IN ICU AND EXTUBATED. PATIENT DOES NOT OFFER ANY COMPLAINTS AT PRESENT. 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 Meds noticed including tramadol for pain Review of Systems - Review of Systems All systems: reviewed and no additional remarkable complaints except ( PER HPI.) Past Patient History - Infectious Disease Hx of Infectious Diseases: None - Past Medical History & Family History Past Medical History?: Yes - Past Social History Smoking Status: Never Smoked - CARDIAC Hx Atrial Fibrillation: Yes Hx Cardia Arrhythmia: Yes Hx Congestive Heart Failure: Yes Hx Hypercholesterolemia: Yes Hx Hypertension: Yes Hx Pacemaker: No - PULMONARY Hx Chronic Obstructive Pulmonary Disease (COPD): Yes - NEUROLOGICAL Hx Dementia: Yes Hx Seizures: No - HEENT Hx HEENT Problems: No - RENAL Hx Chronic Kidney Disease: No - ENDOCRINE/METABOLIC Hx Endocrine Disorders: Yes Hx Diabetes Mellitus Type 2: Yes - HEMATOLOGICAL/ONCOLOGICAL Hx Anemia: Yes Hx Human Immunodeficiency Virus (HIV): No - INTEGUMENTARY Hx Dermatological Problems: No - MUSCULOSKELETAL/RHEUMATOLOGICAL Hx Arthritis: Yes Hx Osteoporosis: Yes Hx Rheumatoid Arthritis: Yes - GASTROINTESTINAL Hx Gastrointestinal Disorders: Yes Hx Ulcer: Yes Other/Comment: appendectomy history of endoscopies. ventral hernia - GENITOURINARY/GYNECOLOGICAL Hx Sexually Transmitted Disorders: No - PSYCHIATRIC Hx Substance Use: No - SURGICAL HISTORY Hx Appendectomy: Yes Hx Coronary Artery Bypass Graft: Yes Hx Coronary Stent: Yes - ANESTHESIA Hx Anesthesia: Yes Hx Anesthesia Reactions: No Hx Malignant Hyperthermia: No Meds Allergies/Adverse Reactions: Allergies Allergy/AdvReac Type Severity Reaction Status Date / Time No Known Allergies Allergy Verified 08/01/17 19:02 - Medications Medications: Current Medications Albuterol/Ipratropium (Duoneb 3 Mg/0.5 Mg (3 Ml) Ud) 3 ml INH RQ6 [facility] Last Admin: 08/03/17 13:53 Dose: 3 ml Dextrose (Dextrose 50% Inj) 0 ml IV STAT PRN; Protocol PRN Reason: Hypoglycemia Protocol Last Admin: 08/03/17 17:55 Dose: 50 ml Heparin Sodium (Porcine) (Heparin) 5,000 units SC Q12 [facility] Last Admin: 08/03/17 10:13 Dose: 5,000 units Sodium Chloride (Sodium Chloride 0.9%) 1,000 mls @ 42 mls/hr IV .[id number] [facility] Last Admin: 08/03/17 18:46 Dose: 42 mls/hr Vancomycin HCl 750 mg/ Sodium (Chloride) 250 mls @ 166.6 mls/hr IVPB Q12H [facility] Lacosamide (Vimpat 200mg/20ml) 100 mg IV Q12 [facility] Last Admin: 08/03/17 15:52 Dose: 100 mg Lactobacillus Acidophilus (Bacid Acidophilus) 1 cap PO BID [facility] Last Admin: 08/03/17 17:05 Dose: Not Given Losartan Potassium (Cozaar) 25 mg PO DAILY [facility] Last Admin: 08/03/17 10:18 Dose: Not Given Metoprolol Tartrate (Lopressor) 50 mg PO BID [facility] Last Admin: 08/03/17 17:05 Dose: Not Given Metoprolol Tartrate (Lopressor) 5 mg IVP Q6H [facility] Last Admin: 08/03/17 17:05 Dose: Not Given Pantoprazole Sodium (Protonix Inj) 40 mg IVP Q12 [facility] Last Admin: 08/03/17 10:13 Dose: 40 mg Pneumococcal Polyvalent Vaccine (Pneumovax 23 Vaccine) 0.5 ml SC .ONCE ONE Stop: 08/04/17 10:01 Rifampin (Rifampin Cap) 300 mg PO TID [facility] Last Admin: 08/03/17 18:45 Dose: 300 mg Rosuvastatin Calcium (Crestor) 40 mg PO HS [facility] Physical Exam - Constitutional Appears: No Acute Distress - Eye Exam Eye Exam: EOMI, PERRL - ENT Exam ENT Exam: Normal Oropharynx - Neck Exam Neck exam: Positive for: Normal Inspection. Negative for: Meningismus - Respiratory Exam Respiratory Exam: Clear to Auscultation Bilateral - Cardiovascular Exam Cardiovascular Exam: REGULAR RHYTHM, +S1, +S2 - GI/Abdominal Exam GI & Abdominal Exam: Normal Bowel Sounds (+VE VENTRAL HERNIA.), Soft - Extremities Exam Extremities exam: Positive for: pedal edema. Negative for: calf tenderness ( LT.KNEE +EFFUSION +VE STICHES POST OP. WOUND SITE OK.NO TENDERNESS/OR WARMTH.) - Neurological Exam Neurological exam: Alert, CN II-XII Intact - Psychiatric Exam Psychiatric exam: Normal Affect - Skin Skin Exam: Normal Color, Warm Results - Vital Signs Recent Vital Signs: Last Vital Signs Temp 98.1 F 08/03/17 16:00 Pulse 93 H 08/03/17 19:07 Resp 22 08/03/17 19:07 BP 111/69 08/03/17 19:07 Pulse Ox 96 08/03/17 19:07 - Labs Result Diagrams: 08/03/17 06:21 08/03/17 06:22 Labs: Laboratory Results - last 24 hr 08/02/17 08/02/17 08/03/17 18:49 23:41 06:21 WBC 5.3 RBC 2.80 L Hgb 8.3 L Hct 24.3 L MCV 86.9 MCH 29.8 MCHC 34.3 RDW 17.0 H Plt Count 178 MPV 8.3 Neut % (Auto) 52.3 Lymph % (Auto) 37.9 [place] % (Auto) 9.0 Eos % (Auto) 0.2 Baso % (Auto) 0.6 Neut # (Auto) 2.8 Lymph # (Auto) 2.0 [place] # (Auto) 0.5 Eos # (Auto) 0.0 Baso # (Auto) 0.0 Puncture Site pCO2 pO2 HCO3 ABG pH ABG Total CO2 ABG O2 Saturation ABG Base Excess ABG Hemoglobin ABG Carboxyhemoglobin POC ABG HHb (Measured) ABG Methemoglobin Reji Test ABG Potassium A-a O2 Difference Respiratory Index Hgb O2 Saturation Glucose Lactate Vent Mode Mechanical Rate FiO2 Tidal Volume PEEP Sodium Potassium Chloride Carbon Dioxide Anion Gap BUN Creatinine Est GFR ( Amer) Est GFR (Non-Af Amer) POC Glucose (mg/dL) 95 72 Random Glucose Calcium Phosphorus Magnesium Total Bilirubin AST ALT Alkaline Phosphatase Total Protein Albumin Globulin Albumin/Globulin Ratio Arterial Blood Potassium Urine Osmolality Ur Random Sodium Phenytoin 08/03/17 08/03/17 08/03/17 06:22 06:22 06:22 WBC RBC Hgb Hct MCV MCH MCHC RDW Plt Count MPV Neut % (Auto) Lymph % (Auto) [place] % (Auto) Eos % (Auto) Baso % (Auto) Neut # (Auto) Lymph # (Auto) [place] # (Auto) Eos # (Auto) Baso # (Auto) Puncture Site pCO2 pO2 HCO3 ABG pH ABG Total CO2 ABG O2 Saturation ABG Base Excess ABG Hemoglobin ABG Carboxyhemoglobin POC ABG HHb (Measured) ABG Methemoglobin Reji Test ABG Potassium A-a O2 Difference Respiratory Index Hgb O2 Saturation Glucose Lactate Vent Mode Mechanical Rate FiO2 Tidal Volume PEEP Sodium 124 L Potassium 3.3 L Chloride 88 L Carbon Dioxide 31 H Anion Gap 9 L BUN 11 Creatinine 0.8 Est GFR ( Amer) > 60 Est GFR (Non-Af Amer) > 60 POC Glucose (mg/dL) 65 Random Glucose 69 Calcium 7.5 L Phosphorus 3.2 Magnesium 1.6 Total Bilirubin 0.5 AST 37 H ALT 13 Alkaline Phosphatase 97 Total Protein 6.8 Albumin 2.4 L Globulin 4.4 H Albumin/Globulin Ratio 0.6 L Arterial Blood Potassium Urine Osmolality Ur Random Sodium Phenytoin < 3.0 L 08/03/17 08/03/17 08/03/17 06:24 07:00 07:25 WBC RBC Hgb Hct MCV MCH MCHC RDW Plt Count MPV Neut % (Auto) Lymph % (Auto) [place] % (Auto) Eos % (Auto) Baso % (Auto) Neut # (Auto) Lymph # (Auto) [place] # (Auto) Eos # (Auto) Baso # (Auto) Puncture Site Rr pCO2 36 pO2 163 H HCO3 28.1 H ABG pH 7.49 H ABG Total CO2 28.5 H ABG O2 Saturation 99.9 H ABG Base Excess 4.1 H ABG Hemoglobin 12.8 ABG Carboxyhemoglobin 2.2 H POC ABG HHb (Measured) 0.1 ABG Methemoglobin 1.5 Reji Test Pos ABG Potassium A-a O2 Difference 6.0 Respiratory Index 0 Hgb O2 Saturation 96.2 Glucose Lactate Vent Mode Prvc Mechanical Rate 12 FiO2 30.0 Tidal Volume 500 PEEP 5 Sodium Potassium Chloride Carbon Dioxide Anion Gap BUN Creatinine Est GFR ( Amer) Est GFR (Non-Af Amer) POC Glucose (mg/dL) 56 L 114 H Random Glucose Calcium Phosphorus Magnesium Total Bilirubin AST ALT Alkaline Phosphatase Total Protein Albumin Globulin Albumin/Globulin Ratio Arterial Blood Potassium Urine Osmolality Ur Random Sodium Phenytoin 08/03/17 08/03/17 08/03/17 10:09 12:29 16:10 WBC RBC Hgb Hct MCV MCH MCHC RDW Plt Count MPV Neut % (Auto) Lymph % (Auto) [place] % (Auto) Eos % (Auto) Baso % (Auto) Neut # (Auto) Lymph # (Auto) [place] # (Auto) Eos # (Auto) Baso # (Auto) Puncture Site Rba pCO2 44 pO2 111 H HCO3 28.2 H ABG pH 7.43 ABG Total CO2 30.6 H ABG O2 Saturation 99.3 H ABG Base Excess 4.2 H ABG Hemoglobin ABG Carboxyhemoglobin POC ABG HHb (Measured) ABG Methemoglobin Reji Test Na ABG Potassium 2.8 L A-a O2 Difference 48.0 Respiratory Index 0.4 Hgb O2 Saturation Glucose 84 Lactate 0.6 L Vent Mode Mechanical Rate FiO2 30.0 Tidal Volume PEEP Sodium 128.0 L Potassium Chloride 93.0 L Carbon Dioxide Anion Gap BUN Creatinine Est GFR ( Amer) Est GFR (Non-Af Amer) POC Glucose (mg/dL) 76 Random Glucose Calcium Phosphorus Magnesium Total Bilirubin AST ALT Alkaline Phosphatase Total Protein Albumin Globulin Albumin/Globulin Ratio Arterial Blood Potassium 2.8 L Urine Osmolality 437 Ur Random Sodium 95 Phenytoin 08/03/17 08/03/17 08/03/17 17:02 17:05 17:29 WBC RBC Hgb Hct MCV MCH MCHC RDW Plt Count MPV Neut % (Auto) Lymph % (Auto) [place] % (Auto) Eos % (Auto) Baso % (Auto) Neut # (Auto) Lymph # (Auto) [place] # (Auto) Eos # (Auto) Baso # (Auto) Puncture Site pCO2 pO2 HCO3 ABG pH ABG Total CO2 ABG O2 Saturation ABG Base Excess ABG Hemoglobin ABG Carboxyhemoglobin POC ABG HHb (Measured) ABG Methemoglobin Reji Test ABG Potassium A-a O2 Difference Respiratory Index Hgb O2 Saturation Glucose Lactate Vent Mode Mechanical Rate FiO2 Tidal Volume PEEP Sodium Potassium Chloride Carbon Dioxide Anion Gap BUN Creatinine Est GFR ( Amer) Est GFR (Non-Af Amer) POC Glucose (mg/dL) 68 66 178 H Random Glucose Calcium Phosphorus Magnesium Total Bilirubin AST ALT Alkaline Phosphatase Total Protein Albumin Globulin Albumin/Globulin Ratio Arterial Blood Potassium Urine Osmolality Ur Random Sodium Phenytoin - Imaging and Cardiology CT scan - head Status: Report reviewed by me (-VE ICH/OR STROKE) Assessment & Plan (1) New onset seizure Status: Acute (2) Hypokalemia Status: Acute (3) Hyponatremia Status: Acute (4) PAF (paroxysmal atrial fibrillation) Status: Acute (5) Septic arthritis Status: Chronic (6) Osteomyelitis of left knee region Status: Acute (7) H/O mitral valve replacement Status: Chronic (8) Diabetes mellitus Status: Chronic - Assessment and Plan (Free Text) Assessment: - NEW ONSET OF SEIZURES - MSSA SEPTIC ARTHRITIS LEFT KNEE/WITH PSEUDOGOUT /? OSTEOMYLITIS -S/P ARTHROSCOPIC IRRIGATION/DEBRIDEMENT, LEFT KNEE ARTHROSCOPIC PATELLAR MEDIAL /LATERAL MENISCECTOMY AND EXTENSIVE SYNOVECTOMY/CHONDROPLASTY TROCHLEA 07/19/17 - PROSTHETIC MITRAL- VALVE ENDOCARDITIS.(+VE VEGETATIONS could NOT BE RULED OUT ON 2-d ECHO ). -HX OF CABG /MVR. -CONGESTIVE HEART FAILURE. -PAROXSYSMAL ATRIAL FIBRILLATION. -ELECTROLYTE IMBALANCE -SIADH -DM-2 -RHEUMATOID ARTHRITIS/OSTEOPOROSIS BY HISTORY. PLAN . PANCULTURES. ESR,CRP. OFF IV ANCEF D/C IV ZOSYN . START IV VANCOMYCIN 1GM LD , F/U BY 750MG IV Q 12HRLY 08/03/17 F/U VANCO TROUGH LEVEL ON 4TH DOSE AND MAINTAIN BETWEEN 10- 20MCG/ML CONTINUE IV RIFAMPIN 300MG PO TID. CONTINUE IV GENTAMICIN 70 MILLIGRAMS iv PIGGYBACK ONCE A DAY DAILY X 5 MORE DAYS TO COMPLETE 2WKS RX (07/24/17 TILL 08/07/17 ) F/U RENAL FUNCTION CLOSELY NEURO W/U IN PROGRESS MRI BRAIN R/O EMBOLIC PHENOMENON EEG -P CASE DISCUSSED WITH DR BREEN(HOSPITALIST )
[2017-08-03] MEDS: Lacosamide 200mg/20ml 100 MG in Sodium Chloride 0.9% 100 ML IV SCH (22:06)
[2017-08-04] MEDS: Albuterol-Ipratrop 3 mg / 0.5 (3 ml) UD INH SCH ×4 (02:01→19:12)
[2017-08-04] MEDS: Metoprolol 1 mg/ml Inj IVP SCH ×4 (03:51→20:45)
[2017-08-04] MEDS: Gentamicin 70 MG in Sodium Chloride 0.9% 100 ML IVPB SCH (06:00)
[2017-08-04 06:32] LABS: HEMOGLOBIN 8.1 g/dL (11.0-16.0)
[2017-08-04 06:46] LABS: ALB/GLOB RATIO 0.5 (1.0-2.1); ALBUMIN 2.4 g/dL (3.5-5.0); ALT/SGPT < 6 U/L (9-52); AST/SGOT 41 U/L (14-36); BILIRUBIN,DIRECT 0.3 mg/dL (0.0-0.4); BLOOD UREA NITROGEN 11 mg/dL (7-17); CALCIUM 7.3 mg/dl (8.6-10.4); GFR AFRICAN-AMERICAN > 60; GFR NON-AFRICAN AMERICAN > 60; MAGNESIUM 1.5 mg/dL (1.6-2.3)
[2017-08-04 06:53] LABS: MEAN CELL VOLUME 86.9 fL (81.0-99.0); MEAN CORPUSCULAR HEMOGLOBIN 29.7 pg (27.0-31.0); MEAN CORPUSCULAR HGB CONC 34.2 g/dL (33.0-37.0); MEAN PLATELET VOLUME 9.4 fL (7.2-11.7); RBC 2.72 Mil/uL (3.80-5.20); RED CELL DISTRIBUTION WIDTH 16.8 % (11.5-14.5); WHITE BLOOD COUNT 4.8 K/uL (4.8-10.8)
--- NOTE | 2017-08-04 07:44 | CP.PCM.PN ---
Subjective - Date & Time of Evaluation Date of Evaluation: 08/04/17 Time of Evaluation: 07:35 - Subjective Subjective: Medical Attending Note: patient seen and examined. Patient able to seed cone picker with her left hand a cup and drink from it. Patient remains nonverbal. With romansh speaking nurse, patient appears less restless compared to year but only spoke 1-2 words not oriented. Unable to ROS at this time. Objective - Vital Signs/Intake and Output Vital Signs (last 24 hours): Temp Pulse Resp BP Pulse Ox 98.1 F 104 H 25 H 152/97 H 100 08/04/17 04:00 08/04/17 07:07 08/04/17 07:07 08/04/17 07:07 08/04/17 07:07 Intake and Output: 08/04/17 08/04/17 06:59 18:59 Intake Total 828 Output Total 700 Balance 128 - Medications Medications: Current Medications Albuterol/Ipratropium (Duoneb 3 Mg/0.5 Mg (3 Ml) Ud) 3 ml INH RQ6 [facility] Last Admin: 08/04/17 02:01 Dose: 3 ml Dextrose (Dextrose 50% Inj) 0 ml IV STAT PRN; Protocol PRN Reason: Hypoglycemia Protocol Last Admin: 08/03/17 17:55 Dose: 50 ml Heparin Sodium (Porcine) (Heparin) 5,000 units SC Q12 [facility] Last Admin: 08/03/17 21:23 Dose: 5,000 units Sodium Chloride (Sodium Chloride 0.9%) 1,000 mls @ 42 mls/hr IV .[id number] [facility] Last Admin: 08/03/17 18:46 Dose: 42 mls/hr Vancomycin HCl 750 mg/ Sodium (Chloride) 250 mls @ 166.6 mls/hr IVPB Q12H [facility] Last Admin: 08/03/17 23:16 Dose: 166.6 mls/hr Lacosamide 100 mg/ Sodium (Chloride) 110 mls @ 110 mls/hr IV Q12H [facility] Last Admin: 08/03/17 22:06 Dose: 110 mls/hr Gentamicin Sulfate 70 mg/ (Sodium Chloride) 101.75 mls @ 100 mls/hr IVPB Q24H [facility] Stop: 08/08/17 03:32 Last Admin: 08/04/17 06:00 Dose: 100 mls/hr Lactobacillus Acidophilus (Bacid Acidophilus) 1 cap PO BID [facility] Last Admin: 08/03/17 17:05 Dose: Not Given Losartan Potassium (Cozaar) 25 mg PO DAILY [facility] Last Admin: 08/03/17 10:18 Dose: Not Given Metoprolol Tartrate (Lopressor) 50 mg PO BID [facility] Last Admin: 08/03/17 17:05 Dose: Not Given Metoprolol Tartrate (Lopressor) 5 mg IVP Q6H [facility] Last Admin: 08/04/17 03:51 Dose: 5 mg Pantoprazole Sodium (Protonix Inj) 40 mg IVP Q12 [facility] Last Admin: 08/03/17 21:24 Dose: 40 mg Pneumococcal Polyvalent Vaccine (Pneumovax 23 Vaccine) 0.5 ml SC .ONCE ONE Stop: 08/04/17 10:01 Rifampin (Rifampin Cap) 300 mg PO TID [facility] Last Admin: 08/03/17 18:45 Dose: 300 mg Rosuvastatin Calcium (Crestor) 40 mg PO HS [facility] Last Admin: 08/03/17 21:23 Dose: 40 mg - Labs Labs: 08/04/17 06:21 08/04/17 06:21 PT 14.6 SECONDS (9.7-12.2) H 08/01/17 19:55 INR 1.3 08/01/17 19:55 APTT 47 SECONDS (21-34) H 08/01/17 19:55 - Constitutional Appears: Non-toxic, No Acute Distress - Head Exam Head Exam: NORMAL INSPECTION Additional comments: healed sternotomy scar - Eye Exam Eye Exam: EOMI - Neck Exam Neck Exam: absent: Meningismus - Respiratory Exam Respiratory Exam: Clear to Ausculation Bilateral, NORMAL BREATHING PATTERN. absent: Rales, Rhonchi, Wheezes - Cardiovascular Exam Cardiovascular Exam: Tachycardia, +S1, +S2 - GI/Abdominal Exam GI & Abdominal Exam: Soft, Normal Bowel Sounds. absent: Distended, Firm, Guarding, Rigid, Tenderness, Rebound - Extremities Exam Extremities Exam: absent: Pedal Edema, Tenderness Additional comments: Left knee: swelling; no erythema; has two stitches - Neurological Exam Neurological Exam: Awake - Skin Skin Exam: Warm Additional comments: inner thighs and backside: erythema over the intrigenous folds; there is a cream they are applying Assessment and Plan (1) New onset seizure Status: Acute (2) Hypokalemia Status: Acute (3) Hyponatremia Status: Acute (4) SIADH (syndrome of inappropriate ADH production) Status: Acute (5) Septic arthritis Status: Chronic (6) H/O mitral valve replacement Status: Chronic (7) Diabetes mellitus Status: Chronic (8) Hypertension Status: Chronic (9) Coronary artery disease Status: Chronic (10) Severe systolic congestive heart failure Status: Chronic (11) Atelectasis Status: Acute (12) PAF (paroxysmal atrial fibrillation) Status: Acute (13) Prophylactic measure Status: Acute Attending/Attestation - Attestation I have personally seen and examined this patient.: Yes I have fully participated in the care of the patient.: Yes I have reviewed all pertinent clinical information, including history, physical exam and plan: Yes Notes (Text): Assessment and Plan (1) New onset seizure Assessment & Plan: * 08/01: per review of ED triage note: Via ALS from [facility], prior notification of resident experiencing ''jerky movements few secs for a total of 3 episodes''; seizure-like activity witnessed by ALS, treated with ATIVAN 2MG IV GIVEN VIA PICC LINE TO RT ARM PER REPORT GIVEN; on NRB 100%, DAV=382aa/d * 08/01: Per review of ED note: In ambulance, given Ativan 2mg on route, NIHSS: 29 (noted for dysarthria and profound neglect does not recognize own hand or oreitns to one side. ED attempted to reverse with Flumazenil given patient appeared comatose. Intubated in the ED for airway protection with etomidate * Code stroke 08/01/17 GCS: 4 * Factors for seizure activity: * Precipitating factors: hyponatremia, hypokalemia, hypomagnesium * Antibiotic side effect: gentamicin (seizure, confusion, lethargy per uptodate ), rifampin (fatigue, drowsiness, confusion), Cefazolin (seizure) * pain medication: tramadol * Imaging: * CT head (08/01/17): nonspecific white matter changes. Acute infarction may be CT occult within first 24 hours. If a focal deficit persists, consider for further evaulation. Atherosclerotic disease of intracranial arteries. probable chronic lacunar infarcts within basal ganglia. * CT Head and neck (08/01/17): no flow limiting cervical cartoid artery stenosis or vessel occlusion. Patent vertebral arteries * CT Head (08/02/17): no evidence of acute infarct. Chronic microvascular white matter ischemic change. otherwise unremarkable. * Neurology (Dr. Cornejo) on board-->help appreciated * F/u EEG * D/c Cerebryx and Keppra secondary to worsening hyponatremia--Start Vimpat 100mg IVP Q12H 08/02 * Nephrology (Dr. Eddy) on board-->help appreciated * Seen patient last admission * Note: SIADH * PICC line (had been placed 07/24/17) per EMR * Pending MRI * Monitor electrolytes * Passed bedside swallow eval Status: Acute (2) Hypokalemia Assessment & Plan: * Low potassium * will need to be replete today Status: Acute (3) Hyponatremia Assessment & Plan: * Nephrology (Dr. Eddy) on the case-->help appreciated * SIADH * Na+: 121-->123-->121-->122-->124-->124 * 08/02 Urine Osmolality: 497, Urine random sodium:15 Imaging: * CT head (08/01/17): nonspecific white matter changes. Acute infarction may be CT occult within first 24 hours. If a focal deficit persists, consider for further evaulation. Atherosclerotic disease of intracranial arteries. probable chronic lacunar infarcts within basal ganglia * CT Head and neck (08/01/17): no flow limiting cervical cartoid artery stenosis or vessel occlusion. Patent vertebral arteries * CT Head (08/02/17): no evidence of acute infarct. Chronic microvascular white matter ischemic change. otherwise unremarkable. * 08/02 (12:45): Samsca 15mg PO X1 * 08/02 (00:19): Samsca 15mg PO X1 * 08/03: Samsca 30mg PO X1 (Rifampin will impact effectiveness per nephrology note) Status: Acute (4) SIADH (syndrome of inappropriate ADH production) Assessment & Plan: Nephrology (Dr. Eddy) on the case-->help appreciated * SIADH * Na+: 121-->123-->121-->122-->124-->124 * 08/02 Urine Osmolality: 497, Urine random sodium:15 * Check TSH, Prolactin-->Pending Imaging: * CT head (08/01/17): nonspecific white matter changes. Acute infarction may be CT occult within first 24 hours. If a focal deficit persists, consider for further evaulation. Atherosclerotic disease of intracranial arteries. probable chronic lacunar infarcts within basal ganglia * CT Head and neck (08/01/17): no flow limiting cervical cartoid artery stenosis or vessel occlusion. Patent vertebral arteries * CT Head (08/02/17): no evidence of acute infarct. Chronic microvascular white matter ischemic change. otherwise unremarkable. * CT Chest (08/02/17): small right pleural effusion and right lower lobe subsegmental atelectasis. Opacity seen at right lung base on earlier chest radiograph of the same date was likely artifactual due to overlying medical equipmen * 08/02 (12:45): Samsca 15mg PO X1 * 08/02 (00:19): Samsca 15mg PO X1 * 08/03 (00:19): Samsca 30mg PO X1 Status: Acute (5) Septic arthritis Assessment & Plan: * Infectious Disease (Dr. Jannie Avina) on the case-->help appreciated * From last admission: * On 07/19/17: Left knee arthroscopic. #1 I&D. #2 extensive synovectomy. #3 synovial biopsy and culture acquisition. #4 partial medial and lateral menisectomies. #5 chondroplasty trochlea * Post-Operative Diagnoses: Left knee #1 septic arthritis. #2 inflammatory synovitis. #3 crystal arthropathy/ pseudogout. #4 deg/complex medial meniscal tear. #5 deg/ complex lateral meniscal tear. #6 chondromalacia trochlea/MFC/ LFC, early DJD patella * 07/19/17: MSSA in Left knee and left Synovial sample * 07/16/17: Blood culture: no growth after 5 days * 07/23/17: Blood culture: no growth after 5 days * Patient was discharged on Ancef, Rifampin, and gentamicin. MICS available (07/26) and came back on 08/01/17. (about 6 days of 6 weeks completed) * Start Gentamicin Sulfate 70mg IVPB Q24H (active 08/04/17) X5 bags * Monitor renal function * Start Rifampin 300mg PO TID (08/02/17) * Will impact Samsca * Start Vancomycin 750mg IVPB Q12H (active since 08/03/17) * Monitor renal function Status: Chronic (6) H/O mitral valve replacement (bioprosthetic valve) Assessment & Plan: * Cardiology (Dr. Rowan) on the case-->help appreciated; Dr. Rush covering this weekend * Will need to follow-up in regards anticoagulation such as aspirin in regards to bioprosthetic valvue * Per cardiology, do not start chemical anticoagulation given recurrent history of GI bleeding * Echocardiogram (08/02/17): No ASD seen. * Echocardiogram (07/22/17): limited study, vegetation on MV cannot be excluded. Rec. Ubaldo to define MV/Calcifed mitral ring * Echocardiogram (07/01/17): systolic function is severely impaired. Anterior and septa; aldridge reveal dyskinesis with wall thinning. (indicative of prior transmural [place]), inferior wall is severely hypokinestic, lateral wall is mod to severely hypokinetic, Left atrium is moderately dilated, right atrium is moderately dilated, mild concentric left ventricular hypertrophy, mild mitral valve stenosis, * Cardiac cath: severe multivessel coronary artery disease, severe left ventricular systolic dysfunction (2017) * S/p CABG * Prosthetic valve * Unclear if will need UBALDO Status: Chronic (7) Diabetes mellitus Assessment & Plan: * [id number]: 5.1 * Controlled * Accuchecks Q6H Status: Chronic (8) Hypertension Assessment & Plan: * Lopressor 50mg PO BID * Crestor 2.5mg POqHS * Cozaar 25mg PO daily Status: Chronic (9) Coronary artery disease Status: Chronic (10) Severe systolic congestive heart failure Assessment & Plan: * On beta-meredith, arb, statin * On last admission recommends for outpatient AICD by Dr Rowan Status: Chronic (11) Atelectasis Assessment & Plan: * CT Chest (08/02/17): small right pleural effusion and right lower lobe subsegmental atelectasis. Opacity seen at right lung base on earlier chest radiograph of the same date was likely artifactual due to overlying medical equipment Status: Acute (12) Paroxysmal Atrial Fibrillation Assessment & Plan: * Lopressor 5mg IVPQ6H * Lopressor 50mg PO BID * 08/03: Per cardiology, hold chemical anticoagulation, patient has history of recurrent GI bleed, awaiting brain MRI, may or may not need UBALDO Status: Acute (13) Fungal Rash * Inner groin folds and back side * Start Lotrimin 1% cream (14) Prophylactic measure Assessment & Plan: * Heparin 5000 units [id number] * Protonix 40mg IVP Q12H * Bacid 1 cap PO BID * PT/OT eval * Wound care Awaiting brain MRI Hold chemical anticoagulation, patient has history of recurrent GI bleed PT/OT eval Monitor left knee since history of MSSA Arthritis Monitor renal function Patient may or may not need UBALDO Electrolytes repleted
[2017-08-04] MEDS ORDERED: Potassium Chloride 20 mEq ER Tab PO ONE (08:15)
[2017-08-04 09:07] LABS: BASO % 0.9 % (0.0-2.0); EOS % 0.2 % (0.0-4.0); LYMPH % 42.8 % (20.0-40.0); MONO % 8.1 % (0.0-10.0)
[2017-08-04 09:08] LABS: LYMPH # 2.1 K/uL (1.0-4.3); MONO # 0.4 K/uL (0.0-0.8); NEUT # 2.3 K/uL (1.8-7.0)
[2017-08-04] MEDS ORDERED: Pneumococcal 23-Valent Vaccine SC ONE (10:00)
[2017-08-04] MEDS ORDERED: Potassium Chloride 20 mEq/15 ml LIQ UD PO ONE (10:06)
[2017-08-04] MEDS ORDERED: Fosphenytoin 500 MG in Dextrose 5% In Water 50 ML IV STA (10:23)
[2017-08-04] MEDS ORDERED: levETIRAcetam 500 MG in Sodium Chloride 0.9% 100 ML IVPB SCH (10:30)
[2017-08-04] MEDS: Lactobacillus Acidophilus 500 MU Cap PO SCH ×2 (10:35→18:03)
--- NOTE | 2017-08-04 10:36 | CP.PCM.PN ---
Subjective - Date & Time of Evaluation Date of Evaluation: 08/04/17 Time of Evaluation: 10:31 - Subjective Subjective: Patient extubated, saturating well on nasal canula, awaiting speech and swallow , with partial right eye focal seizures Objective - Vital Signs/Intake and Output Vital Signs (last 24 hours): Temp Pulse Resp BP Pulse Ox 98.1 F 104 H 25 H 152/97 H 100 08/04/17 04:00 08/04/17 07:07 08/04/17 07:07 08/04/17 07:07 08/04/17 07:07 Intake and Output: 08/04/17 08/04/17 06:59 18:59 Intake Total 828 100 Output Total 700 50 Balance 128 50 - Medications Medications: Current Medications Albuterol/Ipratropium (Duoneb 3 Mg/0.5 Mg (3 Ml) Ud) 3 ml INH RQ6 [facility] Last Admin: 08/04/17 08:04 Dose: 3 ml Clotrimazole (Lotrimin 1%) 1 gm TOP BID [facility] Dextrose (Dextrose 50% Inj) 0 ml IV STAT PRN; Protocol PRN Reason: Hypoglycemia Protocol Last Admin: 08/03/17 17:55 Dose: 50 ml Heparin Sodium (Porcine) (Heparin) 5,000 units SC Q12 [facility] Last Admin: 08/03/17 21:23 Dose: 5,000 units Sodium Chloride (Sodium Chloride 0.9%) 1,000 mls @ 42 mls/hr IV .[id number] [facility] Last Admin: 08/03/17 18:46 Dose: 42 mls/hr Vancomycin HCl 750 mg/ Sodium (Chloride) 250 mls @ 166.6 mls/hr IVPB Q12H [facility] Last Admin: 08/03/17 23:16 Dose: 166.6 mls/hr Lacosamide 100 mg/ Sodium (Chloride) 110 mls @ 110 mls/hr IV Q12H [facility] Last Admin: 08/03/17 22:06 Dose: 110 mls/hr Gentamicin Sulfate 70 mg/ (Sodium Chloride) 101.75 mls @ 100 mls/hr IVPB Q24H [facility] Stop: 08/08/17 03:32 Last Admin: 08/04/17 06:00 Dose: 100 mls/hr Magnesium Sulfate/Dextrose (Magnesium Sulfate 1 Gm/100 Ml D5w) 1 gm in 100 mls @ 300 mls/hr IVPB Q30M [facility] Stop: 08/04/17 11:04 Potassium Chloride (Potassium Chloride 10 Meq/100 Ml) 10 meq in 100 mls @ 100 mls/hr IVPB Q1H [facility] Stop: 08/04/17 14:29 Levetiracetam 500 mg/ Sodium (Chloride) 105 mls @ 420 mls/hr IVPB Q12H [facility] Lactobacillus Acidophilus (Bacid Acidophilus) 1 cap PO BID [facility] Last Admin: 08/03/17 17:05 Dose: Not Given Losartan Potassium (Cozaar) 25 mg PO DAILY [facility] Last Admin: 08/03/17 10:18 Dose: Not Given Metoprolol Tartrate (Lopressor) 50 mg PO BID [facility] Last Admin: 08/03/17 17:05 Dose: Not Given Metoprolol Tartrate (Lopressor) 5 mg IVP Q6H [facility] Last Admin: 08/04/17 03:51 Dose: 5 mg Pantoprazole Sodium (Protonix Inj) 40 mg IVP Q12 [facility] Last Admin: 08/03/17 21:24 Dose: 40 mg Rifampin (Rifampin Cap) 300 mg PO TID [facility] Last Admin: 08/03/17 18:45 Dose: 300 mg Rosuvastatin Calcium (Crestor) 40 mg PO HS [facility] Last Admin: 08/03/17 21:23 Dose: 40 mg - Labs Labs: 08/04/17 06:21 08/04/17 06:21 PT 14.6 SECONDS (9.7-12.2) H 08/01/17 19:55 INR 1.3 08/01/17 19:55 APTT 47 SECONDS (21-34) H 08/01/17 19:55 - Constitutional Appears: Well, Non-toxic, No Acute Distress - Head Exam Head Exam: ATRAUMATIC, NORMAL INSPECTION - Eye Exam Eye Exam: Normal appearance - ENT Exam ENT Exam: Mucous Membranes Moist - Respiratory Exam Respiratory Exam: Clear to Ausculation Bilateral - Cardiovascular Exam Cardiovascular Exam: REGULAR RHYTHM, +S1, +S2 - GI/Abdominal Exam GI & Abdominal Exam: Normal Bowel Sounds - Extremities Exam Extremities Exam: Normal Inspection Assessment and Plan - Assessment and Plan (Free Text) Assessment: Patient admitted to ICU for seizures and is intubated. Patient extubated yesterday, awaiting speech and swallow eval --Seizures; etiology unknown; on vimpat, with focal seizures neurology input as to optimal AED -systolic Heart failure:continue asa, statin, acei, obtain echo to r/o PFO, lasix today -hyponatremia: continue tolvaptan as per nephro -P. A-fib: will benefit from AC (cardiology input) echo pending -Paralysis of right side: resolved -hypoxic respiratory failure: currently on nasal canula -chronic knee infection: patient will benefit from chronic supressive therapy, avoid nephrotoxic drugs, avoid free water -BGm q6hrs, ISS aspart -continue dvt/pud ppx -Patient is extubate and will avoid benzos if patient has seizures, use dilantin /keppra which does not affect respiratory depression.
[2017-08-04] MEDS: Clotrimazole 1% Cream(30 gm) TOP SCH ×2 (10:40→18:03)
[2017-08-04] MEDS: Magnesium Sulfate 1 gm in D5W 1 GM/100 ML BAG IVPB SCH ×2 (10:41→10:42)
[2017-08-04] MEDS: Potassium Chloride 20 mEq/15 ml LIQ UD PO SCH ×4 (10:44→22:28)
[2017-08-04] MEDS ORDERED: levETIRAcetam 1,000 MG in Sodium Chloride 0.9% 100 ML IVPB ONE (11:00)
[2017-08-04] MEDS: Lacosamide 200mg/20ml 100 MG in Sodium Chloride 0.9% 100 ML IV SCH ×2 (11:14→21:15)
--- NOTE | 2017-08-04 11:41 | CP.PCM.PN ---
Subjective - Date & Time of Evaluation Date of Evaluation: 08/04/17 Time of Evaluation: 11:38 - Subjective Subjective: Ms. Mobley was seen and examined at the bedside in ICU. She is awake with right side of her face with focal seizure. She turns her head towards anybody talking to her , but with no response. She is currently on AED.Her vital signs remains stable during the episode. Currently on nasal cannula for oxygen supplement, saturating at 100%. Her dilantin level was <3 and electrolytes such as potassium and magnesium are low with orders of potassium and magnesium riders. Objective - Vital Signs/Intake and Output Vital Signs (last 24 hours): Temp Pulse Resp BP Pulse Ox 98.1 F 104 H 25 H 131/78 100 08/04/17 04:00 08/04/17 07:07 08/04/17 07:07 08/04/17 11:16 08/04/17 07:07 Intake and Output: 08/04/17 08/04/17 06:59 18:59 Intake Total 828 100 Output Total 700 50 Balance 128 50 - Medications Medications: Current Medications Albuterol/Ipratropium (Duoneb 3 Mg/0.5 Mg (3 Ml) Ud) 3 ml INH RQ6 [facility] Last Admin: 08/04/17 08:04 Dose: 3 ml Clotrimazole (Lotrimin 1%) 1 gm TOP BID [facility] Last Admin: 08/04/17 10:40 Dose: 1 applic Dextrose (Dextrose 50% Inj) 0 ml IV STAT PRN; Protocol PRN Reason: Hypoglycemia Protocol Last Admin: 08/03/17 17:55 Dose: 50 ml Heparin Sodium (Porcine) (Heparin) 5,000 units SC Q12 [facility] Last Admin: 08/04/17 10:35 Dose: 5,000 units Sodium Chloride (Sodium Chloride 0.9%) 1,000 mls @ 42 mls/hr IV .[id number] [facility] Last Admin: 08/03/17 18:46 Dose: 42 mls/hr Vancomycin HCl 750 mg/ Sodium (Chloride) 250 mls @ 166.6 mls/hr IVPB Q12H [facility] Last Admin: 08/04/17 10:43 Dose: 166.6 mls/hr Lacosamide 100 mg/ Sodium (Chloride) 110 mls @ 110 mls/hr IV Q12H [facility] Last Admin: 08/04/17 11:14 Dose: 110 mls/hr Gentamicin Sulfate 70 mg/ (Sodium Chloride) 101.75 mls @ 100 mls/hr IVPB Q24H [facility] Stop: 08/08/17 03:32 Last Admin: 08/04/17 06:00 Dose: 100 mls/hr Potassium Chloride (Potassium Chloride 10 Meq/100 Ml) 10 meq in 100 mls @ 100 mls/hr IVPB Q1H [facility] Stop: 08/04/17 14:29 Last Admin: 08/04/17 10:42 Dose: 100 mls/hr Levetiracetam 500 mg/ Sodium (Chloride) 105 mls @ 420 mls/hr IVPB Q12H [facility] Lactobacillus Acidophilus (Bacid Acidophilus) 1 cap PO BID [facility] Last Admin: 08/04/17 10:35 Dose: Not Given Losartan Potassium (Cozaar) 25 mg PO DAILY [facility] Last Admin: 08/04/17 10:35 Dose: Not Given Metoprolol Tartrate (Lopressor) 50 mg PO BID [facility] Last Admin: 08/04/17 10:41 Dose: Not Given Metoprolol Tartrate (Lopressor) 5 mg IVP Q6H [facility] Last Admin: 08/04/17 10:39 Dose: 5 mg Pantoprazole Sodium (Protonix Inj) 40 mg IVP Q12 [facility] Last Admin: 08/04/17 10:39 Dose: 40 mg Potassium Chloride (Potassium Chloride Oral Soln) 40 meq PO Q6H [facility] Stop: 08/04/17 23:01 Last Admin: 08/04/17 11:17 Dose: 40 meq Rifampin (Rifampin Cap) 300 mg PO TID [facility] Last Admin: 08/04/17 10:39 Dose: 300 mg Rosuvastatin Calcium (Crestor) 40 mg PO HS [facility] Last Admin: 08/03/17 21:23 Dose: 40 mg - Labs Labs: 08/04/17 06:21 08/04/17 06:21 PT 14.6 SECONDS (9.7-12.2) H 08/01/17 19:55 INR 1.3 08/01/17 19:55 APTT 47 SECONDS (21-34) H 08/01/17 19:55 - Constitutional Appears: No Acute Distress - Head Exam Head Exam: NORMAL INSPECTION - Neurological Exam Neurological Exam: Awake Additional comments: She moves her upper extremities but not the lower extremities, left knee post procedure last month. She has the right facial focal seizure Assessment and Plan (1) Seizure Assessment & Plan: Case discussed with Dr. Cornejo, continue all current medical regimen including current AED.Recommend Keppra 100 mg IV for one dose and Keppra 500 mg IVPB Q 12 hours. Recommend to treat any underlying electrolyte abnormalities. Status: Acute
[2017-08-04 20:15] LABS: OSMOLALITY,URINE 316 mosm/kg (300-1000)
[2017-08-04 20:29] LABS: BLOOD UREA NITROGEN 10 mg/dL (7-17); CALCIUM 7.8 mg/dl (8.6-10.4); GFR AFRICAN-AMERICAN > 60; GFR NON-AFRICAN AMERICAN > 60
[2017-08-04] MEDS: levETIRAcetam 500 MG in Sodium Chloride 0.9% 100 ML IVPB SCH (21:00)
--- NOTE | 2017-08-04 22:41 | CP.PCM.PN ---
Subjective - Date & Time of Evaluation Date of Evaluation: 08/04/17 Time of Evaluation: 12:00 - Subjective Subjective: Noted to have facial tick today; still not responding to verbal stimuli; Objective - Vital Signs/Intake and Output Vital Signs (last 24 hours): Temp Pulse Resp BP Pulse Ox 98.7 F 97 H 25 H 141/87 99 08/04/17 16:00 08/04/17 19:07 08/04/17 19:07 08/04/17 19:07 08/04/17 19:07 Intake and Output: 08/04/17 08/05/17 18:59 06:59 Intake Total 6 100 Output Total 646 Balance 1380 100 - Medications Medications: Current Medications Albuterol/Ipratropium (Duoneb 3 Mg/0.5 Mg (3 Ml) Ud) 3 ml INH RQ6 [facility] Last Admin: 08/04/17 19:12 Dose: 3 ml Clotrimazole (Lotrimin 1%) 1 gm TOP BID [facility] Last Admin: 08/04/17 18:03 Dose: 1 applic Dextrose (Dextrose 50% Inj) 0 ml IV STAT PRN; Protocol PRN Reason: Hypoglycemia Protocol Last Admin: 08/03/17 17:55 Dose: 50 ml Furosemide (Lasix) 20 mg IVP Q12 [facility] Heparin Sodium (Porcine) (Heparin) 5,000 units SC Q12 [facility] Last Admin: 08/04/17 21:02 Dose: 5,000 units Vancomycin HCl 750 mg/ Sodium (Chloride) 250 mls @ 166.6 mls/hr IVPB Q12H [facility] Last Admin: 08/04/17 22:29 Dose: 166.6 mls/hr Lacosamide 100 mg/ Sodium (Chloride) 110 mls @ 110 mls/hr IV Q12H [facility] Last Admin: 08/04/17 21:15 Dose: 110 mls/hr Gentamicin Sulfate 70 mg/ (Sodium Chloride) 101.75 mls @ 100 mls/hr IVPB Q24H [facility] Stop: 08/08/17 03:32 Last Admin: 08/04/17 06:00 Dose: 100 mls/hr Levetiracetam 500 mg/ Sodium (Chloride) 105 mls @ 420 mls/hr IVPB Q12H [facility] Last Admin: 08/04/17 21:00 Dose: 420 mls/hr Lactobacillus Acidophilus (Bacid Acidophilus) 1 cap PO BID [facility] Last Admin: 08/04/17 18:03 Dose: 1 cap Losartan Potassium (Cozaar) 25 mg PO DAILY [facility] Last Admin: 08/04/17 10:35 Dose: Not Given Metoprolol Tartrate (Lopressor) 50 mg PO BID [facility] Last Admin: 08/04/17 18:04 Dose: 50 mg Metoprolol Tartrate (Lopressor) 5 mg IVP Q6H [facility] Last Admin: 08/04/17 20:45 Dose: 5 mg Pantoprazole Sodium (Protonix Inj) 40 mg IVP Q12 [facility] Last Admin: 08/04/17 21:00 Dose: 40 mg Potassium Chloride (Potassium Chloride Oral Soln) 40 meq PO Q6H [facility] Stop: 08/04/17 23:01 Last Admin: 08/04/17 22:28 Dose: 40 meq Rifampin (Rifampin Cap) 300 mg PO TID [facility] Last Admin: 08/04/17 18:02 Dose: 300 mg Rosuvastatin Calcium (Crestor) 40 mg PO HS [facility] Last Admin: 08/04/17 21:03 Dose: 40 mg Tolvaptan (Samsca) 30 mg PO DAILY [facility] Stop: 08/06/17 22:40 - Labs Labs: 08/04/17 06:21 08/04/17 20:08 PT 14.6 SECONDS (9.7-12.2) H 08/01/17 19:55 INR 1.3 08/01/17 19:55 APTT 47 SECONDS (21-34) H 08/01/17 19:55 - Constitutional Appears: Non-toxic, No Acute Distress - Eye Exam Eye Exam: absent: Scleral icterus - ENT Exam ENT Exam: Mucous Membranes Moist - Respiratory Exam Respiratory Exam: absent: Respiratory Distress Additional comments: mild basal rales; - Cardiovascular Exam Cardiovascular Exam: RRR, +S1, +S2 - GI/Abdominal Exam GI & Abdominal Exam: Soft. absent: Distended, Tenderness - Extremities Exam Additional comments: mild/moderate edema of dependent area - Neurological Exam Neurological Exam: Awake Additional comments: not responding to verbal stimuli - Psychiatric Exam Psychiatric exam: absent: Agitated - Skin Skin Exam: Warm. absent: Cyanosis Assessment and Plan (1) Hyponatremia Assessment & Plan: Not significantly improving with tolvaptan with urine osm still high; likely due to decreased tolvaptan levels while on rifampin; will continue with tolvaptan 30 mg daily; standing lasix will help also; Status: Acute (2) CHF (congestive heart failure) Assessment & Plan: With severe systolic dysfunction; started on IV lasix today, should continue 20 mg IV q8-12h; Status: Chronic (3) Septic arthritis Assessment & Plan: On vanco and genta; checking vanco trough level in am; Status: Chronic
--- NOTE | 2017-08-05 00:59 | CT ---
EXAM: CT Head Without Intravenous Contrast CLINICAL HISTORY: 72 years old, female; Pain; Headache and other: Right hemiparesis; Patient HX: 08-02-17 TECHNIQUE: Axial computed tomography images of the head/brain without intravenous contrast. All CT scans at this facility use one or more dose reduction techniques, viz.: automated exposure control; ma/kV adjustment per patient size (including targeted exams where dose is matched to indication; i.e. head); or iterative reconstruction technique. 372 images are submitted. Coronal and sagittal reformatted images were created and reviewed. Axial reformatted images were created and reviewed. COMPARISON: CT - HEAD W/O CONTRAST 2017-08-02 16:14 FINDINGS: Brain: CT brain old No hemorrhage. No significant white matter disease. Ventricles: Unremarkable. No ventriculomegaly. Bones/joints: Unremarkable. No acute fracture. Soft tissues: Unremarkable. Vasculature: Vascular calcifications. Sinuses: Unremarkable. No acute sinusitis. Mastoid air cells: Patchy mastoid disease. Orbits: The globe and lens are intact. Dental: Edentulous maxilla and mandible. Tubes, lines and devices: There is feeding tube in the nasopharynx which is not confirmed. IMPRESSION: No evidence of an acute intracranial hemorrhage, midline shift or mass effect is identified.
[2017-08-05] MEDS: Albuterol-Ipratrop 3 mg / 0.5 (3 ml) UD INH SCH ×4 (01:47→19:52)
[2017-08-05] MEDS: Gentamicin 70 MG in Sodium Chloride 0.9% 100 ML IVPB SCH (02:08)
[2017-08-05] MEDS: Metoprolol 1 mg/ml Inj IVP SCH ×4 (03:44→21:11)
[2017-08-05 05:38] LABS: ABG ALLEN TEST POS; ARTERIAL BLOOD GAS HCO3 27.9 mmol/L (21-28); ARTERIAL BLOOD GAS PCO2 43 mm/Hg (35-45); ARTERIAL BLOOD GAS PH 7.43 (7.35-7.45); ARTERIAL BLOOD GAS PO2 159 mm/Hg (80-100); ARTERIAL BLOOD GAS TCO2 29.8 mmol/L (22-28)
[2017-08-05 06:43] LABS: ALB/GLOB RATIO 0.5 (1.0-2.1); ALBUMIN 2.6 g/dL (3.5-5.0); ALT/SGPT 19 U/L (9-52); AST/SGOT 47 U/L (14-36); BLOOD UREA NITROGEN 11 mg/dL (7-17); CALCIUM 7.7 mg/dl (8.6-10.4); GFR AFRICAN-AMERICAN > 60; GFR NON-AFRICAN AMERICAN > 60; MAGNESIUM 1.9 mg/dL (1.6-2.3)
[2017-08-05 07:15] LABS: BASO # 0.1 K/uL (0.0-0.2); BASO % 1.2 % (0.0-2.0); EOS % 0.5 % (0.0-4.0); HEMOGLOBIN 8.4 g/dL (11.0-16.0); LYMPH # 0.9 K/uL (1.0-4.3); LYMPH % 15.3 % (20.0-40.0); MEAN CELL VOLUME 87.9 fL (81.0-99.0); MEAN CORPUSCULAR HEMOGLOBIN 29.4 pg (27.0-31.0); MEAN CORPUSCULAR HGB CONC 33.4 g/dL (33.0-37.0); MEAN PLATELET VOLUME 8.8 fL (7.2-11.7); MONO # 0.5 K/uL (0.0-0.8); MONO % 8.8 % (0.0-10.0); NEUT # 4.4 K/uL (1.8-7.0); NEUT % 74.2 % (50.0-75.0); NRBC % 0.1 % (0.0-2.0); RBC 2.87 Mil/uL (3.80-5.20); RED CELL DISTRIBUTION WIDTH 17.2 % (11.5-14.5); WHITE BLOOD COUNT 5.9 K/uL (4.8-10.8)
--- NOTE | 2017-08-05 07:24 | CP.PCM.PN ---
Subjective - Date & Time of Evaluation Date of Evaluation: 08/05/17 Time of Evaluation: 07:20 - Subjective Subjective: Ms. Mobley was seen and examined at the bedside in ICU. She opens her eyes spontaneously with left side gaze, pupillary is reactive but sluggish, looks at the person talking but doesn't follow command, with right hemiparesis She moves her left upper extremity spontaneously, but right upper extremity and bilateral lower extremities are flaccid. CT scan of the head done last night showed no evidence of an acute intracranial hemorrhage, midline shift, or mass effect are identified. She remains with left knee sutures intact with knee swollen. She had focal seizure yesterday, AED was adjusted. Objective - Vital Signs/Intake and Output Vital Signs (last 24 hours): Temp Pulse Resp BP Pulse Ox 100.7 F H 101 H 27 H 133/85 99 08/05/17 00:00 08/05/17 06:07 08/05/17 06:07 08/05/17 06:07 08/05/17 06:07 Intake and Output: 08/05/17 08/05/17 06:59 18:59 Intake Total 670 Output Total 755 Balance -85 - Medications Medications: Current Medications Albuterol/Ipratropium (Duoneb 3 Mg/0.5 Mg (3 Ml) Ud) 3 ml INH RQ6 [facility] Last Admin: 08/05/17 01:47 Dose: 3 ml Clotrimazole (Lotrimin 1%) 1 gm TOP BID [facility] Last Admin: 08/04/17 18:03 Dose: 1 applic Dextrose (Dextrose 50% Inj) 0 ml IV STAT PRN; Protocol PRN Reason: Hypoglycemia Protocol Last Admin: 08/03/17 17:55 Dose: 50 ml Furosemide (Lasix) 20 mg IVP Q12 [facility] Last Admin: 08/04/17 23:59 Dose: 20 mg Heparin Sodium (Porcine) (Heparin) 5,000 units SC Q12 [facility] Last Admin: 08/04/17 21:02 Dose: 5,000 units Vancomycin HCl 750 mg/ Sodium (Chloride) 250 mls @ 166.6 mls/hr IVPB Q12H [facility] Last Admin: 08/04/17 22:29 Dose: 166.6 mls/hr Lacosamide 100 mg/ Sodium (Chloride) 110 mls @ 110 mls/hr IV Q12H [facility] Last Admin: 08/04/17 21:15 Dose: 110 mls/hr Gentamicin Sulfate 70 mg/ (Sodium Chloride) 101.75 mls @ 100 mls/hr IVPB Q24H [facility] Stop: 08/08/17 03:32 Last Admin: 08/05/17 02:08 Dose: 100 mls/hr Levetiracetam 500 mg/ Sodium (Chloride) 105 mls @ 420 mls/hr IVPB Q12H [facility] Last Admin: 08/04/17 21:00 Dose: 420 mls/hr Lactobacillus Acidophilus (Bacid Acidophilus) 1 cap PO BID [facility] Last Admin: 08/04/17 18:03 Dose: 1 cap Losartan Potassium (Cozaar) 25 mg PO DAILY [facility] Last Admin: 08/04/17 10:35 Dose: Not Given Metoprolol Tartrate (Lopressor) 50 mg PO BID [facility] Last Admin: 08/04/17 18:04 Dose: 50 mg Metoprolol Tartrate (Lopressor) 5 mg IVP Q6H [facility] Last Admin: 08/05/17 03:44 Dose: 5 mg Pantoprazole Sodium (Protonix Inj) 40 mg IVP Q12 [facility] Last Admin: 08/04/17 21:00 Dose: 40 mg Rifampin (Rifampin Cap) 300 mg PO TID [facility] Last Admin: 08/04/17 18:02 Dose: 300 mg Rosuvastatin Calcium (Crestor) 40 mg PO HS [facility] Last Admin: 08/04/17 21:03 Dose: 40 mg Tolvaptan (Samsca) 30 mg PO DAILY [facility] Stop: 08/06/17 22:40 - Labs Labs: 08/05/17 06:17 08/05/17 06:13 PT 14.6 SECONDS (9.7-12.2) H 08/01/17 19:55 INR 1.3 08/01/17 19:55 APTT 47 SECONDS (21-34) H 08/01/17 19:55 - Constitutional Appears: No Acute Distress - Head Exam Head Exam: NORMAL INSPECTION - Neurological Exam Neurological Exam: Awake Neuro motor strength exam: Left Upper Extremity: 2/1, Right Upper Extremity: 0, Left Lower Extremity: 0, Right Lower Extremity: 0 Additional comments: Right side hemiparesis, non-verbal, unable to follow simple commands. Assessment and Plan (1) Seizure Assessment & Plan: Case discussed with Dr. Castañeda, continue all current medical regimen. Recommend MRI of the brain, MRA of the head and neck to evaluate her new onset of right side hemiparesis, repeat EEG to evaluate her seizure. Status: Acute
--- NOTE | 2017-08-05 08:13 | CP.PCM.PN ---
Subjective - Date & Time of Evaluation Date of Evaluation: 08/05/17 Time of Evaluation: 08:00 - Subjective Subjective: patient remains in ICU. events noted. Objective - Vital Signs/Intake and Output Vital Signs (last 24 hours): Temp Pulse Resp BP Pulse Ox 100.7 F H 103 H 22 143/81 100 08/05/17 00:00 08/05/17 07:07 08/05/17 07:07 08/05/17 07:07 08/05/17 07:07 Intake and Output: 08/05/17 08/05/17 06:59 18:59 Intake Total 670 Output Total 755 Balance -85 - Medications Medications: Current Medications Albuterol/Ipratropium (Duoneb 3 Mg/0.5 Mg (3 Ml) Ud) 3 ml INH RQ6 [facility] Last Admin: 08/05/17 08:01 Dose: 3 ml Clotrimazole (Lotrimin 1%) 1 gm TOP BID [facility] Last Admin: 08/04/17 18:03 Dose: 1 applic Dextrose (Dextrose 50% Inj) 0 ml IV STAT PRN; Protocol PRN Reason: Hypoglycemia Protocol Last Admin: 08/03/17 17:55 Dose: 50 ml Furosemide (Lasix) 20 mg IVP Q12 [facility] Last Admin: 08/04/17 23:59 Dose: 20 mg Heparin Sodium (Porcine) (Heparin) 5,000 units SC Q12 [facility] Last Admin: 08/04/17 21:02 Dose: 5,000 units Vancomycin HCl 750 mg/ Sodium (Chloride) 250 mls @ 166.6 mls/hr IVPB Q12H [facility] Last Admin: 08/04/17 22:29 Dose: 166.6 mls/hr Lacosamide 100 mg/ Sodium (Chloride) 110 mls @ 110 mls/hr IV Q12H [facility] Last Admin: 08/04/17 21:15 Dose: 110 mls/hr Gentamicin Sulfate 70 mg/ (Sodium Chloride) 101.75 mls @ 100 mls/hr IVPB Q24H [facility] Stop: 08/08/17 03:32 Last Admin: 08/05/17 02:08 Dose: 100 mls/hr Levetiracetam 500 mg/ Sodium (Chloride) 105 mls @ 420 mls/hr IVPB Q12H [facility] Last Admin: 08/04/17 21:00 Dose: 420 mls/hr Lactobacillus Acidophilus (Bacid Acidophilus) 1 cap PO BID [facility] Last Admin: 08/04/17 18:03 Dose: 1 cap Losartan Potassium (Cozaar) 25 mg PO DAILY [facility] Last Admin: 08/04/17 10:35 Dose: Not Given Metoprolol Tartrate (Lopressor) 50 mg PO BID [facility] Last Admin: 08/04/17 18:04 Dose: 50 mg Metoprolol Tartrate (Lopressor) 5 mg IVP Q6H [facility] Last Admin: 08/05/17 03:44 Dose: 5 mg Pantoprazole Sodium (Protonix Inj) 40 mg IVP Q12 [facility] Last Admin: 08/04/17 21:00 Dose: 40 mg Rifampin (Rifampin Cap) 300 mg PO TID [facility] Last Admin: 08/04/17 18:02 Dose: 300 mg Rosuvastatin Calcium (Crestor) 40 mg PO HS [facility] Last Admin: 08/04/17 21:03 Dose: 40 mg Tolvaptan (Samsca) 30 mg PO DAILY [facility] Stop: 08/06/17 22:40 - Labs Labs: 08/05/17 06:17 08/05/17 06:13 PT 14.6 SECONDS (9.7-12.2) H 08/01/17 19:55 INR 1.3 08/01/17 19:55 APTT 47 SECONDS (21-34) H 08/01/17 19:55 - Constitutional Appears: Chronically Ill - Head Exam Head Exam: NORMAL INSPECTION - Eye Exam Eye Exam: Normal appearance - ENT Exam ENT Exam: Mucous Membranes Moist - Neck Exam Neck Exam: Full ROM. absent: Lymphadenopathy - Respiratory Exam Respiratory Exam: Decreased Breath Sounds - Cardiovascular Exam Cardiovascular Exam: Tachycardia, REGULAR RHYTHM - GI/Abdominal Exam GI & Abdominal Exam: Normal Bowel Sounds - Rectal Exam Rectal Exam: Deferred - Extremities Exam Extremities Exam: absent: Pedal Edema - Back Exam Back Exam: NORMAL INSPECTION - Neurological Exam Neurological Exam: Awake Additional comments: hemiparesis - Skin Skin Exam: Normal Color Assessment and Plan (1) PAF (paroxysmal atrial fibrillation) Assessment & Plan: patient has had previous episodes of anemia and GI bleed. She has not been anticoagulated for this reason. no previous history of atrial fibrillation. Status: Acute (2) Coronary artery disease Assessment & Plan: s/p CABG. 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 antibiotic therapy with Dr Avina. If CVA will need to assess if patient has septic emboli. A Status: Acute
--- NOTE | 2017-08-05 08:37 | RAD ---
HISTORY: lungs COMPARISON: 08/02/2017 FINDINGS: LUNGS: No active pulmonary disease. PLEURA: No significant pleural effusion identified, no pneumothorax apparent. CARDIOVASCULAR: CABG. Tortuous descending thoracic aorta with atherosclerotic calcification. Normal heart size. Nasogastric tube tip seen at the level of the GE junction and should be advanced. OSSEOUS STRUCTURES: No significant abnormalities. VISUALIZED UPPER ABDOMEN: Normal. OTHER FINDINGS: None. IMPRESSION: No active disease. NG tube tip should be advanced and currently resides at the level of the GE junction
[2017-08-05] MEDS: levETIRAcetam 500 MG in Sodium Chloride 0.9% 100 ML IVPB SCH ×2 (09:43→21:12)
[2017-08-05] MEDS: Lacosamide 200mg/20ml 100 MG in Sodium Chloride 0.9% 100 ML IV SCH ×2 (09:43→21:50)
[2017-08-05] MEDS: Lactobacillus Acidophilus 500 MU Cap PO SCH ×2 (10:01→18:03)
[2017-08-05] MEDS: Clotrimazole 1% Cream(30 gm) TOP SCH ×2 (10:02→18:08)
[2017-08-05] MEDS: Magnesium Sulfate 1 gm in D5W 1 GM/100 ML BAG IVPB SCH ×2 (10:39→13:18)
--- NOTE | 2017-08-05 12:09 | CP.CCUPN ---
<Scottie Nogueira R - Last Filed: 08/05/17 12:10> CCU Subjective - Physician Review Subjective (Free Text): Patient seen and examined. ROS unobtainable due to intubation. Saturating well on nasal cannula. NG tube in place. Tachycardic, rhythm on monitor is sinus tach. Will replete magnesium. Will order abg, procalcitonin, cpk. CCU Objective - Vital Signs / Intake & Output Vital Signs (Last 4 hours): Vital Signs BP 08/05/17 10:01 136/76 Intake and Output (Last 8hrs): Intake & Output 08/04/17 08/05/17 08/05/17 22:59 06:59 14:59 Intake Total 660 410 Output Total 381 595 Balance 279 -185 Weight 139 lb 5.314 oz Intake: Intake, IV Amount 600 350 R PICC line 500 350 Right PICC 100 Oral 0 0 Other 60 60 Output: Urine 380 595 Urethral (Castañeda) 380 595 Stool 1 - Physical Exam Physical Exam Limitations: Positive for: Altered Mental Status Head: Positive for: Atraumatic, Normocephalic Mouth: Positive for: Moist Mucous Membranes Neck: Positive for: Normal Range of Motion Respiratory/Chest: Positive for: Clear to Auscultation, Good Air Exchange Cardiovascular: Positive for: Normal S1, S2 Abdomen: Positive for: Normal Bowel Sounds. Negative for: Tenderness, Distention Upper Extremity: Positive for: Normal Inspection Lower Extremity: Positive for: Normal Inspection, Other (left knee sutures intact w/ knee swollen) Psychiatric: Negative for: Alert, Oriented x 3 - Medications Active Medications: Active Medications Generic Name Dose Route Start Last Admin Trade Name Freq PRN Reason Stop Dose Admin Acetaminophen 650 mg 08/05/17 10:23 Tylenol 650mg/20.3ml Solution Ud PO Q6H PRN Temperature >100.4 Albuterol/Ipratropium 3 ml 08/02/17 08:00 08/05/17 08:01 Duoneb 3 Mg/0.5 Mg (3 Ml) Ud INH 3 ml RQ6 KODAK Administration Clotrimazole 1 gm 08/04/17 10:00 08/05/17 10:02 Lotrimin 1% TOP 1 applic BID KODAK Administration Dextrose 0 ml 08/03/17 17:06 08/03/17 17:55 Dextrose 50% Inj IV 50 ml STAT PRN Administration Hypoglycemia Protocol Protocol Furosemide 20 mg 08/04/17 22:45 08/05/17 10:01 Lasix IVP 20 mg Q12 KODAK Administration Vancomycin HCl 750 mg/ Sodium 250 mls @ 166.6 mls/hr 08/03/17 23:00 08/04/17 22:29 Chloride IVPB 166.6 mls/hr Q12H KODAK Administration Lacosamide 100 mg/ Sodium 110 mls @ 110 mls/hr 08/03/17 22:00 08/05/17 09:43 Chloride IV 110 mls/hr Q12H KODAK Administration Gentamicin Sulfate 70 mg/ 101.75 mls @ 100 mls/hr 08/04/17 02:30 08/05/17 02: 08 Sodium Chloride IVPB 08/08/17 03:32 100 mls/hr Q24H KODAK Administration Levetiracetam 500 mg/ Sodium 105 mls @ 420 mls/hr 08/04/17 22:00 08/05/17 09: 43 Chloride IVPB 420 mls/hr Q12H KODAK Administration Lactobacillus Acidophilus 1 cap 08/02/17 10:00 08/05/17 10:01 Bacid Acidophilus PO 1 cap BID KODAK Administration Losartan Potassium 25 mg 08/02/17 10:00 08/05/17 10:03 Cozaar PO 25 mg DAILY KODAK Administration Metoprolol Tartrate 50 mg 08/02/17 10:00 08/04/17 18:04 Lopressor PO 50 mg BID KODAK Administration Metoprolol Tartrate 5 mg 08/03/17 09:15 08/05/17 10:01 Lopressor IVP 5 mg Q6H KODAK Administration Pantoprazole Sodium 40 mg 08/03/17 10:00 08/05/17 10:01 Protonix Inj IVP 40 mg Q12 KODAK Administration Rifampin 300 mg 08/02/17 10:00 08/05/17 10:01 Rifampin Cap PO 300 mg TID KODAK Administration Rosuvastatin Calcium 40 mg 08/03/17 08:34 08/04/17 21:03 Crestor PO 40 mg HS KODAK Administration Tolvaptan 30 mg 08/05/17 10:00 Samsca PO 08/06/17 22:40 DAILY KODAK - Patient Studies Lab Studies: Microbiology Studies 08/04/17 02:20 Blood Culture - Preliminary Blood-Thru Central Line NO GROWTH AFTER 24 HOURS 08/04/17 02:20 Blood Culture - Preliminary Blood-Thru Central Line NO GROWTH AFTER 24 HOURS Lab Studies 08/05/17 08/05/17 08/05/17 Range/Units 06:17 06:13 05:33 WBC 5.9 (4.8-10.8) K/uL RBC 2.87 L (3.80-5.20) Mil/uL Hgb 8.4 L (11.0-16.0) g/dL Hct 25.3 L (34.0-47.0) % MCV 87.9 (81.0-99.0) fL MCH 29.4 (27.0-31.0) pg MCHC 33.4 (33.0-37.0) g/dL RDW 17.2 H (11.5-14.5) % Plt Count 214 (130-400) K/uL MPV 8.8 (7.2-11.7) fL Neut % (Auto) 74.2 (50.0-75.0) % Lymph % (Auto) 15.3 L (20.0-40.0) % Millard % (Auto) 8.8 (0.0-10.0) % Eos % (Auto) 0.5 (0.0-4.0) % Baso % (Auto) 1.2 (0.0-2.0) % Neut # (Auto) 4.4 (1.8-7.0) K/uL Lymph # (Auto) 0.9 L (1.0-4.3) K/uL Millard # (Auto) 0.5 (0.0-0.8) K/uL Eos # (Auto) 0.0 (0.0-0.7) K/uL Baso # (Auto) 0.1 (0.0-0.2) K/uL Puncture Site pCO2 (35-45) mm/Hg pO2 (80-100) mm/Hg HCO3 (21-28) mmol/L ABG pH (7.35-7.45) ABG Total CO2 (22-28) mmol/L ABG O2 Saturation (95-98) % ABG Base Excess (-2.0-3.0) mmol/L Reji Test ABG Potassium (3.6-5.2) mmol/L Glucose (65-105) mg/dl Lactate (0.7-2.1) mmol/L Liter Flow Sodium 127 L (132-148) mmol/L Potassium 4.7 (3.6-5.2) mmol/L Chloride 95 L (98-107) mmol/L Carbon Dioxide 28 (22-30) mmol/L Anion Gap 10 (10-20) BUN 11 (7-17) mg/dL Creatinine 0.9 (0.7-1.2) mg/dL Est GFR ( Amer) > 60 Est GFR (Non-Af Amer) > 60 POC Glucose (mg/dL) 88 (65-110) mg/dL Random Glucose 87 (65-105) mg/dL Calcium 7.7 L (8.6-10.4) mg/dl Phosphorus 2.7 (2.5-4.5) mg/dL Magnesium 1.9 (1.6-2.3) mg/dL Total Bilirubin 0.5 (0.2-1.3) mg/dL AST 47 H (14-36) U/L ALT 19 (9-52) U/L Alkaline Phosphatase 115 (38-126) U/L Total Creatine Kinase 68 (30-135) U/L Total Protein 7.3 (6.3-8.3) g/dL Albumin 2.6 L (3.5-5.0) g/dL Globulin 4.8 H (2.2-3.9) gm/dL Albumin/Globulin Ratio 0.5 L (1.0-2.1) TSH 3rd Generation 3.85 (0.46-4.68) mIU/L Arterial Blood Potassium (3.6-5.2) mmol/L Urine Osmolality (300-1000) mosm/kg Ur Random Sodium mmol/L 08/05/17 08/04/17 08/04/17 Range/Units 05:09 23:39 20:08 WBC (4.8-10.8) K/uL RBC (3.80-5.20) Mil/uL Hgb (11.0-16.0) g/dL Hct (34.0-47.0) % MCV (81.0-99.0) fL MCH (27.0-31.0) pg MCHC (33.0-37.0) g/dL RDW (11.5-14.5) % Plt Count (130-400) K/uL MPV (7.2-11.7) fL Neut % (Auto) (50.0-75.0) % Lymph % (Auto) (20.0-40.0) % Millard % (Auto) (0.0-10.0) % Eos % (Auto) (0.0-4.0) % Baso % (Auto) (0.0-2.0) % Neut # (Auto) (1.8-7.0) K/uL Lymph # (Auto) (1.0-4.3) K/uL Millard # (Auto) (0.0-0.8) K/uL Eos # (Auto) (0.0-0.7) K/uL Baso # (Auto) (0.0-0.2) K/uL Puncture Site Rr pCO2 43 (35-45) mm/Hg pO2 159 H (80-100) mm/Hg HCO3 27.9 (21-28) mmol/L ABG pH 7.43 (7.35-7.45) ABG Total CO2 29.8 H (22-28) mmol/L ABG O2 Saturation 100.0 H (95-98) % ABG Base Excess 3.7 H (-2.0-3.0) mmol/L Reji Test Pos ABG Potassium 4.7 (3.6-5.2) mmol/L Glucose 89 (65-105) mg/dl Lactate 0.9 (0.7-2.1) mmol/L Liter Flow 3.0 Sodium 132.0 127 L (132-148) mmol/L Potassium 5.1 (3.6-5.2) mmol/L Chloride 99.0 92 L (98-107) mmol/L Carbon Dioxide 30 (22-30) mmol/L Anion Gap 10 (10-20) BUN 10 (7-17) mg/dL Creatinine 0.9 (0.7-1.2) mg/dL Est GFR ( Amer) > 60 Est GFR (Non-Af Amer) > 60 POC Glucose (mg/dL) 87 (65-110) mg/dL Random Glucose 86 (65-105) mg/dL Calcium 7.8 L (8.6-10.4) mg/dl Phosphorus (2.5-4.5) mg/dL Magnesium (1.6-2.3) mg/dL Total Bilirubin (0.2-1.3) mg/dL AST (14-36) U/L ALT (9-52) U/L Alkaline Phosphatase (38-126) U/L Total Creatine Kinase (30-135) U/L Total Protein (6.3-8.3) g/dL Albumin (3.5-5.0) g/dL Globulin (2.2-3.9) gm/dL Albumin/Globulin Ratio (1.0-2.1) TSH 3rd Generation (0.46-4.68) mIU/L Arterial Blood Potassium 4.7 (3.6-5.2) mmol/L Urine Osmolality (300-1000) mosm/kg Ur Random Sodium mmol/L 08/04/17 08/04/17 08/04/17 Range/Units 20:08 18:04 12:16 WBC (4.8-10.8) K/uL RBC (3.80-5.20) Mil/uL Hgb (11.0-16.0) g/dL Hct (34.0-47.0) % MCV (81.0-99.0) fL MCH (27.0-31.0) pg MCHC (33.0-37.0) g/dL RDW (11.5-14.5) % Plt Count (130-400) K/uL MPV (7.2-11.7) fL Neut % (Auto) (50.0-75.0) % Lymph % (Auto) (20.0-40.0) % Millard % (Auto) (0.0-10.0) % Eos % (Auto) (0.0-4.0) % Baso % (Auto) (0.0-2.0) % Neut # (Auto) (1.8-7.0) K/uL Lymph # (Auto) (1.0-4.3) K/uL Millard # (Auto) (0.0-0.8) K/uL Eos # (Auto) (0.0-0.7) K/uL Baso # (Auto) (0.0-0.2) K/uL Puncture Site pCO2 (35-45) mm/Hg pO2 (80-100) mm/Hg HCO3 (21-28) mmol/L ABG pH (7.35-7.45) ABG Total CO2 (22-28) mmol/L ABG O2 Saturation (95-98) % ABG Base Excess (-2.0-3.0) mmol/L Reji Test ABG Potassium (3.6-5.2) mmol/L Glucose (65-105) mg/dl Lactate (0.7-2.1) mmol/L Liter Flow Sodium (132-148) mmol/L Potassium (3.6-5.2) mmol/L Chloride (98-107) mmol/L Carbon Dioxide (22-30) mmol/L Anion Gap (10-20) BUN (7-17) mg/dL Creatinine (0.7-1.2) mg/dL Est GFR ( Amer) Est GFR (Non-Af Amer) POC Glucose (mg/dL) 75 98 (65-110) mg/dL Random Glucose (65-105) mg/dL Calcium (8.6-10.4) mg/dl Phosphorus (2.5-4.5) mg/dL Magnesium (1.6-2.3) mg/dL Total Bilirubin (0.2-1.3) mg/dL AST (14-36) U/L ALT (9-52) U/L Alkaline Phosphatase (38-126) U/L Total Creatine Kinase (30-135) U/L Total Protein (6.3-8.3) g/dL Albumin (3.5-5.0) g/dL Globulin (2.2-3.9) gm/dL Albumin/Globulin Ratio (1.0-2.1) TSH 3rd Generation (0.46-4.68) mIU/L Arterial Blood Potassium (3.6-5.2) mmol/L Urine Osmolality 316 (300-1000) mosm/kg Ur Random Sodium 98 mmol/L Laboratory Results - last 24 hr 08/04/17 08/04/17 08/04/17 12:16 18:04 20:08 WBC RBC Hgb Hct MCV MCH MCHC RDW Plt Count MPV Neut % (Auto) Lymph % (Auto) Millard % (Auto) Eos % (Auto) Baso % (Auto) Neut # (Auto) Lymph # (Auto) Millard # (Auto) Eos # (Auto) Baso # (Auto) Puncture Site pCO2 pO2 HCO3 ABG pH ABG Total CO2 ABG O2 Saturation ABG Base Excess Reji Test ABG Potassium Glucose Lactate Liter Flow Sodium Potassium Chloride Carbon Dioxide Anion Gap BUN Creatinine Est GFR ( Amer) Est GFR (Non-Af Amer) POC Glucose (mg/dL) 98 75 Random Glucose Calcium Phosphorus Magnesium Total Bilirubin AST ALT Alkaline Phosphatase Total Creatine Kinase Total Protein Albumin Globulin Albumin/Globulin Ratio TSH 3rd Generation Arterial Blood Potassium Urine Osmolality 316 Ur Random Sodium 98 08/04/17 08/04/17 08/05/17 20:08 23:39 05:09 WBC RBC Hgb Hct MCV MCH MCHC RDW Plt Count MPV Neut % (Auto) Lymph % (Auto) Millard % (Auto) Eos % (Auto) Baso % (Auto) Neut # (Auto) Lymph # (Auto) Millard # (Auto) Eos # (Auto) Baso # (Auto) Puncture Site Rr pCO2 43 pO2 159 H HCO3 27.9 ABG pH 7.43 ABG Total CO2 29.8 H ABG O2 Saturation 100.0 H ABG Base Excess 3.7 H Reji Test Pos ABG Potassium 4.7 Glucose 89 Lactate 0.9 Liter Flow 3.0 Sodium 127 L 132.0 Potassium 5.1 Chloride 92 L 99.0 Carbon Dioxide 30 Anion Gap 10 BUN 10 Creatinine 0.9 Est GFR ( Amer) > 60 Est GFR (Non-Af Amer) > 60 POC Glucose (mg/dL) 87 Random Glucose 86 Calcium 7.8 L Phosphorus Magnesium Total Bilirubin AST ALT Alkaline Phosphatase Total Creatine Kinase Total Protein Albumin Globulin Albumin/Globulin Ratio TSH 3rd Generation Arterial Blood Potassium 4.7 Urine Osmolality Ur Random Sodium 08/05/17 08/05/17 08/05/17 05:33 06:13 06:17 WBC 5.9 RBC 2.87 L Hgb 8.4 L Hct 25.3 L MCV 87.9 MCH 29.4 MCHC 33.4 RDW 17.2 H Plt Count 214 MPV 8.8 Neut % (Auto) 74.2 Lymph % (Auto) 15.3 L Millard % (Auto) 8.8 Eos % (Auto) 0.5 Baso % (Auto) 1.2 Neut # (Auto) 4.4 Lymph # (Auto) 0.9 L Millard # (Auto) 0.5 Eos # (Auto) 0.0 Baso # (Auto) 0.1 Puncture Site pCO2 pO2 HCO3 ABG pH ABG Total CO2 ABG O2 Saturation ABG Base Excess Reji Test ABG Potassium Glucose Lactate Liter Flow Sodium 127 L Potassium 4.7 Chloride 95 L Carbon Dioxide 28 Anion Gap 10 BUN 11 Creatinine 0.9 Est GFR ( Amer) > 60 Est GFR (Non-Af Amer) > 60 POC Glucose (mg/dL) 88 Random Glucose 87 Calcium 7.7 L Phosphorus 2.7 Magnesium 1.9 Total Bilirubin 0.5 AST 47 H ALT 19 Alkaline Phosphatase 115 Total Creatine Kinase 68 Total Protein 7.3 Albumin 2.6 L Globulin 4.8 H Albumin/Globulin Ratio 0.5 L TSH 3rd Generation 3.85 Arterial Blood Potassium Urine Osmolality Ur Random Sodium EKG/Cardiology Studies: Cardiology / EKG Studies 08/05/17 10:15 EKG [ELECTROCARDIOGRAM] Stat Comment: Mode Of Transportation: Reason For Exam: evaluate heart rhythm Fingerstick Blood Sugar Results: 75 Review of Systems - Review of Systems Systems not reviewed;Unavailable: Altered Mental Status Assessment/Plan - Assessment and Plan (Free Text) Assessment: Pt is a 72F with new onset seizures. Neuro: New onset seizure (etiology unknown), hx of dementia Nuerologist Dr. Cornejo on board Vimpat 200mg/20ml IV BID Keppra 500mg IV BID CT head negative for acute changes CTA Head/Neck shows no flow limiting cervical carotid stenosis or vessel occlusion, also patent vertebral arteries follow up EEG and brain MRI follow up MRA head and neck ID: MSSA Septic Arthirtis; s/p arthroscopic irrigation and debridement of left knee on 07/19/17 Gentamycin 70mg IV QD rifampin 300mg PO TID Hold vanco Check vanco trough Tylenol for fever lactate NORMAL NEGATIVE for flu Blood culture NEGATIVE up to date renal: Hyponatremia Front Desk Receptionist Dr Eddy on board * Hyponatremia not improving with tolvaptan with urine osm still high; likely due to decreased tolvaptan levels while on rifampin; will continue with tolvaptan 30 mg daily Endo: SIADH (etiology unclear), DM Nephrology, Dr Moser on board * Hyponatremia not improving with tolvaptan with urine osm still high; likely due to decreased tolvaptan levels while on rifampin; will continue with tolvaptan 30 mg daily Hypoglycemic protocol Cardio: Ischemic cardiomyopathy with low EF, HTN, paroxymal A-Fib, s/p CABG Probnp [id number] Cozaar 25mg PO QD cardizem 10mg IVP Lopressor 50mg PO BID Lasix 20mg IV BID Crestor 40mg PO HS check CPK Lipid Profile NORMAL ECHO bubble study - no ASD seen Pulm: hx of COPD extubated 08/03/17 duoneb INH QID ABG ordered Electrolytes: hypokalemia resolved, hypomagnesemia, hyponatremia Replete MgSulfate to keep Mg above 2.[address] Eddy on board * Hyponatremia not improving with tolvaptan with urine osm still high; likely due to decreased tolvaptan levels while on rifampin; will continue with tolvaptan 30 mg daily GI: no active issues NG tube feeds Ppx: Heparin 5,000 units protonix 40mg PO QD <Vreona Laird - Last Filed: 08/05/17 15:32> CCU Objective - Vital Signs / Intake & Output Vital Signs (Last 4 hours): Vital Signs Temp 08/05/17 13:20 101 F H 08/05/17 12:20 100.8 F H Intake and Output (Last 8hrs): Intake & Output 08/05/17 08/05/17 08/05/17 06:59 14:59 22:59 Intake Total 410 Output Total 595 Balance -185 Weight 139 lb 5.314 oz Intake: Intake, IV Amount 350 R PICC line 350 Oral 0 Other 60 Output: Urine 595 Urethral (Castañeda) 595 - Medications Active Medications: Active Medications Generic Name Dose Route Start Last Admin Trade Name Freq PRN Reason Stop Dose Admin Acetaminophen 650 mg 08/05/17 10:23 08/05/17 12:20 Tylenol 650mg/20.3ml Solution Ud PO 650 mg Q6H PRN Administration Temperature >100.4 Albuterol/Ipratropium 3 ml 08/02/17 08:00 08/05/17 14:27 Duoneb 3 Mg/0.5 Mg (3 Ml) Ud INH 3 ml RQ6 KODAK Administration Clotrimazole 1 gm 08/04/17 10:00 08/05/17 10:02 Lotrimin 1% TOP 1 applic BID KODAK Administration Dextrose 0 ml 08/03/17 17:06 08/03/17 17:55 Dextrose 50% Inj IV 50 ml STAT PRN Administration Hypoglycemia Protocol Protocol Furosemide 20 mg 08/04/17 22:45 08/05/17 10:01 Lasix IVP 20 mg Q12 KODAK Administration Vancomycin HCl 750 mg/ Sodium 250 mls @ 166.6 mls/hr 08/03/17 23:00 08/04/17 22:29 Chloride IVPB 166.6 mls/hr Q12H KODAK Administration Lacosamide 100 mg/ Sodium 110 mls @ 110 mls/hr 08/03/17 22:00 08/05/17 09:43 Chloride IV 110 mls/hr Q12H KODAK Administration Gentamicin Sulfate 70 mg/ 101.75 mls @ 100 mls/hr 08/04/17 02:30 08/05/17 02: 08 Sodium Chloride IVPB 08/08/17 03:32 100 mls/hr Q24H KODAK Administration Levetiracetam 500 mg/ Sodium 105 mls @ 420 mls/hr 08/04/17 22:00 08/05/17 09: 43 Chloride IVPB 420 mls/hr Q12H KODAK Administration Lactobacillus Acidophilus 1 cap 08/02/17 10:00 08/05/17 10:01 Bacid Acidophilus PO 1 cap BID KODAK Administration Losartan Potassium 25 mg 08/02/17 10:00 08/05/17 10:03 Cozaar PO 25 mg DAILY KODAK Administration Metoprolol Tartrate 50 mg 08/02/17 10:00 08/05/17 12:21 Lopressor PO 50 mg BID KODAK Administration Metoprolol Tartrate 5 mg 08/03/17 09:15 08/05/17 10:01 Lopressor IVP 5 mg Q6H KODAK Administration Pantoprazole Sodium 40 mg 08/03/17 10:00 08/05/17 10:01 Protonix Inj IVP 40 mg Q12 KODAK Administration Rifampin 300 mg 08/02/17 10:00 08/05/17 13:18 Rifampin Cap PO 300 mg TID KODAK Administration Rosuvastatin Calcium 40 mg 08/03/17 08:34 08/04/17 21:03 Crestor PO 40 mg HS KODAK Administration Tolvaptan 30 mg 08/05/17 10:00 Samsca PO 08/06/17 22:40 DAILY KODAK - Patient Studies Lab Studies: Microbiology Studies 08/04/17 02:20 Blood Culture - Preliminary Blood-Thru Central Line NO GROWTH AFTER 24 HOURS 08/04/17 02:20 Blood Culture - Preliminary Blood-Thru Central Line NO GROWTH AFTER 24 HOURS Lab Studies 08/05/17 08/05/17 08/05/17 Range/Units 06:17 06:13 05:33 WBC 5.9 (4.8-10.8) K/uL RBC 2.87 L (3.80-5.20) Mil/uL Hgb 8.4 L (11.0-16.0) g/dL Hct 25.3 L (34.0-47.0) % MCV 87.9 (81.0-99.0) fL MCH 29.4 (27.0-31.0) pg MCHC 33.4 (33.0-37.0) g/dL RDW 17.2 H (11.5-14.5) % Plt Count 214 (130-400) K/uL MPV 8.8 (7.2-11.7) fL Neut % (Auto) 74.2 (50.0-75.0) % Lymph % (Auto) 15.3 L (20.0-40.0) % Millard % (Auto) 8.8 (0.0-10.0) % Eos % (Auto) 0.5 (0.0-4.0) % Baso % (Auto) 1.2 (0.0-2.0) % Neut # (Auto) 4.4 (1.8-7.0) K/uL Lymph # (Auto) 0.9 L (1.0-4.3) K/uL Millard # (Auto) 0.5 (0.0-0.8) K/uL Eos # (Auto) 0.0 (0.0-0.7) K/uL Baso # (Auto) 0.1 (0.0-0.2) K/uL Puncture Site pCO2 (35-45) mm/Hg pO2 (80-100) mm/Hg HCO3 (21-28) mmol/L ABG pH (7.35-7.45) ABG Total CO2 (22-28) mmol/L ABG O2 Saturation (95-98) % ABG Base Excess (-2.0-3.0) mmol/L Reji Test ABG Potassium (3.6-5.2) mmol/L Glucose (65-105) mg/dl Lactate (0.7-2.1) mmol/L Liter Flow Sodium 127 L (132-148) mmol/L Potassium 4.7 (3.6-5.2) mmol/L Chloride 95 L (98-107) mmol/L Carbon Dioxide 28 (22-30) mmol/L Anion Gap 10 (10-20) BUN 11 (7-17) mg/dL Creatinine 0.9 (0.7-1.2) mg/dL Est GFR ( Amer) > 60 Est GFR (Non-Af Amer) > 60 POC Glucose (mg/dL) 88 (65-110) mg/dL Random Glucose 87 (65-105) mg/dL Calcium 7.7 L (8.6-10.4) mg/dl Phosphorus 2.7 (2.5-4.5) mg/dL Magnesium 1.9 (1.6-2.3) mg/dL Total Bilirubin 0.5 (0.2-1.3) mg/dL AST 47 H (14-36) U/L ALT 19 (9-52) U/L Alkaline Phosphatase 115 (38-126) U/L Total Creatine Kinase 68 (30-135) U/L Total Protein 7.3 (6.3-8.3) g/dL Albumin 2.6 L (3.5-5.0) g/dL Globulin 4.8 H (2.2-3.9) gm/dL Albumin/Globulin Ratio 0.5 L (1.0-2.1) TSH 3rd Generation 3.85 (0.46-4.68) mIU/L Arterial Blood Potassium (3.6-5.2) mmol/L Urine Osmolality (300-1000) mosm/kg Ur Random Sodium mmol/L 08/05/17 08/04/17 08/04/17 Range/Units 05:09 23:39 20:08 WBC (4.8-10.8) K/uL RBC (3.80-5.20) Mil/uL Hgb (11.0-16.0) g/dL Hct (34.0-47.0) % MCV (81.0-99.0) fL MCH (27.0-31.0) pg MCHC (33.0-37.0) g/dL RDW (11.5-14.5) % Plt Count (130-400) K/uL MPV (7.2-11.7) fL Neut % (Auto) (50.0-75.0) % Lymph % (Auto) (20.0-40.0) % Millard % (Auto) (0.0-10.0) % Eos % (Auto) (0.0-4.0) % Baso % (Auto) (0.0-2.0) % Neut # (Auto) (1.8-7.0) K/uL Lymph # (Auto) (1.0-4.3) K/uL Millard # (Auto) (0.0-0.8) K/uL Eos # (Auto) (0.0-0.7) K/uL Baso # (Auto) (0.0-0.2) K/uL Puncture Site Rr pCO2 43 (35-45) mm/Hg pO2 159 H (80-100) mm/Hg HCO3 27.9 (21-28) mmol/L ABG pH 7.43 (7.35-7.45) ABG Total CO2 29.8 H (22-28) mmol/L ABG O2 Saturation 100.0 H (95-98) % ABG Base Excess 3.7 H (-2.0-3.0) mmol/L Reji Test Pos ABG Potassium 4.7 (3.6-5.2) mmol/L Glucose 89 (65-105) mg/dl Lactate 0.9 (0.7-2.1) mmol/L Liter Flow 3.0 Sodium 132.0 127 L (132-148) mmol/L Potassium 5.1 (3.6-5.2) mmol/L Chloride 99.0 92 L (98-107) mmol/L Carbon Dioxide 30 (22-30) mmol/L Anion Gap 10 (10-20) BUN 10 (7-17) mg/dL Creatinine 0.9 (0.7-1.2) mg/dL Est GFR ( Amer) > 60 Est GFR (Non-Af Amer) > 60 POC Glucose (mg/dL) 87 (65-110) mg/dL Random Glucose 86 (65-105) mg/dL Calcium 7.8 L (8.6-10.4) mg/dl Phosphorus (2.5-4.5) mg/dL Magnesium (1.6-2.3) mg/dL Total Bilirubin (0.2-1.3) mg/dL AST (14-36) U/L ALT (9-52) U/L Alkaline Phosphatase (38-126) U/L Total Creatine Kinase (30-135) U/L Total Protein (6.3-8.3) g/dL Albumin (3.5-5.0) g/dL Globulin (2.2-3.9) gm/dL Albumin/Globulin Ratio (1.0-2.1) TSH 3rd Generation (0.46-4.68) mIU/L Arterial Blood Potassium 4.7 (3.6-5.2) mmol/L Urine Osmolality (300-1000) mosm/kg Ur Random Sodium mmol/L 08/04/17 08/04/17 08/04/17 Range/Units 20:08 18:04 12:16 WBC (4.8-10.8) K/uL RBC (3.80-5.20) Mil/uL Hgb (11.0-16.0) g/dL Hct (34.0-47.0) % MCV (81.0-99.0) fL MCH (27.0-31.0) pg MCHC (33.0-37.0) g/dL RDW (11.5-14.5) % Plt Count (130-400) K/uL MPV (7.2-11.7) fL Neut % (Auto) (50.0-75.0) % Lymph % (Auto) (20.0-40.0) % Millard % (Auto) (0.0-10.0) % Eos % (Auto) (0.0-4.0) % Baso % (Auto) (0.0-2.0) % Neut # (Auto) (1.8-7.0) K/uL Lymph # (Auto) (1.0-4.3) K/uL Millard # (Auto) (0.0-0.8) K/uL Eos # (Auto) (0.0-0.7) K/uL Baso # (Auto) (0.0-0.2) K/uL Puncture Site pCO2 (35-45) mm/Hg pO2 (80-100) mm/Hg HCO3 (21-28) mmol/L ABG pH (7.35-7.45) ABG Total CO2 (22-28) mmol/L ABG O2 Saturation (95-98) % ABG Base Excess (-2.0-3.0) mmol/L Reji Test ABG Potassium (3.6-5.2) mmol/L Glucose (65-105) mg/dl Lactate (0.7-2.1) mmol/L Liter Flow Sodium (132-148) mmol/L Potassium (3.6-5.2) mmol/L Chloride (98-107) mmol/L Carbon Dioxide (22-30) mmol/L Anion Gap (10-20) BUN (7-17) mg/dL Creatinine (0.7-1.2) mg/dL Est GFR ( Amer) Est GFR (Non-Af Amer) POC Glucose (mg/dL) 75 98 (65-110) mg/dL Random Glucose (65-105) mg/dL Calcium (8.6-10.4) mg/dl Phosphorus (2.5-4.5) mg/dL Magnesium (1.6-2.3) mg/dL Total Bilirubin (0.2-1.3) mg/dL AST (14-36) U/L ALT (9-52) U/L Alkaline Phosphatase (38-126) U/L Total Creatine Kinase (30-135) U/L Total Protein (6.3-8.3) g/dL Albumin (3.5-5.0) g/dL Globulin (2.2-3.9) gm/dL Albumin/Globulin Ratio (1.0-2.1) TSH 3rd Generation (0.46-4.68) mIU/L Arterial Blood Potassium (3.6-5.2) mmol/L Urine Osmolality 316 (300-1000) mosm/kg Ur Random Sodium 98 mmol/L Laboratory Results - last 24 hr 08/04/17 08/04/17 08/04/17 12:16 18:04 20:08 WBC RBC Hgb Hct MCV MCH MCHC RDW Plt Count MPV Neut % (Auto) Lymph % (Auto) Millard % (Auto) Eos % (Auto) Baso % (Auto) Neut # (Auto) Lymph # (Auto) Millard # (Auto) Eos # (Auto) Baso # (Auto) Puncture Site pCO2 pO2 HCO3 ABG pH ABG Total CO2 ABG O2 Saturation ABG Base Excess Reji Test ABG Potassium Glucose Lactate Liter Flow Sodium Potassium Chloride Carbon Dioxide Anion Gap BUN Creatinine Est GFR ( Amer) Est GFR (Non-Af Amer) POC Glucose (mg/dL) 98 75 Random Glucose Calcium Phosphorus Magnesium Total Bilirubin AST ALT Alkaline Phosphatase Total Creatine Kinase Total Protein Albumin Globulin Albumin/Globulin Ratio TSH 3rd Generation Arterial Blood Potassium Urine Osmolality 316 Ur Random Sodium 98 08/04/17 08/04/17 08/05/17 20:08 23:39 05:09 WBC RBC Hgb Hct MCV MCH MCHC RDW Plt Count MPV Neut % (Auto) Lymph % (Auto) Millard % (Auto) Eos % (Auto) Baso % (Auto) Neut # (Auto) Lymph # (Auto) Millard # (Auto) Eos # (Auto) Baso # (Auto) Puncture Site Rr pCO2 43 pO2 159 H HCO3 27.9 ABG pH 7.43 ABG Total CO2 29.8 H ABG O2 Saturation 100.0 H ABG Base Excess 3.7 H Reji Test Pos ABG Potassium 4.7 Glucose 89 Lactate 0.9 Liter Flow 3.0 Sodium 127 L 132.0 Potassium 5.1 Chloride 92 L 99.0 Carbon Dioxide 30 Anion Gap 10 BUN 10 Creatinine 0.9 Est GFR ( Amer) > 60 Est GFR (Non-Af Amer) > 60 POC Glucose (mg/dL) 87 Random Glucose 86 Calcium 7.8 L Phosphorus Magnesium Total Bilirubin AST ALT Alkaline Phosphatase Total Creatine Kinase Total Protein Albumin Globulin Albumin/Globulin Ratio TSH 3rd Generation Arterial Blood Potassium 4.7 Urine Osmolality Ur Random Sodium 08/05/17 08/05/17 08/05/17 05:33 06:13 06:17 WBC 5.9 RBC 2.87 L Hgb 8.4 L Hct 25.3 L MCV 87.9 MCH 29.4 MCHC 33.4 RDW 17.2 H Plt Count 214 MPV 8.8 Neut % (Auto) 74.2 Lymph % (Auto) 15.3 L Millard % (Auto) 8.8 Eos % (Auto) 0.5 Baso % (Auto) 1.2 Neut # (Auto) 4.4 Lymph # (Auto) 0.9 L Millard # (Auto) 0.5 Eos # (Auto) 0.0 Baso # (Auto) 0.1 Puncture Site pCO2 pO2 HCO3 ABG pH ABG Total CO2 ABG O2 Saturation ABG Base Excess Reji Test ABG Potassium Glucose Lactate Liter Flow Sodium 127 L Potassium 4.7 Chloride 95 L Carbon Dioxide 28 Anion Gap 10 BUN 11 Creatinine 0.9 Est GFR ( Amer) > 60 Est GFR (Non-Af Amer) > 60 POC Glucose (mg/dL) 88 Random Glucose 87 Calcium 7.7 L Phosphorus 2.7 Magnesium 1.9 Total Bilirubin 0.5 AST 47 H ALT 19 Alkaline Phosphatase 115 Total Creatine Kinase 68 Total Protein 7.3 Albumin 2.6 L Globulin 4.8 H Albumin/Globulin Ratio 0.5 L TSH 3rd Generation 3.85 Arterial Blood Potassium Urine Osmolality Ur Random Sodium EKG/Cardiology Studies: Cardiology / EKG Studies 08/05/17 10:15 EKG [ELECTROCARDIOGRAM] Stat Comment: Mode Of Transportation: Reason For Exam: evaluate heart rhythm Attending/Attestation - Attestation I have personally seen and examined this patient.: Yes I have fully participated in the care of the patient.: Yes I have reviewed all pertinent clinical information: Yes Notes (Text): 08/05/17 15:31 patient is having partial seizures , stable. Episodes of tachycardia and tachypneaThis morning labs reviewed, nonspecific. patient's lactate is normal. Currently Patient is getting antiepileptic med Continue to monitor, EEG pending If any improving patient can be transferred
[2017-08-05] MEDS: Acetaminophen 650mg/20.3ml solution UD PO PRN (12:20)
[2017-08-05] MEDS ORDERED: Tolvaptan 15 MG TAB PO ONE (14:00)
--- NOTE | 2017-08-05 16:48 | CP.PCM.PN ---
Subjective - Date & Time of Evaluation Date of Evaluation: 08/05/17 Time of Evaluation: 15:00 - Subjective Subjective: Hospitalist Progress Note Patient was seen and examined at 3 PM 08/05/17 ICU BED #6 Patient is awake with NGT and NONrepsonsive to questioning therefore ROS is NOT possible. Spoke with Nurse Lissa and patient did have bowel movement today. EXAM: - Constitutional Appears: Non-toxic, No Acute Distress, However there is a twitching of mostly the right side of the face that occurs every 2 to 3 seconds - Head Exam Head Exam: NORMAL INSPECTION - Eye Exam Eye Exam: Pupils are reactive to light. The Right Pupil is greater in size than the Left Pupil - Neck Exam Neck Exam: NO cervical/supraclavicular/submandibular lymphadenopathy, NO thyromegaly - Respiratory Exam Respiratory Exam: Clear to Ausculation Bilateral, NORMAL BREATHING PATTERN. absent: Rales, Rhonchi, Wheezes - Cardiovascular Exam Cardiovascular Exam: Normal +S1, +S2, NO M/R/G - GI/Abdominal Exam GI & Abdominal Exam: Soft, ND, BSX4 are decreased, NO guarding, NO rebound tenderness - Extremities Exam Extremities Exam: NO edema present in the arms and legs, Capillary refill is 2 seconds, Pulses are strong and equal, Right Arm PICC Line Left knee edema without erythema and two stitches (lateral and medial) are present - Neurological Exam Neurological Exam: Awake with twitching present mostly on the right side of the face that occurs every 2 to 3 seconds - Skin Skin Exam: Bilateral groin area with a rash that is erythematous with scalloping borders, Lumbar/Sacral blanchable erythema Assessment and Plan (1) New onset seizure Assessment & Plan: * 08/01: per review of ED triage note: Via ALS from [facility], prior notification of resident experiencing ''jerky movements few secs for a total of 3 episodes''; seizure-like activity witnessed by ALS, treated with ATIVAN 2MG IV GIVEN VIA PICC LINE TO RT ARM PER REPORT GIVEN; on NRB 100%, SYN=[id number] * 08/01: Per review of ED note: In ambulance, given Ativan 2mg on route, NIHSS: 29 (noted for dysarthria and profound neglect does not recognize own hand or oreitns to one side. ED attempted to reverse with Flumazenil given patient appeared comatose. Intubated in the ED for airway protection with etomidate * Code stroke 08/01/17 GCS: 4 * Factors for seizure activity: * Precipitating factors: hyponatremia, hypokalemia, hypomagnesium * Antibiotic side effect: gentamicin (seizure, confusion, lethargy per uptodate ), rifampin (fatigue, drowsiness, confusion), Cefazolin (seizure) * pain medication: tramadol * Imaging: * CT head (08/01/17): nonspecific white matter changes. Acute infarction may be CT occult within first 24 hours. If a focal deficit persists, consider for further evaulation. Atherosclerotic disease of intracranial arteries. probable chronic lacunar infarcts within basal ganglia. * CT Head and neck (08/01/17): no flow limiting cervical cartoid artery stenosis or vessel occlusion. Patent vertebral arteries * CT Head (08/02/17): no evidence of acute infarct. Chronic microvascular white matter ischemic change. otherwise unremarkable. * Neurology (Dr. Cornejo) on board-->help appreciated * F/u EEG * D/c Cerebryx and Keppra secondary to worsening hyponatremia--Start Vimpat 100mg IVP Q12H 08/02 * Nephrology (Dr. Eddy) on board-->help appreciated * Seen patient last admission * Note: SIADH * PICC line (had been placed 07/24/17). * Pending MRI * Monitor electrolytes * Passed bedside swallow eval Status: Acute (2) Hypokalemia Assessment & Plan: * Resolved Status: Acute (3) Hyponatremia/SIADH Assessment & Plan: * Nephrology (Dr. Eddy) on the case-->help appreciated * SIADH * Could also be secondary to the Keppra? * Patient has been receiving Tolvaptan 30 mg PO 1x/day on 08/03/17/, 08/04/17, and 08/05/17. However patient is also on Rifampin (as part of treatment for Left Knee Septic Arthritis) and this may interfere with the Tolvaptan Imaging: * CT head (08/01/17): nonspecific white matter changes. Acute infarction may be CT occult within first 24 hours. If a focal deficit persists, consider for further evaulation. Atherosclerotic disease of intracranial arteries. probable chronic lacunar infarcts within basal ganglia * CT Head and neck (08/01/17): no flow limiting cervical cartoid artery stenosis or vessel occlusion. Patent vertebral arteries * CT Head (08/02/17): no evidence of acute infarct. Chronic microvascular white matter ischemic change. otherwise unremarkable. Status: Acute (4) Septic arthritis Assessment & Plan: * Infectious Disease (Dr. Jannie Avina) on the case-->help appreciated * From last admission: * On 07/19/17: Left knee arthroscopic. #1 I&D. #2 extensive synovectomy. #3 synovial biopsy and culture acquisition. #4 partial medial and lateral menisectomies. #5 chondroplasty trochlea * Post-Operative Diagnoses: Left knee #1 septic arthritis. #2 inflammatory synovitis. #3 crystal arthropathy/ pseudogout. #4 deg/complex medial meniscal tear. #5 deg/ complex lateral meniscal tear. #6 chondromalacia trochlea/MFC/ LFC, early DJD patella * 07/19/17: MSSA in Left knee and left Synovial sample * 07/16/17: Blood culture: no growth after 5 days * 07/23/17: Blood culture: no growth after 5 days * Patient was discharged on Ancef, Rifampin, and gentamicin. MICS available (07/26) and came back on 08/01/17. * Start Gentamicin Sulfate 70mg IVPB Q24H (active 08/04/17) X5 bags * Monitor renal function * Start Rifampin 300mg PO TID (08/02/17) * Will impact Samsca * Start Vancomycin 750mg IVPB Q12H (active since 08/03/17) * Monitor renal function * She will need a total of 6 weeks of Antibiotics Status: Chronic (5) H/O mitral valve replacement (bioprosthetic valve) Assessment & Plan: * Cardiology (Dr. Rowan) on the case-->help appreciated; Dr. Rush covering this weekend * Will need to follow-up in regards anticoagulation such as aspirin in regards to bioprosthetic valvue * Per cardiology, do not start chemical anticoagulation given recurrent history of GI bleeding * Echocardiogram (08/02/17): No ASD seen. * Echocardiogram (07/22/17): limited study, vegetation on MV cannot be excluded. Rec. ASTRID to define MV/Calcified mitral ring? * Echocardiogram (07/01/17): systolic function is severely impaired. Anterior and septa; aldridge reveal dyskinesis with wall thinning. (indicative of prior transmural ND), inferior wall is severely hypokinestic, lateral wall is mod to severely hypokinetic, Left atrium is moderately dilated, right atrium is moderately dilated, mild concentric left ventricular hypertrophy, mild mitral valve stenosis, * Cardiac cath: severe multivessel coronary artery disease, severe left ventricular systolic dysfunction (2017) * Hx CABG * Prosthetic valve * Will she need ASTRID? Status: Chronic (6) Diabetes mellitus Assessment & Plan: * [id number]: 5.1 * Controlled * Accuchecks Q6H Status: Chronic (7) Hypertension Assessment & Plan: * Lopressor 50mg PO BID * Crestor 2.5mg POqHS * Cozaar 25mg PO daily Status: Chronic (8) Hx Coronary artery disease/CABG Status: Chronic * Lopressor 50mg PO BID * Crestor 2.5mg POqHS * Cozaar 25mg PO daily (11) Severe systolic congestive heart failure Assessment & Plan: * Lopressor, Cozaar * On last admission recommends for outpatient AICD by Dr Rowan Status: Chronic (12) Atelectasis Assessment & Plan: * CT Chest (08/02/17): small right pleural effusion and right lower lobe subsegmental atelectasis. Opacity seen at right lung base on earlier chest radiograph of the same date was likely artifactual due to overlying medical equipment Status: Acute (13) Paroxysmal Atrial Fibrillation Assessment & Plan: * Lopressor 5mg IVPQ6H * Lopressor 50mg PO BID * Per cardiology, hold chemical anticoagulation, patient has history of recurrent GI bleed, awaiting brain MRI, may or may not need ASTRID Status: Acute (14) Fungal Rash * Inner groin folds and back side * Lotrimin 1% cream (15) Prophylactic measure Assessment & Plan: * Heparin 5000 units [id number] * Protonix 40mg IVP Q12H * Bacid 1 cap PO BID * PT/OT eval * Wound care MRI Department was concerned about the patient's Hx of Cardiac Stents. Nurse Lissa spoke with patient's and he will be bringing in the Cardiac Stent information card. We need MRI Brain, MRA Head/Neck to determine if patient is having strokes of embolic origin (source either from Mitral Valve or due to inability to place patient on anticoagulation for the Hx AF due to the Hx of GI bleeding). If these studies do show this, then we will likely need to arrange for ASTRID. ICU Resident to reach out to Orthopedics Dr. Russell Villalpando to determine when Left Knee sutures can be removed. Harsh Stokes D.O. Objective - Vital Signs/Intake and Output Vital Signs (last 24 hours): Temp Pulse Resp BP Pulse Ox 101 F H 103 H 22 136/76 100 08/05/17 13:20 08/05/17 07:07 08/05/17 07:07 08/05/17 15:39 08/05/17 07:07 Intake and Output: 08/05/17 08/05/17 06:59 18:59 Intake Total 670 Output Total 755 Balance -85 - Medications Medications: Current Medications Acetaminophen (Tylenol 650mg/20.3ml Solution Ud) 650 mg PO Q6H PRN PRN Reason: Temperature >100.4 Last Admin: 08/05/17 12:20 Dose: 650 mg Albuterol/Ipratropium (Duoneb 3 Mg/0.5 Mg (3 Ml) Ud) 3 ml INH RQ6 [facility] Last Admin: 08/05/17 14:27 Dose: 3 ml Clotrimazole (Lotrimin 1%) 1 gm TOP BID [facility] Last Admin: 08/05/17 10:02 Dose: 1 applic Dextrose (Dextrose 50% Inj) 0 ml IV STAT PRN; Protocol PRN Reason: Hypoglycemia Protocol Last Admin: 08/03/17 17:55 Dose: 50 ml Furosemide (Lasix) 20 mg IVP Q12 [facility] Last Admin: 08/05/17 10:01 Dose: 20 mg Vancomycin HCl 750 mg/ Sodium (Chloride) 250 mls @ 166.6 mls/hr IVPB Q12H [facility] Last Admin: 08/04/17 22:29 Dose: 166.6 mls/hr Lacosamide 100 mg/ Sodium (Chloride) 110 mls @ 110 mls/hr IV Q12H [facility] Last Admin: 08/05/17 09:43 Dose: 110 mls/hr Gentamicin Sulfate 70 mg/ (Sodium Chloride) 101.75 mls @ 100 mls/hr IVPB Q24H [facility] Stop: 08/08/17 03:32 Last Admin: 08/05/17 02:08 Dose: 100 mls/hr Levetiracetam 500 mg/ Sodium (Chloride) 105 mls @ 420 mls/hr IVPB Q12H [facility] Last Admin: 08/05/17 09:43 Dose: 420 mls/hr Lactobacillus Acidophilus (Bacid Acidophilus) 1 cap PO BID [facility] Last Admin: 08/05/17 10:01 Dose: 1 cap Losartan Potassium (Cozaar) 25 mg PO DAILY [facility] Last Admin: 08/05/17 10:03 Dose: 25 mg Metoprolol Tartrate (Lopressor) 50 mg PO BID [facility] Last Admin: 08/05/17 12:21 Dose: 50 mg Metoprolol Tartrate (Lopressor) 5 mg IVP Q6H [facility] Last Admin: 08/05/17 10:01 Dose: 5 mg Pantoprazole Sodium (Protonix Inj) 40 mg IVP Q12 [facility] Last Admin: 08/05/17 10:01 Dose: 40 mg Rifampin (Rifampin Cap) 300 mg PO TID [facility] Last Admin: 08/05/17 13:18 Dose: 300 mg Rosuvastatin Calcium (Crestor) 40 mg PO HS [facility] Last Admin: 08/04/17 21:03 Dose: 40 mg Tolvaptan (Samsca) 30 mg PO DAILY [facility] Stop: 08/06/17 22:40 - Labs Labs: 08/05/17 06:17 08/05/17 06:13 PT 14.6 SECONDS (9.7-12.2) H 08/01/17 19:55 INR 1.3 08/01/17 19:55 APTT 47 SECONDS (21-34) H 08/01/17 19:55
--- NOTE | 2017-08-05 17:33 | MRI ---
PROCEDURE: MRI of the brain dated 08/05/2017. HISTORY: Right-sided flaccidity COMPARISON: Comparison made with prior CT scan of the brain dated 09/02/2017 at 00:18 hours TECHNIQUE: Multiplanar, multisequence MR images of the brain were obtained without intravenous contrast enhancement. Study is limited by motion artifact FINDINGS: HEMORRHAGE: Current study reveals no acute parenchymal, subarachnoid or extra-axial hemorrhage. No evidence of hemosiderin deposition identified on gradient echo weighted sequence. DWI: No evidence of an acute or early subacute infarction seen on diffusion imaging. . BRAIN PARENCHYMA: Mild moderate diffuse/ confluent chronic white matter ischemic changes seen extending peripherally into the deep and subcortical white matter both cerebral hemispheres. Multiple more discrete chronic appearing for type infarcts scattered about the subcortical white matter both cerebral hemispheres. Changes were also seen in the anterior superior basal nuclei/coronal radiata junction as well the. Small chronic appearing pontine and left cerebellar infarct changes are also present There may also be a few scattered chronic bilateral basal nuclei lacunar type infarcts difficult to distinguish from dilated perivascular spaces. . Moderate to fairly significant generalized volume loss VENTRICLES: No obstructive hydrocephalus. CRANIUM: No acute calvarial lesion so far as can be seen ORBITS: Orbits and contents unremarkable PARANASAL SINUSES/MASTOIDS: Clear VASCULAR SYSTEM: Visualized major vascular flow voids at skull base patent. OTHER FINDINGS: None. IMPRESSION: Limited motion degraded study. No acute intracranial hemorrhage. Moderate chronic white matter the ischemic changes with scattered small basal nuclei, brainstem and left cerebellar lacunar type infarcts. Moderate to fairly significant generalized volume loss.
--- NOTE | 2017-08-05 18:20 | CP.PCM.PN ---
Subjective - Date & Time of Evaluation Date of Evaluation: 08/05/17 Time of Evaluation: 18:20 - Subjective Subjective: FEBRILE 101 FACIAL TICKS NOTED. ON NC. NGT IN PLACE. EVENTS NOTED IN ICU. CONSULTANTS NOTES REVIEWED. PT FOR MRI/MRA BRAIN PER NEURO TODAY CONTINUE IV ABX. LABS REVIEWED. VANCO TROUGH 17.6 08/04/17- OK. RENAL FUNCTION OK BLOOD CULTURES 08/04/18 -VE X 24HRS. Objective - Vital Signs/Intake and Output Vital Signs (last 24 hours): Temp Pulse Resp BP Pulse Ox 101 F H 103 H 22 136/76 100 08/05/17 13:20 08/05/17 07:07 08/05/17 07:07 08/05/17 15:39 08/05/17 07:07 Intake and Output: 08/05/17 08/05/17 06:59 18:59 Intake Total 670 Output Total 755 Balance -85 - Medications Medications: Current Medications Acetaminophen (Tylenol 650mg/20.3ml Solution Ud) 650 mg PO Q6H PRN PRN Reason: Temperature >100.4 Last Admin: 08/05/17 12:20 Dose: 650 mg Albuterol/Ipratropium (Duoneb 3 Mg/0.5 Mg (3 Ml) Ud) 3 ml INH RQ6 [facility] Last Admin: 08/05/17 14:27 Dose: 3 ml Clotrimazole (Lotrimin 1%) 1 gm TOP BID [facility] Last Admin: 08/05/17 18:08 Dose: 1 applic Dextrose (Dextrose 50% Inj) 0 ml IV STAT PRN; Protocol PRN Reason: Hypoglycemia Protocol Last Admin: 08/03/17 17:55 Dose: 50 ml Furosemide (Lasix) 20 mg IVP Q12 [facility] Last Admin: 08/05/17 10:01 Dose: 20 mg Vancomycin HCl 750 mg/ Sodium (Chloride) 250 mls @ 166.6 mls/hr IVPB Q12H [facility] Last Admin: 08/04/17 22:29 Dose: 166.6 mls/hr Lacosamide 100 mg/ Sodium (Chloride) 110 mls @ 110 mls/hr IV Q12H [facility] Last Admin: 08/05/17 09:43 Dose: 110 mls/hr Gentamicin Sulfate 70 mg/ (Sodium Chloride) 101.75 mls @ 100 mls/hr IVPB Q24H [facility] Stop: 08/08/17 03:32 Last Admin: 08/05/17 02:08 Dose: 100 mls/hr Levetiracetam 500 mg/ Sodium (Chloride) 105 mls @ 420 mls/hr IVPB Q12H [facility] Last Admin: 08/05/17 09:43 Dose: 420 mls/hr Lactobacillus Acidophilus (Bacid Acidophilus) 1 cap PO BID [facility] Last Admin: 08/05/17 18:03 Dose: 1 cap Losartan Potassium (Cozaar) 25 mg PO DAILY [facility] Last Admin: 08/05/17 10:03 Dose: 25 mg Metoprolol Tartrate (Lopressor) 50 mg PO BID [facility] Last Admin: 08/05/17 18:08 Dose: 50 mg Metoprolol Tartrate (Lopressor) 5 mg IVP Q6H [facility] Last Admin: 08/05/17 18:04 Dose: 5 mg Pantoprazole Sodium (Protonix Inj) 40 mg IVP Q12 [facility] Last Admin: 08/05/17 10:01 Dose: 40 mg Rifampin (Rifampin Cap) 300 mg PO TID [facility] Last Admin: 08/05/17 18:05 Dose: 300 mg Rosuvastatin Calcium (Crestor) 40 mg PO HS [facility] Last Admin: 08/04/17 21:03 Dose: 40 mg Tolvaptan (Samsca) 30 mg PO DAILY [facility] Stop: 08/06/17 22:40 - Labs Labs: 08/05/17 06:17 08/05/17 06:13 PT 14.6 SECONDS (9.7-12.2) H 08/01/17 19:55 INR 1.3 08/01/17 19:55 APTT 47 SECONDS (21-34) H 08/01/17 19:55 - Constitutional Appears: No Acute Distress, Chronically Ill - Head Exam Head Exam: NORMAL INSPECTION - Eye Exam Eye Exam: EOMI, PERRL Pupil Exam: Unequal - ENT Exam ENT Exam: Mucous Membranes Moist - Neck Exam Neck Exam: Normal Inspection - Respiratory Exam Respiratory Exam: Clear to Ausculation Bilateral, NORMAL BREATHING PATTERN - Cardiovascular Exam Cardiovascular Exam: Irregular Rhythm, +S1, +S2 - GI/Abdominal Exam GI & Abdominal Exam: Soft, Hypoactive Bowel Sounds - Extremities Exam Extremities Exam: Joint Swelling (LT.KNEE EFFUSION +VE SWITCHES LATERALLY/ MEDIALLY.), Pedal Edema. absent: Calf Tenderness - Neurological Exam Neurological Exam: Awake (RT. SIDED WEAKNESS) - Psychiatric Exam Psychiatric exam: Flat Affect - Skin Skin Exam: Normal Color, Warm Assessment and Plan (1) New onset seizure Status: Acute (2) Hypokalemia Status: Acute (3) Hyponatremia Status: Acute (4) PAF (paroxysmal atrial fibrillation) Status: Acute (5) Septic arthritis Status: Chronic (6) Osteomyelitis of left knee region Status: Acute (7) H/O mitral valve replacement Status: Chronic (8) Diabetes mellitus Status: Chronic - Assessment and Plan (Free Text) Assessment: Assessment: - NEW ONSET OF SEIZURES ? R/O EMBOLI TO BRAIN VS ELECTROLYTE IMBALANCE R/O CVA - MSSA SEPTIC ARTHRITIS LEFT KNEE/WITH PSEUDOGOUT /? OSTEOMYLITIS -S/P ARTHROSCOPIC IRRIGATION/DEBRIDEMENT, LEFT KNEE ARTHROSCOPIC PATELLAR MEDIAL /LATERAL MENISCECTOMY AND EXTENSIVE SYNOVECTOMY/CHONDROPLASTY TROCHLEA 07/19/17 - PROSTHETIC MITRAL- VALVE ENDOCARDITIS.(+VE VEGETATIONS could NOT BE RULED OUT ON 2-d ECHO ). -HX OF CABG /MVR. -CONGESTIVE HEART FAILURE. -PAROXSYSMAL ATRIAL FIBRILLATION. -ELECTROLYTE IMBALANCE -SIADH -DM-2 -RHEUMATOID ARTHRITIS/OSTEOPOROSIS BY HISTORY. PLAN . . ON IV VANCOMYCIN 1GM LD , F/U BY 750MG IV Q 12HRLY 08/03/17 F/U VANCO TROUGH LEVEL ON 4TH DOSE AND MAINTAIN BETWEEN 10- 20MCG/ML CONTINUE IV RIFAMPIN 300MG PO TID. CONTINUE IV GENTAMICIN 70 MILLIGRAMS iv PIGGYBACK ONCE A DAY DAILY X 5 MORE DAYS TO COMPLETE 2WKS RX (07/24/17 TILL 08/07/17 ) F/U RENAL FUNCTION CLOSELY NEURO W/U IN PROGRESS PT FOR MRI / MRA BRAIN R/O EMBOLIC PHENOMENON EEG -P CORRECT ELECTROLYTE IMBALANCE. CASE DISCUSSED WITH STAFF.
--- NOTE | 2017-08-05 22:04 | CP.PCM.PN ---
Subjective - Date & Time of Evaluation Date of Evaluation: 08/05/17 Time of Evaluation: 19:45 - Subjective Subjective: Underwent MRI today showing multiple chronic infarcts; still not following commands and with L gaze preference; being started on NG feeds; Objective - Vital Signs/Intake and Output Vital Signs (last 24 hours): Temp Pulse Resp BP Pulse Ox 98.5 F 82 26 H 133/71 100 08/05/17 20:00 08/05/17 21:00 08/05/17 21:00 08/05/17 21:50 08/05/17 21:00 Intake and Output: 08/05/17 08/06/17 18:59 06:59 Intake Total 200 Output Total 720 130 Balance -520 -130 - Medications Medications: Current Medications Acetaminophen (Tylenol 650mg/20.3ml Solution Ud) 650 mg PO Q6H PRN PRN Reason: Temperature >100.4 Last Admin: 08/05/17 12:20 Dose: 650 mg Albuterol/Ipratropium (Duoneb 3 Mg/0.5 Mg (3 Ml) Ud) 3 ml INH RQ6 [facility] Last Admin: 08/05/17 19:52 Dose: 3 ml Clotrimazole (Lotrimin 1%) 1 gm TOP BID [facility] Last Admin: 08/05/17 18:08 Dose: 1 applic Dextrose (Dextrose 50% Inj) 0 ml IV STAT PRN; Protocol PRN Reason: Hypoglycemia Protocol Last Admin: 08/03/17 17:55 Dose: 50 ml Furosemide (Lasix) 20 mg IVP Q12 [facility] Last Admin: 08/05/17 21:50 Dose: 20 mg Heparin Sodium (Porcine) (Heparin) 5,000 units SC Q12 [facility] Last Admin: 08/05/17 21:13 Dose: 5,000 units Vancomycin HCl 750 mg/ Sodium (Chloride) 250 mls @ 166.6 mls/hr IVPB Q12H [facility] Last Admin: 08/04/17 22:29 Dose: 166.6 mls/hr Lacosamide 100 mg/ Sodium (Chloride) 110 mls @ 110 mls/hr IV Q12H [facility] Last Admin: 08/05/17 21:50 Dose: 110 mls/hr Gentamicin Sulfate 70 mg/ (Sodium Chloride) 101.75 mls @ 100 mls/hr IVPB Q24H [facility] Stop: 08/08/17 03:32 Last Admin: 08/05/17 02:08 Dose: 100 mls/hr Levetiracetam 500 mg/ Sodium (Chloride) 105 mls @ 420 mls/hr IVPB Q12H [facility] Last Admin: 08/05/17 21:12 Dose: 420 mls/hr Lactobacillus Acidophilus (Bacid Acidophilus) 1 cap PO BID [facility] Last Admin: 08/05/17 18:03 Dose: 1 cap Losartan Potassium (Cozaar) 25 mg PO DAILY [facility] Last Admin: 08/05/17 10:03 Dose: 25 mg Metoprolol Tartrate (Lopressor) 50 mg PO BID [facility] Last Admin: 08/05/17 18:08 Dose: 50 mg Metoprolol Tartrate (Lopressor) 5 mg IVP Q6H [facility] Last Admin: 08/05/17 21:11 Dose: 5 mg Pantoprazole Sodium (Protonix Inj) 40 mg IVP Q12 [facility] Last Admin: 08/05/17 21:13 Dose: 40 mg Rifampin (Rifampin Cap) 300 mg PO TID [facility] Last Admin: 08/05/17 18:05 Dose: 300 mg Rosuvastatin Calcium (Crestor) 40 mg PO HS [facility] Last Admin: 08/05/17 21:15 Dose: 40 mg Tolvaptan (Samsca) 30 mg PO DAILY [facility] Stop: 08/06/17 22:40 - Labs Labs: 08/05/17 06:17 08/05/17 06:13 PT 14.6 SECONDS (9.7-12.2) H 08/01/17 19:55 INR 1.3 08/01/17 19:55 APTT 47 SECONDS (21-34) H 08/01/17 19:55 - Constitutional Appears: Non-toxic, No Acute Distress - Eye Exam Eye Exam: absent: Scleral icterus - ENT Exam ENT Exam: Mucous Membranes Moist - Respiratory Exam Respiratory Exam: absent: Rhonchi, Respiratory Distress - Cardiovascular Exam Cardiovascular Exam: RRR, +S1, +S2 - GI/Abdominal Exam GI & Abdominal Exam: Soft. absent: Distended, Tenderness - Extremities Exam Additional comments: mild leg edema; - Neurological Exam Neurological Exam: Awake. absent: Alert - Psychiatric Exam Psychiatric exam: absent: Agitated - Skin Skin Exam: Warm. absent: Cyanosis Assessment and Plan (1) Hyponatremia Assessment & Plan: Only mildly improved on higher dose of tolvaptan; will continue with 30 mg daily dose; standing dose of lasix should help also; Status: Acute (2) CHF (congestive heart failure) Status: Chronic (3) Septic arthritis Assessment & Plan: Vanco trough at adequate level, should continue per ID; check gent trough; Status: Chronic
[2017-08-06] MEDS: Albuterol-Ipratrop 3 mg / 0.5 (3 ml) UD INH SCH ×4 (01:34→20:49)
[2017-08-06] MEDS: Gentamicin 70 MG in Sodium Chloride 0.9% 100 ML IVPB SCH (01:53)
[2017-08-06] MEDS: Metoprolol 1 mg/ml Inj IVP SCH ×4 (03:46→20:56)
[2017-08-06 06:45] LABS: ALB/GLOB RATIO 0.5 (1.0-2.1); ALBUMIN 2.7 g/dL (3.5-5.0); ALT/SGPT 19 U/L (9-52); AST/SGOT 40 U/L (14-36); BLOOD UREA NITROGEN 14 mg/dL (7-17); CALCIUM 7.9 mg/dl (8.6-10.4); GFR AFRICAN-AMERICAN > 60; GFR NON-AFRICAN AMERICAN > 60; MAGNESIUM 2.1 mg/dL (1.6-2.3)
[2017-08-06 07:12] LABS: HEMOGLOBIN 8.4 g/dL (11.0-16.0); MEAN CELL VOLUME 87.8 fL (81.0-99.0); MEAN CORPUSCULAR HEMOGLOBIN 29.3 pg (27.0-31.0); MEAN CORPUSCULAR HGB CONC 33.4 g/dL (33.0-37.0); MEAN PLATELET VOLUME 8.8 fL (7.2-11.7); RBC 2.85 Mil/uL (3.80-5.20); RED CELL DISTRIBUTION WIDTH 17.2 % (11.5-14.5); WHITE BLOOD COUNT 4.7 K/uL (4.8-10.8)
--- NOTE | 2017-08-06 08:49 | MRI ---
PROCEDURE: Magnetic Resonance Angiography Brain HISTORY: right side flaccid COMPARISON: None available. TECHNIQUE: 3D time of flight MR angiography of the intracranial arteries was performed. Rotating maximum intensity projection images were generated. This examination is of suboptimal diagnostic quality due to patient motion. FINDINGS: INTERNAL CAROTID ARTERIES: Normal flow related signal. The skull base, petrous, cavernous and supraclinoid segments are bilaterally widely patient. ANTERIOR CEREBRAL ARTERIES: Normal flow related signal. A1 and A2 segments are widely patent. Smaller distal branches unremarkable, as visualized. MIDDLE CEREBRAL ARTERIES: Normal flow related signal. M1 and M2 segments are widely patent. Perisylvian branches grossly symmetric. POSTERIOR CIRCULATION: Basilar Artery: Normal flow related signal. Distal Vertebral Arteries: Normal flow related signal. The right vertebral artery is dominant, an anatomic variant. Posterior Cerebral Arteries: The right distal posterior cerebral artery is not well visualized. Normal flow related signal in the left posterior cerebral artery. Posterior Inferior Cerebellar Arteries: Normal flow related signal. ANEURYSM/ VASCULAR MALFORMATIONS: None. OTHER FINDINGS: None. IMPRESSION: Suboptimal diagnostic quality due to patient motion. Patent anterior circulation. The right distal posterior cerebral artery is not well visualized which may be artifactual however a occlusion cannot be excluded. Patent left posterior cerebral artery, vertebral and basilar arteries. A preliminary report was provided by [employer].
--- NOTE | 2017-08-06 08:58 | MRI ---
PROCEDURE: MR Angiography of the neck without contrast HISTORY: right side flaccid COMPARISON: None available. TECHNIQUE: 3D [id number] angiography of the neck was performed. Rotating maximum intensity projection images of the cervical carotid and vertebral arteries were generated. The origins of the common carotid arteries were not visualized, which is a limitation inherent to the non-contrast time of flight technique. Examination is severely limited by patient motion. FINDINGS: RIGHT CAROTID ARTERIES: Common Carotid Artery: Normal. Carotid Bifurcation: Normal. Internal Carotid Artery:Mild narrowing at the origin. External Carotid Artery (proximal branches): Normal. LEFT CAROTID ARTERIES: Common Carotid Artery: Normal. Carotid Bifurcation: Normal. Internal Carotid Artery:Mild narrowing at origin. External Carotid Artery (proximal branches): Normal. VERTEBRAL ARTERIES: Right Vertebral Artery: Normal. Left Vertebral Artery: Normal. OTHER FINDINGS: None. IMPRESSION: This examination is limited by patient motion. No evidence of hemodynamically significant stenosis in the internal carotid arteries. Patent vertebral arteries. A preliminary report was provided by [email or web address].
[2017-08-06] MEDS: levETIRAcetam 500 MG in Sodium Chloride 0.9% 100 ML IVPB SCH ×2 (09:04→21:09)
[2017-08-06] MEDS: Clotrimazole 1% Cream(30 gm) TOP SCH ×2 (09:04→17:59)
[2017-08-06] MEDS: Lactobacillus Acidophilus 500 MU Cap PO SCH ×2 (09:12→18:00)
[2017-08-06 09:24] LABS: OSMOLALITY,URINE 373 mosm/kg (300-1000)
[2017-08-06] MEDS: Lacosamide 200mg/20ml 100 MG in Sodium Chloride 0.9% 100 ML IV SCH ×2 (09:30→22:03)
[2017-08-06 10:50] LABS: LYMPH # 0.5 K/uL (1.0-4.3); MONO # 0.3 K/uL (0.0-0.8); NEUT # 3.9 K/uL (1.8-7.0)
--- NOTE | 2017-08-06 11:50 | CP.CCUPN ---
<Scottie Nogueira R - Last Filed: 08/06/17 11:47> CCU Subjective - Physician Review Subjective (Free Text): Patient seen and examined. ROS unobtainable due to intubation. Saturating well on nasal cannula. NG tube in place. Tachycardic, rhythm on monitor is sinus tach. Facial tick still present. CCU Objective - Vital Signs / Intake & Output Vital Signs (Last 4 hours): Vital Signs BP 08/06/17 09:12 132/74 Intake and Output (Last 8hrs): Intake & Output 08/05/17 08/06/17 08/06/17 22:59 06:59 14:59 Intake Total 260 250 Output Total 370 1045 Balance -110 -795 Weight 141 lb 8.588 oz Intake: Intake, IV Amount 200 100 R PICC line 200 100 Tube Feeding 120 Other 60 30 Output: Urine 370 1045 Urethral (Castañeda) 370 1045 Other: # Bowel Movements 1 - Physical Exam Head: Positive for: Atraumatic, Normocephalic Mouth: Positive for: Moist Mucous Membranes Neck: Positive for: Normal Range of Motion Respiratory/Chest: Positive for: Clear to Auscultation, Good Air Exchange Cardiovascular: Positive for: Normal S1, S2 Abdomen: Positive for: Normal Bowel Sounds. Negative for: Tenderness, Distention Upper Extremity: Positive for: Normal Inspection Lower Extremity: Positive for: Normal Inspection, Other (left knee sutures intact w/ knee swollen) Psychiatric: Negative for: Alert, Oriented x 3 - Medications Active Medications: Active Medications Generic Name Dose Route Start Last Admin Trade Name Freq PRN Reason Stop Dose Admin Acetaminophen 650 mg 08/05/17 10:23 08/05/17 12:20 Tylenol 650mg/20.3ml Solution Ud PO 650 mg Q6H PRN Administration Temperature >100.4 Albuterol/Ipratropium 3 ml 08/02/17 08:00 08/06/17 07:42 Duoneb 3 Mg/0.5 Mg (3 Ml) Ud INH 3 ml RQ6 KODAK Administration Clotrimazole 1 gm 08/04/17 10:00 08/06/17 09:04 Lotrimin 1% TOP 1 applic BID KODAK Administration Dextrose 0 ml 08/03/17 17:06 08/03/17 17:55 Dextrose 50% Inj IV 50 ml STAT PRN Administration Hypoglycemia Protocol Protocol Furosemide 20 mg 08/05/17 22:00 08/06/17 09:12 Lasix IVP 20 mg Q12 KODAK Administration Heparin Sodium (Porcine) 5,000 units 08/05/17 22:00 08/06/17 09:11 Heparin SC 5,000 units Q12 KODAK Administration Vancomycin HCl 750 mg/ Sodium 250 mls @ 166.6 mls/hr 08/03/17 23:00 08/04/17 22:29 Chloride IVPB 166.6 mls/hr Q12H OKDAK Administration Lacosamide 100 mg/ Sodium 110 mls @ 110 mls/hr 08/03/17 22:00 08/06/17 09:30 Chloride IV 110 mls/hr Q12H KODAK Administration Gentamicin Sulfate 70 mg/ 101.75 mls @ 100 mls/hr 08/04/17 02:30 08/06/17 01: 53 Sodium Chloride IVPB 08/08/17 03:32 100 mls/hr Q24H KODAK Administration Levetiracetam 500 mg/ Sodium 105 mls @ 420 mls/hr 08/04/17 22:00 08/06/17 09: 04 Chloride IVPB 420 mls/hr Q12H KODAK Administration Lactobacillus Acidophilus 1 cap 08/02/17 10:00 08/06/17 09:12 Bacid Acidophilus PO 1 cap BID KODAK Administration Losartan Potassium 25 mg 08/02/17 10:00 08/06/17 09:12 Cozaar PO 25 mg DAILY KODAK Administration Metoprolol Tartrate 50 mg 08/02/17 10:00 08/05/17 18:08 Lopressor PO 50 mg BID KODAK Administration Metoprolol Tartrate 5 mg 08/03/17 09:15 08/06/17 09:11 Lopressor IVP 5 mg Q6H KODAK Administration Pantoprazole Sodium 40 mg 08/03/17 10:00 08/06/17 09:11 Protonix Inj IVP 40 mg Q12 KODAK Administration Rifampin 300 mg 08/02/17 10:00 08/06/17 09:12 Rifampin Cap PO 300 mg TID KODAK Administration Rosuvastatin Calcium 40 mg 08/03/17 08:34 08/05/17 21:15 Crestor PO 40 mg HS KODAK Administration Spironolactone 12.5 mg 08/06/17 10:30 Aldactone PO BID KODAK Tolvaptan 30 mg 02/19/18 10:00 Samsca PO 08/06/17 22:40 DAILY KODAK - Patient Studies Lab Studies: Microbiology Studies 08/04/17 02:20 Blood Culture - Preliminary Blood-Thru Central Line NO GROWTH AFTER 48 HOURS 08/04/17 02:20 Blood Culture - Preliminary Blood-Thru Central Line NO GROWTH AFTER 48 HOURS Lab Studies 08/06/17 08/06/17 08/06/17 Range/Units 08:44 06:17 06:16 WBC 4.7 L (4.8-10.8) K/uL RBC 2.85 L (3.80-5.20) Mil/uL Hgb 8.4 L (11.0-16.0) g/dL Hct 25.0 L (34.0-47.0) % MCV 87.8 (81.0-99.0) fL MCH 29.3 (27.0-31.0) pg MCHC 33.4 (33.0-37.0) g/dL RDW 17.2 H (11.5-14.5) % Plt Count 202 (130-400) K/uL MPV 8.8 (7.2-11.7) fL Neut % (Auto) 82.0 H (50.0-75.0) % Lymph % (Auto) 10.0 L (20.0-40.0) % [place] % (Auto) 6.0 (0.0-10.0) % Eos % (Auto) 2.0 (0.0-4.0) % Baso % (Auto) 0.0 (0.0-2.0) % Neut # (Auto) 3.9 (1.8-7.0) K/uL Lymph # (Auto) 0.5 L (1.0-4.3) K/uL [place] # (Auto) 0.3 (0.0-0.8) K/uL Eos # (Auto) 0.0 (0.0-0.7) K/uL Baso # (Auto) 0.0 (0.0-0.2) K/uL Sodium 130 L (132-148) mmol/L Potassium 3.4 L (3.6-5.2) mmol/L Chloride 91 L (98-107) mmol/L Carbon Dioxide 31 H (22-30) mmol/L Anion Gap 12 (10-20) BUN 14 (7-17) mg/dL Creatinine 0.9 (0.7-1.2) mg/dL Est GFR ( Amer) > 60 Est GFR (Non-Af Amer) > 60 POC Glucose (mg/dL) (65-110) mg/dL Random Glucose 94 (65-105) mg/dL Calcium 7.9 L (8.6-10.4) mg/dl Phosphorus 3.1 (2.5-4.5) mg/dL Magnesium 2.1 (1.6-2.3) mg/dL Total Bilirubin 0.7 (0.2-1.3) mg/dL AST 40 H (14-36) U/L ALT 19 (9-52) U/L Alkaline Phosphatase 115 (38-126) U/L Total Protein 7.6 (6.3-8.3) g/dL Albumin 2.7 L (3.5-5.0) g/dL Globulin 4.9 H (2.2-3.9) gm/dL Albumin/Globulin Ratio 0.5 L (1.0-2.1) Procalcitonin (0.19-0.49) NG/ML Urine Osmolality 373 (300-1000) mosm/kg Ur Random Sodium 68 mmol/L Vancomycin Trough (5.0-10.0) ug/mL 08/06/17 08/05/17 08/05/17 Range/Units 06:03 23:48 18:05 WBC (4.8-10.8) K/uL RBC (3.80-5.20) Mil/uL Hgb (11.0-16.0) g/dL Hct (34.0-47.0) % MCV (81.0-99.0) fL MCH (27.0-31.0) pg MCHC (33.0-37.0) g/dL RDW (11.5-14.5) % Plt Count (130-400) K/uL MPV (7.2-11.7) fL Neut % (Auto) (50.0-75.0) % Lymph % (Auto) (20.0-40.0) % [place] % (Auto) (0.0-10.0) % Eos % (Auto) (0.0-4.0) % Baso % (Auto) (0.0-2.0) % Neut # (Auto) (1.8-7.0) K/uL Lymph # (Auto) (1.0-4.3) K/uL [place] # (Auto) (0.0-0.8) K/uL Eos # (Auto) (0.0-0.7) K/uL Baso # (Auto) (0.0-0.2) K/uL Sodium (132-148) mmol/L Potassium (3.6-5.2) mmol/L Chloride (98-107) mmol/L Carbon Dioxide (22-30) mmol/L Anion Gap (10-20) BUN (7-17) mg/dL Creatinine (0.7-1.2) mg/dL Est GFR ( Amer) Est GFR (Non-Af Amer) POC Glucose (mg/dL) 92 80 109 (65-110) mg/dL Random Glucose (65-105) mg/dL Calcium (8.6-10.4) mg/dl Phosphorus (2.5-4.5) mg/dL Magnesium (1.6-2.3) mg/dL Total Bilirubin (0.2-1.3) mg/dL AST (14-36) U/L ALT (9-52) U/L Alkaline Phosphatase (38-126) U/L Total Protein (6.3-8.3) g/dL Albumin (3.5-5.0) g/dL Globulin (2.2-3.9) gm/dL Albumin/Globulin Ratio (1.0-2.1) Procalcitonin (0.19-0.49) NG/ML Urine Osmolality (300-1000) mosm/kg Ur Random Sodium mmol/L Vancomycin Trough (5.0-10.0) ug/mL 08/05/17 08/05/17 08/05/17 Range/Units 16:40 16:40 11:51 WBC (4.8-10.8) K/uL RBC (3.80-5.20) Mil/uL Hgb (11.0-16.0) g/dL Hct (34.0-47.0) % MCV (81.0-99.0) fL MCH (27.0-31.0) pg MCHC (33.0-37.0) g/dL RDW (11.5-14.5) % Plt Count (130-400) K/uL MPV (7.2-11.7) fL Neut % (Auto) (50.0-75.0) % Lymph % (Auto) (20.0-40.0) % [place] % (Auto) (0.0-10.0) % Eos % (Auto) (0.0-4.0) % Baso % (Auto) (0.0-2.0) % Neut # (Auto) (1.8-7.0) K/uL Lymph # (Auto) (1.0-4.3) K/uL [place] # (Auto) (0.0-0.8) K/uL Eos # (Auto) (0.0-0.7) K/uL Baso # (Auto) (0.0-0.2) K/uL Sodium (132-148) mmol/L Potassium (3.6-5.2) mmol/L Chloride (98-107) mmol/L Carbon Dioxide (22-30) mmol/L Anion Gap (10-20) BUN (7-17) mg/dL Creatinine (0.7-1.2) mg/dL Est GFR ( Amer) Est GFR (Non-Af Amer) POC Glucose (mg/dL) 80 (65-110) mg/dL Random Glucose (65-105) mg/dL Calcium (8.6-10.4) mg/dl Phosphorus (2.5-4.5) mg/dL Magnesium (1.6-2.3) mg/dL Total Bilirubin (0.2-1.3) mg/dL AST (14-36) U/L ALT (9-52) U/L Alkaline Phosphatase (38-126) U/L Total Protein (6.3-8.3) g/dL Albumin (3.5-5.0) g/dL Globulin (2.2-3.9) gm/dL Albumin/Globulin Ratio (1.0-2.1) Procalcitonin 0.12 L (0.19-0.49) NG/ML Urine Osmolality (300-1000) mosm/kg Ur Random Sodium mmol/L Vancomycin Trough 17.6 H (5.0-10.0) ug/mL Laboratory Results - last 24 hr 08/05/17 08/05/17 08/05/17 11:51 16:40 16:40 WBC RBC Hgb Hct MCV MCH MCHC RDW Plt Count MPV Neut % (Auto) Lymph % (Auto) [place] % (Auto) Eos % (Auto) Baso % (Auto) Neut # (Auto) Lymph # (Auto) [place] # (Auto) Eos # (Auto) Baso # (Auto) Sodium Potassium Chloride Carbon Dioxide Anion Gap BUN Creatinine Est GFR ( Amer) Est GFR (Non-Af Amer) POC Glucose (mg/dL) 80 Random Glucose Calcium Phosphorus Magnesium Total Bilirubin AST ALT Alkaline Phosphatase Total Protein Albumin Globulin Albumin/Globulin Ratio Procalcitonin 0.12 L Urine Osmolality Ur Random Sodium Vancomycin Trough 17.6 H 08/05/17 08/05/17 08/06/17 18:05 23:48 06:03 WBC RBC Hgb Hct MCV MCH MCHC RDW Plt Count MPV Neut % (Auto) Lymph % (Auto) [place] % (Auto) Eos % (Auto) Baso % (Auto) Neut # (Auto) Lymph # (Auto) [place] # (Auto) Eos # (Auto) Baso # (Auto) Sodium Potassium Chloride Carbon Dioxide Anion Gap BUN Creatinine Est GFR ( Amer) Est GFR (Non-Af Amer) POC Glucose (mg/dL) 109 80 92 Random Glucose Calcium Phosphorus Magnesium Total Bilirubin AST ALT Alkaline Phosphatase Total Protein Albumin Globulin Albumin/Globulin Ratio Procalcitonin Urine Osmolality Ur Random Sodium Vancomycin Trough 08/06/17 08/06/17 08/06/17 06:16 06:17 08:44 WBC 4.7 L RBC 2.85 L Hgb 8.4 L Hct 25.0 L MCV 87.8 MCH 29.3 MCHC 33.4 RDW 17.2 H Plt Count 202 MPV 8.8 Neut % (Auto) 82.0 H Lymph % (Auto) 10.0 L [place] % (Auto) 6.0 Eos % (Auto) 2.0 Baso % (Auto) 0.0 Neut # (Auto) 3.9 Lymph # (Auto) 0.5 L [place] # (Auto) 0.3 Eos # (Auto) 0.0 Baso # (Auto) 0.0 Sodium 130 L Potassium 3.4 L Chloride 91 L Carbon Dioxide 31 H Anion Gap 12 BUN 14 Creatinine 0.9 Est GFR ( Amer) > 60 Est GFR (Non-Af Amer) > 60 POC Glucose (mg/dL) Random Glucose 94 Calcium 7.9 L Phosphorus 3.1 Magnesium 2.1 Total Bilirubin 0.7 AST 40 H ALT 19 Alkaline Phosphatase 115 Total Protein 7.6 Albumin 2.7 L Globulin 4.9 H Albumin/Globulin Ratio 0.5 L Procalcitonin Urine Osmolality 373 Ur Random Sodium 68 Vancomycin Trough Fingerstick Blood Sugar Results: 99 Review of Systems - Review of Systems Systems not reviewed;Unavailable: Altered Mental Status Assessment/Plan - Assessment and Plan (Free Text) Assessment: Pt is a 72F with new onset seizures. Neuro: New onset seizure (etiology unknown), hx of dementia Neurologist Dr. Conrejo on board Vimpat 200mg/20ml IV BID Keppra 500mg IV BID Imaging: CT head negative for acute changes CTA Head/Neck shows no flow limiting cervical carotid stenosis or vessel occlusion, also patent vertebral arteries brain MRI shows no acute intracranial hemorrhage. Moderate chronic white matter the ischemic changes with scattered small basal nuclei, brainstem and left cerebellar lacunar type infarcts. Moderate to fairly significant generalized volume loss. MRA head showed patent anterior circulation. Right distal posterior cerebral artery is not well visualized which may be artifactual however a occlusion cannot be excluded. Patent left posterior cerebral artery, vertebral and basilar arteries. MRA neck showed no evidence of hemodynamically significant stenosis in the internal carotid arteries. Patent vertebral arteries. 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 Dr Eddy on board Hyponatremia not improving with tolvaptan with urine osm still high; likely due to decreased tolvaptan levels while on rifampin; will continue with tolvaptan 30 mg daily Aldactone 12.5 mg PO BID Endo: SIADH (etiology unclear), DM Nephrology, Dr Moser on board Hyponatremia not improving with tolvaptan with urine osm still high; likely due to decreased tolvaptan levels while on rifampin; will continue with tolvaptan 30 mg daily Hypoglycemic protocol Cardio: Ischemic cardiomyopathy with low EF, HTN, paroxymal A-Fib, s/p CABG Probnp [id number] Cozaar 25mg PO QD cardizem 10mg IVP Lopressor 50mg PO BID Lasix 20mg IV BID Crestor 40mg PO HS CPK NORMAL Lipid Profile NORMAL ECHO bubble study - no ASD seen Pulm: hx of COPD extubated 08/03/17 duoneb INH QID ABG ordered Electrolytes: hypokalemia resolved, hypomagnesemia, hyponatremia Replete MgSulfate to keep Mg above 2.[address] [employer] [address] [employer] [address] Eddy on board Hyponatremia not improving with tolvaptan with urine osm still high; likely due to decreased tolvaptan levels while on rifampin; will continue with tolvaptan 30 mg daily GI: no active issues NG tube feeds Ppx: Heparin 5,000 units protonix 40mg PO QD <Immanuel Alvarez - Last Filed: 08/06/17 16:56> CCU Objective - Vital Signs / Intake & Output Vital Signs (Last 4 hours): Vital Signs Pulse Resp BP Pulse Ox 08/06/17 16:07 91 H 21 124/61 96 08/06/17 15:07 87 21 118/60 91 L 08/06/17 14:07 80 15 112/54 L 100 08/06/17 13:07 85 17 115/64 97 Intake and Output (Last 8hrs): Intake & Output 08/06/17 08/06/17 08/06/17 06:59 14:59 22:59 Intake Total 250 959 20 Output Total 1045 Balance -795 959 20 Weight 141 lb 8.588 oz Intake: Intake, IV Amount 100 819 R PICC line 100 819 Tube Feeding 120 140 20 Other 30 Output: Urine 1045 Urethral (Castañeda) 1045 - Medications Active Medications: Active Medications Generic Name Dose Route Start Last Admin Trade Name Freq PRN Reason Stop Dose Admin Acetaminophen 650 mg 08/05/17 10:23 08/05/17 12:20 Tylenol 650mg/20.3ml Solution Ud PO 650 mg Q6H PRN Administration Temperature >100.4 Albuterol/Ipratropium 3 ml 08/02/17 08:00 08/06/17 13:44 Duoneb 3 Mg/0.5 Mg (3 Ml) Ud INH 3 ml RQ6 KODAK Administration Clotrimazole 1 gm 08/04/17 10:00 08/06/17 09:04 Lotrimin 1% TOP 1 applic BID KODAK Administration Dextrose 0 ml 08/03/17 17:06 08/03/17 17:55 Dextrose 50% Inj IV 50 ml STAT PRN Administration Hypoglycemia Protocol Protocol Furosemide 20 mg 08/05/17 22:00 08/06/17 09:12 Lasix IVP 20 mg Q12 KODAK Administration Heparin Sodium (Porcine) 5,000 units 08/05/17 22:00 08/06/17 09:11 Heparin SC 5,000 units Q12 KODAK Administration Lacosamide 100 mg/ Sodium 110 mls @ 110 mls/hr 08/03/17 22:00 08/06/17 09:30 Chloride IV 110 mls/hr Q12H KODAK Administration Gentamicin Sulfate 70 mg/ 101.75 mls @ 100 mls/hr 08/04/17 02:30 08/06/17 01: 53 Sodium Chloride IVPB 08/08/17 03:32 100 mls/hr Q24H KODAK Administration Levetiracetam 500 mg/ Sodium 105 mls @ 420 mls/hr 08/04/17 22:00 08/06/17 09: 04 Chloride IVPB 420 mls/hr Q12H KODAK Administration Vancomycin HCl 150 mls @ 100 mls/hr 08/06/17 13:00 08/06/17 13:05 Vancocin 750mg/Ns 150 Ml IVPB 100 mls/hr Q12H KODAK Administration Lactobacillus Acidophilus 1 cap 08/02/17 10:00 08/06/17 09:12 Bacid Acidophilus PO 1 cap BID KODAK Administration Losartan Potassium 25 mg 08/02/17 10:00 08/06/17 09:12 Cozaar PO 25 mg DAILY KODAK Administration Metoprolol Tartrate 50 mg 08/02/17 10:00 08/06/17 12:24 Lopressor PO Not Given BID KODAK Metoprolol Tartrate 5 mg 08/03/17 09:15 08/06/17 15:35 Lopressor IVP Not Given Q6H KODAK Pantoprazole Sodium 40 mg 08/03/17 10:00 08/06/17 09:11 Protonix Inj IVP 40 mg Q12 KODAK Administration Rifampin 300 mg 08/02/17 10:00 08/06/17 13:15 Rifampin Cap PO 300 mg TID KODAK Administration Rosuvastatin Calcium 40 mg 08/03/17 08:34 08/05/17 21:15 Crestor PO 40 mg HS KODAK Administration Spironolactone 12.5 mg 08/06/17 10:30 08/06/17 12:31 Aldactone PO 12.5 mg BID KODAK Administration Tolvaptan 30 mg 08/06/17 14:30 Samsca PO DAILY KODAK - Patient Studies Lab Studies: Microbiology Studies 08/04/17 02:20 Blood Culture - Preliminary Blood-Thru Central Line NO GROWTH AFTER 48 HOURS 08/04/17 02:20 Blood Culture - Preliminary Blood-Thru Central Line NO GROWTH AFTER 48 HOURS Lab Studies 08/06/17 08/06/17 08/06/17 Range/Units 11:44 08:44 06:17 WBC 4.7 L (4.8-10.8) K/uL RBC 2.85 L (3.80-5.20) Mil/uL Hgb 8.4 L (11.0-16.0) g/dL Hct 25.0 L (34.0-47.0) % MCV 87.8 (81.0-99.0) fL MCH 29.3 (27.0-31.0) pg MCHC 33.4 (33.0-37.0) g/dL RDW 17.2 H (11.5-14.5) % Plt Count 202 (130-400) K/uL MPV 8.8 (7.2-11.7) fL Neut % (Auto) 82.0 H (50.0-75.0) % Lymph % (Auto) 10.0 L (20.0-40.0) % [place] % (Auto) 6.0 (0.0-10.0) % Eos % (Auto) 2.0 (0.0-4.0) % Baso % (Auto) 0.0 (0.0-2.0) % Neut # (Auto) 3.9 (1.8-7.0) K/uL Lymph # (Auto) 0.5 L (1.0-4.3) K/uL [place] # (Auto) 0.3 (0.0-0.8) K/uL Eos # (Auto) 0.0 (0.0-0.7) K/uL Baso # (Auto) 0.0 (0.0-0.2) K/uL Sodium (132-148) mmol/L Potassium (3.6-5.2) mmol/L Chloride (98-107) mmol/L Carbon Dioxide (22-30) mmol/L Anion Gap (10-20) BUN (7-17) mg/dL Creatinine (0.7-1.2) mg/dL Est GFR ( Amer) Est GFR (Non-Af Amer) POC Glucose (mg/dL) 98 (65-110) mg/dL Random Glucose (65-105) mg/dL Calcium (8.6-10.4) mg/dl Phosphorus (2.5-4.5) mg/dL Magnesium (1.6-2.3) mg/dL Total Bilirubin (0.2-1.3) mg/dL AST (14-36) U/L ALT (9-52) U/L Alkaline Phosphatase (38-126) U/L Total Protein (6.3-8.3) g/dL Albumin (3.5-5.0) g/dL Globulin (2.2-3.9) gm/dL Albumin/Globulin Ratio (1.0-2.1) Procalcitonin (0.19-0.49) NG/ML Urine Osmolality 373 (300-1000) mosm/kg Ur Random Sodium 68 mmol/L Vancomycin Trough (5.0-10.0) ug/mL 08/06/17 08/06/17 08/05/17 Range/Units 06:16 06:03 23:48 WBC (4.8-10.8) K/uL RBC (3.80-5.20) Mil/uL Hgb (11.0-16.0) g/dL Hct (34.0-47.0) % MCV (81.0-99.0) fL MCH (27.0-31.0) pg MCHC (33.0-37.0) g/dL RDW (11.5-14.5) % Plt Count (130-400) K/uL MPV (7.2-11.7) fL Neut % (Auto) (50.0-75.0) % Lymph % (Auto) (20.0-40.0) % [place] % (Auto) (0.0-10.0) % Eos % (Auto) (0.0-4.0) % Baso % (Auto) (0.0-2.0) % Neut # (Auto) (1.8-7.0) K/uL Lymph # (Auto) (1.0-4.3) K/uL [place] # (Auto) (0.0-0.8) K/uL Eos # (Auto) (0.0-0.7) K/uL Baso # (Auto) (0.0-0.2) K/uL Sodium 130 L (132-148) mmol/L Potassium 3.4 L (3.6-5.2) mmol/L Chloride 91 L (98-107) mmol/L Carbon Dioxide 31 H (22-30) mmol/L Anion Gap 12 (10-20) BUN 14 (7-17) mg/dL Creatinine 0.9 (0.7-1.2) mg/dL Est GFR ( Amer) > 60 Est GFR (Non-Af Amer) > 60 POC Glucose (mg/dL) 92 80 (65-110) mg/dL Random Glucose 94 (65-105) mg/dL Calcium 7.9 L (8.6-10.4) mg/dl Phosphorus 3.1 (2.5-4.5) mg/dL Magnesium 2.1 (1.6-2.3) mg/dL Total Bilirubin 0.7 (0.2-1.3) mg/dL AST 40 H (14-36) U/L ALT 19 (9-52) U/L Alkaline Phosphatase 115 (38-126) U/L Total Protein 7.6 (6.3-8.3) g/dL Albumin 2.7 L (3.5-5.0) g/dL Globulin 4.9 H (2.2-3.9) gm/dL Albumin/Globulin Ratio 0.5 L (1.0-2.1) Procalcitonin (0.19-0.49) NG/ML Urine Osmolality (300-1000) mosm/kg Ur Random Sodium mmol/L Vancomycin Trough (5.0-10.0) ug/mL 08/05/17 08/05/1718 Range/Units 18:05 16:40 16:40 WBC (4.8-10.8) K/uL RBC (3.80-5.20) Mil/uL Hgb (11.0-16.0) g/dL Hct (34.0-47.0) % MCV (81.0-99.0) fL MCH (27.0-31.0) pg MCHC (33.0-37.0) g/dL RDW (11.5-14.5) % Plt Count (130-400) K/uL MPV (7.2-11.7) fL Neut % (Auto) (50.0-75.0) % Lymph % (Auto) (20.0-40.0) % [place] % (Auto) (0.0-10.0) % Eos % (Auto) (0.0-4.0) % Baso % (Auto) (0.0-2.0) % Neut # (Auto) (1.8-7.0) K/uL Lymph # (Auto) (1.0-4.3) K/uL [place] # (Auto) (0.0-0.8) K/uL Eos # (Auto) (0.0-0.7) K/uL Baso # (Auto) (0.0-0.2) K/uL Sodium (132-148) mmol/L Potassium (3.6-5.2) mmol/L Chloride (98-107) mmol/L Carbon Dioxide (22-30) mmol/L Anion Gap (10-20) BUN (7-17) mg/dL Creatinine (0.7-1.2) mg/dL Est GFR ( Amer) Est GFR (Non-Af Amer) POC Glucose (mg/dL) 109 (65-110) mg/dL Random Glucose (65-105) mg/dL Calcium (8.6-10.4) mg/dl Phosphorus (2.5-4.5) mg/dL Magnesium (1.6-2.3) mg/dL Total Bilirubin (0.2-1.3) mg/dL AST (14-36) U/L ALT (9-52) U/L Alkaline Phosphatase (38-126) U/L Total Protein (6.3-8.3) g/dL Albumin (3.5-5.0) g/dL Globulin (2.2-3.9) gm/dL Albumin/Globulin Ratio (1.0-2.1) Procalcitonin 0.12 L (0.19-0.49) NG/ML Urine Osmolality (300-1000) mosm/kg Ur Random Sodium mmol/L Vancomycin Trough 17.6 H (5.0-10.0) ug/mL 08/05/17 Range/Units 11:51 WBC (4.8-10.8) K/uL RBC (3.80-5.20) Mil/uL Hgb (11.0-16.0) g/dL Hct (34.0-47.0) % MCV (81.0-99.0) fL MCH (27.0-31.0) pg MCHC (33.0-37.0) g/dL RDW (11.5-14.5) % Plt Count (130-400) K/uL MPV (7.2-11.7) fL Neut % (Auto) (50.0-75.0) % Lymph % (Auto) (20.0-40.0) % [place] % (Auto) (0.0-10.0) % Eos % (Auto) (0.0-4.0) % Baso % (Auto) (0.0-2.0) % Neut # (Auto) (1.8-7.0) K/uL Lymph # (Auto) (1.0-4.3) K/uL [place] # (Auto) (0.0-0.8) K/uL Eos # (Auto) (0.0-0.7) K/uL Baso # (Auto) (0.0-0.2) K/uL Sodium (132-148) mmol/L Potassium (3.6-5.2) mmol/L Chloride (98-107) mmol/L Carbon Dioxide (22-30) mmol/L Anion Gap (10-20) BUN (7-17) mg/dL Creatinine (0.7-1.2) mg/dL Est GFR ( Amer) Est GFR (Non-Af Amer) POC Glucose (mg/dL) 80 (65-110) mg/dL Random Glucose (65-105) mg/dL Calcium (8.6-10.4) mg/dl Phosphorus (2.5-4.5) mg/dL Magnesium (1.6-2.3) mg/dL Total Bilirubin (0.2-1.3) mg/dL AST (14-36) U/L ALT (9-52) U/L Alkaline Phosphatase (38-126) U/L Total Protein (6.3-8.3) g/dL Albumin (3.5-5.0) g/dL Globulin (2.2-3.9) gm/dL Albumin/Globulin Ratio (1.0-2.1) Procalcitonin (0.19-0.49) NG/ML Urine Osmolality (300-1000) mosm/kg Ur Random Sodium mmol/L Vancomycin Trough (5.0-10.0) ug/mL Laboratory Results - last 24 hr 08/05/17 08/05/17 08/05/17 11:51 16:40 16:40 WBC RBC Hgb Hct MCV MCH MCHC RDW Plt Count MPV Neut % (Auto) Lymph % (Auto) [place] % (Auto) Eos % (Auto) Baso % (Auto) Neut # (Auto) Lymph # (Auto) [place] # (Auto) Eos # (Auto) Baso # (Auto) Sodium Potassium Chloride Carbon Dioxide Anion Gap BUN Creatinine Est GFR ( Amer) Est GFR (Non-Af Amer) POC Glucose (mg/dL) 80 Random Glucose Calcium Phosphorus Magnesium Total Bilirubin AST ALT Alkaline Phosphatase Total Protein Albumin Globulin Albumin/Globulin Ratio Procalcitonin 0.12 L Urine Osmolality Ur Random Sodium Vancomycin Trough 17.6 H 08/05/17 08/05/17 08/06/17 18:05 23:48 06:03 WBC RBC Hgb Hct MCV MCH MCHC RDW Plt Count MPV Neut % (Auto) Lymph % (Auto) [place] % (Auto) Eos % (Auto) Baso % (Auto) Neut # (Auto) Lymph # (Auto) [place] # (Auto) Eos # (Auto) Baso # (Auto) Sodium Potassium Chloride Carbon Dioxide Anion Gap BUN Creatinine Est GFR ( Amer) Est GFR (Non-Af Amer) POC Glucose (mg/dL) 109 80 92 Random Glucose Calcium Phosphorus Magnesium Total Bilirubin AST ALT Alkaline Phosphatase Total Protein Albumin Globulin Albumin/Globulin Ratio Procalcitonin Urine Osmolality Ur Random Sodium Vancomycin Trough 08/06/17 08/06/17 08/06/17 06:16 06:17 08:44 WBC 4.7 L RBC 2.85 L Hgb 8.4 L Hct 25.0 L MCV 87.8 MCH 29.3 MCHC 33.4 RDW 17.2 H Plt Count 202 MPV 8.8 Neut % (Auto) 82.0 H Lymph % (Auto) 10.0 L [place] % (Auto) 6.0 Eos % (Auto) 2.0 Baso % (Auto) 0.0 Neut # (Auto) 3.9 Lymph # (Auto) 0.5 L [place] # (Auto) 0.3 Eos # (Auto) 0.0 Baso # (Auto) 0.0 Sodium 130 L Potassium 3.4 L Chloride 91 L Carbon Dioxide 31 H Anion Gap 12 BUN 14 Creatinine 0.9 Est GFR ( Amer) > 60 Est GFR (Non-Af Amer) > 60 POC Glucose (mg/dL) Random Glucose 94 Calcium 7.9 L Phosphorus 3.1 Magnesium 2.1 Total Bilirubin 0.7 AST 40 H ALT 19 Alkaline Phosphatase 115 Total Protein 7.6 Albumin 2.7 L Globulin 4.9 H Albumin/Globulin Ratio 0.5 L Procalcitonin Urine Osmolality 373 Ur Random Sodium 68 Vancomycin Trough 08/06/17 11:44 WBC RBC Hgb Hct MCV MCH MCHC RDW Plt Count MPV Neut % (Auto) Lymph % (Auto) [place] % (Auto) Eos % (Auto) Baso % (Auto) Neut # (Auto) Lymph # (Auto) [place] # (Auto) Eos # (Auto) Baso # (Auto) Sodium Potassium Chloride Carbon Dioxide Anion Gap BUN Creatinine Est GFR ( Amer) Est GFR (Non-Af Amer) POC Glucose (mg/dL) 98 Random Glucose Calcium Phosphorus Magnesium Total Bilirubin AST ALT Alkaline Phosphatase Total Protein Albumin Globulin Albumin/Globulin Ratio Procalcitonin Urine Osmolality Ur Random Sodium Vancomycin Trough Attending/Attestation - Attestation I have personally seen and examined this patient.: Yes I have fully participated in the care of the patient.: Yes I have reviewed all pertinent clinical information: Yes Notes (Text): 08/06/17 16:54 patient seen and examined in the intensive care unit. discussed with house staff in the morning. Patient extubated in no respiratory distress Twitching of the face noted Being treated for seizures CAT scan of the head, MRI and MRA report noted and explained to patient's , who wanted to talk to her neurologist for more information. seen by cardiology Possible ASTRID eJECTION FRACTION 15-20%
[2017-08-06] MEDS: Vancomycin 750mg/NS 150 ml 150 ML IVPB SCH (13:05)
--- NOTE | 2017-08-06 14:28 | CP.PCM.PN ---
Subjective - Date & Time of Evaluation Date of Evaluation: 07/06/17 Time of Evaluation: 02:30 - Subjective Subjective: Patient continues to have twitching of right face, extending to right arm. however, she appears to be awake while this is occuring. EEG is still pending. On exam: Right sided hemiparesis, right gaze preference, and non verbal Rest of neuro exam is unchanged. MRi BRain: no stroke or hemorrhage. Objective - Vital Signs/Intake and Output Vital Signs (last 24 hours): Temp Pulse Resp BP Pulse Ox 98.8 F 81 22 132/74 100 08/06/17 04:00 08/06/17 07:07 08/06/17 07:07 08/06/17 09:12 08/06/17 07:07 Intake and Output: 08/06/17 08/06/17 06:59 18:59 Intake Total 510 Output Total 1175 Balance -665 - Medications Medications: Current Medications Acetaminophen (Tylenol 650mg/20.3ml Solution Ud) 650 mg PO Q6H PRN PRN Reason: Temperature >100.4 Last Admin: 08/05/17 12:20 Dose: 650 mg Albuterol/Ipratropium (Duoneb 3 Mg/0.5 Mg (3 Ml) Ud) 3 ml INH RQ6 [facility] Last Admin: 08/06/17 13:44 Dose: 3 ml Clotrimazole (Lotrimin 1%) 1 gm TOP BID [facility] Last Admin: 08/06/17 09:04 Dose: 1 applic Dextrose (Dextrose 50% Inj) 0 ml IV STAT PRN; Protocol PRN Reason: Hypoglycemia Protocol Last Admin: 08/03/17 17:55 Dose: 50 ml Furosemide (Lasix) 20 mg IVP Q12 [facility] Last Admin: 08/06/17 09:12 Dose: 20 mg Heparin Sodium (Porcine) (Heparin) 5,000 units SC Q12 [facility] Last Admin: 08/06/17 09:11 Dose: 5,000 units Lacosamide 100 mg/ Sodium (Chloride) 110 mls @ 110 mls/hr IV Q12H [facility] Last Admin: 08/06/17 09:30 Dose: 110 mls/hr Gentamicin Sulfate 70 mg/ (Sodium Chloride) 101.75 mls @ 100 mls/hr IVPB Q24H [facility] Stop: 08/08/17 03:32 Last Admin: 08/06/17 01:53 Dose: 100 mls/hr Levetiracetam 500 mg/ Sodium (Chloride) 105 mls @ 420 mls/hr IVPB Q12H [facility] Last Admin: 08/06/17 09:04 Dose: 420 mls/hr Vancomycin HCl (Vancocin 750mg/Ns 150 Ml) 150 mls @ 100 mls/hr IVPB Q12H [facility] Last Admin: 08/06/17 13:05 Dose: 100 mls/hr Lactobacillus Acidophilus (Bacid Acidophilus) 1 cap PO BID [facility] Last Admin: 08/06/17 09:12 Dose: 1 cap Losartan Potassium (Cozaar) 25 mg PO DAILY [facility] Last Admin: 08/06/17 09:12 Dose: 25 mg Metoprolol Tartrate (Lopressor) 50 mg PO BID [facility] Last Admin: 08/06/17 12:24 Dose: Not Given Metoprolol Tartrate (Lopressor) 5 mg IVP Q6H [facility] Last Admin: 08/06/17 09:11 Dose: 5 mg Pantoprazole Sodium (Protonix Inj) 40 mg IVP Q12 [facility] Last Admin: 08/06/17 09:11 Dose: 40 mg Rifampin (Rifampin Cap) 300 mg PO TID [facility] Last Admin: 08/06/17 13:15 Dose: 300 mg Rosuvastatin Calcium (Crestor) 40 mg PO HS [facility] Last Admin: 08/05/17 21:15 Dose: 40 mg Spironolactone (Aldactone) 12.5 mg PO BID [facility] Last Admin: 08/06/17 12:31 Dose: 12.5 mg Tolvaptan (Samsca) 30 mg PO DAILY [facility] - Labs Labs: 08/06/17 06:17 08/06/17 06:16 PT 14.6 SECONDS (9.7-12.2) H 08/01/17 19:55 INR 1.3 08/01/17 19:55 APTT 47 SECONDS (21-34) H 08/01/17 19:55 Assessment and Plan - Assessment and Plan (Free Text) Assessment: Patient with twitching of her right face with differential or epc, hemifacial spasm severe or focal seizures. As of yet, there is no etiology for focal events. Plan: 1. EEG bryson 2. Increase keppra to 1000 mg IV now and continue on 750 mg bid.
--- NOTE | 2017-08-06 16:39 | CP.PCM.PN ---
Subjective - Date & Time of Evaluation Date of Evaluation: 08/06/17 Time of Evaluation: 16:30 - Subjective Subjective: Hospitalist Progress Note Patient was seen and examined at 4:30 PM 08/06/17 ICU BED #6 Patient is awake with NGT and NONrepsonsive to questioning therefore ROS is NOT possible. Spoke with Nurse Lissa and patient did have bowel movement today. EXAM: - Constitutional Appears: Non-toxic, No Acute Distress, However there is a twitching of mostly the right side of the face that occurs every 2 to 3 seconds - Head Exam Head Exam: NORMAL INSPECTION - Eye Exam Eye Exam: Pupils are reactive to light. The Right Pupil is greater in size than the Left Pupil - Neck Exam Neck Exam: NO cervical/supraclavicular/submandibular lymphadenopathy, NO thyromegaly - Respiratory Exam Respiratory Exam: Clear to Ausculation Bilateral, NORMAL BREATHING PATTERN. absent: Rales, Rhonchi, Wheezes - Cardiovascular Exam Cardiovascular Exam: Normal +S1, +S2, NO M/R/G - GI/Abdominal Exam GI & Abdominal Exam: Soft, ND, BSX4 are decreased, NO guarding, NO rebound tenderness - Extremities Exam Extremities Exam: NO edema present in the arms and legs, Capillary refill is 2 seconds, Pulses are strong and equal, Right Arm PICC Line Left knee edema without erythema and two stitches (lateral and medial) are present - Neurological Exam Neurological Exam: Awake with twitching present mostly on the right side of the face that occurs every 2 to 3 seconds - Skin Skin Exam: Bilateral groin area with a rash that is erythematous with scalloping borders, Lumbar/Sacral blanchable erythema Assessment and Plan (1) New onset seizure Assessment & Plan: * 08/01: per review of ED triage note: Via ALS from [facility], prior notification of resident experiencing ''jerky movements few secs for a total of 3 episodes''; seizure-like activity witnessed by ALS, treated with ATIVAN 2MG IV GIVEN VIA PICC LINE TO RT ARM PER REPORT GIVEN; on NRB 100%, QHV=601on/d * 08/01: Per review of ED note: In ambulance, given Ativan 2mg on route, NIHSS: 29 (noted for dysarthria and profound neglect does not recognize own hand or oreitns to one side. ED attempted to reverse with Flumazenil given patient appeared comatose. Intubated in the ED for airway protection with etomidate * Code stroke 08/01/17 GCS: 4 * Factors for seizure activity: * Precipitating factors: hyponatremia, hypokalemia, hypomagnesium * Antibiotic side effect: gentamicin (seizure, confusion, lethargy per uptodate ), rifampin (fatigue, drowsiness, confusion), Cefazolin (seizure) * pain medication: tramadol * Imaging: * CT head (08/01/17): nonspecific white matter changes. Acute infarction may be CT occult within first 24 hours. If a focal deficit persists, consider for further evaulation. Atherosclerotic disease of intracranial arteries. probable chronic lacunar infarcts within basal ganglia. * CT Head and neck (08/01/17): no flow limiting cervical cartoid artery stenosis or vessel occlusion. Patent vertebral arteries * CT Head (08/02/17): no evidence of acute infarct. Chronic microvascular white matter ischemic change. otherwise unremarkable. * MRI Brain (08/05/17): NO acute intracranial hemorrhage. Moderate chronic white matter changes with scattered small basal nuclei, brain stem, and left cerebellar lacunar infarcts * MRI Neck (08/05/17): NO evidence of any significant stenosis of the carotid arteries * MRI Brain (08/05/17): Right distal Posterior Cerebral Artery can't be visualized but this may be artifactual vs occlusion can't be excluded. * Neurology (Dr. Cornejo) on board-->help appreciated * F/u EEG * Vimpat 100mg IVP Q12H * Keppra 500 mg IV Q12H * PICC line (had been placed 07/24/17). * Monitor electrolytes Status: Acute (2) Hypokalemia Assessment & Plan: * Replete as needed Status: Acute (3) Hyponatremia/SIADH Assessment & Plan: * Nephrology (Dr. Eddy) on the case-->help appreciated * SIADH * Could also be secondary to the Keppra? * Patient has been receiving Tolvaptan 30 mg PO 1x/day on 08/03/17/, 08/04/17, , 08/06/17. However patient is also on Rifampin (as part of treatment for Left Knee Septic Arthritis) and this may interfere with the Tolvaptan * Lasix 20 mg IV Q12H Status: Acute (4) Septic arthritis Assessment & Plan: * Infectious Disease (Dr. Jannie Avina) on the case-->help appreciated * From last admission: * On 07/19/17: Left knee arthroscopic. #1 I&D. #2 extensive synovectomy. #3 synovial biopsy and culture acquisition. #4 partial medial and lateral menisectomies. #5 chondroplasty trochlea * Post-Operative Diagnoses: Left knee #1 septic arthritis. #2 inflammatory synovitis. #3 crystal arthropathy/ pseudogout. #4 deg/complex medial meniscal tear. #5 deg/ complex lateral meniscal tear. #6 chondromalacia trochlea/MFC/ LFC, early DJD patella * 07/19/17: MSSA in Left knee and left Synovial sample * 07/16/17: Blood culture: no growth after 5 days * 07/23/17: Blood culture: no growth after 5 days * Patient was discharged on Ancef, Rifampin, and gentamicin. MICS available (07/26) and came back on 08/01/17. * Start Gentamicin Sulfate 70mg IVPB Q24H (active 08/04/17) X 5 bags with last dose on 08/08/17 * Monitor renal function * Start Rifampin 300mg PO TID (08/02/17) * Will impact Samsca * Start Vancomycin 750mg IVPB Q12H (active since 08/03/17) * Monitor renal function * She will need a total of 6 weeks of Antibiotics Status: Chronic (5) H/O mitral valve replacement (bioprosthetic valve) Assessment & Plan: * Cardiology (Dr. Rowan) on the case-->help appreciated; Dr. Rush covering this weekend * Will need to follow-up in regards anticoagulation such as aspirin in regards to bioprosthetic valvue * Per cardiology, do not start chemical anticoagulation given recurrent history of GI bleeding * Echocardiogram (08/02/17): No ASD seen. * Echocardiogram (07/22/17): limited study, vegetation on MV cannot be excluded. Rec. ASTRID to define MV/Calcified mitral ring? * Echocardiogram (07/01/17): systolic function is severely impaired. Anterior and septa; aldridge reveal dyskinesis with wall thinning. (indicative of prior transmural FL), inferior wall is severely hypokinestic, lateral wall is mod to severely hypokinetic, Left atrium is moderately dilated, right atrium is moderately dilated, mild concentric left ventricular hypertrophy, mild mitral valve stenosis, * Cardiac cath: severe multivessel coronary artery disease, severe left ventricular systolic dysfunction (2017) * Hx CABG * Prosthetic valve * Will she need ASTRID considering findings on MRI Brain 08/05/17? Likely NOT as this study showed chronic lacunar infarcts Status: Chronic (6) Diabetes mellitus Assessment & Plan: * [id number]: 5.1 * Controlled * Accuchecks Q6H Status: Chronic (7) Hypertension Assessment & Plan: * Lopressor 50mg PO BID * Crestor 2.5mg POqHS * Cozaar 25mg PO daily Status: Chronic (8) Hx Coronary artery disease/CABG Status: Chronic * Lopressor 50mg PO BID * Crestor 2.5mg POqHS * Cozaar 25mg PO daily (9) Severe systolic congestive heart failure Assessment & Plan: * Lopressor, Cozaar * Lasix 20 mg IV Q12H * On last admission recommends for outpatient AICD by Dr Rowan Status: Chronic (10) Atelectasis Assessment & Plan: * CT Chest (08/02/17): small right pleural effusion and right lower lobe subsegmental atelectasis. Opacity seen at right lung base on earlier chest radiograph of the same date was likely artifactual due to overlying medical equipment Status: Acute (11) Paroxysmal Atrial Fibrillation Assessment & Plan: * Lopressor 5mg IVPQ6H * Lopressor 50mg PO BID * Per cardiology, hold chemical anticoagulation, patient has history of recurrent GI bleed, awaiting brain MRI, may or may not need ASTRID Status: Acute (12) Fungal Rash * Inner groin folds and back side * Lotrimin 1% cream (13) Prophylactic measure Assessment & Plan: * Heparin 5000 units [id number] * Protonix 40mg IVP Q12H * Bacid 1 cap PO BID * Tylenol 650 mg Q6H PRN Fever * Duoneb Q6H PRN * PT/OT eval * Wound care ICU Resident to reach out to Orthopedics Dr. Russell Villalpando to determine when Left Knee sutures can be removed. I spoke with Nurse Lissa and she tried multiple times today to get EEG performed however unsuccessful. Will attempt first thing in the morning 08/07/17. Harsh Stokes D.O. Objective - Vital Signs/Intake and Output Vital Signs (last 24 hours): Temp Pulse Resp BP Pulse Ox 98.8 F 81 22 132/74 100 08/06/17 04:00 08/06/17 07:07 08/06/17 07:07 08/06/17 09:12 08/06/17 07:07 Intake and Output: 08/06/17 08/06/17 06:59 18:59 Intake Total 510 979 Output Total 1175 Balance -665 979 - Medications Medications: Current Medications Acetaminophen (Tylenol 650mg/20.3ml Solution Ud) 650 mg PO Q6H PRN PRN Reason: Temperature >100.4 Last Admin: 08/05/17 12:20 Dose: 650 mg Albuterol/Ipratropium (Duoneb 3 Mg/0.5 Mg (3 Ml) Ud) 3 ml INH RQ6 [facility] Last Admin: 08/06/17 13:44 Dose: 3 ml Clotrimazole (Lotrimin 1%) 1 gm TOP BID [facility] Last Admin: 08/06/17 09:04 Dose: 1 applic Dextrose (Dextrose 50% Inj) 0 ml IV STAT PRN; Protocol PRN Reason: Hypoglycemia Protocol Last Admin: 08/03/17 17:55 Dose: 50 ml Furosemide (Lasix) 20 mg IVP Q12 [facility] Last Admin: 08/06/17 09:12 Dose: 20 mg Heparin Sodium (Porcine) (Heparin) 5,000 units SC Q12 [facility] Last Admin: 08/06/17 09:11 Dose: 5,000 units Lacosamide 100 mg/ Sodium (Chloride) 110 mls @ 110 mls/hr IV Q12H [facility] Last Admin: 08/06/17 09:30 Dose: 110 mls/hr Gentamicin Sulfate 70 mg/ (Sodium Chloride) 101.75 mls @ 100 mls/hr IVPB Q24H [facility] Stop: 08/08/17 03:32 Last Admin: 08/06/17 01:53 Dose: 100 mls/hr Levetiracetam 500 mg/ Sodium (Chloride) 105 mls @ 420 mls/hr IVPB Q12H [facility] Last Admin: 08/06/17 09:04 Dose: 420 mls/hr Vancomycin HCl (Vancocin 750mg/Ns 150 Ml) 150 mls @ 100 mls/hr IVPB Q12H [facility] Last Admin: 08/06/17 13:05 Dose: 100 mls/hr Lactobacillus Acidophilus (Bacid Acidophilus) 1 cap PO BID [facility] Last Admin: 08/06/17 09:12 Dose: 1 cap Losartan Potassium (Cozaar) 25 mg PO DAILY [facility] Last Admin: 08/06/17 09:12 Dose: 25 mg Metoprolol Tartrate (Lopressor) 50 mg PO BID [facility] Last Admin: 08/06/17 12:24 Dose: Not Given Metoprolol Tartrate (Lopressor) 5 mg IVP Q6H [facility] Last Admin: 08/06/17 15:35 Dose: Not Given Pantoprazole Sodium (Protonix Inj) 40 mg IVP Q12 [facility] Last Admin: 08/06/17 09:11 Dose: 40 mg Rifampin (Rifampin Cap) 300 mg PO TID [facility] Last Admin: 08/06/17 13:15 Dose: 300 mg Rosuvastatin Calcium (Crestor) 40 mg PO HS [facility] Last Admin: 08/05/17 21:15 Dose: 40 mg Spironolactone (Aldactone) 12.5 mg PO BID [facility] Last Admin: 08/06/17 12:31 Dose: 12.5 mg Tolvaptan (Samsca) 30 mg PO DAILY [facility] - Labs Labs: 08/06/17 06:17 08/06/17 06:16 PT 14.6 SECONDS (9.7-12.2) H 08/01/17 19:55 INR 1.3 08/01/17 19:55 APTT 47 SECONDS (21-34) H 08/01/17 19:55
--- NOTE | 2017-08-06 18:01 | CP.PCM.PN ---
Subjective - Date & Time of Evaluation Date of Evaluation: 08/06/17 Time of Evaluation: 18:01 - Subjective Subjective: tmax 99.3 tacycardiac /tachypneic awake unresponsive. +rt. facial tics +VE RT. GAZE/AND RT.HEMIPERESIS ? NEW. LABS/RADIOLOY REVIEWED. VANCO TROUGH 08/06/17 17.6-OK BUN 14/ CREAT N. NA 130. MRI BRAIN: NO ICH, MULTIPLE , SCATTERED SMALL BASAL NUCLEI, BRAIN STEM AND LEFT CEREBELLAR LACUNAR INFARCTS. ? EMBOLIC/VS ISCHEMIC Objective - Vital Signs/Intake and Output Vital Signs (last 24 hours): Temp Pulse Resp BP Pulse Ox 98.8 F 91 H 21 124/61 96 08/06/17 04:00 08/06/17 16:07 08/06/17 16:07 08/06/17 16:07 08/06/17 16:07 Intake and Output: 08/06/17 08/06/17 06:59 18:59 Intake Total 510 979 Output Total 1175 Balance -665 979 - Medications Medications: Current Medications Acetaminophen (Tylenol 650mg/20.3ml Solution Ud) 650 mg PO Q6H PRN PRN Reason: Temperature >100.4 Last Admin: 08/05/17 12:20 Dose: 650 mg Albuterol/Ipratropium (Duoneb 3 Mg/0.5 Mg (3 Ml) Ud) 3 ml INH RQ6 [facility] Last Admin: 08/06/17 13:44 Dose: 3 ml Clotrimazole (Lotrimin 1%) 1 gm TOP BID [facility] Last Admin: 08/06/17 17:59 Dose: 1 applic Dextrose (Dextrose 50% Inj) 0 ml IV STAT PRN; Protocol PRN Reason: Hypoglycemia Protocol Last Admin: 08/03/17 17:55 Dose: 50 ml Furosemide (Lasix) 20 mg IVP Q12 [facility] Last Admin: 08/06/17 09:12 Dose: 20 mg Heparin Sodium (Porcine) (Heparin) 5,000 units SC Q12 [facility] Last Admin: 08/06/17 09:11 Dose: 5,000 units Lacosamide 100 mg/ Sodium (Chloride) 110 mls @ 110 mls/hr IV Q12H [facility] Last Admin: 08/06/17 09:30 Dose: 110 mls/hr Gentamicin Sulfate 70 mg/ (Sodium Chloride) 101.75 mls @ 100 mls/hr IVPB Q24H [facility] Stop: 08/08/17 03:32 Last Admin: 08/06/17 01:53 Dose: 100 mls/hr Levetiracetam 500 mg/ Sodium (Chloride) 105 mls @ 420 mls/hr IVPB Q12H [facility] Last Admin: 08/06/17 09:04 Dose: 420 mls/hr Vancomycin HCl (Vancocin 750mg/Ns 150 Ml) 150 mls @ 100 mls/hr IVPB Q12H [facility] Last Admin: 08/06/17 13:05 Dose: 100 mls/hr Lactobacillus Acidophilus (Bacid Acidophilus) 1 cap PO BID [facility] Last Admin: 08/06/17 18:00 Dose: 1 cap Losartan Potassium (Cozaar) 25 mg PO DAILY [facility] Last Admin: 08/06/17 09:12 Dose: 25 mg Metoprolol Tartrate (Lopressor) 50 mg PO BID [facility] Last Admin: 08/06/17 17:59 Dose: 50 mg Metoprolol Tartrate (Lopressor) 5 mg IVP Q6H [facility] Last Admin: 08/06/17 15:35 Dose: Not Given Pantoprazole Sodium (Protonix Inj) 40 mg IVP Q12 [facility] Last Admin: 08/06/17 09:11 Dose: 40 mg Rifampin (Rifampin Cap) 300 mg PO TID [facility] Last Admin: 08/06/17 17:59 Dose: 300 mg Rosuvastatin Calcium (Crestor) 40 mg PO HS [facility] Last Admin: 08/05/17 21:15 Dose: 40 mg Spironolactone (Aldactone) 12.5 mg PO BID [facility] Last Admin: 08/06/17 17:59 Dose: 12.5 mg - Labs Labs: 08/06/17 06:17 08/06/17 06:16 PT 14.6 SECONDS (9.7-12.2) H 08/01/17 19:55 INR 1.3 08/01/17 19:55 APTT 47 SECONDS (21-34) H 08/01/17 19:55 - Constitutional Appears: No Acute Distress, Chronically Ill - Head Exam Head Exam: NORMAL INSPECTION - Eye Exam Pupil Exam: Unequal - ENT Exam ENT Exam: Mucous Membranes Moist - Neck Exam Neck Exam: Normal Inspection - Cardiovascular Exam Cardiovascular Exam: Tachycardia, REGULAR RHYTHM, +S1, +S2 - GI/Abdominal Exam GI & Abdominal Exam: Soft, Normal Bowel Sounds - Extremities Exam Extremities Exam: absent: Calf Tenderness, Pedal Edema - Psychiatric Exam Psychiatric exam: Flat Affect - Skin Skin Exam: Normal Color, Warm Assessment and Plan (1) New onset seizure Status: Acute (2) Hypokalemia Status: Acute (3) Hyponatremia Status: Acute (4) PAF (paroxysmal atrial fibrillation) Status: Acute (5) Septic arthritis Status: Chronic (6) Osteomyelitis of left knee region Status: Acute (7) H/O mitral valve replacement Status: Chronic (8) Diabetes mellitus Status: Chronic - Assessment and Plan (Free Text) Assessment: NEW ONSET OF SEIZURES ? R/O EMBOLI TO BRAIN VS ELECTROLYTE IMBALANCE -CVA with RT .HEMIPERESIS - MSSA SEPTIC ARTHRITIS LEFT KNEE/WITH PSEUDOGOUT /? OSTEOMYLITIS -S/P ARTHROSCOPIC IRRIGATION/DEBRIDEMENT, LEFT KNEE ARTHROSCOPIC PATELLAR MEDIAL /LATERAL MENISCECTOMY AND EXTENSIVE SYNOVECTOMY/CHONDROPLASTY TROCHLEA 07/19/17 - PROSTHETIC MITRAL- VALVE ENDOCARDITIS.(+VE VEGETATIONS could NOT BE RULED OUT ON 2-d ECHO ). -HX OF CABG /MVR. -CONGESTIVE HEART FAILURE. -PAROXSYSMAL ATRIAL FIBRILLATION. -ELECTROLYTE IMBALANCE -SIADH -DM-2 -RHEUMATOID ARTHRITIS/OSTEOPOROSIS BY HISTORY. PLAN . . ON IV VANCOMYCIN 1GM LD , F/U BY 750MG IV Q 12HRLY 08/03/17 CONTINUE PO RIFAMPIN 300MG PO TID. CONTINUE IV GENTAMICIN 70 MILLIGRAMS iv PIGGYBACK ONCE A DAY DAILY X 5 MORE DAYS TO COMPLETE 2WKS RX (07/24/17 TILL 08/07/17 ) F/U RENAL FUNCTION CLOSELY NEURO W/U IN PROGRESS. EEG -P IV FLUIDS/ PER DR LEVY-RENAL. TO DISCUSS WITH CARDIOLOGY ?ASTRID TO R/O VEGETATION AND SEPTIC EMBOLI. CASE DISCUSSED WITH STAFF /AND DR BAUGH -STEMMER MACHINE.
[2017-08-06] MEDS: Acetaminophen 650mg/20.3ml solution UD PO PRN (20:57)
--- NOTE | 2017-08-06 22:59 | CP.PCM.PN ---
Subjective - Date & Time of Evaluation Date of Evaluation: 08/06/17 Time of Evaluation: 18:00 - Subjective Subjective: No change in mental status per nursing staff (awake but not alert or following commands) Objective - Vital Signs/Intake and Output Vital Signs (last 24 hours): Temp Pulse Resp BP Pulse Ox 100 F H 85 24 134/75 100 08/06/17 21:57 08/06/17 22:07 08/06/17 22:07 08/06/17 22:07 08/06/17 21:07 Intake and Output: 08/06/17 08/07/17 18:59 06:59 Intake Total 1059 280 Output Total 1200 300 Balance -141 -20 - Medications Medications: Current Medications Acetaminophen (Tylenol 650mg/20.3ml Solution Ud) 650 mg PO Q6H PRN PRN Reason: Temperature >100.4 Last Admin: 08/06/17 20:57 Dose: 650 mg Albuterol/Ipratropium (Duoneb 3 Mg/0.5 Mg (3 Ml) Ud) 3 ml INH RQ6 [facility] Last Admin: 08/06/17 20:49 Dose: 3 ml Clotrimazole (Lotrimin 1%) 1 gm TOP BID [facility] Last Admin: 08/06/17 17:59 Dose: 1 applic Dextrose (Dextrose 50% Inj) 0 ml IV STAT PRN; Protocol PRN Reason: Hypoglycemia Protocol Last Admin: 08/03/17 17:55 Dose: 50 ml Furosemide (Lasix) 20 mg IVP Q12 [facility] Last Admin: 08/06/17 21:08 Dose: 20 mg Heparin Sodium (Porcine) (Heparin) 5,000 units SC Q12 [facility] Last Admin: 08/06/17 21:08 Dose: 5,000 units Lacosamide 100 mg/ Sodium (Chloride) 110 mls @ 110 mls/hr IV Q12H [facility] Last Admin: 08/06/17 22:03 Dose: 110 mls/hr Gentamicin Sulfate 70 mg/ (Sodium Chloride) 101.75 mls @ 100 mls/hr IVPB Q24H [facility] Stop: 08/08/17 03:32 Last Admin: 08/06/17 01:53 Dose: 100 mls/hr Levetiracetam 500 mg/ Sodium (Chloride) 105 mls @ 420 mls/hr IVPB Q12H [facility] Last Admin: 08/06/17 21:09 Dose: 420 mls/hr Vancomycin HCl (Vancocin 750mg/Ns 150 Ml) 150 mls @ 100 mls/hr IVPB Q12H [facility] Last Admin: 08/06/17 13:05 Dose: 100 mls/hr Lactobacillus Acidophilus (Bacid Acidophilus) 1 cap PO BID [facility] Last Admin: 08/06/17 18:00 Dose: 1 cap Losartan Potassium (Cozaar) 25 mg PO DAILY [facility] Last Admin: 08/06/17 09:12 Dose: 25 mg Metoprolol Tartrate (Lopressor) 50 mg PO BID [facility] Last Admin: 08/06/17 17:59 Dose: 50 mg Metoprolol Tartrate (Lopressor) 5 mg IVP Q6H [facility] Last Admin: 08/06/17 20:56 Dose: 5 mg Pantoprazole Sodium (Protonix Inj) 40 mg IVP Q12 [facility] Last Admin: 08/06/17 21:08 Dose: 40 mg Rifampin (Rifampin Cap) 300 mg PO TID [facility] Last Admin: 08/06/17 17:59 Dose: 300 mg Rosuvastatin Calcium (Crestor) 40 mg PO HS [facility] Last Admin: 08/06/17 21:29 Dose: 40 mg Spironolactone (Aldactone) 12.5 mg PO BID [facility] Last Admin: 08/06/17 17:59 Dose: 12.5 mg - Labs Labs: 08/06/17 06:17 08/06/17 06:16 PT 14.6 SECONDS (9.7-12.2) H 08/01/17 19:55 INR 1.3 08/01/17 19:55 APTT 47 SECONDS (21-34) H 08/01/17 19:55 - Constitutional Appears: Non-toxic, No Acute Distress - Eye Exam Eye Exam: Normal appearance. absent: Scleral icterus - ENT Exam ENT Exam: Mucous Membranes Moist - Respiratory Exam Respiratory Exam: Clear to Ausculation Bilateral. absent: Respiratory Distress - Cardiovascular Exam Cardiovascular Exam: RRR, +S1, +S2 - GI/Abdominal Exam GI & Abdominal Exam: Soft. absent: Distended, Tenderness - Extremities Exam Additional comments: mild leg edema - Neurological Exam Neurological Exam: Awake. absent: Alert - Psychiatric Exam Psychiatric exam: absent: Agitated - Skin Skin Exam: Warm. absent: Cyanosis Assessment and Plan (1) Hyponatremia Assessment & Plan: Much improved; would benefit from continuing with tolvaptan though med not available today; started on aldactone, Na may drop; monitor; Status: Acute (2) CHF (congestive heart failure) Assessment & Plan: With severe systolic dysfunction; continue lasix IV 20 mg q12h, aldactone started at 12.5 mg bid; Status: Chronic (3) Septic arthritis Assessment & Plan: On vanco and gent; vanco trough at goal (15-20); checking gent trough; Status: Chronic
[2017-08-07] MEDS: Vancomycin 750mg/NS 150 ml 150 ML IVPB SCH ×2 (00:02→15:06)
[2017-08-07] MEDS: Albuterol-Ipratrop 3 mg / 0.5 (3 ml) UD INH SCH ×4 (01:51→20:58)
[2017-08-07] MEDS: Gentamicin 70 MG in Sodium Chloride 0.9% 100 ML IVPB SCH (02:48)
[2017-08-07] MEDS: Metoprolol 1 mg/ml Inj IVP SCH ×4 (03:47→22:36)
[2017-08-07 06:51] LABS: MEAN CELL VOLUME 87.6 fL (81.0-99.0); MEAN CORPUSCULAR HEMOGLOBIN 29.8 pg (27.0-31.0); MEAN CORPUSCULAR HGB CONC 34.1 g/dL (33.0-37.0); MEAN PLATELET VOLUME 8.5 fL (7.2-11.7); RBC 2.67 Mil/uL (3.80-5.20); RED CELL DISTRIBUTION WIDTH 17.4 % (11.5-14.5); WHITE BLOOD COUNT 4.8 K/uL (4.8-10.8)
[2017-08-07 06:57] LABS: ALB/GLOB RATIO 0.5 (1.0-2.1); ALBUMIN 2.5 g/dL (3.5-5.0); ALT/SGPT 8 U/L (9-52); AST/SGOT 46 U/L (14-36); BLOOD UREA NITROGEN 15 mg/dL (7-17); CALCIUM 8.2 mg/dl (8.6-10.4); GFR AFRICAN-AMERICAN > 60; GFR NON-AFRICAN AMERICAN > 60; MAGNESIUM 1.7 mg/dL (1.6-2.3)
--- NOTE | 2017-08-07 07:29 | CP.PCM.PN ---
Subjective - Date & Time of Evaluation Date of Evaluation: 08/07/17 Time of Evaluation: 07:20 - Subjective Subjective: Ms Mobley was seen and examined at the bedside in ICU. She is non-verbal , moves her left upper extremity but her right upper extremity remains flaccid. Her bilateral lower extremities moves minimally with noxious stimuli. According to the staff, she has the involuntary movements, with facial twitching last night. She is unable to follow any commands. MRI of the brain showed no acute intracranial hemorrhage, moderate chronic white matter the ischemic changes with scattered small basal nuclei, brainstem and left cerebellar lacunar type infarcts. Moderate to fairly significant generalized volume loss. MRA of the head showed suboptimal diagnostic due to patient motion. Patent anterior circulation. the right distal posterior cerebral artery is not well visualized which may be artifactual however a occlusion cannot be excluded. Petent left posterior cerebral artery, vertebral, basilar arteries. MRA of the neck showed no evidence of hemodynamically significant stenosis in the ICA. Patent vertebral arteries. Objective - Vital Signs/Intake and Output Vital Signs (last 24 hours): Temp Pulse Resp BP Pulse Ox 98.4 F 72 15 122/60 100 08/07/17 04:00 08/07/17 07:00 08/07/17 07:00 08/07/17 06:07 08/07/17 07:00 Intake and Output: 08/07/17 08/07/17 06:59 18:59 Intake Total 710 20 Output Total 980 Balance -270 20 - Medications Medications: Current Medications Acetaminophen (Tylenol 650mg/20.3ml Solution Ud) 650 mg PO Q6H PRN PRN Reason: Temperature >100.4 Last Admin: 08/06/17 20:57 Dose: 650 mg Albuterol/Ipratropium (Duoneb 3 Mg/0.5 Mg (3 Ml) Ud) 3 ml INH RQ6 [facility] Last Admin: 08/07/17 01:51 Dose: 3 ml Clotrimazole (Lotrimin 1%) 1 gm TOP BID [facility] Last Admin: 08/06/17 17:59 Dose: 1 applic Dextrose (Dextrose 50% Inj) 0 ml IV STAT PRN; Protocol PRN Reason: Hypoglycemia Protocol Last Admin: 08/03/17 17:55 Dose: 50 ml Furosemide (Lasix) 20 mg IVP Q12 [facility] Last Admin: 08/06/17 21:08 Dose: 20 mg Heparin Sodium (Porcine) (Heparin) 5,000 units SC Q12 [facility] Last Admin: 08/06/17 21:08 Dose: 5,000 units Lacosamide 100 mg/ Sodium (Chloride) 110 mls @ 110 mls/hr IV Q12H [facility] Last Admin: 08/06/17 22:03 Dose: 110 mls/hr Gentamicin Sulfate 70 mg/ (Sodium Chloride) 101.75 mls @ 100 mls/hr IVPB Q24H [facility] Stop: 08/08/17 03:32 Last Admin: 08/07/17 02:48 Dose: Not Given Levetiracetam 500 mg/ Sodium (Chloride) 105 mls @ 420 mls/hr IVPB Q12H [facility] Last Admin: 08/06/17 21:09 Dose: 420 mls/hr Vancomycin HCl (Vancocin 750mg/Ns 150 Ml) 150 mls @ 100 mls/hr IVPB Q12H [facility] Last Admin: 08/07/17 00:02 Dose: 100 mls/hr Lactobacillus Acidophilus (Bacid Acidophilus) 1 cap PO BID [facility] Last Admin: 08/06/17 18:00 Dose: 1 cap Losartan Potassium (Cozaar) 25 mg PO DAILY [facility] Last Admin: 08/06/17 09:12 Dose: 25 mg Metoprolol Tartrate (Lopressor) 50 mg PO BID [facility] Last Admin: 08/06/17 17:59 Dose: 50 mg Metoprolol Tartrate (Lopressor) 5 mg IVP Q6H [facility] Last Admin: 08/07/17 03:47 Dose: 5 mg Pantoprazole Sodium (Protonix Inj) 40 mg IVP Q12 [facility] Last Admin: 08/06/17 21:08 Dose: 40 mg Rifampin (Rifampin Cap) 300 mg PO TID [facility] Last Admin: 08/06/17 17:59 Dose: 300 mg Rosuvastatin Calcium (Crestor) 40 mg PO HS [facility] Last Admin: 08/06/17 21:29 Dose: 40 mg Spironolactone (Aldactone) 12.5 mg PO BID [facility] Last Admin: 08/06/17 17:59 Dose: 12.5 mg - Labs Labs: 08/06/17 06:17 08/07/17 06:37 PT 14.6 SECONDS (9.7-12.2) H 08/01/17 19:55 INR 1.3 08/01/17 19:55 APTT 47 SECONDS (21-34) H 08/01/17 19:55 - Constitutional Appears: No Acute Distress - Head Exam Head Exam: NORMAL INSPECTION - Neurological Exam Neurological Exam: Awake Neuro motor strength exam: Left Upper Extremity: 2/1, Right Upper Extremity: 0, Left Lower Extremity: 0, Right Lower Extremity: 0 Additional comments: She is non-verbal and unable to follow simple commands. Assessment and Plan (1) Seizure Assessment & Plan: Case discussed with Dr. Moreno, continue all current medical regimen. Pending EEG result. Recommend to repeat CTA of the head to evaluate the posterior cerebral artery. Status: Acute
[2017-08-07] MEDS ORDERED: Iodixanol 320 MG/ML 100 ML BOTTLE IV ONE (09:15)
[2017-08-07] MEDS: levETIRAcetam 500 MG in Sodium Chloride 0.9% 100 ML IVPB SCH (09:47)
[2017-08-07] MEDS ORDERED: Potassium Chloride 20 mEq/15 ml LIQ UD PO ONE ×2 (09:51→21:43)
[2017-08-07] MEDS: Lactobacillus Acidophilus 500 MU Cap PO SCH ×2 (09:57→17:56)
--- NOTE | 2017-08-07 10:13 | RAD ---
HISTORY: Pneumonia COMPARISON: Comparison made with prior study dated 08/05/2017. FINDINGS: In situ NGT, the tip of which has not been included on this film though distal aspect does lie well below EG junction . Right-sided PICC line with tip in the SVC josselin unchanged. LUNGS: Mild pulmonary vascular congestive changes possibly representing chronic compensated pulmonary edema/CHF wall bilateral effusions. PLEURA: As above. No pneumothorax apparent. CARDIOVASCULAR: Sternotomy wires and CABG clips prostatic mitral valve again noted. Cardiomegaly. OSSEOUS STRUCTURES: No significant abnormalities. VISUALIZED UPPER ABDOMEN: Normal. OTHER FINDINGS: None. IMPRESSION: NGT and right-sided PICC line unchanged Mild pulmonary vascular congestion with small bilateral effusions.
[2017-08-07 10:30] LABS: EOS # 0.2 K/uL (0.0-0.7); LYMPH # 0.5 K/uL (1.0-4.3); MONO # 0.6 K/uL (0.0-0.8); NEUT # 3.5 K/uL (1.8-7.0)
[2017-08-07] MEDS: Lacosamide 200mg/20ml 100 MG in Sodium Chloride 0.9% 100 ML IV SCH ×2 (10:37→21:33)
[2017-08-07] MEDS: Clotrimazole 1% Cream(30 gm) TOP SCH ×2 (10:42→18:00)
--- NOTE | 2017-08-07 11:19 | CT ---
PROCEDURE: CT angiogram of the neck and brain dated 08/07/2017. HISTORY: Evaluation of the posterior cerebral artery COMPARISON: Comparison made with prior MRA brain 08/05/2014 TECHNIQUE: Contiguous helical/transaxial images of the neck were obtained from the level of the skull-base to the superior mediastinum in the arteriographic phase of enhancement. Coronal and sagittal reformats or also generated. IV contrast dose: 100 cc Visipaque Radiation Dose - DLP: 512.48 mGy-cm This CT exam was performed using one or more of the following dose reduction techniques: Automated exposure control, adjustment of the mA and/or kV according to patient size, and/or use of iterative reconstruction technique. . FINDINGS: There is dilatation of the ascending thoracic aorta measuring approximately 3.8 cm. Descending thoracic aorta measures approximately 3.3 cm. Partially calcified atherosclerotic plaque seen thoracic aorta as well as the origins of the great vessels. Mild partially calcified plaque changes seen mid right common carotid artery with minimal partially calcified plaque changes left mid common carotid artery. No significant stenosis. Moderate partially calcified atherosclerotic plaque seen along the distal left and right common carotid artery extending into the left carotid bifurcation and proximal internal carotid artery. (estimated approximately 50 % diameter stenosis right carotid bifurcation and approximately 60- 65 % on the left carotid bifurcation), There small calcified plaque along the inferior aspect of the mid petrous segment however petrous segments of the internal carotid arteries are patent. There are calcified atherosclerotic plaque changes also seen along the cavernous segments of the carotid arteries left greater than right with moderate left-sided stenosis. Minor right-sided stenosis. Calcified plaque extends into the proximal supraclinoid segments. . There are tiny calcified plaque seen proximal mid and distal cervical vertebral arteries however no evidence of occlusion or significant stenosis. There is asymmetry of the vertebral arteries right-sided which is larger in caliber/more dominant than the left side. Partially calcified plaque changes also noted along the distal vertebral arteries (the intradural segments left greater than right with fairly significant stenosis involving the left vertebral artery best visualized on axial image number [id number]. [id number] stenosis distal right vertebral artery. The basilar artery is patent. Atherosclerotic plaque changes seen along common carotid arteries, carotid bifurcations and internal carotid arteries including the cavernous and supraclinoid segments. Small calcified plaque the petrous segment left internal carotid artery. . There also calcified plaque changes seen both vertebral arteries most notably along the short distal intradural segments left greater than right. The visualized major branches of the [place] as well as the anterior and middle cerebral arteries and distal branches are patent and appear relatively symmetric. Posterior cerebral arteries are also patent left-sided which is slightly larger in caliber/more dominant than the right. The distal posterior cerebral arteries far as can be seen are also patent. No evidence large aneurysm nor vascular malformation. In situ NGT. . Patchy bilateral upper lobe infiltrates with moderate-sized right and smaller left-sided effusions. IMPRESSION: Atherosclerotic plaque changes seen along common carotid arteries carotid bifurcations(estimated approximately 50 % diameter stenosis right carotid bifurcation and approximately 60- 65 % left carotid bifurcation), and internal carotid arteries including the cavernous and supraclinoid segments as above. Small calcified plaque the petrous segment left internal carotid artery. . There also calcified plaque changes seen both vertebral arteries most notably along the short distal intradural segments left greater than right. . The distal cerebral vasculature is patent and relatively symmetric. . Consider followup carotid Doppler exam for further evaluation and confirmation of percent diameter stenosis Mild dilatation of the ascending thoracic aorta as well. See above discussion for additional details and findings.
[2017-08-07] MEDS: levETIRAcetam 1,000 MG in Sodium Chloride 0.9% 100 ML IVPB SCH (15:06)
--- NOTE | 2017-08-07 15:07 | CP.PCM.PN ---
Subjective - Date & Time of Evaluation Date of Evaluation: 08/07/17 Time of Evaluation: 14:30 - Subjective Subjective: Hospitalist Progress Note Patient was seen and examined at 2:30 PM 08/07/17 ICU BED #6 Patient is awake with NGT and NONrepsonsive to questioning therefore ROS is NOT possible. Spoke with Nurse Lissa and patient did have bowel movement today. EXAM: - Constitutional Appears: Non-toxic, No Acute Distress, However there is a twitching of mostly the right side of the face that occurs every 2 to 3 seconds - Head Exam Head Exam: NORMAL INSPECTION - Eye Exam Eye Exam: Pupils are reactive to light. The Right Pupil was greater in size than the Left Pupil however on today's exam they are equal in size - Neck Exam Neck Exam: NO cervical/supraclavicular/submandibular lymphadenopathy, NO thyromegaly - Respiratory Exam Respiratory Exam: Clear to Ausculation Bilateral, NORMAL BREATHING PATTERN. absent: Rales, Rhonchi, Wheezes - Cardiovascular Exam Cardiovascular Exam: Normal +S1, +S2, NO M/R/G - GI/Abdominal Exam GI & Abdominal Exam: Soft, ND, BSX4 are now normal, NO guarding, NO rebound tenderness - Extremities Exam Extremities Exam: NO edema present in the arms and legs, Capillary refill is 2 seconds, Pulses are strong and equal, Right Arm PICC Line Left knee edema without erythema and two stitches (lateral and medial) are present - Neurological Exam Neurological Exam: Awake with twitching present mostly on the right side of the face that occurs every 2 to 3 seconds - Skin Skin Exam: Bilateral groin area with a rash that is erythematous with scalloping borders, Lumbar/Sacral blanchable erythema Assessment and Plan (1) New onset seizure Assessment & Plan: * 08/01: per review of ED triage note: Via [facility] from [facility], prior notification of resident experiencing ''jerky movements few secs for a total of 3 episodes''; seizure-like activity witnessed by ALS, treated with ATIVAN 2MG IV GIVEN VIA PICC LINE TO RT ARM PER REPORT GIVEN; on NRB 100%, RLJ=469qi/d * 08/01: Per review of ED note: In ambulance, given Ativan 2mg on route, NIHSS: 29 (noted for dysarthria and profound neglect does not recognize own hand or oreitns to one side. ED attempted to reverse with Flumazenil given patient appeared comatose. Intubated in the ED for airway protection with etomidate * Code stroke 08/01/17 GCS: 4 * Factors for seizure activity: * Precipitating factors: hyponatremia, hypokalemia, hypomagnesium * Antibiotic side effect: gentamicin (seizure, confusion, lethargy per uptodate ), rifampin (fatigue, drowsiness, confusion), Cefazolin (seizure) * pain medication: tramadol * Imaging: * CT head (08/01/17): nonspecific white matter changes. Acute infarction may be CT occult within first 24 hours. If a focal deficit persists, consider for further evaulation. Atherosclerotic disease of intracranial arteries. probable chronic lacunar infarcts within basal ganglia. * CT Head and neck (08/01/17): no flow limiting cervical cartoid artery stenosis or vessel occlusion. Patent vertebral arteries * CT Head (08/02/17): no evidence of acute infarct. Chronic microvascular white matter ischemic change. otherwise unremarkable. * MRI Brain (08/05/17): NO acute intracranial hemorrhage. Moderate chronic white matter changes with scattered small basal nuclei, brain stem, and left cerebellar lacunar infarcts * MRI Neck (08/05/17): NO evidence of any significant stenosis of the carotid arteries * MRI Brain (08/05/17): Right distal Posterior Cerebral Artery can't be visualized but this may be artifactual vs occlusion can't be excluded. * Neurology (Dr. Cornejo/Josh) on board-->help appreciated * F/u EEG planned for morning 08/08/17 * Vimpat 100 mg IVP Q12H * Keppra 1,000 mg IV Q12H * PICC line (had been placed 07/24/17). * Monitor electrolytes Status: Acute (2) Hypokalemia Assessment & Plan: * Replete as needed Status: Acute (3) Hyponatremia/SIADH Assessment & Plan: * Nephrology (Dr. Eddy) on the case-->help appreciated * SIADH * Could also be secondary to the Keppra? * Patient has received Tolvaptan 30 mg PO 1x/day on 08/03/17/, 08/04/17, 08/05/17, 08/06/17. However patient is also on Rifampin (as part of treatment for Left Knee Septic Arthritis) and this may interfere with the Tolvaptan. * Lasix 20 mg IV Q12H * Aldactone 25 mg PO Q12H Status: Acute (4) Septic arthritis Assessment & Plan: * Infectious Disease (Dr. Jannie Avina) on the case-->help appreciated * From last admission: * On 07/19/17: Left knee arthroscopic. #1 I&D. #2 extensive synovectomy. #3 synovial biopsy and culture acquisition. #4 partial medial and lateral menisectomies. #5 chondroplasty trochlea * Post-Operative Diagnoses: Left knee #1 septic arthritis. #2 inflammatory synovitis. #3 crystal arthropathy/ pseudogout. #4 deg/complex medial meniscal tear. #5 deg/ complex lateral meniscal tear. #6 chondromalacia trochlea/MFC/ LFC, early DJD patella * 07/19/17: MSSA in Left knee and left Synovial sample * 07/16/17: Blood culture: no growth after 5 days * 07/23/17: Blood culture: no growth after 5 days * Patient was discharged on Ancef, Rifampin, and gentamicin. MICS available (07/26) and came back on 08/01/17. * Gentamicin Sulfate 70mg IVPB Q24H (active 08/04/17) X 5 bags with last dose on 08/08/17 * Monitor renal function * Rifampin 300mg PO TID (08/02/17) * Will impact Samsca * Vancomycin 750mg IVPB Q12H (active since 08/03/17) * Monitor renal function * She will need a total of 6 weeks of Antibiotics * Orthopedics LONA Ann to remove sutures 08/07/17 Status: Chronic (5) H/O mitral valve replacement (bioprosthetic valve) Assessment & Plan: * Cardiology (Dr. Rowan) on the case-->help appreciated; Dr. Rush covering this weekend * Will need to follow-up in regards anticoagulation such as aspirin in regards to bioprosthetic valvue * Per cardiology, do not start chemical anticoagulation given recurrent history of GI bleeding * Echocardiogram (08/02/17): No ASD seen. * Echocardiogram (07/22/17): limited study, vegetation on MV cannot be excluded. Rec. ASTRID to define MV/Calcified mitral ring? * Echocardiogram (07/01/17): systolic function is severely impaired. Anterior and septa; aldridge reveal dyskinesis with wall thinning. (indicative of prior transmural PA), inferior wall is severely hypokinestic, lateral wall is mod to severely hypokinetic, Left atrium is moderately dilated, right atrium is moderately dilated, mild concentric left ventricular hypertrophy, mild mitral valve stenosis, * Cardiac cath: severe multivessel coronary artery disease, severe left ventricular systolic dysfunction (2017) * Hx CABG * Prosthetic valve * NO ASTRID considering findings on MRI Brain 08/05/17 that showed chronic lacunar infarcts Status: Chronic (6) Diabetes mellitus Assessment & Plan: * [id number]: 5.1 * Controlled * Accuchecks Q6H Status: Chronic (7) Hypertension Assessment & Plan: * Lopressor 50mg PO BID * Crestor 2.5mg POqHS * Cozaar 25mg PO daily Status: Chronic (8) Hx Coronary artery disease/CABG Status: Chronic * Lopressor 50mg PO BID * Crestor 2.5mg POqHS * Cozaar 25mg PO daily (9) Severe systolic congestive heart failure Assessment & Plan: * Lopressor, Cozaar * Lasix 20 mg IV Q12H * On last admission recommends for outpatient AICD by Dr Rowan Status: Chronic (10) Atelectasis Assessment & Plan: * CT Chest (08/02/17): small right pleural effusion and right lower lobe subsegmental atelectasis. Opacity seen at right lung base on earlier chest radiograph of the same date was likely artifactual due to overlying medical equipment Status: Acute (11) Paroxysmal Atrial Fibrillation Assessment & Plan: * Lopressor 5mg IVPQ6H * Lopressor 50mg PO BID * Per cardiology, hold chemical anticoagulation, patient has history of recurrent GI bleed, awaiting brain MRI, may or may not need ASTRID Status: Acute (12) Fungal Rash * Inner groin folds and back side * Lotrimin 1% cream (13) Prophylactic measure Assessment & Plan: * Heparin 5000 units [id number] * Protonix 40mg IVP Q12H * Bacid 1 cap PO BID * Tylenol 650 mg Q6H PRN Fever * Duoneb Q6H PRN * PT/OT eval * Wound care Harsh Stokes D.O. Objective - Vital Signs/Intake and Output Vital Signs (last 24 hours): Temp Pulse Resp BP Pulse Ox 98.4 F 72 15 132/78 100 08/07/17 04:00 08/07/17 07:00 08/07/17 07:00 08/07/17 09:54 08/07/17 07:00 Intake and Output: 08/07/17 08/07/17 06:59 18:59 Intake Total 710 20 Output Total 980 Balance -270 20 - Medications Medications: Current Medications Acetaminophen (Tylenol 650mg/20.3ml Solution Ud) 650 mg PO Q6H PRN PRN Reason: Temperature >100.4 Last Admin: 08/06/17 20:57 Dose: 650 mg Albuterol/Ipratropium (Duoneb 3 Mg/0.5 Mg (3 Ml) Ud) 3 ml INH RQ6 [facility] Last Admin: 08/07/17 14:19 Dose: 3 ml Clotrimazole (Lotrimin 1%) 1 gm TOP BID [facility] Last Admin: 08/07/17 10:42 Dose: 1 applic Dextrose (Dextrose 50% Inj) 0 ml IV STAT PRN; Protocol PRN Reason: Hypoglycemia Protocol Last Admin: 08/03/17 17:55 Dose: 50 ml Furosemide (Lasix) 20 mg IVP Q12 [facility] Last Admin: 08/07/17 09:54 Dose: 20 mg Heparin Sodium (Porcine) (Heparin) 5,000 units SC Q12 [facility] Last Admin: 08/07/17 09:58 Dose: 5,000 units Lacosamide 100 mg/ Sodium (Chloride) 110 mls @ 110 mls/hr IV Q12H [facility] Last Admin: 08/07/17 10:37 Dose: 110 mls/hr Gentamicin Sulfate 70 mg/ (Sodium Chloride) 101.75 mls @ 100 mls/hr IVPB Q24H [facility] Stop: 08/08/17 03:32 Last Admin: 08/07/17 02:48 Dose: Not Given Vancomycin HCl (Vancocin 750mg/Ns 150 Ml) 150 mls @ 100 mls/hr IVPB Q12H [facility] Last Admin: 08/07/17 00:02 Dose: 100 mls/hr Levetiracetam 1,000 mg/ Sodium (Chloride) 110 mls @ 420 mls/hr IVPB Q12H [facility] Lactobacillus Acidophilus (Bacid Acidophilus) 1 cap PO BID [facility] Last Admin: 08/07/17 09:57 Dose: 1 cap Losartan Potassium (Cozaar) 25 mg PO DAILY [facility] Last Admin: 08/07/17 09:55 Dose: 25 mg Metoprolol Tartrate (Lopressor) 50 mg PO BID [facility] Last Admin: 08/07/17 09:56 Dose: 50 mg Metoprolol Tartrate (Lopressor) 5 mg IVP Q6H [facility] Last Admin: 08/07/17 09:15 Dose: Not Given Pantoprazole Sodium (Protonix Inj) 40 mg IVP Q12 [facility] Last Admin: 08/07/17 09:56 Dose: 40 mg Rifampin (Rifampin Cap) 300 mg PO TID [facility] Last Admin: 08/07/17 09:57 Dose: 300 mg Rosuvastatin Calcium (Crestor) 40 mg PO HS [facility] Last Admin: 08/06/17 21:29 Dose: 40 mg Spironolactone (Aldactone) 25 mg PO BID [facility] Last Admin: 08/07/17 10:00 Dose: 25 mg - Labs Labs: 08/07/17 06:40 08/07/17 06:37 PT 14.6 SECONDS (9.7-12.2) H 08/01/17 19:55 INR 1.3 08/01/17 19:55 APTT 47 SECONDS (21-34) H 08/01/17 19:55
--- NOTE | 2017-08-07 15:08 | CP.CCUPN ---
<Scottie Nogueira R - Last Filed: 08/07/17 17:13> CCU Subjective - Physician Review Subjective (Free Text): Patient seen and examined. ROS unobtainable due to intubation. Saturating well on nasal cannula. NG tube in place. Tachycardic, rhythm on monitor is sinus tach. Facial tick still present. Had lengthy family discussion today with son and along with neurologist. CCU Objective - Vital Signs / Intake & Output Intake and Output (Last 8hrs): Intake & Output 08/07/17 08/07/17 08/07/17 06:59 14:59 22:59 Intake Total 370 20 Output Total 680 Balance -310 20 Weight 139 lb 5.314 oz Intake: Intake, IV Amount 150 R PICC line 150 Tube Feeding 160 20 Other 60 Output: Urine 680 Urethral (Castañeda) 680 - Physical Exam Head: Positive for: Atraumatic, Normocephalic Mouth: Positive for: Moist Mucous Membranes Neck: Positive for: Normal Range of Motion Respiratory/Chest: Positive for: Clear to Auscultation, Good Air Exchange Cardiovascular: Positive for: Normal S1, S2 Abdomen: Positive for: Normal Bowel Sounds. Negative for: Tenderness, Distention Upper Extremity: Positive for: Normal Inspection Lower Extremity: Positive for: Normal Inspection, Other (left knee sutures intact w/ knee swollen) Psychiatric: Negative for: Alert, Oriented x 3 - Medications Active Medications: Active Medications Generic Name Dose Route Start Last Admin Trade Name Freq PRN Reason Stop Dose Admin Acetaminophen 650 mg 08/05/17 10:23 08/06/17 20:57 Tylenol 650mg/20.3ml Solution Ud PO 650 mg Q6H PRN Administration Temperature >100.4 Albuterol/Ipratropium 3 ml 08/02/17 08:00 08/07/17 14:19 Duoneb 3 Mg/0.5 Mg (3 Ml) Ud INH 3 ml RQ6 KODAK Administration Clotrimazole 1 gm 08/04/17 10:00 08/07/17 10:42 Lotrimin 1% TOP 1 applic BID KODAK Administration Dextrose 0 ml 08/03/17 17:06 08/03/17 17:55 Dextrose 50% Inj IV 50 ml STAT PRN Administration Hypoglycemia Protocol Protocol Furosemide 20 mg 08/05/17 22:00 08/07/17 09:54 Lasix IVP 20 mg Q12 KODAK Administration Heparin Sodium (Porcine) 5,000 units 08/05/17 22:00 08/07/17 09:58 Heparin SC 5,000 units Q12 KODAK Administration Lacosamide 100 mg/ Sodium 110 mls @ 110 mls/hr 08/03/17 22:00 08/07/17 10:37 Chloride IV 110 mls/hr Q12H KODAK Administration Gentamicin Sulfate 70 mg/ 101.75 mls @ 100 mls/hr 08/04/17 02:30 08/07/17 02: 48 Sodium Chloride IVPB 08/08/17 03:32 Not Given Q24H KODAK Vancomycin HCl 150 mls @ 100 mls/hr 08/06/17 13:00 08/07/17 00:02 Vancocin 750mg/Ns 150 Ml IVPB 100 mls/hr Q12H KODAK Administration Levetiracetam 1,000 mg/ Sodium 110 mls @ 420 mls/hr 08/07/17 14:00 Chloride IVPB Q12H KODAK Lactobacillus Acidophilus 1 cap 08/02/17 10:00 08/07/17 09:57 Bacid Acidophilus PO 1 cap BID [facility] Administration Losartan Potassium 25 mg 08/02/17 10:00 08/07/17 09:55 Cozaar PO 25 mg DAILY [facility] Administration Metoprolol Tartrate 50 mg 08/02/17 10:00 08/07/17 09:56 Lopressor PO 50 mg BID [facility] Administration Metoprolol Tartrate 5 mg 08/03/17 09:15 08/07/17 09:15 Lopressor IVP Not Given Q6H [facility] Pantoprazole Sodium 40 mg 08/03/17 10:00 08/07/17 09:56 Protonix Inj IVP 40 mg Q12 [facility] Administration Rifampin 300 mg 08/02/17 10:00 08/07/17 09:57 Rifampin Cap PO 300 mg TID [facility] Administration Rosuvastatin Calcium 40 mg 08/03/17 08:34 08/06/17 21:29 Crestor PO 40 mg HS [facility] Administration Spironolactone 25 mg 08/07/17 10:00 08/07/17 10:00 Aldactone PO 25 mg BID KODAK Administration - Patient Studies Lab Studies: Microbiology Studies 08/05/17 Unknown Urine Culture - Final Urine,[place] Yeast Species 08/04/17 02:20 Blood Culture - Preliminary Blood-Thru Central Line NO GROWTH AFTER 3 DAYS 08/04/17 02:20 Blood Culture - Preliminary Blood-Thru Central Line NO GROWTH AFTER 3 DAYS Lab Studies 08/07/17 08/07/17 08/07/17 Range/Units 12:49 11:31 06:40 WBC 4.8 (4.8-10.8) K/uL RBC 2.67 L (3.80-5.20) Mil/uL Hgb 8.0 L (11.0-16.0) g/dL Hct 23.3 L (34.0-47.0) % MCV 87.6 (81.0-99.0) fL MCH 29.8 (27.0-31.0) pg MCHC 34.1 (33.0-37.0) g/dL RDW 17.4 H (11.5-14.5) % Plt Count 202 (130-400) K/uL MPV 8.5 (7.2-11.7) fL Neut % (Auto) 72.0 (50.0-75.0) % Lymph % (Auto) 10.0 L (20.0-40.0) % [place] % (Auto) 12.0 H (0.0-10.0) % Eos % (Auto) 5.0 H (0.0-4.0) % Baso % (Auto) 1.0 (0.0-2.0) % Neut # (Auto) 3.5 (1.8-7.0) K/uL Lymph # (Auto) 0.5 L (1.0-4.3) K/uL [place] # (Auto) 0.6 (0.0-0.8) K/uL Eos # (Auto) 0.2 (0.0-0.7) K/uL Baso # (Auto) 0.0 (0.0-0.2) K/uL Sodium (132-148) mmol/L Potassium (3.6-5.2) mmol/L Chloride (98-107) mmol/L Carbon Dioxide (22-30) mmol/L Anion Gap (10-20) BUN (7-17) mg/dL Creatinine (0.7-1.2) mg/dL Est GFR ( Amer) Est GFR (Non-Af Amer) POC Glucose (mg/dL) 89 (65-110) mg/dL Random Glucose (65-105) mg/dL Calcium (8.6-10.4) mg/dl Phosphorus (2.5-4.5) mg/dL Magnesium (1.6-2.3) mg/dL Total Bilirubin (0.2-1.3) mg/dL AST (14-36) U/L ALT (9-52) U/L Alkaline Phosphatase (38-126) U/L Ammonia (9-33) umol/L Total Protein (6.3-8.3) g/dL Albumin (3.5-5.0) g/dL Globulin (2.2-3.9) gm/dL Albumin/Globulin Ratio (1.0-2.1) Gentamicin Trough (0.0-0.9) ug/mL Random Gentamicin 0.8 ug/mL 08/07/17 08/07/17 08/07/17 Range/Units 06:37 06:37 05:38 WBC (4.8-10.8) K/uL RBC (3.80-5.20) Mil/uL Hgb (11.0-16.0) g/dL Hct (34.0-47.0) % MCV (81.0-99.0) fL MCH (27.0-31.0) pg MCHC (33.0-37.0) g/dL RDW (11.5-14.5) % Plt Count (130-400) K/uL MPV (7.2-11.7) fL Neut % (Auto) (50.0-75.0) % Lymph % (Auto) (20.0-40.0) % [place] % (Auto) (0.0-10.0) % Eos % (Auto) (0.0-4.0) % Baso % (Auto) (0.0-2.0) % Neut # (Auto) (1.8-7.0) K/uL Lymph # (Auto) (1.0-4.3) K/uL [place] # (Auto) (0.0-0.8) K/uL Eos # (Auto) (0.0-0.7) K/uL Baso # (Auto) (0.0-0.2) K/uL Sodium 130 L (132-148) mmol/L Potassium 3.1 L (3.6-5.2) mmol/L Chloride 91 L (98-107) mmol/L Carbon Dioxide 33 H (22-30) mmol/L Anion Gap 9 L (10-20) BUN 15 (7-17) mg/dL Creatinine 0.9 (0.7-1.2) mg/dL Est GFR ( Amer) > 60 Est GFR (Non-Af Amer) > 60 POC Glucose (mg/dL) 114 H (65-110) mg/dL Random Glucose 98 (65-105) mg/dL Calcium 8.2 L (8.6-10.4) mg/dl Phosphorus 2.8 (2.5-4.5) mg/dL Magnesium 1.7 (1.6-2.3) mg/dL Total Bilirubin 0.3 (0.2-1.3) mg/dL AST 46 H (14-36) U/L ALT 8 L D (9-52) U/L Alkaline Phosphatase 101 (38-126) U/L Ammonia 17 (9-33) umol/L Total Protein 7.1 (6.3-8.3) g/dL Albumin 2.5 L (3.5-5.0) g/dL Globulin 4.6 H (2.2-3.9) gm/dL Albumin/Globulin Ratio 0.5 L (1.0-2.1) Gentamicin Trough (0.0-0.9) ug/mL Random Gentamicin ug/mL 08/07/17 08/07/17 08/06/17 Range/Units 01:51 00:07 17:30 WBC (4.8-10.8) K/uL RBC (3.80-5.20) Mil/uL Hgb (11.0-16.0) g/dL Hct (34.0-47.0) % MCV (81.0-99.0) fL MCH (27.0-31.0) pg MCHC (33.0-37.0) g/dL RDW (11.5-14.5) % Plt Count (130-400) K/uL MPV (7.2-11.7) fL Neut % (Auto) (50.0-75.0) % Lymph % (Auto) (20.0-40.0) % [place] % (Auto) (0.0-10.0) % Eos % (Auto) (0.0-4.0) % Baso % (Auto) (0.0-2.0) % Neut # (Auto) (1.8-7.0) K/uL Lymph # (Auto) (1.0-4.3) K/uL [place] # (Auto) (0.0-0.8) K/uL Eos # (Auto) (0.0-0.7) K/uL Baso # (Auto) (0.0-0.2) K/uL Sodium (132-148) mmol/L Potassium (3.6-5.2) mmol/L Chloride (98-107) mmol/L Carbon Dioxide (22-30) mmol/L Anion Gap (10-20) BUN (7-17) mg/dL Creatinine (0.7-1.2) mg/dL Est GFR ( Amer) Est GFR (Non-Af Amer) POC Glucose (mg/dL) 78 82 (65-110) mg/dL Random Glucose (65-105) mg/dL Calcium (8.6-10.4) mg/dl Phosphorus (2.5-4.5) mg/dL Magnesium (1.6-2.3) mg/dL Total Bilirubin (0.2-1.3) mg/dL AST (14-36) U/L ALT (9-52) U/L Alkaline Phosphatase (38-126) U/L Ammonia (9-33) umol/L Total Protein (6.3-8.3) g/dL Albumin (3.5-5.0) g/dL Globulin (2.2-3.9) gm/dL Albumin/Globulin Ratio (1.0-2.1) Gentamicin Trough 1.2 H (0.0-0.9) ug/mL Random Gentamicin ug/mL Laboratory Results - last 24 hr 08/06/17 08/07/17 08/07/17 17:30 00:07 01:51 WBC RBC Hgb Hct MCV MCH MCHC RDW Plt Count MPV Neut % (Auto) Lymph % (Auto) [place] % (Auto) Eos % (Auto) Baso % (Auto) Neut # (Auto) Lymph # (Auto) [place] # (Auto) Eos # (Auto) Baso # (Auto) Sodium Potassium Chloride Carbon Dioxide Anion Gap BUN Creatinine Est GFR ( Amer) Est GFR (Non-Af Amer) POC Glucose (mg/dL) 82 78 Random Glucose Calcium Phosphorus Magnesium Total Bilirubin AST ALT Alkaline Phosphatase Ammonia Total Protein Albumin Globulin Albumin/Globulin Ratio Gentamicin Trough 1.2 H Random Gentamicin 08/07/17 08/07/17 08/07/17 05:38 06:37 06:37 WBC RBC Hgb Hct MCV MCH MCHC RDW Plt Count MPV Neut % (Auto) Lymph % (Auto) [place] % (Auto) Eos % (Auto) Baso % (Auto) Neut # (Auto) Lymph # (Auto) [place] # (Auto) Eos # (Auto) Baso # (Auto) Sodium 130 L Potassium 3.1 L Chloride 91 L Carbon Dioxide 33 H Anion Gap 9 L BUN 15 Creatinine 0.9 Est GFR ( Amer) > 60 Est GFR (Non-Af Amer) > 60 POC Glucose (mg/dL) 114 H Random Glucose 98 Calcium 8.2 L Phosphorus 2.8 Magnesium 1.7 Total Bilirubin 0.3 AST 46 H ALT 8 L D Alkaline Phosphatase 101 Ammonia 17 Total Protein 7.1 Albumin 2.5 L Globulin 4.6 H Albumin/Globulin Ratio 0.5 L Gentamicin Trough Random Gentamicin 08/07/17 08/07/17 08/07/17 06:40 11:31 12:49 WBC 4.8 RBC 2.67 L Hgb 8.0 L Hct 23.3 L MCV 87.6 MCH 29.8 MCHC 34.1 RDW 17.4 H Plt Count 202 MPV 8.5 Neut % (Auto) 72.0 Lymph % (Auto) 10.0 L [place] % (Auto) 12.0 H Eos % (Auto) 5.0 H Baso % (Auto) 1.0 Neut # (Auto) 3.5 Lymph # (Auto) 0.5 L [place] # (Auto) 0.6 Eos # (Auto) 0.2 Baso # (Auto) 0.0 Sodium Potassium Chloride Carbon Dioxide Anion Gap BUN Creatinine Est GFR ( Amer) Est GFR (Non-Af Amer) POC Glucose (mg/dL) 89 Random Glucose Calcium Phosphorus Magnesium Total Bilirubin AST ALT Alkaline Phosphatase Ammonia Total Protein Albumin Globulin Albumin/Globulin Ratio Gentamicin Trough Random Gentamicin 0.8 Fingerstick Blood Sugar Results: 114 Review of Systems - Review of Systems Systems not reviewed;Unavailable: Altered Mental Status Assessment/Plan - Assessment and Plan (Free Text) Assessment: Pt is a 72F with new onset seizures. Neuro: New onset seizure (etiology unknown), hx of dementia Neurologist Dr. Cornejo/Josh on board * Pending EEG result. Recommend to repeat CTA of the head to evaluate the posterior cerebral artery. Vimpat 200mg/20ml IV BID Keppra 1000mg IV BID Imaging: CT head negative for acute changes CTA Head/Neck shows no flow limiting cervical carotid stenosis or vessel occlusion, also patent vertebral arteries brain MRI shows no acute intracranial hemorrhage. Moderate chronic white matter the ischemic changes with scattered small basal nuclei, brainstem and left cerebellar lacunar type infarcts. Moderate to fairly significant generalized volume loss. MRA head showed patent anterior circulation. Right distal posterior cerebral artery is not well visualized which may be artifactual however a occlusion cannot be excluded. Patent left posterior cerebral artery, vertebral and basilar arteries. MRA neck showed no evidence of hemodynamically significant stenosis in the internal carotid arteries. Patent vertebral arteries. follow up EEG ID: [id number] Septic Arthirtis; s/p arthroscopic irrigation and debridement of left knee on 07/19/[address] Avina on board Ortho Dr Quintero on board * Will evaluate patient and possibly remove sutures from I&D on 07/19/17 Gentamycin 70mg IV QD * Hold today's dose due to high genta trough. Will get random genta level. rifampin 300mg PO TID Hold vanco vanco trough 17.6 Tylenol for fever lactate NORMAL NEGATIVE for flu Blood culture NEGATIVE up to date Renal: Hyponatremia Veterinarian Dr Eddy on board Hyponatremia not improving with tolvaptan with urine osm still high; likely due to decreased tolvaptan levels while on rifampin; will continue with tolvaptan 30 mg daily Aldactone 12.5 mg PO BID Endo: SIADH (etiology unclear), DM Nephrology, Dr Moser on board Hyponatremia not improving with tolvaptan with urine osm still high; likely due to decreased tolvaptan levels while on rifampin; will continue with tolvaptan 30 mg daily Hypoglycemic protocol Cardio: Ischemic cardiomyopathy with low EF, HTN, paroxymal A-Fib, s/p CABG Probnp [id number] Cozaar 25mg PO QD cardizem 10mg IVP Lopressor 50mg PO BID Lasix 20mg IV BID Crestor 40mg PO HS CPK NORMAL Lipid Profile NORMAL ECHO bubble study - no ASD seen Pulm: hx of COPD extubated 08/03/17 duoneb INH QID ABG ordered Electrolytes: hypokalemia resolved, hypomagnesemia, hyponatremia Replete MgSulfate to keep Mg above 2.[address] Eddy on board Hyponatremia not improving with tolvaptan with urine osm still high; likely due to decreased tolvaptan levels while on rifampin; will continue with tolvaptan 30 mg daily GI: no active issues NG tube feeds Ppx: Heparin 5,000 units protonix 40mg PO QD <Immanuel Alvarez - Last Filed: 08/07/17 18:07> CCU Objective - Vital Signs / Intake & Output Intake and Output (Last 8hrs): Intake & Output 08/07/17 08/07/17 08/07/17 06:59 14:59 22:59 Intake Total 370 20 Output Total 680 Balance -310 20 Weight 139 lb 5.314 oz Intake: Intake, IV Amount 150 R PICC line 150 Tube Feeding 160 20 Other 60 Output: Urine 680 Urethral ([place]) 680 - Medications Active Medications: Active Medications Generic Name Dose Route Start Last Admin Trade Name Freq PRN Reason Stop Dose Admin Acetaminophen 650 mg 08/05/17 10:23 08/06/17 20:57 Tylenol 650mg/20.3ml Solution Ud PO 650 mg Q6H PRN Administration Temperature >100.4 Albuterol/Ipratropium 3 ml 08/02/17 08:00 08/07/17 14:19 Duoneb 3 Mg/0.5 Mg (3 Ml) Ud INH 3 ml RQ6 KODAK Administration Clotrimazole 1 gm 08/04/17 10:00 08/07/17 10:42 Lotrimin 1% TOP 1 applic BID [facility]AK Administration Dextrose 0 ml 08/03/17 17:06 08/03/17 17:55 Dextrose 50% Inj IV 50 ml STAT PRN Administration Hypoglycemia Protocol Protocol Furosemide 20 mg 08/05/17 22:00 08/07/17 09:54 Lasix IVP 20 mg Q12 KODAK Administration Heparin Sodium (Porcine) 5,000 units 08/05/17 22:00 08/07/17 09:58 Heparin SC 5,000 units Q12 [facility] Administration Lacosamide 100 mg/ Sodium 110 mls @ 110 mls/hr 08/03/17 22:00 08/07/17 10:37 Chloride IV 110 mls/hr Q12H [facility] Administration Gentamicin Sulfate 70 mg/ 101.75 mls @ 100 mls/hr 08/04/17 02:30 08/07/17 02: 48 Sodium Chloride IVPB 08/08/17 03:32 Not Given Q24H KODAK Vancomycin HCl 150 mls @ 100 mls/hr 08/06/17 13:00 08/07/17 15:06 Vancocin 750mg/Ns 150 Ml IVPB 100 mls/hr Q12H [facility] Administration Levetiracetam 1,000 mg/ Sodium 110 mls @ 420 mls/hr 08/07/17 14:00 08/07/17 15:06 Chloride IVPB 420 mls/hr Q12H [facility] Administration Lactobacillus Acidophilus 1 cap 08/02/17 10:00 08/07/17 17:56 Bacid Acidophilus PO 1 cap BID [facility] Administration Losartan Potassium 25 mg 08/02/17 10:00 08/07/17 09:55 Cozaar PO 25 mg DAILY [facility] Administration Metoprolol Tartrate 50 mg 08/02/17 10:00 08/07/17 17:57 Lopressor PO 50 mg BID [facility] Administration Metoprolol Tartrate 5 mg 08/03/17 09:15 08/07/17 15:15 Lopressor IVP Not Given Q6H KODAK Pantoprazole Sodium 40 mg 08/03/17 10:00 08/07/17 09:56 Protonix Inj IVP 40 mg Q12 KODAK Administration Rifampin 300 mg 08/02/17 10:00 08/07/17 17:56 Rifampin Cap PO 300 mg TID K[facility]AK Administration Rosuvastatin Calcium 40 mg 08/03/17 08:34 08/06/17 21:29 Crestor PO 40 mg HS [facility] Administration Spironolactone 25 mg 08/07/17 10:00 08/07/17 17:56 Aldactone PO 25 mg BID KODAK Administration - Patient Studies Lab Studies: Microbiology Studies 08/05/17 Unknown Urine Culture - Final Urine,[place] Yeast Species 08/04/17 02:20 Blood Culture - Preliminary Blood-Thru Central Line NO GROWTH AFTER 3 DAYS 08/04/17 02:20 Blood Culture - Preliminary Blood-Thru Central Line NO GROWTH AFTER 3 DAYS Lab Studies 08/07/17 08/07/17 08/07/17 Range/Units 12:49 11:31 06:40 WBC 4.8 (4.8-10.8) K/uL RBC 2.67 L (3.80-5.20) Mil/uL Hgb 8.0 L (11.0-16.0) g/dL Hct 23.3 L (34.0-47.0) % MCV 87.6 (81.0-99.0) fL MCH 29.8 (27.0-31.0) pg MCHC 34.1 (33.0-37.0) g/dL RDW 17.4 H (11.5-14.5) % Plt Count 202 (130-400) K/uL MPV 8.5 (7.2-11.7) fL Neut % (Auto) 72.0 (50.0-75.0) % Lymph % (Auto) 10.0 L (20.0-40.0) % [place] % (Auto) 12.0 H (0.0-10.0) % Eos % (Auto) 5.0 H (0.0-4.0) % Baso % (Auto) 1.0 (0.0-2.0) % Neut # (Auto) 3.5 (1.8-7.0) K/uL Lymph # (Auto) 0.5 L (1.0-4.3) K/uL [place] # (Auto) 0.6 (0.0-0.8) K/uL Eos # (Auto) 0.2 (0.0-0.7) K/uL Baso # (Auto) 0.0 (0.0-0.2) K/uL Sodium (132-148) mmol/L Potassium (3.6-5.2) mmol/L Chloride (98-107) mmol/L Carbon Dioxide (22-30) mmol/L Anion Gap (10-20) BUN (7-17) mg/dL Creatinine (0.7-1.2) mg/dL Est GFR ( Amer) Est GFR (Non-Af Amer) POC Glucose (mg/dL) 89 (65-110) mg/dL Random Glucose (65-105) mg/dL Calcium (8.6-10.4) mg/dl Phosphorus (2.5-4.5) mg/dL Magnesium (1.6-2.3) mg/dL Total Bilirubin (0.2-1.3) mg/dL AST (14-36) U/L ALT (9-52) U/L Alkaline Phosphatase (38-126) U/L Ammonia (9-33) umol/L Total Protein (6.3-8.3) g/dL Albumin (3.5-5.0) g/dL Globulin (2.2-3.9) gm/dL Albumin/Globulin Ratio (1.0-2.1) Gentamicin Trough (0.0-0.9) ug/mL Random Gentamicin 0.8 ug/mL 08/07/17 08/07/17 08/07/17 Range/Units 06:37 06:37 05:38 WBC (4.8-10.8) K/uL RBC (3.80-5.20) Mil/uL Hgb (11.0-16.0) g/dL Hct (34.0-47.0) % MCV (81.0-99.0) fL MCH (27.0-31.0) pg MCHC (33.0-37.0) g/dL RDW (11.5-14.5) % Plt Count (130-400) K/uL MPV (7.2-11.7) fL Neut % (Auto) (50.0-75.0) % Lymph % (Auto) (20.0-40.0) % [place] % (Auto) (0.0-10.0) % Eos % (Auto) (0.0-4.0) % Baso % (Auto) (0.0-2.0) % Neut # (Auto) (1.8-7.0) K/uL Lymph # (Auto) (1.0-4.3) K/uL [place] # (Auto) (0.0-0.8) K/uL Eos # (Auto) (0.0-0.7) K/uL Baso # (Auto) (0.0-0.2) K/uL Sodium 130 L (132-148) mmol/L Potassium 3.1 L (3.6-5.2) mmol/L Chloride 91 L (98-107) mmol/L Carbon Dioxide 33 H (22-30) mmol/L Anion Gap 9 L (10-20) BUN 15 (7-17) mg/dL Creatinine 0.9 (0.7-1.2) mg/dL Est GFR ( Amer) > 60 Est GFR (Non-Af Amer) > 60 POC Glucose (mg/dL) 114 H (65-110) mg/dL Random Glucose 98 (65-105) mg/dL Calcium 8.2 L (8.6-10.4) mg/dl Phosphorus 2.8 (2.5-4.5) mg/dL Magnesium 1.7 (1.6-2.3) mg/dL Total Bilirubin 0.3 (0.2-1.3) mg/dL AST 46 H (14-36) U/L ALT 8 L D (9-52) U/L Alkaline Phosphatase 101 (38-126) U/L Ammonia 17 (9-33) umol/L Total Protein 7.1 (6.3-8.3) g/dL Albumin 2.5 L (3.5-5.0) g/dL Globulin 4.6 H (2.2-3.9) gm/dL Albumin/Globulin Ratio 0.5 L (1.0-2.1) Gentamicin Trough (0.0-0.9) ug/mL Random Gentamicin ug/mL 08/07/17 08/07/17 Range/Units 01:51 00:07 WBC (4.8-10.8) K/uL RBC (3.80-5.20) Mil/uL Hgb (11.0-16.0) g/dL Hct (34.0-47.0) % MCV (81.0-99.0) fL MCH (27.0-31.0) pg MCHC (33.0-37.0) g/dL RDW (11.5-14.5) % Plt Count (130-400) K/uL MPV (7.2-11.7) fL Neut % (Auto) (50.0-75.0) % Lymph % (Auto) (20.0-40.0) % [place] % (Auto) (0.0-10.0) % Eos % (Auto) (0.0-4.0) % Baso % (Auto) (0.0-2.0) % Neut # (Auto) (1.8-7.0) K/uL Lymph # (Auto) (1.0-4.3) K/uL [place] # (Auto) (0.0-0.8) K/uL Eos # (Auto) (0.0-0.7) K/uL Baso # (Auto) (0.0-0.2) K/uL Sodium (132-148) mmol/L Potassium (3.6-5.2) mmol/L Chloride (98-107) mmol/L Carbon Dioxide (22-30) mmol/L Anion Gap (10-20) BUN (7-17) mg/dL Creatinine (0.7-1.2) mg/dL Est GFR ( Amer) Est GFR (Non-Af Amer) POC Glucose (mg/dL) 78 (65-110) mg/dL Random Glucose (65-105) mg/dL Calcium (8.6-10.4) mg/dl Phosphorus (2.5-4.5) mg/dL Magnesium (1.6-2.3) mg/dL Total Bilirubin (0.2-1.3) mg/dL AST (14-36) U/L ALT (9-52) U/L Alkaline Phosphatase (38-126) U/L Ammonia (9-33) umol/L Total Protein (6.3-8.3) g/dL Albumin (3.5-5.0) g/dL Globulin (2.2-3.9) gm/dL Albumin/Globulin Ratio (1.0-2.1) Gentamicin Trough 1.2 H (0.0-0.9) ug/mL Random Gentamicin ug/mL Laboratory Results - last 24 hr 08/07/17 08/07/17 08/07/17 00:07 01:51 05:38 WBC RBC Hgb Hct MCV MCH MCHC RDW Plt Count MPV Neut % (Auto) Lymph % (Auto) [place] % (Auto) Eos % (Auto) Baso % (Auto) Neut # (Auto) Lymph # (Auto) [place] # (Auto) Eos # (Auto) Baso # (Auto) Sodium Potassium Chloride Carbon Dioxide Anion Gap BUN Creatinine Est GFR ( Amer) Est GFR (Non-Af Amer) POC Glucose (mg/dL) 78 114 H Random Glucose Calcium Phosphorus Magnesium Total Bilirubin AST ALT Alkaline Phosphatase Ammonia Total Protein Albumin Globulin Albumin/Globulin Ratio Gentamicin Trough 1.2 H Random Gentamicin 08/07/17 08/07/17 08/07/17 06:37 06:37 06:40 WBC 4.8 RBC 2.67 L Hgb 8.0 L Hct 23.3 L MCV 87.6 MCH 29.8 MCHC 34.1 RDW 17.4 H Plt Count 202 MPV 8.5 Neut % (Auto) 72.0 Lymph % (Auto) 10.0 L [place] % (Auto) 12.0 H Eos % (Auto) 5.0 H Baso % (Auto) 1.0 Neut # (Auto) 3.5 Lymph # (Auto) 0.5 L [place] # (Auto) 0.6 Eos # (Auto) 0.2 Baso # (Auto) 0.0 Sodium 130 L Potassium 3.1 L Chloride 91 L Carbon Dioxide 33 H Anion Gap 9 L BUN 15 Creatinine 0.9 Est GFR ( Amer) > 60 Est GFR (Non-Af Amer) > 60 POC Glucose (mg/dL) Random Glucose 98 Calcium 8.2 L Phosphorus 2.8 Magnesium 1.7 Total Bilirubin 0.3 AST 46 H ALT 8 L D Alkaline Phosphatase 101 Ammonia 17 Total Protein 7.1 Albumin 2.5 L Globulin 4.6 H Albumin/Globulin Ratio 0.5 L Gentamicin Trough Random Gentamicin 08/07/17 08/07/17 11:31 12:49 WBC RBC Hgb Hct MCV MCH MCHC RDW Plt Count MPV Neut % (Auto) Lymph % (Auto) [place] % (Auto) Eos % (Auto) Baso % (Auto) Neut # (Auto) Lymph # (Auto) [place] # (Auto) Eos # (Auto) Baso # (Auto) Sodium Potassium Chloride Carbon Dioxide Anion Gap BUN Creatinine Est GFR ( Amer) Est GFR (Non-Af Amer) POC Glucose (mg/dL) 89 Random Glucose Calcium Phosphorus Magnesium Total Bilirubin AST ALT Alkaline Phosphatase Ammonia Total Protein Albumin Globulin Albumin/Globulin Ratio Gentamicin Trough Random Gentamicin 0.8 Attending/Attestation - Attestation I have personally seen and examined this patient.: Yes I have fully participated in the care of the patient.: Yes I have reviewed all pertinent clinical information: Yes Notes (Text): 08/07/17 18:03 patient seen and examined in the intensive care unit. Case discussed with house staff in the morning rounds. Patient seen by neurology for facial twitching and seizures Plan is for repeat EEG in the morning Continue present treatment Case discussed with at length Continue antibiotics for septic arthritis ischemic cardiomyopathy with low ejection fraction continue Lasix, Lopressor Hyponatremia much improved
--- NOTE | 2017-08-07 15:12 | CP.PCM.CON ---
History of Present Illness - History of Present Illness History of Present Illness: Orthopedic consultation Dr. Mcmillan 72F with left knee septic arthritis and osteomyelitis 3 weeks s/p arthroscopic I &D, readmitted for new onset seizures. Patient is responding somewhat to pain, patient awake but not alert, does not answer questions. History is from chart. Review of Systems - Review of Systems Systems not reviewed;Unavailable: Altered Mental Status Past Patient History - Infectious Disease Hx of Infectious Diseases: None - Past Medical History & Family History Past Medical History?: Yes - Past Social History Smoking Status: Never Smoked - CARDIAC Hx Cardiac Disorders: Yes (CAD; CABG; endocarditis) Hx Congestive Heart Failure: Yes Hx Hypertension: Yes - PULMONARY Hx Chronic Obstructive Pulmonary Disease (COPD): Yes - NEUROLOGICAL Hx Dementia: Yes Hx Seizures: No - HEENT Hx HEENT Problems: No - RENAL Hx Chronic Kidney Disease: No - ENDOCRINE/METABOLIC Hx Diabetes Mellitus Type 2: Yes - HEMATOLOGICAL/ONCOLOGICAL Hx Anemia: Yes Hx Human Immunodeficiency Virus (HIV): No - INTEGUMENTARY Hx Dermatological Problems: No - MUSCULOSKELETAL/RHEUMATOLOGICAL Hx Arthritis: Yes (L KNEE SEPTIC ARTHRITIS) Hx Rheumatoid Arthritis: Yes - GASTROINTESTINAL Hx Gastrointestinal Disorders: Yes Hx Ulcer: Yes Other/Comment: appendectomy history of endoscopies. ventral hernia - GENITOURINARY/GYNECOLOGICAL Hx Sexually Transmitted Disorders: No - PSYCHIATRIC Hx Substance Use: No - SURGICAL HISTORY Hx Appendectomy: Yes Hx Coronary Artery Bypass Graft: Yes Hx Coronary Stent: Yes - ANESTHESIA Hx Anesthesia: Yes Hx Anesthesia Reactions: No Hx Malignant Hyperthermia: No Meds Allergies/Adverse Reactions: Allergies Allergy/AdvReac Type Severity Reaction Status Date / Time No Known Allergies Allergy Verified 08/01/17 19:02 - Medications Medications: Current Medications Acetaminophen (Tylenol 650mg/20.3ml Solution Ud) 650 mg PO Q6H PRN PRN Reason: Temperature >100.4 Last Admin: 08/06/17 20:57 Dose: 650 mg Albuterol/Ipratropium (Duoneb 3 Mg/0.5 Mg (3 Ml) Ud) 3 ml INH RQ6 [facility] Last Admin: 08/07/17 14:19 Dose: 3 ml Clotrimazole (Lotrimin 1%) 1 gm TOP BID [facility] Last Admin: 08/07/17 10:42 Dose: 1 applic Dextrose (Dextrose 50% Inj) 0 ml IV STAT PRN; Protocol PRN Reason: Hypoglycemia Protocol Last Admin: 08/03/17 17:55 Dose: 50 ml Furosemide (Lasix) 20 mg IVP Q12 [facility] Last Admin: 08/07/17 09:54 Dose: 20 mg Heparin Sodium (Porcine) (Heparin) 5,000 units SC Q12 [facility] Last Admin: 08/07/17 09:58 Dose: 5,000 units Lacosamide 100 mg/ Sodium (Chloride) 110 mls @ 110 mls/hr IV Q12H [facility] Last Admin: 08/07/17 10:37 Dose: 110 mls/hr Gentamicin Sulfate 70 mg/ (Sodium Chloride) 101.75 mls @ 100 mls/hr IVPB Q24H [facility] Stop: 08/08/17 03:32 Last Admin: 08/07/17 02:48 Dose: Not Given Vancomycin HCl (Vancocin 750mg/Ns 150 Ml) 150 mls @ 100 mls/hr IVPB Q12H [facility] Last Admin: 08/07/17 00:02 Dose: 100 mls/hr Levetiracetam 1,000 mg/ Sodium (Chloride) 110 mls @ 420 mls/hr IVPB Q12H [facility] Lactobacillus Acidophilus (Bacid Acidophilus) 1 cap PO BID [facility] Last Admin: 08/07/17 09:57 Dose: 1 cap Losartan Potassium (Cozaar) 25 mg PO DAILY [facility] Last Admin: 08/07/17 09:55 Dose: 25 mg Metoprolol Tartrate (Lopressor) 50 mg PO BID [facility] Last Admin: 08/07/17 09:56 Dose: 50 mg Metoprolol Tartrate (Lopressor) 5 mg IVP Q6H [facility] Last Admin: 08/07/17 09:15 Dose: Not Given Pantoprazole Sodium (Protonix Inj) 40 mg IVP Q12 [facility] Last Admin: 08/07/17 09:56 Dose: 40 mg Rifampin (Rifampin Cap) 300 mg PO TID [facility] Last Admin: 08/07/17 09:57 Dose: 300 mg Rosuvastatin Calcium (Crestor) 40 mg PO HS [facility] Last Admin: 08/06/17 21:29 Dose: 40 mg Spironolactone (Aldactone) 25 mg PO BID [facility] Last Admin: 08/07/17 10:00 Dose: 25 mg Physical Exam - Back Exam Additional comments: Left knee: incisions well healed, sutures removed. Moderate effusion, not increased from last exam. Mildly warm. No erythema. Able to passively range knee to 45 degrees and then patient appears to be in pain. calves soft no obvious discomfort Results - Vital Signs Recent Vital Signs: Last Vital Signs Temp 98.4 F 08/07/17 04:00 Pulse 72 08/07/17 07:00 Resp 15 08/07/17 07:00 BP 132/78 08/07/17 09:54 Pulse Ox 100 08/07/17 07:00 - Labs Result Diagrams: 08/07/17 06:40 08/07/17 06:37 Labs: Laboratory Results - last 24 hr 08/06/17 08/07/17 08/07/17 17:30 00:07 01:51 WBC RBC Hgb Hct MCV MCH MCHC RDW Plt Count MPV Neut % (Auto) Lymph % (Auto) Simpson % (Auto) Eos % (Auto) Baso % (Auto) Neut # (Auto) Lymph # (Auto) Simpson # (Auto) Eos # (Auto) Baso # (Auto) Sodium Potassium Chloride Carbon Dioxide Anion Gap BUN Creatinine Est GFR ( Amer) Est GFR (Non-Af Amer) POC Glucose (mg/dL) 82 78 Random Glucose Calcium Phosphorus Magnesium Total Bilirubin AST ALT Alkaline Phosphatase Ammonia Total Protein Albumin Globulin Albumin/Globulin Ratio Gentamicin Trough 1.2 H Random Gentamicin 08/07/17 08/07/17 08/07/17 05:38 06:37 06:37 WBC RBC Hgb Hct MCV MCH MCHC RDW Plt Count MPV Neut % (Auto) Lymph % (Auto) Simpson % (Auto) Eos % (Auto) Baso % (Auto) Neut # (Auto) Lymph # (Auto) Simpson # (Auto) Eos # (Auto) Baso # (Auto) Sodium 130 L Potassium 3.1 L Chloride 91 L Carbon Dioxide 33 H Anion Gap 9 L BUN 15 Creatinine 0.9 Est GFR ( Amer) > 60 Est GFR (Non-Af Amer) > 60 POC Glucose (mg/dL) 114 H Random Glucose 98 Calcium 8.2 L Phosphorus 2.8 Magnesium 1.7 Total Bilirubin 0.3 AST 46 H ALT 8 L D Alkaline Phosphatase 101 Ammonia 17 Total Protein 7.1 Albumin 2.5 L Globulin 4.6 H Albumin/Globulin Ratio 0.5 L Gentamicin Trough Random Gentamicin 08/07/17 08/07/17 08/07/17 06:40 11:31 12:49 WBC 4.8 RBC 2.67 L Hgb 8.0 L Hct 23.3 L MCV 87.6 MCH 29.8 MCHC 34.1 RDW 17.4 H Plt Count 202 MPV 8.5 Neut % (Auto) 72.0 Lymph % (Auto) 10.0 L Simpson % (Auto) 12.0 H Eos % (Auto) 5.0 H Baso % (Auto) 1.0 Neut # (Auto) 3.5 Lymph # (Auto) 0.5 L Simpson # (Auto) 0.6 Eos # (Auto) 0.2 Baso # (Auto) 0.0 Sodium Potassium Chloride Carbon Dioxide Anion Gap BUN Creatinine Est GFR ( Amer) Est GFR (Non-Af Amer) POC Glucose (mg/dL) 89 Random Glucose Calcium Phosphorus Magnesium Total Bilirubin AST ALT Alkaline Phosphatase Ammonia Total Protein Albumin Globulin Albumin/Globulin Ratio Gentamicin Trough Random Gentamicin 0.8 Assessment & Plan - Assessment and Plan (Free Text) Assessment: 3 weeks s/p I&D for left knee septic arthritis, with osteomyelitis -no clinical evidence of recurrence or need for further I&D -sutures removed -continue IV abx per ID, needs total course of 6 weeks due to osteo and septic arthritis VTE proph PT when appropriate d/w Dr. Mcmillan, agrees with above
--- NOTE | 2017-08-07 21:43 | CP.PCM.PN ---
Subjective - Date & Time of Evaluation Date of Evaluation: 08/07/17 Time of Evaluation: 14:00 - Subjective Subjective: No change in mental status per staff; not following commands; Objective - Vital Signs/Intake and Output Vital Signs (last 24 hours): Temp Pulse Resp BP Pulse Ox 99.7 F H 69 20 116/57 L 100 08/07/17 16:00 08/07/17 19:07 08/07/17 19:07 08/07/17 21:32 08/07/17 19:07 Intake and Output: 08/07/17 08/08/17 18:59 06:59 Intake Total 740 20 Output Total 1045 65 Balance -305 -45 - Medications Medications: Current Medications Acetaminophen (Tylenol 650mg/20.3ml Solution Ud) 650 mg PO Q6H PRN PRN Reason: Temperature >100.4 Last Admin: 08/06/17 20:57 Dose: 650 mg Albuterol/Ipratropium (Duoneb 3 Mg/0.5 Mg (3 Ml) Ud) 3 ml INH RQ6 [facility] Last Admin: 08/07/17 20:58 Dose: 3 ml Clotrimazole (Lotrimin 1%) 1 gm TOP BID [facility] Last Admin: 08/07/17 18:00 Dose: 1 applic Dextrose (Dextrose 50% Inj) 0 ml IV STAT PRN; Protocol PRN Reason: Hypoglycemia Protocol Last Admin: 08/03/17 17:55 Dose: 50 ml Furosemide (Lasix) 20 mg IVP Q12 [facility] Last Admin: 08/07/17 21:32 Dose: 20 mg Heparin Sodium (Porcine) (Heparin) 5,000 units SC Q12 [facility] Last Admin: 08/07/17 21:31 Dose: 5,000 units Lacosamide 100 mg/ Sodium (Chloride) 110 mls @ 110 mls/hr IV Q12H [facility] Last Admin: 08/07/17 21:33 Dose: 110 mls/hr Vancomycin HCl (Vancocin 750mg/Ns 150 Ml) 150 mls @ 100 mls/hr IVPB Q12H [facility] Last Admin: 08/07/17 15:06 Dose: 100 mls/hr Levetiracetam 1,000 mg/ Sodium (Chloride) 110 mls @ 420 mls/hr IVPB Q12H [facility] Last Admin: 02/21/18 15:06 Dose: 420 mls/hr Gentamicin Sulfate/Sodium Chloride (Gentamicin 60mg/50ml Ns) 60 mg in 50 mls @ 50 mls/hr IVPB Q24H [facility] Stop: 08/08/17 22:59 Last Admin: 08/07/17 21:32 Dose: 50 mls/hr Lactobacillus Acidophilus (Bacid Acidophilus) 1 cap PO BID [facility] Last Admin: 08/07/17 17:56 Dose: 1 cap Losartan Potassium (Cozaar) 25 mg PO DAILY [facility] Last Admin: 08/07/17 09:55 Dose: 25 mg Metoprolol Tartrate (Lopressor) 50 mg PO BID [facility] Last Admin: 08/07/17 17:57 Dose: 50 mg Metoprolol Tartrate (Lopressor) 5 mg IVP Q6H [facility] Last Admin: 08/07/17 15:15 Dose: Not Given Pantoprazole Sodium (Protonix Inj) 40 mg IVP Q12 [facility] Last Admin: 08/07/17 09:56 Dose: 40 mg Potassium Chloride (Potassium Chloride Oral Soln) 40 meq PO ONCE ONE Stop: 08/07/17 21:44 Rifampin (Rifampin Cap) 300 mg PO TID [facility] Last Admin: 08/07/17 17:56 Dose: 300 mg Rosuvastatin Calcium (Crestor) 40 mg PO HS [facility] Last Admin: 08/07/17 21:31 Dose: 40 mg Spironolactone (Aldactone) 25 mg PO BID [facility] Last Admin: 08/07/17 17:56 Dose: 25 mg - Labs Labs: 08/07/17 06:40 08/07/17 06:37 PT 14.6 SECONDS (9.7-12.2) H 08/01/17 19:55 INR 1.3 08/01/17 19:55 APTT 47 SECONDS (21-34) H 08/01/17 19:55 - Constitutional Appears: Non-toxic, No Acute Distress - Eye Exam Eye Exam: absent: Scleral icterus - ENT Exam ENT Exam: Mucous Membranes Moist - Respiratory Exam Respiratory Exam: absent: Respiratory Distress Additional comments: minimal rales; - Cardiovascular Exam Cardiovascular Exam: RRR, +S1, +S2 - GI/Abdominal Exam GI & Abdominal Exam: Soft. absent: Distended, Tenderness - Exam Exam: absent: Bladder Distension - Extremities Exam Additional comments: mild leg edema; - Neurological Exam Neurological Exam: Awake. absent: Alert - Psychiatric Exam Psychiatric exam: absent: Agitated - Skin Skin Exam: Warm. absent: Cyanosis Assessment and Plan (1) Hyponatremia Assessment & Plan: Improved; can hold off on further tolvaptan doses for now; monitor; avoid giving meds in hypotonic solution; Status: Acute (2) CHF (congestive heart failure) Assessment & Plan: With severe systolic dysfunction; on lasix 20 mg IV q12h; increasing aldactone to 25 mg bid (will help counter alkalosis and hypokalemia); Status: Chronic (3) Septic arthritis Assessment & Plan: On vanco and genta; genta trough mildly elevated; adjustment made by ID appreciated; continue to monitor random levels periodically; Status: Chronic (4) Hypokalemia Assessment & Plan: Mild but recommend to keep K ~4.0 in the setting of severe CHF; giving another 40 meq KCl this evening; Status: Acute
[2017-08-07] MEDS ORDERED: Gentamicin 60mg/50ml NS 60 MG/50 ML BAG IVPB SCH (22:00)
--- NOTE | 2017-08-07 23:13 | CP.PCM.PN ---
Subjective - Date & Time of Evaluation Date of Evaluation: 08/07/17 Time of Evaluation: 23:13 - Subjective Subjective: afebrile awake unresponsive. +rt. facial tics +VE RT. GAZE/AND RT.HEMIPERESIS ? NEW. detail follow-up neurology noted. PATIENT SEEN BY ORTHOPEDIC/AND NOTED. BILATERAL STITCHES REMOVED. LT.KNEE NOT HOT labs reviewed. GENTAMICIN TROUGH 1.2 SLIGHTLY HIGH dOSE HELD TODAY.. WILL GET GENTAMICIN RANDOM LEVEL IN A.M. IF LESS THAN 0.9 , WILL RE-DOSE WITH 60 MG iv GENTAMICIN X1 ( completing 5 doses. ) Objective - Vital Signs/Intake and Output Vital Signs (last 24 hours): Temp Pulse Resp BP Pulse Ox 99.8 F H 77 18 128/72 100 08/07/17 20:00 08/07/17 23:00 08/07/17 23:00 08/07/17 22:07 08/07/17 23:00 Intake and Output: 08/07/17 08/08/17 18:59 06:59 Intake Total 740 230 Output Total 1045 515 Balance -305 -285 - Medications Medications: Current Medications Acetaminophen (Tylenol 650mg/20.3ml Solution Ud) 650 mg PO Q6H PRN PRN Reason: Temperature >100.4 Last Admin: 08/06/17 20:57 Dose: 650 mg Albuterol/Ipratropium (Duoneb 3 Mg/0.5 Mg (3 Ml) Ud) 3 ml INH RQ6 [facility] Last Admin: 08/07/17 20:58 Dose: 3 ml Clotrimazole (Lotrimin 1%) 1 gm TOP BID [facility] Last Admin: 08/07/17 18:00 Dose: 1 applic Dextrose (Dextrose 50% Inj) 0 ml IV STAT PRN; Protocol PRN Reason: Hypoglycemia Protocol Last Admin: 08/03/17 17:55 Dose: 50 ml Furosemide (Lasix) 20 mg IVP Q12 [facility] Last Admin: 08/07/17 21:32 Dose: 20 mg Heparin Sodium (Porcine) (Heparin) 5,000 units SC Q12 [facility] Last Admin: 08/07/17 21:31 Dose: 5,000 units Lacosamide 100 mg/ Sodium (Chloride) 110 mls @ 110 mls/hr IV Q12H [facility] Last Admin: 08/07/17 21:33 Dose: 110 mls/hr Vancomycin HCl (Vancocin 750mg/Ns 150 Ml) 150 mls @ 100 mls/hr IVPB Q12H [facility] Last Admin: 08/07/17 15:06 Dose: 100 mls/hr Levetiracetam 1,000 mg/ Sodium (Chloride) 110 mls @ 420 mls/hr IVPB Q12H [facility] Last Admin: 08/07/17 15:06 Dose: 420 mls/hr Gentamicin Sulfate/Sodium Chloride (Gentamicin 60mg/50ml Ns) 60 mg in 50 mls @ 50 mls/hr IVPB Q24H [facility] Stop: 08/08/17 22:59 Last Admin: 08/07/17 21:32 Dose: 50 mls/hr Lactobacillus Acidophilus (Bacid Acidophilus) 1 cap PO BID [facility] Last Admin: 08/07/17 17:56 Dose: 1 cap Losartan Potassium (Cozaar) 25 mg PO DAILY [facility] Last Admin: 08/07/17 09:55 Dose: 25 mg Metoprolol Tartrate (Lopressor) 50 mg PO BID [facility] Last Admin: 08/07/17 17:57 Dose: 50 mg Metoprolol Tartrate (Lopressor) 5 mg IVP Q6H [facility] Last Admin: 08/07/17 22:36 Dose: 5 mg Pantoprazole Sodium (Protonix Inj) 40 mg IVP Q12 [facility] Last Admin: 08/07/17 09:56 Dose: 40 mg Rifampin (Rifampin Cap) 300 mg PO TID [facility] Last Admin: 08/07/17 17:56 Dose: 300 mg Rosuvastatin Calcium (Crestor) 40 mg PO HS [facility] Last Admin: 08/07/17 21:31 Dose: 40 mg Spironolactone (Aldactone) 25 mg PO BID [facility] Last Admin: 08/07/17 17:56 Dose: 25 mg - Labs Labs: 08/07/17 06:40 08/07/17 06:37 PT 14.6 SECONDS (9.7-12.2) H 08/01/17 19:55 INR 1.3 08/01/17 19:55 APTT 47 SECONDS (21-34) H 08/01/17 19:55 - Constitutional Appears: No Acute Distress - Head Exam Head Exam: NORMAL INSPECTION - Eye Exam Pupil Exam: Unequal - ENT Exam ENT Exam: Mucous Membranes Dry - Neck Exam Neck Exam: Normal Inspection - Respiratory Exam Respiratory Exam: Clear to Ausculation Bilateral - Cardiovascular Exam Cardiovascular Exam: REGULAR RHYTHM, +S1, +S2 - GI/Abdominal Exam GI & Abdominal Exam: Soft, Normal Bowel Sounds - Extremities Exam Extremities Exam: Pedal Edema (left knee with small effusion. Stitches removed. ). absent: Calf Tenderness - Neurological Exam Neurological Exam: Awake (but unresponsive. Right facial tics.) Additional comments: right sided weakness. - Psychiatric Exam Psychiatric exam: Flat Affect - Skin Skin Exam: Normal Color, Warm Assessment and Plan (1) New onset seizure Status: Acute (2) Hypokalemia Status: Acute (3) Hyponatremia Status: Acute (4) PAF (paroxysmal atrial fibrillation) Status: Acute (5) Septic arthritis Status: Chronic (6) Osteomyelitis of left knee region Status: Acute (7) H/O mitral valve replacement Status: Chronic (8) Diabetes mellitus Status: Chronic - Assessment and Plan (Free Text) Assessment: Assessment: NEW ONSET OF SEIZURES ? R/O EMBOLI TO BRAIN VS ELECTROLYTE IMBALANCE ?CVA with RT .HEMIPERESIS - MSSA SEPTIC ARTHRITIS LEFT KNEE/WITH PSEUDOGOUT /? OSTEOMYLITIS -S/P ARTHROSCOPIC IRRIGATION/DEBRIDEMENT, LEFT KNEE ARTHROSCOPIC PATELLAR MEDIAL /LATERAL MENISCECTOMY AND EXTENSIVE SYNOVECTOMY/CHONDROPLASTY TROCHLEA 07/19/17 - PROSTHETIC MITRAL- VALVE ENDOCARDITIS.(+VE VEGETATIONS could NOT BE RULED OUT ON 2-d ECHO ). -HX OF CABG /MVR. -CONGESTIVE HEART FAILURE. -PAROXSYSMAL ATRIAL FIBRILLATION. -ELECTROLYTE IMBALANCE -SIADH -DM-2 -RHEUMATOID ARTHRITIS/OSTEOPOROSIS BY HISTORY. PLAN . . ON IV VANCOMYCIN 1GM LD , F/U BY 750MG IV Q 12HRLY 08/03/17 CONTINUE PO RIFAMPIN 300MG PO TID. GENTAMICIN HELD TROUGH LEVEL SLIGHTLY ELEVATED rANDOM GENTA. LEVEL IN A.M.. iF LESS THAN 0.9 , WILL REDOSE WITH 60 MG GENTAMICIN X1 -FIFTH DOSE. IN AM. NEURO W/U IN PROGRESS. EEG -P IV FLUIDS/ PER DR LEVY-RENAL. ?ASTRID TO R/O VEGETATION AND SEPTIC EMBOLI. F/U CULTURES. CASE DISCUSSED WITH STAFF /AND DR BAUGH -ASSOCIATE DIRECTOR.
[2017-08-08] MEDS: Vancomycin 750mg/NS 150 ml 150 ML IVPB SCH ×2 (00:15→14:23)
[2017-08-08] MEDS: levETIRAcetam 1,000 MG in Sodium Chloride 0.9% 100 ML IVPB SCH ×2 (01:26→15:18)
[2017-08-08] MEDS: Albuterol-Ipratrop 3 mg / 0.5 (3 ml) UD INH SCH ×4 (02:25→21:18)
[2017-08-08] MEDS ORDERED: Potassium Chloride 20 mEq/15 ml LIQ UD PO ONE ×3 (02:30→12:00)
[2017-08-08] MEDS: Metoprolol 1 mg/ml Inj IVP SCH ×4 (03:10→22:22)
[2017-08-08 06:20] LABS: HEMOGLOBIN 8.4 g/dL (11.0-16.0)
[2017-08-08 06:36] LABS: ALB/GLOB RATIO 0.5 (1.0-2.1); ALBUMIN 2.7 g/dL (3.5-5.0); ALT/SGPT 16 U/L (9-52); AST/SGOT 39 U/L (14-36); BLOOD UREA NITROGEN 15 mg/dL (7-17); CALCIUM 8.4 mg/dl (8.6-10.4); GFR AFRICAN-AMERICAN > 60; GFR NON-AFRICAN AMERICAN 55; MAGNESIUM 1.5 mg/dL (1.6-2.3)
--- NOTE | 2017-08-08 06:49 | CP.PCM.PN ---
Subjective - Date & Time of Evaluation Date of Evaluation: 08/08/17 Time of Evaluation: 06:46 - Subjective Subjective: Ms. Mobley was seen and examined at the bedside. She remains non-verbal, unable to answer any questions and follow any commands. She has the occasional facial twitching, moves her left upper extremity spontaneously with hand mitten for patient safety. She remains with right upper extremity flaccid, bilateral lower extremities moves in response to noxious stimuli. Family meeting was arranged yesterday in regards to patient's condition with patient's spouse, patient's son. Lap Cutter Truer Operator, Dr. Moreno Neurologist, Open Hearth Furnace Operator, and ICU Director present. [employer] Design[employer] was utilized for translation purposes. At present, her na-132, K-3.5. Mg. 1.5. There was no untoward events overnight. Objective - Vital Signs/Intake and Output Vital Signs (last 24 hours): Temp Pulse Resp BP Pulse Ox 98.7 F 80 22 135/78 97 08/08/17 00:00 08/08/17 02:07 08/08/17 02:07 08/08/17 02:07 08/08/17 00:07 Intake and Output: 08/07/17 08/08/17 18:59 06:59 Intake Total 740 560 Output Total 1045 705 Balance -305 -145 - Medications Medications: Current Medications Acetaminophen (Tylenol 650mg/20.3ml Solution Ud) 650 mg PO Q6H PRN PRN Reason: Temperature >100.4 Last Admin: 08/06/17 20:57 Dose: 650 mg Albuterol/Ipratropium (Duoneb 3 Mg/0.5 Mg (3 Ml) Ud) 3 ml INH RQ6 [facility] Last Admin: 08/08/17 02:25 Dose: 3 ml Clotrimazole (Lotrimin 1%) 1 gm TOP BID [facility] Last Admin: 08/07/17 18:00 Dose: 1 applic Dextrose (Dextrose 50% Inj) 0 ml IV STAT PRN; Protocol PRN Reason: Hypoglycemia Protocol Last Admin: 08/03/17 17:55 Dose: 50 ml Furosemide (Lasix) 20 mg IVP Q12 [facility] Last Admin: 08/07/17 21:32 Dose: 20 mg Heparin Sodium (Porcine) (Heparin) 5,000 units SC Q12 [facility] Last Admin: 08/07/17 21:31 Dose: 5,000 units Lacosamide 100 mg/ Sodium (Chloride) 110 mls @ 110 mls/hr IV Q12H [facility] Last Admin: 08/07/17 21:33 Dose: 110 mls/hr Vancomycin HCl (Vancocin 750mg/Ns 150 Ml) 150 mls @ 100 mls/hr IVPB Q12H [facility] Last Admin: 08/08/17 00:15 Dose: 100 mls/hr Levetiracetam 1,000 mg/ Sodium (Chloride) 110 mls @ 420 mls/hr IVPB Q12H [facility] Last Admin: 08/08/17 01:26 Dose: 420 mls/hr Lactobacillus Acidophilus (Bacid Acidophilus) 1 cap PO BID [facility] Last Admin: 08/07/17 17:56 Dose: 1 cap Losartan Potassium (Cozaar) 25 mg PO DAILY [facility] Last Admin: 08/07/17 09:55 Dose: 25 mg Metoprolol Tartrate (Lopressor) 50 mg PO BID [facility] Last Admin: 08/07/17 17:57 Dose: 50 mg Metoprolol Tartrate (Lopressor) 5 mg IVP Q6H [facility] Last Admin: 08/08/17 03:10 Dose: 5 mg Pantoprazole Sodium (Protonix Inj) 40 mg IVP Q12 [facility] Last Admin: 08/07/17 22:00 Dose: 40 mg Rifampin (Rifampin Cap) 300 mg PO TID [facility] Last Admin: 08/07/17 17:56 Dose: 300 mg Rosuvastatin Calcium (Crestor) 40 mg PO HS [facility] Last Admin: 08/07/17 21:31 Dose: 40 mg Spironolactone (Aldactone) 25 mg PO BID [facility] Last Admin: 08/07/17 17:56 Dose: 25 mg - Labs Labs: 08/07/17 06:40 08/08/17 06:05 PT 14.6 SECONDS (9.7-12.2) H 08/01/17 19:55 INR 1.3 08/01/17 19:55 APTT 47 SECONDS (21-34) H 08/01/17 19:55 - Constitutional Appears: No Acute Distress - Head Exam Head Exam: NORMAL INSPECTION - Eye Exam Pupil Exam: PERRL - Neurological Exam Neurological Exam: Awake Neuro motor strength exam: Left Upper Extremity: 4, Right Upper Extremity: 0, Left Lower Extremity: 0, Right Lower Extremity: 0 Additional comments: Neurological unchanged from previous examination with episode of facial twitching. Assessment and Plan (1) Seizure Assessment & Plan: Case discussed with Dr. Moreno, continue all current medical regimen. Recommend two hour continuos bedside EEG this am. Status: Acute
[2017-08-08 06:54] LABS: MEAN CELL VOLUME 87.8 fL (81.0-99.0); MEAN CORPUSCULAR HGB CONC 33.1 g/dL (33.0-37.0); MEAN PLATELET VOLUME 8.7 fL (7.2-11.7); PLATELET COUNT 228 K/uL (130-400); RED CELL DISTRIBUTION WIDTH 17.1 % (11.5-14.5)
--- NOTE | 2017-08-08 08:50 | RAD ---
Chest x-ray single frontal view History: Pneumonia. Comparison: 08/07/2014 Findings: Lines and tubes in stable position. Venous congestion. Patchy left basilar airspace opacity with small left pleural effusion. Biapical pleural thickening with upper lobe granulomatous changes. Enlarged ectatic aorta. Calcification at aortic knob and along the course of the aorta. Status post median sternotomy and CABG. Valve replacement in place. Degenerative changes in the spine and shoulders. Impression: Lines and tubes in stable position. Venous congestion. Patchy left basilar airspace opacity with small left pleural effusion. Biapical pleural thickening with upper lobe granulomatous changes. Enlarged ectatic aorta. Calcification at aortic knob and along the course of the aorta. Status post median sternotomy and CABG. Valve replacement in place.
[2017-08-08 09:58] LABS: LYMPH # 1.2 K/uL (1.0-4.3); MONO # 0.1 K/uL (0.0-0.8); NEUT # 3.7 K/uL (1.8-7.0)
[2017-08-08] MEDS: Lactobacillus Acidophilus 500 MU Cap PO SCH ×2 (10:34→17:19)
[2017-08-08] MEDS: Clotrimazole 1% Cream(30 gm) TOP SCH ×2 (10:38→17:18)
[2017-08-08] MEDS: Lacosamide 200mg/20ml 100 MG in Sodium Chloride 0.9% 100 ML IV SCH ×2 (10:42→22:46)
[2017-08-08] MEDS ORDERED: Divalproex 500 mg DR Tab PO STA (11:24)
[2017-08-08] MEDS ORDERED: Valproate 1,000 MG in Sodium Chloride 0.9% 100 ML IVPB ONE (12:00)
--- NOTE | 2017-08-08 14:23 | CP.PCM.PN ---
Subjective - Date & Time of Evaluation Date of Evaluation: 08/08/17 Time of Evaluation: 14:15 - Subjective Subjective: Hospitalist Progress Note Patient was seen and examined at 2:15 PM 08/08/17 ICU BED #6 Patient is awake with NGT and NONrepsonsive to questioning therefore ROS is NOT possible. EXAM: - Constitutional Appears: Non-toxic, No Acute Distress, However there is a twitching of mostly the right side of the face that occurs every 2 to 3 seconds - Head Exam Head Exam: NORMAL INSPECTION - Eye Exam Eye Exam: Pupils are reactive to light. The Right Pupil was greater in size than the Left Pupil however on today's exam they are equal in size - Neck Exam Neck Exam: NO cervical/supraclavicular/submandibular lymphadenopathy, NO thyromegaly - Respiratory Exam Respiratory Exam: Clear to Ausculation Bilateral, NORMAL BREATHING PATTERN. absent: Rales, Rhonchi, Wheezes - Cardiovascular Exam Cardiovascular Exam: Normal +S1, +S2, NO M/R/G - GI/Abdominal Exam GI & Abdominal Exam: Soft, ND, BSX4 are now normal, NO guarding, NO rebound tenderness - Extremities Exam Extremities Exam: NO edema present in the arms and legs, Capillary refill is 2 seconds, Pulses are strong and equal, Right Arm PICC Line Left knee edema without erythema - Neurological Exam Neurological Exam: Awake with twitching present mostly on the right side of the face that appear to be occurring less frequency - Skin Skin Exam: Bilateral groin area with a rash that is erythematous with scalloping borders, Lumbar/Sacral blanchable erythema Assessment and Plan (1) New onset seizure Assessment & Plan: * 08/01: per review of ED triage note: Via ALS from [facility], prior notification of resident experiencing ''jerky movements few secs for a total of 3 episodes''; seizure-like activity witnessed by ALS, treated with ATIVAN 2MG IV GIVEN VIA PICC LINE TO RT ARM PER REPORT GIVEN; on NRB 100%, UGL=232mz/d * 08/01: Per review of ED note: In ambulance, given Ativan 2mg on route, NIHSS: 29 (noted for dysarthria and profound neglect does not recognize own hand or oreitns to one side. ED attempted to reverse with Flumazenil given patient appeared comatose. Intubated in the ED for airway protection with etomidate * Code stroke 08/01/17 GCS: 4 * Factors for seizure activity: * Precipitating factors: hyponatremia, hypokalemia, hypomagnesium * Antibiotic side effect: gentamicin (seizure, confusion, lethargy per uptodate ), rifampin (fatigue, drowsiness, confusion), Cefazolin (seizure) * pain medication: tramadol * Imaging: * CT head (08/01/17): nonspecific white matter changes. Acute infarction may be CT occult within first 24 hours. If a focal deficit persists, consider for further evaulation. Atherosclerotic disease of intracranial arteries. probable chronic lacunar infarcts within basal ganglia. * CT Head and neck (08/01/17): no flow limiting cervical cartoid artery stenosis or vessel occlusion. Patent vertebral arteries * CT Head (08/02/17): no evidence of acute infarct. Chronic microvascular white matter ischemic change. otherwise unremarkable. * MRI Brain (08/05/17): NO acute intracranial hemorrhage. Moderate chronic white matter changes with scattered small basal nuclei, brain stem, and left cerebellar lacunar infarcts * MRI Neck (08/05/17): NO evidence of any significant stenosis of the carotid arteries * MRI Brain (08/05/17): Right distal Posterior Cerebral Artery can't be visualized but this may be artifactual vs occlusion can't be excluded. * Neurology (Dr. Cornejo/Josh) on board-->help appreciated * F/u EEG planned for morning 08/08/17 * Vimpat 100 mg IVP Q12H * Keppra 1,000 mg IV Q12H * Depakote 750 mg PO 2x/day added 08/08/17 * Valproic Acid 750mg IV Q12H added 08/08/17 * Acyclovir 600 mg IV Q8H added 08/08/17 * Patient for Lumbar Tap 08/08/17 by ICU Team and the following studies have been ordered * Tube 1: cell count with differential, protein, glucose, Gram Stain, Cryptococcal Ag, Bacterial Ag, VDRL * Tube 2: HSV 1 PCR, HSV 2 PCR, AFB PCR, WNV PCR, Lyme PCR * Tube 3: Bacterial Culture, AFB Smear and Culture, Fungal Smear and Culture, HSV Culture, Cytology, Anti-NMDAR Antibodies to look for C-Vhvabr-P-Aspartate Receptor Abs * Ceftriaxone 2 gram IV Q24H started 08/08/17 * Dexamethasone 10 mg IV x 1 dose followed by 6 mg IV Q6H through 08/12/17 * PICC line (had been placed 07/24/17). * Monitor electrolytes Status: Acute (2) Hypokalemia Assessment & Plan: * Replete as needed Status: Acute (3) Hyponatremia/SIADH Assessment & Plan: * Nephrology (Dr. Eddy) on the case-->help appreciated * SIADH * Could also be secondary to the Keppra? * Patient has received Tolvaptan 30 mg PO 1x/day on 08/03/17/, 08/04/17, 08/05/17, 08/06/17. However patient is also on Rifampin (as part of treatment for Left Knee Septic Arthritis) and this may interfere with the Tolvaptan. * Aldactone 25 mg PO Q12H is on HOLD Status: Acute (4) Septic arthritis Assessment & Plan: * Infectious Disease (Dr. Jannie Avina) on the case-->help appreciated * From last admission: * On 07/19/17: Left knee arthroscopic. #1 I&D. #2 extensive synovectomy. #3 synovial biopsy and culture acquisition. #4 partial medial and lateral menisectomies. #5 chondroplasty trochlea * Post-Operative Diagnoses: Left knee #1 septic arthritis. #2 inflammatory synovitis. #3 crystal arthropathy/ pseudogout. #4 deg/complex medial meniscal tear. #5 deg/ complex lateral meniscal tear. #6 chondromalacia trochlea/MFC/ LFC, early DJD patella * 07/19/17: MSSA in Left knee and left Synovial sample * 07/16/17: Blood culture: no growth after 5 days * 07/23/17: Blood culture: no growth after 5 days * Patient was discharged on Ancef, Rifampin, and gentamicin. MICS available (07/26) and came back on 08/01/17. * Gentamicin Sulfate 70mg IVPB Q24H (active 08/04/17) X 5 bags with last dose on 08/08/17 * Monitor renal function * Rifampin 300mg PO TID (08/02/17) * Will impact Samsca * Vancomycin 750mg IVPB Q12H (active since 08/03/17) * Monitor renal function * She will need a total of 6 weeks of Antibiotics * Orthopedics LONA Portillo Stock removed sutures 08/07/17 Status: Chronic (5) H/O mitral valve replacement (bioprosthetic valve) Assessment & Plan: * Cardiology (Dr. Rowan) on the case-->help appreciated; Dr. Rush covering this weekend * Will need to follow-up in regards anticoagulation such as aspirin in regards to bioprosthetic valvue * Per cardiology, do not start chemical anticoagulation given recurrent history of GI bleeding * Echocardiogram (08/02/17): No ASD seen. * Echocardiogram (07/22/17): limited study, vegetation on MV cannot be excluded. Rec. ASTRID to define MV/Calcified mitral ring? * Echocardiogram (07/01/17): systolic function is severely impaired. Anterior and septa; aldridge reveal dyskinesis with wall thinning. (indicative of prior transmural TN), inferior wall is severely hypokinestic, lateral wall is mod to severely hypokinetic, Left atrium is moderately dilated, right atrium is moderately dilated, mild concentric left ventricular hypertrophy, mild mitral valve stenosis, * Cardiac cath: severe multivessel coronary artery disease, severe left ventricular systolic dysfunction (2017) * Hx CABG * Prosthetic valve * NO ASTRID considering findings on MRI Brain 08/05/17 that showed chronic lacunar infarcts Status: Chronic (6) Diabetes mellitus Assessment & Plan: * [id number]: 5.1 * Controlled * Accuchecks Q6H Status: Chronic (7) Hypertension Assessment & Plan: * Lopressor 50mg PO BID * Crestor 2.5mg POqHS * Cozaar 25mg PO daily Status: Chronic (8) Hx Coronary artery disease/CABG Status: Chronic * Lopressor 50mg PO BID * Crestor 2.5mg POqHS * Cozaar 25mg PO daily (9) Severe systolic congestive heart failure Assessment & Plan: * Lopressor, Cozaar * On last admission recommends for outpatient AICD by Dr Rowan Status: Chronic (10) Atelectasis Assessment & Plan: * CT Chest (08/02/17): small right pleural effusion and right lower lobe subsegmental atelectasis. Opacity seen at right lung base on earlier chest radiograph of the same date was likely artifactual due to overlying medical equipment Status: Acute (11) Paroxysmal Atrial Fibrillation Assessment & Plan: * Lopressor 5mg IVPQ6H * Lopressor 50mg PO BID * Per cardiology, hold chemical anticoagulation, patient has history of recurrent GI bleed, awaiting brain MRI, may or may not need ASTRID Status: Acute (12) Fungal Rash * Inner groin folds and back side * Lotrimin 1% cream (13) Prophylactic measure Assessment & Plan: * Heparin 5000 units [id number] was placed on HOLD for Lumbar Tap * Protonix 40mg IVP Q12H * Bacid 1 cap PO BID * Tylenol 650 mg Q6H PRN Fever * Duoneb Q6H PRN * PT/OT eval * Wound care Harsh Stokes D.O. Objective - Vital Signs/Intake and Output Vital Signs (last 24 hours): Temp Pulse Resp BP Pulse Ox 97.6 F 78 15 126/61 100 08/08/17 04:00 08/08/17 06:07 08/08/17 06:07 08/08/17 10:33 08/08/17 06:07 Intake and Output: 08/08/17 08/08/17 06:59 18:59 Intake Total 640 Output Total 1055 Balance -415 - Medications Medications: Current Medications Acetaminophen (Tylenol 650mg/20.3ml Solution Ud) 650 mg PO Q6H PRN PRN Reason: Temperature >100.4 Last Admin: 08/06/17 20:57 Dose: 650 mg Albuterol/Ipratropium (Duoneb 3 Mg/0.5 Mg (3 Ml) Ud) 3 ml INH RQ6 [facility] Last Admin: 08/08/17 13:34 Dose: Not Given Clotrimazole (Lotrimin 1%) 1 gm TOP BID [facility] Last Admin: 08/08/17 10:38 Dose: 1 applic Dextrose (Dextrose 50% Inj) 0 ml IV STAT PRN; Protocol PRN Reason: Hypoglycemia Protocol Last Admin: 08/03/17 17:55 Dose: 50 ml Divalproex Sodium (Depakote Dr) 750 mg PO BID [facility] Heparin Sodium (Porcine) (Heparin) 5,000 units SC Q12 [facility] Last Admin: 08/07/17 21:31 Dose: 5,000 units Lacosamide 100 mg/ Sodium (Chloride) 110 mls @ 110 mls/hr IV Q12H [facility] Last Admin: 08/08/17 10:42 Dose: 110 mls/hr Vancomycin HCl (Vancocin 750mg/Ns 150 Ml) 150 mls @ 100 mls/hr IVPB Q12H [facility] Last Admin: 08/08/17 00:15 Dose: 100 mls/hr Levetiracetam 1,000 mg/ Sodium (Chloride) 110 mls @ 420 mls/hr IVPB Q12H [facility] Last Admin: 08/08/17 01:26 Dose: 420 mls/hr Acyclovir 600 mg/ Sodium (Chloride) 100 mls @ 100 mls/hr IV Q8H [facility] Stop: 08/29/17 23:59 Valproate Sodium 750 mg/ (Sodium Chloride) 107.5 mls @ 100 mls/hr IVPB Q12H [facility] Lactobacillus Acidophilus (Bacid Acidophilus) 1 cap PO BID [facility] Last Admin: 08/08/17 10:34 Dose: 1 cap Losartan Potassium (Cozaar) 25 mg PO DAILY [facility] Last Admin: 08/08/17 10:37 Dose: 25 mg Metoprolol Tartrate (Lopressor) 50 mg PO BID [facility] Last Admin: 08/08/17 10:34 Dose: 50 mg Metoprolol Tartrate (Lopressor) 5 mg IVP Q6H [facility] Last Admin: 08/08/17 10:33 Dose: 5 mg Rifampin (Rifampin Cap) 300 mg PO TID [facility] Last Admin: 08/08/17 10:34 Dose: 300 mg Rosuvastatin Calcium (Crestor) 40 mg PO HS [facility] Last Admin: 08/07/17 21:31 Dose: 40 mg Spironolactone (Aldactone) 25 mg PO BID [facility] Last Admin: 08/08/17 10:34 Dose: 25 mg - Labs Labs: 08/08/17 06:07 08/08/17 06:05 PT 14.6 SECONDS (9.7-12.2) H 08/01/17 19:55 INR 1.3 08/01/17 19:55 APTT 47 SECONDS (21-34) H 08/01/17 19:55
--- NOTE | 2017-08-08 15:06 | PCM.PROC ---
<Scottie Nogueira - Last Filed: 08/08/17 15:04> Procedures Attestation:: I certify that I have explained the specified Operation(s) or Procedure(s), risks, benefits and reasonable alternatives to the Patient and/or other person responsible. The opportunity was given to ask questions and all questions answered - Lumbar Puncture Consent Obtained: Written Consent Patient Position: Left Lateral [place]ubitius Skin Prep: 0.5% Chlorhexidine/Alcohol Local Anesthetic Used: Lidocaine 2% Amount of Anesthesia Used (mls): 5 Spinal Needle Gauge: 22G Interspace Used: L3-L4 Opening Pressure (cmH2O): 2 Fluid Initially Obtained: Clear Complications: None Additional comments: 4 tubes of clear spinal fluid collected. <Kameron Simpson - Last Filed: 08/08/17 15:38> Attending/Attestation - Attestation I have personally seen and examined this patient.: Yes I have fully participated in the care of the patient.: Yes I have reviewed all pertinent clinical information, including history, physical exam and plan: Yes Notes (Text): 08/08/17 15:37 I participated and assisted in this procedure with Dr. Nogueira. The patient tolerated the procedure well with no complications.
[2017-08-08] MEDS ORDERED: Dexamethasone 4 mg/1 ml IVP ONE (16:15)
[2017-08-08 16:18] LABS: FLUID TYPE SPINAL FLUID
--- NOTE | 2017-08-08 16:25 | CP.CCUPN ---
<MirlandeScottie boyd R - Last Filed: 08/08/17 16:20> CCU Subjective - Physician Review Subjective (Free Text): Patient seen and examined. Saturating well on nasal cannula. NG tube in place. Regular rate, rhythm on monitor is sinus. Facial tick still present. Had lengthy family discussion yesterday with son and along with neurologist Dr Moreno. Bedside EEG done today with neurologist present. Waveforms suggest temporal lobe activity, possibly HSV related? Patient also had fever a few days ago, but never had leukocytosis. A lumbar puncture was performed today with appropriate CSF lab orders. Started Acyclovir 600mg IV Q8H, Ceftriaxone 2g IV QD, Dexamethasone 6mg IV Q6H, Valproate 750mg IV Q12H. CCU Objective - Vital Signs / Intake & Output Intake and Output (Last 8hrs): Intake & Output 08/08/17 08/08/17 08/08/17 06:59 14:59 22:59 Intake Total 410 Output Total 690 Balance -280 Intake: Intake, IV Amount 250 R PICC line 250 Tube Feeding 160 Output: Urine 690 Urethral (Castañeda) 690 - Physical Exam Head: Positive for: Atraumatic, Normocephalic Mouth: Positive for: Moist Mucous Membranes Neck: Positive for: Normal Range of Motion Respiratory/Chest: Positive for: Clear to Auscultation, Good Air Exchange Cardiovascular: Positive for: Normal S1, S2 Abdomen: Positive for: Normal Bowel Sounds. Negative for: Tenderness, Distention Upper Extremity: Positive for: Normal Inspection Lower Extremity: Positive for: Normal Inspection, Other (left knee sutures intact w/ knee swollen) Psychiatric: Negative for: Alert, Oriented x 3 - Medications Active Medications: Active Medications Generic Name Dose Route Start Last Admin Trade Name Freq PRN Reason Stop Dose Admin Acetaminophen 650 mg 08/05/17 10:23 08/06/17 20:57 Tylenol 650mg/20.3ml Solution Ud PO 650 mg Q6H PRN Administration Temperature >100.4 Albuterol/Ipratropium 3 ml 08/02/17 08:00 08/08/17 13:34 Duoneb 3 Mg/0.5 Mg (3 Ml) Ud INH Not Given RQ6 KODAK Clotrimazole 1 gm 08/04/17 10:00 08/08/17 10:38 Lotrimin 1% TOP 1 applic BID KODAK Administration Dexamethasone 6 mg 08/08/17 22:00 Decadron Inj IVP Q6H KODAK Dextrose 0 ml 08/03/17 17:06 08/03/17 17:55 Dextrose 50% Inj IV 50 ml STAT PRN Administration Hypoglycemia Protocol Protocol Heparin Sodium (Porcine) 5,000 units 08/05/17 22:00 08/07/17 21:31 Heparin SC 5,000 units Q12 KODAK Administration Lacosamide 100 mg/ Sodium 110 mls @ 110 mls/hr 08/03/17 22:00 08/08/17 10:42 Chloride IV 110 mls/hr Q12H KODAK Administration Vancomycin HCl 150 mls @ 100 mls/hr 08/06/17 13:00 08/08/17 14:23 Vancocin 750mg/Ns 150 Ml IVPB 100 mls/hr Q12H KODAK Administration Levetiracetam 1,000 mg/ Sodium 110 mls @ 420 mls/hr 08/07/17 14:00 08/08/17 15:18 Chloride IVPB 420 mls/hr Q12H KODAK Administration Acyclovir 600 mg/ Sodium 100 mls @ 100 mls/hr 08/08/17 20:00 Chloride IV 08/29/17 23:59 Q8H KODAK Valproate Sodium 750 mg/ 107.5 mls @ 100 mls/hr 08/09/17 00:00 Sodium Chloride IVPB Q12H KODAK Ceftriaxone Sodium 2 gm/ 100 mls @ 100 mls/hr 08/08/17 16:00 Sodium Chloride IVPB Q24H [facility] Lactobacillus Acidophilus 1 cap 08/02/17 10:00 08/08/17 10:34 Bacid Acidophilus PO 1 cap BID KODAK Administration Losartan Potassium 25 mg 08/02/17 10:00 08/08/17 10:37 Cozaar PO 25 mg DAILY KODAK Administration Metoprolol Tartrate 50 mg 08/02/17 10:00 08/08/17 10:34 Lopressor PO 50 mg BID KODAK Administration Metoprolol Tartrate 5 mg 08/03/17 09:15 08/08/17 15:16 Lopressor IVP 5 mg Q6H KODAK Administration Rifampin 300 mg 08/02/17 10:00 08/08/17 14:25 Rifampin Cap PO 300 mg TID KODAK Administration Rosuvastatin Calcium 40 mg 08/03/17 08:34 08/07/17 21:31 Crestor PO 40 mg HS KODAK Administration Spironolactone 25 mg 08/07/17 10:00 08/08/17 10:34 Aldactone PO 25 mg BID KODAK Administration - Patient Studies Lab Studies: Microbiology Studies 08/04/17 02:20 Blood Culture - Preliminary Blood-Thru Central Line NO GROWTH AFTER 4 DAYS 08/04/17 02:20 Blood Culture - Preliminary Blood-Thru Central Line NO GROWTH AFTER 4 DAYS 08/05/17 Unknown Urine Culture - Final Urine,[place] Yeast Species Lab Studies 08/08/17 08/08/17 08/08/17 Range/Units 16:16 12:24 06:07 WBC 5.0 (4.8-10.8) K/uL RBC 2.90 L (3.80-5.20) Mil/uL Hgb 8.4 L (11.0-16.0) g/dL Hct 25.4 L (34.0-47.0) % MCV 87.8 (81.0-99.0) fL MCH 29.0 (27.0-31.0) pg MCHC 33.1 (33.0-37.0) g/dL RDW 17.1 H (11.5-14.5) % Plt Count 228 (130-400) K/uL MPV 8.7 (7.2-11.7) fL Neut % (Auto) 74.0 (50.0-75.0) % Lymph % (Auto) 24.0 (20.0-40.0) % [place] % (Auto) 2.0 (0.0-10.0) % Eos % (Auto) 0.0 (0.0-4.0) % Baso % (Auto) 0.0 (0.0-2.0) % Neut # (Auto) 3.7 (1.8-7.0) K/uL Lymph # (Auto) 1.2 (1.0-4.3) K/uL [place] # (Auto) 0.1 (0.0-0.8) K/uL Sodium (132-148) mmol/L Potassium (3.6-5.2) mmol/L Chloride (98-107) mmol/L Carbon Dioxide (22-30) mmol/L Anion Gap (10-20) BUN (7-17) mg/dL Creatinine (0.7-1.2) mg/dL Est GFR ( Amer) Est GFR (Non-Af Amer) POC Glucose (mg/dL) 138 H (65-110) mg/dL Random Glucose (65-105) mg/dL Calcium (8.6-10.4) mg/dl Phosphorus (2.5-4.5) mg/dL Magnesium (1.6-2.3) mg/dL Total Bilirubin (0.2-1.3) mg/dL AST (14-36) U/L ALT (9-52) U/L Alkaline Phosphatase (38-126) U/L Total Protein (6.3-8.3) g/dL Albumin (3.5-5.0) g/dL Globulin (2.2-3.9) gm/dL Albumin/Globulin Ratio (1.0-2.1) Fluid Type Spinal fluid 08/08/17 08/08/17 08/08/17 Range/Units 06:05 06:03 06:00 WBC (4.8-10.8) K/uL RBC (3.80-5.20) Mil/uL Hgb (11.0-16.0) g/dL Hct (34.0-47.0) % MCV (81.0-99.0) fL MCH (27.0-31.0) pg MCHC (33.0-37.0) g/dL RDW (11.5-14.5) % Plt Count (130-400) K/uL MPV (7.2-11.7) fL Neut % (Auto) (50.0-75.0) % Lymph % (Auto) (20.0-40.0) % [place] % (Auto) (0.0-10.0) % Eos % (Auto) (0.0-4.0) % Baso % (Auto) (0.0-2.0) % Neut # (Auto) (1.8-7.0) K/uL Lymph # (Auto) (1.0-4.3) K/uL [place] # (Auto) (0.0-0.8) K/uL Sodium 132 (132-148) mmol/L Potassium 3.5 L (3.6-5.2) mmol/L Chloride 91 L (98-107) mmol/L Carbon Dioxide 34 H (22-30) mmol/L Anion Gap 11 (10-20) BUN 15 (7-17) mg/dL Creatinine 1.0 (0.7-1.2) mg/dL Est GFR ( Amer) > 60 Est GFR (Non-Af Amer) 55 POC Glucose (mg/dL) 99 69 (65-110) mg/dL Random Glucose 100 (65-105) mg/dL Calcium 8.4 L (8.6-10.4) mg/dl Phosphorus 3.4 (2.5-4.5) mg/dL Magnesium 1.5 L (1.6-2.3) mg/dL Total Bilirubin 0.5 (0.2-1.3) mg/dL AST 39 H (14-36) U/L ALT 16 (9-52) U/L Alkaline Phosphatase 105 (38-126) U/L Total Protein 7.8 (6.3-8.3) g/dL Albumin 2.7 L (3.5-5.0) g/dL Globulin 5.1 H (2.2-3.9) gm/dL Albumin/Globulin Ratio 0.5 L (1.0-2.1) Fluid Type 08/07/17 08/07/17 Range/Units 23:31 17:49 WBC (4.8-10.8) K/uL RBC (3.80-5.20) Mil/uL Hgb (11.0-16.0) g/dL Hct (34.0-47.0) % MCV (81.0-99.0) fL MCH (27.0-31.0) pg MCHC (33.0-37.0) g/dL RDW (11.5-14.5) % Plt Count (130-400) K/uL MPV (7.2-11.7) fL Neut % (Auto) (50.0-75.0) % Lymph % (Auto) (20.0-40.0) % [place] % (Auto) (0.0-10.0) % Eos % (Auto) (0.0-4.0) % Baso % (Auto) (0.0-2.0) % Neut # (Auto) (1.8-7.0) K/uL Lymph # (Auto) (1.0-4.3) K/uL [place] # (Auto) (0.0-0.8) K/uL Sodium (132-148) mmol/L Potassium (3.6-5.2) mmol/L Chloride (98-107) mmol/L Carbon Dioxide (22-30) mmol/L Anion Gap (10-20) BUN (7-17) mg/dL Creatinine (0.7-1.2) mg/dL Est GFR ( Amer) Est GFR (Non-Af Amer) POC Glucose (mg/dL) 76 83 (65-110) mg/dL Random Glucose (65-105) mg/dL Calcium (8.6-10.4) mg/dl Phosphorus (2.5-4.5) mg/dL Magnesium (1.6-2.3) mg/dL Total Bilirubin (0.2-1.3) mg/dL AST (14-36) U/L ALT (9-52) U/L Alkaline Phosphatase (38-126) U/L Total Protein (6.3-8.3) g/dL Albumin (3.5-5.0) g/dL Globulin (2.2-3.9) gm/dL Albumin/Globulin Ratio (1.0-2.1) Fluid Type Laboratory Results - last 24 hr 08/07/17 08/07/17 08/08/17 17:49 23:31 06:00 WBC RBC Hgb Hct MCV MCH MCHC RDW Plt Count MPV Neut % (Auto) Lymph % (Auto) [place] % (Auto) Eos % (Auto) Baso % (Auto) Neut # (Auto) Lymph # (Auto) [place] # (Auto) Sodium Potassium Chloride Carbon Dioxide Anion Gap BUN Creatinine Est GFR ( Amer) Est GFR (Non-Af Amer) POC Glucose (mg/dL) 83 76 69 Random Glucose Calcium Phosphorus Magnesium Total Bilirubin AST ALT Alkaline Phosphatase Total Protein Albumin Globulin Albumin/Globulin Ratio Fluid Type 08/08/17 08/08/17 08/08/17 06:03 06:05 06:07 WBC 5.0 RBC 2.90 L Hgb 8.4 L Hct 25.4 L MCV 87.8 MCH 29.0 MCHC 33.1 RDW 17.1 H Plt Count 228 MPV 8.7 Neut % (Auto) 74.0 Lymph % (Auto) 24.0 [place] % (Auto) 2.0 Eos % (Auto) 0.0 Baso % (Auto) 0.0 Neut # (Auto) 3.7 Lymph # (Auto) 1.2 [place] # (Auto) 0.1 Sodium 132 Potassium 3.5 L Chloride 91 L Carbon Dioxide 34 H Anion Gap 11 BUN 15 Creatinine 1.0 Est GFR ( Amer) > 60 Est GFR (Non-Af Amer) 55 POC Glucose (mg/dL) 99 Random Glucose 100 Calcium 8.4 L Phosphorus 3.4 Magnesium 1.5 L Total Bilirubin 0.5 AST 39 H ALT 16 Alkaline Phosphatase 105 Total Protein 7.8 Albumin 2.7 L Globulin 5.1 H Albumin/Globulin Ratio 0.5 L Fluid Type 08/08/17 08/08/17 12:24 16:16 WBC RBC Hgb Hct MCV MCH MCHC RDW Plt Count MPV Neut % (Auto) Lymph % (Auto) [place] % (Auto) Eos % (Auto) Baso % (Auto) Neut # (Auto) Lymph # (Auto) [place] # (Auto) Sodium Potassium Chloride Carbon Dioxide Anion Gap BUN Creatinine Est GFR ( Amer) Est GFR (Non-Af Amer) POC Glucose (mg/dL) 138 H Random Glucose Calcium Phosphorus Magnesium Total Bilirubin AST ALT Alkaline Phosphatase Total Protein Albumin Globulin Albumin/Globulin Ratio Fluid Type Spinal fluid Fingerstick Blood Sugar Results: 99 Review of Systems - Review of Systems Systems not reviewed;Unavailable: Altered Mental Status Assessment/Plan - Assessment and Plan (Free Text) Assessment: Pt is a 72F with new onset seizures. Neuro: New onset seizure (etiology unknown), hx of dementia Neurologist Dr. Cornejo/Josh on board * Bedside EEG showed waveform activity in temporal lobes - now investigating HSV related etiology * Recommend to repeat CTA of the head to evaluate the posterior cerebral artery. Vimpat 200mg/20ml IV BID Keppra 1000mg IV BID Dexamethasone 10 mg IV x 1 dose followed by 6 mg IV Q6H through 08/12/17 Valproic Acid 750mg IV Q12H added 08/08/17 Imaging: CT head negative for acute changes CTA Head/Neck shows no flow limiting cervical carotid stenosis or vessel occlusion, also patent vertebral arteries brain MRI shows no acute intracranial hemorrhage. Moderate chronic white matter the ischemic changes with scattered small basal nuclei, brainstem and left cerebellar lacunar type infarcts. Moderate to fairly significant generalized volume loss. MRA head showed patent anterior circulation. Right distal posterior cerebral artery is not well visualized which may be artifactual however a occlusion cannot be excluded. Patent left posterior cerebral artery, vertebral and basilar arteries. MRA neck showed no evidence of hemodynamically significant stenosis in the internal carotid arteries. Patent vertebral arteries. follow up EEG ID: [id number] Septic Arthirtis; s/p arthroscopic irrigation and debridement of left knee on 07/19/[address] Avina on board Ortho Dr Quintero on board * Will evaluate patient and possibly remove sutures from I&D on 07/19/17 Gentamycin 70mg IV QD * Held 08/07/27 dose due to high genta trough. Will get random genta level. * last dose on 08/08/17 rifampin 300mg PO TID Ceftriaxone 2 gram IV Q24H started 08/08/17 Acyclovir 600 mg IV Q8H added 08/08/17 Vancomycin 750mg IV Q12H Lumbar Tap Performed 08/08/17 * Tube 1: cell count with differential, protein, glucose, Gram Stain, Cryptococcal Ag, Bacterial Ag, VDRL * Tube 2: HSV 1 PCR, HSV 2 PCR, AFB PCR, WNV PCR, Lyme PCR * Tube 3: Bacterial Culture, AFB Smear and Culture, Fungal Smear and Culture, HSV Culture, Cytology, Anti-NMDAR Antibodies to look for Z-Ezuuml-C-Aspartate Receptor Abs lactate NORMAL NEGATIVE for flu Blood culture NEGATIVE up to date Renal: Hyponatremia 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 Hyponatremia not improving with tolvaptan with urine osm still high; likely due to decreased tolvaptan levels while on rifampin; will continue with tolvaptan 30 mg daily Aldactone 12.5 mg PO BID * Held today due to low BP Endo: SIADH (etiology unclear), DM Nephrology, Dr Moser on board Hyponatremia not improving with tolvaptan with urine osm still high; likely due to decreased tolvaptan levels while on rifampin; will continue with tolvaptan 30 mg daily Hypoglycemic protocol Cardio: Ischemic cardiomyopathy with low EF, HTN, paroxymal A-Fib, s/p CABG Probnp [id number] Cozaar 25mg PO QD cardizem 10mg IVP Lopressor 50mg PO BID Lasix 20mg IV BID * Will switch to PO on 08/09/17 Crestor 40mg PO HS CPK NORMAL Lipid Profile NORMAL ECHO bubble study - no ASD seen Pulm: hx of COPD extubated 08/03/17 duoneb INH QID ABG ordered Electrolytes: hypokalemia resolved, hypomagnesemia, hyponatremia Replete MgSulfate to keep Mg above 2.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 Hyponatremia not improving with tolvaptan with urine osm still high; likely due to decreased tolvaptan levels while on rifampin; will continue with tolvaptan 30 mg daily GI: no active issues NG tube feeds Ppx: Heparin 5,000 units protonix 40mg PO QD <Kameron Simpson - Last Filed: 08/08/17 17:04> CCU Objective - Vital Signs / Intake & Output Intake and Output (Last 8hrs): Intake & Output 08/08/17 08/08/17 08/08/17 06:59 14:59 22:59 Intake Total 410 Output Total 690 Balance -280 Intake: Intake, IV Amount 250 R PICC line 250 Tube Feeding 160 Output: Urine 690 Urethral (Castañeda) 690 - Medications Active Medications: Active Medications Generic Name Dose Route Start Last Admin Trade Name Freq PRN Reason Stop Dose Admin Acetaminophen 650 mg 08/05/17 10:23 08/06/17 20:57 Tylenol 650mg/20.3ml Solution Ud PO 650 mg Q6H PRN Administration Temperature >100.4 Albuterol/Ipratropium 3 ml 08/02/17 08:00 08/08/17 13:34 Duoneb 3 Mg/0.5 Mg (3 Ml) Ud INH Not Given RQ6 KODAK Clotrimazole 1 gm 08/04/17 10:00 08/08/17 10:38 Lotrimin 1% TOP 1 applic BID KODAK Administration Dexamethasone 6 mg 08/08/17 22:00 Decadron Inj IVP Q6H KODAK Dextrose 0 ml 08/03/17 17:06 08/03/17 17:55 Dextrose 50% Inj IV 50 ml STAT PRN Administration Hypoglycemia Protocol Protocol Heparin Sodium (Porcine) 5,000 units 08/05/17 22:00 08/07/17 21:31 Heparin SC 5,000 units Q12 KODAK Administration Lacosamide 100 mg/ Sodium 110 mls @ 110 mls/hr 08/03/17 22:00 08/08/17 10:42 Chloride IV 110 mls/hr Q12H KODAK Administration Vancomycin HCl 150 mls @ 100 mls/hr 08/06/17 13:00 08/08/17 14:23 Vancocin 750mg/Ns 150 Ml IVPB 100 mls/hr Q12H KODAK Administration Levetiracetam 1,000 mg/ Sodium 110 mls @ 420 mls/hr 08/07/17 14:00 08/08/17 15:18 Chloride IVPB 420 mls/hr Q12H KODAK Administration Acyclovir 600 mg/ Sodium 100 mls @ 100 mls/hr 08/08/17 20:00 Chloride IV 08/29/17 23:59 Q8H [facility] Valproate Sodium 750 mg/ 107.5 mls @ 100 mls/hr 08/09/17 00:00 Sodium Chloride IVPB Q12H [facility] Ceftriaxone Sodium 2 gm/ 100 mls @ 100 mls/hr 08/08/17 16:00 Sodium Chloride IVPB Q24H [facility] Lactobacillus Acidophilus 1 cap 08/02/17 10:00 08/08/17 10:34 Bacid Acidophilus PO 1 cap BID [facility] Administration Losartan Potassium 25 mg 08/02/17 10:00 08/08/17 10:37 Cozaar PO 25 mg DAILY KODAK Administration Metoprolol Tartrate 50 mg 08/02/17 10:00 08/08/17 10:34 Lopressor PO 50 mg BID KODAK Administration Metoprolol Tartrate 5 mg 08/03/17 09:15 08/08/17 15:16 Lopressor IVP 5 mg Q6H KODAK Administration Rifampin 300 mg 08/02/17 10:00 08/08/17 14:25 Rifampin Cap PO 300 mg TID KODAK Administration Rosuvastatin Calcium 40 mg 08/03/17 08:34 08/07/17 21:31 Crestor PO 40 mg HS KODKA Administration Spironolactone 25 mg 08/07/17 10:00 08/08/17 10:34 Aldactone PO 25 mg BID KODAK Administration - Patient Studies Lab Studies: Microbiology Studies 08/04/17 02:20 Blood Culture - Preliminary Blood-Thru Central Line NO GROWTH AFTER 4 DAYS 08/04/17 02:20 Blood Culture - Preliminary Blood-Thru Central Line NO GROWTH AFTER 4 DAYS 08/05/17 Unknown Urine Culture - Final Urine,[place] Yeast Species Lab Studies 08/08/17 08/08/17 08/08/17 Range/Units 16:16 12:24 06:07 WBC 5.0 (4.8-10.8) K/uL RBC 2.90 L (3.80-5.20) Mil/uL Hgb 8.4 L (11.0-16.0) g/dL Hct 25.4 L (34.0-47.0) % MCV 87.8 (81.0-99.0) fL MCH 29.0 (27.0-31.0) pg MCHC 33.1 (33.0-37.0) g/dL RDW 17.1 H (11.5-14.5) % Plt Count 228 (130-400) K/uL MPV 8.7 (7.2-11.7) fL Neut % (Auto) 74.0 (50.0-75.0) % Lymph % (Auto) 24.0 (20.0-40.0) % [place] % (Auto) 2.0 (0.0-10.0) % Eos % (Auto) 0.0 (0.0-4.0) % Baso % (Auto) 0.0 (0.0-2.0) % Neut # (Auto) 3.7 (1.8-7.0) K/uL Lymph # (Auto) 1.2 (1.0-4.3) K/uL [place] # (Auto) 0.1 (0.0-0.8) K/uL Sodium (132-148) mmol/L Potassium (3.6-5.2) mmol/L Chloride (98-107) mmol/L Carbon Dioxide (22-30) mmol/L Anion Gap (10-20) BUN (7-17) mg/dL Creatinine (0.7-1.2) mg/dL Est GFR ( Amer) Est GFR (Non-Af Amer) POC Glucose (mg/dL) 138 H (65-110) mg/dL Random Glucose (65-105) mg/dL Calcium (8.6-10.4) mg/dl Phosphorus (2.5-4.5) mg/dL Magnesium (1.6-2.3) mg/dL Total Bilirubin (0.2-1.3) mg/dL AST (14-36) U/L ALT (9-52) U/L Alkaline Phosphatase (38-126) U/L Total Protein (6.3-8.3) g/dL Albumin (3.5-5.0) g/dL Globulin (2.2-3.9) gm/dL Albumin/Globulin Ratio (1.0-2.1) Fluid Type Spinal fluid 08/08/17 08/08/17 08/08/17 Range/Units 06:05 06:03 06:00 WBC (4.8-10.8) K/uL RBC (3.80-5.20) Mil/uL Hgb (11.0-16.0) g/dL Hct (34.0-47.0) % MCV (81.0-99.0) fL MCH (27.0-31.0) pg MCHC (33.0-37.0) g/dL RDW (11.5-14.5) % Plt Count (130-400) K/uL MPV (7.2-11.7) fL Neut % (Auto) (50.0-75.0) % Lymph % (Auto) (20.0-40.0) % [place] % (Auto) (0.0-10.0) % Eos % (Auto) (0.0-4.0) % Baso % (Auto) (0.0-2.0) % Neut # (Auto) (1.8-7.0) K/uL Lymph # (Auto) (1.0-4.3) K/uL [place] # (Auto) (0.0-0.8) K/uL Sodium 132 (132-148) mmol/L Potassium 3.5 L (3.6-5.2) mmol/L Chloride 91 L (98-107) mmol/L Carbon Dioxide 34 H (22-30) mmol/L Anion Gap 11 (10-20) BUN 15 (7-17) mg/dL Creatinine 1.0 (0.7-1.2) mg/dL Est GFR ( Amer) > 60 Est GFR (Non-Af Amer) 55 POC Glucose (mg/dL) 99 69 (65-110) mg/dL Random Glucose 100 (65-105) mg/dL Calcium 8.4 L (8.6-10.4) mg/dl Phosphorus 3.4 (2.5-4.5) mg/dL Magnesium 1.5 L (1.6-2.3) mg/dL Total Bilirubin 0.5 (0.2-1.3) mg/dL AST 39 H (14-36) U/L ALT 16 (9-52) U/L Alkaline Phosphatase 105 (38-126) U/L Total Protein 7.8 (6.3-8.3) g/dL Albumin 2.7 L (3.5-5.0) g/dL Globulin 5.1 H (2.2-3.9) gm/dL Albumin/Globulin Ratio 0.5 L (1.0-2.1) Fluid Type 08/07/17 08/07/17 Range/Units 23:31 17:49 WBC (4.8-10.8) K/uL RBC (3.80-5.20) Mil/uL Hgb (11.0-16.0) g/dL Hct (34.0-47.0) % MCV (81.0-99.0) fL MCH (27.0-31.0) pg MCHC (33.0-37.0) g/dL RDW (11.5-14.5) % Plt Count (130-400) K/uL MPV (7.2-11.7) fL Neut % (Auto) (50.0-75.0) % Lymph % (Auto) (20.0-40.0) % [place] % (Auto) (0.0-10.0) % Eos % (Auto) (0.0-4.0) % Baso % (Auto) (0.0-2.0) % Neut # (Auto) (1.8-7.0) K/uL Lymph # (Auto) (1.0-4.3) K/uL [place] # (Auto) (0.0-0.8) K/uL Sodium (132-148) mmol/L Potassium (3.6-5.2) mmol/L Chloride (98-107) mmol/L Carbon Dioxide (22-30) mmol/L Anion Gap (10-20) BUN (7-17) mg/dL Creatinine (0.7-1.2) mg/dL Est GFR ( Amer) Est GFR (Non-Af Amer) POC Glucose (mg/dL) 76 83 (65-110) mg/dL Random Glucose (65-105) mg/dL Calcium (8.6-10.4) mg/dl Phosphorus (2.5-4.5) mg/dL Magnesium (1.6-2.3) mg/dL Total Bilirubin (0.2-1.3) mg/dL AST (14-36) U/L ALT (9-52) U/L Alkaline Phosphatase (38-126) U/L Total Protein (6.3-8.3) g/dL Albumin (3.5-5.0) g/dL Globulin (2.2-3.9) gm/dL Albumin/Globulin Ratio (1.0-2.1) Fluid Type Laboratory Results - last 24 hr 08/07/17 08/07/17 08/08/17 17:49 23:31 06:00 WBC RBC Hgb Hct MCV MCH MCHC RDW Plt Count MPV Neut % (Auto) Lymph % (Auto) [place] % (Auto) Eos % (Auto) Baso % (Auto) Neut # (Auto) Lymph # (Auto) [place] # (Auto) Sodium Potassium Chloride Carbon Dioxide Anion Gap BUN Creatinine Est GFR ( Amer) Est GFR (Non-Af Amer) POC Glucose (mg/dL) 83 76 69 Random Glucose Calcium Phosphorus Magnesium Total Bilirubin AST ALT Alkaline Phosphatase Total Protein Albumin Globulin Albumin/Globulin Ratio Fluid Type 08/08/17 08/08/17 08/08/17 06:03 06:05 06:07 WBC 5.0 RBC 2.90 L Hgb 8.4 L Hct 25.4 L MCV 87.8 MCH 29.0 MCHC 33.1 RDW 17.1 H Plt Count 228 MPV 8.7 Neut % (Auto) 74.0 Lymph % (Auto) 24.0 [place] % (Auto) 2.0 Eos % (Auto) 0.0 Baso % (Auto) 0.0 Neut # (Auto) 3.7 Lymph # (Auto) 1.2 [place] # (Auto) 0.1 Sodium 132 Potassium 3.5 L Chloride 91 L Carbon Dioxide 34 H Anion Gap 11 BUN 15 Creatinine 1.0 Est GFR ( Amer) > 60 Est GFR (Non-Af Amer) 55 POC Glucose (mg/dL) 99 Random Glucose 100 Calcium 8.4 L Phosphorus 3.4 Magnesium 1.5 L Total Bilirubin 0.5 AST 39 H ALT 16 Alkaline Phosphatase 105 Total Protein 7.8 Albumin 2.7 L Globulin 5.1 H Albumin/Globulin Ratio 0.5 L Fluid Type 08/08/17 08/08/17 12:24 16:16 WBC RBC Hgb Hct MCV MCH MCHC RDW Plt Count MPV Neut % (Auto) Lymph % (Auto) [place] % (Auto) Eos % (Auto) Baso % (Auto) Neut # (Auto) Lymph # (Auto) [place] # (Auto) Sodium Potassium Chloride Carbon Dioxide Anion Gap BUN Creatinine Est GFR ( Amer) Est GFR (Non-Af Amer) POC Glucose (mg/dL) 138 H Random Glucose Calcium Phosphorus Magnesium Total Bilirubin AST ALT Alkaline Phosphatase Total Protein Albumin Globulin Albumin/Globulin Ratio Fluid Type Spinal fluid Attending/Attestation - Attestation I have personally seen and examined this patient.: Yes I have fully participated in the care of the patient.: Yes I have reviewed all pertinent clinical information: Yes Notes (Text): 08/08/17 16:57 I have seen and examined the patient. Medical records, lab studies, and imaging were reviewed by me and a management plan was formulated on multidisciplinary rounds with resident Dr. Nogueira. I agree with their documented assessment and plan. The patient is still having clinical seizure like activity and is still not alert. Performed lumbar tap, no significant ICP was able to be measured, CSF sent off for studies. Starting Acyclovir for possible herpes encephalitis. 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 Moreno. Critical Care Time 35 minutes. Multi-disciplinary rounds were performed with house staff, nursing, speech therapy, respiratory therapy, pharmacy and nutrition with integrated input from the primary team/attending and other consulting services. The documented time is cumulative and includes review of patient data/exams/labs/chart review and examination of the patient on rounds and throughout the day; time is exclusive of any procedures or teaching time. 08/08/17 16:59
[2017-08-08 17:04] LABS: CSF APPEARANCE CLEAR/COLORLESS (CLEAR); CSF VOLUME 4 mL (0-1)
[2017-08-08] MEDS: cefTRIAXone 2 GM in Sodium Chloride 0.9% 100 ML IVPB SCH (17:19)
[2017-08-08 17:46] LABS: N MENINGITIS ACY/W135 NEGATIVE (NEGATIVE); N MENINGITIS B/ECOLI K1 NEGATIVE (NEGATIVE); STREP PNEUMONIAE NEGATIVE (NEGATIVE); STREPTOCOCCUS B NEGATIVE (NEGATIVE)
--- NOTE | 2017-08-08 17:51 | CP.PCM.PN ---
Subjective - Date & Time of Evaluation Date of Evaluation: 08/08/17 Time of Evaluation: 17:51 - Subjective Subjective: AFEBRILE, CLINICALLY SAME . EVENTS NOTED. EEG -PLEDS NOTED TEMPORAL LOBE- PER NEUROLOGY. PT S/P LP TODAY STARTED ON IV ACYCLOVIR IV 08/08/17 PER NEUROLOGY CASE DISCUSSED WITH HOSPITALIST DR EDINSON HILTON . ADD IV ROCEPHIN 2GM IV Q 24HRLY. WILL START IV DEXAMETHASONE 10MG IV LD- F/U -6MG Q6HRLY X 4DAYS Objective - Vital Signs/Intake and Output Vital Signs (last 24 hours): Temp Pulse Resp BP Pulse Ox 97.6 F 78 15 126/61 100 08/08/17 04:00 08/08/17 06:07 08/08/17 06:07 08/08/17 10:33 08/08/17 06:07 Intake and Output: 08/08/17 08/08/17 06:59 18:59 Intake Total 640 Output Total 1055 Balance -415 - Medications Medications: Current Medications Acetaminophen (Tylenol 650mg/20.3ml Solution Ud) 650 mg PO Q6H PRN PRN Reason: Temperature >100.4 Last Admin: 08/06/17 20:57 Dose: 650 mg Albuterol/Ipratropium (Duoneb 3 Mg/0.5 Mg (3 Ml) Ud) 3 ml INH RQ6 [facility] Last Admin: 08/08/17 13:34 Dose: Not Given Clotrimazole (Lotrimin 1%) 1 gm TOP BID [facility] Last Admin: 08/08/17 17:18 Dose: 1 applic Dexamethasone (Decadron Inj) 6 mg IVP Q6H [facility] Dextrose (Dextrose 50% Inj) 0 ml IV STAT PRN; Protocol PRN Reason: Hypoglycemia Protocol Last Admin: 08/03/17 17:55 Dose: 50 ml Heparin Sodium (Porcine) (Heparin) 5,000 units SC Q12 [facility] Last Admin: 08/07/17 21:31 Dose: 5,000 units Lacosamide 100 mg/ Sodium (Chloride) 110 mls @ 110 mls/hr IV Q12H [facility] Last Admin: 08/08/17 10:42 Dose: 110 mls/hr Vancomycin HCl (Vancocin 750mg/Ns 150 Ml) 150 mls @ 100 mls/hr IVPB Q12H [facility] Last Admin: 08/08/17 14:23 Dose: 100 mls/hr Levetiracetam 1,000 mg/ Sodium (Chloride) 110 mls @ 420 mls/hr IVPB Q12H [facility] Last Admin: 08/08/17 15:18 Dose: 420 mls/hr Acyclovir 600 mg/ Sodium (Chloride) 100 mls @ 100 mls/hr IV Q8H [facility] Stop: 08/29/17 23:59 Valproate Sodium 750 mg/ (Sodium Chloride) 107.5 mls @ 100 mls/hr IVPB Q12H [facility] Ceftriaxone Sodium 2 gm/ (Sodium Chloride) 100 mls @ 100 mls/hr IVPB Q24H [facility] Last Admin: 08/08/17 17:19 Dose: 100 mls/hr Lactobacillus Acidophilus (Bacid Acidophilus) 1 cap PO BID [facility] Last Admin: 08/08/17 17:19 Dose: 1 cap Losartan Potassium (Cozaar) 25 mg PO DAILY [facility] Last Admin: 08/08/17 10:37 Dose: 25 mg Metoprolol Tartrate (Lopressor) 50 mg PO BID [facility] Last Admin: 08/08/17 17:18 Dose: 50 mg Metoprolol Tartrate (Lopressor) 5 mg IVP Q6H [facility] Last Admin: 08/08/17 15:16 Dose: 5 mg Rifampin (Rifampin Cap) 300 mg PO TID [facility] Last Admin: 08/08/17 17:19 Dose: 300 mg Rosuvastatin Calcium (Crestor) 40 mg PO HS [facility] Last Admin: 08/07/17 21:31 Dose: 40 mg Spironolactone (Aldactone) 25 mg PO BID [facility] Last Admin: 08/08/17 10:34 Dose: 25 mg - Labs Labs: 08/08/17 06:07 08/08/17 06:05 PT 14.6 SECONDS (9.7-12.2) H 08/01/17 19:55 INR 1.3 08/01/17 19:55 APTT 47 SECONDS (21-34) H 08/01/17 19:55 - Constitutional Appears: No Acute Distress - Head Exam Head Exam: NORMAL INSPECTION - Eye Exam Pupil Exam: Unequal - ENT Exam ENT Exam: Mucous Membranes Dry - Neck Exam Neck Exam: Normal Inspection - Respiratory Exam Respiratory Exam: Decreased Breath Sounds - Cardiovascular Exam Cardiovascular Exam: REGULAR RHYTHM, +S1, +S2 - GI/Abdominal Exam GI & Abdominal Exam: Soft, Normal Bowel Sounds - Extremities Exam Extremities Exam: absent: Calf Tenderness, Pedal Edema - Neurological Exam Neurological Exam: Altered - Psychiatric Exam Psychiatric exam: Flat Affect - Skin Skin Exam: Warm Assessment and Plan (1) New onset seizure Status: Acute (2) Hypokalemia Status: Acute (3) Hyponatremia Status: Acute (4) PAF (paroxysmal atrial fibrillation) Status: Acute (5) Septic arthritis Status: Chronic (6) Osteomyelitis of left knee region Status: Acute (7) H/O mitral valve replacement Status: Chronic (8) Diabetes mellitus Status: Chronic - Assessment and Plan (Free Text) Assessment: NEW ONSET OF SEIZURES - R/O MENINGO ENCEPHALITIS VIRAL VS BACTERIAL VS EMBOLIC. - MSSA SEPTIC ARTHRITIS LEFT KNEE/WITH PSEUDOGOUT /? OSTEOMYLITIS -S/P ARTHROSCOPIC IRRIGATION/DEBRIDEMENT, LEFT KNEE ARTHROSCOPIC PATELLAR MEDIAL /LATERAL MENISCECTOMY AND EXTENSIVE SYNOVECTOMY/CHONDROPLASTY TROCHLEA 07/19/17 - PROSTHETIC MITRAL- VALVE ENDOCARDITIS.(+VE VEGETATIONS could NOT BE RULED OUT ON 2-d ECHO ). -HX OF CABG /MVR. -CONGESTIVE HEART FAILURE. -PAROXSYSMAL ATRIAL FIBRILLATION. -ELECTROLYTE IMBALANCE -SIADH -DM-2 -RHEUMATOID ARTHRITIS/OSTEOPOROSIS BY HISTORY. PLAN . STARTED ON IV ACYCLOVIR 600MG IV Q 8HRLY 08/08/17 .ADD IV ROCEPHIN 2GM IV Q 24HRLY. 08/08/17 WILL START IV DEXAMETHASONE 10MG IV LD- F/U -6MG Q6HRLY X 4DAYS 08/08/17. CONTINUE IV VANCOMYCIN 1GM LD , F/U BY 750MG IV Q 12HRLY 08/03/17 CONTINUE PO RIFAMPIN 300MG PO TID. DC GENTAMICIN. NEURO W/U IN PROGRESS. F/U CSF STUDIES DISCUSSED W DR PADMA HILTON. PROGNOSIS GUARDED.
[2017-08-08] MEDS ORDERED: Divalproex 250 mg DR Tab PO SCH (18:00)
--- NOTE | 2017-08-08 21:36 | CP.PCM.PN ---
Subjective - Date & Time of Evaluation Date of Evaluation: 08/08/17 Time of Evaluation: 13:00 - Subjective Subjective: Mental status not improving; was for LP today; Objective - Vital Signs/Intake and Output Vital Signs (last 24 hours): Temp Pulse Resp BP Pulse Ox 98.1 F 72 20 120/75 100 08/08/17 16:00 08/08/17 20:59 08/08/17 20:59 08/08/17 20:59 08/08/17 20:59 Intake and Output: 08/08/17 08/09/17 18:59 06:59 Intake Total 1290 20 Output Total 800 90 Balance 490 -70 - Medications Medications: Current Medications Acetaminophen (Tylenol 650mg/20.3ml Solution Ud) 650 mg PO Q6H PRN PRN Reason: Temperature >100.4 Last Admin: 08/06/17 20:57 Dose: 650 mg Albuterol/Ipratropium (Duoneb 3 Mg/0.5 Mg (3 Ml) Ud) 3 ml INH RQ6 [facility] Last Admin: 08/08/17 21:18 Dose: 3 ml Clotrimazole (Lotrimin 1%) 1 gm TOP BID [facility] Last Admin: 08/08/17 17:18 Dose: 1 applic Dexamethasone (Decadron Inj) 6 mg IVP Q6H [facility] Stop: 08/12/17 22:00 Dextrose (Dextrose 50% Inj) 0 ml IV STAT PRN; Protocol PRN Reason: Hypoglycemia Protocol Last Admin: 08/03/17 17:55 Dose: 50 ml Heparin Sodium (Porcine) (Heparin) 5,000 units SC Q12 [facility] Last Admin: 08/07/17 21:31 Dose: 5,000 units Lacosamide 100 mg/ Sodium (Chloride) 110 mls @ 110 mls/hr IV Q12H [facility] Last Admin: 08/08/17 10:42 Dose: 110 mls/hr Vancomycin HCl (Vancocin 750mg/Ns 150 Ml) 150 mls @ 100 mls/hr IVPB Q12H [facility] Last Admin: 08/08/17 14:23 Dose: 100 mls/hr Levetiracetam 1,000 mg/ Sodium (Chloride) 110 mls @ 420 mls/hr IVPB Q12H [facility] Last Admin: 08/08/17 15:18 Dose: 420 mls/hr Acyclovir 600 mg/ Sodium (Chloride) 100 mls @ 100 mls/hr IV Q8H [facility] Stop: 08/29/17 23:59 Valproate Sodium 750 mg/ (Sodium Chloride) 107.5 mls @ 100 mls/hr IVPB Q12H [facility] Ceftriaxone Sodium 2 gm/ (Sodium Chloride) 100 mls @ 100 mls/hr IVPB Q24H [facility] Last Admin: 08/08/17 17:19 Dose: 100 mls/hr Lactobacillus Acidophilus (Bacid Acidophilus) 1 cap PO BID [facility] Last Admin: 08/08/17 17:19 Dose: 1 cap Losartan Potassium (Cozaar) 25 mg PO DAILY [facility] Last Admin: 08/08/17 10:37 Dose: 25 mg Metoprolol Tartrate (Lopressor) 50 mg PO BID [facility] Last Admin: 08/08/17 17:18 Dose: 50 mg Metoprolol Tartrate (Lopressor) 5 mg IVP Q6H [facility] Last Admin: 08/08/17 15:16 Dose: 5 mg Rifampin (Rifampin Cap) 300 mg PO TID [facility] Last Admin: 08/08/17 17:19 Dose: 300 mg Rosuvastatin Calcium (Crestor) 40 mg PO HS [facility] Last Admin: 08/07/17 21:31 Dose: 40 mg Spironolactone (Aldactone) 25 mg PO BID [facility] Last Admin: 08/08/17 10:34 Dose: 25 mg - Labs Labs: 08/08/17 06:07 08/08/17 06:05 PT 14.6 SECONDS (9.7-12.2) H 08/01/17 19:55 INR 1.3 08/01/17 19:55 APTT 47 SECONDS (21-34) H 08/01/17 19:55 - Constitutional Appears: Non-toxic, No Acute Distress - Eye Exam Eye Exam: absent: Scleral icterus - ENT Exam ENT Exam: Mucous Membranes Moist - Respiratory Exam Respiratory Exam: Clear to Ausculation Bilateral. absent: Respiratory Distress - Cardiovascular Exam Cardiovascular Exam: RRR, +S1, +S2 - GI/Abdominal Exam GI & Abdominal Exam: Soft. absent: Distended, Tenderness - Extremities Exam Additional comments: no leg edema; - Neurological Exam Neurological Exam: absent: Alert Additional comments: somnolent but arousable; - Psychiatric Exam Psychiatric exam: absent: Agitated - Skin Skin Exam: Warm. absent: Cyanosis Assessment and Plan (1) Hyponatremia Assessment & Plan: Improved on lasix; holding diuretics due to hypotension; Status: Acute (2) CHF (congestive heart failure) Assessment & Plan: Had been on IV lasix 20 mg q12h and aldactone 25 mg bid; now with mild hypotension and mild increase in serum creatinine; hold diuretics for now; continue B-meredith and ARB; Status: Chronic (3) Septic arthritis Status: Chronic (4) Hypokalemia Assessment & Plan: Improved; recommend to keep K ~ 4.0 in the setting of paraoxysmal Afib and severe systolic dysfunction; Status: Acute
[2017-08-08] MEDS: Dexamethasone 4 mg/1 ml IVP SCH (22:22)
[2017-08-09] MEDS: Valproate 750 MG in Sodium Chloride 0.9% 100 ML IVPB SCH ×2 (00:03→11:44)
[2017-08-09] MEDS: Vancomycin 750mg/NS 150 ml 150 ML IVPB SCH ×2 (01:34→13:11)
[2017-08-09] MEDS: Albuterol-Ipratrop 3 mg / 0.5 (3 ml) UD INH SCH ×4 (01:46→19:28)
[2017-08-09] MEDS: levETIRAcetam 1,000 MG in Sodium Chloride 0.9% 100 ML IVPB SCH ×2 (02:04→14:24)
[2017-08-09] MEDS: Metoprolol 1 mg/ml Inj IVP SCH ×4 (03:15→22:12)
[2017-08-09] MEDS: Dexamethasone 4 mg/1 ml IVP SCH ×4 (06:47→22:04)
[2017-08-09] MEDS ORDERED: Sodium Chloride 0.9% 1,000 ML IV ONE (06:55)
--- NOTE | 2017-08-09 06:55 | CP.PCM.PN ---
Subjective - Date & Time of Evaluation Date of Evaluation: 08/09/17 Time of Evaluation: 06:51 - Subjective Subjective: Ms. Mobley was seen and examined at the bedside in ICU. She remains awake, non - verbal, unable to follow simple commands, moves her left upper extremity spontaneously with right upper extremity remains flaccid. Her pupils are dilated size 4 mm but sluggish to react to light accommodation. Her bilateral lower extremities moves in response to tactile stimuli. LP was done yesterday. Her blood pressure is low below 90 systolic, ICU design engineering manager made aware with order. Objective - Vital Signs/Intake and Output Vital Signs (last 24 hours): Temp Pulse Resp BP Pulse Ox 98.4 F 84 21 86/50 L 100 08/09/17 00:00 08/09/17 06:13 08/09/17 06:13 08/09/17 06:13 08/09/17 06:13 Intake and Output: 08/08/17 08/09/17 18:59 06:59 Intake Total 1290 720 Output Total 800 440 Balance 490 280 - Medications Medications: Current Medications Acetaminophen (Tylenol 650mg/20.3ml Solution Ud) 650 mg PO Q6H PRN PRN Reason: Temperature >100.4 Last Admin: 08/06/17 20:57 Dose: 650 mg Albuterol/Ipratropium (Duoneb 3 Mg/0.5 Mg (3 Ml) Ud) 3 ml INH RQ6 [facility] Last Admin: 08/09/17 01:46 Dose: 3 ml Clotrimazole (Lotrimin 1%) 1 gm TOP BID [facility] Last Admin: 08/08/17 17:18 Dose: 1 applic Dexamethasone (Decadron Inj) 6 mg IVP Q6H [facility] Stop: 08/12/17 22:00 Last Admin: 08/09/17 06:47 Dose: 6 mg Dextrose (Dextrose 50% Inj) 0 ml IV STAT PRN; Protocol PRN Reason: Hypoglycemia Protocol Last Admin: 08/03/17 17:55 Dose: 50 ml Heparin Sodium (Porcine) (Heparin) 5,000 units SC Q12 [facility] Last Admin: 08/07/17 21:31 Dose: 5,000 units Lacosamide 100 mg/ Sodium (Chloride) 110 mls @ 110 mls/hr IV Q12H [facility] Last Admin: 08/08/17 22:46 Dose: 110 mls/hr Vancomycin HCl (Vancocin 750mg/Ns 150 Ml) 150 mls @ 100 mls/hr IVPB Q12H [facility] Last Admin: 08/09/17 01:34 Dose: 100 mls/hr Levetiracetam 1,000 mg/ Sodium (Chloride) 110 mls @ 420 mls/hr IVPB Q12H [facility] Last Admin: 08/09/17 02:04 Dose: 420 mls/hr Acyclovir 600 mg/ Sodium (Chloride) 100 mls @ 100 mls/hr IV Q8H [facility] Stop: 08/29/17 23:59 Last Admin: 08/09/17 03:48 Dose: 100 mls/hr Valproate Sodium 750 mg/ (Sodium Chloride) 107.5 mls @ 100 mls/hr IVPB Q12H [facility] Last Admin: 08/09/17 00:03 Dose: 100 mls/hr Ceftriaxone Sodium 2 gm/ (Sodium Chloride) 100 mls @ 100 mls/hr IVPB Q24H [facility] Last Admin: 08/08/17 17:19 Dose: 100 mls/hr Lactobacillus Acidophilus (Bacid Acidophilus) 1 cap PO BID [facility] Last Admin: 08/08/17 17:19 Dose: 1 cap Losartan Potassium (Cozaar) 25 mg PO DAILY [facility] Last Admin: 08/08/17 10:37 Dose: 25 mg Metoprolol Tartrate (Lopressor) 50 mg PO BID [facility] Last Admin: 08/08/17 17:18 Dose: 50 mg Metoprolol Tartrate (Lopressor) 5 mg IVP Q6H [facility] Last Admin: 08/09/17 03:15 Dose: Not Given Rifampin (Rifampin Cap) 300 mg PO TID [facility] Last Admin: 08/08/17 17:19 Dose: 300 mg Rosuvastatin Calcium (Crestor) 40 mg PO HS [facility] Last Admin: 08/08/17 22:04 Dose: 40 mg Spironolactone (Aldactone) 25 mg PO BID [facility] Last Admin: 08/08/17 10:34 Dose: 25 mg - Labs Labs: 08/08/17 06:07 08/08/17 06:05 PT 14.6 SECONDS (9.7-12.2) H 08/01/17 19:55 INR 1.3 08/01/17 19:55 APTT 47 SECONDS (21-34) H 08/01/17 19:55 - Constitutional Appears: No Acute Distress - Head Exam Head Exam: NORMAL INSPECTION - Eye Exam Pupil Exam: Mydriatic Additional comments: 4 mm. - Neurological Exam Neurological Exam: Awake Neuro motor strength exam: Left Upper Extremity: 3, Right Upper Extremity: 0, Left Lower Extremity: 0, Right Lower Extremity: 0 Additional comments: Neurological unchanged from previous examination. Assessment and Plan (1) Seizure Assessment & Plan: Case discussed with Dr. Moreno, continue all current medical regimen. Pending blood results for herpes encephalitis. Status: Acute
[2017-08-09 07:40] LABS: ALB/GLOB RATIO 0.5 (1.0-2.1); ALBUMIN 2.4 g/dL (3.5-5.0); ALT/SGPT < 6 U/L (9-52); AST/SGOT 27 U/L (14-36); BLOOD UREA NITROGEN 20 mg/dL (7-17); CALCIUM 8.4 mg/dl (8.6-10.4); GFR AFRICAN-AMERICAN 59; GFR NON-AFRICAN AMERICAN 49; MAGNESIUM 1.5 mg/dL (1.6-2.3)
[2017-08-09 07:50] LABS: MEAN CELL VOLUME 87.6 fL (81.0-99.0); MEAN CORPUSCULAR HEMOGLOBIN 29.2 pg (27.0-31.0); MEAN CORPUSCULAR HGB CONC 33.3 g/dL (33.0-37.0); MEAN PLATELET VOLUME 8.7 fL (7.2-11.7); RBC 2.74 Mil/uL (3.80-5.20); RED CELL DISTRIBUTION WIDTH 17.5 % (11.5-14.5); WHITE BLOOD COUNT 4.5 K/uL (4.8-10.8)
--- NOTE | 2017-08-09 08:09 | CP.PCM.PN ---
Subjective - Date & Time of Evaluation Date of Evaluation: 08/09/17 Time of Evaluation: 07:35 - Subjective Subjective: no new clinical change. Objective - Vital Signs/Intake and Output Vital Signs (last 24 hours): Temp Pulse Resp BP Pulse Ox 98.4 F 84 21 86/50 L 100 08/09/17 00:00 08/09/17 06:13 08/09/17 06:13 08/09/17 06:13 08/09/17 06:13 Intake and Output: 08/09/17 08/09/17 06:59 18:59 Intake Total 720 Output Total 440 Balance 280 - Medications Medications: Current Medications Acetaminophen (Tylenol 650mg/20.3ml Solution Ud) 650 mg PO Q6H PRN PRN Reason: Temperature >100.4 Last Admin: 08/06/17 20:57 Dose: 650 mg Albuterol/Ipratropium (Duoneb 3 Mg/0.5 Mg (3 Ml) Ud) 3 ml INH RQ6 [facility] Last Admin: 08/09/17 08:01 Dose: 3 ml Clotrimazole (Lotrimin 1%) 1 gm TOP BID [facility] Last Admin: 08/08/17 17:18 Dose: 1 applic Dexamethasone (Decadron Inj) 6 mg IVP Q6H [facility] Stop: 08/12/17 22:00 Last Admin: 08/09/17 06:47 Dose: 6 mg Dextrose (Dextrose 50% Inj) 0 ml IV STAT PRN; Protocol PRN Reason: Hypoglycemia Protocol Last Admin: 08/03/17 17:55 Dose: 50 ml Heparin Sodium (Porcine) (Heparin) 5,000 units SC Q12 [facility] Last Admin: 08/07/17 21:31 Dose: 5,000 units Lacosamide 100 mg/ Sodium (Chloride) 110 mls @ 110 mls/hr IV Q12H [facility] Last Admin: 08/08/17 22:46 Dose: 110 mls/hr Vancomycin HCl (Vancocin 750mg/Ns 150 Ml) 150 mls @ 100 mls/hr IVPB Q12H [facility] Last Admin: 08/09/17 01:34 Dose: 100 mls/hr Levetiracetam 1,000 mg/ Sodium (Chloride) 110 mls @ 420 mls/hr IVPB Q12H [facility] Last Admin: 08/09/17 02:04 Dose: 420 mls/hr Acyclovir 600 mg/ Sodium (Chloride) 100 mls @ 100 mls/hr IV Q8H [facility] Stop: 08/29/17 23:59 Last Admin: 08/09/17 03:48 Dose: 100 mls/hr Valproate Sodium 750 mg/ (Sodium Chloride) 107.5 mls @ 100 mls/hr IVPB Q12H [facility] Last Admin: 08/09/17 00:03 Dose: 100 mls/hr Ceftriaxone Sodium 2 gm/ (Sodium Chloride) 100 mls @ 100 mls/hr IVPB Q24H [facility] Last Admin: 08/08/17 17:19 Dose: 100 mls/hr Lactobacillus Acidophilus (Bacid Acidophilus) 1 cap PO BID [facility] Last Admin: 08/08/17 17:19 Dose: 1 cap Losartan Potassium (Cozaar) 25 mg PO DAILY [facility] Last Admin: 08/08/17 10:37 Dose: 25 mg Metoprolol Tartrate (Lopressor) 50 mg PO BID [facility] Last Admin: 08/08/17 17:18 Dose: 50 mg Metoprolol Tartrate (Lopressor) 5 mg IVP Q6H [facility] Last Admin: 08/09/17 03:15 Dose: Not Given Rifampin (Rifampin Cap) 300 mg PO TID [facility] Last Admin: 08/08/17 17:19 Dose: 300 mg Rosuvastatin Calcium (Crestor) 40 mg PO HS [facility] Last Admin: 08/08/17 22:04 Dose: 40 mg Spironolactone (Aldactone) 25 mg PO BID [facility] Last Admin: 08/08/17 10:34 Dose: 25 mg - Labs Labs: 08/09/17 07:03 08/09/17 07:03 PT 14.6 SECONDS (9.7-12.2) H 08/01/17 19:55 INR 1.3 08/01/17 19:55 APTT 47 SECONDS (21-34) H 08/01/17 19:55 - Constitutional Appears: Chronically Ill - Head Exam Head Exam: NORMAL INSPECTION - Eye Exam Eye Exam: Normal appearance - ENT Exam ENT Exam: Mucous Membranes Moist - Neck Exam Neck Exam: Full ROM - Respiratory Exam Respiratory Exam: Decreased Breath Sounds - Cardiovascular Exam Cardiovascular Exam: REGULAR RHYTHM - GI/Abdominal Exam GI & Abdominal Exam: Normal Bowel Sounds - Rectal Exam Rectal Exam: Deferred - Extremities Exam Extremities Exam: Normal Inspection. absent: Joint Swelling - Skin Skin Exam: Warm Assessment and Plan (1) PAF (paroxysmal atrial fibrillation) Assessment & Plan: previously was not on anticaogulation due to anemia and GI bleed. 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
[2017-08-09] MEDS: Lactobacillus Acidophilus 500 MU Cap PO SCH ×2 (09:39→17:01)
[2017-08-09] MEDS: Clotrimazole 1% Cream(30 gm) TOP SCH ×2 (09:40→17:02)
[2017-08-09] MEDS: Magnesium Sulfate 1 gm in D5W 1 GM/100 ML BAG IVPB SCH ×2 (09:41→10:53)
[2017-08-09] MEDS: Lacosamide 200mg/20ml 100 MG in Sodium Chloride 0.9% 100 ML IV SCH ×2 (09:55→23:05)
[2017-08-09 11:46] LABS: LYMPH # 0.9 K/uL (1.0-4.3); MONO # 0.2 K/uL (0.0-0.8); NEUT # 3.6 K/uL (1.8-7.0)
--- NOTE | 2017-08-09 14:40 | CP.CCUPN ---
<Scottie Nogueira R - Last Filed: 08/09/17 14:55> CCU Subjective - Physician Review Subjective (Free Text): Patient seen and examined. Saturating well on nasal cannula. NG tube in place. Regular rate, rhythm on monitor is sinus. Facial tick resolved with addition of 3rd antiepileptic. Neurologist, Dr Moreno, suspects herpes encephalitis. Still waiting on HSV PCR from CSF collected yesterday. Will order MRI w/ contrast today. Consider PEG on saturday if no improvement. CCU Objective - Vital Signs / Intake & Output Vital Signs (Last 4 hours): Vital Signs Temp Pulse Resp BP Pulse Ox 08/09/17 14:07 82 15 89/48 L 100 08/09/17 14:00 82 15 100 08/09/17 13:53 87 16 109/55 L 100 08/09/17 13:37 81 15 96/50 L 100 08/09/17 13:22 82 16 97/48 L 100 08/09/17 13:07 86 14 111/54 L 100 08/09/17 13:00 85 15 100 08/09/17 12:52 84 16 106/50 L 100 08/09/17 12:37 86 19 117/60 100 08/09/17 12:22 87 18 112/61 100 08/09/17 12:07 91 H 21 125/61 92 L 08/09/17 12:00 97.7 F 83 16 98 08/09/17 11:52 83 15 125/61 99 08/09/17 11:37 82 17 119/57 L 98 08/09/17 11:22 86 16 124/67 99 08/09/17 11:08 91 H 19 128/67 100 08/09/17 11:00 90 19 100 08/09/17 10:52 88 17 124/63 100 Intake and Output (Last 8hrs): Intake & Output 08/08/17 08/09/17 08/09/17 22:59 06:59 14:59 Intake Total 008 344 6278 Output Total 625 350 265 Balance 312 669 2441 Intake: Intake, IV Amount 626 670 8131 R PICC line 815 800 5999 Oral 100 Tube Feeding 160 160 320 Other 60 Output: Urine 625 350 265 Urethral ([place]) 625 350 265 - Physical Exam Head: Positive for: Atraumatic, Normocephalic Mouth: Positive for: Moist Mucous Membranes Neck: Positive for: Normal Range of Motion Respiratory/Chest: Positive for: Clear to Auscultation, Good Air Exchange Cardiovascular: Positive for: Normal S1, S2 Abdomen: Positive for: Normal Bowel Sounds. Negative for: Tenderness, Distention Upper Extremity: Positive for: Normal Inspection Lower Extremity: Positive for: Normal Inspection, Other (left knee sutures intact w/ knee swollen) Psychiatric: Negative for: Alert, Oriented x 3 - Medications Active Medications: Active Medications Generic Name Dose Route Start Last Admin Trade Name Freq PRN Reason Stop Dose Admin Acetaminophen 650 mg 08/05/17 10:23 08/06/17 20:57 Tylenol 650mg/20.3ml Solution Ud PO 650 mg Q6H PRN Administration Temperature >100.4 Albuterol/Ipratropium 3 ml 08/02/17 08:00 08/09/17 08:01 Duoneb 3 Mg/0.5 Mg (3 Ml) Ud INH 3 ml RQ6 KODAK Administration Clotrimazole 1 gm 08/04/17 10:00 08/09/17 09:40 Lotrimin 1% TOP 1 applic BID KODAK Administration Dexamethasone 6 mg 08/08/17 22:00 08/09/17 09:39 Decadron Inj IVP 08/12/17 22:00 6 mg Q6H KODAK Administration Dextrose 0 ml 08/03/17 17:06 08/03/17 17:55 Dextrose 50% Inj IV 50 ml STAT PRN Administration Hypoglycemia Protocol Protocol Heparin Sodium (Porcine) 5,000 units 08/05/17 22:00 08/09/17 09:39 Heparin SC 5,000 units Q12 KODAK Administration Lacosamide 100 mg/ Sodium 110 mls @ 110 mls/hr 08/03/17 22:00 08/09/17 09:55 Chloride IV 110 mls/hr Q12H KODAK Administration Vancomycin HCl 150 mls @ 100 mls/hr 08/06/17 13:00 08/09/17 13:11 Vancocin 750mg/Ns 150 Ml IVPB 100 mls/hr Q12H KODAK Administration Levetiracetam 1,000 mg/ Sodium 110 mls @ 420 mls/hr 08/07/17 14:00 08/09/17 14:24 Chloride IVPB 420 mls/hr Q12H KODAK Administration Acyclovir 600 mg/ Sodium 100 mls @ 100 mls/hr 08/08/17 20:00 08/09/17 11:44 Chloride IV 08/29/17 23:59 100 mls/hr Q8H KODAK Administration Valproate Sodium 750 mg/ 107.5 mls @ 100 mls/hr 08/09/17 00:00 08/09/17 11:44 Sodium Chloride IVPB 100 mls/hr Q12H KODAK Administration Ceftriaxone Sodium 2 gm/ 100 mls @ 100 mls/hr 08/08/17 16:00 08/08/17 17:19 Sodium Chloride IVPB 100 mls/hr Q24H KODAK Administration Lactobacillus Acidophilus 1 cap 08/02/17 10:00 08/09/17 09:39 Bacid Acidophilus PO 1 cap BID KODAK Administration Losartan Potassium 25 mg 08/02/17 10:00 08/09/17 14:23 Cozaar PO Not Given DAILY KODAK Metoprolol Tartrate 5 mg 08/03/17 09:15 08/09/17 09:40 Lopressor IVP Not Given Q6H KODAK Rifampin 300 mg 08/02/17 10:00 08/09/17 14:27 Rifampin Cap PO 300 mg TID KODAK Administration Rosuvastatin Calcium 40 mg 08/03/17 08:34 08/08/17 22:04 Crestor PO 40 mg HS KODAK Administration Spironolactone 25 mg 08/07/17 10:00 08/08/17 10:34 Aldactone PO 25 mg BID KODAK Administration - Patient Studies Lab Studies: Microbiology Studies 08/08/17 16:16 Fungal Culture - Preliminary Cerebral Spinal Fluid 08/08/17 16:16 Gram Stain - Final Cerebral Spinal Fluid CSF Culture - Preliminary NO GROWTH AFTER 24 HOURS 08/04/17 02:20 Blood Culture - Final Blood-Thru Central Line NO GROWTH AFTER 5 DAYS Gram Stain - Final TEST NOT PERFORMED 08/04/17 02:20 Blood Culture - Final Blood-Thru Central Line NO GROWTH AFTER 5 DAYS Gram Stain - Final TEST NOT PERFORMED 08/08/17 16:16 Gram Stain - Final Cerebral Spinal Fluid Lab Studies 08/09/17 08/09/17 08/09/17 Range/Units 12:02 07:03 07:03 WBC 4.5 L (4.8-10.8) K/uL RBC 2.74 L (3.80-5.20) Mil/uL Hgb 8.0 L (11.0-16.0) g/dL Hct 24.0 L (34.0-47.0) % MCV 87.6 (81.0-99.0) fL MCH 29.2 (27.0-31.0) pg MCHC 33.3 (33.0-37.0) g/dL RDW 17.5 H (11.5-14.5) % Plt Count 245 (130-400) K/uL MPV 8.7 (7.2-11.7) fL Neut % (Auto) 77.0 H (50.0-75.0) % Lymph % (Auto) 19.0 L (20.0-40.0) % [place] % (Auto) 4.0 (0.0-10.0) % Eos % (Auto) 0.0 (0.0-4.0) % Baso % (Auto) 0.0 (0.0-2.0) % Neut # (Auto) 3.6 (1.8-7.0) K/uL Lymph # (Auto) 0.9 L (1.0-4.3) K/uL [place] # (Auto) 0.2 (0.0-0.8) K/uL Eos # (Auto) 0.0 (0.0-0.7) K/uL Baso # (Auto) 0.0 (0.0-0.2) K/uL Sodium 137 (132-148) mmol/L Potassium 3.9 (3.6-5.2) mmol/L Chloride 95 L (98-107) mmol/L Carbon Dioxide 35 H (22-30) mmol/L Anion Gap 11 (10-20) BUN 20 H (7-17) mg/dL Creatinine 1.1 (0.7-1.2) mg/dL Est GFR ( Amer) 59 Est GFR (Non-Af Amer) 49 POC Glucose (mg/dL) 148 H (65-110) mg/dL Random Glucose 146 H (65-105) mg/dL Calcium 8.4 L (8.6-10.4) mg/dl Phosphorus 2.9 (2.5-4.5) mg/dL Magnesium 1.5 L (1.6-2.3) mg/dL Total Bilirubin < 0.1 L (0.2-1.3) mg/dL AST 27 (14-36) U/L ALT < 6 L D (9-52) U/L Alkaline Phosphatase 93 (38-126) U/L Total Protein 6.7 (6.3-8.3) g/dL Albumin 2.4 L (3.5-5.0) g/dL Globulin 4.3 H (2.2-3.9) gm/dL Albumin/Globulin Ratio 0.5 L (1.0-2.1) Fluid Type CSF Volume (0-1) mL CSF Appearance (CLEAR) CSF WBC (0.0-5.0) /mm3 CSF RBC (0.0-0.0) /mm3 CSF Total Cell Counted CSF Monos/Macrophages CSF Comment CSF Glucose (40-70) mg/dL CSF Total Protein (12-60) mg/dL CSF Cryptococcus Ag (NEGATIVE) H.influenzae Type B Ag (NEGATIVE) N.meningitidis ACY/W135 (NEGATIVE) N.meningi B/E.coli K1 Ag (NEGATIVE) Group B Strep Antigen (NEGATIVE) S. pneumoniae Antigen (NEGATIVE) 08/09/17 08/08/17 08/08/17 Range/Units 06:39 23:32 17:09 WBC (4.8-10.8) K/uL RBC (3.80-5.20) Mil/uL Hgb (11.0-16.0) g/dL Hct (34.0-47.0) % MCV (81.0-99.0) fL MCH (27.0-31.0) pg MCHC (33.0-37.0) g/dL RDW (11.5-14.5) % Plt Count (130-400) K/uL MPV (7.2-11.7) fL Neut % (Auto) (50.0-75.0) % Lymph % (Auto) (20.0-40.0) % [place] % (Auto) (0.0-10.0) % Eos % (Auto) (0.0-4.0) % Baso % (Auto) (0.0-2.0) % Neut # (Auto) (1.8-7.0) K/uL Lymph # (Auto) (1.0-4.3) K/uL [place] # (Auto) (0.0-0.8) K/uL Eos # (Auto) (0.0-0.7) K/uL Baso # (Auto) (0.0-0.2) K/uL Sodium (132-148) mmol/L Potassium (3.6-5.2) mmol/L Chloride (98-107) mmol/L Carbon Dioxide (22-30) mmol/L Anion Gap (10-20) BUN (7-17) mg/dL Creatinine (0.7-1.2) mg/dL Est GFR ( Amer) Est GFR (Non-Af Amer) POC Glucose (mg/dL) 155 H 160 H 135 H (65-110) mg/dL Random Glucose (65-105) mg/dL Calcium (8.6-10.4) mg/dl Phosphorus (2.5-4.5) mg/dL Magnesium (1.6-2.3) mg/dL Total Bilirubin (0.2-1.3) mg/dL AST (14-36) U/L ALT (9-52) U/L Alkaline Phosphatase (38-126) U/L Total Protein (6.3-8.3) g/dL Albumin (3.5-5.0) g/dL Globulin (2.2-3.9) gm/dL Albumin/Globulin Ratio (1.0-2.1) Fluid Type CSF Volume (0-1) mL CSF Appearance (CLEAR) CSF WBC (0.0-5.0) /mm3 CSF RBC (0.0-0.0) /mm3 CSF Total Cell Counted CSF Monos/Macrophages CSF Comment CSF Glucose (40-70) mg/dL CSF Total Protein (12-60) mg/dL CSF Cryptococcus Ag (NEGATIVE) H.influenzae Type B Ag (NEGATIVE) N.meningitidis ACY/W135 (NEGATIVE) N.meningi B/E.coli K1 Ag (NEGATIVE) Group B Strep Antigen (NEGATIVE) S. pneumoniae Antigen (NEGATIVE) 08/08/17 08/08/17 08/08/17 Range/Units 16:16 16:16 16:16 WBC (4.8-10.8) K/uL RBC (3.80-5.20) Mil/uL Hgb (11.0-16.0) g/dL Hct (34.0-47.0) % MCV (81.0-99.0) fL MCH (27.0-31.0) pg MCHC (33.0-37.0) g/dL RDW (11.5-14.5) % Plt Count (130-400) K/uL MPV (7.2-11.7) fL Neut % (Auto) (50.0-75.0) % Lymph % (Auto) (20.0-40.0) % [place] % (Auto) (0.0-10.0) % Eos % (Auto) (0.0-4.0) % Baso % (Auto) (0.0-2.0) % Neut # (Auto) (1.8-7.0) K/uL Lymph # (Auto) (1.0-4.3) K/uL [place] # (Auto) (0.0-0.8) K/uL Eos # (Auto) (0.0-0.7) K/uL Baso # (Auto) (0.0-0.2) K/uL Sodium (132-148) mmol/L Potassium (3.6-5.2) mmol/L Chloride (98-107) mmol/L Carbon Dioxide (22-30) mmol/L Anion Gap (10-20) BUN (7-17) mg/dL Creatinine (0.7-1.2) mg/dL Est GFR ( Amer) Est GFR (Non-Af Amer) POC Glucose (mg/dL) (65-110) mg/dL Random Glucose (65-105) mg/dL Calcium (8.6-10.4) mg/dl Phosphorus (2.5-4.5) mg/dL Magnesium (1.6-2.3) mg/dL Total Bilirubin (0.2-1.3) mg/dL AST (14-36) U/L ALT (9-52) U/L Alkaline Phosphatase (38-126) U/L Total Protein (6.3-8.3) g/dL Albumin (3.5-5.0) g/dL Globulin (2.2-3.9) gm/dL Albumin/Globulin Ratio (1.0-2.1) Fluid Type CSF Volume (0-1) mL CSF Appearance (CLEAR) CSF WBC (0.0-5.0) /mm3 CSF RBC (0.0-0.0) /mm3 CSF Total Cell Counted CSF Monos/Macrophages CSF Comment CSF Glucose 69 (40-70) mg/dL CSF Total Protein 44.0 (12-60) mg/dL CSF Cryptococcus Ag Negative (NEGATIVE) H.influenzae Type B Ag Negative (NEGATIVE) N.meningitidis ACY/W135 Negative (NEGATIVE) N.meningi B/E.coli K1 Ag Negative (NEGATIVE) Group B Strep Antigen Negative (NEGATIVE) S. pneumoniae Antigen Negative (NEGATIVE) 08/08/17 Range/Units 16:16 WBC (4.8-10.8) K/uL RBC (3.80-5.20) Mil/uL Hgb (11.0-16.0) g/dL Hct (34.0-47.0) % MCV (81.0-99.0) fL MCH (27.0-31.0) pg MCHC (33.0-37.0) g/dL RDW (11.5-14.5) % Plt Count (130-400) K/uL MPV (7.2-11.7) fL Neut % (Auto) (50.0-75.0) % Lymph % (Auto) (20.0-40.0) % [place] % (Auto) (0.0-10.0) % Eos % (Auto) (0.0-4.0) % Baso % (Auto) (0.0-2.0) % Neut # (Auto) (1.8-7.0) K/uL Lymph # (Auto) (1.0-4.3) K/uL [place] # (Auto) (0.0-0.8) K/uL Eos # (Auto) (0.0-0.7) K/uL Baso # (Auto) (0.0-0.2) K/uL Sodium (132-148) mmol/L Potassium (3.6-5.2) mmol/L Chloride (98-107) mmol/L Carbon Dioxide (22-30) mmol/L Anion Gap (10-20) BUN (7-17) mg/dL Creatinine (0.7-1.2) mg/dL Est GFR ( Amer) Est GFR (Non-Af Amer) POC Glucose (mg/dL) (65-110) mg/dL Random Glucose (65-105) mg/dL Calcium (8.6-10.4) mg/dl Phosphorus (2.5-4.5) mg/dL Magnesium (1.6-2.3) mg/dL Total Bilirubin (0.2-1.3) mg/dL AST (14-36) U/L ALT (9-52) U/L Alkaline Phosphatase (38-126) U/L Total Protein (6.3-8.3) g/dL Albumin (3.5-5.0) g/dL Globulin (2.2-3.9) gm/dL Albumin/Globulin Ratio (1.0-2.1) Fluid Type Spinal fluid CSF Volume 4 H (0-1) mL CSF Appearance Clear/colorless (CLEAR) CSF WBC 0.0 (0.0-5.0) /mm3 CSF RBC 2.0 H (0.0-0.0) /mm3 CSF Total Cell Counted TEST NOT PERFORMED CSF Monos/Macrophages TEST NOT PERFORMED CSF Comment TEST NOT PERFORMED CSF Glucose (40-70) mg/dL CSF Total Protein (12-60) mg/dL CSF Cryptococcus Ag (NEGATIVE) H.influenzae Type B Ag (NEGATIVE) N.meningitidis ACY/W135 (NEGATIVE) N.meningi B/E.coli K1 Ag (NEGATIVE) Group B Strep Antigen (NEGATIVE) S. pneumoniae Antigen (NEGATIVE) Laboratory Results - last 24 hr 08/08/17 08/08/17 08/08/17 16:16 16:16 16:16 WBC RBC Hgb Hct MCV MCH MCHC RDW Plt Count MPV Neut % (Auto) Lymph % (Auto) [place] % (Auto) Eos % (Auto) Baso % (Auto) Neut # (Auto) Lymph # (Auto) [place] # (Auto) Eos # (Auto) Baso # (Auto) Sodium Potassium Chloride Carbon Dioxide Anion Gap BUN Creatinine Est GFR ( Amer) Est GFR (Non-Af Amer) POC Glucose (mg/dL) Random Glucose Calcium Phosphorus Magnesium Total Bilirubin AST ALT Alkaline Phosphatase Total Protein Albumin Globulin Albumin/Globulin Ratio Fluid Type Spinal fluid CSF Volume 4 H CSF Appearance Clear/colorless CSF WBC 0.0 CSF RBC 2.0 H CSF Total Cell Counted TEST NOT PERFORMED CSF Monos/Macrophages TEST NOT PERFORMED CSF Comment TEST NOT PERFORMED CSF Glucose 69 CSF Total Protein 44.0 CSF Cryptococcus Ag Negative H.influenzae Type B Ag N.meningitidis ACY/W135 N.meningi B/E.coli K1 Ag Group B Strep Antigen S. pneumoniae Antigen 08/08/17 08/08/17 08/08/17 16:16 17:09 23:32 WBC RBC Hgb Hct MCV MCH MCHC RDW Plt Count MPV Neut % (Auto) Lymph % (Auto) [place] % (Auto) Eos % (Auto) Baso % (Auto) Neut # (Auto) Lymph # (Auto) [place] # (Auto) Eos # (Auto) Baso # (Auto) Sodium Potassium Chloride Carbon Dioxide Anion Gap BUN Creatinine Est GFR ( Amer) Est GFR (Non-Af Amer) POC Glucose (mg/dL) 135 H 160 H Random Glucose Calcium Phosphorus Magnesium Total Bilirubin AST ALT Alkaline Phosphatase Total Protein Albumin Globulin Albumin/Globulin Ratio Fluid Type CSF Volume CSF Appearance CSF WBC CSF RBC CSF Total Cell Counted CSF Monos/Macrophages CSF Comment CSF Glucose CSF Total Protein CSF Cryptococcus Ag H.influenzae Type B Ag Negative N.meningitidis ACY/W135 Negative N.meningi B/E.coli K1 Ag Negative Group B Strep Antigen Negative S. pneumoniae Antigen Negative 08/09/17 08/09/17 08/09/17 06:39 07:03 07:03 WBC 4.5 L RBC 2.74 L Hgb 8.0 L Hct 24.0 L MCV 87.6 MCH 29.2 MCHC 33.3 RDW 17.5 H Plt Count 245 MPV 8.7 Neut % (Auto) 77.0 H Lymph % (Auto) 19.0 L [place] % (Auto) 4.0 Eos % (Auto) 0.0 Baso % (Auto) 0.0 Neut # (Auto) 3.6 Lymph # (Auto) 0.9 L [place] # (Auto) 0.2 Eos # (Auto) 0.0 Baso # (Auto) 0.0 Sodium 137 Potassium 3.9 Chloride 95 L Carbon Dioxide 35 H Anion Gap 11 BUN 20 H Creatinine 1.1 Est GFR ( Amer) 59 Est GFR (Non-Af Amer) 49 POC Glucose (mg/dL) 155 H Random Glucose 146 H Calcium 8.4 L Phosphorus 2.9 Magnesium 1.5 L Total Bilirubin < 0.1 L AST 27 ALT < 6 L D Alkaline Phosphatase 93 Total Protein 6.7 Albumin 2.4 L Globulin 4.3 H Albumin/Globulin Ratio 0.5 L Fluid Type CSF Volume CSF Appearance CSF WBC CSF RBC CSF Total Cell Counted CSF Monos/Macrophages CSF Comment CSF Glucose CSF Total Protein CSF Cryptococcus Ag H.influenzae Type B Ag N.meningitidis ACY/W135 N.meningi B/E.coli K1 Ag Group B Strep Antigen S. pneumoniae Antigen 08/09/17 12:02 WBC RBC Hgb Hct MCV MCH MCHC RDW Plt Count MPV Neut % (Auto) Lymph % (Auto) [place] % (Auto) Eos % (Auto) Baso % (Auto) Neut # (Auto) Lymph # (Auto) [place] # (Auto) Eos # (Auto) Baso # (Auto) Sodium Potassium Chloride Carbon Dioxide Anion Gap BUN Creatinine Est GFR ( Amer) Est GFR (Non-Af Amer) POC Glucose (mg/dL) 148 H Random Glucose Calcium Phosphorus Magnesium Total Bilirubin AST ALT Alkaline Phosphatase Total Protein Albumin Globulin Albumin/Globulin Ratio Fluid Type CSF Volume CSF Appearance CSF WBC CSF RBC CSF Total Cell Counted CSF Monos/Macrophages CSF Comment CSF Glucose CSF Total Protein CSF Cryptococcus Ag H.influenzae Type B Ag N.meningitidis ACY/W135 N.meningi B/E.coli K1 Ag Group B Strep Antigen S. pneumoniae Antigen Fingerstick Blood Sugar Results: 146 Review of Systems - Review of Systems Systems not reviewed;Unavailable: Altered Mental Status Assessment/Plan - Assessment and Plan (Free Text) Assessment: Assessment: Pt is a 72F with new onset seizures. Neuro: New onset seizure (etiology unknown), hx of dementia Neurologist Dr. Cornejo/Josh on board * Bedside EEG showed waveform activity in temporal lobes - now investigating HSV related etiology * Recommend to repeat CTA of the head to evaluate the posterior cerebral artery. Vimpat 200mg/20ml IV BID Keppra 1000mg IV BID Dexamethasone 10 mg IV x 1 dose followed by 6 mg IV Q6H through 08/12/17 Valproic Acid 750mg IV Q12H added 08/08/17 Imaging: F/U MRI Brain w/ and w/o contrast CT head negative for acute changes CTA Head/Neck shows no flow limiting cervical carotid stenosis or vessel occlusion, also patent vertebral arteries brain MRI shows no acute intracranial hemorrhage. Moderate chronic white matter the ischemic changes with scattered small basal nuclei, brainstem and left cerebellar lacunar type infarcts. Moderate to fairly significant generalized volume loss. MRA head showed patent anterior circulation. Right distal posterior cerebral artery is not well visualized which may be artifactual however a occlusion cannot be excluded. Patent left posterior cerebral artery, vertebral and basilar arteries. MRA neck showed no evidence of hemodynamically significant stenosis in the internal carotid arteries. Patent vertebral arteries. follow up EEG ID: [id number] Septic Arthirtis; s/p arthroscopic irrigation and debridement of left knee on 07/19/[address] Avina on board Ortho Dr Quintero on board * Will evaluate patient and possibly remove sutures from I&D on 07/19/17 Gentamycin 70mg IV QD * Held 08/07/27 dose due to high genta trough. Will get random genta level. * last dose on 08/08/17 rifampin 300mg PO TID Ceftriaxone 2 gram IV Q24H started 08/08/17 Acyclovir 600 mg IV Q8H added 08/08/17 Vancomycin 750mg IV Q12H Lumbar Tap Performed 08/08/17 * Tube 1: cell count with differential, protein, glucose, Gram Stain, Cryptococcal Ag, Bacterial Ag, VDRL * Tube 2: HSV 1 PCR, HSV 2 PCR, AFB PCR, WNV PCR, Lyme PCR * Tube 3: Bacterial Culture, AFB Smear and Culture, Fungal Smear and Culture, HSV Culture, Cytology, Anti-NMDAR Antibodies to look for B-Jxjmoi-U-Aspartate Receptor Abs lactate NORMAL NEGATIVE for flu Blood culture NEGATIVE up to date Renal: Hyponatremia [place] Operator Dr Eddy on board Hyponatremia not improving with tolvaptan with urine osm still high; likely due to decreased tolvaptan levels while on rifampin; will continue with tolvaptan 30 mg daily Aldactone 12.5 mg PO BID * Held today due to low BP Endo: SIADH (etiology unclear), DM Nephrology, Dr Moser on board Hyponatremia not improving with tolvaptan with urine osm still high; likely due to decreased tolvaptan levels while on rifampin; will continue with tolvaptan 30 mg daily Hypoglycemic protocol Cardio: Ischemic cardiomyopathy with low EF, HTN, paroxymal A-Fib, s/p CABG Probnp [id number] Cozaar 25mg PO QD cardizem 10mg IVP Lopressor 50mg PO BID Lasix 20mg IV BID * Will switch to PO on 08/09/17 Crestor 40mg PO HS CPK NORMAL Lipid Profile NORMAL ECHO bubble study - no ASD seen Pulm: hx of COPD extubated 08/03/17 duoneb INH QID ABG ordered Electrolytes: hypokalemia resolved, hypomagnesemia, hyponatremia Replete MgSulfate to keep Mg above 2.[address] Eddy on board Hyponatremia not improving with tolvaptan with urine osm still high; likely due to decreased tolvaptan levels while on rifampin; will continue with tolvaptan 30 mg daily GI: no active issues NG tube feeds Ppx: Heparin 5,000 units protonix 40mg PO QD <Kameron Simpson - Last Filed: 08/09/17 18:01> CCU Objective - Vital Signs / Intake & Output Vital Signs (Last 4 hours): Vital Signs Temp Pulse Resp BP Pulse Ox 08/09/17 17:00 87 18 100 08/09/17 16:52 85 13 152/69 H 99 08/09/17 16:37 86 15 146/80 100 08/09/17 16:28 86 16 141/83 99 08/09/17 16:24 86 18 08/09/17 16:00 97.5 F L 08/09/17 15:09 85 19 108/53 L 100 08/09/17 15:00 80 16 100 08/09/17 14:52 81 13 98/46 L 100 08/09/17 14:37 81 15 90/43 L 100 08/09/17 14:22 81 15 98/43 L 100 08/09/17 14:07 82 15 89/48 L 100 Intake and Output (Last 8hrs): Intake & Output 08/09/17 08/09/17 08/09/17 06:59 14:59 22:59 Intake Total 610 1920 420 Output Total 350 265 100 Balance 260 1655 320 Intake: Intake, IV Amount 450 1600 300 R PICC line 450 1600 300 Tube Feeding 160 320 120 Output: Urine 350 265 100 Urethral ([place]) 350 265 100 - Medications Active Medications: Active Medications Generic Name Dose Route Start Last Admin Trade Name Freq PRN Reason Stop Dose Admin Acetaminophen 650 mg 08/05/17 10:23 08/06/17 20:57 Tylenol 650mg/20.3ml Solution Ud PO 650 mg Q6H PRN Administration Temperature >100.4 Albuterol/Ipratropium 3 ml 08/02/17 08:00 08/09/17 14:58 Duoneb 3 Mg/0.5 Mg (3 Ml) Ud INH 3 ml RQ6 KODAK Administration Clotrimazole 1 gm 08/04/17 10:00 08/09/17 17:02 Lotrimin 1% TOP 1 applic BID KODAK Administration Dexamethasone 6 mg 08/08/17 22:00 08/09/17 15:09 Decadron Inj IVP 08/12/17 22:00 6 mg Q6H KODAK Administration Dextrose 0 ml 08/03/17 17:06 08/03/17 17:55 Dextrose 50% Inj IV 50 ml STAT PRN Administration Hypoglycemia Protocol Protocol Heparin Sodium (Porcine) 5,000 units 08/05/17 22:00 08/09/17 09:39 Heparin SC 5,000 units Q12 KODAK Administration Lacosamide 100 mg/ Sodium 110 mls @ 110 mls/hr 08/03/17 22:00 08/09/17 09:55 Chloride IV 110 mls/hr Q12H KODAK Administration Vancomycin HCl 150 mls @ 100 mls/hr 08/06/17 13:00 08/09/17 13:11 Vancocin 750mg/Ns 150 Ml IVPB 100 mls/hr Q12H KODAK Administration Levetiracetam 1,000 mg/ Sodium 110 mls @ 420 mls/hr 08/07/17 14:00 08/09/17 14:24 Chloride IVPB 420 mls/hr Q12H KODAK Administration Acyclovir 600 mg/ Sodium 100 mls @ 100 mls/hr 08/08/17 20:00 08/09/17 11:44 Chloride IV 08/29/17 23:59 100 mls/hr Q8H KODAK Administration Valproate Sodium 750 mg/ 107.5 mls @ 100 mls/hr 08/09/17 00:00 08/09/17 11:44 Sodium Chloride IVPB 100 mls/hr Q12H KODAK Administration Ceftriaxone Sodium 2 gm/ 100 mls @ 100 mls/hr 08/08/17 16:00 08/09/17 15:10 Sodium Chloride IVPB 100 mls/hr Q24H KODAK Administration Lactobacillus Acidophilus 1 cap 08/02/17 10:00 02/23/18 17:01 Bacid Acidophilus PO 1 cap BID KODAK Administration Losartan Potassium 25 mg 08/02/17 10:00 08/09/17 14:23 Cozaar PO Not Given DAILY [facility]1983 Metoprolol Tartrate 5 mg 08/03/17 09:15 08/09/17 14:49 Lopressor IVP Not Given Q6H [facility], 1928–1983 Rifampin 300 mg 08/02/17 10:00 08/09/17 17:02 Rifampin Cap PO 300 mg TID KODAK Administration Rosuvastatin Calcium 40 mg 08/03/17 08:34 08/08/17 22:04 Crestor PO 40 mg HS KODAK Administration Spironolactone 25 mg 08/07/17 10:00 08/08/17 10:34 Aldactone PO 25 mg BID KODAK Administration - Patient Studies Lab Studies: Microbiology Studies 08/08/17 16:16 Fungal Culture - Preliminary Cerebral Spinal Fluid 08/08/17 16:16 Gram Stain - Final Cerebral Spinal Fluid CSF Culture - Preliminary NO GROWTH AFTER 24 HOURS 08/04/17 02:20 Blood Culture - Final Blood-Thru Central Line NO GROWTH AFTER 5 DAYS Gram Stain - Final TEST NOT PERFORMED 08/04/17 02:20 Blood Culture - Final Blood-Thru Central Line NO GROWTH AFTER 5 DAYS Gram Stain - Final TEST NOT PERFORMED 08/08/17 16:16 Gram Stain - Final Cerebral Spinal Fluid Lab Studies 08/09/17 08/09/17 08/09/17 Range/Units 12:02 07:03 07:03 WBC 4.5 L (4.8-10.8) K/uL RBC 2.74 L (3.80-5.20) Mil/uL Hgb 8.0 L (11.0-16.0) g/dL Hct 24.0 L (34.0-47.0) % MCV 87.6 (81.0-99.0) fL MCH 29.2 (27.0-31.0) pg MCHC 33.3 (33.0-37.0) g/dL RDW 17.5 H (11.5-14.5) % Plt Count 245 (130-400) K/uL MPV 8.7 (7.2-11.7) fL Neut % (Auto) 77.0 H (50.0-75.0) % Lymph % (Auto) 19.0 L (20.0-40.0) % [place] % (Auto) 4.0 (0.0-10.0) % Eos % (Auto) 0.0 (0.0-4.0) % Baso % (Auto) 0.0 (0.0-2.0) % Neut # (Auto) 3.6 (1.8-7.0) K/uL Lymph # (Auto) 0.9 L (1.0-4.3) K/uL [place] # (Auto) 0.2 (0.0-0.8) K/uL Eos # (Auto) 0.0 (0.0-0.7) K/uL Baso # (Auto) 0.0 (0.0-0.2) K/uL Sodium 137 (132-148) mmol/L Potassium 3.9 (3.6-5.2) mmol/L Chloride 95 L (98-107) mmol/L Carbon Dioxide 35 H (22-30) mmol/L Anion Gap 11 (10-20) BUN 20 H (7-17) mg/dL Creatinine 1.1 (0.7-1.2) mg/dL Est GFR ( Amer) 59 Est GFR (Non-Af Amer) 49 POC Glucose (mg/dL) 148 H (65-110) mg/dL Random Glucose 146 H (65-105) mg/dL Calcium 8.4 L (8.6-10.4) mg/dl Phosphorus 2.9 (2.5-4.5) mg/dL Magnesium 1.5 L (1.6-2.3) mg/dL Total Bilirubin < 0.1 L (0.2-1.3) mg/dL AST 27 (14-36) U/L ALT < 6 L D (9-52) U/L Alkaline Phosphatase 93 (38-126) U/L Total Protein 6.7 (6.3-8.3) g/dL Albumin 2.4 L (3.5-5.0) g/dL Globulin 4.3 H (2.2-3.9) gm/dL Albumin/Globulin Ratio 0.5 L (1.0-2.1) 08/09/17 08/08/17 Range/Units 06:39 23:32 WBC (4.8-10.8) K/uL RBC (3.80-5.20) Mil/uL Hgb (11.0-16.0) g/dL Hct (34.0-47.0) % MCV (81.0-99.0) fL MCH (27.0-31.0) pg MCHC (33.0-37.0) g/dL RDW (11.5-14.5) % Plt Count (130-400) K/uL MPV (7.2-11.7) fL Neut % (Auto) (50.0-75.0) % Lymph % (Auto) (20.0-40.0) % [place] % (Auto) (0.0-10.0) % Eos % (Auto) (0.0-4.0) % Baso % (Auto) (0.0-2.0) % Neut # (Auto) (1.8-7.0) K/uL Lymph # (Auto) (1.0-4.3) K/uL [place] # (Auto) (0.0-0.8) K/uL Eos # (Auto) (0.0-0.7) K/uL Baso # (Auto) (0.0-0.2) K/uL Sodium (132-148) mmol/L Potassium (3.6-5.2) mmol/L Chloride (98-107) mmol/L Carbon Dioxide (22-30) mmol/L Anion Gap (10-20) BUN (7-17) mg/dL Creatinine (0.7-1.2) mg/dL Est GFR ( Amer) Est GFR (Non-Af Amer) POC Glucose (mg/dL) 155 H 160 H (65-110) mg/dL Random Glucose (65-105) mg/dL Calcium (8.6-10.4) mg/dl Phosphorus (2.5-4.5) mg/dL Magnesium (1.6-2.3) mg/dL Total Bilirubin (0.2-1.3) mg/dL AST (14-36) U/L ALT (9-52) U/L Alkaline Phosphatase (38-126) U/L Total Protein (6.3-8.3) g/dL Albumin (3.5-5.0) g/dL Globulin (2.2-3.9) gm/dL Albumin/Globulin Ratio (1.0-2.1) Laboratory Results - last 24 hr 08/08/17 08/09/17 08/09/17 23:32 06:39 07:03 WBC 4.5 L RBC 2.74 L Hgb 8.0 L Hct 24.0 L MCV 87.6 MCH 29.2 MCHC 33.3 RDW 17.5 H Plt Count 245 MPV 8.7 Neut % (Auto) 77.0 H Lymph % (Auto) 19.0 L [place] % (Auto) 4.0 Eos % (Auto) 0.0 Baso % (Auto) 0.0 Neut # (Auto) 3.6 Lymph # (Auto) 0.9 L [place] # (Auto) 0.2 Eos # (Auto) 0.0 Baso # (Auto) 0.0 Sodium Potassium Chloride Carbon Dioxide Anion Gap BUN Creatinine Est GFR ( Amer) Est GFR (Non-Af Amer) POC Glucose (mg/dL) 160 H 155 H Random Glucose Calcium Phosphorus Magnesium Total Bilirubin AST ALT Alkaline Phosphatase Total Protein Albumin Globulin Albumin/Globulin Ratio 08/09/17 08/09/17 07:03 12:02 WBC RBC Hgb Hct MCV MCH MCHC RDW Plt Count MPV Neut % (Auto) Lymph % (Auto) [place] % (Auto) Eos % (Auto) Baso % (Auto) Neut # (Auto) Lymph # (Auto) [place] # (Auto) Eos # (Auto) Baso # (Auto) Sodium 137 Potassium 3.9 Chloride 95 L Carbon Dioxide 35 H Anion Gap 11 BUN 20 H Creatinine 1.1 Est GFR ( Amer) 59 Est GFR (Non-Af Amer) 49 POC Glucose (mg/dL) 148 H Random Glucose 146 H Calcium 8.4 L Phosphorus 2.9 Magnesium 1.5 L Total Bilirubin < 0.1 L AST 27 ALT < 6 L D Alkaline Phosphatase 93 Total Protein 6.7 Albumin 2.4 L Globulin 4.3 H Albumin/Globulin Ratio 0.5 L Attending/Attestation - Attestation I have personally seen and examined this patient.: Yes I have fully participated in the care of the patient.: Yes I have reviewed all pertinent clinical information: Yes Notes (Text): 08/09/17 18:01 I have seen and examined the patient. Medical records, lab studies, and imaging were reviewed by me and a management plan was formulated on multidisciplinary rounds with resident Dr. Rangel. I agree with their documented assessment and plan. 72yo F. PMHx Afib, CAD, ischemic CM s/p CABG - 20% EF, systolic HF, HTN, COPD. recent I/D of left septic knee. p/w new onset seizures. Neuro: alert but not following commands. on 3 antiepileptic drugs, Vimpat, Keppra and Depakote. Also empirically startedo on acyclovir for possible herpes encephalitis. Awaiting CSF serologies. CSF cell count doesn't show anything. MRI (-), will repeat with contrast. CV: HTN, continue Losartan and spironolactone. Afib rate controlled with moetprolol IV q6h. GI: NPO, Jevity. if patient's mental status doesn't improve she will need PEG. ID: Vancomycin, rifampin po tid and ceftriaxone for coverage of recent septic knee. DVT proph - heparin sq GI proph - not currently indicated [place] for strict I/O's during acute illness Code status - full code Critical Care Time 35 minutes. Multi-disciplinary rounds were performed with house staff, nursing, speech therapy, respiratory therapy, pharmacy and nutrition with integrated input from the primary team/attending and other consulting services. The documented time is cumulative and includes review of patient data/exams/labs/chart review and examination of the patient on rounds and throughout the day; time is exclusive of any procedures or teaching time.
[2017-08-09] MEDS: cefTRIAXone 2 GM in Sodium Chloride 0.9% 100 ML IVPB SCH (15:10)
--- NOTE | 2017-08-09 15:45 | CP.PCM.PN ---
Subjective - Date & Time of Evaluation Date of Evaluation: 08/09/17 Time of Evaluation: 15:30 - Subjective Subjective: Hospitalist Progress Note Patient was seen and examined at 3:30 PM 08/09/17 ICU BED #6 Patient is awake with NGT and NONrepsonsive to questioning therefore ROS is NOT possible. EXAM: - Constitutional Appears: Non-toxic, No Acute Distress,Twitching of the face not present at the time of my exam - Head Exam Head Exam: NORMAL INSPECTION - Eye Exam Eye Exam: Pupils are reactive to light. The Right Pupil was greater in size than the Left Pupil however on today's exam they are equal in size and sluggishly reactive to light - Neck Exam Neck Exam: NO cervical/supraclavicular/submandibular lymphadenopathy, NO thyromegaly - Respiratory Exam Respiratory Exam: Clear to Ausculation Bilateral, NORMAL BREATHING PATTERN. absent: Rales, Rhonchi, Wheezes - Cardiovascular Exam Cardiovascular Exam: Normal +S1, +S2, NO M/R/G - GI/Abdominal Exam GI & Abdominal Exam: Soft, ND, BSX4 are now normal, NO guarding, NO rebound tenderness - Extremities Exam Extremities Exam: NO edema present in the arms and legs, Capillary refill is 2 seconds, Pulses are strong and equal, Right Arm PICC Line Left knee edema without erythema - Neurological Exam Neurological Exam: Awake with twitching no longer present at the time of my exam. - Skin Skin Exam: Bilateral groin area with a rash that is erythematous with scalloping borders, Lumbar/Sacral blanchable erythema Assessment and Plan (1) New onset seizure Assessment & Plan: * 08/01: per review of ED triage note: Via ALS from [facility], prior notification of resident experiencing ''jerky movements few secs for a total of 3 episodes''; seizure-like activity witnessed by ALS, treated with ATIVAN 2MG IV GIVEN VIA PICC LINE TO RT ARM PER REPORT GIVEN; on NRB 100%, TNJ=890nr/d * 08/01: Per review of ED note: In ambulance, given Ativan 2mg on route, NIHSS: 29 (noted for dysarthria and profound neglect does not recognize own hand or oreitns to one side. ED attempted to reverse with Flumazenil given patient appeared comatose. Intubated in the ED for airway protection with etomidate * Code stroke 08/01/17 GCS: 4 * Factors for seizure activity: * Precipitating factors: hyponatremia, hypokalemia, hypomagnesium * Antibiotic side effect: gentamicin (seizure, confusion, lethargy per uptodate ), rifampin (fatigue, drowsiness, confusion), Cefazolin (seizure) * pain medication: tramadol * Imaging: * CT head (08/01/17): nonspecific white matter changes. Acute infarction may be CT occult within first 24 hours. If a focal deficit persists, consider for further evaulation. Atherosclerotic disease of intracranial arteries. probable chronic lacunar infarcts within basal ganglia. * CT Head and neck (08/01/17): no flow limiting cervical cartoid artery stenosis or vessel occlusion. Patent vertebral arteries * CT Head (08/02/17): no evidence of acute infarct. Chronic microvascular white matter ischemic change. otherwise unremarkable. * MRI Brain (08/05/17): NO acute intracranial hemorrhage. Moderate chronic white matter changes with scattered small basal nuclei, brain stem, and left cerebellar lacunar infarcts * MRI Neck (08/05/17): NO evidence of any significant stenosis of the carotid arteries * MRI Brain (08/05/17): Right distal Posterior Cerebral Artery can't be visualized but this may be artifactual vs occlusion can't be excluded. * F/U MRI Brain with and without contrast (08/09/17) * Neurology (Dr. Cornejo/Josh) on board-->help appreciated * F/U EEG from morning 08/08/17 * Vimpat 100 mg IVP Q12H * Keppra 1,000 mg IV Q12H * Valproic Acid 750mg IV Q12H added 08/08/17 * Acyclovir 600 mg IV Q8H added 08/08/17 * Patient for Lumbar Tap 08/08/17 by ICU Team and the following studies have been ordered and will need to be followed up: * Tube 1: cell count with differential, protein, glucose, Gram Stain, Cryptococcal Ag, Bacterial Ag, VDRL * Tube 2: HSV 1 PCR, HSV 2 PCR, AFB PCR, WNV PCR, Lyme PCR * Tube 3: Bacterial Culture, AFB Smear and Culture, Fungal Smear and Culture, HSV Culture, Cytology, Anti-NMDAR Antibodies to look for Z-Cacuxq-X-Aspartate Receptor Abs * Ceftriaxone 2 gram IV Q24H started 08/08/17 * Dexamethasone 10 mg IV x 1 dose followed by 6 mg IV Q6H through 08/12/17 * PICC line (had been placed 07/24/17). * Monitor electrolytes Status: Acute (2) Hypokalemia/Hypomagnesemia Assessment & Plan: * Replete as needed Status: Acute (3) Hyponatremia/SIADH Assessment & Plan: * Nephrology (Dr. Eddy) on the case-->help appreciated * SIADH * Could also be secondary to the Keppra? * Patient has received Tolvaptan 30 mg PO 1x/day on 08/03/17/, 08/04/17, 08/05/17, 08/06/17. However patient is also on Rifampin (as part of treatment for Left Knee Septic Arthritis) and this may interfere with the Tolvaptan. * Aldactone 25 mg PO Q12H is on HOLD Status: Acute (4) Septic arthritis Assessment & Plan: * Infectious Disease (Dr. Jannie Avina) on the case-->help appreciated * From last admission: * On 07/19/17: Left knee arthroscopic. #1 I&D. #2 extensive synovectomy. #3 synovial biopsy and culture acquisition. #4 partial medial and lateral menisectomies. #5 chondroplasty trochlea * Post-Operative Diagnoses: Left knee #1 septic arthritis. #2 inflammatory synovitis. #3 crystal arthropathy/ pseudogout. #4 deg/complex medial meniscal tear. #5 deg/ complex lateral meniscal tear. #6 chondromalacia trochlea/MFC/ LFC, early DJD patella * 07/19/17: MSSA in Left knee and left Synovial sample * 07/16/17: Blood culture: no growth after 5 days * 07/23/17: Blood culture: no growth after 5 days * Patient was discharged on Ancef, Rifampin, and gentamicin. MICS available (07/26) and came back on 08/01/17. * Gentamicin Sulfate 70mg IVPB Q24H (active 08/04/17) X 5 bags with last dose on 08/08/17 * Monitor renal function * Rifampin 300mg PO TID (08/02/17) * Will impact [place] * Vancomycin 750mg IVPB Q12H (active since 08/03/17) * Monitor renal function * She will need a total of 6 weeks of Antibiotics * Orthopedics LONA Ann removed sutures 08/07/17 Status: Chronic (5) H/O mitral valve replacement (bioprosthetic valve) Assessment & Plan: * Cardiology (Dr. Rowan) on the case-->help appreciated; Dr. Rush covering this weekend * Will need to follow-up in regards anticoagulation such as aspirin in regards to bioprosthetic valvue * Per cardiology, do not start chemical anticoagulation given recurrent history of GI bleeding * Echocardiogram (08/02/17): No ASD seen. * Echocardiogram (07/22/17): limited study, vegetation on MV cannot be excluded. Rec. ASTRID to define MV/Calcified mitral ring? * Echocardiogram (07/01/17): systolic function is severely impaired. Anterior and septa; aldridge reveal dyskinesis with wall thinning. (indicative of prior transmural NC), inferior wall is severely hypokinestic, lateral wall is mod to severely hypokinetic, Left atrium is moderately dilated, right atrium is moderately dilated, mild concentric left ventricular hypertrophy, mild mitral valve stenosis, * Cardiac cath: severe multivessel coronary artery disease, severe left ventricular systolic dysfunction (2017) * Hx CABG * Prosthetic valve * NO ASTRID considering findings on MRI Brain 08/05/17 that showed chronic lacunar infarcts Status: Chronic (6) Diabetes mellitus Assessment & Plan: * [id number]: 5.1 * Controlled * Accuchecks Q6H Status: Chronic (7) Hypertension Assessment & Plan: * Lopressor 50mg PO BID * Crestor 2.5mg POqHS * Cozaar 25mg PO daily Status: Chronic (8) Hx Coronary artery disease/CABG Status: Chronic * Lopressor 50mg PO BID * Crestor 2.5mg POqHS * Cozaar 25mg PO daily (9) Severe systolic congestive heart failure Assessment & Plan: * Lopressor, Cozaar * On last admission recommends for outpatient AICD by Dr Rowan Status: Chronic (10) Atelectasis Assessment & Plan: * CT Chest (08/02/17): small right pleural effusion and right lower lobe subsegmental atelectasis. Opacity seen at right lung base on earlier chest radiograph of the same date was likely artifactual due to overlying medical equipment Status: Acute (11) Paroxysmal Atrial Fibrillation Assessment & Plan: * Lopressor 5mg IVPQ6H * Lopressor 50mg PO BID * Per cardiology, hold chemical anticoagulation, patient has history of recurrent GI bleed, awaiting brain MRI, may or may not need ASTRID Status: Acute (12) Fungal Rash * Inner groin folds and back side * Lotrimin 1% cream (13) Prophylactic measure Assessment & Plan: * Heparin 5000 units [id number] was placed on HOLD for Lumbar Tap * Protonix 40mg IVP Q12H * Bacid 1 cap PO BID * Tylenol 650 mg Q6H PRN Fever * Duoneb Q6H PRN * PT/OT eval * Wound care Harsh Stokes D.O. Objective - Vital Signs/Intake and Output Vital Signs (last 24 hours): Temp Pulse Resp BP Pulse Ox 97.7 F 82 15 89/48 L 100 08/09/17 12:00 08/09/17 14:07 08/09/17 14:07 08/09/17 14:07 08/09/17 14:07 Intake and Output: 08/09/17 08/09/17 06:59 18:59 Intake Total 1000 1920 Output Total 590 265 Balance 410 1655 - Medications Medications: Current Medications Acetaminophen (Tylenol 650mg/20.3ml Solution Ud) 650 mg PO Q6H PRN PRN Reason: Temperature >100.4 Last Admin: 08/06/17 20:57 Dose: 650 mg Albuterol/Ipratropium (Duoneb 3 Mg/0.5 Mg (3 Ml) Ud) 3 ml INH RQ6 [facility] Last Admin: 08/09/17 14:58 Dose: 3 ml Clotrimazole (Lotrimin 1%) 1 gm TOP BID [facility] Last Admin: 08/09/17 09:40 Dose: 1 applic Dexamethasone (Decadron Inj) 6 mg IVP Q6H [facility] Stop: 08/12/17 22:00 Last Admin: 08/09/17 15:09 Dose: 6 mg Dextrose (Dextrose 50% Inj) 0 ml IV STAT PRN; Protocol PRN Reason: Hypoglycemia Protocol Last Admin: 08/03/17 17:55 Dose: 50 ml Heparin Sodium (Porcine) (Heparin) 5,000 units SC Q12 [facility] Last Admin: 08/09/17 09:39 Dose: 5,000 units Lacosamide 100 mg/ Sodium (Chloride) 110 mls @ 110 mls/hr IV Q12H [facility] Last Admin: 08/09/17 09:55 Dose: 110 mls/hr Vancomycin HCl (Vancocin 750mg/Ns 150 Ml) 150 mls @ 100 mls/hr IVPB Q12H [facility] Last Admin: 08/09/17 13:11 Dose: 100 mls/hr Levetiracetam 1,000 mg/ Sodium (Chloride) 110 mls @ 420 mls/hr IVPB Q12H [facility] Last Admin: 08/09/17 14:24 Dose: 420 mls/hr Acyclovir 600 mg/ Sodium (Chloride) 100 mls @ 100 mls/hr IV Q8H [facility] Stop: 08/29/17 23:59 Last Admin: 08/09/17 11:44 Dose: 100 mls/hr Valproate Sodium 750 mg/ (Sodium Chloride) 107.5 mls @ 100 mls/hr IVPB Q12H [facility] Last Admin: 08/09/17 11:44 Dose: 100 mls/hr Ceftriaxone Sodium 2 gm/ (Sodium Chloride) 100 mls @ 100 mls/hr IVPB Q24H [facility] Last Admin: 08/09/17 15:10 Dose: 100 mls/hr Lactobacillus Acidophilus (Bacid Acidophilus) 1 cap PO BID [facility] Last Admin: 08/09/17 09:39 Dose: 1 cap Losartan Potassium (Cozaar) 25 mg PO DAILY [facility] Last Admin: 08/09/17 14:23 Dose: Not Given Metoprolol Tartrate (Lopressor) 5 mg IVP Q6H [facility] Last Admin: 08/09/17 14:49 Dose: Not Given Rifampin (Rifampin Cap) 300 mg PO TID [facility] Last Admin: 08/09/17 14:27 Dose: 300 mg Rosuvastatin Calcium (Crestor) 40 mg PO HS [facility] Last Admin: 08/08/17 22:04 Dose: 40 mg Spironolactone (Aldactone) 25 mg PO BID [facility] Last Admin: 08/08/17 10:34 Dose: 25 mg - Labs Labs: 08/09/17 07:03 08/09/17 07:03 PT 14.6 SECONDS (9.7-12.2) H 08/01/17 19:55 INR 1.3 08/01/17 19:55 APTT 47 SECONDS (21-34) H 08/01/17 19:55
[2017-08-09] MEDS ORDERED: Gadodiamide 287 MG/ML VIAL (15ML) IV ONE (16:02)
--- NOTE | 2017-08-09 16:54 | MRI ---
PROCEDURE: MRI BRAIN WITH AND WITHOUT CONTRAST HISTORY: suspect herpes encephalitis; seizures COMPARISON: Comparison is made with the previous study dated 08/05/2017 TECHNIQUE: Multiplanar, multisequence MR images of the brain were obtained with and without intravenous contrast enhancement. FINDINGS: HEMORRHAGE: None DWI: No evidence of an acute or early subacute infarction. BRAIN PARENCHYMA: No mass,mass effect or edema. Again noted are moderate volume loss and mild white matter changes. No evidence of hyperintense signal or edema in the cerebral cortex to suggest encephalitis. ENHANCEMENT: No abnormal intracranial enhancement. VENTRICLES: Unremarkable. No hydrocephalus. CRANIUM: Unremarkable. ORBITS: Grossly unremarkable. PARANASAL SINUSES/MASTOIDS: Clear VASCULAR SYSTEM: Skull base flow voids intact. OTHER FINDINGS: None . IMPRESSION: No evidence of abnormal signal, edema or enhancement in the cerebral cortex to suggest encephalitis and active infectious process. No evidence of abnormal leptomeningeal enhancement.
--- NOTE | 2017-08-09 22:44 | CP.PCM.PN ---
Subjective - Date & Time of Evaluation Date of Evaluation: 08/09/17 Time of Evaluation: 22:44 - Subjective Subjective: afebrile. BP IN LOW 90S SYSTOLIC LESS FACIAL TICS. RT UPPER EXTREMITY FLACCID. ON MULTIPLE IV ABX /IV ACYCLOVIR AND DEXAMETHASONE AWAITING CSF PCR FOR HSV. PT FOR REPEAT MRI OF BRAIN TODAY NEUROLOGY F/U NOTED. CONTINUE PRESENT RX. CASE DISCUSSED WITH STAFF. Objective - Vital Signs/Intake and Output Vital Signs (last 24 hours): Temp Pulse Resp BP Pulse Ox 98.2 F 80 15 112/59 L 99 08/09/17 20:00 08/09/17 22:01 08/09/17 22:01 08/09/17 22:01 08/09/17 22:01 Intake and Output: 08/09/17 08/10/17 18:59 06:59 Intake Total 2380 360 Output Total 400 180 Balance 1980 180 - Medications Medications: Current Medications Acetaminophen (Tylenol 650mg/20.3ml Solution Ud) 650 mg PO Q6H PRN PRN Reason: Temperature >100.4 Last Admin: 08/06/17 20:57 Dose: 650 mg Albuterol/Ipratropium (Duoneb 3 Mg/0.5 Mg (3 Ml) Ud) 3 ml INH RQ6 [facility] Last Admin: 08/09/17 19:28 Dose: 3 ml Clotrimazole (Lotrimin 1%) 1 gm TOP BID [facility] Last Admin: 08/09/17 17:02 Dose: 1 applic Dexamethasone (Decadron Inj) 6 mg IVP Q6H [facility] Stop: 08/12/17 22:00 Last Admin: 08/09/17 22:04 Dose: 6 mg Dextrose (Dextrose 50% Inj) 0 ml IV STAT PRN; Protocol PRN Reason: Hypoglycemia Protocol Last Admin: 08/03/17 17:55 Dose: 50 ml Heparin Sodium (Porcine) (Heparin) 5,000 units SC Q12 [facility] Last Admin: 08/09/17 22:03 Dose: 5,000 units Lacosamide 100 mg/ Sodium (Chloride) 110 mls @ 110 mls/hr IV Q12H [facility] Last Admin: 08/09/17 09:55 Dose: 110 mls/hr Vancomycin HCl (Vancocin 750mg/Ns 150 Ml) 150 mls @ 100 mls/hr IVPB Q12H [facility] Last Admin: 02/23/18 13:11 Dose: 100 mls/hr Levetiracetam 1,000 mg/ Sodium (Chloride) 110 mls @ 420 mls/hr IVPB Q12H [facility] Last Admin: 08/09/17 14:24 Dose: 420 mls/hr Acyclovir 600 mg/ Sodium (Chloride) 100 mls @ 100 mls/hr IV Q8H [facility] Stop: 08/29/17 23:59 Last Admin: 08/09/17 20:00 Dose: 100 mls/hr Valproate Sodium 750 mg/ (Sodium Chloride) 107.5 mls @ 100 mls/hr IVPB Q12H [facility] Last Admin: 08/09/17 11:44 Dose: 100 mls/hr Ceftriaxone Sodium 2 gm/ (Sodium Chloride) 100 mls @ 100 mls/hr IVPB Q24H [facility] Last Admin: 08/09/17 15:10 Dose: 100 mls/hr Lactobacillus Acidophilus (Bacid Acidophilus) 1 cap PO BID [facility] Last Admin: 08/09/17 17:01 Dose: 1 cap Losartan Potassium (Cozaar) 25 mg PO DAILY [facility] Last Admin: 08/09/17 14:23 Dose: Not Given Metoprolol Tartrate (Lopressor) 5 mg IVP Q6H [facility] Last Admin: 08/09/17 22:12 Dose: 5 mg Rifampin (Rifampin Cap) 300 mg PO TID [facility] Last Admin: 08/09/17 17:02 Dose: 300 mg Rosuvastatin Calcium (Crestor) 40 mg PO HS [facility] Last Admin: 08/09/17 22:04 Dose: 40 mg Spironolactone (Aldactone) 25 mg PO BID [facility] Last Admin: 08/08/17 10:34 Dose: 25 mg - Labs Labs: 08/09/17 07:03 08/09/17 07:03 PT 14.6 SECONDS (9.7-12.2) H 08/01/17 19:55 INR 1.3 08/01/17 19:55 APTT 47 SECONDS (21-34) H 08/01/17 19:55 - Constitutional Appears: No Acute Distress, Chronically Ill - Head Exam Head Exam: NORMAL INSPECTION - Eye Exam Eye Exam: PERRL Pupil Exam: Unequal (SLUGGISH TO REACT) - ENT Exam ENT Exam: Mucous Membranes Moist - Respiratory Exam Respiratory Exam: Clear to Ausculation Bilateral, NORMAL BREATHING PATTERN - Cardiovascular Exam Cardiovascular Exam: REGULAR RHYTHM, +S1, +S2 - GI/Abdominal Exam GI & Abdominal Exam: Soft, Normal Bowel Sounds - Extremities Exam Extremities Exam: Joint Swelling (LT JT .SLIGHTLY SWOLLEN, +VE EFFUSION ,NO WARMTH OR ERYTHEMA.). absent: Calf Tenderness - Neurological Exam Neurological Exam: Altered Additional comments: RT UPPER EXTREMITY FLACCID WEAKNESS - Psychiatric Exam Psychiatric exam: Flat Affect - Skin Skin Exam: Warm. absent: Rash Assessment and Plan (1) New onset seizure Status: Acute (2) Hypokalemia Status: Acute (3) Hyponatremia Status: Acute (4) PAF (paroxysmal atrial fibrillation) Status: Acute (5) Septic arthritis Status: Chronic (6) Osteomyelitis of left knee region Status: Acute (7) H/O mitral valve replacement Status: Chronic (8) Diabetes mellitus Status: Chronic - Assessment and Plan (Free Text) Assessment: NEW ONSET OF SEIZURES - R/O MENINGO-ENCEPHALITIS VIRAL VS BACTERIAL - MSSA SEPTIC ARTHRITIS LEFT KNEE/WITH PSEUDOGOUT /? OSTEOMYLITIS -S/P ARTHROSCOPIC IRRIGATION/DEBRIDEMENT, LEFT KNEE ARTHROSCOPIC PATELLAR MEDIAL /LATERAL MENISCECTOMY AND EXTENSIVE SYNOVECTOMY/CHONDROPLASTY TROCHLEA 07/19/17 - PROSTHETIC MITRAL- VALVE ENDOCARDITIS.(+VE VEGETATIONS could NOT BE RULED OUT ON 2-d ECHO ). -HX OF CABG /MVR. -CONGESTIVE HEART FAILURE. -PAROXSYSMAL ATRIAL FIBRILLATION. -ELECTROLYTE IMBALANCE -SIADH -DM-2 -RHEUMATOID ARTHRITIS/OSTEOPOROSIS BY HISTORY. PLAN . CONTINUE ON IV ACYCLOVIR 600MG IV Q 8HRLY 08/08/17 ON IV ROCEPHIN 2GM IV Q 24HRLY. 08/08/17 ON IV DEXAMETHASONE 10MG IV LD- F/U -6MG Q6HRLY X 4DAYS 08/08/17. CONTINUE IV VANCOMYCIN 1GM LD , F/U BY 750MG IV Q 12HRLY 08/03/17 CONTINUE PO RIFAMPIN 300MG PO TID. F/U MRI BRAIN REPEAT TODAY F/U CSF STUDIES -P
[2017-08-10] MEDS: Valproate 750 MG in Sodium Chloride 0.9% 100 ML IVPB SCH
[2017-08-10] MEDS: levETIRAcetam 1,000 MG in Sodium Chloride 0.9% 100 ML IVPB SCH (01:30)
[2017-08-10] MEDS: Vancomycin 750mg/NS 150 ml 150 ML IVPB SCH ×2 (01:30→12:44)
[2017-08-10] MEDS: Albuterol-Ipratrop 3 mg / 0.5 (3 ml) UD INH SCH ×4 (02:09→19:16)
[2017-08-10] MEDS: Metoprolol 1 mg/ml Inj IVP SCH ×2 (03:21→09:55)
[2017-08-10] MEDS: Dexamethasone 4 mg/1 ml IVP SCH ×4 (03:22→21:16)
[2017-08-10 07:10] LABS: BASO % 1.1 % (0.0-2.0); EOS % 0.9 % (0.0-4.0); HEMOGLOBIN 7.8 g/dL (11.0-16.0); LYMPH % 27.3 % (20.0-40.0); MEAN CELL VOLUME 88.2 fL (81.0-99.0); MEAN CORPUSCULAR HEMOGLOBIN 29.2 pg (27.0-31.0); MEAN CORPUSCULAR HGB CONC 33.1 g/dL (33.0-37.0); MEAN PLATELET VOLUME 8.5 fL (7.2-11.7); MONO # 0.3 K/uL (0.0-0.8); MONO % 7.7 % (0.0-10.0); NEUT # 2.4 K/uL (1.8-7.0); NRBC % 0.1 % (0.0-2.0); RBC 2.68 Mil/uL (3.80-5.20); RED CELL DISTRIBUTION WIDTH 17.4 % (11.5-14.5); WHITE BLOOD COUNT 3.8 K/uL (4.8-10.8)
[2017-08-10 07:26] LABS: ALB/GLOB RATIO 0.5 (1.0-2.1); ALBUMIN 2.3 g/dL (3.5-5.0); ALT/SGPT 15 U/L (9-52); AST/SGOT 32 U/L (14-36); BLOOD UREA NITROGEN 21 mg/dL (7-17); CALCIUM 8.1 mg/dl (8.6-10.4); GFR AFRICAN-AMERICAN > 60; GFR NON-AFRICAN AMERICAN > 60
[2017-08-10] MEDS: Lactobacillus Acidophilus 500 MU Cap PO SCH ×2 (10:32→17:18)
[2017-08-10] MEDS: Clotrimazole 1% Cream(30 gm) TOP SCH ×2 (10:34→17:19)
[2017-08-10] MEDS: Lacosamide 200mg/20ml 100 MG in Sodium Chloride 0.9% 100 ML IV SCH ×2 (10:35→21:58)
--- NOTE | 2017-08-10 11:24 | CP.PCM.PN ---
Subjective - Date & Time of Evaluation Date of Evaluation: 08/10/17 Time of Evaluation: 11:22 - Subjective Subjective: Hospitalist Progress Note Patient was seen and examined at 11:22 AM 08/10/17 ICU BED #6 Patient is awake with NGT and NONrepsonsive to questioning therefore ROS is NOT possible. EXAM: - Constitutional Appears: Non-toxic, No Acute Distress,Twitching of the face not present at the time of my exam - Head Exam Head Exam: NORMAL INSPECTION - Eye Exam Eye Exam: Pupils are reactive to light. Bilateral pupils are round and reactive to light - Neck Exam Neck Exam: NO cervical/supraclavicular/submandibular lymphadenopathy, NO thyromegaly - Respiratory Exam Respiratory Exam: Clear to Ausculation Bilateral, NORMAL BREATHING PATTERN. absent: Rales, Rhonchi, Wheezes - Cardiovascular Exam Cardiovascular Exam: Normal +S1, +S2, NO M/R/G - GI/Abdominal Exam GI & Abdominal Exam: Soft, ND, BSX4 are now normal, NO guarding, NO rebound tenderness - Extremities Exam Extremities Exam: NO edema present in the arms and legs, Capillary refill is 2 seconds, Pulses are strong and equal, Right Arm PICC Line Left knee edema without erythema - Neurological Exam Neurological Exam: Awake with twitching no longer present at the time of my exam. - Skin Skin Exam: Bilateral groin area with a rash that is erythematous with scalloping borders, Lumbar/Sacral blanchable erythema Assessment and Plan (1) New onset seizure Assessment & Plan: * 08/01: per review of ED triage note: Via ALS from [facility], prior notification of resident experiencing ''jerky movements few secs for a total of 3 episodes''; seizure-like activity witnessed by ALS, treated with ATIVAN 2MG IV GIVEN VIA PICC LINE TO RT ARM PER REPORT GIVEN; on NRB 100%, ITT=360ya/d * 08/01: Per review of ED note: In ambulance, given Ativan 2mg on route, NIHSS: 29 (noted for dysarthria and profound neglect does not recognize own hand or oreitns to one side. ED attempted to reverse with Flumazenil given patient appeared comatose. Intubated in the ED for airway protection with etomidate * Code stroke 08/01/17 GCS: 4 * Factors for seizure activity: * Precipitating factors: hyponatremia, hypokalemia, hypomagnesium * Antibiotic side effect: gentamicin (seizure, confusion, lethargy per uptodate ), rifampin (fatigue, drowsiness, confusion), Cefazolin (seizure) * pain medication: tramadol * Imaging: * CT head (08/01/17): nonspecific white matter changes. Acute infarction may be CT occult within first 24 hours. If a focal deficit persists, consider for further evaulation. Atherosclerotic disease of intracranial arteries. probable chronic lacunar infarcts within basal ganglia. * CT Head and neck (08/01/17): no flow limiting cervical cartoid artery stenosis or vessel occlusion. Patent vertebral arteries * CT Head (08/02/17): no evidence of acute infarct. Chronic microvascular white matter ischemic change. otherwise unremarkable. * MRI Brain (08/05/17): NO acute intracranial hemorrhage. Moderate chronic white matter changes with scattered small basal nuclei, brain stem, and left cerebellar lacunar infarcts * MRI Neck (08/05/17): NO evidence of any significant stenosis of the carotid arteries * MRI Brain (08/05/17): Right distal Posterior Cerebral Artery can't be visualized but this may be artifactual vs occlusion can't be excluded. * MRI Brain with and without contrast (08/09/17): No evidence of abnormal signal , edema, or enhancement in the cerebral cortex to suggest encephalitis and active infectious process. NO evidence of abnormal leptomeningeal enhancement * Neurology (Dr. Cornejo/Josh) on board-->help appreciated * F/U EEG from morning 08/08/17 * Vimpat 100 mg IVP Q12H * Keppra increased to 1,500 mg IV Q12H 08/10/17 * Valproic Acid increased to 1,000 mg IV Q12H 08/10/17 * Acyclovir 600 mg IV Q8H added 08/08/17 * Patient for Lumbar Tap 08/08/17 by ICU Team and the following studies have been ordered and will need to be followed up: * Tube 1: cell count with differential, protein, glucose, Gram Stain, Cryptococcal Ag, Bacterial Ag, VDRL * Tube 2: HSV 1 PCR, HSV 2 PCR, AFB PCR, WNV PCR, Lyme PCR * Tube 3: Bacterial Culture, AFB Smear and Culture, Fungal Smear and Culture, HSV Culture, Cytology, Anti-NMDAR Antibodies to look for O-Khwqzy-F-Aspartate Receptor Abs * Ceftriaxone 2 gram IV Q24H started 08/08/17 * Dexamethasone 10 mg IV x 1 dose followed by 6 mg IV Q6H through 08/12/17 * PICC line (had been placed 07/24/17). * Monitor electrolytes Status: Acute (2) Hypokalemia/Hypomagnesemia Assessment & Plan: * Replete as needed Status: Acute (3) Hyponatremia/SIADH Assessment & Plan: * Nephrology (Dr. Eddy) on the case-->help appreciated * SIADH * Could also be secondary to the Keppra? * Patient has received Tolvaptan 30 mg PO 1x/day on 08/03/17/, 08/04/17, 08/05/17, 08/06/17. However patient is also on Rifampin (as part of treatment for Left Knee Septic Arthritis) and this may interfere with the Tolvaptan. * Aldactone 25 mg PO Q12H is on HOLD Status: Acute (4) Septic arthritis Assessment & Plan: * Infectious Disease (Dr. Jannie Avina) on the case-->help appreciated * From last admission: * On 07/19/17: Left knee arthroscopic. #1 I&D. #2 extensive synovectomy. #3 synovial biopsy and culture acquisition. #4 partial medial and lateral menisectomies. #5 chondroplasty trochlea * Post-Operative Diagnoses: Left knee #1 septic arthritis. #2 inflammatory synovitis. #3 crystal arthropathy/ pseudogout. #4 deg/complex medial meniscal tear. #5 deg/ complex lateral meniscal tear. #6 chondromalacia trochlea/MFC/ LFC, early DJD patella * 07/19/17: MSSA in Left knee and left Synovial sample * 07/16/17: Blood culture: no growth after 5 days * 07/23/17: Blood culture: no growth after 5 days * Patient was discharged on Ancef, Rifampin, and gentamicin. MICS available (07/26) and came back on 08/01/17. * Gentamicin Sulfate 70mg IVPB Q24H (active 08/04/17) X 5 bags with last dose on 08/08/17 * Monitor renal function * Rifampin 300mg PO TID (08/02/17) * Will impact Samsca * Vancomycin 750mg IVPB Q12H (active since 08/03/17) * Monitor renal function * She will need a total of 6 weeks of Antibiotics * Orthopedics LONA Ann removed sutures 08/07/17 Status: Chronic (5) H/O mitral valve replacement (bioprosthetic valve) Assessment & Plan: * Cardiology (Dr. Rowan) on the case-->help appreciated; Dr. Rush covering this weekend * Will need to follow-up in regards anticoagulation such as aspirin in regards to bioprosthetic valvue * Per cardiology, do not start chemical anticoagulation given recurrent history of GI bleeding * Echocardiogram (08/02/17): No ASD seen. * Echocardiogram (07/22/17): limited study, vegetation on MV cannot be excluded. Rec. ASTRID to define MV/Calcified mitral ring? * Echocardiogram (07/01/17): systolic function is severely impaired. Anterior and septa; aldridge reveal dyskinesis with wall thinning. (indicative of prior transmural IA), inferior wall is severely hypokinestic, lateral wall is mod to severely hypokinetic, Left atrium is moderately dilated, right atrium is moderately dilated, mild concentric left ventricular hypertrophy, mild mitral valve stenosis, * Cardiac cath: severe multivessel coronary artery disease, severe left ventricular systolic dysfunction (2017) * Hx CABG * Prosthetic valve * NO ASTRID considering findings on MRI Brain 08/05/17 that showed chronic lacunar infarcts Status: Chronic (6) Diabetes mellitus Assessment & Plan: * [id number]: 5.1 * Controlled * Accuchecks Q6H Status: Chronic (7) Hypertension Assessment & Plan: * Lopressor 50mg PO BID * Crestor 2.5mg POqHS * Cozaar 25mg PO daily Status: Chronic (8) Hx Coronary artery disease/CABG Status: Chronic * Lopressor 50mg PO BID * Crestor 2.5mg POqHS * Cozaar 25mg PO daily (9) Severe systolic congestive heart failure Assessment & Plan: * Lopressor, Cozaar * On last admission recommends for outpatient AICD by Dr Rowan Status: Chronic (10) Atelectasis Assessment & Plan: * CT Chest (08/02/17): small right pleural effusion and right lower lobe subsegmental atelectasis. Opacity seen at right lung base on earlier chest radiograph of the same date was likely artifactual due to overlying medical equipment Status: Acute (11) Paroxysmal Atrial Fibrillation Assessment & Plan: * Lopressor 5mg IVPQ6H * Lopressor 50mg PO BID * Per cardiology, hold chemical anticoagulation, patient has history of recurrent GI bleed, awaiting brain MRI, may or may not need ASTRID Status: Acute (12) Fungal Rash * Inner groin folds and back side * Lotrimin 1% cream (13) Prophylactic measure Assessment & Plan: * Heparin 5000 units [id number] was placed on HOLD for Lumbar Tap * Protonix 40mg IVP Q12H * Bacid 1 cap PO BID * Tylenol 650 mg Q6H PRN Fever * Duoneb Q6H PRN * PT/OT eval * Wound care and Niece at the bedside were updated. Harsh Stokes D.O. Objective - Vital Signs/Intake and Output Vital Signs (last 24 hours): Temp Pulse Resp BP Pulse Ox 98.2 F 89 20 127/66 99 08/10/17 08:00 08/10/17 11:02 08/10/17 11:02 08/10/17 11:02 08/10/17 11:02 Intake and Output: 08/10/17 08/10/17 06:59 18:59 Intake Total 1090 150 Output Total 630 120 Balance 460 30 - Medications Medications: Current Medications Acetaminophen (Tylenol 650mg/20.3ml Solution Ud) 650 mg PO Q6H PRN PRN Reason: Temperature >100.4 Last Admin: 08/06/17 20:57 Dose: 650 mg Albuterol/Ipratropium (Duoneb 3 Mg/0.5 Mg (3 Ml) Ud) 3 ml INH RQ6 [facility] Last Admin: 08/10/17 08:11 Dose: 3 ml Clotrimazole (Lotrimin 1%) 1 gm TOP BID [facility] Last Admin: 08/10/17 10:34 Dose: 1 applic Dexamethasone (Decadron Inj) 6 mg IVP Q6H [facility] Stop: 08/12/17 22:00 Last Admin: 08/10/17 10:32 Dose: 6 mg Dextrose (Dextrose 50% Inj) 0 ml IV STAT PRN; Protocol PRN Reason: Hypoglycemia Protocol Last Admin: 08/03/17 17:55 Dose: 50 ml Heparin Sodium (Porcine) (Heparin) 5,000 units SC Q12 [facility] Last Admin: 08/10/17 10:34 Dose: 5,000 units Lacosamide 100 mg/ Sodium (Chloride) 110 mls @ 110 mls/hr IV Q12H [facility] Last Admin: 08/10/17 10:35 Dose: 110 mls/hr Vancomycin HCl (Vancocin 750mg/Ns 150 Ml) 150 mls @ 100 mls/hr IVPB Q12H [facility] Last Admin: 08/10/17 01:30 Dose: 100 mls/hr Acyclovir 600 mg/ Sodium (Chloride) 100 mls @ 100 mls/hr IV Q8H [facility] Stop: 08/29/17 23:59 Last Admin: 08/10/17 03:24 Dose: 100 mls/hr Ceftriaxone Sodium 2 gm/ (Sodium Chloride) 100 mls @ 100 mls/hr IVPB Q24H [facility] Last Admin: 08/09/17 15:10 Dose: 100 mls/hr Levetiracetam 1,500 mg/ Sodium (Chloride) 115 mls @ 460 mls/hr IVPB Q12H [facility] Valproate Sodium 1,000 mg/ (Sodium Chloride) 110 mls @ 100 mls/hr IVPB Q12H [facility] Lactobacillus Acidophilus (Bacid Acidophilus) 1 cap PO BID [facility] Last Admin: 08/10/17 10:32 Dose: 1 cap Losartan Potassium (Cozaar) 25 mg PO DAILY [facility] Last Admin: 08/09/17 14:23 Dose: Not Given Metoprolol Tartrate (Lopressor) 50 mg PO BID [facility] Last Admin: 08/10/17 10:34 Dose: 50 mg Rifampin (Rifampin Cap) 300 mg PO TID [facility] Last Admin: 08/10/17 10:34 Dose: 300 mg Rosuvastatin Calcium (Crestor) 40 mg PO HS [facility] Last Admin: 08/09/17 22:04 Dose: 40 mg Spironolactone (Aldactone) 25 mg PO BID [facility] Last Admin: 08/08/17 10:34 Dose: 25 mg - Labs Labs: 08/10/17 06:40 08/10/17 06:40 PT 14.6 SECONDS (9.7-12.2) H 08/01/17 19:55 INR 1.3 08/01/17 19:55 APTT 47 SECONDS (21-34) H 08/01/17 19:55
--- NOTE | 2017-08-10 12:30 | CP.PCM.PN ---
Subjective - Date & Time of Evaluation Date of Evaluation: 07/10/17 Time of Evaluation: 12:00 - Subjective Subjective: Patient examined at bedside, awake, and tracks. Blinks to threat. Continues to have what appears to be focal motor seizure of right arm and face, albeit less pronounced. Trial of 2mg IV ativan showed only slight improvement in tic. EEG: report dictated: --initial eeg showed brief 2 second seizure in left temporal lobe with triphasics repeat eeg on saturday showed: PLEDS in the left temporal and frontal lobe, 3 discrete seizures evolving from the left temporal, subclinical. Focal right arm clinical seizures were not present during the EEG, as i was bedside reading it, all these findings were subclinical. MRi Brain: shows enhancement in the temporal and parietal, left cortical region. neuro exam: pupils 3mm-2mm with light. +dolls eyes, blinks to threat, +gag, Right sided plegia, moves left arm semipurposely, ie scratches eye no facial droop, moving left leg as well. asked patient to squeeze hand, and she moved finger.. non verbal +2dtr ul and ll bl. Toes downgoing. no clonus. Objective - Vital Signs/Intake and Output Vital Signs (last 24 hours): Temp Pulse Resp BP Pulse Ox 98.2 F 89 20 127/66 99 08/10/17 08:00 08/10/17 11:02 08/10/17 11:02 08/10/17 11:02 08/10/17 11:02 Intake and Output: 08/10/17 08/10/17 06:59 18:59 Intake Total 1090 430 Output Total 630 220 Balance 460 210 - Medications Medications: Current Medications Acetaminophen (Tylenol 650mg/20.3ml Solution Ud) 650 mg PO Q6H PRN PRN Reason: Temperature >100.4 Last Admin: 08/06/17 20:57 Dose: 650 mg Albuterol/Ipratropium (Duoneb 3 Mg/0.5 Mg (3 Ml) Ud) 3 ml INH RQ6 [facility] Last Admin: 08/10/17 08:11 Dose: 3 ml Clotrimazole (Lotrimin 1%) 1 gm TOP BID [facility] Last Admin: 08/10/17 10:34 Dose: 1 applic Dexamethasone (Decadron Inj) 6 mg IVP Q6H [facility] Stop: 08/12/17 22:00 Last Admin: 08/10/17 10:32 Dose: 6 mg Dextrose (Dextrose 50% Inj) 0 ml IV STAT PRN; Protocol PRN Reason: Hypoglycemia Protocol Last Admin: 08/03/17 17:55 Dose: 50 ml Heparin Sodium (Porcine) (Heparin) 5,000 units SC Q12 [facility] Last Admin: 08/10/17 10:34 Dose: 5,000 units Lacosamide 100 mg/ Sodium (Chloride) 110 mls @ 110 mls/hr IV Q12H [facility] Last Admin: 08/10/17 10:35 Dose: 110 mls/hr Vancomycin HCl (Vancocin 750mg/Ns 150 Ml) 150 mls @ 100 mls/hr IVPB Q12H [facility] Last Admin: 08/10/17 01:30 Dose: 100 mls/hr Acyclovir 600 mg/ Sodium (Chloride) 100 mls @ 100 mls/hr IV Q8H [facility] Stop: 08/29/17 23:59 Last Admin: 08/10/17 11:53 Dose: 100 mls/hr Ceftriaxone Sodium 2 gm/ (Sodium Chloride) 100 mls @ 100 mls/hr IVPB Q24H [facility] Last Admin: 08/09/17 15:10 Dose: 100 mls/hr Levetiracetam 1,500 mg/ Sodium (Chloride) 115 mls @ 460 mls/hr IVPB Q12H [facility] Valproate Sodium 1,000 mg/ (Sodium Chloride) 110 mls @ 100 mls/hr IVPB Q12H [facility] Lactobacillus Acidophilus (Bacid Acidophilus) 1 cap PO BID [facility] Last Admin: 08/10/17 10:32 Dose: 1 cap Losartan Potassium (Cozaar) 25 mg PO DAILY [facility] Last Admin: 08/09/17 14:23 Dose: Not Given Metoprolol Tartrate (Lopressor) 50 mg PO BID [facility] Last Admin: 08/10/17 10:34 Dose: 50 mg Rifampin (Rifampin Cap) 300 mg PO TID [facility] Last Admin: 08/10/17 10:34 Dose: 300 mg Rosuvastatin Calcium (Crestor) 40 mg PO HS [facility] Last Admin: 08/09/17 22:04 Dose: 40 mg Spironolactone (Aldactone) 25 mg PO BID [facility] Last Admin: 08/08/17 10:34 Dose: 25 mg - Labs Labs: 02/24/18 06:40 08/10/17 06:40 PT 14.6 SECONDS (9.7-12.2) H 08/01/17 19:55 INR 1.3 08/01/17 19:55 APTT 47 SECONDS (21-34) H 08/01/17 19:55 Assessment and Plan - Assessment and Plan (Free Text) Assessment: 72 yr old woman with differential of encephalitis, herpes, nonspecific viral with PLEDS and differential of Epilepsia partialis continua. EPC is an entity that occurs with clinical twitching but is not a seizure. We will need to capture this on EEG, which we can repeat on Saturday, for 1 hour. CSF so far is not helpful in terms of diagnosing herpes, as it is not clearly sanguinous. Plan: 1. Continue acyclovir 2. Increase depakote to 1500 mg bid Check amylase and lipase in 24 hours, as well as ammonia 3. Continue vimpat at 200 mg iv bid 4. Increase keppra to 1500 mg bid. 5. Physical therapy passive range of motion 6. Await csf pcr hsv titers Dr. Moreno
[2017-08-10] MEDS: Valproate 1,000 MG in Sodium Chloride 0.9% 100 ML IVPB SCH ×2 (12:42→23:18)
[2017-08-10] MEDS: levETIRAcetam 1,500 MG in Sodium Chloride 0.9% 100 ML IVPB SCH (13:34)
[2017-08-10] MEDS: cefTRIAXone 2 GM in Sodium Chloride 0.9% 100 ML IVPB SCH (15:35)
--- NOTE | 2017-08-10 19:26 | CP.PCM.PN ---
Subjective - Date & Time of Evaluation Date of Evaluation: 08/10/17 Time of Evaluation: 19:25 - Subjective Subjective: afebrile, vss, AWAKE BUT NONVERBAL RT UPPER EXTREMITY FLACCID PARESIS NO MORE TICS OF THE FACE OR UPPER EXTREMITY/MYOCLONIC JERKS RT. UPPER ARM. ? SEIZURES. NEUROLOGY FOLLOW-UP NOTED.. CSF STUDIES -?ASEPTIC WBC-0 RBC -2 GLUCOSE-N PROTEINS N. REPEAT MRI BRAIN NOTED. 08/09/17 NO EVIDENCE OF ABNORMAL SIGNAL, EDEMA OR ENHANCEMENT IN CEREBRAL CORTEX TO SUGGEST ENCEPHALITIS AND ACTIVE INFECTIOUS PROCESS. NO EVIDENCE OF ABNORMAL LEPTOMENINGEAL ENHANCEMENT. AGREE WITH NEUROLOGY.CLINICAL PICTURE SUSPICIOUS OF VIRAL ENCEPHLOMYLITIS/ACUTE FLACCID PARALYSIS ?HSV/ NMDAR ACUTE DISSEMINATED ENCEPHALOMYELITIS ,WNV, ARBOVIRUSES, ENTEROVIRUSES D-68,D71. PLAN . CONTINUE IV ACYCLOVIR. IV DEXAMETHASONE ORDERED. CONSIDER ? IVIG IF OK WITH NEUROLOGY DC IV VANCOMYCIN CONTINUE IV ROCEPHIN 2GM IV Q 24HRLY. PO RIFAMPIN 300MG PO TID . PER NEURO -EEG SATURDAY. Objective - Vital Signs/Intake and Output Vital Signs (last 24 hours): Temp Pulse Resp BP Pulse Ox 98.5 F 82 18 111/62 99 08/10/17 16:00 08/10/17 18:02 08/10/17 18:02 08/10/17 18:02 08/10/17 18:02 Intake and Output: 08/10/17 08/11/17 18:59 06:59 Intake Total 1360 Output Total 585 Balance 775 - Medications Medications: Current Medications Acetaminophen (Tylenol 650mg/20.3ml Solution Ud) 650 mg PO Q6H PRN PRN Reason: Temperature >100.4 Last Admin: 08/06/17 20:57 Dose: 650 mg Albuterol/Ipratropium (Duoneb 3 Mg/0.5 Mg (3 Ml) Ud) 3 ml INH RQ6 [facility] Last Admin: 08/10/17 19:16 Dose: 3 ml Clotrimazole (Lotrimin 1%) 1 gm TOP BID [facility] Last Admin: 08/10/17 17:19 Dose: 1 applic Dexamethasone (Decadron Inj) 6 mg IVP Q6H [facility] Stop: 08/12/17 22:00 Last Admin: 08/10/17 15:34 Dose: 6 mg Dextrose (Dextrose 50% Inj) 0 ml IV STAT PRN; Protocol PRN Reason: Hypoglycemia Protocol Last Admin: 08/03/17 17:55 Dose: 50 ml Heparin Sodium (Porcine) (Heparin) 5,000 units SC Q12 [facility] Last Admin: 08/10/17 10:34 Dose: 5,000 units Lacosamide 100 mg/ Sodium (Chloride) 110 mls @ 110 mls/hr IV Q12H [facility] Last Admin: 08/10/17 10:35 Dose: 110 mls/hr Vancomycin HCl (Vancocin 750mg/Ns 150 Ml) 150 mls @ 100 mls/hr IVPB Q12H [facility] Last Admin: 08/10/17 12:44 Dose: 100 mls/hr Acyclovir 600 mg/ Sodium (Chloride) 100 mls @ 100 mls/hr IV Q8H [facility] Stop: 08/29/17 23:59 Last Admin: 08/10/17 11:53 Dose: 100 mls/hr Ceftriaxone Sodium 2 gm/ (Sodium Chloride) 100 mls @ 100 mls/hr IVPB Q24H [facility] Last Admin: 08/10/17 15:35 Dose: 100 mls/hr Levetiracetam 1,500 mg/ Sodium (Chloride) 115 mls @ 460 mls/hr IVPB Q12H [facility] Last Admin: 08/10/17 13:34 Dose: 460 mls/hr Valproate Sodium 1,000 mg/ (Sodium Chloride) 110 mls @ 100 mls/hr IVPB Q12H [facility] Last Admin: 08/10/17 12:42 Dose: 100 mls/hr Lactobacillus Acidophilus (Bacid Acidophilus) 1 cap PO BID [facility] Last Admin: 08/10/17 17:18 Dose: 1 cap Losartan Potassium (Cozaar) 25 mg PO DAILY [facility] Last Admin: 08/10/17 12:24 Dose: Not Given Metoprolol Tartrate (Lopressor) 50 mg PO BID [facility] Last Admin: 08/10/17 17:18 Dose: 50 mg Rifampin (Rifampin Cap) 300 mg PO TID [facility] Last Admin: 08/10/17 17:18 Dose: 300 mg Rosuvastatin Calcium (Crestor) 40 mg PO [facility] Last Admin: 08/09/17 22:04 Dose: 40 mg Spironolactone (Aldactone) 25 mg PO BID [facility] Last Admin: 08/08/17 10:34 Dose: 25 mg - Labs Labs: 08/10/17 06:40 08/10/17 06:40 PT 14.6 SECONDS (9.7-12.2) H 08/01/17 19:55 INR 1.3 08/01/17 19:55 APTT 47 SECONDS (21-34) H 08/01/17 19:55 - Constitutional Appears: No Acute Distress, Chronically Ill - Head Exam Head Exam: NORMAL INSPECTION - Eye Exam Eye Exam: PERRL - ENT Exam ENT Exam: Mucous Membranes Moist - Neck Exam Neck Exam: Normal Inspection - Respiratory Exam Respiratory Exam: Clear to Ausculation Bilateral - Cardiovascular Exam Cardiovascular Exam: REGULAR RHYTHM, +S1, +S2 - GI/Abdominal Exam GI & Abdominal Exam: Soft, Normal Bowel Sounds - Extremities Exam Extremities Exam: absent: Calf Tenderness, Pedal Edema (LEFT SLIGHTLY SWOLLEN/ SMALL EFFUSION.), Tenderness - Neurological Exam Neurological Exam: Altered, Awake - Psychiatric Exam Psychiatric exam: Flat Affect - Skin Skin Exam: Pallor, Warm Assessment and Plan (1) New onset seizure Status: Acute (2) Hypokalemia Status: Acute (3) Hyponatremia Status: Acute (4) PAF (paroxysmal atrial fibrillation) Status: Acute (5) Septic arthritis Status: Chronic (6) Osteomyelitis of left knee region Status: Acute (7) H/O mitral valve replacement Status: Chronic (8) Diabetes mellitus Status: Chronic - Assessment and Plan (Free Text) Assessment: NEW ONSET OF SEIZURES/ACUTE FLACCID PARALYSIS - ETIOLOGY /? VIRAL ENCEPHALOMYLITIS - MSSA SEPTIC ARTHRITIS LEFT KNEE/WITH PSEUDOGOUT /? OSTEOMYLITIS -S/P ARTHROSCOPIC IRRIGATION/DEBRIDEMENT, LEFT KNEE ARTHROSCOPIC PATELLAR MEDIAL /LATERAL MENISCECTOMY AND EXTENSIVE SYNOVECTOMY/CHONDROPLASTY TROCHLEA 07/19/17 - PROSTHETIC MITRAL- VALVE ENDOCARDITIS.(+VE VEGETATIONS could NOT BE RULED OUT ON 2-d ECHO ). -HX OF CABG /MVR. -CONGESTIVE HEART FAILURE. -PAROXSYSMAL ATRIAL FIBRILLATION. -ELECTROLYTE IMBALANCE -SIADH -DM-2 -RHEUMATOID ARTHRITIS/OSTEOPOROSIS BY HISTORY. PLAN . CONTINUE ON IV ACYCLOVIR 600MG IV Q 8HRLY 08/08/17 ON IV ROCEPHIN 2GM IV Q 24HRLY. 08/08/17 CONTINUE IV DEXAMETHASONE DC IV VANCOMYCIN 1GM LD , F/U BY 750MG IV Q 12HRLY 08/03/17 ( in view of leukopenia ) CONTINUE PO RIFAMPIN 300MG PO TID. ?IVGG IF OK WITH NEUROLOGY-TO DISCUSS. neuro workup in progress F/U CSF STUDIES -P
--- NOTE | 2017-08-10 20:32 | CP.PCM.PN ---
Subjective - Date & Time of Evaluation Date of Evaluation: 08/10/17 Time of Evaluation: 12:00 - Subjective Subjective: Patient given ativan earlier today, somnolent since then; Objective - Vital Signs/Intake and Output Vital Signs (last 24 hours): Temp Pulse Resp BP Pulse Ox 98.5 F 80 17 121/66 100 08/10/17 16:00 08/10/17 19:01 08/10/17 19:01 08/10/17 19:01 08/10/17 19:01 Intake and Output: 08/10/17 08/11/17 18:59 06:59 Intake Total 1360 40 Output Total 585 Balance 775 40 - Medications Medications: Current Medications Acetaminophen (Tylenol 650mg/20.3ml Solution Ud) 650 mg PO Q6H PRN PRN Reason: Temperature >100.4 Last Admin: 08/06/17 20:57 Dose: 650 mg Albuterol/Ipratropium (Duoneb 3 Mg/0.5 Mg (3 Ml) Ud) 3 ml INH RQ6 [facility] Last Admin: 08/10/17 19:16 Dose: 3 ml Clotrimazole (Lotrimin 1%) 1 gm TOP BID [facility] Last Admin: 08/10/17 17:19 Dose: 1 applic Dexamethasone (Decadron Inj) 6 mg IVP Q6H [facility] Stop: 08/12/17 22:00 Last Admin: 08/10/17 15:34 Dose: 6 mg Dextrose (Dextrose 50% Inj) 0 ml IV STAT PRN; Protocol PRN Reason: Hypoglycemia Protocol Last Admin: 08/03/17 17:55 Dose: 50 ml Heparin Sodium (Porcine) (Heparin) 5,000 units SC Q12 [facility] Last Admin: 08/10/17 10:34 Dose: 5,000 units Lacosamide 100 mg/ Sodium (Chloride) 110 mls @ 110 mls/hr IV Q12H [facility] Last Admin: 08/10/17 10:35 Dose: 110 mls/hr Vancomycin HCl (Vancocin 750mg/Ns 150 Ml) 150 mls @ 100 mls/hr IVPB Q12H [facility] Last Admin: 08/10/17 12:44 Dose: 100 mls/hr Acyclovir 600 mg/ Sodium (Chloride) 100 mls @ 100 mls/hr IV Q8H [facility] Stop: 08/29/17 23:59 Last Admin: 08/10/17 11:53 Dose: 100 mls/hr Ceftriaxone Sodium 2 gm/ (Sodium Chloride) 100 mls @ 100 mls/hr IVPB Q24H [facility] Last Admin: 08/10/17 15:35 Dose: 100 mls/hr Levetiracetam 1,500 mg/ Sodium (Chloride) 115 mls @ 460 mls/hr IVPB Q12H [facility] Last Admin: 08/10/17 13:34 Dose: 460 mls/hr Valproate Sodium 1,000 mg/ (Sodium Chloride) 110 mls @ 100 mls/hr IVPB Q12H [facility] Last Admin: 08/10/17 12:42 Dose: 100 mls/hr Lactobacillus Acidophilus (Bacid Acidophilus) 1 cap PO BID [facility] Last Admin: 08/10/17 17:18 Dose: 1 cap Losartan Potassium (Cozaar) 25 mg PO DAILY [facility] Last Admin: 08/10/17 12:24 Dose: Not Given Metoprolol Tartrate (Lopressor) 50 mg PO BID [facility] Last Admin: 08/10/17 17:18 Dose: 50 mg Rifampin (Rifampin Cap) 300 mg PO TID [facility] Last Admin: 08/10/17 17:18 Dose: 300 mg Rosuvastatin Calcium (Crestor) 40 mg PO HS [facility] Last Admin: 08/09/17 22:04 Dose: 40 mg Spironolactone (Aldactone) 25 mg PO BID [facility] Last Admin: 08/08/17 10:34 Dose: 25 mg - Labs Labs: 08/10/17 06:40 08/10/17 06:40 PT 14.6 SECONDS (9.7-12.2) H 08/01/17 19:55 INR 1.3 08/01/17 19:55 APTT 47 SECONDS (21-34) H 08/01/17 19:55 - Constitutional Appears: Non-toxic, No Acute Distress - Eye Exam Eye Exam: absent: Scleral icterus - ENT Exam ENT Exam: Mucous Membranes Moist - Respiratory Exam Respiratory Exam: absent: Rhonchi, Wheezes, Respiratory Distress - Cardiovascular Exam Cardiovascular Exam: RRR, +S1, +S2 - GI/Abdominal Exam GI & Abdominal Exam: Soft. absent: Distended, Tenderness - Extremities Exam Additional comments: minimal leg edema; - Neurological Exam Neurological Exam: absent: Alert, Awake - Psychiatric Exam Psychiatric exam: absent: Agitated - Skin Skin Exam: Warm. absent: Cyanosis Assessment and Plan (1) Hyponatremia Assessment & Plan: Much improved but no longer on loop diuretic; most of fluid intake is in form of meds in NS (~1L daily) and ~500 cc tube feeds; has propensity for recurrence of hyponatremia in the setting of severe CHF; continue to monitor; Status: Acute (2) CHF (congestive heart failure) Assessment & Plan: Severe systolic dysfunction; currently asymptomatic; diuretics being held as patient was just hypotensive; continue B-meredith and ARB; Status: Chronic (3) Septic arthritis Status: Chronic (4) Hypokalemia Status: Acute
[2017-08-11] MEDS: levETIRAcetam 1,500 MG in Sodium Chloride 0.9% 100 ML IVPB SCH ×2 (01:09→14:28)
[2017-08-11] MEDS: Albuterol-Ipratrop 3 mg / 0.5 (3 ml) UD INH SCH ×2 (01:10→07:30)
[2017-08-11] MEDS: Dexamethasone 4 mg/1 ml IVP SCH ×4 (03:10→21:56)
[2017-08-11 08:23] VITALS: RESP 20
--- NOTE | 2017-08-11 09:43 | CP.PCM.PN ---
Subjective - Date & Time of Evaluation Date of Evaluation: 08/11/17 Time of Evaluation: 09:39 - Subjective Subjective: Ms. Mobley was seen and examined at the bedside. She remains non-verbal, opens her eyes with tactile stimuli. She has the focal seizure noted in her bilateral eyebrows and right upper extremity.She remains with right upper extremity flaccid and occasional movement of the left upper extremity. There was no untoward events overnight. Objective - Vital Signs/Intake and Output Vital Signs (last 24 hours): Temp Pulse Resp BP Pulse Ox 98.2 F 81 20 135/77 96 08/11/17 08:24 08/11/17 08:24 08/11/17 08:24 08/11/17 08:24 08/11/17 08:24 Intake and Output: 08/11/17 08/11/17 06:59 18:59 Intake Total 530 Output Total 600 Balance -70 - Medications Medications: Current Medications Acetaminophen (Tylenol 650mg/20.3ml Solution Ud) 650 mg PO Q6H PRN PRN Reason: Temperature >100.4 Last Admin: 08/06/17 20:57 Dose: 650 mg Clotrimazole (Lotrimin 1%) 1 gm TOP BID [facility] Stop: 08/17/17 10:00 Last Admin: 08/10/17 17:19 Dose: 1 applic Dexamethasone (Decadron Inj) 6 mg IVP Q6H [facility] Stop: 08/12/17 22:00 Last Admin: 08/11/17 03:10 Dose: 6 mg Dextrose (Dextrose 50% Inj) 0 ml IV STAT PRN; Protocol PRN Reason: Hypoglycemia Protocol Last Admin: 08/03/17 17:55 Dose: 50 ml Heparin Sodium (Porcine) (Heparin) 5,000 units SC Q12 [facility] Last Admin: 08/10/17 21:16 Dose: 5,000 units Lacosamide 100 mg/ Sodium (Chloride) 110 mls @ 110 mls/hr IV Q12H [facility] Last Admin: 08/10/17 21:58 Dose: 110 mls/hr Acyclovir 600 mg/ Sodium (Chloride) 100 mls @ 100 mls/hr IV Q8H [facility] Stop: 08/29/17 23:59 Last Admin: 08/11/17 03:00 Dose: 100 mls/hr Ceftriaxone Sodium 2 gm/ (Sodium Chloride) 100 mls @ 100 mls/hr IVPB Q24H [facility] Last Admin: 08/10/17 15:35 Dose: 100 mls/hr Levetiracetam 1,500 mg/ Sodium (Chloride) 115 mls @ 460 mls/hr IVPB Q12H [facility] Last Admin: 08/11/17 01:09 Dose: 460 mls/hr Fluconazole 100 mg/ (Miscellaneous) 50 mls @ 100 mls/hr IVPB DAILY [facility] Stop: 08/17/17 10:00 Valproate Sodium 1,500 mg/ (Sodium Chloride) 115 mls @ 0 mls/hr IVPB Q12 [facility] PRN Reason: Per Protocol Lactobacillus Acidophilus (Bacid Acidophilus) 1 cap PO BID [facility] Last Admin: 08/10/17 17:18 Dose: 1 cap Losartan Potassium (Cozaar) 25 mg PO DAILY [facility] Last Admin: 08/10/17 12:24 Dose: Not Given Metoprolol Tartrate (Lopressor) 50 mg PO BID [facility] Last Admin: 08/10/17 17:18 Dose: 50 mg Rifampin (Rifampin Cap) 300 mg PO TID [facility] Last Admin: 08/10/17 17:18 Dose: 300 mg Rosuvastatin Calcium (Crestor) 40 mg PO HS [facility] Last Admin: 08/10/17 21:16 Dose: 40 mg Spironolactone (Aldactone) 25 mg PO BID [facility] Last Admin: 08/08/17 10:34 Dose: 25 mg - Labs Labs: 08/10/17 06:40 08/10/17 06:40 PT 14.6 SECONDS (9.7-12.2) H 08/01/17 19:55 INR 1.3 08/01/17 19:55 APTT 47 SECONDS (21-34) H 08/01/17 19:55 - Constitutional Appears: No Acute Distress - Head Exam Head Exam: NORMAL INSPECTION - Eye Exam Additional comments: pupils 3mm-2mm with light. +dolls eyes, blinks to threat - Neurological Exam Neuro motor strength exam: Left Upper Extremity: 2/1, Right Upper Extremity: 0, Left Lower Extremity: 2/1, Right Lower Extremity: 0 Additional comments: She remains with good gag reflex, Right sided flaccid, moves left arm semi purposely, Assessment and Plan (1) Seizure Assessment & Plan: Case discussed with Dr. Moreno, continue all current medical regimen. Recommend to increase depakote from 100 mg IV BID to 1500 mg IV Q12, monitor depakote level, ammonia, and liver enzymes as needed. Status: Acute
--- NOTE | 2017-08-11 09:43 | CP.PCM.PN ---
Subjective - Date & Time of Evaluation Date of Evaluation: 08/11/17 Time of Evaluation: 09:15 - Subjective Subjective: Hospitalist Progress Note Patient was seen and examined at 9:15 AM 08/11/17 Bed 356 A Patient is awake with NGT and NONrepsonsive to questioning therefore ROS is NOT possible. EXAM: - Constitutional Appears: Non-toxic, No Acute Distress, Patient raising her eyebrows every 2 to 3 seconds - Head Exam Head Exam: NORMAL INSPECTION - Eye Exam Eye Exam: Pupils are reactive to light. Bilateral pupils are round and reactive to light - Neck Exam Neck Exam: NO cervical/supraclavicular/submandibular lymphadenopathy, NO thyromegaly - Respiratory Exam Respiratory Exam: Clear to Ausculation Bilateral, NORMAL BREATHING PATTERN. absent: Rales, Rhonchi, Wheezes - Cardiovascular Exam Cardiovascular Exam: Normal +S1, +S2, NO M/R/G - GI/Abdominal Exam GI & Abdominal Exam: Soft, ND, BSX4 are now normal, NO guarding, NO rebound tenderness, Midline Surgical Scar with easily reducible (nonerythematous, nonwarm) hernia present to the left lower portion of the scar. - Extremities Exam Extremities Exam: NO edema present in the arms and legs, Capillary refill is 2 seconds, Pulses are strong and equal, Right Arm PICC Line Left knee edema without erythema - Neurological Exam Neurological Exam: Awake but not answering questions - Skin Skin Exam: Bilateral groin area with a rash that is erythematous with scalloping borders, Lumbar/Sacral blanchable erythema Assessment and Plan (1) New onset seizure Assessment & Plan: * 08/01: per review of ED triage note: Via ALS from [facility], prior notification of resident experiencing ''jerky movements few secs for a total of 3 episodes''; seizure-like activity witnessed by ALS, treated with ATIVAN 2MG IV GIVEN VIA PICC LINE TO RT ARM PER REPORT GIVEN; on NRB 100%, AXD=[id number] * 08/01: Per review of ED note: In ambulance, given Ativan 2mg on route, NIHSS: 29 (noted for dysarthria and profound neglect does not recognize own hand or oreitns to one side. ED attempted to reverse with Flumazenil given patient appeared comatose. Intubated in the ED for airway protection with etomidate * Code stroke 2/15/18 GCS: 4 * Factors for seizure activity: * Precipitating factors: hyponatremia, hypokalemia, hypomagnesium * Antibiotic side effect: gentamicin (seizure, confusion, lethargy per uptodate ), rifampin (fatigue, drowsiness, confusion), Cefazolin (seizure) * pain medication: tramadol * Imaging: * CT head (08/01/17): nonspecific white matter changes. Acute infarction may be CT occult within first 24 hours. If a focal deficit persists, consider for further evaulation. Atherosclerotic disease of intracranial arteries. probable chronic lacunar infarcts within basal ganglia. * CT Head and neck (08/01/17): no flow limiting cervical cartoid artery stenosis or vessel occlusion. Patent vertebral arteries * CT Head (08/02/17): no evidence of acute infarct. Chronic microvascular white matter ischemic change. otherwise unremarkable. * MRI Brain (08/05/17): NO acute intracranial hemorrhage. Moderate chronic white matter changes with scattered small basal nuclei, brain stem, and left cerebellar lacunar infarcts * MRI Neck (08/05/17): NO evidence of any significant stenosis of the carotid arteries * MRI Brain (08/05/17): Right distal Posterior Cerebral Artery can't be visualized but this may be artifactual vs occlusion can't be excluded. * MRI Brain with and without contrast (08/09/17): No evidence of abnormal signal , edema, or enhancement in the cerebral cortex to suggest encephalitis and active infectious process. NO evidence of abnormal leptomeningeal enhancement * Neurology (Dr. Cornejo/Josh) on board-->help appreciated * F/U EEG from morning 08/08/17 * Vimpat 100 mg IVP Q12H * Keppra increased to 1,500 mg IV Q12H 08/10/17 * Valproic Acid increased to 1,500 mg IV Q12H 08/11/17 and follow up level on morning 08/12/17 * Acyclovir 600 mg IV Q8H added 08/08/17 * Patient for Lumbar Tap 08/08/17 by ICU Team and the following studies have been ordered and will need to be followed up: * Tube 1: cell count with differential, protein, glucose, Gram Stain, Cryptococcal Ag, Bacterial Ag, VDRL * Tube 2: HSV 1 PCR, HSV 2 PCR, AFB PCR, WNV PCR, Lyme PCR * Tube 3: Bacterial Culture, AFB Smear and Culture, Fungal Smear and Culture, HSV Culture, Cytology, Anti-NMDAR Antibodies to look for I-Mdaivy-V-Aspartate Receptor Abs * CSF Gram Stain is negative to date * CSF Fungal Culture preliminary is negative to date * CSF Mycobacterium Culture shows NO AFB to date * Ceftriaxone 2 gram IV Q24H started 08/08/17 * Dexamethasone 10 mg IV x 1 dose followed by 6 mg IV Q6H through 08/12/17 * PICC line (had been placed 07/24/17). * Monitor electrolytes Status: Acute (2) Hypokalemia/Hypomagnesemia Assessment & Plan: * Replete as needed Status: Acute (3) Hyponatremia/SIADH Assessment & Plan: * Nephrology (Dr. Eddy) on the case-->help appreciated * SIADH * Could also be secondary to the Keppra? * Patient has received Tolvaptan 30 mg PO 1x/day on 08/03/17/, 08/04/17, 08/05/17, 08/06/17. However patient is also on Rifampin (as part of treatment for Left Knee Septic Arthritis) and this may interfere with the Tolvaptan. * Aldactone 25 mg PO Q12H is on HOLD Status: Acute (4) Septic arthritis Assessment & Plan: * Infectious Disease (Dr. Jannie Avina) on the case-->help appreciated * From last admission: * On 07/19/17: Left knee arthroscopic. #1 I&D. #2 extensive synovectomy. #3 synovial biopsy and culture acquisition. #4 partial medial and lateral menisectomies. #5 chondroplasty trochlea * Post-Operative Diagnoses: Left knee #1 septic arthritis. #2 inflammatory synovitis. #3 crystal arthropathy/ pseudogout. #4 deg/complex medial meniscal tear. #5 deg/ complex lateral meniscal tear. #6 chondromalacia trochlea/MFC/ LFC, early DJD patella * 07/19/17: MSSA in Left knee and left Synovial sample * 07/16/17: Blood culture: no growth after 5 days * 07/23/17: Blood culture: no growth after 5 days * Patient was discharged on Ancef, Rifampin, and gentamicin. MICS available (07/26) and came back on 08/01/17. * Gentamicin Sulfate 70mg IVPB Q24H (active 08/04/17) X 5 bags with last dose on 08/08/17 * Monitor renal function * Rifampin 300mg PO TID (08/02/17) * Will impact Samsca * Vancomycin 750mg IVPB Q12H (active since 08/03/17) * Monitor renal function * She will need a total of 6 weeks of Antibiotics with STOP DATE for Rifampin and Vancomycin of 08/29/17 (before discontinuing on this date, please make sure this is ok with ID Dr. Jojo Avina) * Orthopedics LONA Portillo Stock removed sutures 08/07/17 Status: Chronic (5) H/O mitral valve replacement (bioprosthetic valve) Assessment & Plan: * Cardiology (Dr. Rowan) on the case-->help appreciated; Dr. Rush covering this weekend * Will need to follow-up in regards anticoagulation such as aspirin in regards to bioprosthetic valvue * Per cardiology, do not start chemical anticoagulation given recurrent history of GI bleeding * Echocardiogram (08/02/17): No ASD seen. * Echocardiogram (07/22/17): limited study, vegetation on MV cannot be excluded. Rec. ASTRID to define MV/Calcified mitral ring? * Echocardiogram (07/01/17): systolic function is severely impaired. Anterior and septa; aldridge reveal dyskinesis with wall thinning. (indicative of prior transmural NC), inferior wall is severely hypokinestic, lateral wall is mod to severely hypokinetic, Left atrium is moderately dilated, right atrium is moderately dilated, mild concentric left ventricular hypertrophy, mild mitral valve stenosis, * Cardiac cath: severe multivessel coronary artery disease, severe left ventricular systolic dysfunction (2017) * Hx CABG * Prosthetic valve * NO ASTRID considering findings on MRI Brain 08/05/17 that showed chronic lacunar infarcts Status: Chronic (6) Diabetes mellitus Assessment & Plan: * [id number]: 5.1 * Controlled * Accuchecks Q6H Status: Chronic (7) Hypertension Assessment & Plan: * Lopressor 50mg PO BID * Crestor 2.5mg POqHS * Cozaar 25mg PO daily Status: Chronic (8) Hx Coronary artery disease/CABG Status: Chronic * Lopressor 50mg PO BID * Crestor 2.5mg POqHS * Cozaar 25mg PO daily (9) Severe systolic congestive heart failure Assessment & Plan: * Lopressor, Cozaar * On last admission recommends for outpatient AICD by Dr Rowan Status: Chronic (10) Atelectasis Assessment & Plan: * CT Chest (08/02/17): small right pleural effusion and right lower lobe subsegmental atelectasis. Opacity seen at right lung base on earlier chest radiograph of the same date was likely artifactual due to overlying medical equipment Status: Acute (11) Paroxysmal Atrial Fibrillation Assessment & Plan: * Lopressor 5mg IVPQ6H * Lopressor 50mg PO BID * Per cardiology, hold chemical anticoagulation, patient has history of recurrent GI bleed, awaiting brain MRI, may or may not need ASTRID Status: Acute (12) Fungal Rash * Inner groin folds and back side * Lotrimin 1% cream (13) UTI Yeast * Started Diflucan 08/11/17 with STOP DATE 08/17/17 * Repeat Urine Culture ordered for 08/15/17 (14) Prophylactic measure Assessment & Plan: * Heparin 5000 units [id number] was placed on HOLD for Lumbar Tap * Protonix 40mg IVP Q12H * Bacid 1 cap PO BID * Tylenol 650 mg Q6H PRN Fever * Duoneb Q6H PRN * PT/OT eval * Wound care Harsh Stokes D.O. Objective - Vital Signs/Intake and Output Vital Signs (last 24 hours): Temp Pulse Resp BP Pulse Ox 98.2 F 81 20 135/77 96 08/11/17 08:24 08/11/17 08:24 08/11/17 08:24 08/11/17 08:24 08/11/17 08:24 Intake and Output: 08/11/17 08/11/17 06:59 18:59 Intake Total 530 Output Total 600 Balance -70 - Medications Medications: Current Medications Acetaminophen (Tylenol 650mg/20.3ml Solution Ud) 650 mg PO Q6H PRN PRN Reason: Temperature >100.4 Last Admin: 08/06/17 20:57 Dose: 650 mg Albuterol/Ipratropium (Duoneb 3 Mg/0.5 Mg (3 Ml) Ud) 3 ml INH RQ6 [facility] Last Admin: 08/11/17 01:10 Dose: 3 ml Clotrimazole (Lotrimin 1%) 1 gm TOP BID [facility] Stop: 08/17/17 10:00 Last Admin: 08/10/17 17:19 Dose: 1 applic Dexamethasone (Decadron Inj) 6 mg IVP Q6H [facility] Stop: 08/12/17 22:00 Last Admin: 08/11/17 03:10 Dose: 6 mg Dextrose (Dextrose 50% Inj) 0 ml IV STAT PRN; Protocol PRN Reason: Hypoglycemia Protocol Last Admin: 08/03/17 17:55 Dose: 50 ml Heparin Sodium (Porcine) (Heparin) 5,000 units SC Q12 [facility] Last Admin: 08/10/17 21:16 Dose: 5,000 units Lacosamide 100 mg/ Sodium (Chloride) 110 mls @ 110 mls/hr IV Q12H [facility] Last Admin: 08/10/17 21:58 Dose: 110 mls/hr Acyclovir 600 mg/ Sodium (Chloride) 100 mls @ 100 mls/hr IV Q8H [facility] Stop: 08/29/17 23:59 Last Admin: 08/11/17 03:00 Dose: 100 mls/hr Ceftriaxone Sodium 2 gm/ (Sodium Chloride) 100 mls @ 100 mls/hr IVPB Q24H [facility] Last Admin: 08/10/17 15:35 Dose: 100 mls/hr Levetiracetam 1,500 mg/ Sodium (Chloride) 115 mls @ 460 mls/hr IVPB Q12H [facility] Last Admin: 08/11/17 01:09 Dose: 460 mls/hr Valproate Sodium 1,000 mg/ (Sodium Chloride) 110 mls @ 100 mls/hr IVPB Q12H [facility] Last Admin: 08/10/17 23:18 Dose: 100 mls/hr Fluconazole 100 mg/ (Miscellaneous) 50 mls @ 100 mls/hr IVPB DAILY [facility] Stop: 08/17/17 10:00 Lactobacillus Acidophilus (Bacid Acidophilus) 1 cap PO BID [facility] Last Admin: 08/10/17 17:18 Dose: 1 cap Losartan Potassium (Cozaar) 25 mg PO DAILY [facility] Last Admin: 08/10/17 12:24 Dose: Not Given Metoprolol Tartrate (Lopressor) 50 mg PO BID [facility] Last Admin: 08/10/17 17:18 Dose: 50 mg Rifampin (Rifampin Cap) 300 mg PO TID [facility] Last Admin: 08/10/17 17:18 Dose: 300 mg Rosuvastatin Calcium (Crestor) 40 mg PO HS [facility] Last Admin: 08/10/17 21:16 Dose: 40 mg Spironolactone (Aldactone) 25 mg PO BID [facility] Last Admin: 08/08/17 10:34 Dose: 25 mg - Labs Labs: 08/10/17 06:40 08/10/17 06:40 PT 14.6 SECONDS (9.7-12.2) H 08/01/17 19:55 INR 1.3 08/01/17 19:55 APTT 47 SECONDS (21-34) H 08/01/17 19:55
[2017-08-11 09:55] LABS: BASO # 0.1 K/uL (0.0-0.2); BASO % 1.5 % (0.0-2.0); EOS % 0.4 % (0.0-4.0); HEMOGLOBIN 8.1 g/dL (11.0-16.0); LYMPH # 0.8 K/uL (1.0-4.3); LYMPH % 20.4 % (20.0-40.0); MEAN CELL VOLUME 88.6 fL (81.0-99.0); MEAN CORPUSCULAR HEMOGLOBIN 29.1 pg (27.0-31.0); MEAN CORPUSCULAR HGB CONC 32.9 g/dL (33.0-37.0); MEAN PLATELET VOLUME 8.8 fL (7.2-11.7); MONO # 0.3 K/uL (0.0-0.8); MONO % 8.9 % (0.0-10.0); NEUT # 2.7 K/uL (1.8-7.0); NEUT % 68.8 % (50.0-75.0); RBC 2.77 Mil/uL (3.80-5.20); RED CELL DISTRIBUTION WIDTH 17.5 % (11.5-14.5); WHITE BLOOD COUNT 3.9 K/uL (4.8-10.8)
[2017-08-11 10:07] LABS: ALB/GLOB RATIO 0.5 (1.0-2.1); ALBUMIN 2.3 g/dL (3.5-5.0); ALT/SGPT 20 U/L (9-52); AST/SGOT 26 U/L (14-36); BLOOD UREA NITROGEN 21 mg/dL (7-17); CALCIUM 8.6 mg/dl (8.6-10.4); GFR AFRICAN-AMERICAN > 60; GFR NON-AFRICAN AMERICAN 55
[2017-08-11] MEDS: Fluconazole IV 200mg/100 ml NS 100 MG in Premixed IV 1 EA IVPB SCH (12:13)
[2017-08-11] MEDS: Clotrimazole 1% Cream(30 gm) TOP SCH ×2 (12:15→17:57)
[2017-08-11] MEDS: Lactobacillus Acidophilus 500 MU Cap PO SCH ×2 (12:16→17:56)
[2017-08-11] MEDS: Valproate 1,500 MG in Sodium Chloride 0.9% 100 ML IVPB SCH ×2 (12:24→23:35)
[2017-08-11] MEDS: Lacosamide 200mg/20ml 100 MG in Sodium Chloride 0.9% 100 ML IV SCH (13:00)
[2017-08-11] MEDS: cefTRIAXone 2 GM in Sodium Chloride 0.9% 100 ML IVPB SCH (15:54)
[2017-08-12] MEDS: levETIRAcetam 1,500 MG in Sodium Chloride 0.9% 100 ML IVPB SCH ×2 (01:00→14:19)
[2017-08-12] MEDS: Dexamethasone 4 mg/1 ml IVP SCH ×4 (03:06→22:19)
[2017-08-12 06:55] LABS: HEMOGLOBIN 8.4 g/dL (11.0-16.0); MEAN CELL VOLUME 88.7 fL (81.0-99.0); MEAN CORPUSCULAR HEMOGLOBIN 29.3 pg (27.0-31.0); MEAN PLATELET VOLUME 8.7 fL (7.2-11.7); PLATELET COUNT 256 K/uL (130-400); RBC 2.86 Mil/uL (3.80-5.20); RED CELL DISTRIBUTION WIDTH 17.3 % (11.5-14.5); WHITE BLOOD COUNT 4.6 K/uL (4.8-10.8)
[2017-08-12 06:57] LABS: ALB/GLOB RATIO 0.5 (1.0-2.1); ALBUMIN 2.5 g/dL (3.5-5.0); BILIRUBIN,DIRECT 0.2 mg/dL (0.0-0.4); CALCIUM 8.6 mg/dl (8.6-10.4); MAGNESIUM 1.7 mg/dL (1.6-2.3)
--- NOTE | 2017-08-12 07:37 | CP.PCM.PN ---
Subjective - Date & Time of Evaluation Date of Evaluation: 08/12/17 Time of Evaluation: 07:35 - Subjective Subjective: Ms. Mobley was seen and examined at the bedside. She remains non-verbal, but opens her eyes with both tactile and verbal stimuli. She moves her left upper extremity spontaneously with right upper extremity remains flaccid. She is able to move her bilateral lower extremities as response to noxious stimuli. There is no facial twitching or any involuntary movement noted. There was no untoward events overnight. Objective - Vital Signs/Intake and Output Vital Signs (last 24 hours): Temp Pulse Resp BP Pulse Ox 98.3 F 80 20 132/74 100 08/12/17 00:00 08/12/17 00:00 08/12/17 00:00 08/12/17 00:00 08/12/17 00:00 Intake and Output: 08/12/17 08/12/17 06:59 18:59 Intake Total 410 600 Output Total 700 400 Balance -290 200 - Medications Medications: Current Medications Acetaminophen (Tylenol 650mg/20.3ml Solution Ud) 650 mg PO Q6H PRN PRN Reason: Temperature >100.4 Last Admin: 08/06/17 20:57 Dose: 650 mg Clotrimazole (Lotrimin 1%) 1 gm TOP BID [facility] Stop: 08/17/17 10:00 Last Admin: 08/11/17 17:57 Dose: 1 applic Dexamethasone (Decadron Inj) 6 mg IVP Q6H [facility] Stop: 08/12/17 22:00 Last Admin: 08/12/17 03:06 Dose: 6 mg Dextrose (Dextrose 50% Inj) 0 ml IV STAT PRN; Protocol PRN Reason: Hypoglycemia Protocol Last Admin: 08/03/17 17:55 Dose: 50 ml Heparin Sodium (Porcine) (Heparin) 5,000 units SC Q12 [facility] Last Admin: 08/11/17 21:58 Dose: 5,000 units Lacosamide 100 mg/ Sodium (Chloride) 110 mls @ 110 mls/hr IV Q12H [facility] Last Admin: 08/11/17 13:00 Dose: 110 mls/hr Acyclovir 600 mg/ Sodium (Chloride) 100 mls @ 100 mls/hr IV Q8H [facility] Stop: 08/29/17 23:59 Last Admin: 08/12/17 03:07 Dose: 100 mls/hr Ceftriaxone Sodium 2 gm/ (Sodium Chloride) 100 mls @ 100 mls/hr IVPB Q24H [facility] Last Admin: 08/11/17 15:54 Dose: 100 mls/hr Levetiracetam 1,500 mg/ Sodium (Chloride) 115 mls @ 460 mls/hr IVPB Q12H [facility] Last Admin: 08/12/17 01:00 Dose: 460 mls/hr Fluconazole 100 mg/ (Miscellaneous) 50 mls @ 100 mls/hr IVPB DAILY [facility] Stop: 08/17/17 10:00 Last Admin: 08/11/17 12:13 Dose: 100 mls/hr Valproate Sodium 1,500 mg/ (Sodium Chloride) 115 mls @ 92 mls/hr IVPB Q12H [facility] PRN Reason: 20 MG/MIN Last Admin: 08/11/17 23:35 Dose: 92 mls/hr Lactobacillus Acidophilus (Bacid Acidophilus) 1 cap PO BID [facility] Last Admin: 08/11/17 17:56 Dose: 1 cap Losartan Potassium (Cozaar) 25 mg PO DAILY [facility] Last Admin: 08/11/17 12:23 Dose: 25 mg Metoprolol Tartrate (Lopressor) 50 mg PO BID [facility] Last Admin: 08/11/17 17:58 Dose: 50 mg Rifampin (Rifampin Cap) 300 mg PO TID [facility] Last Admin: 08/11/17 17:56 Dose: 300 mg Rosuvastatin Calcium (Crestor) 40 mg PO HS [facility] Last Admin: 08/11/17 21:56 Dose: 40 mg Spironolactone (Aldactone) 25 mg PO BID [facility] Last Admin: 08/08/17 10:34 Dose: 25 mg - Labs Labs: 08/12/17 06:34 08/12/17 06:34 PT 14.6 SECONDS (9.7-12.2) H 08/01/17 19:55 INR 1.3 08/01/17 19:55 APTT 47 SECONDS (21-34) H 08/01/17 19:55 - Constitutional Appears: No Acute Distress - Head Exam Head Exam: NORMAL INSPECTION - Neurological Exam Neurological Exam: Awake Neuro motor strength exam: Left Upper Extremity: 2/1, Right Upper Extremity: 0, Left Lower Extremity: 0, Right Lower Extremity: 0 Additional comments: Neurological unchanged from previous examination without facial twitching noted. Assessment and Plan (1) Seizure Assessment & Plan: Case discussed with Dr. Cornejo, continue all current medical regimen including AED's. Recommend the same dose of depakote since it was just started yesterday. Recommend to repeat valproic level on Saturday, PT eval and treat for deconditioning. Status: Acute
[2017-08-12 09:21] LABS: LYMPH # 0.3 K/uL (1.0-4.3); MONO # 0.1 K/uL (0.0-0.8); NEUT # 4.2 K/uL (1.8-7.0)
[2017-08-12 09:23] LABS: LYMPHOCYTE 7 % (20-40); MONOCYTE 1 % (0-10); NEUTROPHIL 92 % (50-75); PLATELET ESTIMATE NORMAL (NORMAL); TOTAL CELLS COUNTED 100
[2017-08-12 09:24] LABS: ANISOCYTOSIS SLIGHT; HYPOCHROMIC SLIGHT; OVALOCYTES SLIGHT; POLYCHROMIC SLIGHT; TARGET CELLS SLIGHT
--- NOTE | 2017-08-12 10:21 | CP.PCM.PN ---
Subjective - Date & Time of Evaluation Date of Evaluation: 08/12/17 Time of Evaluation: 10:17 - Subjective Subjective: Patient with eyes open, responds to exam but does not follow commands. Objective - Vital Signs/Intake and Output Vital Signs (last 24 hours): Temp Pulse Resp BP Pulse Ox 98.0 F 77 20 139/85 99 08/12/17 08:00 08/12/17 08:00 08/12/17 08:00 08/12/17 08:00 08/12/17 08:00 Intake and Output: 08/12/17 08/12/17 06:59 18:59 Intake Total 410 600 Output Total 700 400 Balance -290 200 - Medications Medications: Current Medications Acetaminophen (Tylenol 650mg/20.3ml Solution Ud) 650 mg PO Q6H PRN PRN Reason: Temperature >100.4 Last Admin: 08/06/17 20:57 Dose: 650 mg Clotrimazole (Lotrimin 1%) 1 gm TOP BID [facility] Stop: 08/17/17 10:00 Last Admin: 08/11/17 17:57 Dose: 1 applic Dexamethasone (Decadron Inj) 6 mg IVP Q6H [facility] Stop: 08/12/17 22:00 Last Admin: 08/12/17 03:06 Dose: 6 mg Dextrose (Dextrose 50% Inj) 0 ml IV STAT PRN; Protocol PRN Reason: Hypoglycemia Protocol Last Admin: 08/03/17 17:55 Dose: 50 ml Heparin Sodium (Porcine) (Heparin) 5,000 units SC Q12 [facility] Last Admin: 08/11/17 21:58 Dose: 5,000 units Lacosamide 100 mg/ Sodium (Chloride) 110 mls @ 110 mls/hr IV Q12H [facility] Last Admin: 08/11/17 13:00 Dose: 110 mls/hr Acyclovir 600 mg/ Sodium (Chloride) 100 mls @ 100 mls/hr IV Q8H [facility] Stop: 08/29/17 23:59 Last Admin: 08/12/17 03:07 Dose: 100 mls/hr Ceftriaxone Sodium 2 gm/ (Sodium Chloride) 100 mls @ 100 mls/hr IVPB Q24H [facility] Last Admin: 08/11/17 15:54 Dose: 100 mls/hr Levetiracetam 1,500 mg/ Sodium (Chloride) 115 mls @ 460 mls/hr IVPB Q12H [facility] Last Admin: 08/12/17 01:00 Dose: 460 mls/hr Fluconazole 100 mg/ (Miscellaneous) 50 mls @ 100 mls/hr IVPB DAILY [facility] Stop: 08/17/17 10:00 Last Admin: 08/11/17 12:13 Dose: 100 mls/hr Valproate Sodium 1,500 mg/ (Sodium Chloride) 115 mls @ 92 mls/hr IVPB Q12H [facility] PRN Reason: 20 MG/MIN Last Admin: 08/11/17 23:35 Dose: 92 mls/hr Lactobacillus Acidophilus (Bacid Acidophilus) 1 cap PO BID [facility] Last Admin: 08/11/17 17:56 Dose: 1 cap Losartan Potassium (Cozaar) 25 mg PO DAILY [facility] Last Admin: 08/11/17 12:23 Dose: 25 mg Metoprolol Tartrate (Lopressor) 50 mg PO BID [facility] Last Admin: 08/11/17 17:58 Dose: 50 mg Rifampin (Rifampin Cap) 300 mg PO TID [facility] Last Admin: 08/11/17 17:56 Dose: 300 mg Rosuvastatin Calcium (Crestor) 40 mg PO HS [facility] Last Admin: 08/11/17 21:56 Dose: 40 mg Spironolactone (Aldactone) 25 mg PO BID [facility] Last Admin: 08/08/17 10:34 Dose: 25 mg - Labs Labs: 08/12/17 06:34 08/12/17 06:34 PT 14.6 SECONDS (9.7-12.2) H 08/01/17 19:55 INR 1.3 08/01/17 19:55 APTT 47 SECONDS (21-34) H 08/01/17 19:55 - Extremities Exam Additional comments: no obvious painful distress with flex/ext of left knee. no change in clinical exam of knee, still mod swelling, no erythema, minimally warm. No increase in effusion. No obvious distress with palpation of knee calves soft no palpable cords. responds to light touch to LLE +DP/PT pulses Assessment and Plan (1) Septic arthritis of knee, left Assessment & Plan: s/p Left knee arthroscopic I&D clinically no indication for repeat washout at this time IV antibiotics as per ID total of 6 weeks PT as appropriate VTE proph d/w Dr. Mcmillan, agrees with abover Status: Acute (2) Osteomyelitis of left knee region Status: Acute
[2017-08-12] MEDS: Fluconazole IV 200mg/100 ml NS 100 MG in Premixed IV 1 EA IVPB SCH (10:24)
[2017-08-12] MEDS: Lactobacillus Acidophilus 500 MU Cap PO SCH ×2 (10:25→17:37)
[2017-08-12] MEDS: Clotrimazole 1% Cream(30 gm) TOP SCH ×2 (10:26→18:00)
[2017-08-12] MEDS: Lacosamide 200mg/20ml 100 MG in Sodium Chloride 0.9% 100 ML IV SCH ×2 (11:00→22:30)
[2017-08-12] MEDS: Valproate 1,500 MG in Sodium Chloride 0.9% 100 ML IVPB SCH (12:18)
--- NOTE | 2017-08-12 14:02 | CP.PCM.PN ---
<Maggie Ozuna - Last Filed: 08/12/17 13:55> Subjective - Date & Time of Evaluation Date of Evaluation: 08/12/17 Time of Evaluation: 13:55 - Subjective Subjective: Patient seen and examined at bedside with . Patient resting comfortably in bed. No acute events overnight. ROS unattainable due to patient status. Objective - Vital Signs/Intake and Output Vital Signs (last 24 hours): Temp Pulse Resp BP Pulse Ox 98.0 F 77 20 139/85 99 08/12/17 08:00 08/12/17 08:00 08/12/17 08:00 08/12/17 08:00 08/12/17 08:00 Intake and Output: 08/12/17 08/12/17 06:59 18:59 Intake Total 410 600 Output Total 700 400 Balance -290 200 - Medications Medications: Current Medications Acetaminophen (Tylenol 650mg/20.3ml Solution Ud) 650 mg PO Q6H PRN PRN Reason: Temperature >100.4 Last Admin: 08/06/17 20:57 Dose: 650 mg Clotrimazole (Lotrimin 1%) 1 gm TOP BID [facility] Stop: 08/17/17 10:00 Last Admin: 08/12/17 10:26 Dose: 1 applic Dexamethasone (Decadron Inj) 6 mg IVP Q6H [facility] Stop: 08/12/17 22:00 Last Admin: 08/12/17 11:00 Dose: 6 mg Dextrose (Dextrose 50% Inj) 0 ml IV STAT PRN; Protocol PRN Reason: Hypoglycemia Protocol Last Admin: 08/03/17 17:55 Dose: 50 ml Heparin Sodium (Porcine) (Heparin) 5,000 units SC Q12 [facility] Last Admin: 08/12/17 10:25 Dose: 5,000 units Lacosamide 100 mg/ Sodium (Chloride) 110 mls @ 110 mls/hr IV Q12H [facility] Last Admin: 08/12/17 11:00 Dose: 110 mls/hr Acyclovir 600 mg/ Sodium (Chloride) 100 mls @ 100 mls/hr IV Q8H [facility] Stop: 08/29/17 23:59 Last Admin: 08/12/17 12:18 Dose: 100 mls/hr Ceftriaxone Sodium 2 gm/ (Sodium Chloride) 100 mls @ 100 mls/hr IVPB Q24H [facility] Last Admin: 08/11/17 15:54 Dose: 100 mls/hr Levetiracetam 1,500 mg/ Sodium (Chloride) 115 mls @ 460 mls/hr IVPB Q12H [facility] Last Admin: 08/12/17 01:00 Dose: 460 mls/hr Fluconazole 100 mg/ (Miscellaneous) 50 mls @ 100 mls/hr IVPB DAILY [facility] Stop: 08/17/17 10:00 Last Admin: 08/12/17 10:24 Dose: 100 mls/hr Valproate Sodium 1,500 mg/ (Sodium Chloride) 115 mls @ 92 mls/hr IVPB Q12H [facility] PRN Reason: 20 MG/MIN Last Admin: 08/12/17 12:18 Dose: 92 mls/hr Lactobacillus Acidophilus (Bacid Acidophilus) 1 cap PO BID [facility] Last Admin: 08/12/17 10:25 Dose: 1 cap Losartan Potassium (Cozaar) 25 mg PO DAILY [facility] Last Admin: 08/12/17 10:25 Dose: 25 mg Metoprolol Tartrate (Lopressor) 50 mg PO BID [facility] Last Admin: 08/12/17 10:25 Dose: 50 mg Rifampin (Rifampin Cap) 300 mg PO TID [facility] Last Admin: 08/12/17 10:26 Dose: 300 mg Rosuvastatin Calcium (Crestor) 40 mg PO HS [facility] Last Admin: 08/11/17 21:56 Dose: 40 mg Spironolactone (Aldactone) 25 mg PO BID [facility] Last Admin: 08/08/17 10:34 Dose: 25 mg - Labs Labs: 08/12/17 06:34 08/12/17 06:34 PT 14.6 SECONDS (9.7-12.2) H 08/01/17 19:55 INR 1.3 08/01/17 19:55 APTT 47 SECONDS (21-34) H 08/01/17 19:55 - Constitutional Appears: No Acute Distress, Chronically Ill - Head Exam Head Exam: ATRAUMATIC, NORMAL INSPECTION, NORMOCEPHALIC - Eye Exam Eye Exam: Normal appearance, PERRL Additional comments: opens eye spontaneously but does not follow commands to follow my finger - ENT Exam ENT Exam: Mucous Membranes Moist - Respiratory Exam Respiratory Exam: Clear to Ausculation Bilateral, NORMAL BREATHING PATTERN. absent: Accessory Muscle Use, Rales, Rhonchi, Wheezes, Respiratory Distress Additional comments: Birthmark noted on right chest wall - Cardiovascular Exam Cardiovascular Exam: RRR, +S1, +S2 - GI/Abdominal Exam GI & Abdominal Exam: Soft, Normal Bowel Sounds. absent: Distended, Tenderness - Exam Additional comments: apodaca in place - Extremities Exam Extremities Exam: Joint Swelling (left knee ). absent: Calf Tenderness, Pedal Edema - Neurological Exam Neurological Exam: Awake Neuro motor strength exam: Left Upper Extremity: 3, Right Upper Extremity: 2/1 ( random muscle contractions ), Left Lower Extremity: 2/1, Right Lower Extremity: 2/1 Additional comments: positive startle response unprovoked facial twitching (eyebrow raising) dose not follow commands opens eyes spontaneously grimace to painful stimuli - Skin Skin Exam: Dry, Intact, Warm Assessment and Plan - Assessment and Plan (Free Text) Plan: New onset seizure * 08/01: per review of ED triage note: Via ALS from [facility], prior notification of resident experiencing ''jerky movements few secs for a total of 3 episodes''; seizure-like activity witnessed by ALS, treated with ATIVAN 2MG IV GIVEN VIA PICC LINE TO RT ARM PER REPORT GIVEN; on NRB 100%, NTS=410iv/d * 08/01: Per review of ED note: In ambulance, given Ativan 2mg on route, NIHSS: 29 (noted for dysarthria and profound neglect does not recognize own hand or oreitns to one side. ED attempted to reverse with Flumazenil given patient appeared comatose. Intubated in the ED for airway protection with etomidate * 08/01: Code stroke GCS: 4 * Factors for seizure activity: * Precipitating factors: hyponatremia, hypokalemia, hypomagnesium * Antibiotic side effect: gentamicin (seizure, confusion, lethargy per uptodate ), rifampin (fatigue, drowsiness, confusion), Cefazolin (seizure) * pain medication: tramadol * Imaging: * CT head (08/01/17): nonspecific white matter changes. Acute infarction may be CT occult within first 24 hours. If a focal deficit persists, consider for further evaulation. Atherosclerotic disease of intracranial arteries. probable chronic lacunar infarcts within basal ganglia. * CT Head and neck (08/01/17): no flow limiting cervical cartoid artery stenosis or vessel occlusion. Patent vertebral arteries * CT Head (08/02/17): no evidence of acute infarct. Chronic microvascular white matter ischemic change. otherwise unremarkable. * MRI Brain (08/05/17): NO acute intracranial hemorrhage. Moderate chronic white matter changes with scattered small basal nuclei, brain stem, and left cerebellar lacunar infarcts * MRI Neck (08/05/17): NO evidence of any significant stenosis of the carotid arteries * MRI Brain (08/05/17): Right distal Posterior Cerebral Artery can't be visualized but this may be artifactual vs occlusion can't be excluded. * MRI Brain with and without contrast (08/09/17): No evidence of abnormal signal , edema, or enhancement in the cerebral cortex to suggest encephalitis and active infectious process. NO evidence of abnormal leptomeningeal enhancement * Neurology (Dr. Cornejo/Josh) on board, help appreciated * F/U EEG from morning 08/08/17 * Vimpat 100 mg IVP Q12H * 08/08/17: Acyclovir 600 mg IV Q8H added * 08/10/17: Keppra increased to 1,500 mg IV Q12H * 08/11/17: Valproic Acid increased to 1,500 mg IV Q12H and level 19.3 (L) on * Patient for Lumbar Tap 08/08/17 by ICU Team and the following studies have been ordered and will need to be followed up: * Tube 1: cell count with differential, protein 44, glucose 69, Gram Stain negative, Cryptococcal Ag negative, Bacterial Ag, VDRL negative * Tube 2: HSV 1 PCR, HSV 2 PCR, AFB PCR, WNV PCR, Lyme PCR * Tube 3: Bacterial Culture negative, AFB Smear and Culture negative, Fungal Smear and Culture negative, HSV Culture, Cytology, Anti-NMDAR Antibodies to look for V-Vyuknr-Z-Aspartate Receptor Abs * CSF Gram Stain is negative to date * CSF Fungal Culture preliminary is negative to date * CSF Mycobacterium Culture shows NO AFB to date * Ceftriaxone 2 gram IV Q24H started 08/08/17 * Dexamethasone 10 mg IV x 1 dose followed by 6 mg IV Q6H through 08/12/17 * PICC line (had been placed 07/24/17). * Monitor electrolytes Hypokalemia/Hypomagnesemia * Replete as needed Hyponatremia/SIADH - resolved, stable * Nephrology (Dr. Eddy) on the case, help appreciated * SIADH/secondary to the Keppra? * Patient has received Tolvaptan 30 mg PO 1x/day on 08/03/17/, 08/04/17, 08/05/17, 08/06/17. However patient is also on Rifampin (as part of treatment for Left Knee Septic Arthritis) and this may interfere with the Tolvaptan. * Aldactone 25 mg PO Q12H is on HOLD Septic arthritis * Infectious Disease (Dr. Jannie Avina) on the case, help appreciated * Last admission: Patient was discharged on Ancef, Rifampin, and gentamicin. MICS available (07/26/17) and came back on 08/01/17. * Gentamicin Sulfate 70mg IVPB Q24H (active 08/04/17) X 5 bags with last dose on 08/08/17 * Monitor renal function * Rifampin 300mg PO TID (08/02/17) * Will impact Samsca * Stopped Vancomycin 750mg IVPB Q12H (started 08/03/17) - OK'd by Dr. Avina * Monitor renal function * Rocephin 2 g Q24H (started 08/08) * She will need a total of 6 weeks of Antibiotics with STOP DATE for Rifampin [ and Vancomycin] of 08/29/17 (before discontinuing on this date, please make sure this is ok with ID Dr. Jojo Avina) * Orthopedics LONA Ann removed sutures 08/07/17 H/O mitral valve replacement (bioprosthetic valve) * Cardiology (Dr. Rowan) on the case, help appreciated; Dr. Rush covering this weekend * Will need to follow-up in regards anticoagulation such as aspirin in regards to bioprosthetic valvue * Per cardiology, do not start chemical anticoagulation given recurrent history of GI bleeding * Echocardiogram (08/02/17): No ASD seen. * Echocardiogram (07/22/17): limited study, vegetation on MV cannot be excluded. Rec. ASTRID to define MV/Calcified mitral ring? * Echocardiogram (07/01/17): systolic function is severely impaired. Anterior and septa; aldridge reveal dyskinesis with wall thinning. (indicative of prior transmural HI), inferior wall is severely hypokinestic, lateral wall is mod to severely hypokinetic, Left atrium is moderately dilated, right atrium is moderately dilated, mild concentric left ventricular hypertrophy, mild mitral valve stenosis, * Cardiac cath: severe multivessel coronary artery disease, severe left ventricular systolic dysfunction (2017) * Hx CABG * Prosthetic valve * NO ASTRID considering findings on MRI Brain 08/05/17 that showed chronic lacunar infarcts Diabetes mellitus * [id number]: 5.1 * Controlled * Accuchecks Q6H Hypertension * Lopressor 50mg PO BID * Crestor 2.5mg POqHS * Cozaar 25mg PO daily Hx Coronary artery disease/CABG * Lopressor 50mg PO BID * Crestor 2.5mg POqHS * Cozaar 25mg PO daily Severe systolic congestive heart failure * Lopressor, Cozaar * On last admission recommends for outpatient AICD by Dr Rowan Atelectasis * CT Chest (08/02/17): small right pleural effusion and right lower lobe subsegmental atelectasis. Opacity seen at right lung base on earlier chest radiograph of the same date was likely artifactual due to overlying medical equipment Paroxysmal Atrial Fibrillation * Lopressor 5mg IVPQ6H * Lopressor 50mg PO BID * Per cardiology, hold chemical anticoagulation, patient has history of recurrent GI bleed, awaiting brain MRI, may or may not need ASTRID Fungal Rash * Inner groin folds and back side rash improving * Lotrimin 1% cream UTI Yeast * 08/11/17: Started Diflucan (STOP DATE 08/17/17) * Repeat Urine Culture ordered for 08/15/17 Prophylactic measure * Heparin 5000 units [id number] was placed on HOLD for Lumbar Tap * Protonix 40mg IVP Q12H * Bacid 1 cap PO BID * Tylenol 650 mg Q6H PRN Fever * Duoneb Q6H PRN * PT/OT eval * Wound care Disposition: As per neurology, patient may need transfer to another facility for further care that cannot be provided here, will follow up for further recommendations. Patient seen, examined, and discussed with Dr. Agrawal <Miriam Agrawal V - Last Filed: 08/12/17 17:53> Objective - Vital Signs/Intake and Output Vital Signs (last 24 hours): Temp Pulse Resp BP Pulse Ox 97.7 F 69 20 123/67 99 08/12/17 15:15 08/12/17 15:15 08/12/17 15:15 08/12/17 15:15 08/12/17 15:15 Intake and Output: 08/12/17 08/12/17 06:59 18:59 Intake Total 410 1295 Output Total 700 1200 Balance -290 95 - Medications Medications: Current Medications Acetaminophen (Tylenol 650mg/20.3ml Solution Ud) 650 mg PO Q6H PRN PRN Reason: Temperature >100.4 Last Admin: 08/06/17 20:57 Dose: 650 mg Clotrimazole (Lotrimin 1%) 1 gm TOP BID [facility] Stop: 08/17/17 10:00 Last Admin: 08/12/17 10:26 Dose: 1 applic Dexamethasone (Decadron Inj) 6 mg IVP Q6H [facility] Stop: 08/12/17 22:00 Last Admin: 08/12/17 11:00 Dose: 6 mg Dextrose (Dextrose 50% Inj) 0 ml IV STAT PRN; Protocol PRN Reason: Hypoglycemia Protocol Last Admin: 08/03/17 17:55 Dose: 50 ml Heparin Sodium (Porcine) (Heparin) 5,000 units SC Q12 [facility] Last Admin: 08/12/17 10:25 Dose: 5,000 units Lacosamide 100 mg/ Sodium (Chloride) 110 mls @ 110 mls/hr IV Q12H [facility] Last Admin: 08/12/17 11:00 Dose: 110 mls/hr Acyclovir 600 mg/ Sodium (Chloride) 100 mls @ 100 mls/hr IV Q8H [facility] Stop: 08/29/17 23:59 Last Admin: 08/12/17 12:18 Dose: 100 mls/hr Ceftriaxone Sodium 2 gm/ (Sodium Chloride) 100 mls @ 100 mls/hr IVPB Q24H [facility] Last Admin: 08/11/17 15:54 Dose: 100 mls/hr Levetiracetam 1,500 mg/ Sodium (Chloride) 115 mls @ 460 mls/hr IVPB Q12H [facility] Last Admin: 08/12/17 14:19 Dose: 460 mls/hr Fluconazole 100 mg/ (Miscellaneous) 50 mls @ 100 mls/hr IVPB DAILY [facility] Stop: 08/17/17 10:00 Last Admin: 08/12/17 10:24 Dose: 100 mls/hr Valproate Sodium 1,500 mg/ (Sodium Chloride) 115 mls @ 92 mls/hr IVPB Q12H [facility] PRN Reason: 20 MG/MIN Last Admin: 08/12/17 12:18 Dose: 92 mls/hr Lactobacillus Acidophilus (Bacid Acidophilus) 1 cap PO BID [facility] Last Admin: 08/12/17 10:25 Dose: 1 cap Losartan Potassium (Cozaar) 25 mg PO DAILY [facility] Last Admin: 08/12/17 10:25 Dose: 25 mg Metoprolol Tartrate (Lopressor) 50 mg PO BID [facility] Last Admin: 08/12/17 10:25 Dose: 50 mg Rifampin (Rifampin Cap) 300 mg PO TID [facility] Last Admin: 08/12/17 14:19 Dose: 300 mg Rosuvastatin Calcium (Crestor) 40 mg PO HS [facility] Last Admin: 08/11/17 21:56 Dose: 40 mg Spironolactone (Aldactone) 25 mg PO BID [facility] Last Admin: 08/08/17 10:34 Dose: 25 mg - Labs Labs: 08/12/17 06:34 08/12/17 06:34 PT 14.6 SECONDS (9.7-12.2) H 08/01/17 19:55 INR 1.3 08/01/17 19:55 APTT 47 SECONDS (21-34) H 08/01/17 19:55 Assessment and Plan (1) New onset seizure Status: Acute (2) Hypokalemia Status: Acute (3) Hyponatremia Status: Acute (4) SIADH (syndrome of inappropriate ADH production) Status: Acute (5) Septic arthritis Status: Chronic (6) H/O mitral valve replacement Status: Chronic (7) Diabetes mellitus Status: Chronic (8) Hypertension Status: Chronic (9) Coronary artery disease Status: Chronic (10) Severe systolic congestive heart failure Status: Chronic (11) Atelectasis Status: Acute (12) PAF (paroxysmal atrial fibrillation) Status: Acute (13) Prophylactic measure Status: Acute Attending/Attestation - Attestation I have personally seen and examined this patient.: Yes I have fully participated in the care of the patient.: Yes I have reviewed all pertinent clinical information, including history, physical exam and plan: Yes Notes (Text): Patient seen, examined, and case discussed with associate medical director. Using Indem[employer] man cold roll inspector, Nir ID #[id number] Sami translation with at bedside. Patient seen previously by me about a week ago. Patient transferred out from the intensive care unit yesterday into today. Patient does not speak. Patient does respond to painful stimuli are noted over the left improving swelling knee. patient has gag reflex. Patient seen this morning on third floor. Patient has notable twitching over the right eye, part of the face as well as into the right hand. Patient's right upper extremity is flaccid. Patient's left upper extremity is a weak however will will drop slowly and delay compared to the right side. Also noted patient does not move right lower extremity negative Babinski. Patient mildly moves left lower extremity extremity but minimally. Patient has an NG tube is receiving boluses until nursing secures pump for feeding. Patient does have a PICC line over the right upper extremity. Patient does have a Apodaca. We are awaiting cultures from last week's lumbar puncture thus far CSF culture is negative, HSV culture is negative awaiting further results. I discussed with neurology, will check for valproic acid level for tomorrow and may need to consider transfer if seizures persist in spite of antiseizure medications. I've also discussed with neurology cannot describe cannot start immunoglobulin therapy without a source. Neurology is suggesting to discontinue acyclovir and light of an HSV negative culture from the CSF will need to follow-up with infectious disease. Patient does not have a white count. Patient is noted to be on acyclovir, dexamethsone some since the . Patient owns vancomycin has been discontinued. Patient has received about a week's worth of gentamicin previously patient is still on Rocephin. Assessment/Plan 1) New onset seizure PLEDs Encephalitis * 08/01: per review of ED triage note: Via ALS from [facility], prior notification of resident experiencing ''jerky movements few secs for a total of 3 episodes''; seizure-like activity witnessed by ALS, treated with ATIVAN 2MG IV GIVEN VIA PICC LINE TO RT ARM PER REPORT GIVEN; on NRB 100%, CBA=084hf/d * 08/01: Per review of ED note: In ambulance, given Ativan 2mg on route, NIHSS: 29 (noted for dysarthria and profound neglect does not recognize own hand or oreitns to one side. ED attempted to reverse with Flumazenil given patient appeared comatose. Intubated in the ED for airway protection with etomidate * 08/01: Code stroke GCS: 4 * Factors for seizure activity: * Precipitating factors: hyponatremia, hypokalemia, hypomagnesium * Antibiotic side effect: gentamicin (seizure, confusion, lethargy per uptodate ), rifampin (fatigue, drowsiness, confusion), Cefazolin (seizure) * pain medication: tramadol * Imaging: * CT head (08/01/17): nonspecific white matter changes. Acute infarction may be CT occult within first 24 hours. If a focal deficit persists, consider for further evaulation. Atherosclerotic disease of intracranial arteries. probable chronic lacunar infarcts within basal ganglia. * CT Head and neck (08/01/17): no flow limiting cervical cartoid artery stenosis or vessel occlusion. Patent vertebral arteries * CT Head (08/02/17): no evidence of acute infarct. Chronic microvascular white matter ischemic change. otherwise unremarkable. * MRI Brain (08/05/17): NO acute intracranial hemorrhage. Moderate chronic white matter changes with scattered small basal nuclei, brain stem, and left cerebellar lacunar infarcts * MRI Neck (08/05/17): NO evidence of any significant stenosis of the carotid arteries * MRI Brain (08/05/17): Right distal Posterior Cerebral Artery can't be visualized but this may be artifactual vs occlusion can't be excluded. * MRI Brain with and without contrast (08/09/17): No evidence of abnormal signal , edema, or enhancement in the cerebral cortex to suggest encephalitis and active infectious process. NO evidence of abnormal leptomeningeal enhancement * Neurology (Dr. Cornejo/Josh) on board, help appreciated * Dr. Moreno note (08/10): EEG: report dictated: --initial eeg showed brief 2 second seizure in left temporal lobe with triphasics; repeat eeg on saturday (08/09 ) showed: PLEDS in the left temporal and frontal lobe, 3 discrete seizures evolving from the left temporal, subclinical. Focal right arm clinical seizures were not present during the EEG, as i was bedside reading it, all these findings were subclinical. MRI Brain: shows enhancement in the temporal and parietal, left cortical region. * c/w Vimpat 100 mg IVP Q12H * 08/08/17: Acyclovir 600 mg IV Q8H added * 08/10/17: Keppra increased to 1,500 mg IV Q12H * 08/11/17: c/w Keppra, c/w Vimpat Valproic Acid increased to 1,500 mg IV Q12H and level 19.3 (L) on 08/12/17; Follow-up Valproic acid on 08/14 * 08/12/17: Discussed with neurology, patient may require transfer for refractory seizure * Patient for Lumbar Tap 08/08/17 by ICU Team and the following studies have been ordered and will need to be followed up: * Tube 1: cell count with differential, protein 44, glucose 69, Gram Stain negative, Cryptococcal Ag negative, Bacterial Ag, VDRL negative * Tube 2: HSV 1 PCR, HSV 2 PCR, AFB PCR, WNV PCR, Lyme PCR * Tube 3: Bacterial Culture negative, AFB Smear and Culture negative, Fungal Smear and Culture negative, HSV Culture: not isolated (CSF) Cytology Anti-NMDAR Antibodies to look for W-Bhtdmd-L-Aspartate Receptor Ab * CSF Gram Stain is negative to date * CSF Fungal Culture preliminary is negative to date * CSF Mycobacterium Culture shows NO AFB to date * Ceftriaxone 2 gram IV Q24H started 08/08/17 * Dexamethasone 10 mg IV x 1 dose followed by 6 mg IV Q6H through 08/12/17 * 08/08/17: Acyclovir 600 mg IV Q8H added * PICC line (had been placed 07/24/17). * Monitor electrolytes 2) Hypokalemia/Hypomagnesemia * Replete as needed 3) Hyponatremia/SIADH - resolved, stable * Nephrology (Dr. Eddy) on the case, help appreciated * SIADH/secondary to the Keppra? * Patient has received Tolvaptan 30 mg PO 1x/day on 08/03/17/, 08/04/17, 08/05/17, 08/06/17. * However patient is also on Rifampin (as part of treatment for Left Knee Septic Arthritis) and this may interfere with the Tolvaptan. * Aldactone 25 mg PO Q12H is on HOLD * Sodium has normalized 4) Septic arthritis-->will need 6 weeks of IV abx * Infectious Disease (Dr. Jannie Avina) on the case, help appreciated * Last admission: Patient was discharged on Ancef, Rifampin, and gentamicin. MICS available (07/26/17) and came back on 08/01/17. * Gentamicin Sulfate 70mg IVPB Q24H (active 08/04/17) X 5 bags with last dose on 08/08/17 * Monitor renal function * Rifampin 300mg PO TID (08/02/17) * Will impact Samsca * Stopped Vancomycin 750mg IVPB Q12H (started 08/03/17) - OK'd by Dr. Avina * Monitor renal function * Rocephin 2 g Q24H (started 08/08) * She will need a total of 6 weeks of Antibiotics with STOP DATE for Rifampin [ and Vancomycin] of 08/29/17 (before discontinuing on this date, please make sure this is ok with ID Dr. Jjoo Avina) * Orthopedics PA Lindsey Stock removed sutures 08/07/17 5) H/O mitral valve replacement (bioprosthetic valve) * Cardiology (Dr. Rowan) on the case, help appreciated; Dr. Rush covering this weekend * Will need to follow-up in regards anticoagulation such as aspirin in regards to bioprosthetic valvue * Per cardiology, do not start chemical anticoagulation given recurrent history of GI bleeding * Echocardiogram (08/02/17): No ASD seen. * Echocardiogram (07/22/17): limited study, vegetation on MV cannot be excluded. Rec. ASTRID to define MV/Calcified mitral ring? * Echocardiogram (07/01/17): systolic function is severely impaired. Anterior and septa; aldridge reveal dyskinesis with wall thinning. (indicative of prior transmural HI), inferior wall is severely hypokinestic, lateral wall is mod to severely hypokinetic, Left atrium is moderately dilated, right atrium is moderately dilated, mild concentric left ventricular hypertrophy, mild mitral valve stenosis, * Cardiac cath: severe multivessel coronary artery disease, severe left ventricular systolic dysfunction (2017) * Hx CABG * Prosthetic valve * NO ASTRID considering findings on MRI Brain 08/05/17 that showed chronic lacunar infarcts 6) Diabetes mellitus * [id number]: 5.1 * Controlled * Accuchecks Q6H 7) Hypertension * Lopressor 50mg PO BID * Crestor 2.5mg POqHS * Cozaar 25mg PO daily 8) Hx Coronary artery disease/CABG * Lopressor 50mg PO BID * Crestor 2.5mg POqHS * Cozaar 25mg PO daily 9) Severe systolic congestive heart failure * Lopressor, Cozaar * On last admission recommends for outpatient AICD by Dr Rowan 10) Atelectasis * CT Chest (08/02/17): small right pleural effusion and right lower lobe subsegmental atelectasis. Opacity seen at right lung base on earlier chest radiograph of the same date was likely artifactual due to overlying medical equipment 11) Paroxysmal Atrial Fibrillation * Lopressor 5mg IVPQ6H * Lopressor 50mg PO BID * Per cardiology, hold chemical anticoagulation, patient has history of recurrent GI bleed * NO ASTRID considering findings on MRI Brain 08/05/17 that showed chronic lacunar infarcts 12) Fungal Rash (improved) * Inner groin folds and back side rash improving * Lotrimin 1% cream 13) UTI Yeast * 08/11/17: Started Diflucan (STOP DATE 08/17/17) * Repeat Urine Culture ordered for 08/15/17 14) Prophylactic measure * Resume Heparin 5000 units [id number] was placed on HOLD for Lumbar Tap * Protonix 40mg IVP Q12H * Bacid 1 cap PO BID * Tylenol 650 mg Q6H PRN Fever * Duoneb Q6H PRN * PT/OT eval * Wound care * Aspiration precautions * Seizure precations Disposition: * As per neurology, patient may need transfer to another facility for further care that cannot be provided here in regards to seizure management; * Will need to follow-up with ID in regards to 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 * Repeat valproic acid for Saturday for therapuetic dosing.
--- NOTE | 2017-08-12 14:57 | CP.PCM.PN ---
<Kristopher Kauffman - Last Filed: 08/12/17 14:54> Subjective - Date & Time of Evaluation Date of Evaluation: 08/12/17 Time of Evaluation: 10:00 - Subjective Subjective: PGY3 on Nephrology Dr. Eddy service: Pt seen and examined at bedside. Clinically unchanged. ROS unobtainable. Objective - Vital Signs/Intake and Output Vital Signs (last 24 hours): Temp Pulse Resp BP Pulse Ox 98.0 F 77 20 139/85 99 08/12/17 08:00 08/12/17 08:00 08/12/17 08:00 08/12/17 08:00 08/12/17 08:00 Intake and Output: 08/12/17 08/12/17 06:59 18:59 Intake Total 410 600 Output Total 700 400 Balance -290 200 - Medications Medications: Current Medications Acetaminophen (Tylenol 650mg/20.3ml Solution Ud) 650 mg PO Q6H PRN PRN Reason: Temperature >100.4 Last Admin: 08/06/17 20:57 Dose: 650 mg Clotrimazole (Lotrimin 1%) 1 gm TOP BID [facility] Stop: 08/17/17 10:00 Last Admin: 08/12/17 10:26 Dose: 1 applic Dexamethasone (Decadron Inj) 6 mg IVP Q6H [facility] Stop: 08/12/17 22:00 Last Admin: 08/12/17 11:00 Dose: 6 mg Dextrose (Dextrose 50% Inj) 0 ml IV STAT PRN; Protocol PRN Reason: Hypoglycemia Protocol Last Admin: 08/03/17 17:55 Dose: 50 ml Heparin Sodium (Porcine) (Heparin) 5,000 units SC Q12 [facility] Last Admin: 08/12/17 10:25 Dose: 5,000 units Lacosamide 100 mg/ Sodium (Chloride) 110 mls @ 110 mls/hr IV Q12H [facility] Last Admin: 08/12/17 11:00 Dose: 110 mls/hr Acyclovir 600 mg/ Sodium (Chloride) 100 mls @ 100 mls/hr IV Q8H [facility] Stop: 08/29/17 23:59 Last Admin: 08/12/17 12:18 Dose: 100 mls/hr Ceftriaxone Sodium 2 gm/ (Sodium Chloride) 100 mls @ 100 mls/hr IVPB Q24H [facility] Last Admin: 08/11/17 15:54 Dose: 100 mls/hr Levetiracetam 1,500 mg/ Sodium (Chloride) 115 mls @ 460 mls/hr IVPB Q12H [facility] Last Admin: 08/12/17 14:19 Dose: 460 mls/hr Fluconazole 100 mg/ (Miscellaneous) 50 mls @ 100 mls/hr IVPB DAILY [facility] Stop: 08/17/17 10:00 Last Admin: 08/12/17 10:24 Dose: 100 mls/hr Valproate Sodium 1,500 mg/ (Sodium Chloride) 115 mls @ 92 mls/hr IVPB Q12H [facility] PRN Reason: 20 MG/MIN Last Admin: 08/12/17 12:18 Dose: 92 mls/hr Lactobacillus Acidophilus (Bacid Acidophilus) 1 cap PO BID [facility] Last Admin: 08/12/17 10:25 Dose: 1 cap Losartan Potassium (Cozaar) 25 mg PO DAILY [facility] Last Admin: 08/12/17 10:25 Dose: 25 mg Metoprolol Tartrate (Lopressor) 50 mg PO BID [facility] Last Admin: 08/12/17 10:25 Dose: 50 mg Rifampin (Rifampin Cap) 300 mg PO TID [facility] Last Admin: 08/12/17 14:19 Dose: 300 mg Rosuvastatin Calcium (Crestor) 40 mg PO HS [facility] Last Admin: 08/11/17 21:56 Dose: 40 mg Spironolactone (Aldactone) 25 mg PO BID [facility] Last Admin: 08/08/17 10:34 Dose: 25 mg - Labs Labs: 08/12/17 06:34 08/12/17 06:34 PT 14.6 SECONDS (9.7-12.2) H 08/01/17 19:55 INR 1.3 08/01/17 19:55 APTT 47 SECONDS (21-34) H 08/01/17 19:55 - Constitutional Appears: Non-toxic, No Acute Distress, Chronically Ill - Head Exam Head Exam: NORMOCEPHALIC - Respiratory Exam Respiratory Exam: Clear to Ausculation Bilateral, NORMAL BREATHING PATTERN. absent: Wheezes - Cardiovascular Exam Cardiovascular Exam: REGULAR RHYTHM, +S1, +S2. absent: Gallop, Rubs - GI/Abdominal Exam GI & Abdominal Exam: Soft, Normal Bowel Sounds - Psychiatric Exam Psychiatric exam: Normal Mood - Skin Skin Exam: Intact Assessment and Plan - Assessment and Plan (Free Text) Assessment: (1) Hyponatremia Assessment & Plan: Much improved and stable, no longer on loop diuretic; most of fluid intake is in form of meds in NS (~1L daily) and ~500 cc tube feeds; has propensity for recurrence of hyponatremia in the setting of severe CHF; continue to monitor; will check urine electrolytes before starting IVF Status: Acute (2) CHF (congestive heart failure) Assessment & Plan: Severe systolic dysfunction; currently asymptomatic; continue B-trini and ARB ; continue monitor BP and hold Aldactone Status: Chronic <Eugene Eddy - Last Filed: 08/13/17 06:44> Objective - Vital Signs/Intake and Output Vital Signs (last 24 hours): Temp Pulse Resp BP Pulse Ox 97.6 F 73 20 144/79 100 08/13/17 00:00 08/13/17 00:00 08/13/17 00:00 08/13/17 00:00 08/13/17 00:00 Intake and Output: 08/12/17 08/13/17 18:59 06:59 Intake Total 1295 695 Output Total 1200 800 Balance 95 -105 - Medications Medications: Current Medications Acetaminophen (Tylenol 650mg/20.3ml Solution Ud) 650 mg PO Q6H PRN PRN Reason: Temperature >100.4 Last Admin: 08/06/17 20:57 Dose: 650 mg Clotrimazole (Lotrimin 1%) 1 gm TOP BID [facility] Stop: 08/17/17 10:00 Last Admin: 08/12/17 18:00 Dose: 1 applic Dextrose (Dextrose 50% Inj) 0 ml IV STAT PRN; Protocol PRN Reason: Hypoglycemia Protocol Last Admin: 08/03/17 17:55 Dose: 50 ml Heparin Sodium (Porcine) (Heparin) 5,000 units SC Q12 [facility] Last Admin: 08/12/17 22:19 Dose: 5,000 units Lacosamide 100 mg/ Sodium (Chloride) 110 mls @ 110 mls/hr IV Q12H [facility] Last Admin: 08/12/17 22:30 Dose: 110 mls/hr Acyclovir 600 mg/ Sodium (Chloride) 100 mls @ 100 mls/hr IV Q8H [facility] Stop: 08/29/17 23:59 Last Admin: 08/13/17 03:05 Dose: 100 mls/hr Ceftriaxone Sodium 2 gm/ (Sodium Chloride) 100 mls @ 100 mls/hr IVPB Q24H [facility] Last Admin: 08/12/17 16:00 Dose: 100 mls/hr Levetiracetam 1,500 mg/ Sodium (Chloride) 115 mls @ 460 mls/hr IVPB Q12H [facility] Last Admin: 08/13/17 01:00 Dose: 460 mls/hr Fluconazole 100 mg/ (Miscellaneous) 50 mls @ 100 mls/hr IVPB DAILY [facility] Stop: 08/17/17 10:00 Last Admin: 08/12/17 10:24 Dose: 100 mls/hr Valproate Sodium 1,500 mg/ (Sodium Chloride) 115 mls @ 92 mls/hr IVPB Q12H [facility] PRN Reason: 20 MG/MIN Last Admin: 08/13/17 00:00 Dose: 92 mls/hr Lactobacillus Acidophilus (Bacid Acidophilus) 1 cap PO BID [facility] Last Admin: 08/12/17 17:37 Dose: 1 cap Losartan Potassium (Cozaar) 25 mg PO DAILY [facility] Last Admin: 08/12/17 10:25 Dose: 25 mg Metoprolol Tartrate (Lopressor) 50 mg PO BID [facility] Last Admin: 08/12/17 17:41 Dose: 50 mg Rifampin (Rifampin Cap) 300 mg PO TID [facility] Last Admin: 08/12/17 17:37 Dose: 300 mg Rosuvastatin Calcium (Crestor) 40 mg PO HS [facility] Last Admin: 08/12/17 22:19 Dose: 40 mg Spironolactone (Aldactone) 25 mg PO BID [facility] Last Admin: 08/08/17 10:34 Dose: 25 mg - Labs Labs: 08/12/17 06:34 08/12/17 06:34 PT 14.6 SECONDS (9.7-12.2) H 08/01/17 19:55 INR 1.3 08/01/17 19:55 APTT 47 SECONDS (21-34) H 08/01/17 19:55 Assessment and Plan (1) Hyponatremia Status: Acute (2) CHF (congestive heart failure) Status: Chronic (3) Septic arthritis Status: Chronic (4) Hypokalemia Status: Acute Attending/Attestation - Attestation I have personally seen and examined this patient.: Yes I have fully participated in the care of the patient.: Yes I have reviewed all pertinent clinical information, including history, physical exam and plan: Yes Notes (Text): Patient seen and examined; I agree with the resident's note as above with the following additions/edits: Patient with history of severe systolic dysfunction, recent septic L knee arthritis/OM, admitted with seizure activity/AMS, hyponatremia; Hyponatremia much improved; mental status still not improved; patient is arousable but otherwise mostly somnolent and not following commands; being treated for possible viral meningitis; Still being treated for septic arthritis; NICOLE with gradual increase in serum creatinine from 0.6 -> 1.1; likely pre-renal etiology but will hold off on giving additional IVF in the setting of severe systolic dysfunction (CHF relatively compensated currently); continued to optimize B-Trini/ARB; continue to hold diuretics; will check urine lytes;
[2017-08-12] MEDS: cefTRIAXone 2 GM in Sodium Chloride 0.9% 100 ML IVPB SCH (16:00)
[2017-08-12 19:19] LABS: CREATININE, RANDOM URINE 41.5 mg/dL
[2017-08-12 21:48] LABS: SPECIMEN SOURCE CSF
--- NOTE | 2017-08-12 23:58 | CP.PCM.PN ---
Subjective - Date & Time of Evaluation Date of Evaluation: 08/12/17 Time of Evaluation: 23:58 - Subjective Subjective: AFEBRILE, PATIENT RESTING COMFORTABLY. NO MORE INVOLUNTARY FACIAL TWITCHINGS ROS -NOT AVAILABLE. LABS REVIEWED. CREAT1.1/BUN 22. LFTS N 08/09 -URINE CULTURE POSITIVE FOR YEAST ( ON IV DIFLUCAN ) CSF; -VE FUNGAL ELEMENTS CSF -VE afb SMEAR' CSF ; VDRL -VE WBC 4.6 Objective - Vital Signs/Intake and Output Vital Signs (last 24 hours): Temp Pulse Resp BP Pulse Ox 97.7 F 69 20 123/67 99 08/12/17 15:15 08/12/17 15:15 08/12/17 15:15 08/12/17 15:15 08/12/17 15:15 Intake and Output: 08/12/17 08/13/17 18:59 06:59 Intake Total 1295 Output Total 1200 Balance 95 - Medications Medications: Current Medications Acetaminophen (Tylenol 650mg/20.3ml Solution Ud) 650 mg PO Q6H PRN PRN Reason: Temperature >100.4 Last Admin: 08/06/17 20:57 Dose: 650 mg Clotrimazole (Lotrimin 1%) 1 gm TOP BID [facility] Stop: 08/17/17 10:00 Last Admin: 08/12/17 18:00 Dose: 1 applic Dextrose (Dextrose 50% Inj) 0 ml IV STAT PRN; Protocol PRN Reason: Hypoglycemia Protocol Last Admin: 08/03/17 17:55 Dose: 50 ml Heparin Sodium (Porcine) (Heparin) 5,000 units SC Q12 [facility] Last Admin: 08/12/17 22:19 Dose: 5,000 units Lacosamide 100 mg/ Sodium (Chloride) 110 mls @ 110 mls/hr IV Q12H [facility] Last Admin: 08/12/17 22:30 Dose: 110 mls/hr Acyclovir 600 mg/ Sodium (Chloride) 100 mls @ 100 mls/hr IV Q8H [facility] Stop: 08/29/17 23:59 Last Admin: 08/12/17 20:07 Dose: 100 mls/hr Ceftriaxone Sodium 2 gm/ (Sodium Chloride) 100 mls @ 100 mls/hr IVPB Q24H [facility] Last Admin: 08/12/17 16:00 Dose: 100 mls/hr Levetiracetam 1,500 mg/ Sodium (Chloride) 115 mls @ 460 mls/hr IVPB Q12H [facility] Last Admin: 08/12/17 14:19 Dose: 460 mls/hr Fluconazole 100 mg/ (Miscellaneous) 50 mls @ 100 mls/hr IVPB DAILY [facility] Stop: 08/17/17 10:00 Last Admin: 08/12/17 10:24 Dose: 100 mls/hr Valproate Sodium 1,500 mg/ (Sodium Chloride) 115 mls @ 92 mls/hr IVPB Q12H [facility] PRN Reason: 20 MG/MIN Last Admin: 08/12/17 12:18 Dose: 92 mls/hr Lactobacillus Acidophilus (Bacid Acidophilus) 1 cap PO BID [facility] Last Admin: 08/12/17 17:37 Dose: 1 cap Losartan Potassium (Cozaar) 25 mg PO DAILY [facility] Last Admin: 08/12/17 10:25 Dose: 25 mg Metoprolol Tartrate (Lopressor) 50 mg PO BID [facility] Last Admin: 08/12/17 17:41 Dose: 50 mg Rifampin (Rifampin Cap) 300 mg PO TID [facility] Last Admin: 08/12/17 17:37 Dose: 300 mg Rosuvastatin Calcium (Crestor) 40 mg PO HS [facility] Last Admin: 08/12/17 22:19 Dose: 40 mg Spironolactone (Aldactone) 25 mg PO BID [facility] Last Admin: 08/08/17 10:34 Dose: 25 mg - Labs Labs: 08/12/17 06:34 08/12/17 06:34 PT 14.6 SECONDS (9.7-12.2) H 08/01/17 19:55 INR 1.3 08/01/17 19:55 APTT 47 SECONDS (21-34) H 08/01/17 19:55 - Constitutional Appears: No Acute Distress, Chronically Ill - Head Exam Head Exam: NORMAL INSPECTION - Eye Exam Eye Exam: PERRL - ENT Exam ENT Exam: Normal Oropharynx - Neck Exam Neck Exam: Normal Inspection - Respiratory Exam Respiratory Exam: Clear to Ausculation Bilateral - GI/Abdominal Exam GI & Abdominal Exam: Soft, Normal Bowel Sounds - Extremities Exam Extremities Exam: absent: Calf Tenderness, Pedal Edema - Neurological Exam Neurological Exam: Altered - Psychiatric Exam Psychiatric exam: Flat Affect - Skin Skin Exam: Normal Color, Warm Assessment and Plan (1) New onset seizure Status: Acute (2) Hypokalemia Status: Acute (3) Hyponatremia Status: Acute (4) PAF (paroxysmal atrial fibrillation) Status: Acute (5) Septic arthritis Status: Chronic (6) Osteomyelitis of left knee region Status: Acute (7) H/O mitral valve replacement Status: Chronic (8) Diabetes mellitus Status: Chronic - Assessment and Plan (Free Text) Assessment: NEW ONSET OF SEIZURES/ACUTE FLACCID PARALYSIS - ETIOLOGY /? VIRAL ENCEPHALOMYLITIS - MSSA SEPTIC ARTHRITIS LEFT KNEE/WITH PSEUDOGOUT /? OSTEOMYLITIS - PROSTHETIC MITRAL- VALVE ENDOCARDITIS.(+VE VEGETATIONS could NOT BE RULED OUT ON 2-d ECHO ). -HX OF CABG /MVR. -CONGESTIVE HEART FAILURE. -PAROXSYSMAL ATRIAL FIBRILLATION. -ELECTROLYTE IMBALANCE -SIADH -RHEUMATOID ARTHRITIS/OSTEOPOROSIS BY HISTORY. -DM-2 PLAN . CONTINUE ON IV ACYCLOVIR 600MG IV Q 8HRLY 08/08/17 ON IV ROCEPHIN 2GM IV Q 24HRLY. 08/08/17 CONTINUE IV DEXAMETHASONE LAST DAY TODAY.08/12/17 CONTINUE PO RIFAMPIN 300MG PO TID. ON IV DIFLUCAN 100MG IV Q 24HRLY 08/11/17 X 7DAYS F/U CSF STUDIES -P PER NEURO
[2017-08-13] MEDS: levETIRAcetam 1,500 MG in Sodium Chloride 0.9% 100 ML IVPB SCH ×2 (01:00→13:54)
[2017-08-13 07:03] LABS: BASO % 0.3 % (0.0-2.0); EOS % 0.1 % (0.0-4.0); HEMOGLOBIN 8.4 g/dL (11.0-16.0); LYMPH # 1.4 K/uL (1.0-4.3); MEAN CELL VOLUME 88.1 fL (81.0-99.0); MEAN CORPUSCULAR HEMOGLOBIN 29.4 pg (27.0-31.0); MEAN CORPUSCULAR HGB CONC 33.4 g/dL (33.0-37.0); MEAN PLATELET VOLUME 8.5 fL (7.2-11.7); MONO # 0.2 K/uL (0.0-0.8); MONO % 4.5 % (0.0-10.0); NEUT # 3.5 K/uL (1.8-7.0); NEUT % 68.1 % (50.0-75.0); NRBC % 0.1 % (0.0-2.0); RBC 2.84 Mil/uL (3.80-5.20); RED CELL DISTRIBUTION WIDTH 17.1 % (11.5-14.5); WHITE BLOOD COUNT 5.1 K/uL (4.8-10.8)
[2017-08-13 07:16] LABS: ALB/GLOB RATIO 0.5 (1.0-2.1); ALBUMIN 2.3 g/dL (3.5-5.0); CALCIUM 8.5 mg/dl (8.6-10.4); MAGNESIUM 1.7 mg/dL (1.6-2.3)
--- NOTE | 2017-08-13 07:48 | CP.PCM.PN ---
Addendum entered and electronically signed by Maggie Ozuna DO 08/13/17 11: 51: Spoke with Dr. Avina; will continue acyclovir for 14 days (started 08/08, will end 08/21). Original Note: <Maggie Ozuna - Last Filed: 08/13/17 11:35> Subjective - Date & Time of Evaluation Date of Evaluation: 08/13/17 Time of Evaluation: 07:45 - Subjective Subjective: Patient seen and examined at bedside. Patient resting comfortably in bed. No acute events overnight. ROS unattainable due to patient status. Objective - Vital Signs/Intake and Output Vital Signs (last 24 hours): Temp Pulse Resp BP Pulse Ox 98.3 F 76 20 134/71 100 08/13/17 06:00 08/13/17 06:00 08/13/17 06:00 08/13/17 06:00 08/13/17 06:00 Intake and Output: 08/13/17 08/13/17 06:59 18:59 Intake Total 1285 Output Total 1100 Balance 185 - Medications Medications: Current Medications Acetaminophen (Tylenol 650mg/20.3ml Solution Ud) 650 mg PO Q6H PRN PRN Reason: Temperature >100.4 Last Admin: 08/06/17 20:57 Dose: 650 mg Clotrimazole (Lotrimin 1%) 1 gm TOP BID [facility] Stop: 08/17/17 10:00 Last Admin: 08/12/17 18:00 Dose: 1 applic Dextrose (Dextrose 50% Inj) 0 ml IV STAT PRN; Protocol PRN Reason: Hypoglycemia Protocol Last Admin: 08/03/17 17:55 Dose: 50 ml Heparin Sodium (Porcine) (Heparin) 5,000 units SC Q12 [facility] Last Admin: 08/12/17 22:19 Dose: 5,000 units Lacosamide 100 mg/ Sodium (Chloride) 110 mls @ 110 mls/hr IV Q12H [facility] Last Admin: 08/12/17 22:30 Dose: 110 mls/hr Acyclovir 600 mg/ Sodium (Chloride) 100 mls @ 100 mls/hr IV Q8H [facility] Stop: 08/29/17 23:59 Last Admin: 08/13/17 03:05 Dose: 100 mls/hr Ceftriaxone Sodium 2 gm/ (Sodium Chloride) 100 mls @ 100 mls/hr IVPB Q24H [facility] Last Admin: 08/12/17 16:00 Dose: 100 mls/hr Levetiracetam 1,500 mg/ Sodium (Chloride) 115 mls @ 460 mls/hr IVPB Q12H [facility] Last Admin: 08/13/17 01:00 Dose: 460 mls/hr Fluconazole 100 mg/ (Miscellaneous) 50 mls @ 100 mls/hr IVPB DAILY [facility] Stop: 08/17/17 10:00 Last Admin: 08/12/17 10:24 Dose: 100 mls/hr Valproate Sodium 1,500 mg/ (Sodium Chloride) 115 mls @ 92 mls/hr IVPB Q12H [facility] PRN Reason: 20 MG/MIN Last Admin: 08/13/17 00:00 Dose: 92 mls/hr Lactobacillus Acidophilus (Bacid Acidophilus) 1 cap PO BID [facility] Last Admin: 08/12/17 17:37 Dose: 1 cap Losartan Potassium (Cozaar) 25 mg PO DAILY [facility] Last Admin: 08/12/17 10:25 Dose: 25 mg Metoprolol Tartrate (Lopressor) 50 mg PO BID [facility] Last Admin: 08/12/17 17:41 Dose: 50 mg Rifampin (Rifampin Cap) 300 mg PO TID [facility] Last Admin: 08/12/17 17:37 Dose: 300 mg Rosuvastatin Calcium (Crestor) 40 mg PO HS [facility] Last Admin: 08/12/17 22:19 Dose: 40 mg Spironolactone (Aldactone) 25 mg PO BID [facility] Last Admin: 08/08/17 10:34 Dose: 25 mg - Labs Labs: 08/13/17 06:42 08/13/17 06:42 PT 14.6 SECONDS (9.7-12.2) H 08/01/17 19:55 INR 1.3 08/01/17 19:55 APTT 47 SECONDS (21-34) H 08/01/17 19:55 - Additional Findings Additional findings: - Constitutional Appears: No Acute Distress, Chronically Ill - Head Exam Head Exam: ATRAUMATIC, NORMAL INSPECTION, NORMOCEPHALIC - Eye Exam Eye Exam: Normal appearance, PERRL Additional comments: opens eye spontaneously but does not follow commands to follow my finger - ENT Exam ENT Exam: Mucous Membranes Moist - Respiratory Exam Respiratory Exam: Clear to Ausculation Bilateral, NORMAL BREATHING PATTERN. absent: Accessory Muscle Use, Rales, Rhonchi, Wheezes, Respiratory Distress Additional comments: Birthmark noted on right chest wall - Cardiovascular Exam Cardiovascular Exam: RRR, +S1, +S2 - GI/Abdominal Exam GI & Abdominal Exam: Soft, Normal Bowel Sounds. absent: Distended, Tenderness - Exam Additional comments: apodaca in place - Extremities Exam Extremities Exam: Joint Swelling (left knee ). absent: Calf Tenderness, Pedal Edema - Neurological Exam Neurological Exam: Awake Neuro motor strength exam: Left Upper Extremity: 3, Right Upper Extremity: 2/1 ( random muscle contractions ), Left Lower Extremity: 2/1, Right Lower Extremity: 2/1 Additional comments: spontaneously raises left arm but there is drift towards the bed after 3 seconds positive startle response unprovoked facial twitching (eyebrow raising) and right arm twitching dose not follow commands opens eyes spontaneously grimace to painful stimuli - Skin Skin Exam: Dry, Intact, Warm, Rash (in groin area, improving) Assessment and Plan - Assessment and Plan (Free Text) Plan: New onset seizure * 08/01: per review of ED triage note: Via ALS from [facility], prior notification of resident experiencing ''jerky movements few secs for a total of 3 episodes''; seizure-like activity witnessed by ALS, treated with ATIVAN 2MG IV GIVEN VIA PICC LINE TO RT ARM PER REPORT GIVEN; on NRB 100%, HVF=256qg/d * 08/01: Per review of ED note: In ambulance, given Ativan 2mg on route, NIHSS: 29 (noted for dysarthria and profound neglect does not recognize own hand or oreitns to one side. ED attempted to reverse with Flumazenil given patient appeared comatose. Intubated in the ED for airway protection with etomidate * 08/01: Code stroke GCS: 4 * Factors for seizure activity: * Precipitating factors: hyponatremia, hypokalemia, hypomagnesium * Antibiotic side effect: gentamicin (seizure, confusion, lethargy per uptodate ), rifampin (fatigue, drowsiness, confusion), Cefazolin (seizure) * pain medication: tramadol * Imaging: * CT head (08/01/17): nonspecific white matter changes. Acute infarction may be CT occult within first 24 hours. If a focal deficit persists, consider for further evaulation. Atherosclerotic disease of intracranial arteries. probable chronic lacunar infarcts within basal ganglia. * CT Head and neck (08/01/17): no flow limiting cervical cartoid artery stenosis or vessel occlusion. Patent vertebral arteries * CT Head (08/02/17): no evidence of acute infarct. Chronic microvascular white matter ischemic change. otherwise unremarkable. * MRI Brain (08/05/17): NO acute intracranial hemorrhage. Moderate chronic white matter changes with scattered small basal nuclei, brain stem, and left cerebellar lacunar infarcts * MRI Neck (08/05/17): NO evidence of any significant stenosis of the carotid arteries * MRI Brain (08/05/17): Right distal Posterior Cerebral Artery can't be visualized but this may be artifactual vs occlusion can't be excluded. * MRI Brain with and without contrast (08/09/17): No evidence of abnormal signal , edema, or enhancement in the cerebral cortex to suggest encephalitis and active infectious process. NO evidence of abnormal leptomeningeal enhancement * Neurology (Dr. Cornejo/Josh) on board, help appreciated * F/U EEG from morning 08/08/17 * Patient for Lumbar Tap 08/08/17 by ICU Team and the following studies have been ordered and will need to be followed up: * Tube 1: cell count with differential, protein 44, glucose 69, Gram Stain negative, Cryptococcal Ag negative, Bacterial Ag, VDRL negative * Tube 2: HSV 1 PCR negative, HSV 2 PCR negative, AFB PCR, WNV PCR, Lyme PCR * Tube 3: Bacterial Culture negative, AFB Smear and Culture negative, Fungal Smear and Culture negative, HSV Culture negative, Cytology, Anti-NMDAR Antibodies to look for Z-Bwvjco-T-Aspartate Receptor Abs * CSF Gram Stain is negative to date * CSF Fungal Culture preliminary is negative to date * CSF Mycobacterium Culture shows NO AFB to date * PICC line (had been placed 07/24/17). * Monitor electrolytes Meds: * 08/08/17-current: Ceftriaxone 2 gram IV Q24H * 08/08-08/12: Dexamethasone 10 mg IV x 1 dose followed by 6 mg IV Q6H * 08/03-current: Vimpat 100 mg IVP Q12H * 08/08/17: Acyclovir 600 mg IV Q8H added - will consider discontinuing since HSV negative * 08/10/17: Keppra increased to 1,500 mg IV Q12H * 08/11/17: Valproic Acid increased to 1,500 mg IV Q12H and level 19.3 (L) on RUE Edema * 08/13: RUE venous duplex pending Hypokalemia/Hypomagnesemia * Replete as needed Hyponatremia/SIADH - resolved, stable * Nephrology (Dr. Eddy) on the case, help appreciated * 08/12: urine osmolality 503, urine Cr 41.5, and urine Na 129 * SIADH/secondary to the Keppra? * Patient has received Tolvaptan 30 mg PO 1x/day on 08/03/17/, 08/04/17, 08/05/17, 08/06/17. However patient is also on Rifampin (as part of treatment for Left Knee Septic Arthritis) and this may interfere with the Tolvaptan. * Aldactone 25 mg PO Q12H is on HOLD Septic arthritis * Infectious Disease (Dr. Jannie Avina) on the case, help appreciated * Last admission: Patient was discharged on Ancef, Rifampin, and gentamicin. MICS available (07/26/17) and came back on 08/01/17. * Gentamicin Sulfate 70mg IVPB Q24H (active 08/04/17) X 5 bags with last dose on 08/08/17 * Monitor renal function * Rifampin 300mg PO TID (08/02/17) * Will impact Samsca * Stopped Vancomycin 750mg IVPB Q12H (started 08/03/17) - OK'd by Dr. Avina * Monitor renal function * Rocephin 2 g Q24H (started 08/08) * She will need a total of 6 weeks of Antibiotics with STOP DATE for Rifampin [ and Vancomycin] of 08/29/17 (before discontinuing on this date, please make sure this is ok with ID Dr. Jojo Avina) * Orthopedics LONA Ann removed sutures 08/07/17 H/O mitral valve replacement (bioprosthetic valve) * Cardiology (Dr. Rowan) on the case, help appreciated; Dr. Rush covering this weekend * Will need to follow-up in regards anticoagulation such as aspirin in regards to bioprosthetic valvue * Per cardiology, do not start chemical anticoagulation given recurrent history of GI bleeding * Echocardiogram (08/02/17): No ASD seen. * Echocardiogram (07/22/17): limited study, vegetation on MV cannot be excluded. Rec. ASTRID to define MV/Calcified mitral ring? * Echocardiogram (07/01/17): systolic function is severely impaired. Anterior and septa; aldridge reveal dyskinesis with wall thinning. (indicative of prior transmural NE), inferior wall is severely hypokinestic, lateral wall is mod to severely hypokinetic, Left atrium is moderately dilated, right atrium is moderately dilated, mild concentric left ventricular hypertrophy, mild mitral valve stenosis, * Cardiac cath: severe multivessel coronary artery disease, severe left ventricular systolic dysfunction (2017) * Hx CABG * Prosthetic valve * NO ASTRID considering findings on MRI Brain 08/05/17 that showed chronic lacunar infarcts Diabetes mellitus * [id number]: 5.1 * Controlled * Accuchecks Q6H Hypertension * Lopressor 50mg PO BID * Crestor 2.5mg POqHS * Cozaar 25mg PO daily Hx Coronary artery disease/CABG * Lopressor 50mg PO BID * Crestor 2.5mg POqHS * Cozaar 25mg PO daily Severe systolic congestive heart failure * Lopressor, Cozaar * On last admission recommends for outpatient AICD by Dr Rowan Atelectasis * CT Chest (08/02/17): small right pleural effusion and right lower lobe subsegmental atelectasis. Opacity seen at right lung base on earlier chest radiograph of the same date was likely artifactual due to overlying medical equipment Paroxysmal Atrial Fibrillation * Lopressor 5mg IVPQ6H * Lopressor 50mg PO BID * Per cardiology, hold chemical anticoagulation, patient has history of recurrent GI bleed, awaiting brain MRI, may or may not need ASTRID Fungal Rash * Inner groin folds and back side rash improving * Lotrimin 1% cream UTI Yeast * 08/11/17: Started Diflucan (STOP DATE 08/17/17) * Repeat Urine Culture ordered for 08/15/17 Prophylactic measure * Heparin 5000 units [id number] was placed on HOLD for Lumbar Tap * Protonix 40mg IVP Q12H * Bacid 1 cap PO BID * Tylenol 650 mg Q6H PRN Fever * Duoneb Q6H PRN * PT/OT eval * Wound care Disposition: As per neurology, patient may need transfer to another facility for further care that cannot be provided here, will follow up for further recommendations. Patient seen, examined, and discussed with Dr. Agrawal <Miriam Agrawal V - Last Filed: 08/13/17 21:26> Objective - Vital Signs/Intake and Output Vital Signs (last 24 hours): Temp Pulse Resp BP Pulse Ox 98.3 F 69 20 116/70 100 08/13/17 16:47 08/13/17 16:47 08/13/17 16:47 08/13/17 16:47 08/13/17 16:47 Intake and Output: 08/13/17 08/14/17 18:59 06:59 Intake Total 670 Output Total 600 Balance 70 - Medications Medications: Current Medications Acetaminophen (Tylenol 650mg/20.3ml Solution Ud) 650 mg PO Q6H PRN PRN Reason: Temperature >100.4 Last Admin: 08/06/17 20:57 Dose: 650 mg Clotrimazole (Lotrimin 1%) 1 gm TOP BID [facility] Stop: 08/17/17 10:00 Last Admin: 08/13/17 10:34 Dose: 1 applic Dextrose (Dextrose 50% Inj) 0 ml IV STAT PRN; Protocol PRN Reason: Hypoglycemia Protocol Last Admin: 08/03/17 17:55 Dose: 50 ml Heparin Sodium (Porcine) (Heparin) 5,000 units SC Q12 [facility] Last Admin: 08/13/17 10:34 Dose: 5,000 units Lacosamide 100 mg/ Sodium (Chloride) 110 mls @ 110 mls/hr IV Q12H [facility] Last Admin: 08/13/17 11:43 Dose: 110 mls/hr Acyclovir 600 mg/ Sodium (Chloride) 100 mls @ 100 mls/hr IV Q8H [facility] Stop: 08/29/17 23:59 Last Admin: 08/13/17 11:25 Dose: 100 mls/hr Ceftriaxone Sodium 2 gm/ (Sodium Chloride) 100 mls @ 100 mls/hr IVPB Q24H [facility] Last Admin: 08/12/17 16:00 Dose: 100 mls/hr Levetiracetam 1,500 mg/ Sodium (Chloride) 115 mls @ 460 mls/hr IVPB Q12H [facility] Last Admin: 08/13/17 13:54 Dose: 460 mls/hr Fluconazole 100 mg/ (Miscellaneous) 50 mls @ 100 mls/hr IVPB DAILY [facility] Stop: 08/17/17 10:00 Last Admin: 08/13/17 10:33 Dose: 100 mls/hr Valproate Sodium 1,500 mg/ (Sodium Chloride) 115 mls @ 92 mls/hr IVPB Q12H [facility] PRN Reason: 20 MG/MIN Last Admin: 08/13/17 12:43 Dose: 92 mls/hr Lactobacillus Acidophilus (Bacid Acidophilus) 1 cap PO BID [facility] Last Admin: 08/13/17 10:36 Dose: 1 cap Losartan Potassium (Cozaar) 25 mg PO DAILY [facility] Last Admin: 08/13/17 10:33 Dose: 25 mg Metoprolol Tartrate (Lopressor) 50 mg PO BID [facility] Last Admin: 08/13/17 17:54 Dose: 50 mg Rifampin (Rifampin Cap) 300 mg PO TID [facility] Last Admin: 08/13/17 17:54 Dose: 300 mg Rosuvastatin Calcium (Crestor) 40 mg PO HS [facility] Last Admin: 08/12/17 22:19 Dose: 40 mg Spironolactone (Aldactone) 25 mg PO BID [facility] Last Admin: 08/08/17 10:34 Dose: 25 mg - Labs Labs: 08/13/17 06:42 08/13/17 06:42 PT 14.6 SECONDS (9.7-12.2) H 08/01/17 19:55 INR 1.3 08/01/17 19:55 APTT 47 SECONDS (21-34) H 08/01/17 19:55 Assessment and Plan (1) New onset seizure Status: Acute (2) Hypokalemia Status: Acute (3) Hyponatremia Status: Acute (4) SIADH (syndrome of inappropriate ADH production) Status: Acute (5) Septic arthritis Status: Chronic (6) H/O mitral valve replacement Status: Chronic (7) Diabetes mellitus Status: Chronic (8) Hypertension Status: Chronic (9) Coronary artery disease Status: Chronic (10) Severe systolic congestive heart failure Status: Chronic (11) Atelectasis Status: Acute (12) PAF (paroxysmal atrial fibrillation) Status: Acute (13) Prophylactic measure Status: Acute Attending/Attestation - Attestation I have personally seen and examined this patient.: Yes I have fully participated in the care of the patient.: Yes I have reviewed all pertinent clinical information, including history, physical exam and plan: Yes Notes (Text): Patient seen, examined and case discussed with day-time resident. Patient seen this morning with the resident, patient has predominant left side gaze, coughed, patient unable to speak or follow commands. I had used the indemand mixer dry food products at bedside but patient did not follow. Discussed neurology for transfer to [facility], under Dr. Aneudy Guadarrama, [facility], for continuous EEG monitoring given patient has having twitching over the right eye and there is no continuous EEG available at this facility. Resident on neurology has filled out the EMTLA and spoken with the patient's given recommendation to transfer to [place] for EEG. Discussed with ID, recommending total 10 days of Acyclovir (not 14 days), continue 4 weeks of Rocephin and Rifampin to complete 6 week antibiotic therapy for septic arthritis/endocarditis. Assessment/Plan 1) New onset seizure PLEDs Encephalitis * 08/01: per review of ED triage note: Via ALS from [facility], prior notification of resident experiencing ''jerky movements few secs for a total of 3 episodes''; seizure-like activity witnessed by ALS, treated with ATIVAN 2MG IV GIVEN VIA PICC LINE TO RT ARM PER REPORT GIVEN; on NRB 100%, SUX=044ha/d * 08/01: Per review of ED note: In ambulance, given Ativan 2mg on route, NIHSS: 29 (noted for dysarthria and profound neglect does not recognize own hand or oreitns to one side. ED attempted to reverse with Flumazenil given patient appeared comatose. Intubated in the ED for airway protection with etomidate * 08/01: Code stroke GCS: 4 * Factors for seizure activity: * Precipitating factors: hyponatremia, hypokalemia, hypomagnesium * Antibiotic side effect: gentamicin (seizure, confusion, lethargy per uptodate ), rifampin (fatigue, drowsiness, confusion), Cefazolin (seizure) * pain medication: tramadol * Imaging: * CT head (08/01/17): nonspecific white matter changes. Acute infarction may be CT occult within first 24 hours. If a focal deficit persists, consider for further evaulation. Atherosclerotic disease of intracranial arteries. probable chronic lacunar infarcts within basal ganglia. * CT Head and neck (08/01/17): no flow limiting cervical cartoid artery stenosis or vessel occlusion. Patent vertebral arteries * CT Head (08/02/17): no evidence of acute infarct. Chronic microvascular white matter ischemic change. otherwise unremarkable. * MRI Brain (08/05/17): NO acute intracranial hemorrhage. Moderate chronic white matter changes with scattered small basal nuclei, brain stem, and left cerebellar lacunar infarcts * MRI Neck (08/05/17): NO evidence of any significant stenosis of the carotid arteries * MRI Brain (08/05/17): Right distal Posterior Cerebral Artery can't be visualized but this may be artifactual vs occlusion can't be excluded. * MRI Brain with and without contrast (08/09/17): No evidence of abnormal signal , edema, or enhancement in the cerebral cortex to suggest encephalitis and active infectious process. NO evidence of abnormal leptomeningeal enhancement * Neurology (Dr. Cornejo/Josh) on board, help appreciated * Dr. Moreno note (08/10): EEG: report dictated: --initial eeg showed brief 2 second seizure in left temporal lobe with triphasics; repeat eeg on saturday (08/09 ) showed: PLEDS in the left temporal and frontal lobe, 3 discrete seizures evolving from the left temporal, subclinical. Focal right arm clinical seizures were not present during the EEG, as i was bedside reading it, all these findings were subclinical. MRI Brain: shows enhancement in the temporal and parietal, left cortical region. * c/w Vimpat 100 mg IVP Q12H * 08/08/17: Acyclovir 600 mg IV Q8H added * 08/10/17: Keppra increased to 1,500 mg IV Q12H * 08/11/17: c/w Keppra, c/w Vimpat Valproic Acid increased to 1,500 mg IV Q12H and level 19.3 (L) on 08/12/17; Follow-up Valproic acid on 08/14 * 08/12/17: Discussed with neurology, patient may require transfer for refractory seizure * Patient for Lumbar Tap 08/08/17 by ICU Team and the following studies have been ordered and will need to be followed up: * Tube 1: cell count with differential, protein 44, glucose 69, Gram Stain negative, Cryptococcal Ag negative, Bacterial Ag, VDRL negative * Tube 2: HSV 1 PCR: negative , HSV 2 PCR: negative, AFB PCR, WNV PCR, Lyme PCR : negative * Tube 3: Bacterial Culture negative, AFB Smear and Culture negative, Fungal Smear and Culture negative, HSV Culture: not isolated (CSF) PCR: negative Cytology Anti-NMDAR Antibodies to look for R-Mxchnj-J-Aspartate Receptor Ab: does not show antibodies * CSF Gram Stain is negative to date * CSF Fungal Culture preliminary is negative to date * CSF Mycobacterium Culture shows NO AFB to date * Ceftriaxone 2 gram IV Q24H started 08/08/17 to finish 08/29/17 for 6 weeks * Dexamethasone 10 mg IV x 1 dose followed by 6 mg IV Q6H through 08/12/17 * 08/08/17: Acyclovir 600 mg IV Q8H added * 08/13: Discussed with ID, recommending total 10 days of Acyclovir (to complete 08/18/17), continue 4 weeks of Rocephin and Rifampin to complete 6 week antibiotic therapy for septic arthritis/endocarditis. Ceftriaxone 2 gram IV Q24H started 08/08/17 to finish 08/29/17 for 6 weeks, Rifampin 300mg PO TID ( started 08/02/17 for 6 weeks total) * PICC line (had been placed 07/24/17). * Monitor electrolytes 2) Hypokalemia/Hypomagnesemia * Replete as needed 3) Hyponatremia/SIADH - resolved, stable * Nephrology (Dr. Eddy) on the case, help appreciated * SIADH/ * Patient has received Tolvaptan 30 mg PO 1x/day on 08/03/17/, 08/04/17, 08/05/17, 08/06/17. * However patient is also on Rifampin (as part of treatment for Left Knee Septic Arthritis) and this may interfere with the Tolvaptan. * Aldactone 25 mg PO Q12H is on HOLD * Sodium has normalized 4) Septic arthritis-->will need 6 weeks of IV abx * Infectious Disease (Dr. Jannie Avina) on the case, help appreciated * Last admission: Patient was discharged on Ancef, Rifampin, and gentamicin. MICS available (07/26/17) and came back on 08/01/17. * Gentamicin Sulfate 70mg IVPB Q24H (active 08/04/17) X 5 bags with last dose on 08/08/17 * Monitor renal function * Rifampin 300mg PO TID (08/02/17) * Will impact Samsca * Stopped Vancomycin 750mg IVPB Q12H (started 08/03/17) - OK'd by Dr. Avina * Monitor renal function * Rocephin 2 g Q24H (started 08/08) * She will need a total of 6 weeks of Antibiotics with STOP DATE for Rifampin of 08/29/17 (before discontinuing on this date--Confirmed by ID on 08/13/17 * Orthopedics LONA Portillo Stock removed sutures 08/07/17 * 08/13: Discussed with ID, recommending total 10 days of Acyclovir (to complete 08/18/17), continue 4 weeks of Rocephin and Rifampin to complete 6 week antibiotic therapy for septic arthritis/endocarditis. Ceftriaxone 2 gram IV Q24H started 08/08/17 to finish 08/29/17 for 6 weeks, Rifampin 300mg PO TID ( started 08/02/17 for 6 weeks total) 5) H/O mitral valve replacement (bioprosthetic valve) * Cardiology (Dr. Rowan) on the case, help appreciated; Dr. Rush covering this weekend * Will need to follow-up in regards anticoagulation such as aspirin in regards to bioprosthetic valvue * Per cardiology, do not start chemical anticoagulation given recurrent history of GI bleeding * Echocardiogram (08/02/17): No ASD seen. * Echocardiogram (07/22/17): limited study, vegetation on MV cannot be excluded. Rec. ASTRID to define MV/Calcified mitral ring? * Echocardiogram (07/01/17): systolic function is severely impaired. Anterior and septa; aldridge reveal dyskinesis with wall thinning. (indicative of prior transmural NE), inferior wall is severely hypokinestic, lateral wall is mod to severely hypokinetic, Left atrium is moderately dilated, right atrium is moderately dilated, mild concentric left ventricular hypertrophy, mild mitral valve stenosis, * Cardiac cath: severe multivessel coronary artery disease, severe left ventricular systolic dysfunction (2017) * Hx CABG * Prosthetic valve * NO ASTRID considering findings on MRI Brain 08/05/17 that showed chronic lacunar infarcts 6) Diabetes mellitus * [id number]: 5.1 * Controlled * Accuchecks Q6H 7) Hypertension * Lopressor 50mg PO BID * Crestor 40mg POqHS * Cozaar 25mg PO daily 8) Hx Coronary artery disease/CABG * Lopressor 50mg PO BID * Crestor 2.5mg POqHS * Cozaar 25mg PO daily 9) Severe systolic congestive heart failure * Lopressor, Cozaar, Crestor * On last admission recommends for outpatient AICD by Dr Rowan * Dr. Vandana Rowan, Cardiology * Echocardiogram (08/02/17): No ASD seen. * Echocardiogram (07/22/17): limited study, vegetation on MV cannot be excluded. Rec. ASTRID to define MV/Calcified mitral ring? * Echocardiogram (07/01/17): systolic function is severely impaired. Anterior and septa; aldridge reveal dyskinesis with wall thinning. (indicative of prior transmural NE), inferior wall is severely hypokinestic, lateral wall is mod to severely hypokinetic, Left atrium is moderately dilated, right atrium is moderately dilated, mild concentric left ventricular hypertrophy, mild mitral valve stenosis, 10) Atelectasis * CT Chest (08/02/17): small right pleural effusion and right lower lobe subsegmental atelectasis. Opacity seen at right lung base on earlier chest radiograph of the same date was likely artifactual due to overlying medical equipment 11) Paroxysmal Atrial Fibrillation * Lopressor 5mg IVPQ6H * Lopressor 50mg PO BID * Per cardiology, hold chemical anticoagulation, patient has history of recurrent GI bleed * NO ASTRID considering findings on MRI Brain 08/05/17 that showed chronic lacunar infarcts 12) Fungal Rash (improved) * Inner groin folds and back side rash improving * Lotrimin 1% cream 13) UTI Yeast * 08/11/17: Started Diflucan (STOP DATE 08/17/17) to complete 7 days total of Diflucan * Repeat Urine Culture ordered for 08/15/17 14) Prophylactic measure * Resume Heparin 5000 units [id number] * Protonix 40mg IVP Q12H * Bacid 1 cap PO BID * Tylenol 650 mg Q6H PRN Fever * Duoneb Q6H PRN * PT/OT eval * Wound care * Aspiration precautions * Seizure precations Disposition: * Neurology has recommended and arranged for transfer of care to [facility], under Dr. Aneudy Molina, for continuous EEG monitoring since this is not available at this facility * Discussed with ID, recommended for TEN days total of Acyclovir IV, to complete Rocephin and Rifampin for 6 weeks finish 08/29/17, and to complete 7 days total of Diflucan 100mg IV daily for +yeast UT finish 08/17/17.
[2017-08-13] MEDS: Fluconazole IV 200mg/100 ml NS 100 MG in Premixed IV 1 EA IVPB SCH (10:33)
[2017-08-13] MEDS: Clotrimazole 1% Cream(30 gm) TOP SCH ×2 (10:34→18:00)
[2017-08-13] MEDS: Lactobacillus Acidophilus 500 MU Cap PO SCH ×2 (10:36→18:00)
[2017-08-13] MEDS: Lacosamide 200mg/20ml 100 MG in Sodium Chloride 0.9% 100 ML IV SCH ×3 (11:43→22:07)
[2017-08-13 12:27] LABS: SOURCE CSF
[2017-08-13] MEDS: Valproate 1,500 MG in Sodium Chloride 0.9% 100 ML IVPB SCH ×2 (12:43)
[2017-08-13 12:53] LABS: % CD4 (T HELPER CELL) 28 Percent (30-61); % CD8 (SUPPRESSOR T CELL) 62 Percent (12-42); ABSOLUTE CD4 CELLS 294 Cells/mcL (490-1740); ABSOLUTE CD8 CELLS 649 Cells/mcL (180-1170); ABSOLUTE LYMPHOCYTES 1048 Cells/mcL (850-3900); HELPER/SUPPRESSOR RATIO 0.45 Ratio (0.86-5.00)
--- NOTE | 2017-08-13 13:41 | VASCLAB ---
PROCEDURE: Right Upper Extremity Venous Duplex Exam HISTORY: RUE edema PRIORS: None. TECHNIQUE: Right upper extremity, internal jugular, subclavian, axillary, brachial, ulnar, radial, basilic and upper cephalic veins were evaluated. Flow was assessed with color Doppler, compressibility, assessment of phasic flow and augmentation response. Report prepared by AMERICA Huddleston, RVT FINDINGS: RIGHT: 1. Internal Jugular: 1.1. Compressibility - Fully compressible: Thrombus - None : Flow - Phasic: Augmentation -Normal: Reflux - None. 2. Subclavian: 2.1. Compressibility - Fully compressible: Thrombus - None : Flow - Phasic: Augmentation -Normal: Reflux - None. 3. Axillary: 3.1. Compressibility - Fully compressible: Thrombus - None : Flow - Phasic: Augmentation -Normal: Reflux - None. 4. Brachial: 4.1. Compressibility - Fully compressible: Thrombus - None: Flow - Phasic: Augmentation -Normal: Reflux - None. 5. Ulnar: 5.1. Compressibility - Fully compressible: Thrombus - None: Flow - Phasic: Augmentation -Normal: Reflux - None. 6. Radial: 6.1. Compressibility - Fully compressible: Thrombus - None: Flow - Phasic: Augmentation - Normal: Reflux - None. 7. Cephalic: 7.1. Compressibility - Fully compressible: Thrombus - None: Flow - Phasic: Augmentation -Normal: Reflux - None. 8. Basilic: 8.1. Compressibility - Fully compressible: Thrombus - None: Flow - Phasic: Augmentation -Normal: Reflux - None. OTHER FINDINGS: Right: None. IMPRESSION: Right: No evidence of vein thrombosis of the right upper extremity with excellent venous flow. Normal valve function noted of the right side. Normal venous flow noted in the left internal jugular and left subclavian veins.
[2017-08-13] MEDS: cefTRIAXone 2 GM in Sodium Chloride 0.9% 100 ML IVPB SCH (16:00)
--- NOTE | 2017-08-13 16:16 | CP.PCM.PN ---
Subjective - Date & Time of Evaluation Date of Evaluation: 08/13/17 Time of Evaluation: 10:00 - Subjective Subjective: Neurology Progress Note for Dr. Cornejo Patient seen and examined. Patient was seen this morning with eyes open but non- responsive to verbal stimuli. Unable to obtain ROS. Later on rounds, patient was witnessed with active seizures with twitching of the right eyebrow. Objective - Vital Signs/Intake and Output Vital Signs (last 24 hours): Temp Pulse Resp BP Pulse Ox 98.2 F 72 20 136/79 97 08/13/17 08:27 08/13/17 08:27 08/13/17 08:27 08/13/17 08:27 08/13/17 08:27 Intake and Output: 08/13/17 08/13/17 06:59 18:59 Intake Total 1285 670 Output Total 1100 600 Balance 185 70 - Medications Medications: Current Medications Acetaminophen (Tylenol 650mg/20.3ml Solution Ud) 650 mg PO Q6H PRN PRN Reason: Temperature >100.4 Last Admin: 08/06/17 20:57 Dose: 650 mg Clotrimazole (Lotrimin 1%) 1 gm TOP BID [facility] Stop: 08/17/17 10:00 Last Admin: 08/13/17 10:34 Dose: 1 applic Dextrose (Dextrose 50% Inj) 0 ml IV STAT PRN; Protocol PRN Reason: Hypoglycemia Protocol Last Admin: 08/03/17 17:55 Dose: 50 ml Heparin Sodium (Porcine) (Heparin) 5,000 units SC Q12 [facility] Last Admin: 08/13/17 10:34 Dose: 5,000 units Lacosamide 100 mg/ Sodium (Chloride) 110 mls @ 110 mls/hr IV Q12H [facility] Last Admin: 08/13/17 11:43 Dose: 110 mls/hr Acyclovir 600 mg/ Sodium (Chloride) 100 mls @ 100 mls/hr IV Q8H [facility] Stop: 08/29/17 23:59 Last Admin: 08/13/17 11:25 Dose: 100 mls/hr Ceftriaxone Sodium 2 gm/ (Sodium Chloride) 100 mls @ 100 mls/hr IVPB Q24H [facility] Last Admin: 08/12/17 16:00 Dose: 100 mls/hr Levetiracetam 1,500 mg/ Sodium (Chloride) 115 mls @ 460 mls/hr IVPB Q12H [facility] Last Admin: 08/13/17 13:54 Dose: 460 mls/hr Fluconazole 100 mg/ (Miscellaneous) 50 mls @ 100 mls/hr IVPB DAILY [facility] Stop: 08/17/17 10:00 Last Admin: 08/13/17 10:33 Dose: 100 mls/hr Valproate Sodium 1,500 mg/ (Sodium Chloride) 115 mls @ 92 mls/hr IVPB Q12H [facility] PRN Reason: 20 MG/MIN Last Admin: 08/13/17 12:43 Dose: 92 mls/hr Lactobacillus Acidophilus (Bacid Acidophilus) 1 cap PO BID [facility] Last Admin: 08/13/17 10:36 Dose: 1 cap Losartan Potassium (Cozaar) 25 mg PO DAILY [facility] Last Admin: 08/13/17 10:33 Dose: 25 mg Metoprolol Tartrate (Lopressor) 50 mg PO BID [facility] Last Admin: 08/13/17 10:33 Dose: 50 mg Rifampin (Rifampin Cap) 300 mg PO TID [facility] Last Admin: 08/13/17 13:25 Dose: 300 mg Rosuvastatin Calcium (Crestor) 40 mg PO HS [facility] Last Admin: 08/12/17 22:19 Dose: 40 mg Spironolactone (Aldactone) 25 mg PO BID [facility] Last Admin: 08/08/17 10:34 Dose: 25 mg - Labs Labs: 08/13/17 06:42 08/13/17 06:42 PT 14.6 SECONDS (9.7-12.2) H 08/01/17 19:55 INR 1.3 08/01/17 19:55 APTT 47 SECONDS (21-34) H 08/01/17 19:55 - Constitutional Appears: Chronically Ill - Head Exam Head Exam: ATRAUMATIC, NORMOCEPHALIC - Eye Exam Eye Exam: Normal appearance Additional comments: Leftward gaze - ENT Exam ENT Exam: Mucous Membranes Moist - Respiratory Exam Respiratory Exam: Clear to Ausculation Bilateral. absent: Rales, Rhonchi, Wheezes - Cardiovascular Exam Cardiovascular Exam: REGULAR RHYTHM, +S1, +S2 - GI/Abdominal Exam GI & Abdominal Exam: Soft, Normal Bowel Sounds. absent: Tenderness - Neurological Exam Neurological Exam: Altered Additional comments: Left upper extremity flaccid. Right upper extremity with some spasticity noted. Right eyebrow twitching. - Skin Skin Exam: Warm Assessment and Plan - Assessment and Plan (Free Text) Plan: Seizures Plan to arrange for transfer to [place] under epileptologist for continuous EEG monitoring. Continue Keppra 1500 mg Q12 Continue Vimpat 100 mg Q12 Continue Depakote 1500 mg Q12 Patient seen and discussed with Dr. Cornejo
--- NOTE | 2017-08-13 18:40 | CP.PCM.PN ---
Subjective - Date & Time of Evaluation Date of Evaluation: 08/13/17 Time of Evaluation: 18:39 - Subjective Subjective: AFEBRILE. RESTING COMFORTABLY. REPORTED PATIENT WAS WITNESSED WITH ACTIVE SEIZURES WITH TWITCHING OF THE RIGHT EYEBROW. (ON KEPPRA.VIMPAT, dEPAKOTE ) PATIENT OPENS EYES SPONTANEOUSLY. RT UPPER EXTREMITY FLACCID. LABS REVIEWED. CSF ANTI NMDAR -1 RECEPTOR ANTIBODIES NOT DETECTED. CSF LYME DNA NOT DETECTED. HSV-1-DNA PCR NONREACTIVE. HSV -11-DNA PCR - NON REACTIVE HIV1/2 AG/AB 4TH GENERATION -NONREACTIVE CD4 HELPER CELLS 294 LOW CD4/CD8 RATIO 0.45 LOW CASE DISCUSSED WITH STAFF /HOSPITALIST DR BREEN PLAN ; NOTED-PATIENT FOR TRANSFER TO [facility] FOR CONTINUOUS EEG MONITORING Objective - Vital Signs/Intake and Output Vital Signs (last 24 hours): Temp Pulse Resp BP Pulse Ox 98.3 F 69 20 116/70 100 08/13/17 16:47 08/13/17 16:47 08/13/17 16:47 08/13/17 16:47 08/13/17 16:47 Intake and Output: 08/13/17 08/13/17 06:59 18:59 Intake Total 1285 670 Output Total 1100 600 Balance 185 70 - Medications Medications: Current Medications Acetaminophen (Tylenol 650mg/20.3ml Solution Ud) 650 mg PO Q6H PRN PRN Reason: Temperature >100.4 Last Admin: 08/06/17 20:57 Dose: 650 mg Clotrimazole (Lotrimin 1%) 1 gm TOP BID [facility] Stop: 08/17/17 10:00 Last Admin: 08/13/17 10:34 Dose: 1 applic Dextrose (Dextrose 50% Inj) 0 ml IV STAT PRN; Protocol PRN Reason: Hypoglycemia Protocol Last Admin: 08/03/17 17:55 Dose: 50 ml Heparin Sodium (Porcine) (Heparin) 5,000 units SC Q12 [facility] Last Admin: 08/13/17 10:34 Dose: 5,000 units Lacosamide 100 mg/ Sodium (Chloride) 110 mls @ 110 mls/hr IV Q12H [facility] Last Admin: 08/13/17 11:43 Dose: 110 mls/hr Acyclovir 600 mg/ Sodium (Chloride) 100 mls @ 100 mls/hr IV Q8H [facility] Stop: 08/29/17 23:59 Last Admin: 08/13/17 11:25 Dose: 100 mls/hr Ceftriaxone Sodium 2 gm/ (Sodium Chloride) 100 mls @ 100 mls/hr IVPB Q24H [facility] Last Admin: 08/12/17 16:00 Dose: 100 mls/hr Levetiracetam 1,500 mg/ Sodium (Chloride) 115 mls @ 460 mls/hr IVPB Q12H [facility] Last Admin: 08/13/17 13:54 Dose: 460 mls/hr Fluconazole 100 mg/ (Miscellaneous) 50 mls @ 100 mls/hr IVPB DAILY [facility] Stop: 08/17/17 10:00 Last Admin: 08/13/17 10:33 Dose: 100 mls/hr Valproate Sodium 1,500 mg/ (Sodium Chloride) 115 mls @ 92 mls/hr IVPB Q12H [facility] PRN Reason: 20 MG/MIN Last Admin: 08/13/17 12:43 Dose: 92 mls/hr Lactobacillus Acidophilus (Bacid Acidophilus) 1 cap PO BID [facility] Last Admin: 08/13/17 10:36 Dose: 1 cap Losartan Potassium (Cozaar) 25 mg PO DAILY [facility] Last Admin: 08/13/17 10:33 Dose: 25 mg Metoprolol Tartrate (Lopressor) 50 mg PO BID [facility] Last Admin: 08/13/17 17:54 Dose: 50 mg Rifampin (Rifampin Cap) 300 mg PO TID [facility] Last Admin: 08/13/17 17:54 Dose: 300 mg Rosuvastatin Calcium (Crestor) 40 mg PO HS [facility] Last Admin: 08/12/17 22:19 Dose: 40 mg Spironolactone (Aldactone) 25 mg PO BID [facility] Last Admin: 08/08/17 10:34 Dose: 25 mg - Labs Labs: 08/13/17 06:42 08/13/17 06:42 PT 14.6 SECONDS (9.7-12.2) H 08/01/17 19:55 INR 1.3 08/01/17 19:55 APTT 47 SECONDS (21-34) H 08/01/17 19:55 - Constitutional Appears: No Acute Distress, Chronically Ill - Head Exam Head Exam: NORMAL INSPECTION - Eye Exam Eye Exam: PERRL - ENT Exam ENT Exam: Mucous Membranes Dry - Neck Exam Neck Exam: Normal Inspection - Respiratory Exam Respiratory Exam: Clear to Ausculation Bilateral - Cardiovascular Exam Cardiovascular Exam: REGULAR RHYTHM, +S1 - GI/Abdominal Exam GI & Abdominal Exam: Soft, Normal Bowel Sounds - Extremities Exam Extremities Exam: Joint Swelling (LT KNEE SWOLLEN ,+VE EFFUSION SMALL. NON TENDER.NOT WARM.). absent: Calf Tenderness - Neurological Exam Neurological Exam: Altered - Psychiatric Exam Psychiatric exam: Flat Affect - Skin Skin Exam: Normal Color, Warm Assessment and Plan (1) New onset seizure Status: Acute (2) Hypokalemia Status: Acute (3) Hyponatremia Status: Resolved (4) PAF (paroxysmal atrial fibrillation) Status: Acute (5) Septic arthritis Status: Chronic (6) Osteomyelitis of left knee region Status: Acute (7) H/O mitral valve replacement Status: Chronic (8) Diabetes mellitus Status: Chronic - Assessment and Plan (Free Text) Assessment: NEW ONSET OF SEIZURES/ACUTE FLACCID PARALYSIS - ETIOLOGY /? VIRAL ENCEPHALOMYLITIS - MSSA SEPTIC ARTHRITIS LEFT KNEE/WITH PSEUDOGOUT /? OSTEOMYLITIS - PROSTHETIC MITRAL- VALVE ENDOCARDITIS.(+VE VEGETATIONS could NOT BE RULED OUT ON 2-d ECHO ). -HX OF CABG /MVR. -IDIOPATHIC CD4 -LYMPHOCYTOPENIA. -CONGESTIVE HEART FAILURE. -PAROXSYSMAL ATRIAL FIBRILLATION. -ELECTROLYTE IMBALANCE -SIADH -RHEUMATOID ARTHRITIS/OSTEOPOROSIS BY HISTORY. -DM-2 PLAN . CONTINUE ON IV ACYCLOVIR 600MG IV Q 8HRLY 08/08/17 X TOTAL OF 10 DAYS. ON IV ROCEPHIN 2GM IV Q 24HRLY. 08/08/17 X4WKS CONTINUE PO RIFAMPIN 300MG PO TID.X 4WKS ON IV DIFLUCAN 100MG IV Q 24HRLY 08/11/17 X 7DAYS F/U CSF STUDIES -P PER NEURO-FOR TRANSFER TO [facility] FOR MONITORING SEIZURES AND EEG.
--- NOTE | 2017-08-13 21:00 | CP.PCM.PN ---
Subjective - Date & Time of Evaluation Date of Evaluation: 08/13/17 Time of Evaluation: 19:30 - Subjective Subjective: Patient reportedly with continued seizure activity, now being planned for transfer to [place] for continuous EEG monitoring; Objective - Vital Signs/Intake and Output Vital Signs (last 24 hours): Temp Pulse Resp BP Pulse Ox 98.3 F 69 20 116/70 100 08/13/17 16:47 08/13/17 16:47 08/13/17 16:47 08/13/17 16:47 08/13/17 16:47 Intake and Output: 08/13/17 08/14/17 18:59 06:59 Intake Total 670 Output Total 600 Balance 70 - Medications Medications: Current Medications Acetaminophen (Tylenol 650mg/20.3ml Solution Ud) 650 mg PO Q6H PRN PRN Reason: Temperature >100.4 Last Admin: 08/06/17 20:57 Dose: 650 mg Clotrimazole (Lotrimin 1%) 1 gm TOP BID [facility] Stop: 08/17/17 10:00 Last Admin: 08/13/17 10:34 Dose: 1 applic Dextrose (Dextrose 50% Inj) 0 ml IV STAT PRN; Protocol PRN Reason: Hypoglycemia Protocol Last Admin: 08/03/17 17:55 Dose: 50 ml Heparin Sodium (Porcine) (Heparin) 5,000 units SC Q12 [facility] Last Admin: 08/13/17 10:34 Dose: 5,000 units Lacosamide 100 mg/ Sodium (Chloride) 110 mls @ 110 mls/hr IV Q12H [facility] Last Admin: 08/13/17 11:43 Dose: 110 mls/hr Acyclovir 600 mg/ Sodium (Chloride) 100 mls @ 100 mls/hr IV Q8H [facility] Stop: 08/29/17 23:59 Last Admin: 08/13/17 11:25 Dose: 100 mls/hr Ceftriaxone Sodium 2 gm/ (Sodium Chloride) 100 mls @ 100 mls/hr IVPB Q24H [facility] Last Admin: 08/12/17 16:00 Dose: 100 mls/hr Levetiracetam 1,500 mg/ Sodium (Chloride) 115 mls @ 460 mls/hr IVPB Q12H [facility] Last Admin: 08/13/17 13:54 Dose: 460 mls/hr Fluconazole 100 mg/ (Miscellaneous) 50 mls @ 100 mls/hr IVPB DAILY [facility] Stop: 08/17/17 10:00 Last Admin: 08/13/17 10:33 Dose: 100 mls/hr Valproate Sodium 1,500 mg/ (Sodium Chloride) 115 mls @ 92 mls/hr IVPB Q12H [facility] PRN Reason: 20 MG/MIN Last Admin: 08/13/17 12:43 Dose: 92 mls/hr Lactobacillus Acidophilus (Bacid Acidophilus) 1 cap PO BID [facility] Last Admin: 08/13/17 10:36 Dose: 1 cap Losartan Potassium (Cozaar) 25 mg PO DAILY [facility] Last Admin: 08/13/17 10:33 Dose: 25 mg Metoprolol Tartrate (Lopressor) 50 mg PO BID [facility] Last Admin: 08/13/17 17:54 Dose: 50 mg Rifampin (Rifampin Cap) 300 mg PO TID [facility] Last Admin: 08/13/17 17:54 Dose: 300 mg Rosuvastatin Calcium (Crestor) 40 mg PO HS [facility] Last Admin: 08/12/17 22:19 Dose: 40 mg Spironolactone (Aldactone) 25 mg PO BID [facility] Last Admin: 08/08/17 10:34 Dose: 25 mg - Labs Labs: 08/13/17 06:42 08/13/17 06:42 PT 14.6 SECONDS (9.7-12.2) H 08/01/17 19:55 INR 1.3 08/01/17 19:55 APTT 47 SECONDS (21-34) H 08/01/17 19:55 - Constitutional Appears: Non-toxic, No Acute Distress - Eye Exam Eye Exam: absent: Scleral icterus - ENT Exam ENT Exam: Mucous Membranes Moist - Respiratory Exam Respiratory Exam: absent: Respiratory Distress Additional comments: L basal rales; - Cardiovascular Exam Cardiovascular Exam: RRR. absent: Gallop Additional comments: systolic murmur; - GI/Abdominal Exam GI & Abdominal Exam: Soft. absent: Distended, Tenderness - Extremities Exam Additional comments: mild leg edema proximally; - Neurological Exam Additional comments: arousable but not responding to verbal stimuli or following commands; - Psychiatric Exam Psychiatric exam: absent: Agitated - Skin Skin Exam: Warm. absent: Cyanosis Assessment and Plan (1) Hyponatremia Assessment & Plan: Helped by possible osmotic diuresis or even partial DI (>2L UO despite not being on diuretics), Na trending slightly higher, continue to monitor; Status: Resolved (2) CHF (congestive heart failure) Assessment & Plan: With severe systolic dysfunction; stable respiratory status; continue meds to optimize CHF (B-meredith/ARB); continue to hold diuretics for now; Status: Chronic (3) Septic arthritis Status: Chronic (4) Hypokalemia Assessment & Plan: Monitor, keep K ~4.0 in the setting of cardiomyopathy; Status: Acute (5) NICOLE (acute kidney injury) Assessment & Plan: Serum creat increased from 0.6 -> 1.1, otherwise stable lately; urine lytes not consistent with pre-renal etiology; possibly mild ATN from nephrotoxic meds; avoid further nephrotoxic insults; Status: Acute
[2017-08-14] MEDS: levETIRAcetam 1,500 MG in Sodium Chloride 0.9% 100 ML IVPB SCH ×2 (01:30→13:53)
--- NOTE | 2017-08-14 07:04 | CP.PCM.PN ---
Subjective - Date & Time of Evaluation Date of Evaluation: 08/14/17 Time of Evaluation: 07:00 - Subjective Subjective: Ms. Mobley was seen and examined at the bedside. She opens her eyes with tactile stimuli, remains non-verbal. Moves her left upper extremity spontaneously with right arm remains flaccid, moves her bilateral lower extremities in response to noxious stimuli. The patient is awaiting bed in [facility] for further evaluation of her refractory seizures. There was no untoward events overnight. Objective - Vital Signs/Intake and Output Vital Signs (last 24 hours): Temp Pulse Resp BP Pulse Ox 97.5 F L 69 20 149/76 100 08/14/17 00:00 08/14/17 00:00 08/14/17 00:00 08/14/17 00:00 08/14/17 00:00 Intake and Output: 08/13/17 08/14/17 18:59 06:59 Intake Total 670 480 Output Total 600 400 Balance 70 80 - Medications Medications: Current Medications Acetaminophen (Tylenol 650mg/20.3ml Solution Ud) 650 mg PO Q6H PRN PRN Reason: Temperature >100.4 Last Admin: 08/06/17 20:57 Dose: 650 mg Clotrimazole (Lotrimin 1%) 1 gm TOP BID [facility] Stop: 08/17/17 10:00 Last Admin: 08/13/17 18:00 Dose: 1 applic Dextrose (Dextrose 50% Inj) 0 ml IV STAT PRN; Protocol PRN Reason: Hypoglycemia Protocol Last Admin: 08/03/17 17:55 Dose: 50 ml Heparin Sodium (Porcine) (Heparin) 5,000 units SC Q12 [facility] Last Admin: 08/13/17 21:45 Dose: 5,000 units Lacosamide 100 mg/ Sodium (Chloride) 110 mls @ 110 mls/hr IV Q12H [facility] Last Admin: 08/13/17 22:07 Dose: 110 mls/hr Acyclovir 600 mg/ Sodium (Chloride) 100 mls @ 100 mls/hr IV Q8H [facility] Stop: 08/29/17 23:59 Last Admin: 08/14/17 03:00 Dose: 100 mls/hr Ceftriaxone Sodium 2 gm/ (Sodium Chloride) 100 mls @ 100 mls/hr IVPB Q24H [facility] Last Admin: 08/13/17 16:00 Dose: 100 mls/hr Levetiracetam 1,500 mg/ Sodium (Chloride) 115 mls @ 460 mls/hr IVPB Q12H [facility] Last Admin: 08/14/17 01:30 Dose: 460 mls/hr Fluconazole 100 mg/ (Miscellaneous) 50 mls @ 100 mls/hr IVPB DAILY [facility] Stop: 08/17/17 10:00 Last Admin: 08/13/17 10:33 Dose: 100 mls/hr Valproate Sodium 1,500 mg/ (Sodium Chloride) 115 mls @ 92 mls/hr IVPB Q12H [facility] PRN Reason: 20 MG/MIN Last Admin: 08/14/17 00:00 Dose: 92 mls/hr Lactobacillus Acidophilus (Bacid Acidophilus) 1 cap PO BID [facility] Last Admin: 08/13/17 18:00 Dose: 1 cap Losartan Potassium (Cozaar) 25 mg PO DAILY [facility] Last Admin: 08/13/17 10:33 Dose: 25 mg Metoprolol Tartrate (Lopressor) 50 mg PO BID [facility] Last Admin: 08/13/17 17:54 Dose: 50 mg Rifampin (Rifampin Cap) 300 mg PO TID [facility] Last Admin: 08/13/17 17:54 Dose: 300 mg Rosuvastatin Calcium (Crestor) 40 mg PO HS [facility] Last Admin: 08/13/17 21:45 Dose: 40 mg Spironolactone (Aldactone) 25 mg PO BID [facility] Last Admin: 08/08/17 10:34 Dose: 25 mg - Labs Labs: 08/13/17 06:42 08/13/17 06:42 PT 14.6 SECONDS (9.7-12.2) H 08/01/17 19:55 INR 1.3 08/01/17 19:55 APTT 47 SECONDS (21-34) H 08/01/17 19:55 - Constitutional Appears: No Acute Distress - Head Exam Head Exam: NORMAL INSPECTION - Neurological Exam Neurological Exam: Awake Neuro motor strength exam: Left Upper Extremity: 2/1, Right Upper Extremity: 0, Left Lower Extremity: 0, Right Lower Extremity: 0 Additional comments: She remains non verbal, moves her left upper extremity spontaneously. Assessment and Plan (1) Seizure Assessment & Plan: Case discussed with Dr. Cornejo, continue all current medical regimen. Recommend transfer to [facility] for further evaluation and treatment of her refractory seizures. Pending valproic level. Status: Acute
[2017-08-14 07:30] LABS: BASO % 0.4 % (0.0-2.0); EOS # 0.1 K/uL (0.0-0.7); EOS % 1.8 % (0.0-4.0); LYMPH # 1.3 K/uL (1.0-4.3); LYMPH % 28.5 % (20.0-40.0); MEAN CELL VOLUME 88.4 fL (81.0-99.0); MEAN CORPUSCULAR HEMOGLOBIN 29.3 pg (27.0-31.0); MEAN CORPUSCULAR HGB CONC 33.2 g/dL (33.0-37.0); MEAN PLATELET VOLUME 8.6 fL (7.2-11.7); MONO # 0.3 K/uL (0.0-0.8); MONO % 7.6 % (0.0-10.0); NEUT # 2.7 K/uL (1.8-7.0); NEUT % 61.7 % (50.0-75.0); NRBC % 0.6 % (0.0-2.0); RBC 3.06 Mil/uL (3.80-5.20); RED CELL DISTRIBUTION WIDTH 17.6 % (11.5-14.5); WHITE BLOOD COUNT 4.4 K/uL (4.8-10.8)
[2017-08-14 07:58] LABS: IMMUNOGLOBULIN G 2254.4 mg/dL (700.0-1600.0); IMMUNOGLOBULIN M 353.7 mg/dL (40.0-230.0)
[2017-08-14 08:16] LABS: IMMUNOGLOBULIN A 1061.5 mg/dL (70.0-400.0)
[2017-08-14 09:07] VITALS: BP 147/75; PULSE 83; TEMP 98.1; O2SAT 97
[2017-08-14] MEDS: Clotrimazole 1% Cream(30 gm) TOP SCH (09:33)
[2017-08-14] MEDS: Lactobacillus Acidophilus 500 MU Cap PO SCH (09:45)
--- NOTE | 2017-08-14 10:01 | CP.PCM.PN ---
<Maggie Ozuna - Last Filed: 08/14/17 12:24> Subjective - Date & Time of Evaluation Date of Evaluation: 08/14/17 Time of Evaluation: 07:50 - Subjective Subjective: Patient seen and examined at bedside. Patient resting comfortably in bed. No acute events overnight. ROS unattainable due to patient status. Objective - Vital Signs/Intake and Output Vital Signs (last 24 hours): Temp Pulse Resp BP Pulse Ox 98.1 F 83 20 147/75 97 08/14/17 09:06 08/14/17 09:06 08/14/17 09:06 08/14/17 09:06 08/14/17 09:06 Intake and Output: 08/14/17 08/14/17 06:59 18:59 Intake Total 1080 Output Total 900 Balance 180 - Medications Medications: Current Medications Acetaminophen (Tylenol 650mg/20.3ml Solution Ud) 650 mg PO Q6H PRN PRN Reason: Temperature >100.4 Last Admin: 08/06/17 20:57 Dose: 650 mg Clotrimazole (Lotrimin 1%) 1 gm TOP BID [facility] Stop: 08/17/17 10:00 Last Admin: 08/14/17 09:33 Dose: 1 applic Dextrose (Dextrose 50% Inj) 0 ml IV STAT PRN; Protocol PRN Reason: Hypoglycemia Protocol Last Admin: 08/03/17 17:55 Dose: 50 ml Heparin Sodium (Porcine) (Heparin) 5,000 units SC Q12 [id number] Last Admin: 08/13/17 21:45 Dose: 5,000 units Lacosamide 100 mg/ Sodium (Chloride) 110 mls @ 110 mls/hr IV Q12H [facility] Last Admin: 08/13/17 22:07 Dose: 110 mls/hr Acyclovir 600 mg/ Sodium (Chloride) 100 mls @ 100 mls/hr IV Q8H [facility] Stop: 08/29/17 23:59 Last Admin: 08/14/17 03:00 Dose: 100 mls/hr Ceftriaxone Sodium 2 gm/ (Sodium Chloride) 100 mls @ 100 mls/hr IVPB Q24H [facility] Last Admin: 08/13/17 16:00 Dose: 100 mls/hr Levetiracetam 1,500 mg/ Sodium (Chloride) 115 mls @ 460 mls/hr IVPB Q12H [facility] Last Admin: 08/14/17 01:30 Dose: 460 mls/hr Fluconazole 100 mg/ (Miscellaneous) 50 mls @ 100 mls/hr IVPB DAILY [facility] Stop: 08/17/17 10:00 Last Admin: 08/13/17 10:33 Dose: 100 mls/hr Valproate Sodium 1,500 mg/ (Sodium Chloride) 115 mls @ 92 mls/hr IVPB Q12H [facility] PRN Reason: 20 MG/MIN Last Admin: 08/14/17 00:00 Dose: 92 mls/hr Lactobacillus Acidophilus (Bacid Acidophilus) 1 cap PO BID [facility] Last Admin: 08/13/17 18:00 Dose: 1 cap Losartan Potassium (Cozaar) 25 mg PO DAILY [facility] Last Admin: 08/13/17 10:33 Dose: 25 mg Metoprolol Tartrate (Lopressor) 50 mg PO BID [facility] Last Admin: 08/13/17 17:54 Dose: 50 mg Rifampin (Rifampin Cap) 300 mg PO TID [facility] Last Admin: 08/13/17 17:54 Dose: 300 mg Rosuvastatin Calcium (Crestor) 40 mg PO HS [facility] Last Admin: 08/13/17 21:45 Dose: 40 mg Spironolactone (Aldactone) 25 mg PO BID [facility] Last Admin: 08/08/17 10:34 Dose: 25 mg - Labs Labs: 08/14/17 06:57 08/13/17 06:42 PT 14.6 SECONDS (9.7-12.2) H 08/01/17 19:55 INR 1.3 08/01/17 19:55 APTT 47 SECONDS (21-34) H 08/01/17 19:55 - Additional Findings Additional findings: - Constitutional Appears: No Acute Distress, Chronically Ill - Head Exam Head Exam: ATRAUMATIC, NORMAL INSPECTION, NORMOCEPHALIC - Eye Exam Eye Exam: Normal appearance, PERRL Additional comments: opens eye spontaneously but does not follow commands to follow my finger - ENT Exam ENT Exam: Mucous Membranes Moist - Respiratory Exam Respiratory Exam: Clear to Ausculation Bilateral, NORMAL BREATHING PATTERN. absent: Accessory Muscle Use, Rales, Rhonchi, Wheezes, Respiratory Distress Additional comments: Birthmark noted on right chest wall - Cardiovascular Exam Cardiovascular Exam: RRR, +S1, +S2 - GI/Abdominal Exam GI & Abdominal Exam: Soft, Normal Bowel Sounds. absent: Distended, Tenderness - Exam Additional comments: apodaca in place - Extremities Exam Extremities Exam: Joint Swelling (left knee), Edema of right upper extremity. absent: Calf Tenderness, Pedal Edema - Neurological Exam Neurological Exam: Awake Neuro motor strength exam: Left Upper Extremity: 3, Right Upper Extremity: 2/1 ( random muscle contractions ), Left Lower Extremity: 2/1, Right Lower Extremity: 2/1 Additional comments: spontaneously raises left arm but there is drift towards the bed after 3 seconds positive startle response unprovoked facial twitching (eyebrow raising) and right arm twitching dose not follow commands opens eyes spontaneously grimace to painful stimuli - Skin Skin Exam: Dry, Intact, Warm, Rash (in groin area, improving) Assessment and Plan - Assessment and Plan (Free Text) Plan: Disposition: Patient will be transferred to [place] for continuous EEG monitoring pending available bed. New onset seizure * 08/01: Code Stroke with GCS 4; Via ALS from [facility], experiencing seizure-like activity witnessed by ALS; given Ativan 2mg on route, NIHSS: 29 ( noted for dysarthria and profound neglect does not recognize own hand or oreitns to one side. ED attempted to reverse with Flumazenil given patient appeared comatose. Intubated in the ED for airway protection with etomidate. Sent to ICU. Now out of ICU. * Factors for seizure activity: * Precipitating factors: hyponatremia, hypokalemia, hypomagnesemia - all corrected and patient continues to have seizure activity * Antibiotic side effect: gentamicin (seizure, confusion, lethargy per uptodate ) - discontinued; rifampin (fatigue, drowsiness, confusion); Cefazolin (seizure ) - discontinued * pain medication: tramadol - discontinued * Imaging: * CT head (08/01/17): nonspecific white matter changes. Acute infarction may be CT occult within first 24 hours. If a focal deficit persists, consider for further evaulation. Atherosclerotic disease of intracranial arteries. probable chronic lacunar infarcts within basal ganglia. * CT Head and neck (08/01/17): no flow limiting cervical cartoid artery stenosis or vessel occlusion. Patent vertebral arteries * CT Head (08/02/17): no evidence of acute infarct. Chronic microvascular white matter ischemic change. otherwise unremarkable. * MRI Brain (08/05/17): NO acute intracranial hemorrhage. Moderate chronic white matter changes with scattered small basal nuclei, brain stem, and left cerebellar lacunar infarcts * MRI Neck (08/05/17): NO evidence of any significant stenosis of the carotid arteries * MRI Brain (08/05/17): Right distal Posterior Cerebral Artery can't be visualized but this may be artifactual vs occlusion can't be excluded. * MRI Brain with and without contrast (08/09/17): No evidence of abnormal signal , edema, or enhancement in the cerebral cortex to suggest encephalitis and active infectious process. NO evidence of abnormal leptomeningeal enhancement * Neurology (Dr. Cornejo/Josh) on board, help appreciated * needs continuous EEG monitoring - waiting for transfer * Lumbar Tap 08/08/17 by ICU Team and the following studies done: * WBC: 0 * RBC: 2 * Total cell counted: not performed * Monos/macrophages: not performed * glucose: 69 * Total protein: 44 * Negative: Gram Stain, Cryptococcal Ag, VDRL, HSV 1 PCR, HSV 2 PCR, HSV Culture, Bacterial Culture, Lyme DNA and IgG, AFB Smear and Culture, Fungal Smear and Culture, CSF Gram Stain, CSF Fungal Culture preliminary, CSF Mycobacterium Culture, WNV IgG 67 and IgM 0, Anti-NMDAR Antibodies * f/u enterovirus and arbovirus * PICC line (had been placed 07/24/17). * Monitor electrolytes Meds: * 08/08/17-current: Ceftriaxone 2 gram IV Q24H * 08/03-current: Vimpat 100 mg IVP Q12H * 08/08/17: Acyclovir 600 mg IV Q8H added - continue 10 days total (08/17/17) * 08/10/17: Keppra increased to 1,500 mg IV Q12H * 08/11/17: Valproic Acid increased to 1,500 mg IV Q12H and level 19.3 (L) on * 08/08-08/12: Dexamethasone 10 mg IV x 1 dose followed by 6 mg IV Q6H RUE Edema * 08/13: RUE venous duplex negative for thrombus Hypokalemia/Hypomagnesemia * WNL at this time * Replete as needed Hyponatremia/SIADH - resolved, stable * Nephrology (Dr. Eddy) on the case, help appreciated * 08/12: urine osmolality 503, urine Cr 41.5, and urine Na 129 * Patient has received Tolvaptan 30 mg PO 1x/day on 08/03/17/, 08/04/17, 08/05/17, 08/06/17. However patient is also on Rifampin (as part of treatment for Left Knee Septic Arthritis) and this may interfere with the Tolvaptan. * Aldactone 25 mg PO Q12H is on HOLD Septic arthritis * Infectious Disease (Dr. Jannie Avina) on the case, help appreciated * Last admission: Patient was discharged on Ancef, Rifampin, and gentamicin. MICS available (07/26/17) and came back on 08/01/17. * Rocephin 2 g Q24H (started 08/08) * Rifampin 300mg PO TID (08/02/17-08/29/17) * Stopped Vancomycin 750mg IVPB Q12H (started 08/03/17) - OK'd by Dr. Avina * Completed Gentamicin Sulfate 70mg IVPB Q24H (active 08/04/17) X 5 bags with last dose on 08/08/17 * Orthopedics LONA Portillo Stock removed sutures 08/07/17 H/O mitral valve replacement (bioprosthetic valve) * Cardiology (Dr. Rowan) on the case, help appreciated; Dr. Rush covering this weekend * Will need to follow-up in regards anticoagulation such as aspirin in regards to bioprosthetic valvue * Per cardiology, do not start chemical anticoagulation given recurrent history of GI bleeding * Echocardiogram (08/02/17): No ASD seen. * Echocardiogram (07/22/17): limited study, vegetation on MV cannot be excluded. Rec. ASTRID to define MV/Calcified mitral ring? * Echocardiogram (07/01/17): systolic function is severely impaired. Anterior and septa; aldridge reveal dyskinesis with wall thinning. (indicative of prior transmural CA), inferior wall is severely hypokinestic, lateral wall is mod to severely hypokinetic, Left atrium is moderately dilated, right atrium is moderately dilated, mild concentric left ventricular hypertrophy, mild mitral valve stenosis, * Cardiac cath: severe multivessel coronary artery disease, severe left ventricular systolic dysfunction (2017) * Hx CABG * Prosthetic valve * NO ASTRID considering findings on MRI Brain 08/05/17 that showed chronic lacunar infarcts Diabetes mellitus * [id number]: 5.1 * Controlled * Accuchecks Q6H Hypertension * Lopressor 50mg PO BID * Crestor 2.5mg POqHS * Cozaar 25mg PO daily Hx Coronary artery disease/CABG * Lopressor 50mg PO BID * Crestor 2.5mg POqHS * Cozaar 25mg PO daily Severe systolic congestive heart failure * Lopressor, Cozaar * On last admission recommends for outpatient AICD by Dr Rowan Atelectasis * CT Chest (08/02/17): small right pleural effusion and right lower lobe subsegmental atelectasis. Opacity seen at right lung base on earlier chest radiograph of the same date was likely artifactual due to overlying medical equipment Paroxysmal Atrial Fibrillation * Lopressor 5mg IVPQ6H * Lopressor 50mg PO BID * Per cardiology, hold chemical anticoagulation, patient has history of recurrent GI bleed, awaiting brain MRI, may or may not need ASTRID Fungal Rash * Inner groin folds and back side rash improving * Lotrimin 1% cream UTI Yeast * 08/11/17: Started Diflucan (STOP DATE 08/17/17) * Repeat Urine Culture ordered for 08/15/17 Prophylactic measure * Heparin 5000 units [id number] was placed on HOLD for Lumbar Tap * Protonix 40mg IVP Q12H * Bacid 1 cap PO BID * Tylenol 650 mg Q6H PRN Fever * Duoneb Q6H PRN * PT/OT eval * Wound care Patient seen, examined, and discussed with Dr. Agrawal <Miriam Agrawal V - Last Filed: 08/14/17 21:54> Objective - Vital Signs/Intake and Output Vital Signs (last 24 hours): Temp Pulse Resp BP Pulse Ox 98.1 F 83 20 147/75 97 08/14/17 09:06 08/14/17 09:06 08/14/17 09:06 08/14/17 09:06 08/14/17 09:06 Intake and Output: 08/14/17 08/15/17 18:59 06:59 Intake Total 680 Output Total 500 Balance 180 - Labs Labs: 08/14/17 06:57 08/14/17 10:51 PT 14.6 SECONDS (9.7-12.2) H 08/01/17 19:55 INR 1.3 08/01/17 19:55 APTT 47 SECONDS (21-34) H 08/01/17 19:55 Assessment and Plan (1) New onset seizure Status: Acute (2) Hypokalemia Status: Acute (3) Hyponatremia Status: Resolved (4) SIADH (syndrome of inappropriate ADH production) Status: Acute (5) Septic arthritis Status: Chronic (6) H/O mitral valve replacement Status: Chronic (7) Diabetes mellitus Status: Chronic (8) Hypertension Status: Chronic (9) Coronary artery disease Status: Chronic (10) Severe systolic congestive heart failure Status: Chronic (11) Atelectasis Status: Acute (12) PAF (paroxysmal atrial fibrillation) Status: Acute (13) Prophylactic measure Status: Acute Attending/Attestation - Attestation I have personally seen and examined this patient.: Yes I have fully participated in the care of the patient.: Yes I have reviewed all pertinent clinical information, including history, physical exam and plan: Yes Notes (Text): Patient seen, examined and case discussed with day-time resident. Patient seen this morning with the resident, patient has predominant left side gaze, patient unable to speak or follow commands. I had used the [employer] leader at bedside but patient did not follow. Patient's present at bedside. Did discuss with patient's that we are awaiting bed for [place] this morning and it is not available. Patient is on 3 antiepileptic medications and is on antibiotic to cover for both septic and/or endocarditis. Medication reconciliation was completed yesterday and we are awaiting bed when available. Assessment/Plan 1) New onset seizure PLEDs Encephalitis * 08/01: per review of ED triage note: Via ALS from [facility], prior notification of resident experiencing ''jerky movements few secs for a total of 3 episodes''; seizure-like activity witnessed by ALS, treated with ATIVAN 2MG IV GIVEN VIA PICC LINE TO RT ARM PER REPORT GIVEN; on NRB 100%, BFE=126fn/d * 08/01: Per review of ED note: In ambulance, given Ativan 2mg on route, NIHSS: 29 (noted for dysarthria and profound neglect does not recognize own hand or oreitns to one side. ED attempted to reverse with Flumazenil given patient appeared comatose. Intubated in the ED for airway protection with etomidate * 08/01: Code stroke GCS: 4 * Factors for seizure activity: * Precipitating factors: hyponatremia, hypokalemia, hypomagnesium * Antibiotic side effect: gentamicin (seizure, confusion, lethargy per uptodate ), rifampin (fatigue, drowsiness, confusion), Cefazolin (seizure) * pain medication: tramadol * Imaging: * CT head (08/01/17): nonspecific white matter changes. Acute infarction may be CT occult within first 24 hours. If a focal deficit persists, consider for further evaulation. Atherosclerotic disease of intracranial arteries. probable chronic lacunar infarcts within basal ganglia. * CT Head and neck (08/01/17): no flow limiting cervical cartoid artery stenosis or vessel occlusion. Patent vertebral arteries * CT Head (08/02/17): no evidence of acute infarct. Chronic microvascular white matter ischemic change. otherwise unremarkable. * MRI Brain (08/05/17): NO acute intracranial hemorrhage. Moderate chronic white matter changes with scattered small basal nuclei, brain stem, and left cerebellar lacunar infarcts * MRI Neck (08/05/17): NO evidence of any significant stenosis of the carotid arteries * MRI Brain (08/05/17): Right distal Posterior Cerebral Artery can't be visualized but this may be artifactual vs occlusion can't be excluded. * MRI Brain with and without contrast (08/09/17): No evidence of abnormal signal , edema, or enhancement in the cerebral cortex to suggest encephalitis and active infectious process. NO evidence of abnormal leptomeningeal enhancement * Neurology (Dr. oCrnejo/Josh) on board, help appreciated * Dr. Moreno note (08/10): EEG: report dictated: --initial eeg showed brief 2 second seizure in left temporal lobe with triphasics; repeat eeg on saturday (08/09 ) showed: PLEDS in the left temporal and frontal lobe, 3 discrete seizures evolving from the left temporal, subclinical. Focal right arm clinical seizures were not present during the EEG, as i was bedside reading it, all these findings were subclinical. MRI Brain: shows enhancement in the temporal and parietal, left cortical region. * c/w Vimpat 100 mg IVP Q12H * 08/08/17: Acyclovir 600 mg IV Q8H added * 08/10/17: Keppra increased to 1,500 mg IV Q12H * 08/11/17: c/w Keppra, c/w Vimpat Valproic Acid increased to 1,500 mg IV Q12H and level 19.3 (L) on 08/12/17; Follow-up Valproic acid on 08/14 * 08/12/17: Discussed with neurology, patient may require transfer for refractory seizure * Patient for Lumbar Tap 08/08/17 by ICU Team and the following studies have been ordered and will need to be followed up: * Tube 1: cell count with differential, protein 44, glucose 69, Gram Stain negative, Cryptococcal Ag negative, Bacterial Ag, VDRL negative * Tube 2: HSV 1 PCR: negative , HSV 2 PCR: negative, AFB PCR, WNV PCR, Lyme PCR : negative * Tube 3: Bacterial Culture negative, AFB Smear and Culture negative, Fungal Smear and Culture negative, HSV Culture: not isolated (CSF) PCR: negative Cytology Anti-NMDAR Antibodies to look for I-Tpahhp-O-Aspartate Receptor Ab: does not show antibodies * CSF Gram Stain is negative to date * CSF Fungal Culture preliminary is negative to date * CSF Mycobacterium Culture shows NO AFB to date * Ceftriaxone 2 gram IV Q24H started 08/08/17 to finish 08/29/17 for 6 weeks * Dexamethasone 10 mg IV x 1 dose followed by 6 mg IV Q6H through 08/12/17 * 08/08/17: Acyclovir 600 mg IV Q8H added * 08/13: Discussed with ID, recommending total 10 days of Acyclovir (to complete 08/18/17), continue 4 weeks of Rocephin and Rifampin to complete 6 week antibiotic therapy for septic arthritis/endocarditis. Ceftriaxone 2 gram IV Q24H started 08/08/17 to finish 08/29/17 for 6 weeks, Rifampin 300mg PO TID ( started 08/02/17 for 6 weeks total) * PICC line (had been placed 07/24/17). * Monitor electrolytes 2) Hypokalemia/Hypomagnesemia * Replete as needed 3) Hyponatremia/SIADH - resolved, stable * Nephrology (Dr. Eddy) on the case, help appreciated * SIADH/ * Patient has received Tolvaptan 30 mg PO 1x/day on 08/03/17/, 08/04/17, 08/05/17, 08/06/17. * However patient is also on Rifampin (as part of treatment for Left Knee Septic Arthritis) and this may interfere with the Tolvaptan. * Aldactone 25 mg PO Q12H is on HOLD * Sodium has normalized 4) Septic arthritis-->will need 6 weeks of IV abx * Infectious Disease (Dr. Jannie Avina) on the case, help appreciated * Last admission: Patient was discharged on Ancef, Rifampin, and gentamicin. MICS available (07/26/17) and came back on 08/01/17. * Gentamicin Sulfate 70mg IVPB Q24H (active 08/04/17) X 5 bags with last dose on 08/08/17 * Monitor renal function * Rifampin 300mg PO TID (08/02/17) * Will impact [place] * Stopped Vancomycin 750mg IVPB Q12H (started 08/03/17) - OK'd by Dr. Avina * Monitor renal function * Rocephin 2 g Q24H (started 08/08) * She will need a total of 6 weeks of Antibiotics with STOP DATE for Rifampin of 08/29/17 (before discontinuing on this date--Confirmed by ID on 08/13/17 * Orthopedics LONA Ann removed sutures 08/07/17 * 08/13: Discussed with ID, recommending total 10 days of Acyclovir (to complete 08/18/17), continue 4 weeks of Rocephin and Rifampin to complete 6 week antibiotic therapy for septic arthritis/endocarditis. Ceftriaxone 2 gram IV Q24H started 08/08/17 to finish 08/29/17 for 6 weeks, Rifampin 300mg PO TID ( started 08/02/17 for 6 weeks total) 5) H/O mitral valve replacement (bioprosthetic valve) * Cardiology (Dr. Rowan) on the case, help appreciated; Dr. Rush covering this weekend * Will need to follow-up in regards anticoagulation such as aspirin in regards to bioprosthetic valvue * Per cardiology, do not start chemical anticoagulation given recurrent history of GI bleeding * Echocardiogram (08/02/17): No ASD seen. * Echocardiogram (07/22/17): limited study, vegetation on MV cannot be excluded. Rec. ASTRID to define MV/Calcified mitral ring? * Echocardiogram (07/01/17): systolic function is severely impaired. Anterior and septa; aldridge reveal dyskinesis with wall thinning. (indicative of prior transmural CA), inferior wall is severely hypokinestic, lateral wall is mod to severely hypokinetic, Left atrium is moderately dilated, right atrium is moderately dilated, mild concentric left ventricular hypertrophy, mild mitral valve stenosis, * Cardiac cath: severe multivessel coronary artery disease, severe left ventricular systolic dysfunction (2017) * Hx CABG * Prosthetic valve * NO ASTRID considering findings on MRI Brain 08/05/17 that showed chronic lacunar infarcts 6) Diabetes mellitus * Uryooehohah1f: 5.1 * Controlled * Accuchecks Q6H 7) Hypertension * Lopressor 50mg PO BID * Crestor 40mg POqHS * Cozaar 25mg PO daily 8) Hx Coronary artery disease/CABG * Lopressor 50mg PO BID * Crestor 2.5mg POqHS * Cozaar 25mg PO daily 9) Severe systolic congestive heart failure * Lopressor, Cozaar, Crestor * On last admission recommends for outpatient AICD by Dr Rowan * Dr. Vandana Rowan, Cardiology * Echocardiogram (08/02/17): No ASD seen. * Echocardiogram (07/22/17): limited study, vegetation on MV cannot be excluded. Rec. ASTRID to define MV/Calcified mitral ring? * Echocardiogram (07/01/17): systolic function is severely impaired. Anterior and septa; aldridge reveal dyskinesis with wall thinning. (indicative of prior transmural CA), inferior wall is severely hypokinestic, lateral wall is mod to severely hypokinetic, Left atrium is moderately dilated, right atrium is moderately dilated, mild concentric left ventricular hypertrophy, mild mitral valve stenosis, 10) Atelectasis * CT Chest (08/02/17): small right pleural effusion and right lower lobe subsegmental atelectasis. Opacity seen at right lung base on earlier chest radiograph of the same date was likely artifactual due to overlying medical equipment 11) Paroxysmal Atrial Fibrillation * Lopressor 5mg IVPQ6H * Lopressor 50mg PO BID * Per cardiology, hold chemical anticoagulation, patient has history of recurrent GI bleed * NO ASTRID considering findings on MRI Brain 08/05/17 that showed chronic lacunar infarcts 12) Fungal Rash (improved) * Inner groin folds and back side rash improving * Lotrimin 1% cream 13) UTI Yeast * 08/11/17: Started Diflucan (STOP DATE 08/17/17) to complete 7 days total of Diflucan * Repeat Urine Culture ordered for 08/15/17 14) Prophylactic measure * Resume Heparin 5000 units [id number] * Protonix 40mg IVP Q12H * Bacid 1 cap PO BID * Tylenol 650 mg Q6H PRN Fever * Duoneb Q6H PRN * PT/OT eval * Wound care * Aspiration precautions * Seizure precations Disposition: * Neurology has recommended and arranged for transfer of care to [facility], under Dr. Aneudy Molina, for continuous EEG monitoring since this is not available at this facility
[2017-08-14] MEDS: Fluconazole IV 200mg/100 ml NS 100 MG in Premixed IV 1 EA IVPB SCH (10:26)
[2017-08-14] MEDS: Lacosamide 200mg/20ml 100 MG in Sodium Chloride 0.9% 100 ML IV SCH (10:57)
[2017-08-14 11:14] LABS: ALB/GLOB RATIO 0.5 (1.0-2.1); ALBUMIN 2.4 g/dL (3.5-5.0); ALT/SGPT 11 U/L (9-52); AST/SGOT 34 U/L (14-36); BLOOD UREA NITROGEN 25 mg/dL (7-17); CALCIUM 8.8 mg/dl (8.6-10.4); GFR AFRICAN-AMERICAN > 60; GFR NON-AFRICAN AMERICAN 55
[2017-08-14] MEDS: Valproate 1,500 MG in Sodium Chloride 0.9% 100 ML IVPB SCH ×2 (11:19)
[2017-08-14 11:30] LABS: ARTERIAL BLOOD GAS HCO3 30.5 mmol/L (21-28); ARTERIAL BLOOD GAS HEMOGLOBIN 13.1 g/dL (11.7-17.4); ARTERIAL BLOOD GAS O2 SAT 98.5 % (95-98); ARTERIAL BLOOD GAS PCO2 45 mm/Hg (35-45); ARTERIAL BLOOD GAS PH 7.46 (7.35-7.45); ARTERIAL BLOOD GAS PO2 87 mm/Hg (80-100); ARTERIAL BLOOD GAS TCO2 33.4 mmol/L (22-28)
[2017-08-14] MEDS ORDERED: Potassium Chloride 20 mEq/15 ml LIQ UD PO ONE (11:48)
[2017-08-14] MEDS: cefTRIAXone 2 GM in Sodium Chloride 0.9% 100 ML IVPB SCH (16:31)
[2017-08-14 17:47] LABS: HTLV-I-II AB W/REFL CONF Nonreactive (Nonreactive)
[2017-08-15 00:38] LABS: W.EQUINE ENCEPH.VIRUS IGM <1:16
--- NOTE | 2017-08-15 15:30 | CP.PCM.DIS ---
<Maggie Ozuna - Last Filed: 08/15/17 15:25> Provider - Provider Date of Admission: 08/01/17 22:47 Attending physician: Miriam Agrawal DO Consults: Dr. Serenity Moreno Time Spent in preparation of Discharge (in minutes): 35 Diagnosis - Discharge Diagnosis (1) SIADH (syndrome of inappropriate ADH production) Status: Acute (2) Seizure Status: Acute (3) Septic arthritis of knee, left Status: Acute (4) CAD (coronary artery disease) Status: Chronic (5) Congestive heart failure Status: Chronic Priority: Medium (6) Hypertension Status: Chronic Hospital Course - Lab Results Lab Results: Micro Results 08/08/17 16:16 Cerebral Spinal Fluid Gram Stain - Final 08/08/17 16:16 Cerebral Spinal Fluid CSF Culture - Final No growth. 08/11/17 Unknown Naris MRSA Culture - Final MRSA NOT DETECTED 08/08/17 16:16 Other: Please Indicate Mycobacterial Culture - Preliminary 08/09/17 15:55 Urine,[place] Urine Culture - Final Yeast Species 08/08/17 16:16 Cerebral Spinal Fluid Fungal Culture - Preliminary 08/04/17 02:20 Blood-Thru Central Line Blood Culture - Final NO GROWTH AFTER 5 DAYS 08/04/17 02:20 Blood-Thru Central Line Gram Stain - Final TEST NOT PERFORMED 08/04/17 02:20 Blood-Thru Central Line Blood Culture - Final NO GROWTH AFTER 5 DAYS 08/04/17 02:20 Blood-Thru Central Line Gram Stain - Final TEST NOT PERFORMED 08/08/17 16:16 Cerebral Spinal Fluid Gram Stain - Final 08/05/17 Unknown Urine,[place] Urine Culture - Final Yeast Species 08/02/17 00:36 Nose MRSA Culture (Admit) - Final MRSA NOT DETECTED Most Recent Lab Values WBC 4.4 K/uL (4.8-10.8) L 08/14/17 06:57 RBC 3.06 Mil/uL (3.80-5.20) L 08/14/17 06:57 Hgb 9.0 g/dL (11.0-16.0) L 08/14/17 06:57 Hct 27.1 % (34.0-47.0) L 08/14/17 06:57 MCV 88.4 fL (81.0-99.0) 08/14/17 06:57 MCH 29.3 pg (27.0-31.0) 08/14/17 06:57 MCHC 33.2 g/dL (33.0-37.0) 08/14/17 06:57 RDW 17.6 % (11.5-14.5) H 08/14/17 06:57 Plt Count 251 K/uL (130-400) 08/14/17 06:57 MPV 8.6 fL (7.2-11.7) 08/14/17 06:57 Neut % (Auto) 61.7 % (50.0-75.0) 08/14/17 06:57 Lymph % (Auto) 28.5 % (20.0-40.0) 08/14/17 06:57 [place] % (Auto) 7.6 % (0.0-10.0) 08/14/17 06:57 Eos % (Auto) 1.8 % (0.0-4.0) 08/14/17 06:57 Baso % (Auto) 0.4 % (0.0-2.0) 08/14/17 06:57 Neut # (Auto) 2.7 K/uL (1.8-7.0) 08/14/17 06:57 Lymph # (Auto) 1.3 K/uL (1.0-4.3) 08/14/17 06:57 [place] # (Auto) 0.3 K/uL (0.0-0.8) 08/14/17 06:57 Eos # (Auto) 0.1 K/uL (0.0-0.7) 08/14/17 06:57 Baso # (Auto) 0.0 K/uL (0.0-0.2) 08/14/17 06:57 Neutrophils % (Manual) 92 % (50-75) H 08/12/17 06:34 Lymphocytes % (Manual) 7 % (20-40) L 08/12/17 06:34 Monocytes % (Manual) 1 % (0-10) 08/12/17 06:34 Platelet Estimate Normal (NORMAL) 08/12/17 06:34 Polychromasia Slight 08/12/17 06:34 Hypochromasia (manual) Slight 08/12/17 06:34 Anisocytosis (manual) Slight 08/12/17 06:34 Target Cells Slight 08/12/17 06:34 Ovalocytes Slight 08/12/17 06:34 ESR 70 mm/hr (0-20) H 08/04/17 06:21 PT 14.6 SECONDS (9.7-12.2) H 08/01/17 19:55 INR 1.3 08/01/17 19:55 APTT 47 SECONDS (21-34) H 08/01/17 19:55 Puncture Site Lb 08/14/17 11:20 pCO2 45 mm/Hg (35-45) 08/14/17 11:20 pO2 87 mm/Hg (80-100) 08/14/17 11:20 HCO3 30.5 mmol/L (21-28) H 08/14/17 11:20 ABG pH 7.46 (7.35-7.45) H 08/14/17 11:20 ABG Total CO2 33.4 mmol/L (22-28) H 08/14/17 11:20 ABG O2 Saturation 98.5 % (95-98) H 08/14/17 11:20 ABG Base Excess 7.2 mmol/L (-2.0-3.0) H 08/14/17 11:20 ABG Hemoglobin 13.1 g/dL (11.7-17.4) 08/14/17 11:20 ABG Carboxyhemoglobin 1.9 % (0.5-1.5) H 08/14/17 11:20 POC ABG HHb (Measured) 1.5 % (0.0-5.0) 08/14/17 11:20 ABG Methemoglobin 0.7 % (0.0-3.0) 08/14/17 11:20 Reji Test Na 08/14/17 11:20 ABG Potassium 4.7 mmol/L (3.6-5.2) 08/05/17 05:09 A-a O2 Difference 48.0 mm/Hg 08/03/17 10:09 Respiratory Index 0.4 08/03/17 10:09 Hgb O2 Saturation 95.8 % (95.0-98.0) 08/14/17 11:20 Sodium 132.0 mmol/l (132-148) 08/05/17 05:09 Chloride 99.0 mmol/L (98-107) 08/05/17 05:09 Glucose 89 mg/dl (65-105) 08/05/17 05:09 Lactate 0.9 mmol/L (0.7-2.1) 08/05/17 05:09 Liter Flow 3.0 08/14/17 11:20 Vent Mode Prvc 08/03/17 07:00 Mechanical Rate 12 08/03/17 07:00 FiO2 30.0 % 08/03/17 10:09 Tidal Volume 500 08/03/17 07:00 PEEP 5 08/03/17 07:00 Crit Value Called To Souleymane rn 08/02/17 05:14 Crit Value Called By Linnea fashion illustrator 08/02/17 05:14 Crit Value Read Back Y 08/02/17 05:14 Blood Gas Notified Time 530 08/02/17 05:14 Sodium 137 mmol/L (132-148) 08/14/17 10:51 Potassium 3.3 mmol/L (3.6-5.2) L 08/14/17 10:51 Chloride 96 mmol/L (98-107) L 08/14/17 10:51 Carbon Dioxide 36 mmol/L (22-30) H 08/14/17 10:51 Anion Gap 9 (10-20) L 08/14/17 10:51 BUN 25 mg/dL (7-17) H 08/14/17 10:51 Creatinine 1.0 mg/dL (0.7-1.2) 08/14/17 10:51 Est GFR ( Amer) > 60 08/14/17 10:51 Est GFR (Non-Af Amer) 55 08/14/17 10:51 POC Glucose (mg/dL) 163 mg/dL (65-110) H 08/14/17 11:34 Random Glucose 152 mg/dL (65-105) H 08/14/17 10:51 Hemoglobin A1c 5.1 % (4.2-6.5) 08/01/17 19:55 Calcium 8.8 mg/dl (8.6-10.4) 08/14/17 10:51 Phosphorus 3.6 mg/dL (2.5-4.5) 08/13/17 06:42 Magnesium 1.7 mg/dL (1.6-2.3) 08/13/17 06:42 Total Bilirubin 0.2 mg/dL (0.2-1.3) 08/14/17 10:51 Direct Bilirubin 0.2 mg/dL (0.0-0.4) 08/12/17 06:34 AST 34 U/L (14-36) 08/14/17 10:51 ALT 11 U/L (9-52) 08/14/17 10:51 Alkaline Phosphatase 73 U/L (38-126) 08/14/17 10:51 Ammonia 13 umol/L (9-33) D 08/12/17 06:34 Total Creatine Kinase 68 U/L (30-135) 08/05/17 06:13 Troponin I 0.0190 ng/mL (0.00-0.120) 08/01/17 19:55 C-React Prot High Sens > 15.00 mg/L (1.00-3.00) H 08/04/17 06:21 NT-Pro-B Natriuret Pep 45625 pg/mL (0-900) H 08/02/17 06:30 Total Protein 6.9 g/dL (6.3-8.3) 08/14/17 10:51 Albumin 2.4 g/dL (3.5-5.0) L 08/14/17 10:51 Globulin 4.5 gm/dL (2.2-3.9) H 08/14/17 10:51 Albumin/Globulin Ratio 0.5 (1.0-2.1) L 08/14/17 10:51 Triglycerides 116 mg/dL (0-149) D 08/02/17 06:30 Cholesterol 162 mg/dL (0-199) 08/02/17 06:30 LDL Cholesterol Direct 128 mg/dL (0-129) 08/02/17 06:30 HDL Cholesterol 23 mg/dL (30-70) L 08/02/17 06:30 Procalcitonin 0.12 NG/ML (0.19-0.49) L 08/05/17 16:40 TSH 3rd Generation 3.85 mIU/L (0.46-4.68) 08/05/17 06:13 Arterial Blood Potassium 4.7 mmol/L (3.6-5.2) 08/05/17 05:09 Urine Osmolality 503 mosm/kg (300-1000) 08/12/17 18:52 Ur Random Creatinine 41.5 mg/dL 08/12/17 18:52 Ur Random Sodium 129 mmol/L 08/12/17 18:52 Urine Chloride 93 mmol/L (32-290) 08/12/17 18:52 Fluid Type Spinal fluid 08/08/17 16:16 CSF Volume 4 mL (0-1) H 08/08/17 16:16 CSF Appearance Clear/colorless (CLEAR) 08/08/17 16:16 CSF WBC 0.0 /mm3 (0.0-5.0) 08/08/17 16:16 CSF RBC 2.0 /mm3 (0.0-0.0) H 08/08/17 16:16 CSF Total Cell Counted TEST NOT PERFORMED 08/08/17 16:16 CSF Monos/Macrophages TEST NOT PERFORMED 08/08/17 16:16 CSF Comment TEST NOT PERFORMED 08/08/17 16:16 CSF Glucose 69 mg/dL (40-70) 08/08/17 16:16 CSF Total Protein 44.0 mg/dL (12-60) 08/08/17 16:16 CSF VDRL Nonreactive (Nonreactive) 08/08/17 16:16 CSF Lyme IgG Antibody No bands detected 08/08/17 16:16 CSF Lyme Disease DNA Not detected 08/08/17 16:16 CSF Cryptococcus Ag Negative (NEGATIVE) 08/08/17 16:16 CSF West Nile IgG Ab 0.67 08/08/17 16:16 CSF West Nile IgM Ab 0.00 08/08/17 16:16 Gentamicin Trough 1.2 ug/mL (0.0-0.9) H 08/07/17 01:51 Random Gentamicin 0.8 ug/mL 08/07/17 12:49 Vancomycin Trough 17.6 ug/mL (5.0-10.0) H 08/05/17 16:40 Urine Opiates Screen Positive (NEGATIVE) H 08/01/17 21:18 Urine Methadone Screen Negative (NEGATIVE) 08/01/17 21:18 Ur Barbiturates Screen Negative (NEGATIVE) 08/01/17 21:18 Phenytoin < 3.0 ug/mL (10-20) L 08/03/17 06:22 Valproic Acid 15.8 ug/mL (50.0-100.0) L 08/14/17 06:57 Ur Phencyclidine Scrn Negative (NEGATIVE) 08/01/17 21:18 Ur Amphetamines Screen Negative (NEGATIVE) 08/01/17 21:18 U Benzodiazepines Scrn Negative (NEGATIVE) 08/01/17 21:18 U Oth Cocaine Metabols Negative (NEGATIVE) 08/01/17 21:18 U Cannabinoids Screen Negative (NEGATIVE) 08/01/17 21:18 IgG 2254.4 mg/dL (700.0-1600.0) H 08/14/17 06:57 IgA 1061.5 mg/dL (70.0-400.0) H 08/14/17 06:57 IgM 353.7 mg/dL (40.0-230.0) H 08/14/17 06:57 IgE 133 kU/L (<fq=502) H 08/14/17 07:25 Absolute Lymphs (Flow) 1048 Cells/mcL (850-3900) 08/11/17 07:59 % CD4 Cells 28 Percent (30-61) L 08/11/17 07:59 Absolute CD4 Count 294 Cells/mcL (490-1740) L 08/11/17 07:59 T-Help/Suppress Ratio 0.45 Ratio (0.86-5.00) L 08/11/17 07:59 % CD8 Cells 62 Percent (12-42) H 08/11/17 07:59 Absolute CD8 Count 649 Cells/mcL (180-1170) 08/11/17 07:59 Lyme Specimen Source Csf 08/08/17 16:16 [place] En[place]ph IgG <1:16 08/11/17 07:59 [place] Enceph IgM <1:16 08/11/17 07:59 E Equine Enceph Interp See note 08/11/17 07:59 [place] Enceph IgG <1:16 08/11/17 07:59 [place] Enceph IgM <1:16 08/11/17 07:59 W Equ[place] Enceph Interp See note 08/11/17 07:59 [place] Encephalitis IgG <1:16 08/11/17 07:59 Calif Encephalitis IgM <1:16 08/11/17 07:59 Calif Encephal Interp See note 08/11/17 07:59 Anti-NMDA Rec Method See note 08/08/17 16:16 Anti-NMDA Technical Res See note 08/08/17 16:16 Anti-NMDA Rec Interp See note 08/08/17 16:16 Anti-NMDA Rec Comment See note 08/08/17 16:16 Anti-NMDA Rec Reference See note 08/08/17 16:16 HSV Source Description Csf 08/09/17 14:40 HSV Culture Source Source not given 08/08/17 16:16 HSV Rapid Culture Not isolated (Not Isolated) 08/08/17 16:16 HSV I DNA PCR Not detected (Not Detected) 08/09/17 14:40 HSV II DNA PCR Not detected (Not Detected) 08/09/17 14:40 HIV 1&2 Ag/Ab, 4th Gen Nonreactive (Nonreactive) 08/11/17 07:59 HTLV I/II Antibody Nonreactive (Nonreactive) 08/11/17 07:59 HTLV I/II Ab (MAYRA) TEST NOT PERFORMED 08/11/17 07:59 HTLV I/II P19-I TEST NOT PERFORMED 08/11/17 07:59 HTLV I/II P19-I/II TEST NOT PERFORMED 08/11/17 07:59 HTLV I/II P24 TEST NOT PERFORMED 08/11/17 07:59 HTLV I/II gp 21 TEST NOT PERFORMED 08/11/17 07:59 HTLV I/II gp 46 TEST NOT PERFORMED 08/11/17 07:59 HTLV I/II gp 46-I TEST NOT PERFORMED 08/11/17 07:59 HTLV I/II gp 46-II TEST NOT PERFORMED 08/11/17 07:59 HTLV Streptavidin Ctrl TEST NOT PERFORMED 08/11/17 07:59 Influenza Typ A,B (EIA) Negative for flu a/b (NEGATIVE) 08/02/17 08:55 H.influenzae Type B Ag Negative (NEGATIVE) 08/08/17 16:16 N.meningitidis ACY/W135 Negative (NEGATIVE) 08/08/17 16:16 N.meningi B/E.coli K1 Ag Negative (NEGATIVE) 08/08/17 16:16 Group B Strep Antigen Negative (NEGATIVE) 08/08/17 16:16 S. pneumoniae Antigen Negative (NEGATIVE) 08/08/17 16:16 Blood Type A POSITIVE 08/02/17 00:46 Antibody Screen Positive 08/02/17 00:46 Antibody Identification Anti E 08/02/17 00:46 - Hospital Course Hospital Course: Upon admission: 72 F with h/o ischemic cardiomyopthy low ef, dm, siadh, mssa left knee septic arthritis, s/p drainage, htn, RA, not on anticoagulation was in rehab, had 3 seizure episodes, and received ativan at the rehab. In ER patient was completely unresponsive, CT brain didn't show any acute changes, patient was intubated in ER for airway protection. Patient in short time started to respond appropriately and later in ICU need some sedation. Hyponatremia 123 noticed in with hypokalemia, and hypomagnesimia, patient had leg edema with skin wrinkles suggesting prior increased edema. Patient was on genta, cefazolin and refampin for MSSA septic arthritis. Hospital Course: Patient had an extensive hospital course in the ICU and medical floor so a brief summary of events is detailed below. For more details please see complete medical record. New onset seizure * 08/01: Code Stroke with GCS 4; Via ALS from [facility], experiencing seizure-like activity witnessed by ALS; given Ativan 2mg on route, NIHSS: 29 ( noted for dysarthria and profound neglect does not recognize own hand or oreitns to one side. ED attempted to reverse with Flumazenil given patient appeared comatose. Intubated in the ED for airway protection with etomidate. Sent to ICU. Now out of ICU. * Factors for seizure activity: * Precipitating factors: hyponatremia, hypokalemia, hypomagnesemia - all corrected and patient continues to have seizure activity * Antibiotic side effect: gentamicin (seizure, confusion, lethargy per uptodate ) - discontinued; rifampin (fatigue, drowsiness, confusion); Cefazolin (seizure ) - discontinued * pain medication: tramadol - discontinued * Imaging: * CT head (08/01/17): nonspecific white matter changes. Acute infarction may be CT occult within first 24 hours. If a focal deficit persists, consider for further evaulation. Atherosclerotic disease of intracranial arteries. probable chronic lacunar infarcts within basal ganglia. * CT Head and neck (08/01/17): no flow limiting cervical cartoid artery stenosis or vessel occlusion. Patent vertebral arteries * CT Head (08/02/17): no evidence of acute infarct. Chronic microvascular white matter ischemic change. otherwise unremarkable. * MRI Brain (08/05/17): NO acute intracranial hemorrhage. Moderate chronic white matter changes with scattered small basal nuclei, brain stem, and left cerebellar lacunar infarcts * MRI Neck (08/05/17): NO evidence of any significant stenosis of the carotid arteries * MRI Brain (08/05/17): Right distal Posterior Cerebral Artery can't be visualized but this may be artifactual vs occlusion can't be excluded. * MRI Brain with and without contrast (08/09/17): No evidence of abnormal signal , edema, or enhancement in the cerebral cortex to suggest encephalitis and active infectious process. NO evidence of abnormal leptomeningeal enhancement * Neurology (Dr. Cornejo/Josh) on board, help appreciated * needs continuous EEG monitoring - waiting for transfer * Lumbar Tap 08/08/17 by ICU Team and the following studies done: * WBC: 0 * RBC: 2 * Total cell counted: not performed * Monos/macrophages: not performed * glucose: 69 * Total protein: 44 * Negative: Gram Stain, Cryptococcal Ag, VDRL, HSV 1 PCR, HSV 2 PCR, HSV Culture, Bacterial Culture, Lyme DNA and IgG, AFB Smear and Culture, Fungal Smear and Culture, CSF Gram Stain, CSF Fungal Culture preliminary, CSF Mycobacterium Culture, WNV IgG 67 and IgM 0, Anti-NMDAR Antibodies * f/u enterovirus and arbovirus * PICC line (had been placed 07/24/17). * Monitor electrolytes Meds: * 08/08/17-current: Ceftriaxone 2 gram IV Q24H * 08/03-current: Vimpat 100 mg IVP Q12H * 08/08/17: Acyclovir 600 mg IV Q8H added - continue 10 days total (08/17/17) * 08/10/17: Keppra increased to 1,500 mg IV Q12H * 08/11/17: Valproic Acid increased to 1,500 mg IV Q12H and level 19.3 (L) on * 08/08-08/12: Dexamethasone 10 mg IV x 1 dose followed by 6 mg IV Q6H RUE Edema * 08/13: RUE venous duplex negative for thrombus Hypokalemia/Hypomagnesemia * WNL at this time * Replete as needed Hyponatremia/SIADH - resolved, stable * Nephrology (Dr. Eddy) on the case, help appreciated * 08/12: urine osmolality 503, urine Cr 41.5, and urine Na 129 * Patient has received Tolvaptan 30 mg PO 1x/day on 08/03/17/, 08/04/17, 08/05/17, 08/06/17. However patient is also on Rifampin (as part of treatment for Left Knee Septic Arthritis) and this may interfere with the Tolvaptan. * Aldactone 25 mg PO Q12H is on HOLD Septic arthritis * Infectious Disease (Dr. Jannie Avina) on the case, help appreciated * Last admission: Patient was discharged on Ancef, Rifampin, and gentamicin. MICS available (07/26/17) and came back on 08/01/17. * Rocephin 2 g Q24H (started 08/08) * Rifampin 300mg PO TID (08/02/17-08/29/17) * Stopped Vancomycin 750mg IVPB Q12H (started 08/03/17) - OK'd by Dr. Avina * Completed Gentamicin Sulfate 70mg IVPB Q24H (active 08/04/17) X 5 bags with last dose on 08/08/17 * Orthopedics LONA Portillo Stock removed sutures 08/07/17 H/O mitral valve replacement (bioprosthetic valve) * Cardiology (Dr. Rowan) on the case, help appreciated; Dr. Rush covering this weekend * Will need to follow-up in regards anticoagulation such as aspirin in regards to bioprosthetic valvue * Per cardiology, do not start chemical anticoagulation given recurrent history of GI bleeding * Echocardiogram (08/02/17): No ASD seen. * Echocardiogram (07/22/17): limited study, vegetation on MV cannot be excluded. Rec. ASTRID to define MV/Calcified mitral ring? * Echocardiogram (07/01/17): systolic function is severely impaired. Anterior and septa; aldridge reveal dyskinesis with wall thinning. (indicative of prior transmural [place]), inferior wall is severely hypokinestic, lateral wall is mod to severely hypokinetic, Left atrium is moderately dilated, right atrium is moderately dilated, mild concentric left ventricular hypertrophy, mild mitral valve stenosis, * Cardiac cath: severe multivessel coronary artery disease, severe left ventricular systolic dysfunction (2017) * Hx CABG * Prosthetic valve * NO ASTRID considering findings on MRI Brain 08/05/17 that showed chronic lacunar infarcts Diabetes mellitus * [id number]: 5.1 * Controlled * Accuchecks Q6H Hypertension * Lopressor 50mg PO BID * Crestor 2.5mg POqHS * Cozaar 25mg PO daily Hx Coronary artery disease/CABG * Lopressor 50mg PO BID * Crestor 2.5mg POqHS * Cozaar 25mg PO daily Severe systolic congestive heart failure * Lopressor, Cozaar * On last admission recommends for outpatient AICD by Dr Rowan Atelectasis * CT Chest (08/02/17): small right pleural effusion and right lower lobe subsegmental atelectasis. Opacity seen at right lung base on earlier chest radiograph of the same date was likely artifactual due to overlying medical equipment Paroxysmal Atrial Fibrillation * Lopressor 5mg IVPQ6H * Lopressor 50mg PO BID * Per cardiology, hold chemical anticoagulation, patient has history of recurrent GI bleed, awaiting brain MRI, may or may not need ASTRID Fungal Rash * Inner groin folds and back side rash improving * Lotrimin 1% cream UTI Yeast * 08/11/17: Started Diflucan (STOP DATE 08/17/17) * Repeat Urine Culture ordered for 08/15/17 Prophylactic measure * Heparin 5000 units [id number] was placed on HOLD for Lumbar Tap * Protonix 40mg IVP Q12H * Bacid 1 cap PO BID * Tylenol 650 mg Q6H PRN Fever * Duoneb Q6H PRN * PT/OT eval * Wound care Patient was transferred to [facility] under accepting physician, Dr. Aneudy Guadarrama, for continuous EEG monitoring, as recommended by Dr. Cornejo. Discharge Exam - Head Exam Head Exam: NORMAL INSPECTION - Additional Findings Additional findings: - Constitutional Appears: No Acute Distress, Chronically Ill - Head Exam Head Exam: ATRAUMATIC, NORMAL INSPECTION, NORMOCEPHALIC - Eye Exam Eye Exam: Normal appearance, PERRL Additional comments: opens eye spontaneously but does not follow commands to follow my finger - ENT Exam ENT Exam: Mucous Membranes Moist - Respiratory Exam Respiratory Exam: Clear to Ausculation Bilateral, NORMAL BREATHING PATTERN. absent: Accessory Muscle Use, Rales, Rhonchi, Wheezes, Respiratory Distress Additional comments: Birthmark noted on right chest wall - Cardiovascular Exam Cardiovascular Exam: RRR, +S1, +S2 - GI/Abdominal Exam GI & Abdominal Exam: Soft, Normal Bowel Sounds. absent: Distended, Tenderness - Exam Additional comments: [place] in place - Extremities Exam Extremities Exam: Joint Swelling (left knee), Edema of right upper extremity. absent: Calf Tenderness, Pedal Edema - Neurological Exam Neurological Exam: Awake Neuro motor strength exam: Left Upper Extremity: 3, Right Upper Extremity: 2/1 ( random muscle contractions ), Left Lower Extremity: 2/1, Right Lower Extremity: 2/1 Additional comments: spontaneously raises left arm but there is drift towards the bed after 3 seconds positive startle response unprovoked facial twitching (eyebrow raising) and right arm twitching dose not follow commands opens eyes spontaneously grimace to painful stimuli - Skin Skin Exam: Dry, Intact, Warm, Rash (in groin area, improving) Discharge Plan - Discharge Medications Prescriptions: RX: Rosuvastatin Calcium [Crestor] 40 mg PO HS #30 tab - Follow Up Plan Condition: SERIOUS Disposition: Trans to Other Acute Care Hosp Additional Instructions: Discharge to [facility] under accepting physician, Dr. Aneudy Guadarrama, when bed is available <Miriam Agrawal V - Last Filed: 08/16/17 00:11> Provider - Provider Date of Admission: 08/01/17 22:47 Attending physician: Miriam Agrawal DO Diagnosis - Discharge Diagnosis (1) New onset seizure Status: Acute (2) Hypokalemia Status: Acute (3) Hyponatremia Status: Resolved (4) SIADH (syndrome of inappropriate ADH production) Status: Acute (5) Septic arthritis Status: Chronic (6) H/O mitral valve replacement Status: Chronic (7) Diabetes mellitus Status: Chronic (8) Hypertension Status: Chronic (9) Coronary artery disease Status: Chronic (10) Severe systolic congestive heart failure Status: Chronic (11) Atelectasis Status: Acute (12) PAF (paroxysmal atrial fibrillation) Status: Acute (13) Prophylactic measure Status: Acute Hospital Course - Lab Results Lab Results: Micro Results 08/08/17 16:16 Cerebral Spinal Fluid Gram Stain - Final 08/08/17 16:16 Cerebral Spinal Fluid CSF Culture - Final No growth. 08/11/17 Unknown Naris MRSA Culture - Final MRSA NOT DETECTED 08/08/17 16:16 Other: Please Indicate Mycobacterial Culture - Preliminary 08/09/17 15:55 Urine,[place] Urine Culture - Final Yeast Species 08/08/17 16:16 Cerebral Spinal Fluid Fungal Culture - Preliminary 08/04/17 02:20 Blood-Thru Central Line Blood Culture - Final NO GROWTH AFTER 5 DAYS 08/04/17 02:20 Blood-Thru Central Line Gram Stain - Final TEST NOT PERFORMED 08/04/17 02:20 Blood-Thru Central Line Blood Culture - Final NO GROWTH AFTER 5 DAYS 08/04/17 02:20 Blood-Thru Central Line Gram Stain - Final TEST NOT PERFORMED 08/08/17 16:16 Cerebral Spinal Fluid Gram Stain - Final 08/05/17 Unknown Urine,[place] Urine Culture - Final Yeast Species 08/02/17 00:36 Nose MRSA Culture (Admit) - Final MRSA NOT DETECTED Most Recent Lab Values WBC 4.4 K/uL (4.8-10.8) L 08/14/17 06:57 RBC 3.06 Mil/uL (3.80-5.20) L 08/14/17 06:57 Hgb 9.0 g/dL (11.0-16.0) L 08/14/17 06:57 Hct 27.1 % (34.0-47.0) L 08/14/17 06:57 MCV 88.4 fL (81.0-99.0) 08/14/17 06:57 MCH 29.3 pg (27.0-31.0) 08/14/17 06:57 MCHC 33.2 g/dL (33.0-37.0) 08/14/17 06:57 RDW 17.6 % (11.5-14.5) H 08/14/17 06:57 Plt Count 251 K/uL (130-400) 08/14/17 06:57 MPV 8.6 fL (7.2-11.7) 08/14/17 06:57 Neut % (Auto) 61.7 % (50.0-75.0) 08/14/17 06:57 Lymph % (Auto) 28.5 % (20.0-40.0) 08/14/17 06:57 Borden % (Auto) 7.6 % (0.0-10.0) 08/14/17 06:57 Eos % (Auto) 1.8 % (0.0-4.0) 08/14/17 06:57 Baso % (Auto) 0.4 % (0.0-2.0) 08/14/17 06:57 Neut # (Auto) 2.7 K/uL (1.8-7.0) 08/14/17 06:57 Lymph # (Auto) 1.3 K/uL (1.0-4.3) 08/14/17 06:57 Borden # (Auto) 0.3 K/uL (0.0-0.8) 08/14/17 06:57 Eos # (Auto) 0.1 K/uL (0.0-0.7) 08/14/17 06:57 Baso # (Auto) 0.0 K/uL (0.0-0.2) 08/14/17 06:57 Neutrophils % (Manual) 92 % (50-75) H 08/12/17 06:34 Lymphocytes % (Manual) 7 % (20-40) L 08/12/17 06:34 Monocytes % (Manual) 1 % (0-10) 08/12/17 06:34 Platelet Estimate Normal (NORMAL) 08/12/17 06:34 Polychromasia Slight 08/12/17 06:34 Hypochromasia (manual) Slight 08/12/17 06:34 Anisocytosis (manual) Slight 08/12/17 06:34 Target Cells Slight 08/12/17 06:34 Ovalocytes Slight 08/12/17 06:34 ESR 70 mm/hr (0-20) H 08/04/17 06:21 PT 14.6 SECONDS (9.7-12.2) H 08/01/17 19:55 INR 1.3 08/01/17 19:55 APTT 47 SECONDS (21-34) H 08/01/17 19:55 Puncture Site Lb 08/14/17 11:20 pCO2 45 mm/Hg (35-45) 08/14/17 11:20 pO2 87 mm/Hg (80-100) 08/14/17 11:20 HCO3 30.5 mmol/L (21-28) H 08/14/17 11:20 ABG pH 7.46 (7.35-7.45) H 08/14/17 11:20 ABG Total CO2 33.4 mmol/L (22-28) H 08/14/17 11:20 ABG O2 Saturation 98.5 % (95-98) H 08/14/17 11:20 ABG Base Excess 7.2 mmol/L (-2.0-3.0) H 08/14/17 11:20 ABG Hemoglobin 13.1 g/dL (11.7-17.4) 08/14/17 11:20 ABG Carboxyhemoglobin 1.9 % (0.5-1.5) H 08/14/17 11:20 POC ABG HHb (Measured) 1.5 % (0.0-5.0) 08/14/17 11:20 ABG Methemoglobin 0.7 % (0.0-3.0) 08/14/17 11:20 Reji Test Na 08/14/17 11:20 ABG Potassium 4.7 mmol/L (3.6-5.2) 08/05/17 05:09 A-a O2 Difference 48.0 mm/Hg 08/03/17 10:09 Respiratory Index 0.4 08/03/17 10:09 Hgb O2 Saturation 95.8 % (95.0-98.0) 08/14/17 11:20 Sodium 132.0 mmol/l (132-148) 08/05/17 05:09 Chloride 99.0 mmol/L (98-107) 08/05/17 05:09 Glucose 89 mg/dl (65-105) 08/05/17 05:09 Lactate 0.9 mmol/L (0.7-2.1) 08/05/17 05:09 Liter Flow 3.0 08/14/17 11:20 Vent Mode Prvc 08/03/17 07:00 Mechanical Rate 12 08/03/17 07:00 FiO2 30.0 % 08/03/17 10:09 Tidal Volume 500 08/03/17 07:00 PEEP 5 08/03/17 07:00 Crit Value Called To Souleymane rn 08/02/17 05:14 Crit Value Called By Linnea fashion illustrator 08/02/17 05:14 Crit Value Read Back Y 08/02/17 05:14 Blood Gas Notified Time 530 08/02/17 05:14 Sodium 137 mmol/L (132-148) 08/14/17 10:51 Potassium 3.3 mmol/L (3.6-5.2) L 08/14/17 10:51 Chloride 96 mmol/L (98-107) L 08/14/17 10:51 Carbon Dioxide 36 mmol/L (22-30) H 08/14/17 10:51 Anion Gap 9 (10-20) L 08/14/17 10:51 BUN 25 mg/dL (7-17) H 08/14/17 10:51 Creatinine 1.0 mg/dL (0.7-1.2) 08/14/17 10:51 Est GFR ( Amer) > 60 08/14/17 10:51 Est GFR (Non-Af Amer) 55 08/14/17 10:51 POC Glucose (mg/dL) 163 mg/dL (65-110) H 08/14/17 11:34 Random Glucose 152 mg/dL (65-105) H 08/14/17 10:51 Hemoglobin A1c 5.1 % (4.2-6.5) 08/01/17 19:55 Calcium 8.8 mg/dl (8.6-10.4) 08/14/17 10:51 Phosphorus 3.6 mg/dL (2.5-4.5) 08/13/17 06:42 Magnesium 1.7 mg/dL (1.6-2.3) 08/13/17 06:42 Total Bilirubin 0.2 mg/dL (0.2-1.3) 08/14/17 10:51 Direct Bilirubin 0.2 mg/dL (0.0-0.4) 08/12/17 06:34 AST 34 U/L (14-36) 08/14/17 10:51 ALT 11 U/L (9-52) 08/14/17 10:51 Alkaline Phosphatase 73 U/L (38-126) 08/14/17 10:51 Ammonia 13 umol/L (9-33) D 08/12/17 06:34 Total Creatine Kinase 68 U/L (30-135) 08/05/17 06:13 Troponin I 0.0190 ng/mL (0.00-0.120) 08/01/17 19:55 C-React Prot High Sens > 15.00 mg/L (1.00-3.00) H 08/04/17 06:21 NT-Pro-B Natriuret Pep 97135 pg/mL (0-900) H 08/02/17 06:30 Total Protein 6.9 g/dL (6.3-8.3) 08/14/17 10:51 Albumin 2.4 g/dL (3.5-5.0) L 08/14/17 10:51 Globulin 4.5 gm/dL (2.2-3.9) H 08/14/17 10:51 Albumin/Globulin Ratio 0.5 (1.0-2.1) L 08/14/17 10:51 Triglycerides 116 mg/dL (0-149) D 08/02/17 06:30 Cholesterol 162 mg/dL (0-199) 08/02/17 06:30 LDL Cholesterol Direct 128 mg/dL (0-129) 08/02/17 06:30 HDL Cholesterol 23 mg/dL (30-70) L 08/02/17 06:30 Procalcitonin 0.12 NG/ML (0.19-0.49) L 08/05/17 16:40 TSH 3rd Generation 3.85 mIU/L (0.46-4.68) 08/05/17 06:13 Arterial Blood Potassium 4.7 mmol/L (3.6-5.2) 08/05/17 05:09 Urine Osmolality 503 mosm/kg (300-1000) 08/12/17 18:52 Ur Random Creatinine 41.5 mg/dL 08/12/17 18:52 Ur Random Sodium 129 mmol/L 08/12/17 18:52 Urine Chloride 93 mmol/L (32-290) 08/12/17 18:52 Fluid Type Spinal fluid 08/08/17 16:16 CSF Volume 4 mL (0-1) H 08/08/17 16:16 CSF Appearance Clear/colorless (CLEAR) 08/08/17 16:16 CSF WBC 0.0 /mm3 (0.0-5.0) 08/08/17 16:16 CSF RBC 2.0 /mm3 (0.0-0.0) H 08/08/17 16:16 CSF Total Cell Counted TEST NOT PERFORMED 08/08/17 16:16 CSF Monos/Macrophages TEST NOT PERFORMED 08/08/17 16:16 CSF Comment TEST NOT PERFORMED 08/08/17 16:16 CSF Glucose 69 mg/dL (40-70) 08/08/17 16:16 CSF Total Protein 44.0 mg/dL (12-60) 08/08/17 16:16 CSF VDRL Nonreactive (Nonreactive) 08/08/17 16:16 CSF Lyme IgG Antibody No bands detected 08/08/17 16:16 CSF Lyme Disease DNA Not detected 08/08/17 16:16 CSF Cryptococcus Ag Negative (NEGATIVE) 08/08/17 16:16 CSF West Nile IgG Ab 0.67 08/08/17 16:16 CSF West Nile IgM Ab 0.00 08/08/17 16:16 Gentamicin Trough 1.2 ug/mL (0.0-0.9) H 08/07/17 01:51 Random Gentamicin 0.8 ug/mL 08/07/17 12:49 Vancomycin Trough 17.6 ug/mL (5.0-10.0) H 08/05/17 16:40 Urine Opiates Screen Positive (NEGATIVE) H 08/01/17 21:18 Urine Methadone Screen Negative (NEGATIVE) 08/01/17 21:18 Ur Barbiturates Screen Negative (NEGATIVE) 08/01/17 21:18 Phenytoin < 3.0 ug/mL (10-20) L 08/03/17 06:22 Valproic Acid 15.8 ug/mL (50.0-100.0) L 08/14/17 06:57 Ur Phencyclidine Scrn Negative (NEGATIVE) 08/01/17 21:18 Ur Amphetamines Screen Negative (NEGATIVE) 08/01/17 21:18 U Benzodiazepines Scrn Negative (NEGATIVE) 08/01/17 21:18 U Oth Cocaine Metabols Negative (NEGATIVE) 08/01/17 21:18 U Cannabinoids Screen Negative (NEGATIVE) 08/01/17 21:18 IgG 2254.4 mg/dL (700.0-1600.0) H 08/14/17 06:57 IgA 1061.5 mg/dL (70.0-400.0) H 08/14/17 06:57 IgM 353.7 mg/dL (40.0-230.0) H 08/14/17 06:57 IgE 133 kU/L (<nz=851) H 08/14/17 07:25 Absolute Lymphs (Flow) 1048 Cells/mcL (850-3900) 08/11/17 07:59 % CD4 Cells 28 Percent (30-61) L 08/11/17 07:59 Absolute CD4 Count 294 Cells/mcL (490-1740) L 08/11/17 07:59 T-Help/Suppress Ratio 0.45 Ratio (0.86-5.00) L 08/11/17 07:59 % CD8 Cells 62 Percent (12-42) H 08/11/17 07:59 Absolute CD8 Count 649 Cells/mcL (180-1170) 08/11/17 07:59 Lyme Specimen Source Csf 08/08/17 16:16 [place] Equ[place] Enceph IgG <1:16 08/11/17 07:59 [place] Equ[place] Enceph IgM <1:16 08/11/17 07:59 E Equine Enceph Interp See note 08/11/17 07:59 [place] Equ[place] Enceph IgG <1:16 08/11/17 07:59 [place] Equ[place] Enceph IgM <1:16 08/11/17 07:59 W Equine Enceph Interp See note 08/11/17 07:59 [place] Encephalitis IgG <1:16 08/11/17 07:59 Calif Encephalitis IgM <1:16 08/11/17 07:59 Calif Encephal Interp See note 08/11/17 07:59 Anti-NMDA Rec Method See note 08/08/17 16:16 Anti-NMDA Technical Res See note 08/08/17 16:16 Anti-NMDA Rec Interp See note 08/08/17 16:16 Anti-NMDA Rec Comment See note 08/08/17 16:16 Anti-NMDA Rec Reference See note 08/08/17 16:16 HSV Source Description Csf 08/09/17 14:40 HSV Culture Source Source not given 08/08/17 16:16 HSV Rapid Culture Not isolated (Not Isolated) 08/08/17 16:16 HSV I DNA PCR Not detected (Not Detected) 08/09/17 14:40 HSV II DNA PCR Not detected (Not Detected) 08/09/17 14:40 HIV 1&2 Ag/Ab, 4th Gen Nonreactive (Nonreactive) 08/11/17 07:59 HTLV I/II Antibody Nonreactive (Nonreactive) 08/11/17 07:59 HTLV I/II Ab (MAYRA) TEST NOT PERFORMED 08/11/17 07:59 HTLV I/II P19-I TEST NOT PERFORMED 08/11/17 07:59 HTLV I/II P19-I/II TEST NOT PERFORMED 08/11/17 07:59 HTLV I/II P24 TEST NOT PERFORMED 08/11/17 07:59 HTLV I/II gp 21 TEST NOT PERFORMED 08/11/17 07:59 HTLV I/II gp 46 TEST NOT PERFORMED 08/11/17 07:59 HTLV I/II gp 46-I TEST NOT PERFORMED 08/11/17 07:59 HTLV I/II gp 46-II TEST NOT PERFORMED 08/11/17 07:59 HTLV Streptavidin Ctrl TEST NOT PERFORMED 08/11/17 07:59 Influenza Typ A,B (EIA) Negative for flu a/b (NEGATIVE) 08/02/17 08:55 H.influenzae Type B Ag Negative (NEGATIVE) 08/08/17 16:16 N.meningitidis ACY/W135 Negative (NEGATIVE) 08/08/17 16:16 N.meningi B/E.coli K1 Ag Negative (NEGATIVE) 08/08/17 16:16 Group B Strep Antigen Negative (NEGATIVE) 08/08/17 16:16 S. pneumoniae Antigen Negative (NEGATIVE) 08/08/17 16:16 Blood Type A POSITIVE 08/02/17 00:46 Antibody Screen Positive 08/02/17 00:46 Antibody Identification Anti E 08/02/17 00:46 Attending/Attestation - Attestation I have personally seen and examined this patient.: Yes I have fully participated in the care of the patient.: Yes I have reviewed all pertinent clinical information, including history, physical exam and plan: Yes Notes (Text): Patient underwent extensive hospitalization wherein while she was at [facility] had witnessed seizures which were new onset. Resident has noted summary of patient's hospitalization in her note. [facility] monitoring since it is not available at this facility since it appears patient is having seizures by her involuntary eye twitching. I have spoken with Dr Salamanca from [facility] today in regards to the patient since he did not receive patient workup in regards to patient's hospitalization. We have sent him our latest progress note with the workup noted to fax number at [facility] as well as I have spoken with our scanning clerk this morning to have the record faxed over to [facility] this morning. I have also provided contact number for our neurologist if he had further questions. Aslo, per ABX instructions, Discussed with ID, recommending total 10 days of Acyclovir (to complete on ), continue 4 weeks of Rocephin and Rifampin to complete 6 week antibiotic therapy for septic arthritis/endocarditis. Ceftriaxone 2 gram IV Q24H started to finish 08/29/17 for 6 weeks and Rifampin 300mg PO TID (started on for 6 weeks total) Discharge Diagnoses: 1) New onset seizure PLEDs Encephalitis * 08/01: per review of ED triage note: Via ALS from [facility], prior notification of resident experiencing ''jerky movements few secs for a total of 3 episodes''; seizure-like activity witnessed by ALS, treated with ATIVAN 2MG IV GIVEN VIA PICC LINE TO RT ARM PER REPORT GIVEN; on NRB 100%, FPL=401wf/d * 08/01: Per review of ED note: In ambulance, given Ativan 2mg on route, NIHSS: 29 (noted for dysarthria and profound neglect does not recognize own hand or oreitns to one side. ED attempted to reverse with Flumazenil given patient appeared comatose. Intubated in the ED for airway protection with etomidate * 08/01: Code stroke GCS: 4 * Factors for seizure activity: * Precipitating factors: hyponatremia, hypokalemia, hypomagnesium * Antibiotic side effect: gentamicin (seizure, confusion, lethargy per uptodate ), rifampin (fatigue, drowsiness, confusion), Cefazolin (seizure) * pain medication: tramadol * Imaging: * CT head (08/01/17): nonspecific white matter changes. Acute infarction may be CT occult within first 24 hours. If a focal deficit persists, consider for further evaulation. Atherosclerotic disease of intracranial arteries. probable chronic lacunar infarcts within basal ganglia. * CT Head and neck (08/01/17): no flow limiting cervical cartoid artery stenosis or vessel occlusion. Patent vertebral arteries * CT Head (08/02/17): no evidence of acute infarct. Chronic microvascular white matter ischemic change. otherwise unremarkable. * MRI Brain (08/05/17): NO acute intracranial hemorrhage. Moderate chronic white matter changes with scattered small basal nuclei, brain stem, and left cerebellar lacunar infarcts * MRI Neck (08/05/17): NO evidence of any significant stenosis of the carotid arteries * MRI Brain (08/05/17): Right distal Posterior Cerebral Artery can't be visualized but this may be artifactual vs occlusion can't be excluded. * MRI Brain with and without contrast (08/09/17): No evidence of abnormal signal , edema, or enhancement in the cerebral cortex to suggest encephalitis and active infectious process. NO evidence of abnormal leptomeningeal enhancement * Neurology (Dr. Cornejo/Josh) on board, help appreciated * Dr. Moreno note (08/10): EEG: report dictated: --initial eeg showed brief 2 second seizure in left temporal lobe with triphasics; repeat eeg on saturday (08/09 ) showed: PLEDS in the left temporal and frontal lobe, 3 discrete seizures evolving from the left temporal, subclinical. Focal right arm clinical seizures were not present during the EEG, as i was bedside reading it, all these findings were subclinical. MRI Brain: shows enhancement in the temporal and parietal, left cortical region. * c/w Vimpat 100 mg IVP Q12H * 08/08/17: Acyclovir 600 mg IV Q8H added * 08/10/17: Keppra increased to 1,500 mg IV Q12H * 08/11/17: c/w Keppra, c/w Vimpat Valproic Acid increased to 1,500 mg IV Q12H and level 19.3 (L) on 08/12/17; Follow-up Valproic acid on 08/14 * 08/12/17: Discussed with neurology, patient may require transfer for refractory seizure * Patient for Lumbar Tap 08/08/17 by ICU Team and the following studies have been ordered and will need to be followed up: * Tube 1: cell count with differential, protein 44, glucose 69, Gram Stain negative, Cryptococcal Ag negative, Bacterial Ag, VDRL negative * Tube 2: HSV 1 PCR: negative , HSV 2 PCR: negative, AFB PCR, WNV PCR, Lyme PCR : negative * Tube 3: Bacterial Culture negative, AFB Smear and Culture negative, Fungal Smear and Culture negative, HSV Culture: not isolated (CSF) PCR: negative Cytology Anti-NMDAR Antibodies to look for E-Heiion-U-Aspartate Receptor Ab: does not show antibodies * CSF Gram Stain is negative to date * CSF Fungal Culture preliminary is negative to date * CSF Mycobacterium Culture shows NO AFB to date * Ceftriaxone 2 gram IV Q24H started 08/08/17 to finish 08/29/17 for 6 weeks * Dexamethasone 10 mg IV x 1 dose followed by 6 mg IV Q6H through 08/12/17 * 08/08/17: Acyclovir 600 mg IV Q8H added * 08/13: Discussed with ID, recommending total 10 days of Acyclovir (to complete 08/18/17), continue 4 weeks of Rocephin and Rifampin to complete 6 week antibiotic therapy for septic arthritis/endocarditis. Ceftriaxone 2 gram IV Q24H started 08/08/17 to finish 08/29/17 for 6 weeks, Rifampin 300mg PO TID ( started 08/02/17 for 6 weeks total) * PICC line (had been placed 07/24/17). * Monitor electrolytes 2) Hypokalemia/Hypomagnesemia * Replete as needed 3) Hyponatremia/SIADH - resolved, stable * Nephrology (Dr. Eddy) on the case, help appreciated * SIADH/ * Patient has received Tolvaptan 30 mg PO 1x/day on 08/03/17/, 08/04/17, 08/05/17, 08/06/17. * However patient is also on Rifampin (as part of treatment for Left Knee Septic Arthritis) and this may interfere with the Tolvaptan. * Aldactone 25 mg PO Q12H is on HOLD * Sodium has normalized 4) Septic arthritis-->will need 6 weeks of IV abx * Infectious Disease (Dr. Jannie Avina) on the case, help appreciated * Last admission: Patient was discharged on Ancef, Rifampin, and gentamicin. MICS available (07/26/17) and came back on 08/01/17. * Gentamicin Sulfate 70mg IVPB Q24H (active 08/04/17) X 5 bags with last dose on 08/08/17 * Monitor renal function * Rifampin 300mg PO TID (08/02/17) * Will impact Samsca * Stopped Vancomycin 750mg IVPB Q12H (started 08/03/17) - OK'd by Dr. Avina * Monitor renal function * Rocephin 2 g Q24H (started 08/08) * She will need a total of 6 weeks of Antibiotics with STOP DATE for Rifampin of 08/29/17 (before discontinuing on this date--Confirmed by ID on 08/13/17 * Orthopedics LONA Ann removed sutures 08/07/17 * 08/13: Discussed with ID, recommending total 10 days of Acyclovir (to complete 08/18/17), continue 4 weeks of Rocephin and Rifampin to complete 6 week antibiotic therapy for septic arthritis/endocarditis. Ceftriaxone 2 gram IV Q24H started 08/08/17 to finish 08/29/17 for 6 weeks, Rifampin 300mg PO TID ( started 08/02/17 for 6 weeks total) 5) H/O mitral valve replacement (bioprosthetic valve) * Cardiology (Dr. Rowan) on the case, help appreciated; Dr. Rush covering this weekend * Will need to follow-up in regards anticoagulation such as aspirin in regards to bioprosthetic valvue * Per cardiology, do not start chemical anticoagulation given recurrent history of GI bleeding * Echocardiogram (08/02/17): No ASD seen. * Echocardiogram (07/22/17): limited study, vegetation on MV cannot be excluded. Rec. ASTRID to define MV/Calcified mitral ring? * Echocardiogram (07/01/17): systolic function is severely impaired. Anterior and septa; aldridge reveal dyskinesis with wall thinning. (indicative of prior transmural [place]), inferior wall is severely hypokinestic, lateral wall is mod to severely hypokinetic, Left atrium is moderately dilated, right atrium is moderately dilated, mild concentric left ventricular hypertrophy, mild mitral valve stenosis, * Cardiac cath: severe multivessel coronary artery disease, severe left ventricular systolic dysfunction (2017) * Hx CABG * Prosthetic valve * NO ASTRID considering findings on MRI Brain 08/05/17 that showed chronic lacunar infarcts 6) Diabetes mellitus * [id number]: 5.1 * Controlled * Accuchecks Q6H 7) Hypertension * Lopressor 50mg PO BID * Crestor 40mg POqHS * Cozaar 25mg PO daily 8) Hx Coronary artery disease/CABG * Lopressor 50mg PO BID * Crestor 2.5mg POqHS * Cozaar 25mg PO daily 9) Severe systolic congestive heart failure * Lopressor, Cozaar, Crestor * On last admission recommends for outpatient AICD by Dr Rowan * Dr. Vandana Rowan, Cardiology * Echocardiogram (08/02/17): No ASD seen. * Echocardiogram (07/22/17): limited study, vegetation on MV cannot be excluded. Rec. ASTRID to define MV/Calcified mitral ring? * Echocardiogram (07/01/17): systolic function is severely impaired. Anterior and septa; aldridge reveal dyskinesis with wall thinning. (indicative of prior transmural [place]), inferior wall is severely hypokinestic, lateral wall is mod to severely hypokinetic, Left atrium is moderately dilated, right atrium is moderately dilated, mild concentric left ventricular hypertrophy, mild mitral valve stenosis, 10) Atelectasis * CT Chest (08/02/17): small right pleural effusion and right lower lobe subsegmental atelectasis. Opacity seen at right lung base on earlier chest radiograph of the same date was likely artifactual due to overlying medical equipment 11) Paroxysmal Atrial Fibrillation * Lopressor 5mg IVPQ6H * Lopressor 50mg PO BID * Per cardiology, hold chemical anticoagulation, patient has history of recurrent GI bleed * NO ASTRID considering findings on MRI Brain 08/05/17 that showed chronic lacunar infarcts 12) Fungal Rash (improved) * Inner groin folds and back side rash improving * Lotrimin 1% cream 13) UTI Yeast * 08/11/17: Started Diflucan (STOP DATE 08/17/17) to complete 7 days total of Diflucan * Repeat Urine Culture ordered for 08/15/17 14) Prophylactic measure * Resume Heparin 5000 units [id number] * Protonix 40mg IVP Q12H * Bacid 1 cap PO BID * Tylenol 650 mg Q6H PRN Fever * Duoneb Q6H PRN * PT/OT eval * Wound care * Aspiration precautions * Seizure precautions
== END 2017-08-14 16:46 | disposition short-term general hospital (02) | DRG 97 ==
LOC: C.ER 18:54 → C.9I 22:47 → C.3T 08-11 03:12
PROVIDERS: ADMIT Hospitalist; ATTEND Hospitalist
PROC: 5A1945Z Respiratory Ventilation, 24-96 Consecutive Hours (ICD-10-PCS; 2017-08-01)
PROC: 009U3ZX Drainage of Spinal Canal, Percutaneous Approach, Diagnostic (ICD-10-PCS; principal; 2017-08-08)
DX: G04.00 Acute disseminated encephalitis and encephalomyelitis, unspecified (principal); J96.91 Respiratory failure, unspecified with hypoxia; G40.919 Epilepsy, unspecified, intractable, without status epilepticus; E87.3 Alkalosis; M00.062 Staphylococcal arthritis, left knee; E22.2 Syndrome of inappropriate secretion of antidiuretic hormone; N17.9 Acute kidney failure, unspecified; B95.61 Methicillin susceptible Staphylococcus aureus infection as the cause of diseases classified elsewhere; I48.0 Paroxysmal atrial fibrillation; B36.9 Superficial mycosis, unspecified; I50.22 Chronic systolic (congestive) heart failure; I48.92 Unspecified atrial flutter; M86.9 Osteomyelitis, unspecified; B37.49 Other urogenital candidiasis; I38 Endocarditis, valve unspecified; J98.11 Atelectasis; J44.9 Chronic obstructive pulmonary disease, unspecified; I11.0 Hypertensive heart disease with heart failure; E83.42 Hypomagnesemia; E87.6 Hypokalemia; I25.10 Atherosclerotic heart disease of native coronary artery without angina pectoris; R29.729 NIHSS score 29; R47.1 Dysarthria and anarthria; R40.2431 Glasgow coma scale score 3-8, in the field [EMT or ambulance]; R21 Rash and other nonspecific skin eruption; I25.5 Ischemic cardiomyopathy; F03.90 Unspecified dementia, unspecified severity, without behavioral disturbance, psychotic disturbance, mood disturbance, and anxiety; G83.84 Todd's paralysis (postepileptic); E78.00 Pure hypercholesterolemia, unspecified; Z95.1 Presence of aortocoronary bypass graft; Z95.2 Presence of prosthetic heart valve; Z95.5 Presence of coronary angioplasty implant and graft